=== PATIENT | male | born 1955 | race Caucasian/White ===

== ENCOUNTER 2020-04-06 08:47 | Observation (INO) | payer MEDICARE, OTHER, SELFPAY ==
[2020-04-06] VITALS (32 sets, daily range): BP systolic 95–147; BP diastolic 44–95; PULSE 52–79; RESP 9–22; TEMP 35.6–36.6; O2SAT 96–100; BMI 42.2
--- NOTE | ~2020-04-06 | XR_ITS ---
EXAMINATION: XR chest 1V portable EXAM DATE: 04/06/2020 09:17 INDICATION: Chest pain, spasms to body. TECHNIQUE: Portable AP frontal chest x-ray was obtained. Comparison is made to prior examination from 01/01/2019. FINDINGS: There is a right-sided IJ approach Weaver catheter. Mild cardiomegaly. There is pulmonary vascular congestion. No confluent consolidation, pneumothorax or pleural effusion suspected. Patient has diffuse idiopathic skeletal hyperostosis (DISH). IMPRESSION: Cardiomegaly, pulmonary vascular congestion. Reviewed, dictated and finalized at location A.
--- NOTE | 2020-04-06 08:54 | ECG_ITS ---
Measurements Intervals [place] Rate: 72 P: TX: 0 QRS: -83 QRSD: 118 T: 103 QT: 400 QTc: 438 Interpretive Statements ATRIAL FIBRILLATION LOW QRS VOLTAGE IN PRECORDIAL LEADS INCOMPLETE RIGHT BUNDLE BRANCH BLOCK INFERIOR INFARCT, AGE INDETERMINATE ANTEROSEPTAL INFARCT, AGE INDETERMINATE BASELINE ARTIFACT- II, III ABNORMAL ECG Electronically Signed On 04-06-2020 15:05:08 CDT by Jaiden Munoz D.O.
--- NOTE | 2020-04-06 09:09 | ED.CHESTPAIN ---
HPI - Chest Pain General Chief Complaint: Chest Pain Stated Complaint: cp Time Seen by Provider: 04/06/20 08:54 Source: RN notes reviewed History of Present Illness HPI narrative: Patient presents emergency department from dialysis for chest pain. Patient was approximately 2 hours and was 3 and half hour dialysis when he began to experience pain in his left middle chest going to his left chest and his left arm. Described as a pressure at that time. He also states he began to feel very anxious during that time. Patient was given Benadryl 50 mg by staff there and transported the ED for further evaluation. Patient currently states his chest pain resolved but is still feeling anxious. States he does have a history of anxiety. Notes associated shortness of breath with the symptoms. Denies any fevers or chills abdominal pain nausea vomiting or any other symptoms. Patient states he has a history of a previous IN as well as history of atrial fibrillation he is followed by cardiology in [place] patient states he has a history of 2 previous cardiac stents Related Data Home Medications Medication Instructions Recorded Confirmed allopurinol 100 mg DAILY 04/06/20 04/06/20 apixaban [Eliquis] 5 mg BID 04/06/20 04/06/20 brimonidine 0.2 % OPHTHALMIC (EYE) BID 04/06/20 04/06/20 carvedilol 3.125 mg BID 04/06/20 04/06/20 dorzolamide-timolol 22.3 ml BID 04/06/20 04/06/20 gabapentin 300 mg BID 04/06/20 04/06/20 insulin aspart U-100 [Novolog See Rx Instructions .ROUTE .COMPLEX 04/06/20 04/06/20 Flexpen U-100 Insulin] rosuvastatin 10 mg DAILY 04/06/20 04/06/20 sertraline 100 mg DAILY 04/06/20 04/06/20 trazodone 50 mg PO PRN PRN 04/06/20 04/06/20 Allergies Allergy/AdvReac Type Severity Reaction Status Date / Time shellfish derived Allergy Intermediate Unknown Verified 04/06/20 09:08 heparin Allergy Unknown Unknown Verified 04/06/20 09:08 iohexol Allergy Unknown Unknown Verified 04/06/20 09:09 [From contrast - CT, X-RAY] spironolactone Allergy Unknown Unknown Verified 04/06/20 09:08 [From Aldactone] Yvvferr-Jhm-Gii Reductase Allergy Unknown Unknown Verified 04/06/20 09:08 Inhibitor Review of Systems Review of Systems: Narrative: Gen.: Denies fevers or chills ENT: Denies congestion Respiratory: Reports shortness of breath CV: Reports chest pain GI: Denies abdominal pain nausea, emesis or diarrhea denies burning, urgency, frequency or hematuria Musculoskeletal: Denies back pain or muscle pain Neuro: Denies numbness, tingling, weakness or focal weakness Skin: Denies rash Except as documented, all other systems reviewed and negative [facility] Past Medical History Medical History (Updated 04/06/20 @ 18:55 by Wai Nur DO) Atrial fibrillation Chronic kidney disease with end stage renal failure on dialysis Social History Social History (Updated 04/06/20 @ 09:10 by Wai Nur DO) Smoking status: Never smoker Alcohol intake: never Substance use: never Substance use type: does not use Gender identity (if verbalized by the patient): Male Spiritual care concerns: No Exam Narrative: Exam Narrative: APPEARANCE: Mildly anxious in appearance nontoxic, resting in bed EYES: EOMI HEENT: Normocephalic, atraumatic, OMM RESPIRATORY: No respiratory distress Clear to auscultation bilaterally with no rhonchi wheezing or rales. CARDIOVASCULAR: Regular rate and rhythm without murmurs rubs or gallops. ABDOMINAL: Soft, nontender, nondistended, no rebound or guarding Extremities: Moves all extremities, 3+ edema of the bilateral lower extremities NEURO: Awake and alert. Following commands, speech normal, no focal deficits SKIN:: Warm, dry. No rashes lesions or abrasions PSYCHIATRIC: Normal affect/mood, Course Course Emergency Course: Discussed with Dr. Isaac presentation work-up. Agrees with admission at this time Discussed with Dr. Lock presentation work-up agrees with admission at this time Discuss
[2020-04-06 09:14] LABS: Basophils Percent Auto 0.8 % (0.2-1.2); Eosinophils Absolute Auto 0.2 K/mm3 (0-0.3); Eosinophils Percent Auto 4.2 % (0-4.4); Hematocrit 24.8 % (42.0-52.0); Hemoglobin 7.9 g/dL (14.0-18.0); Immature Granulocyte Absolute 0.02 K/mm3 (0.00-0.031); Immature Granulocyte Percent A 0.4 % (0-0.5); Lymphocytes Absolute Auto 0.97 K/mm3 (0.9-3.2); Lymphocytes Percent Auto 20.4 % (18.3-44.2); Mean Corpuscular HGB Conc 31.9 g/dl (32-36); Mean Corpuscular Hemoglobin 25.5 pg (26-34); Mean Platelet Volume 10.5 fl (7.4-10.4); Monocytes Absolute Auto 0.6 K/mm3 (0.1-0.6); Monocytes Percent Auto 13.3 % (2.6-8.5); Neutrophils Absolute Auto 2.9 K/mm3 (1.3-6.7); Neutrophils Percent Auto 60.9 % (45.5-73.1); Platelet Count Result 168 k/mm3 (150-375); Red Cell Distribution Width 21.5 % (11.5-14.5); White Blood Count 4.8 K/mm3 (4.5-10.0)
[2020-04-06 09:20] LABS: Prothrombin Time 21.9 Seconds (11.1-14.7)
[2020-04-06 09:21] LABS: Partial Thromboplastin Time 38.4 SECONDS (22.3-36.8)
[2020-04-06 09:22] LABS: Anion Gap 13 mmol/L (8-16); Blood Urea Nitrogen 45 mg/dL (9-20); Calcium 8.5 mg/dL (8.4-10.2); Carbon Dioxide 25 mmol/L (22-30); Chloride 97 mmol/L (98-107); Estimated CRCL calculation 44 ml/min; Estimated Glomerular Filt Rate 32; Glucose 110 mg/dL (75-110); Potassium 4.5 mmol/L (3.4-5.0); Sodium 135 mmol/L (137-145)
[2020-04-06 09:34] LABS: Troponin I 0.029 ng/mL (0.000-0.034)
[2020-04-06 09:40] LABS: Platelet Estimate Adequate (Adequate)
[2020-04-06 09:41] LABS: Hypochromasia 2+ (NORMAL); Poikilocytosis 2+ (NORMAL); Target Cells 1+ (NORMAL)
[2020-04-06 09:42] LABS: Ovalocytes 2+ (NORMAL)
[2020-04-06 12:35] LABS: Troponin I 0.024 ng/mL (0.000-0.034)
--- NOTE | 2020-04-06 13:30 | ADMGEN ---
This patient, Rl Gomez, was admitted to IMU Room 213-01. Patient/family oriented to hospital policies and general routines including ID bracelet, bed and alarms, visiting hours, pain management, procedures, bathroom and other care routines, personal items, smoking policy, room service/diet, and visiting hours. Valuables list has been completed. Information on how to activate the Rapid Response Team has been discussed. Patient/Family are encouraged to report perceived risks to care and to ask questions if they do not understand what they are told or what they should do.
--- NOTE | 2020-04-06 13:39 | PM.CNCAR ---
Assessment and Plan Additional Plan this is a 64-year-old man with chronic complicated cardiovascular history also with advanced renal failure on dialysis for several weeks from what he describes. He was admitted to our hospital to rule out an acute coronary syndrome which seems unlikely based on the initial presentation. The electrocardiogram does not appear to be unchanged in comparison to tracings that are described by his established agronomy research manager. His biomarkers at least times the 1st set are negative. Was simply admitted for observation keep him on his standard medical regimen that he has been on if his biomarkers do not rise significantly he can be discharged for follow-up with his establish positions. I would not anticipate conducting an ischemic workup here at [facility] when he has longstanding cardiac care established at [facility] Barrington Lock MD [facility] History of Present Illness History of Present Illness Consult date/time: 04/06/20 13:39 Consult reason: chest pain Reason For Visit: Chest pain. Narrative: this is a 64-year-old man I am seeing at the request of the hospitalist to evaluate because of some chest pain that occurred this morning while he was being dialyzed. The patient has a history of longstanding are renal disease and apparently has recently developed progressive renal disease into this was recently started on hemodialysis. He states he was in the hospital at [facility] for almost the entire month of March was managed by his team of cardiologists, internists and buckle frame shaper. 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 During dialysis this morning apparently he was feeling unwell with a sense of anxiety and some shortness of breath. They summoned an ambulance and sent appeared [facility] for emergency department evaluation after which he was admitted to the hospital. The patient receives none of his medical care here at [place] from what I can tell. He feels fairly well now and does not describe any ongoing chest pain. The patient has a history of coronary artery disease as well as ventricular arrhythmias and ischemic cardiomyopathy. According to the chart that I have reviewed he presented in February of 2006 an acute anterior wall myocardial infarction at which time he underwent emergency PCI of the left anterior descending receiving a Cypher drug-eluting stent with successful revascularization. Since then it looks like his left ventricular ejection fraction according to the records of his agronomy research manager has been running about 35%. He has had some follow-up heart catheterization is the last 1 was done in September of 2010 which did not show any significant flow-limiting lesions. His last ischemia evaluation was in March of 2019 which did not show any significant ischemic burden. He did have a fixed defect compatible with his prior infarction. He also has a history of arrhythmias both second-degree AV block as well as a bifascicular block. He had a pacemaker / defibrillator device placed a long time ago. He states that in 2016 a following an attempt at upgrading the device to a biventricular pacemaker unfortunately the pocket became infected and the entire device and the leads had to be extracted. Since then he has not had a pacemaker or a defibrillator implanted. His electrocardiogram on arrival here shows sinus rhythm with second-degree AV block Mobitz type 1 and right bundle branch block and left anterior superior hemiblock. His troponin levels x1 set are not significantly abnormal. According to the record he also carries the diagnosis of paroxysmal atrial fibrillation. He was previously anticoagulated with apixaban is not currently apparently at the advice of his GI physician because of some esophageal erosions. Review of Systems Constitutional: Constitutional: Reports fatigue and Reports lethargy Eyes: Eye
--- NOTE | 2020-04-06 15:00 | PM.IMHP ---
H&P: HPI History of Present Illness Date/Time: 04/06/20 15:00 <Brenda Ibarra PA-C - Last Filed: 04/06/20 23:25> Chief complaint: Chest pain. <Brenda Ibarra PA-C - Last Filed: 04/06/20 23:25> Narrative: Rl Gomez is a a pleasant 64-year-old male with complicated medical history including coronary artery disease with history of stents, ischemic cardiomyopathy and ventricular arrhythmia with history of ICD insertion and subsequent removal due to pocket infection, paroxysmal atrial fibrillation not currently on anticoagulation end-stage renal disease recently started on hemodialysis, insulin-dependent diabetes, hypertension, anemia, and several other comorbidities who presented to the emergency department earlier today via EMS from dialysis for evaluation of chest pain. It sounds as though he was hospitalized at [facility] for almost the entire month of March 06 after he was initially admitted with a 45 lb weight gain. At that time he was started on dialysis and his volume status did improve, as well as his creatinine levels and there are hopes that he will not have to be on dialysis permanently. Today was his 3rd or 4th treatment since discharge from the hospital, and he has been tolerating them pretty well. Nearly 2 hours into his dialysis this morning he began feeling extremely anxious, restless, and shortness of breath and then developed a squeezing discomfort in his left anterior chest radiating into the left shoulder. He received Benadryl at dialysis and was given 324 mg aspirin and 1 sublingual nitroglycerin EN route to the hospital with improvement in the discomfort, which is not returned. He remains somewhat short of breath, mainly when lying supine. He denies associated chills, sweats, nausea, and vomiting. No pleuritic pain, palpitations, near-syncope, or syncope. <Brenda Ibarra PA-C - Last Filed: 04/06/20 23:25> Review of Systems Review of Systems: Narrative: Twelve systems were reviewed with pertinent positives and negatives as per HPI. No fever, chills, or sweats. He denies recent cold and flu symptoms. He has chronic lower extremity edema and lymphedema with chronic bilateral leg wounds for which he sees a wound care physician in [place]. These are stable and remain unchanged. He believes his diabetes is well controlled with recent hemoglobin A1c of around 6.1. He does have neuropathy in the lower legs. He related to myself and Dr. Lock that he was not taking apixaban at this time due to esophageal erosions, but this needs to be clarified. Except as documented, all other systems were reviewed and are negative. <Brenda Ibarra PA-C - Last Filed: 04/06/20 23:25> [facility] Past Medical History Medical History: Medical History (Updated 04/06/20 @ 21:26 by Brenda Ibarra PA-C) Chronic anemia Coronary artery disease End-stage renal disease on hemodialysis Glaucoma Hyperlipidemia Hypertension Insulin dependent diabetes mellitus Ischemic cardiomyopathy Patient reports recent ejection fraction of about 35%. Osteoarthritis Paroxysmal atrial fibrillation Ventricular tachyarrhythmia <Brenda Ibarra PA-C - Last Filed: 04/06/20 23:25> Surgical History Surgical History: Surgical History (Updated 04/06/20 @ 21:21 by Brenda Ibarra PA-C) History of bilateral knee arthroplasty History of cardiac catheterization (~2005) With history of stent to the LAD. History of implantable cardioverter-defibrillator (ICD) insertion With subsequent removal due to pocket infection. History of orthopedic surgery Right arm ORIF with hardware. History of tonsillectomy History of tracheostomy After lengthy hospitalization in 2018 for sepsis due to cellulitis. Status post debridement Multiple debridements of bilateral lower leg wounds over the years. <Brenda Ibarra PA-C - Last Filed: 04/06/20 23:25> Family History Family History: Family History (Updated 10
[2020-04-06 16:04] LABS: Troponin I 0.024 ng/mL (0.000-0.034)
[2020-04-07] VITALS (9 sets, daily range): BP systolic 116–118; BP diastolic 58–64; PULSE 45–70; RESP 20–22; TEMP 35.9–36.1; O2SAT 100
[2020-04-07] MEDS: GABAPENTIN 300 MG CAPSULE PO ×2 (00:59→08:46)
[2020-04-07] MEDS: traZODone HCL 50 MG TABLET PO (00:59)
[2020-04-07] MEDS: APIXABAN 5 MG TABLET PO ×2 (00:59→08:47)
[2020-04-07] MEDS: DORZOLAMIDE/TIMOLOL OPHTH SOL 10 ML BOTTLE 1 DROP EACH EYE ×2 (01:00→08:47)
[2020-04-07] MEDS: BRIMONIDINE TARTRATE 0.2% OP SOLN 5 ML BTL 1 DROP EACH EYE ×2 (01:00→08:47)
[2020-04-07 05:33] LABS: Basophils Percent Auto 0.9 % (0.2-1.2); Eosinophils Absolute Auto 0.3 K/mm3 (0-0.3); Eosinophils Percent Auto 5.9 % (0-4.4); Hematocrit 23.5 % (42.0-52.0); Hemoglobin 7.6 g/dL (14.0-18.0); Immature Granulocyte Absolute 0.01 K/mm3 (0.00-0.031); Immature Granulocyte Percent A 0.2 % (0-0.5); Lymphocytes Absolute Auto 0.93 K/mm3 (0.9-3.2); Mean Corpuscular HGB Conc 32.3 g/dl (32-36); Mean Corpuscular Hemoglobin 25.8 pg (26-34); Mean Corpuscular Volume 79.7 fl (80-100); Mean Platelet Volume 10.9 fl (7.4-10.4); Monocytes Absolute Auto 0.6 K/mm3 (0.1-0.6); Monocytes Percent Auto 13.7 % (2.6-8.5); Neutrophils Absolute Auto 2.4 K/mm3 (1.3-6.7); Neutrophils Percent Auto 57.3 % (45.5-73.1); Platelet Count Result 193 k/mm3 (150-375); Red Blood Count 2.95 M/mm3 (4.6-6.20); Red Cell Distribution Width 21.3 % (11.5-14.5); White Blood Count 4.2 K/mm3 (4.5-10.0)
[2020-04-07 05:51] LABS: Alanine Aminotransferase 9 U/L (4-50); Albumin Level 3.3 g/dL (3.5-5.1); Alkaline Phosphatase 107 U/L (38-126); Anion Gap 9 mmol/L (8-16); Aspartate Amino Transferase 20 U/L (17-59); Bilirubin,Total 0.7 mg/dL (0.2-1.3); Blood Urea Nitrogen 56 mg/dL (9-20); Calcium 8.5 mg/dL (8.4-10.2); Carbon Dioxide 26 mmol/L (22-30); Chloride 97 mmol/L (98-107); Estimated CRCL calculation 38 ml/min; Estimated Glomerular Filt Rate 27; Glucose 103 mg/dL (75-110); Potassium 4.2 mmol/L (3.4-5.0); Sodium 132 mmol/L (137-145)
[2020-04-07 06:18] LABS: Platelet Estimate Adequate (Adequate)
[2020-04-07 06:19] LABS: Atypical Lymphocytes Present; Ovalocytes 1+ (NORMAL)
[2020-04-07 06:20] LABS: Hypochromasia 1+ (NORMAL); Target Cells 1+ (NORMAL)
[2020-04-07 08:08] LABS: Glucose Point of Care 93 (65-105)
[2020-04-07] MEDS: allopurinoL 100 MG TABLET PO (08:45)
[2020-04-07] MEDS: carvediloL 3.125 MG TABLET PO (08:47)
[2020-04-07] MEDS: BUMETANIDE INJ 1 MG/4 ML VIAL 2 MG IV PUSH (08:50)
--- NOTE | 2020-04-07 09:43 | PM.PNCARD ---
Progress Note: A&P Additional Plan 64-year-old man with complicated cardiac history, previous myocardial infarction as well as ischemic cardiomyopathy. No objective evidence of an acute coronary syndrome. There is no further cardiac reason this gentleman needs to be hospitalized here at [place]. Follow-up will be with his established physicians at [facility] in [facility]. Barrington Lcok MD [facility] Subjective Date/time seen: Date of service: 04/07/20 09:43 Interval history: Follow-up visit in this 64-year-old man admitted with an episode of distress when he was being dialyzed yesterday. Admitted primarily to rule out acute coronary syndrome. Troponin sample are all within normal limits the patient was informed of this. No further chest pain. Patient was sleeping flat in bed when I entered the room to see him Exam Const: General: comfortable and no acute distress Eyes: Sclera: sclerae normal Neck: Neck: supple and no JVD Resp: Effort & Inspection: normal respiratory effort Auscultation: clear to auscultation bilaterally Cardio: Rate: regular rate Rhythm: regular rhythm GI: Auscultation: normal bowel sounds Skin: General skin exam: normal color Neuro: Cognition (Neuro): normal cognition Objective Data Vital Signs Vital Signs: Vital Signs - 24 hr 04/06/20 09:45 04/06/20 09:46 04/06/20 10:00 Temperature Pulse Rate 73 67 74 Respiratory Rate 17 17 16 Blood Pressure 117/73 Pulse Oximetry 100 99 04/06/20 10:01 04/06/20 10:15 04/06/20 10:16 Temperature Pulse Rate 75 73 74 Respiratory Rate 19 14 19 Blood Pressure 108/92 H 133/95 H Pulse Oximetry 96 100 100 04/06/20 10:30 04/06/20 10:31 04/06/20 10:45 Temperature Pulse Rate 73 74 73 Respiratory Rate 11 L 9 L Blood Pressure 122/74 Pulse Oximetry 96 04/06/20 10:46 04/06/20 10:48 04/06/20 11:00 Temperature Pulse Rate 73 73 72 Respiratory Rate 18 Blood Pressure 122/95 H 122/95 H Pulse Oximetry 97 100 100 04/06/20 11:02 04/06/20 11:15 04/06/20 11:17 Temperature Pulse Rate 72 72 Respiratory Rate Blood Pressure 106/50 L 95/44 L Pulse Oximetry 04/06/20 12:53 04/06/20 14:00 04/06/20 16:00 Temperature 35.6 C L Pulse Rate 55 L 55 L 63 Respiratory Rate 18 Blood Pressure 120/76 Pulse Oximetry 100 04/06/20 16:51 04/06/20 18:00 04/06/20 19:27 Temperature 36.0 C L 35.9 C L Pulse Rate 54 L 60 56 L Respiratory Rate 22 H 18 Blood Pressure 130/66 126/73 Pulse Oximetry 100 100 04/06/20 20:00 04/06/20 22:00 04/06/20 23:56 Temperature 36.1 C L Pulse Rate 57 L 58 L 52 L Respiratory Rate 18 Blood Pressure 122/65 Pulse Oximetry 100 100 04/07/20 00:00 04/07/20 01:00 04/07/20 02:00 Temperature Pulse Rate 62 45 L 60 Respiratory Rate Blood Pressure Pulse Oximetry 100 04/07/20 04:00 04/07/20 06:00 04/07/20 08:19 Temperature 36.1 C L 35.9 C L Pulse Rate 67 58 L 63 Respiratory Rate 20 22 H Blood Pressure 118/58 L 116/64 Pulse Oximetry 100 100 04/07/20 08:47 Temperature Pulse Rate 69 Respiratory Rate Blood Pressure Pulse Oximetry Intake/Output Intake/Output: Intake & Output 04/04/20 04/05/20 04/06/20 04/07/20 23:59 23:59 23:59 23:59 Intake Total 830 240 Output Total 100 400 Balance 730 -160 Meds/Results Medications: Active Medications Generic Name Dose Route Start Last Admin Trade Name Yazmin PRN Reason Stop Dose Admin Allopurinol 100 mg 04/07/20 08:00 04/07/20 08:45 Zyloprim PO 100 mg DAILY@0800 CHELSEY Administration Apixaban 5 mg 04/07/20 00:50 04/07/20 08:47 Eliquis PO 5 mg BID CHELSEY Administration Brimonidine Tartrate 1 drop 04/07/20 00:50 04/07/20 08:47 Alphagan 0.2% Op Soln EACH EYE 1 drop Q12HR CHELSEY Administration Carvedilol 3.125 mg 04/07/20 00:50 04/07/20 08:47 Coreg PO 3.125 mg Q12HR CHELSEY Administration Dextrose 12.5 gm 04/06/20 21:29 Dextrose
--- NOTE | 2020-04-07 11:16 | PM.DS ---
DS: Admitting Diagnosis Admitting Diagnosis Admitting Diagnosis: Chest pain. DS: Discharge Diagnosis Discharge Diagnosis (1) Chest pain: Code(s): R07.9 - Chest pain, unspecified Status: Acute (2) Paroxysmal atrial fibrillation: Code(s): I48.0 - Paroxysmal atrial fibrillation Status: Acute (3) End-stage renal disease on hemodialysis: Code(s): N18.6 - End stage renal disease; Z99.2 - Dependence on renal dialysis Status: Acute (4) Coronary artery disease: Code(s): I25.10 - Atherosclerotic heart disease of [place] coronary artery without angina pectoris Status: Acute (5) Ischemic cardiomyopathy: Code(s): I25.5 - Ischemic cardiomyopathy Status: Acute (6) Glaucoma: Code(s): H40.9 - Unspecified glaucoma Status: Acute (7) Insulin dependent diabetes mellitus: Status: Acute (8) Hypertension: Code(s): I10 - Essential (primary) hypertension Status: Acute (9) Hyperlipidemia: Code(s): E78.5 - Hyperlipidemia, unspecified Status: Acute (10) Chronic anemia: Code(s): D64.9 - Anemia, unspecified Status: Acute DS: Summary Hospital Course Reason for hospitalization: Chief complaint: Chest pain. <Brenda Ibarra PA-C - Last Filed: 04/06/20 23:25> Narrative: Rl Gomez is a a pleasant 64-year-old male with complicated medical history including coronary artery disease with history of stents, ischemic cardiomyopathy and ventricular arrhythmia with history of ICD insertion and subsequent removal due to pocket infection, paroxysmal atrial fibrillation not currently on anticoagulation end-stage renal disease recently started on hemodialysis, insulin-dependent diabetes, hypertension, anemia, and several other comorbidities who presented to the emergency department earlier today via EMS from dialysis for evaluation of chest pain. It sounds as though he was hospitalized at [facility] for almost the entire month of March 06 after he was initially admitted with a 45 lb weight gain. At that time he was started on dialysis and his volume status did improve, as well as his creatinine levels and there are hopes that he will not have to be on dialysis permanently. Today was his 3rd or 4th treatment since discharge from the hospital, and he has been tolerating them pretty well. Nearly 2 hours into his dialysis this morning he began feeling extremely anxious, restless, and shortness of breath and then developed a squeezing discomfort in his left anterior chest radiating into the left shoulder. He received Benadryl at dialysis and was given 324 mg aspirin and 1 sublingual nitroglycerin EN route to the hospital with improvement in the discomfort, which is not returned. He remains somewhat short of breath, mainly when lying supine. He denies associated chills, sweats, nausea, and vomiting. No pleuritic pain, palpitations, near-syncope, or syncope. 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 Status at Discharge Functional status at discharge: independent ambulation Overall status at discharge: patient is back to baseline Time Spent with Patient Time attestation: Total time spent providing and/or coordinating discharge services: Patient was seen and examined at the time of the discharge Condition at discharge is stable Code status: Full code. Time spent preparing disc
[2020-04-07 12:48] LABS: Free T4 Free Thyroxine Reflex 1.08 ng/dL (0.78-2.19)
[2020-04-07 13:53] LABS: Total Triiodothyronine (T3) 0.84 NG/ML (0.97-1.69)
== END 2020-04-07 13:37 | disposition home health service (06) ==
LOC: ANHED 09:28 → ANHIMU 11:20
PROVIDERS: Physician Assistant; Admitting Provider Family Medicine; Emergency Provider Emergency Medicine; Visit Provider Family Medicine
DX: R07.9 Chest pain, unspecified (principal); I12.0 Hypertensive chronic kidney disease with stage 5 chronic kidney disease or end stage renal disease; R06.02 Shortness of breath; N18.6 End stage renal disease; Z99.2 Dependence on renal dialysis; I48.0 Paroxysmal atrial fibrillation; R94.31 Abnormal electrocardiogram [ECG] [EKG]; I51.7 Cardiomegaly; R09.89 Other specified symptoms and signs involving the circulatory and respiratory systems; I25.10 Atherosclerotic heart disease of native coronary artery without angina pectoris; I25.2 Old myocardial infarction; E11.9 Type 2 diabetes mellitus without complications; I25.5 Ischemic cardiomyopathy; I44.1 Atrioventricular block, second degree; I45.10 Unspecified right bundle-branch block; D64.9 Anemia, unspecified; E78.5 Hyperlipidemia, unspecified; Z95.1 Presence of aortocoronary bypass graft; Z79.4 Long term (current) use of insulin; Z79.01 Long term (current) use of anticoagulants
CPT/HCPCS: 36415; 71045; 80048; 80076; 83036; 84439; 84443; 84480; 84484; 85025; 85610; 85730; 93005; 96374; 99285; A9270; G0378

== ENCOUNTER 2020-05-23 17:06 | Inpatient (IN) | payer MEDICARE, OTHER, SELFPAY ==
[2020-05-23] VITALS (28 sets, daily range): BP systolic 88–128; BP diastolic 44–78; PULSE 40–63; RESP 14–22; TEMP 36.1–36.3; O2SAT 89–100
--- NOTE | ~2020-05-23 | CT_ITS ---
EXAMINATION: CT cervical spine wo con DATE: 05/23/2020 23:18 INDICATION: Fall with head injury TECHNIQUE: Computed tomography (CT) of the cervical spine was performed without intravenous contrast. Automated exposure control and iterative reconstruction technique were employed. The dose-length pro duct was 500.35 mGy-cm. COMPARISON: None FINDINGS: Mild cervical thoracic levocurvature. Sagittal alignment is normal. Diffuse osteopenia. Vertebral bod y heights are normal. No fracture. Severe disc height loss at C5-C6. Mild disc height loss at C2-C3 t hrough C4-C5 and at C7-T1. Severe osteoarthritis at the atlantoaxial articulation. Cervical soft tiss ues are unremarkable. Mild right apical pleural-parenchymal scarring. The following disc levels are s pecifically discussed: C2-C3: The disc does not extend beyond the endplate margin. There is mild bilateral uncovertebral kenyatta nt osteoarthritis. There is moderate right and severe left facet joint osteoarthritis. There is mild bilateral neural foraminal stenosis. There is no central canal stenosis. C3-C4: Disc is mildly bulging. There is anterior and posterior spinal fusion across the bilateral unc overtebral and facet joints. There is mild right and moderate left neural foraminal stenosis. There i s mild central canal stenosis. C4-C5: Disc is mildly bulging. There is moderate bilateral uncovertebral joint osteoarthritis. There is moderate left and severe right facet joint osteoarthritis. There is mild bilateral neural foramina l stenosis. There is mild central canal stenosis. C5-C6: Posterior disc osteophyte complex is present. There is severe bilateral uncovertebral joint os teoarthritis. There is moderate left and severe right facet joint osteoarthritis. There is moderate r ight and mild to moderate left neural foraminal stenosis. There is mild central canal stenosis. C6-C7: Disc is mildly bulging. There is mild bilateral uncovertebral joint osteoarthritis. There is s evere bilateral facet joint osteoarthritis. There is minimal bilateral neural foraminal stenosis. The re is mild central canal stenosis. C7-T1: The disc does not extend beyond the endplate margin. There is no uncovertebral joint osteoarth ritis. There is severe bilateral facet joint osteoarthritis. There is minimal left neural foraminal s tenosis. There is no central canal stenosis. IMPRESSION: 1. Severe cervical spondylosis. No acute osseous abnormality. Reviewed, dictated and finalized at location H. MAKER
--- NOTE | ~2020-05-23 | XR_ITS ---
EXAMINATION: XR ribs RT 2V DATE: 05/23/2020 21:19 INDICATION: Right rib pain post fall TECHNIQUE: A frontal inspiratory view of the chest and 3 views of the right ribs were obtained. COMPARISON: Chest radiograph dated 05/23/2020 FINDINGS: No rib fractures identified. Again seen are opacities in the left mid to lower lung zone. Right lung is clear. No pneumothorax, pulmonary edema or pleural effusion. Cardiomegaly with pulmonary vascular congestion. Large-bore dual-lumen right internal jugular central venous catheter with distal tip at t he high right atrium. IMPRESSION: 1. No rib fracture. 2. Opacities in the left mid to lower lung zone which could represent atelectasis, pneumonia, small l eft pleural effusion or some combination thereof. Reviewed, dictated and finalized at [facility]. CERY CLERK IMPRESSION: 1. No rib fracture. 2. Opacities in the left mid to lower lung zone which could represent atelectas is, pneumonia, small left pleural effusion or some combination thereof.
--- NOTE | ~2020-05-23 | CT_ITS ---
EXAMINATION: CT brain wo con DATE: 05/23/2020 23:18 INDICATION: Fall with head injury TECHNIQUE: Computed tomography (CT) of the head was performed without intravenous contrast. Sagittal and coronal reconstructions were performed. Automated exposure control and iterative reconstruction t echnique were employed. The dose-length product was 681.00 mGy-cm. COMPARISON: None FINDINGS: No fracture. No acute intracranial hemorrhage, acute infarction or abnormal extra axial fluid collect ion. Ventricles are normal and symmetric. No mass/mass effect. Changes of left intraocular lens repla cement. There is an additional density along the inferomedial aspect of the left globe, possibly a Ba erveldt valve, but would correlate with ophthalmic history. The right orbit, paranasal sinuses and ma stoid air cells are normal. Intracranial calcified cerebral atherosclerosis is noted. IMPRESSION: 1. No fracture or acute intracranial process. Reviewed, dictated and finalized at [facility]. ORK INTELLIGENCE ANALYST
--- NOTE | ~2020-05-23 | CT_ITS ---
EXAMINATION: [facility] EXAM DATE: 05/26/2020 00:29 INDICATION: Fall, head injury. TECHNIQUE: Spiral CT of the head was performed without contrast. Axial, coronal and sagittal images were reviewed. The dose-length product (DLP) for this examination was 1362.00 mGy-cm. The exposure was tailored according to patient size, and iterative reconstruction (ASIR) was used as additional do se reduction technique. Comparison is made to prior examination from 05/23/2020. FINDINGS: There is no acute intraparenchymal hemorrhage. No evidence of intraparenchymal brain mass lesion. No evidence of acute infarction. There is no mass effect or midline shift. The ventricles are normal in size. There are no extra-axial collections. There are no acute calvarial fractures. Esperanza paige has had left-sided ocular lens surgery. Soft tissue is unremarkable. The visualized sinuses and mastoid air cells are well aerated. IMPRESSION: No acute intracranial findings. Reviewed, dictated and finalized at location A. CAL INSTRUMENTS ASSEMBLER
--- NOTE | ~2020-05-23 | XR_ITS ---
EXAMINATION: XR chest 1V DATE: 05/23/2020 19:00 INDICATION: Hypotension, bradycardia and syncope with right rib pain post fall TECHNIQUE: frontal view of the chest was obtained. COMPARISON: Chest radiograph dated 04/06/2020 FINDINGS: Large-bore dual-lumen right internal jugular central venous catheter with distal tip projecting over the region of the superior cavoatrial junction. Patient is rotated slightly towards the left. No sign ificant change accounting for differences in patient positioning and airspace opacities in the left m id and bilateral lower lung zones. Blunting at the left phrenic angle suggesting possible small left pleural effusion. No pneumothorax. Cardiomegaly with pulmonary vascular congestion. IMPRESSION: 1. Opacities in the left mid and bilateral lower lung zones which could represent atelectasis and/or pneumonia. 2. Possible small left pleural effusion. 3. Cardiomegaly. Reviewed, dictated and finalized at [facility]. TIONAL TESTER TYPEWRITERS IMPRESSION: 1. Opacities in the left mid and bilateral lower lung zones which could represe nt atelectasis and/or pneumonia. 2. Possible small left pleural effusion. 3. Cardiomegaly.
--- NOTE | 2020-05-23 17:11 | ECG_ITS ---
Measurements Intervals [place] Rate: 44 P: 128 TX: 62 QRS: -77 QRSD: 112 T: 119 QT: 499 QTc: 429 Interpretive Statements SINUS OR ECTOPIC ATRIAL BRADYCARDIA WITH FIRST DEGREE AV BLOCK RIGHT BUNDLE BRANCH BLOCK BASELINE ARTIFACT- II, III, AVF ABNORMAL ECG Electronically Signed On 05-23-2020 20:18:42 [employer]NAGER [employer]CH[employer] by Jaiden Munoz D.O.
[2020-05-23] MEDS: SODIUM CHLORIDE 0.9% IV 1,000 ML 999 ML IV CONT (17:45)
--- NOTE | 2020-05-23 17:55 | ED.GENADULT ---
HPI - General Adult General Chief complaint: Chest Pain Stated complaint: cp, sob, fall Time Seen by Provider: 05/23/20 17:16 Source: patient and EMS Limitations: no limitations History of Present Illness HPI narrative: 64 years old white male presents with right chest pain after a fall this morning. Patient denies any fever, chills, nausea, vomiting, shortness of breath, exposure to anybody with COVID-19. Patient had recent diagnosis of kidney failure, on hemodialysis 1 month ago, scheduled for dialysis this morning and usually patient takes alprazolam prior to the dialysis day. Got up this morning to go to the bathroom lost his balance and fell, possible head and neck injury, also right chest pain after the fall. Patient is not sure what did he had in the way down to the floor. No loss of consciousness. Patient on Eliquis, history of atrial fibrillation. History of diabetes with diabetic ulcers and wound lower extremities for 2 years, was seen by his wound care doctor yesterday and everything was okay. Related Data Home Medications Medication Instructions Recorded Confirmed Eliquis 5 mg PO BID 04/06/20 04/06/20 allopurinol 100 mg PO DAILY 04/06/20 04/06/20 brimonidine 0.2 % OPHTHALMIC (EYE) BID 04/06/20 04/06/20 carvedilol 3.125 mg PO BID 04/06/20 04/06/20 dorzolamide-timolol 22.3 ml OPHTHALMIC (EYE) BID 04/06/20 04/06/20 gabapentin 300 mg PO BID 04/06/20 04/06/20 insulin aspart U-100 [Novolog See Rx Instructions .ROUTE .COMPLEX 04/06/20 04/06/20 Flexpen U-100 Insulin] rosuvastatin 10 mg PO DAILY 04/06/20 04/06/20 sertraline 100 mg PO DAILY 04/06/20 04/06/20 trazodone 50 mg PO PRN PRN 04/06/20 04/06/20 Allergies Allergy/AdvReac Type Severity Reaction Status Date / Time shellfish derived Allergy Intermediate Unknown Verified 05/23/20 17:40 heparin Allergy Unknown Unknown Verified 05/23/20 17:40 iohexol Allergy Unknown Unknown Verified 05/23/20 17:40 [From contrast - CT, X-RAY] spironolactone Allergy Unknown Unknown Verified 05/23/20 17:40 [From Aldactone] Bnuzgjo-Iek-Vfe Reductase Allergy Unknown Unknown Verified 05/23/20 17:40 Inhibitor Review of Systems Review of Systems: Narrative: CONSTITUTIONAL: Denies fever, chills, or sweats. EYES: Denies visual changes, redness, or discharge. ENT: Denies rhinorrhea, congestion, sore throat, or otalgia. CARDIOVASCULAR: Denies chest pain, palpitations, or edema. RESPIRATORY: Denies cough or dyspnea. GASTROINTESTINAL: Denies abdominal pain, complaining of intermittent nausea GENITOURINARY: Denies dysuria or hematuria. SKIN: Denies rash or itching. Chronic wound of the lower extremities MUSCULOSKELETAL: Chronic back pain and joint pain and myalgia NEUROLOGIC: Denies headache, numbness, or weakness. PSYCHIATRIC: Depression PMFSH Past Medical History Medical History (Updated 05/23/20 @ 21:49 by Lizbet Anderson NP) Amputation toe 2nd toe on the right Charcot's joint of foot Chronic anemia Chronic wound of extremity Coronary artery disease End-stage renal disease on hemodialysis Glaucoma Hyperlipidemia Hypertension Insulin dependent diabetes mellitus Ischemic cardiomyopathy Patient reports recent ejection fraction of about 35%. Osteoarthritis Paroxysmal atrial fibrillation Ventricular tachyarrhythmia Surgical History Surgical History (Updated 05/23/20 @ 21:21 by Lizbet Anderson NP) History of bilateral knee arthroplasty History of cardiac catheterization (~2005) With history of stent to the LAD. History of implantable cardioverter-defibrillator (ICD) insertion With subsequent removal due to pocket infection. History of orthopedic surgery Right arm ORIF with hardware. History of tonsillectomy History of tracheostomy After lengthy hospitalization in 2018 for sepsis due to cellulitis. S/P dialysis catheter insertion Right chest Status post debridement Multiple debridements of bilateral lower leg wounds over the years. Family History Family
[2020-05-23 18:17] LABS: Basophils Percent Auto 0.3 % (0.2-1.2); Eosinophils Absolute Auto 0.1 K/mm3 (0-0.3); Immature Granulocyte Absolute 0.05 K/mm3 (0.00-0.031); Immature Granulocyte Percent A 0.7 % (0-0.5); Lymphocytes Absolute Auto 0.88 K/mm3 (0.9-3.2); Lymphocytes Percent Auto 12.6 % (18.3-44.2); Mean Corpuscular HGB Conc 30.9 g/dl (32-36); Mean Corpuscular Hemoglobin 24.5 pg (26-34); Mean Corpuscular Volume 79.3 fl (80-100); Mean Platelet Volume 11.1 fl (7.4-10.4); Monocytes Absolute Auto 0.5 K/mm3 (0.1-0.6); Monocytes Percent Auto 6.7 % (2.6-8.5); Neutrophils Absolute Auto 5.5 K/mm3 (1.3-6.7); Neutrophils Percent Auto 78.7 % (45.5-73.1); Nucleated Red Blood Cells Perc 0.6 % (0.0-0.2); Platelet Count Result 288 k/mm3 (150-375); Red Blood Count 2.61 M/mm3 (4.6-6.20); Red Cell Distribution Width 19.8 % (11.5-14.5)
[2020-05-23 18:19] LABS: Hemoglobin 6.4 g/dL (14.0-18.0)
[2020-05-23 18:20] LABS: Hematocrit 20.7 % (42.0-52.0)
--- NOTE | 2020-05-23 18:20 | PC.NURSE ---
Pt to CT.
[2020-05-23 18:27] LABS: INR 3.2; Partial Thromboplastin Time 41.7 SECONDS (22.3-36.8); Prothrombin Time 33.3 Seconds (11.1-14.7)
[2020-05-23 18:34] LABS: Potassium 6.2 mmol/L (3.4-5.0)
[2020-05-23 18:35] LABS: Alanine Aminotransferase 18 U/L (4-50); Albumin Level 3.5 g/dL (3.5-5.1); Alkaline Phosphatase 115 U/L (38-126); Anion Gap 13 mmol/L (8-16); Aspartate Amino Transferase 38 U/L (17-59); Bilirubin,Total 0.8 mg/dL (0.2-1.3); Blood Urea Nitrogen 83 mg/dL (9-20); CRP 2.8 mg/dL (<1.0); Calcium 8.6 mg/dL (8.4-10.2); Carbon Dioxide 23 mmol/L (22-30); Chloride 97 mmol/L (98-107); Estimated Glomerular Filt Rate 17; Glucose 193 mg/dL (75-110); Sodium 133 mmol/L (137-145)
--- NOTE | 2020-05-23 18:36 | PC.NURSE ---
Patient in CT; unable to lay flat for head and cervical spine scans due to feeling like he is unable to breathe. certified pharmacy tech states attempt at scan was made twice. Dr. Thakur made aware; states it is very important for pt to receive scan.
[2020-05-23 18:43] LABS: Troponin I < 0.012 ng/mL (0.000-0.034)
[2020-05-23] MEDS: ATROPINE SULFATE 1 MG/ML VIAL 0.4 MG IV PUSH (18:58)
[2020-05-23] MEDS: SODIUM BICARBONATE 8.4% 50 MEQ/50 ML VIAL IV PUSH (19:12)
[2020-05-23] MEDS: CALCIUM GLUCONATE 1,000 MG/10 ML VIAL 1000 MG IV PUSH (19:13)
[2020-05-23] MEDS: INSULIN HUMAN REGULAR (*BKC) 100 UNITS/ML 10 UNITS IV PUSH (19:13)
[2020-05-23] MEDS: DEXTROSE 50% 25 GM/50 ML SYRINGE IV PUSH (19:14)
[2020-05-23 19:31] LABS: Glucose Point of Care 146 (65-105)
[2020-05-23] MEDS: SODIUM CHLORIDE 0.9% IV 50 ML 300 ML (19:45)
[2020-05-23] MEDS: ONDANSETRON INJ 4 MG/2 ML VIAL IV PUSH ×2 (20:03→22:09)
[2020-05-23 20:21] LABS: Hemoglobin 6.2 g/dL (14.0-18.0)
[2020-05-23] MEDS: PANTOPRAZOLE SODIUM IV 40 MG VIAL IV PUSH (20:29)
--- NOTE | 2020-05-23 21:09 | PM.IMHP ---
H&P: HPI History of Present Illness Date/Time: 05/23/20 21:09 Chief complaint: cp, sob, fall Narrative: Rl Gomez is a 64 year old male who has end-stage renal disease. He has dialysis on Wednesday. The patient just recently started taking alprazolam because he has difficulty sitting through dialysis. The majority of his doctors are at [facility]. The patient has a history of atrial fibrillation and has been on Coreg and Eliquis. At 1 point he was taken off of a blood thinner but now is back on. Patient was very weak and dizzy and fell today and was complaining of chest pain. Patient's H&H is noted to be 6.2 and 20.0. The patient was placed on oxygen at 2 L per nasal cannula because he became short of breath. Patient just recently started dialysis about 1 month ago. The patient was here from April 06 to April 07 with complaints of chest pain. His troponins were negative and he was released to home. The patient has a history of coronary artery disease with history of stents, ischemic cardiomyopathy and ventricular arrhythmia. The patient had AICD insertion with subsequent removal due to a pocket infection. His paroxysmal atrial fibrillation but was not on anticoagulations noted on 04/06/2020 but now is on Eliquis. Today the patient fell and is not real clear if the patient had his head. He was complaining of some neck pain as well. The patient was unable to do a CT of the brain due to anxiety. Where not able to give him anything for for anxiety due to his low blood pressure and low heart rate. Patient is dozing off while I am in the room talking to him. ED provider explained that the patient was guaiac positive and I had asked him to consult GI specialist. Also the patient was given atropine for a low heart rate in the 30s and 40s. I had asked the ER physician to consult Cardiology prior to admitting the patient. Patient has no fever chills. Patient has chronic diabetic wounds to his right foot and left lower extremity.. Blood is been ordered for the patient. Patient's potassium 6.2. Nephrology has been consulted. IV fluids in the emergency room, calcium gluconate, D50, sodium bicarb, regular insulin IV for the hyperkalemia. He was given atrophy it looks like 2 to 3 times for his bradycardia. 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 Chest x-ray read as 1. Opacities in the left mid and bilateral lower lung zones which could represent atelectasis and/or pneumonia. 2. Possible small left pleural effusion. 3. Cardiomegaly. The patient was COVID swabbed in the emergency room. The patient was placed in inpatient status for IMU for his symptomatic bradycardia GI bleed anemia hyperkalemia hyponatremia coagulopathy. Date of service is 05/23/2020 Review of Systems Review of Systems: All systems reviewed & are unremarkable except as noted in HPI and below Constitutional: Constitutional: Reports as per HPI and Reports no additional constitutional complaints Eyes: Eyes: Reports as per HPI and Reports no additional eye complaints ENT: Reports system reviewed and no additional complaints, except as documented and Reports Normal hearing present Cardiovascular: Cardiovascular: Reports no additional cardiovascular complaints Respiratory: Respiratory: Reports no additional respiratory complaints and Reports no additional respiratory complaints Gastrointestinal: Gastrointestinal: Reports as per HPI and Reports no additional gastrointestinal complaints Musculoskeletal: Musculoskeletal: Reports no additional musculoskeletal complaints Integumentary/Breasts: Skin/Breast: Reports system reviewed and no additional complaints, except as docu and Reports as per HPI Neurologic: Reports system reviewed and no additional complaints, except as documented, Reports as per HPI and Reports Normal hearing present Psychiatric: Psychiatric: Reports no additional psychiatric complaints and Reports as per HPI Endocrine: Endocrine: Reports no a
[2020-05-23 21:36] LABS: Add Urine Microscopic? YES; Appearance Urine Cloudy (Clear); Bacteria Urine Trace /hpf; Bilirubin Urine Negative (Negative); Color Urine Amber (Yellow); Glucose Urine UA Negative (Negative); Ketones Urine Negative (Negative); Leukocyte Esterase Ur Trace LEU/UL (Negative); Mucus Urine Rare /lpf; Nitrate Urine Negative (Negative); Protein Urine 2+ mg/dL (Negative); Specific Grav Ur 1.017 (1.001-1.035); Squamous Epithelial Cell Urine Occasional /hpf (Few)
[2020-05-23 21:37] LABS: Blood Urine Negative (Negative)
[2020-05-23] MEDS: ATROPINE SULFATE 1 MG/10 ML SYRINGE (21:37)
[2020-05-23] MEDS: SODIUM CHLORIDE 0.9% IV 250 ML 30 ML IV CONT (21:38)
[2020-05-23] MEDS: DOPamine 400 MG/D5W 250 ML 400 MG/250 ML BAG 24.1 MG IV CONT (21:47)
--- NOTE | 2020-05-23 21:50 | PC.NURSE ---
DOPAMINE @ 5 MVG/KG/MIN RATE @ 24.1
[2020-05-23] MEDS: LORazepam INJ (*CRX) 2 MG/ML VIAL 0.5 MG IV PUSH (22:45)
[2020-05-23] MEDS: LORazepam INJ (*CRX) 2 MG/ML VIAL (22:49)
[2020-05-24] VITALS (41 sets, daily range): BP systolic 98–147; BP diastolic 50–95; PULSE 42–90; RESP 16–60; TEMP 35.5–36.8; O2SAT 94–100; BMI 39.6
[2020-05-24] MEDS: SODIUM CHLORIDE 0.9% IV 250 ML 30 ML
[2020-05-24] MEDS: LORazepam INJ (*CRX) 2 MG/ML VIAL IV PUSH (00:40)
[2020-05-24 00:50] LABS: Alveolar/Arterial O2 Gradient 189.7 mmHg; Base Excess ABG -4.9 mEq/l (+/-2.0); Carboxyhemoglobin 0.3 % THb (0-2.0); Fractional Inspired Oxygen 40 %; HCO3 ABG 20.2 mEq/l (22.0-26.0); Methemoglobin ABG 0.4 %THb (0-1.5); Oxyhemoglobin 82.2 % THb (90.0-100.0); PCO2 ABG 37.2 mmHg (35.0-45.0); PO2 ABG 52.7 mmHg (80.0-100.0); PO2 FiO2 Ratio Arterial Blood 1.32 %; Reduced Hemoglobin 17.1 %THb (0-5.0); Total Hemoglobin 8.6 g/dL (12.0-18.0); pH ABG 7.353 (7.350-7.450)
[2020-05-24 00:52] LABS: Device NASAL CANNULA; Site Drawn LEFT BRACHIAL
--- NOTE | 2020-05-24 00:54 | WPDPROCEDUR ---
Procedures Central Line Placement Right Femoral: Central Line Date: 05/24/20 Central Line Time: 00:55 Discussed w/ the patient/family/POA,the placement of a central venous catheter, including its clinical necessity/indication & associated potential risks, benifits and alternatives.: Yes Time Out Performed: Yes Patient Position: supine Patient placed on monitor/pulse ox: Yes Provider Prep: mask, sterile gown, sterile gloves, Max. sterile barrier precautions and hand hygiene with conventional soap/water or alcohol based hand rub Central line prep: 2% Chlorhexidine scrub Local anesthesia used: lidocaine 1% Amount of anesthesia used (ml): 4 Sterile US Technique with sterile gel/sterile probe covers: Yes Central line lumen inserted: triple [place]: 7 Length (cm): 20 Depth of Insertion (cm): 20 Post Procedure: sutured in place, good blood return, all ports aspirated, flushed, capped, transparent dressing, securement product and aseptic technique maintained throughout procedure Patient tolerated procedure: well Complications: none Additional comments: Date of service of procedure was 05/24/2020 at 00:30 hrs.
[2020-05-24 03:39] LABS: Basophils Absolute Auto 0.1 K/mm3 (0.0-0.1); Basophils Percent Auto 0.6 % (0.2-1.2); Eosinophils Absolute Auto 0.1 K/mm3 (0-0.3); Eosinophils Percent Auto 0.9 % (0-4.4); Hemoglobin 8.3 g/dL (14.0-18.0); Immature Granulocyte Absolute 0.07 K/mm3 (0.00-0.031); Immature Granulocyte Percent A 0.7 % (0-0.5); Immature Platelet Fraction Pct 3.4 % (0.9-11.2); Lymphocytes Absolute Auto 0.62 K/mm3 (0.9-3.2); Lymphocytes Percent Auto 6.1 % (18.3-44.2); Mean Corpuscular HGB Conc 31.9 g/dl (32-36); Mean Corpuscular Hemoglobin 25.5 pg (26-34); Mean Platelet Volume 11.2 fl (7.4-10.4); Monocytes Absolute Auto 0.7 K/mm3 (0.1-0.6); Monocytes Percent Auto 6.4 % (2.6-8.5); Neutrophils Absolute Auto 8.7 K/mm3 (1.3-6.7); Neutrophils Percent Auto 85.3 % (45.5-73.1); Nucleated Red Blood Cells Perc 0.2 % (0.0-0.2); Platelet Count Result 343 k/mm3 (150-375); Red Blood Count 3.25 M/mm3 (4.6-6.20); Red Cell Distribution Width 18.9 % (11.5-14.5); White Blood Count 10.2 K/mm3 (4.5-10.0)
[2020-05-24 03:53] LABS: Alanine Aminotransferase 19 U/L (4-50); Albumin Level 3.8 g/dL (3.5-5.1); Alkaline Phosphatase 125 U/L (38-126); Anion Gap 13 mmol/L (8-16); Aspartate Amino Transferase 35 U/L (17-59); Bilirubin,Total 1.6 mg/dL (0.2-1.3); Blood Urea Nitrogen 85 mg/dL (9-20); Calcium 8.8 mg/dL (8.4-10.2); Carbon Dioxide 24 mmol/L (22-30); Chloride 98 mmol/L (98-107); Estimated Glomerular Filt Rate 17; Glucose 128 mg/dL (75-110); Magnesium 2.5 mg/dL (1.6-2.3); Potassium 6.4 mmol/L (3.4-5.0); Sodium 135 mmol/L (137-145)
[2020-05-24] MEDS: SODIUM BICARBONATE 8.4% 50 MEQ/50 ML VIAL IV PUSH ×2 (04:36→09:58)
[2020-05-24] MEDS: CALCIUM GLUC 1,000 MG/NS 50 ML 1,000 MG/50 ML BAG 100 MG IVPB (04:36)
[2020-05-24] MEDS: DEXTROSE 50% 25 GM/50 ML SYRINGE IV PUSH ×2 (04:37→09:57)
[2020-05-24] MEDS: INSULIN HUMAN REGULAR (*BKC) 100 UNITS/ML 10 UNITS IV PUSH ×2 (04:37→09:58)
--- NOTE | 2020-05-24 06:00 | ECG_ITS ---
Measurements Intervals [place] Rate: 53 P: 158 DE: 77 QRS: -79 QRSD: 119 T: 93 QT: 464 QTc: 437 Interpretive Statements ATRIAL FIBRILLATION WITH SLOW VENTRICULAR RESPONSE RIGHT BUNDLE BRANCH BLOCK INFERIOR INFARCT, AGE INDETERMINATE BASELINE ARTIFACT- V2 ABNORMAL ECG Electronically Signed On 05-24-2020 10:49:27 MOTION PICTURE OPERATOR by Jaiden Munoz D.O.
[2020-05-24] MEDS: DOPamine 400 MG/D5W 250 ML 400 MG/250 ML BAG 24.1 MG IV CONT (08:22)
[2020-05-24] MEDS: PANTOPRAZOLE SODIUM IV 40 MG VIAL IV PUSH ×2 (08:37→21:20)
[2020-05-24 09:22] LABS: Hemoglobin 8.1 g/dL (14.0-18.0)
[2020-05-24 09:39] LABS: Anion Gap 14 mmol/L (8-16); Blood Urea Nitrogen 89 mg/dL (9-20); Calcium 8.8 mg/dL (8.4-10.2); Carbon Dioxide 23 mmol/L (22-30); Chloride 98 mmol/L (98-107); Estimated CRCL calculation 23 ml/min; Estimated Glomerular Filt Rate 15; Glucose 76 mg/dL (75-110); Potassium 6.2 mmol/L (3.4-5.0); Sodium 135 mmol/L (137-145)
[2020-05-24] MEDS: ALBUTEROL SULFATE NEB 2.5 MG/0.5 ML INH 15 MG INHALATION (09:54)
--- NOTE | 2020-05-24 12:07 | WPDCNINT ---
Assessment and Plan Assessment and plan (1) Bradycardia: Code(s): R00.1 - Bradycardia, unspecified Status: Acute Assessment and Plan: patient presented bradycardia, related to hyperkalemia, AV node dysfunction since patient has had an AICD and pacemaker in the past - patient to get dialyzed today - currently on dopamine, once dialysis done with correction of potassium, dopamine should come off, if not patient could have AV node dysfunction - appreciate Cardiology evaluation recommendation. Discussed with cardiology , will wait post dialysis and see if the bradycardia improves (2) Acute GI bleeding: Code(s): K92.2 - Gastrointestinal hemorrhage, unspecified Status: Acute Assessment and Plan: patient with severe anemia, stool guaiac positive in the ER - GI has been consulted - patient has been on Eliquis for atrial fibrillation, which is currently on hold - patient Protonix, switched to q.12H (3) Hyperkalemia: Code(s): E87.5 - Hyperkalemia Status: Acute Assessment and Plan: hyperkalemia likely related to end-stage renal disease and missing of dialysis - patient has been treated with insulin/D50, Kayexalate, bicarb, albuterol nebulized - nephrology following the patient, will be dialyzed today (4) Anemia: Qualifiers: Anemia type: unspecified type Qualified Code(s): D64.9 - Anemia, unspecified Code(s): D64.9 - Anemia, unspecified Status: Acute Assessment and Plan: severe anemia with hemoglobin of 6.2 - patient was transfused 2 units of packed RBCs overnight with repeat hemoglobin of 8.3 this morning - INR 3.2, patient is on Eliquis - GI has been consulted (5) Suspected COVID-19 virus infection: Code(s): Z20.828 - Contact with and (suspected) exposure to other viral communicable diseases Status: Acute Assessment and Plan: SARS-CoV-2 PCR has been obtained and pending - continue droplet, airborne, contact isolation /precautions (6) Chronic kidney disease with end stage renal failure on dialysis: Code(s): N18.6 - End stage renal disease; Z99.2 - Dependence on renal dialysis Status: Acute Assessment and Plan: nephrology following the patient, - dialysis per Nephrology (7) Ischemic cardiomyopathy: Code(s): I25.5 - Ischemic cardiomyopathy Status: Acute Assessment and Plan: ischemic cardiomyopathy with EF of 35% from medical records - will obtain echocardiogram (8) Insulin dependent diabetes mellitus: Status: Acute Assessment and Plan: continue sliding scale insulin Accu-Cheks Additional Plan discussed with patient updated with his condition and plan of care code status: Full code critical care time spent: 43 minutes Due to a high probability of clinically significant, life threatening deterioration, the patient required my highest level of preparedness to intervene emergently and I personally spent this critical care time directly and personally managing the patient. This critical care time included obtaining a history; examining the patient; pulse oximetry; ordering and review of studies; arranging urgent treatment with development of a management plan; evaluation of patient's response to treatment; frequent reassessment; and discussions with other providers. It was exclusive of separately billable procedures and treating other patients and teaching time. Please see Assessment and Plan section and the rest of the note for further information on patient assessment and treatment Bagger And Stock Handler Helper Consult Note Consult date: 05/24/20 Time Seen: 07:22 Reason for consult: chest pain, fall, shortness of breath, hyperkalemia, end-stage renal disease on dialysis which she missed on 05/23/2020 , severe anemia HPI: Rl Gomez is a 64 year old male with past medical history of ventricular tachyarrhythmias, paroxysmal atrial fibrillation on Eliquis, Coronary artery disease
[2020-05-24 12:14] LABS: Hepatitis B Surface Antigen Negative (Negative)
[2020-05-24 12:19] LABS: Hepatitis B Core IgM Result Negative (Negative)
[2020-05-24 12:31] LABS: Hepatitis B Surface Anti Res Negative
--- NOTE | 2020-05-24 12:31 | PM.CNCAR ---
Assessment and Plan Additional Plan This is a 64-year-old gentleman with: Ischemic cardiomyopathy, chronic atrial fibrillation and chronic right bundle branch block on his ECG. He presents after falling and being seen in the emergency department. I am seeing him today because of his bradycardia. It is relatively likely that his bradycardia is caused by his hyperkalemia. It should be noted that he does have some baseline AV node dysfunction is he really does not require any significant rate control regimen to maintain heart rate. One would hope and expect that when he was dialyzed and his potassium levels normalize his heart rate will improve. At this point I do not have any other specific cardiac recommendations. Barrington Lock MD [facility] History of Present Illness History of Present Illness Consult date/time: 05/24/20 12:31 Consult reason: atrial fibrillation Reason For Visit: GI bleed/anemia/hyperkalemia/hyponatremia/coagulap Narrative: This is a 64-year-old man who I know from a consultation a month ago who has a complex medical history. I am seeing him at the request of the hospitalist and waste management specialist staff because of bradycardia. The patient is known to have ischemic heart disease and a significant ischemic cardiomyopathy. He is also known to have chronic atrial fibrillation. He receives his medical care out at [facility] I believe in [facility] some of the notes in the chart now say that his physicians are at [facility]. In any event prior to a month ago I had not seen this patient or participated in his care. He has end-stage renal disease and requires hemodialysis. The patient was brought to [facility] room according to the chart because of a fall. The circumstances of the fall are not clear a core upon reviewing the chart the patient's mental status at this point is such that he is not capable of providing much in the way of any history. With some effort he did wake up and respond to questions but is not able to participate or provide much in the way of any meaningful history. It does not appear that he is having any chest pain dyspnea or other obvious cardiac complaints. He does have chronic atrial fibrillation with a right bundle branch block. Upon arrival here at the hospital this time it is noted that he is bradycardic his initial electrocardiogram shows atrial fibrillation with a junctional escape rhythm with a heart rate in the high 40s and low 50s. He is hyperkalemic of note with a potassium of 6.4. In that setting we are seeing him in consultation. The physicians that saw him last evening attempted to give him some atropine because of the some bradycardia which of course did not change the rhythm at all since the underlying rhythm is AFib. The electrocardiogram other than the slower heart rate does not look any different than the tracing from a month ago. According to the previous records his cardiologists in [place] had placed a defibrillator in this man in the past because of his low ejection fraction. Unfortunately the device was infected and had to be removed and obviously has not been replaced with anything else. Review of Systems Review of Systems: ROS unobtainable: Yes unobtainable due to mental status PMFSH Past Medical History Medical History (Updated 05/23/20 @ 21:49 by Lizbet Anderson NP) Amputation toe 2nd toe on the right Charcot's joint of foot Chronic anemia Chronic wound of extremity Coronary artery disease End-stage renal disease on hemodialysis Glaucoma Hyperlipidemia Hypertension Insulin dependent diabetes mellitus Ischemic cardiomyopathy Patient reports recent ejection fraction of about 35%. Osteoarthritis Paroxysmal atrial fibrillation Ventricular tachyarrhythmia Surgical History Surgical History (Updated 05/23/20 @ 21:21 by Lizbet Anderson NP) History of bilateral knee arthroplasty History of cardiac catheterization (~2005) With history of stent to the LA
[2020-05-24 12:52] LABS: Iron 20 ug/dL (49-181)
[2020-05-24 13:01] LABS: Percent Iron Saturation 6 % (20-50)
[2020-05-24] MEDS: EPOETIN ALFA-EPBX 10,000 UNITS/ML VIAL 10000 UNITS IV PUSH (13:13)
--- NOTE | 2020-05-24 14:04 | WPDGICN ---
Assessment and Plan Assessment and plan (1) Anemia: Qualifiers: Anemia type: unspecified type Qualified Code(s): D64.9 - Anemia, unspecified Code(s): D64.9 - Anemia, unspecified Status: Acute Assessment and Plan: Patient has a chronic anemia with a slight decline in hemoglobin from baseline of 8 to approximately 6 and half. He is now status post transfusion. Occult blood in it was identified in the stool. But no obvious signs for active GI blood loss. Patient is anticoagulated currently with Eliquis anticoagulation because of atrial fibrillation. Plan at the present time is to hold Eliquis anticoagulation will consider GI evaluation to search for possible ulcer or other source of blood loss. However this will need to be deferred until is electrolyte and mental status has improved somewhat. Currently on pressor agents because of to support him during dialysis we will reassess his ability for endoscopy hopefully in the next several days. (2) Occult blood in stools: Code(s): R19.5 - Other fecal abnormalities Status: Acute Assessment and Plan: Stool Hemoccult positive in the ER. No visible ox VS active blood loss identified this time. Hemoglobin will continue to be monitored closely. (3) Hyperkalemia: Code(s): E87.5 - Hyperkalemia Status: Acute (4) Bradycardia: Code(s): R00.1 - Bradycardia, unspecified Status: Acute Assessment and Plan: Bradycardia assessed by Cardiology service may be related electrolyte disturbance. Will continue to watch closely. Try to defer invasive testing till this is stabilized. (5) End-stage renal disease on hemodialysis: Code(s): N18.6 - End stage renal disease; Z99.2 - Dependence on renal dialysis Status: Chronic (6) Atrial fibrillation: Code(s): I48.91 - Unspecified atrial fibrillation Status: Acute Assessment and Plan: Patient with a history of atrial fibrillation on Eliquis anticoagulation. Given is anemia in its concern for GI blood loss Eliquis will be held until endoscopy can be of performed likely endoscopy on Wednesday once he is stabilized. (7) Insulin dependent diabetes mellitus: Status: Acute GI Consult Note Consult date/time: 05/24/20 14:04 HPI: Rl Gomez is a 64 year old male I am asked to see because of occult blood in stool and anemia. Patient has a history of atrial fibrillation for which she is on Eliquis anticoagulation. He has end-stage renal disease requiring dialysis an underlying history of insulin-dependent diabetes mellitus. He is chronically anemic. The patient developed a fall with some chest pain shortness of breath and for this reason went to the emergency room. In the emergency room he was found to have a mild decrease in his hemoglobin. Stool was identified as being Hemoccult-positive but with no obvious blood identified. His electrolytes were markedly abnormal with elevated potassium. And he was quite bradycardic. Patient denies any abdominal pain. He has had no visible blood loss. No difficulty with diet or intake. Review of Systems Review of Systems: ROS unobtainable: Yes unobtainable due to mental status PMFSH Past Medical History Medical History (Updated 05/24/20 @ 14:08 by Duane Bryan MD) Amputation toe 2nd toe on the right Charcot's joint of foot Chronic anemia Chronic wound of extremity Coronary artery disease End-stage renal disease on hemodialysis Glaucoma Hyperlipidemia Hypertension Insulin dependent diabetes mellitus Ischemic cardiomyopathy Patient reports recent ejection fraction of about 35%. Osteoarthritis Paroxysmal atrial fibrillation Ventricular tachyarrhythmia Surgical History Surgical History (Updated 05/23/20 @ 21:21 by Lizbet Anderson NP) History of bilateral knee arthroplasty History of cardiac catheterization (~2005) With history of stent to the LAD. History of implantable cardioverter-defibril
[2020-05-24] MEDS: CENTRAL LINE FLUSH 10 ML IV PUSH ×3 (14:13→21:20)
--- NOTE | 2020-05-24 15:31 | PM.CNNEP ---
Assessment and Plan Assessment and plan (1) Acute kidney injury: Code(s): N17.9 - Acute kidney failure, unspecified Status: Acute Assessment and Plan: the patient has chronic kidney disease due to diabetes hypertension vascular disease. It is unclear what his baseline creatinine is. He was followed at [facility]. He has recent onset acute kidney injury related to infections. His foot wound and marroquin wound are both incompletely healed but do not seem to be actively infected. It is not clear if his lack of recovery of renal function is something that is going to take longer or if that he just has end-stage kidney disease. Dr. Morgan is following this closely. (2) Anemia: Qualifiers: Anemia type: unspecified type Qualified Code(s): D64.9 - Anemia, unspecified Code(s): D64.9 - Anemia, unspecified Status: Acute Assessment and Plan: The patient has anemia. This is probably related to chronic kidney disease as well as to inflammation related to his wounds. He also has guaiac-positive stools. This is being investigated.Will go ahead and give him Epogen. Because of the possibility of infection will hold off on any iron evaluation. (3) Hyperkalemia: Code(s): E87.5 - Hyperkalemia Status: Acute Assessment and Plan: Potassium was very high. He is noncompliant with his diet. Also it has been 3 days since he had his treatment. He is being dialyzed on a low-potassium Bath. (4) Hyponatremia: Code(s): E87.1 - Hypo-osmolality and hyponatremia Status: Acute Assessment and Plan: Sodium is low because of fluid intake. (5) Atrial fibrillation: Code(s): I48.91 - Unspecified atrial fibrillation Status: Acute Assessment and Plan: His heart rate is well controlled. He was on Eliquis At home, however he has guaiac-positive stool so this is on hold.. (6) Coronary artery disease: Code(s): I25.10 - Atherosclerotic heart disease of [place] coronary artery without angina pectoris Status: Acute Assessment and Plan: No chest pain. (7) Ischemic cardiomyopathy: Code(s): I25.5 - Ischemic cardiomyopathy Status: Acute Assessment and Plan: He has shortness of breath. This may be more related to fluid overload from salt and water intake rather than primarily due to his cardiomyopathy. We discussed the fact that continued fluid overload is difficult for the heart and potentially could make his cardiomyopathy worse. (8) Insulin dependent diabetes mellitus: Status: Acute Assessment and Plan: He is on Accu-Cheks and sliding-scale insulin (9) Hypertension: Code(s): I10 - Essential (primary) hypertension Status: Acute Assessment and Plan: his blood pressure is pretty well controlled. We will be taking fluid off. History of Present Illness Reason for Consult Consult date: 05/24/20 Chief Complaint Chief complaint: GI bleed/anemia/hyperkalemia/hyponatremia/coagulap History of Present Illness Narrative: Rl is a very pleasant 64-year-old gentleman who has multiple medical problems including acute kidney injury on dialysis, ischemic cardiomyopathy, coronary disease, history of cardiac stents, ventricular arrhythmias, AICD insertion but then removal because of infection, diabetes with consequent nephropathy, neuropathy, andCharcot feet, 2nd toe amputation on the right, chronic anemia, chronic wound on 07/09 foot on the right and the marroquin on the left, glaucoma, hypertension. The patient is been going to dialysis at [facility] under the care of Dr. Morgan. He gains lots of weight between treatments and chronically has too much fluid on board. The patient went to dialysis on Wednesday and he was anxious during the treatment. Nursing called Dr. Morgan and he received some Xanax. The patient did okay for the rest of the treatment. Wednesday he felt
--- NOTE | 2020-05-24 15:44 | PM.EVENT ---
Event Note Event Note Event Note: The patient is on dialysis. Tolerating well. He was seen at 2:45 p.m. removing as much fluid as we can.
--- NOTE | 2020-05-24 16:23 | PM.IMPN ---
Progress Note: A&P Assessment and Plan (1) Acute GI bleeding: Code(s): K92.2 - Gastrointestinal hemorrhage, unspecified Status: Acute Assessment and Plan: . Hold anticoagulation at this time. Patient is on Eliquis for atrial fibrillation. the patient had was positive for occult blood but no active bleeding. He was transfused 2 units of packed cells He has had chronic anemia but this is lower than typical. GI has seen and will probably need evaluation later (2) Hyperkalemia: Code(s): E87.5 - Hyperkalemia Status: Acute Assessment and Plan: Patient was due to have dialysis ., But he did not have dialysis because he felt too weak. Patient recently was started on Xanax which could be causing some dizziness. Was given a concoction in the emergency room with the D50, IV insulin, sodium bicarbonate common calcium gluconate. Potassium lower today at dialysis (3) Chronic kidney disease with end stage renal failure on dialysis: Code(s): N18.6 - End stage renal disease; Z99.2 - Dependence on renal dialysis Status: Acute Assessment and Plan: Dialysis resumed today with 4 L removed (4) Paroxysmal atrial fibrillation: Code(s): I48.0 - Paroxysmal atrial fibrillation Status: Acute Assessment and Plan: Patient had been on Coreg and Eliquis. Those are going to be placed on hold at this time. With relative hypotension and bradycardia (5) End-stage renal disease on hemodialysis: Code(s): N18.6 - End stage renal disease; Z99.2 - Dependence on renal dialysis Status: Chronic Assessment and Plan: As above dialysis (6) Hypertension: Code(s): I10 - Essential (primary) hypertension Status: Acute Assessment and Plan: Patient is hypotensive were going to hold his blood pressure medicine at this time which is only low-dose Coreg (7) Hyperlipidemia: Code(s): E78.5 - Hyperlipidemia, unspecified Status: Acute Assessment and Plan: Hold Crestor at this time. (8) Insulin dependent diabetes mellitus: Status: Acute Assessment and Plan: Accu-Cheks AC and HS. (9) Bradycardia: Code(s): R00.1 - Bradycardia, unspecified Status: Acute Assessment and Plan: Patient's heart rates in the 30s and 40s probably secondary to the hyperkalemia because has resolved post dialysis. 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 Patient had AICD in the past but had a pocket infection and had have a removed. (10) Chronic wound of extremity: Status: Chronic Assessment and Plan: Wounds are clean and has been seen by care and they will continue the Dakin's solution. The stated that she washes dakin solution. The patient stated he recently had the right foot debrided there is some minimal eschar tissue but otherwise it looks like there is granulomas tissue in the center. (11) Chronic anemia: Code(s): D64.9 - Anemia, unspecified Status: Acute Assessment and Plan: Patient will be getting 2 units of packed red blood cells at this time. (12) Suspected COVID-19 virus infection: Code(s): Z20.828 - Contact with and (suspected) exposure to other viral communicable diseases Status: Acute Assessment and Plan: Patient has been swabbed and will be placed in isolation, swab results still pending Subjective Date/time seen: 05/24/20 16:23 Interval history: Date of visit 05/24. 64-year-old diabetic with chronic renal failure on dialysis fell yesterday at home and when brought here was lethargic with hyperkalemia, bradycardia, and anemia. Transfuse 2 units of packed cells and dialyzed today with resolution of bradycardia and increase in mental acuity. States feels pretty good right now just hungry Exam Narrative: Exam Narrative: Blood pressure 120/60 pulse is 80 irregular sat 100% on 3 L nasal cannula afebrile Pupils equal reactive light sclera anicteric Lungs
[2020-05-24 16:41] LABS: Hematocrit 25.5 % (42.0-52.0); Hemoglobin 8.4 g/dL (14.0-18.0)
[2020-05-24 17:19] LABS: Glucose Point of Care 107 (65-105)
[2020-05-24 19:24] LABS: SARS-CoV-2 RNA PCR Negative
[2020-05-24 20:48] LABS: Glucose Point of Care 126 (65-105)
[2020-05-24] MEDS: SOD HYPOCHLORITE 1/4 STRENGTH 473 ML 1 APPLIC TOPICAL (21:26)
--- NOTE | 2020-05-24 21:32 | PC.NURSE ---
[id number]- DIALYSIS TREATMENT IN ROOM
[2020-05-25] VITALS (30 sets, daily range): BP systolic 92–152; BP diastolic 42–89; PULSE 57–80; RESP 16–22; TEMP 36.1–37; O2SAT 93–100
[2020-05-25] MEDS: traMADol HCL (*CRX) 50 MG TABLET PO (03:39)
[2020-05-25 04:18] LABS: Basophils Percent Auto 0.5 % (0.2-1.2); Eosinophils Absolute Auto 0.2 K/mm3 (0-0.3); Eosinophils Percent Auto 2.9 % (0-4.4); Hematocrit 22.5 % (42.0-52.0); Hemoglobin 7.2 g/dL (14.0-18.0); Immature Granulocyte Absolute 0.02 K/mm3 (0.00-0.031); Immature Granulocyte Percent A 0.2 % (0-0.5); Lymphocytes Absolute Auto 0.86 K/mm3 (0.9-3.2); Lymphocytes Percent Auto 10.7 % (18.3-44.2); Mean Corpuscular Hemoglobin 25.4 pg (26-34); Mean Corpuscular Volume 79.2 fl (80-100); Mean Platelet Volume 9.4 fl (7.4-10.4); Monocytes Absolute Auto 0.9 K/mm3 (0.1-0.6); Monocytes Percent Auto 11.3 % (2.6-8.5); Neutrophils Percent Auto 74.4 % (45.5-73.1); Nucleated Red Blood Cells Perc 0.5 % (0.0-0.2); Platelet Count Result 233 k/mm3 (150-375); Red Blood Count 2.84 M/mm3 (4.6-6.20); Red Cell Distribution Width 18.9 % (11.5-14.5)
[2020-05-25 04:28] LABS: Potassium 4.8 mmol/L (3.4-5.0)
[2020-05-25 04:37] LABS: Alanine Aminotransferase 17 U/L (4-50); Albumin Level 3.4 g/dL (3.5-5.1); Alkaline Phosphatase 105 U/L (38-126); Anion Gap 12 mmol/L (8-16); Aspartate Amino Transferase 26 U/L (17-59); Bilirubin,Total 1.5 mg/dL (0.2-1.3); Blood Urea Nitrogen 57 mg/dL (9-20); Calcium 7.6 mg/dL (8.4-10.2); Carbon Dioxide 29 mmol/L (22-30); Chloride 96 mmol/L (98-107); Estimated CRCL calculation 29 ml/min; Estimated Glomerular Filt Rate 20; Glucose 177 mg/dL (75-110); Magnesium 2.2 mg/dL (1.6-2.3); Phosphorus 5.3 mg/dL (2.5-4.5); Sodium 137 mmol/L (137-145)
[2020-05-25] MEDS: CENTRAL LINE FLUSH 10 ML IV PUSH ×2 (06:35→13:26)
--- NOTE | 2020-05-25 07:38 | P.PNINT_ITS ---
Progress Note: A&P Assessment and Plan (1) Hyperkalemia: Code(s): E87.5 - Hyperkalemia Status: Acute Assessment and Plan: * Due to CKD, resolved after dialysis * OK to downgrade from ICU status (2) Bradycardia: Code(s): R00.1 - Bradycardia, unspecified Status: Acute Assessment and Plan: * Likely due to hyperkalemia * Resolved after dialysis * Continue to hold carvedilol (3) Acute kidney injury: Code(s): N17.9 - Acute kidney failure, unspecified Status: Acute Assessment and Plan: * Recent decline in renal function and initiation of dialysis due to infection * Continue dialysis per nephrology recommendations * 05/25 100 ml UO overnight, 4000 ml removed with dialysis (4) Chronic wound of extremity: Status: Chronic Assessment and Plan: * Continue wound care * No evidence for infection (5) Charcot's joint of foot: Qualifiers: Laterality: right Qualified Code(s): M14.671 - Charcot's joint, right ankle and foot Code(s): M14.679 - Charcot's joint, unspecified ankle and foot Status: Chronic Assessment and Plan: * stable (6) Atypical chest pain: Code(s): R07.89 - Other chest pain Status: Acute Assessment and Plan: * Musculoskeletal * PRN acetaminophen (7) Anemia: Qualifiers: Anemia type: unspecified type Qualified Code(s): D64.9 - Anemia, unspecified Code(s): D64.9 - Anemia, unspecified Status: Acute Assessment and Plan: * Received 2 U PRBC on admission for Hgb 6.2. Increased to 8.4 post transfusion * 05/24 Hgb 7.2 * Continue to monitor and transfuse to maintain hgb 7 or above (8) Coagulopathy: Code(s): D68.9 - Coagulation defect, unspecified Status: Acute Assessment and Plan: * Eliquis on hold (9) Hyponatremia: Code(s): E87.1 - Hypo-osmolality and hyponatremia Status: Acute Assessment and Plan: * Resolved (10) Chronic kidney disease with end stage renal failure on dialysis: Code(s): N18.6 - End stage renal disease; Z99.2 - Dependence on renal dialysis Status: Acute (11) Atrial fibrillation: Qualifiers: Atrial fibrillation type: unspecified chronic Qualified Code(s): I48.20 - Chronic atrial fibrillation, unspecified Code(s): I48.91 - Unspecified atrial fibrillation Status: Acute Assessment and Plan: * Rate 60s 05/25 (12) Coronary artery disease: Qualifiers: Associated angina: without angina Coronary Disease-Associated Artery/Lesion type: [place] artery [place] vs. transplanted heart: [place] heart Qualified Code(s): I25.10 - Atherosclerotic heart disease of [place] coronary artery without angina pectoris Code(s): I25.10 - Atherosclerotic heart disease of [place] coronary artery without angina pectoris Status: Acute (13) Ischemic cardiomyopathy: Code(s): I25.5 - Ischemic cardiomyopathy Status: Acute (14) Insulin dependent diabetes mellitus: Status: Acute Assessment and Plan: * FBS 170 05/25 * Control adequate (15) Hypertension: Qualifiers: Hypertension type: unspecified Qualified Code(s): I10 - Essential (primary) hypertension Code(s): I10 - Essential (primary) hypertension Status: Acute Subjective Date/time seen: 05/25/20 07:38 Interval history: Admitted 05/24 with confusion, bradycardia. K was 6.2. Received dopamine 2mcg until dialysis. Now off dopamine. B
--- NOTE | 2020-05-25 07:38 | WPDINTPN ---
Progress Note: A&P Assessment and Plan (1) Hyperkalemia: Code(s): E87.5 - Hyperkalemia Status: Acute Assessment and Plan: Due to CKD, resolved after dialysis OK to downgrade from ICU status (2) Bradycardia: Code(s): R00.1 - Bradycardia, unspecified Status: Acute Assessment and Plan: Likely due to hyperkalemia Resolved after dialysis Continue to hold carvedilol (3) Acute kidney injury: Code(s): N17.9 - Acute kidney failure, unspecified Status: Acute Assessment and Plan: Recent decline in renal function and initiation of dialysis due to infection Continue dialysis per nephrology recommendations 05/25 100 ml UO overnight, 4000 ml removed with dialysis (4) Chronic wound of extremity: Status: Chronic Assessment and Plan: Continue wound care No evidence for infection (5) Charcot's joint of foot: Qualifiers: Laterality: right Qualified Code(s): M14.671 - Charcot's joint, right ankle and foot Code(s): M14.679 - Charcot's joint, unspecified ankle and foot Status: Chronic Assessment and Plan: stable (6) Atypical chest pain: Code(s): R07.89 - Other chest pain Status: Acute Assessment and Plan: Musculoskeletal PRN acetaminophen (7) Anemia: Qualifiers: Anemia type: unspecified type Qualified Code(s): D64.9 - Anemia, unspecified Code(s): D64.9 - Anemia, unspecified Status: Acute Assessment and Plan: Received 2 U PRBC on admission for Hgb 6.2. Increased to 8.4 post transfusion 05/24 Hgb 7.2 Continue to monitor and transfuse to maintain hgb 7 or above (8) Coagulopathy: Code(s): D68.9 - Coagulation defect, unspecified Status: Acute Assessment and Plan: Eliquis on hold (9) Hyponatremia: Code(s): E87.1 - Hypo-osmolality and hyponatremia Status: Acute Assessment and Plan: Resolved (10) Chronic kidney disease with end stage renal failure on dialysis: Code(s): N18.6 - End stage renal disease; Z99.2 - Dependence on renal dialysis Status: Acute (11) Atrial fibrillation: Qualifiers: Atrial fibrillation type: unspecified chronic Qualified Code(s): I48.20 - Chronic atrial fibrillation, unspecified Code(s): I48.91 - Unspecified atrial fibrillation Status: Acute Assessment and Plan: Rate 60s 05/25 (12) Coronary artery disease: Qualifiers: Associated angina: without angina Coronary Disease-Associated Artery/Lesion type: [place] artery [place] vs. transplanted heart: [place] heart Qualified Code(s): I25.10 - Atherosclerotic heart disease of [place] coronary artery without angina pectoris Code(s): I25.10 - Atherosclerotic heart disease of [place] coronary artery without angina pectoris Status: Acute (13) Ischemic cardiomyopathy: Code(s): I25.5 - Ischemic cardiomyopathy Status: Acute (14) Insulin dependent diabetes mellitus: Status: Acute Assessment and Plan: FBS 170 05/25 Control adequate (15) Hypertension: Qualifiers: Hypertension type: unspecified Qualified Code(s): I10 - Essential (primary) hypertension Code(s): I10 - Essential (primary) hypertension Status: Acute Subjective Date/time seen: 05/25/20 07:38 Interval history: Admitted 05/24 with confusion, bradycardia. K was 6.2. Received dopamine 2mcg until dialysis. Now off dopamine. Bilateral rib pain with movement. Fell at home. Sore since fall. Received Tramadol 50mg PO x 1 last night with some relief. FBS at home was running 100-120. Chronic left marroquin and right foot wound related to lymphedema and Charcot foot. Tolerated supper. No BM yet. Review of Systems Review of Systems: All systems reviewed & are unremarkable except as noted in HPI and below Exam Narrative: Exam Narrative: HEENT: PERRL, sclerae nonicteric, pharyngeal mucosa
--- NOTE | 2020-05-25 08:15 | WPDGIPROGNO ---
Progress Note: A&P Assessment and Plan (1) Occult blood in stools: Code(s): R19.5 - Other fecal abnormalities Status: Acute Assessment and Plan: Occult blood in stool identified in the ER. Has not been evident on the floor. No obvious bleeding noted. Patient reports no bowel movement for several days. Plan is to recheck stool Hemoccult. Consider GI evaluation and with endoscopy this can be performed electively as an outpatient. Patient has chronic anemia attributed to his kidney disease. Only slight decline at the time of admission may be related to fluid overload. (2) Chronic anemia: Code(s): D64.9 - Anemia, unspecified Status: Acute Assessment and Plan: Patient has chronic anemia period was slightly depressed at the time of presentation. This was associated with fluid overload and electrolyte imbalance. [place] this has been corrected after transfusion. As stated stool Hemoccult was positive. Consider GI endoscopy this can be performed electively as an outpatient. (3) Insulin dependent diabetes mellitus: Status: Acute (4) End-stage renal disease on hemodialysis: Code(s): N18.6 - End stage renal disease; Z99.2 - Dependence on renal dialysis Status: Chronic (5) Atrial fibrillation: Qualifiers: Atrial fibrillation type: unspecified chronic Qualified Code(s): I48.20 - Chronic atrial fibrillation, unspecified Code(s): I48.91 - Unspecified atrial fibrillation Status: Acute (6) Coagulopathy: Code(s): D68.9 - Coagulation defect, unspecified Status: Acute Subjective Date/time seen: 05/25/20 08:15 Patient much more alert today after dialysis. He is seen no obvious blood in his stools. Reports no bowel movement for several days. Review of Systems Review of Systems: All systems reviewed & are unremarkable except as noted in HPI and below Exam Narrative: Exam Narrative: On physical exam patient is alert comfortable at rest he is oriented x3 this morning. He is anicteric. Lungs are clear. Heart without murmur. Abdomen is obese. Bowel sounds present soft nontender rectal reveals no lesions. No stools obtained. Objective Data Vital Signs Vital Signs: Vital Signs - 24 hr 05/24/20 08:22 05/24/20 08:30 05/24/20 09:00 Temperature Pulse Rate 42 L 42 L 49 L Respiratory Rate 22 H 22 H Blood Pressure 108/68 98/58 L 121/58 L Pulse Oximetry 100 100 05/24/20 09:38 05/24/20 09:57 05/24/20 10:00 Temperature Pulse Rate 50 L 56 L 52 L Respiratory Rate 22 H 20 22 H Blood Pressure 118/55 L 123/53 L Pulse Oximetry 100 100 05/24/20 10:43 05/24/20 11:00 05/24/20 12:00 Temperature 97.2 F L Pulse Rate 67 52 L 50 L Respiratory Rate 22 H 22 H 22 H Blood Pressure 126/77 145/76 H 100/51 L Pulse Oximetry 100 95 100 05/24/20 12:06 05/24/20 12:16 05/24/20 12:30 Temperature 97.6 F Pulse Rate 49 L 42 L 52 L Respiratory Rate 24 H 16 Blood Pressure 105/54 L 100/52 L 110/53 L Pulse Oximetry 100 100 05/24/20 12:45 05/24/20 13:00 05/24/20 13:15 Temperature Pulse Rate 70 71 79 Respiratory Rate Blood Pressure 113/59 L 113/53 L 104/57 L Pulse Oximetry 05/24/20 13:30 05/24/20 13:45 05/24/20 14:00 Temperature Pulse Rate 76 78 79 Respiratory Rate Blood Pressure 113/55 L 116/63 113/59 L Pulse Oximetry 05/24/20 14:15 05/24/20 14:30 05/24/20 14:45 Temperature Pulse Rate 77 82 86 Respiratory Rate Blood Pressure 118/61 113/59 L 112/61 Pulse Oximetry 05/24/20 15:00 05/24/20 15:15 05/24/20 15:30 Temperature Pulse Rate 90 88 83 Respiratory Rate Blood Pressure 108/61 120/61 147/51 H Pulse Oximetry 05/24/20 15:47 05/24/20 15:57 05/24/20 16:00 Temperature 98 F Pulse Rate 90 90 88 Respiratory Rate 20 Blood Pressure 101/58 L 119/62 Pulse Oximetry 100 100 05/24/20 17:00 05/24/20 18:00 05/24/20 20:00 Temperature 97.5 F L Pulse Rate 79 79 80 Respira
[2020-05-25 08:25] LABS: Glucose Point of Care 149 (65-105)
[2020-05-25] MEDS: ALPRAZolam (*CRX) 0.25 MG TABLET PO (09:00)
--- NOTE | 2020-05-25 09:13 | PM.PNCARD ---
Progress Note: A&P Additional Plan 64-year-old gentleman with AFib, slow ventricular response, junctional escape rhythm in the setting of hyperkalemia. This was resolved with dialysis. No further cardiac intervention of this is necessary. As this gentleman receives his cardiology care at [facility] I will not anticipate continued continuing to follow him during this hospital stay. If you need my services any further please let me know Barrington Lock MD [facility] Subjective Date/time seen: Date of service: 05/25/20 09:13 Interval history: Follow-up visit in this 64-year-old man with: History of coronary artery disease history of chronic atrial fibrillation and right bundle branch block. Consulted to see him yesterday because of Jacinto arrhythmias. Patient had a junctional escape rhythm with a heart rate in the 40s because of hyperkalemia. Following dialysis and correction of his potassium that has resolved. Exam Const: General: comfortable and no acute distress Other: Obese chronically ill-appearing patient no distress HENMT: Mouth: Yes moist mucous membranes Eyes: Sclera: sclerae normal Pupils: Equal, round and reactive pupils present Neck: Neck: supple and no JVD Resp: Effort & Inspection: normal respiratory effort Cardio: Rhythm: abnormal rhythm irregularly irregular GI: GI Palp: Yes Soft to palpation Auscultation: normal bowel sounds Extrem: Other: Chronic lower extremity edema Objective Data Vital Signs Vital Signs: Vital Signs - 24 hr 05/24/20 09:38 05/24/20 09:57 05/24/20 10:00 Temperature Pulse Rate 50 L 56 L 52 L Respiratory Rate 22 H 20 22 H Blood Pressure 118/55 L 123/53 L Pulse Oximetry 100 100 05/24/20 10:43 05/24/20 11:00 05/24/20 12:00 Temperature 36.2 C L Pulse Rate 67 52 L 50 L Respiratory Rate 22 H 22 H 22 H Blood Pressure 126/77 145/76 H 100/51 L Pulse Oximetry 100 95 100 05/24/20 12:06 05/24/20 12:16 05/24/20 12:30 Temperature 36.4 C Pulse Rate 49 L 42 L 52 L Respiratory Rate 24 H 16 Blood Pressure 105/54 L 100/52 L 110/53 L Pulse Oximetry 100 100 05/24/20 12:45 05/24/20 13:00 05/24/20 13:15 Temperature Pulse Rate 70 71 79 Respiratory Rate Blood Pressure 113/59 L 113/53 L 104/57 L Pulse Oximetry 05/24/20 13:30 05/24/20 13:45 05/24/20 14:00 Temperature Pulse Rate 76 78 79 Respiratory Rate Blood Pressure 113/55 L 116/63 113/59 L Pulse Oximetry 05/24/20 14:15 05/24/20 14:30 05/24/20 14:45 Temperature Pulse Rate 77 82 86 Respiratory Rate Blood Pressure 118/61 113/59 L 112/61 Pulse Oximetry 05/24/20 15:00 05/24/20 15:15 05/24/20 15:30 Temperature Pulse Rate 90 88 83 Respiratory Rate Blood Pressure 108/61 120/61 147/51 H Pulse Oximetry 05/24/20 15:47 05/24/20 15:57 05/24/20 16:00 Temperature 36.6 C Pulse Rate 90 90 88 Respiratory Rate 20 Blood Pressure 101/58 L 119/62 Pulse Oximetry 100 100 05/24/20 17:00 05/24/20 18:00 05/24/20 20:00 Temperature 36.4 C L Pulse Rate 79 79 80 Respiratory Rate 60 H 20 16 Blood Pressure 118/50 L 115/65 109/58 L Pulse Oximetry 100 100 100 05/24/20 22:00 05/25/20 00:00 05/25/20 02:00 Temperature 36.3 C L Pulse Rate 73 80 73 Respiratory Rate 16 Blood Pressure 107/54 L 92/49 L 111/89 Pulse Oximetry 98 05/25/20 04:00 05/25/20 06:00 05/25/20 08:00 Temperature 36.5 C 36.3 C L Pulse Rate 69 68 61 Respiratory Rate 16 16 18 Blood Pressure 103/52 L 102/58 L 111/69 Pulse Oximetry 98 100 100 Intake/Output Intake/Output: Intake & Output 05/22/20 05/23/20 05/24/20 05/25/20 23:59 23:59 23:59 23:59 Intake Total 1050 1115 Output Total 4000 100 Balance 1050 -2885 -100 Meds/Results Medications: Active Medications Generic Name Dose Route Start Last Admin Trade Name Freq PRN Reason Stop Dose Admin Acetaminophen 1,000 mg 05/25/20 07:54 Acetaminophen 500 Mg Tablet PO Q6H PRN Mild to Moderate
--- NOTE | 2020-05-25 09:27 | PCPTNOTE ---
Unable to provide treatment this morning due to pt in dialysis until this afternoon.
--- NOTE | 2020-05-25 09:29 | PCOTNOTE ---
OT evaluation attempted. Patient in dialysis. Will attempt OT evaluation at later time.
--- NOTE | 2020-05-25 11:17 | PM.PNNEP ---
Progress Note: A&P Assessment and Plan (1) Acute kidney injury: Code(s): N17.9 - Acute kidney failure, unspecified Status: Acute Assessment and Plan: the patient has chronic kidney disease due to diabetes hypertension vascular disease. He had acute on chronic kidney disease at [facility]. He does not seem to be opening up. He probably had significant chronic disease before the and because of his huge weight gains and trouble with fluid overload his chances of recovery are low. (2) Anemia: Qualifiers: Anemia type: unspecified type Qualified Code(s): D64.9 - Anemia, unspecified Code(s): D64.9 - Anemia, unspecified Status: Acute Assessment and Plan: The patient has anemia. This is multifactorial, related to CKD, it and also guaiac-positive stools. Hemoglobin dropped a little bit from 8.4-7.2 today. Will recheck again tomorrow. (3) Hyperkalemia: Code(s): E87.5 - Hyperkalemia Status: Acute Assessment and Plan: Potassium is better (4) Hyponatremia: Code(s): E87.1 - Hypo-osmolality and hyponatremia Status: Acute Assessment and Plan: Resolved (5) Atrial fibrillation: Qualifiers: Atrial fibrillation type: unspecified chronic Qualified Code(s): I48.20 - Chronic atrial fibrillation, unspecified Code(s): I48.91 - Unspecified atrial fibrillation Status: Acute Assessment and Plan: His heart rate is well controlled. He was on Eliquis At home, however he has guaiac-positive stool so this is on hold.. (6) Coronary artery disease: Qualifiers: Coronary Disease-Associated Artery/Lesion type: [place] artery [place] vs. transplanted heart: [place] heart Associated angina: without angina Qualified Code(s): I25.10 - Atherosclerotic heart disease of [place] coronary artery without angina pectoris Code(s): I25.10 - Atherosclerotic heart disease of [place] coronary artery without angina pectoris Status: Acute Assessment and Plan: No chest pain. (7) Ischemic cardiomyopathy: Code(s): I25.5 - Ischemic cardiomyopathy Status: Acute Assessment and Plan: Breathing is better (8) Insulin dependent diabetes mellitus: Status: Acute Assessment and Plan: He is on Accu-Cheks and sliding-scale insulin (9) Hypertension: Qualifiers: Hypertension type: unspecified Qualified Code(s): I10 - Essential (primary) hypertension Code(s): I10 - Essential (primary) hypertension Status: Acute Assessment and Plan: his blood pressure is pretty well controlled. We will be taking fluid off. Subjective Date/time seen: 05/25/20 11:17 Interval history: Rl is on dialysis and tolerating it well. We are removing another 4L of fluid. He looks better overall. Earlier on he had refused his dialysis but then changed his mind after he woke up a little bit. Review of Systems Cardiovascular: Cardiovascular: Reports no additional cardiovascular complaints Respiratory: Respiratory: Reports no additional respiratory complaints Gastrointestinal: Gastrointestinal: Reports no additional gastrointestinal complaints Genitourinary: Genitourinary: Reports no additional male genitourinary complaints Exam Narrative: Exam Narrative: WDWN in NAD skin no rash but he has mae cheeks head ncat lungs clear cor reg no rub abd BS+ nontender and soft ext 2+ edema. Objective Data Vital Signs Vital Signs: Vital Signs - 24 hr 05/24/20 12:00 05/24/20 12:06 05/24/20 12:16 Temperature 36.2 C L 36.4 C Pulse Rate 50 L 49 L 42 L Respiratory Rate 22 H 24 H Blood Pressure 100/51 L 105/54 L 100/52 L Pulse Oximetry 100 100 05/24/20 12:30 05/24/20 12:45 05/24/20 13:00 Temperature Pulse Rate 52 L 70 71 Respiratory Rate 16 Blood Pressure 110/53 L 113/59 L 113/53 L Pulse Oximetry 100 05/24/20 13:15 05/24/20 13:30
[2020-05-25] MEDS: EPOETIN ALFA-EPBX 10,000 UNITS/ML VIAL 10000 UNITS IV PUSH (11:52)
--- NOTE | 2020-05-25 12:54 | PM.IMPN ---
Progress Note: A&P Assessment and Plan (1) Acute GI bleeding: Code(s): K92.2 - Gastrointestinal hemorrhage, unspecified Status: Acute Assessment and Plan: . Hold anticoagulation at this time. Patient is on Eliquis for atrial fibrillation. the patient had was positive for occult blood but no active bleeding. He was transfused 2 units of packed cells He has had chronic anemia but this is lower than typical. GI has seen and will probably need evaluation later hgb 7.2 this am and will follow (2) Hyperkalemia: Code(s): E87.5 - Hyperkalemia Status: Acute Assessment and Plan: Patient was due to have dialysis ., But he did not have dialysis because he felt too weak. Patient recently was started on Xanax which could be causing some dizziness. Potassium lower today 4.8 after yesterday dialysis (3) Chronic kidney disease with end stage renal failure on dialysis: Code(s): N18.6 - End stage renal disease; Z99.2 - Dependence on renal dialysis Status: Acute Assessment and Plan: Dialysis resumed 05/24 with 4 L removed, repeat session today to get back to his e,Thur,Sat schedule (4) Paroxysmal atrial fibrillation: Code(s): I48.0 - Paroxysmal atrial fibrillation Status: Acute Assessment and Plan: Patient had been on Coreg and Eliquis. on hold + stool and initial bradycardia (5) End-stage renal disease on hemodialysis: Code(s): N18.6 - End stage renal disease; Z99.2 - Dependence on renal dialysis Status: Chronic Assessment and Plan: As above dialysis (6) Hypertension: Qualifiers: Hypertension type: unspecified Qualified Code(s): I10 - Essential (primary) hypertension Code(s): I10 - Essential (primary) hypertension Status: Acute Assessment and Plan: Patient is hypotensive were going to hold his blood pressure medicine at this time which is only low-dose Coreg (7) Hyperlipidemia: Code(s): E78.5 - Hyperlipidemia, unspecified Status: Acute Assessment and Plan: restart Crestor at this time. (8) Insulin dependent diabetes mellitus: Status: Acute Assessment and Plan: Accu-Cheks AC and HS. (9) Bradycardia: Code(s): R00.1 - Bradycardia, unspecified Status: Acute Assessment and Plan: Patient's heart rates in the 30s and 40s probably secondary to the hyperkalemia because has resolved post dialysis. 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 Patient had AICD in the past but had a pocket infection and had have a removed. (10) Chronic wound of extremity: Status: Chronic Assessment and Plan: Wounds are clean and has been seen by care and they will continue the Dakin's solution. The stated that she washes dakin solution. The patient stated he recently had the right foot debrided there is some minimal eschar tissue but otherwise it looks like there is granulomas tissue in the center. (11) Chronic anemia: Code(s): D64.9 - Anemia, unspecified Status: Acute Assessment and Plan: Patient received 2 units of packed red blood cells so far and will recheck hgb am. (12) Suspected COVID-19 virus infection: Code(s): Z20.828 - Contact with and (suspected) exposure to other viral communicable diseases Status: Acute Assessment and Plan: Patient has been swabbed and will be placed in isolation, swab results negative Subjective Date/time seen: 05/25/20 12:54 Interval history: Date of visit 05/25. 64-year-old diabetic with chronic renal failure on dialysis fell 05/23 at home and when brought here was lethargic with hyperkalemia, bradycardia, and anemia. Transfuse 2 units of packed cells and dialyzed 05/24 with resolution of bradycardia and increase in mental acuity. States feels pretty good this am Exam Narrative: Exam Narrative: Blood pressure 130/54 pulse is 78 irregular sat 100% on RA afebrile 4000ml off at di
[2020-05-25] MEDS: BRIMONIDINE TARTRATE 0.2% OP SOLN 5 ML BTL 1 DROP EACH EYE (13:24)
[2020-05-25] MEDS: SERTRALINE HCL 50 MG TABLET 100 MG PO (13:25)
[2020-05-25] MEDS: DULoxetine HCL 60 MG CAPSULE.DR PO (13:25)
[2020-05-25] MEDS: allopurinoL 100 MG TABLET PO (13:25)
[2020-05-25] MEDS: ROSUVASTATIN 10 MG TABLET PO (13:25)
[2020-05-25] MEDS: PANTOPRAZOLE SODIUM IV 40 MG VIAL IV PUSH ×2 (13:25→20:48)
[2020-05-25] MEDS: GABAPENTIN 300 MG CAPSULE PO ×2 (13:25→17:29)
[2020-05-25] MEDS: DORZOLAMIDE/TIMOLOL OPHTH SOL 10 ML BOTTLE 1 DROP EACH EYE (13:25)
[2020-05-25] MEDS: polyethylene glycoL 3350 17 GM POWD.PACK 51 GM PO (13:27)
[2020-05-25] MEDS: BISACODYL 5 MG TABLET EC 10 MG PO (13:27)
[2020-05-25 13:31] LABS: Glucose Point of Care 157 (65-105)
[2020-05-25] MEDS: NEOMYCIN/POLYMYXIN/BACITRACIN OINTMENT PACKET 1 PACKET TOPICAL (13:31)
--- NOTE | 2020-05-25 14:44 | PC.NURSE ---
This patient, Rl Gomez, was transferred to [address] [place] [address] on 05/25/20 at 1444. Personal belongings sent with patient. Report given to KYLER Alex. Appropriate documentation sent with patient.
[2020-05-25] MEDS: ONDANSETRON INJ 4 MG/2 ML VIAL IV PUSH ×2 (16:52→22:27)
[2020-05-25 17:12] LABS: Glucose Point of Care 223 (65-105)
[2020-05-25] MEDS: INSULIN ASPART (*BKC) 100 UNITS/ML SUB-Q (17:24)
[2020-05-25] MEDS: SOD HYPOCHLORITE 1/4 STRENGTH 473 ML 1 APPLIC TOPICAL (20:48)
--- NOTE | 2020-05-25 23:40 | ECG_ITS ---
Measurements Intervals [place] Rate: 70 P: 133 AR: 64 QRS: -83 QRSD: 119 T: 110 QT: 421 QTc: 456 Interpretive Statements ECTOPIC ATRIAL RHYTHM RIGHT BUNDLE BRANCH BLOCK LOW QRS VOLTAGE IN PRECORDIAL LEADS BASELINE ARTIFACT- V2 ABNORMAL ECG Electronically Signed On 05-26-2020 8:32:46 SHOCK ABSORPTION FLOOR LAYER by Jaiden Munoz D.O.
--- NOTE | 2020-05-25 23:42 | PM.EVENT ---
Event Note Event Note Event Note: A rapid response was called. The patient was found on the floor unresponsive. The patient had been sitting in the chair but is now found on the floor with his head up against a wall. Patient had dressings all over the floor as well from his wounds on his feet. The patient initially would not wake up to sternal rub. Patient's O2 saturations was noted to be around 77%. Patient appeared to have agonal breathing. Supplemental oxygen was given with Ambu bag. Patient was assisted with the Ambu bag for a few breaths. The patient then started talking talking through the Ambu bag. Patient was then awake and was telling is that his name was Mr. Gomez as I had been calling him Mr. Wiley. He informed me that his name is not Mr. Wiley is Mr. Gomez. Patient does not recall the events that occurred that led the patient to fall and the on the floor. Patient has nodule noted to the occipital area. The patient had been on Eliquis recently and developed a GI bleed. The patient was here due to low heart rate. It was noted that the low heart rate was most likely due to the hyperkalemia. Patient did have dialysis yesterday and his potassium did come back down to normal. Patient is now awake and talking. His heart rate appears to be in the 70s. His oxygen level did come back to 100. The patient is awake and talking now. We are ordering an EKG ABGs CBC CMP troponin. Awaiting results. I will discuss the case with Dr. molina. The patient remains a full code. Patient's blood sugar was noted to be in the 100s. He dove his receive insulin and the patient is not complaining pain at this time.
[2020-05-25 23:43] LABS: Glucose Point of Care 153 (65-105)
[2020-05-25 23:44] LABS: Glucose Point of Care 162 (65-105)
[2020-05-25 23:46] LABS: Base Excess ABG 1.2 mEq/l (+/-2.0); Fractional Inspired Oxygen 38 %; HCO3 ABG 26.5 mEq/l (22.0-26.0); Oxygen Content ABG 12.6 %vol (16.0-22.0); Oxygen Saturation ABG 98.6 % (95.0-100.0); Oxyhemoglobin 97.6 % THb (90.0-100.0); PCO2 ABG 45.5 mmHg (35.0-45.0); PO2 ABG 134.4 mmHg (80.0-100.0); PO2 FiO2 Ratio Arterial Blood 3.54 %; pH ABG 7.383 (7.350-7.450)
[2020-05-25 23:48] LABS: Device NASAL CANNULA; Liters per Minute 4.5 LPM; Modified Allen's Test Pass; Site Drawn RIGHT RADIAL
[2020-05-26] VITALS (9 sets, daily range): BP systolic 110–177; BP diastolic 53–96; PULSE 47–75; RESP 16–24; TEMP 36.1–36.4; O2SAT 99–100
[2020-05-26 00:12] LABS: INR 1.8; Prothrombin Time 21.3 Seconds (11.1-14.7)
[2020-05-26 00:18] LABS: Basophils Percent Auto 0.2 % (0.2-1.2); Eosinophils Absolute Auto 0.1 K/mm3 (0-0.3); Eosinophils Percent Auto 1.2 % (0-4.4); Hematocrit 25.8 % (42.0-52.0); Hemoglobin 7.9 g/dL (14.0-18.0); Immature Granulocyte Absolute 0.07 K/mm3 (0.00-0.031); Immature Granulocyte Percent A 0.9 % (0-0.5); Lymphocytes Absolute Auto 0.63 K/mm3 (0.9-3.2); Lymphocytes Percent Auto 7.7 % (18.3-44.2); Mean Corpuscular HGB Conc 30.6 g/dl (32-36); Mean Corpuscular Hemoglobin 25.3 pg (26-34); Mean Corpuscular Volume 82.7 fl (80-100); Mean Platelet Volume 10.5 fl (7.4-10.4); Monocytes Absolute Auto 0.7 K/mm3 (0.1-0.6); Monocytes Percent Auto 8.9 % (2.6-8.5); Neutrophils Absolute Auto 6.7 K/mm3 (1.3-6.7); Neutrophils Percent Auto 81.1 % (45.5-73.1); Nucleated Red Blood Cells Perc 0.4 % (0.0-0.2); Platelet Count Result 242 k/mm3 (150-375); Red Blood Count 3.12 M/mm3 (4.6-6.20); Red Cell Distribution Width 19.4 % (11.5-14.5); White Blood Count 8.2 K/mm3 (4.5-10.0)
[2020-05-26 00:21] LABS: Alanine Aminotransferase 18 U/L (4-50); Albumin Level 3.9 g/dL (3.5-5.1); Alkaline Phosphatase 118 U/L (38-126); Anion Gap 9 mmol/L (8-16); Aspartate Amino Transferase 27 U/L (17-59); Bilirubin,Total 1.3 mg/dL (0.2-1.3); Blood Urea Nitrogen 39 mg/dL (9-20); Carbon Dioxide 32 mmol/L (22-30); Chloride 95 mmol/L (98-107); Estimated CRCL calculation 36 ml/min; Estimated Glomerular Filt Rate 26; Glucose 171 mg/dL (75-110); Magnesium 2.1 mg/dL (1.6-2.3); Potassium 4.9 mmol/L (3.4-5.0); Sodium 136 mmol/L (137-145)
[2020-05-26 00:25] LABS: Troponin I 0.016 ng/mL (0.000-0.034)
[2020-05-26] MEDS: ALPRAZolam (*CRX) 0.25 MG TABLET PO (01:59)
[2020-05-26 03:15] LABS: Basophils Percent Auto 0.2 % (0.2-1.2); Eosinophils Absolute Auto 0.1 K/mm3 (0-0.3); Eosinophils Percent Auto 0.6 % (0-4.4); Hematocrit 25.1 % (42.0-52.0); Hemoglobin 7.8 g/dL (14.0-18.0); Immature Granulocyte Absolute 0.05 K/mm3 (0.00-0.031); Immature Granulocyte Percent A 0.6 % (0-0.5); Lymphocytes Percent Auto 8.4 % (18.3-44.2); Mean Corpuscular HGB Conc 31.1 g/dl (32-36); Mean Corpuscular Hemoglobin 25.6 pg (26-34); Mean Corpuscular Volume 82.3 fl (80-100); Monocytes Absolute Auto 0.9 K/mm3 (0.1-0.6); Monocytes Percent Auto 10.6 % (2.6-8.5); Neutrophils Absolute Auto 6.6 K/mm3 (1.3-6.7); Neutrophils Percent Auto 79.6 % (45.5-73.1); Nucleated Red Blood Cells Perc 0.2 % (0.0-0.2); Platelet Count Result 232 k/mm3 (150-375); Red Blood Count 3.05 M/mm3 (4.6-6.20); Red Cell Distribution Width 19.4 % (11.5-14.5); White Blood Count 8.3 K/mm3 (4.5-10.0)
[2020-05-26] MEDS: ACETAMINOPHEN 500 MG TABLET 1000 MG PO ×2 (03:24→09:17)
[2020-05-26 03:56] LABS: Anion Gap 10 mmol/L (8-16); Blood Urea Nitrogen 41 mg/dL (9-20); Calcium 8.1 mg/dL (8.4-10.2); Carbon Dioxide 33 mmol/L (22-30); Chloride 94 mmol/L (98-107); Estimated CRCL calculation 33 ml/min; Estimated Glomerular Filt Rate 24; Glucose 145 mg/dL (75-110); Potassium 4.8 mmol/L (3.4-5.0); Sodium 137 mmol/L (137-145)
[2020-05-26 04:07] LABS: Troponin I 0.026 ng/mL (0.000-0.034)
[2020-05-26 06:47] LABS: Troponin I 0.028 ng/mL (0.000-0.034)
[2020-05-26 08:08] LABS: Glucose Point of Care 136 (65-105)
[2020-05-26] MEDS: DULoxetine HCL 60 MG CAPSULE.DR PO (09:18)
[2020-05-26] MEDS: allopurinoL 100 MG TABLET PO (09:18)
[2020-05-26] MEDS: BRIMONIDINE TARTRATE 0.2% OP SOLN 5 ML BTL 1 DROP EACH EYE ×2 (09:18→17:32)
[2020-05-26] MEDS: ROSUVASTATIN 10 MG TABLET PO (09:18)
[2020-05-26] MEDS: GABAPENTIN 300 MG CAPSULE PO ×2 (09:18→17:31)
[2020-05-26] MEDS: DORZOLAMIDE/TIMOLOL OPHTH SOL 10 ML BOTTLE 1 DROP EACH EYE (09:18)
[2020-05-26] MEDS: SERTRALINE HCL 50 MG TABLET 100 MG PO (09:18)
--- NOTE | 2020-05-26 09:31 | WPDGIPROGNO ---
Progress Note: A&P Assessment and Plan (1) Occult blood in stools: Code(s): R19.5 - Other fecal abnormalities Status: Acute Assessment and Plan: Occult blood in stool identified on presentation. He did have a slight decline of hemoglobin from his chronic baseline anemia. No active bleeding has been identified. Plan is for elective evaluation of the GI tract. Although prefer to defer until is general overall condition is more stable. Patient had syncopal episode this morning. Was quite obtunded and encephalopathic on presentation. Some of the symptoms improved after initial dialysis. (2) Atrial fibrillation: Qualifiers: Atrial fibrillation type: unspecified chronic Qualified Code(s): I48.20 - Chronic atrial fibrillation, unspecified Code(s): I48.91 - Unspecified atrial fibrillation Status: Acute Assessment and Plan: Patient was on Eliquis anticoagulation because of atrial fibrillation. This been held because of occult blood in stools. (3) Bradycardia: Code(s): R00.1 - Bradycardia, unspecified Status: Acute (4) Charcot's joint of foot: Qualifiers: Laterality: right Qualified Code(s): M14.671 - Charcot's joint, right ankle and foot Code(s): M14.679 - Charcot's joint, unspecified ankle and foot Status: Chronic (5) Chronic anemia: Code(s): D64.9 - Anemia, unspecified Status: Acute Assessment and Plan: Patient has chronic anemia with baseline approximately 8. Hemoglobin was somewhat lower at presentation and he did receive transfusion. No active bleeding has been identified. Stool Hemoccult was initially positive will be repeated. (6) Chronic kidney disease with end stage renal failure on dialysis: Code(s): N18.6 - End stage renal disease; Z99.2 - Dependence on renal dialysis Status: Acute (7) Obesity (BMI 30.0-34.9): Code(s): E66.9 - Obesity, unspecified Status: Acute Subjective Date/time seen: 05/26/20 09:31 Patient comfortable this morning. Was found unresponsive last evening. Etiology of which is unclear. He has seems to have responded. Noted to have marked electrolyte imbalance at the time of presentation he he seems to have improved initially after dialysis. He has had no obvious blood loss. But stool was noted be Hemoccult-positive on presentation. Hemoglobin stable subsequently. He is chronically anemic. Review of Systems Review of Systems: All systems reviewed & are unremarkable except as noted in HPI and below Exam Narrative: Exam Narrative: At pressure present patient is alert. Vital signs stable. HEENT exam reveals no icterus. Lungs reveal clear to auscultation. Abdomen is obese. Bowel sounds are present soft no localized tenderness. No obvious masses. Objective Data Vital Signs Vital Signs: Vital Signs - 24 hr 05/25/20 09:45 05/25/20 10:00 05/25/20 10:15 Temperature Pulse Rate 63 66 71 Respiratory Rate Blood Pressure 132/56 L 119/50 L 125/58 L Pulse Oximetry 05/25/20 10:30 05/25/20 10:45 05/25/20 11:00 Temperature Pulse Rate 69 73 76 Respiratory Rate Blood Pressure 122/59 L 119/55 L 127/57 L Pulse Oximetry 05/25/20 11:15 05/25/20 11:30 05/25/20 11:45 Temperature Pulse Rate 78 57 L 78 Respiratory Rate Blood Pressure 122/49 L 123/49 L 121/56 L Pulse Oximetry 05/25/20 12:00 05/25/20 12:15 05/25/20 12:30 Temperature 98.0 F Pulse Rate 79 77 78 Respiratory Rate 18 Blood Pressure 105/46 L 112/47 L 130/54 L Pulse Oximetry 93 05/25/20 12:45 05/25/20 12:57 05/25/20 13:05 Temperature 98.4 F Pulse Rate 77 78 80 Respiratory Rate 16 Blood Pressure 114/45 L 129/63 132/58 L Pulse Oximetry 05/25/20 14:50 05/25/20 16:00 05/25/20 20:34 Temperature 97.3 F L 96.9 F L Pulse Rate 74 72 70 Respiratory Rate 16 18 Blood Pressure 108/71 124/77 Pulse Oximetry 97 95 05/25/20 21:00 05/25/20 21:4
[2020-05-26] MEDS: PANTOPRAZOLE SODIUM IV 40 MG VIAL IV PUSH (11:06)
--- NOTE | 2020-05-26 11:47 | PM.PNNEP ---
Progress Note: A&P Assessment and Plan (1) Acute kidney injury: Code(s): N17.9 - Acute kidney failure, unspecified Status: Acute Assessment and Plan: the patient has chronic kidney disease due to diabetes hypertension vascular disease. He had acute on chronic kidney disease at [facility]. not much urine output. (2) Anemia: Qualifiers: Anemia type: unspecified type Qualified Code(s): D64.9 - Anemia, unspecified Code(s): D64.9 - Anemia, unspecified Status: Acute Assessment and Plan: The patient has anemia. This is multifactorial, related to CKD, it and also guaiac-positive stools. Hemoglobin Improved yesterday afternoon and this morning to the high sevens. . (3) Hyperkalemia: Code(s): E87.5 - Hyperkalemia Status: Acute Assessment and Plan: Potassium is Normal today (4) Hyponatremia: Code(s): E87.1 - Hypo-osmolality and hyponatremia Status: Acute Assessment and Plan: Resolved (5) Atrial fibrillation: Qualifiers: Atrial fibrillation type: unspecified chronic Qualified Code(s): I48.20 - Chronic atrial fibrillation, unspecified Code(s): I48.91 - Unspecified atrial fibrillation Status: Acute Assessment and Plan: His heart rate is well controlled. (6) Coronary artery disease: Qualifiers: Associated angina: without angina Coronary Disease-Associated Artery/Lesion type: coquille artery [place] vs. transplanted heart: coquille heart Qualified Code(s): I25.10 - Atherosclerotic heart disease of coquille coronary artery without angina pectoris Code(s): I25.10 - Atherosclerotic heart disease of coquille coronary artery without angina pectoris Status: Acute Assessment and Plan: No chest pain. (7) Ischemic cardiomyopathy: Code(s): I25.5 - Ischemic cardiomyopathy Status: Acute Assessment and Plan: Breathing is better (8) Insulin dependent diabetes mellitus: Status: Acute Assessment and Plan: He is on Accu-Cheks and sliding-scale insulin (9) Hypertension: Qualifiers: Hypertension type: unspecified Qualified Code(s): I10 - Essential (primary) hypertension Code(s): I10 - Essential (primary) hypertension Status: Acute Assessment and Plan: his blood pressure is pretty well controlled. We will be taking fluid off. Subjective Date/time seen: 05/26/20 11:47 Interval history: Rl Did well in dialysis yesterday. He feels better today. Still very swollen Review of Systems Cardiovascular: Cardiovascular: Reports no additional cardiovascular complaints Respiratory: Respiratory: Reports no additional respiratory complaints Gastrointestinal: Gastrointestinal: Reports no additional gastrointestinal complaints Genitourinary: Genitourinary: Reports no additional male genitourinary complaints Exam Narrative: Exam Narrative: WDWN in NAD skin no rash but he has mae cheeks head ncat lungs clear bilaterally cor reg no rub abd BS+ nontender and soft ext 2+ edema. Objective Data Vital Signs Vital Signs: Vital Signs - 24 hr 05/25/20 12:00 05/25/20 12:15 05/25/20 12:30 Temperature 36.7 C Pulse Rate 79 77 78 Respiratory Rate 18 Blood Pressure 105/46 L 112/47 L 130/54 L Pulse Oximetry 93 05/25/20 12:45 05/25/20 12:57 05/25/20 13:05 Temperature 36.9 C Pulse Rate 77 78 80 Respiratory Rate 16 Blood Pressure 114/45 L 129/63 132/58 L Pulse Oximetry 05/25/20 14:50 05/25/20 16:00 05/25/20 20:34 Temperature 36.3 C L 36.1 C L Pulse Rate 74 72 70 Respiratory Rate 16 18 Blood Pressure 108/71 124/77 Pulse Oximetry 97 95 05/25/20 21:00 05/25/20 21:45 05/25/20 23:37 Temperature 36.2 C L Pulse Rate 73 74 80 Respiratory Rate 22 H 18 Blood Pressure 103/86 152/87 H Pulse Oximetry 99 96 05/26/20 00:00 05/26/20 02:18 05/26/20 04:00 Frannie
--- NOTE | 2020-05-26 11:49 | PM.PNCARD ---
Progress Note: A&P Additional Plan 64-year-old man with: Chronic ischemic cardiomyopathy and chronic atrial fibrillation. He is having problematic/symptomatic Jacinto arrhythmias with slow atrial fibrillation as detailed above. This is no longer attributable to his potassium as his potassium today is 4.8. His physicians at [facility] need to be contacted and I believe he should be transferred to the hospitalist service over there so his social services director at that hospital can implant a new device. Again this service is not available here at [facility] Barrington Lock MD [facility] Subjective Date/time seen: Date of service: 05/26/20 11:49 Interval history: Follow-up visit in this 64-year-old man with: History of coronary artery disease history of chronic atrial fibrillation and right bundle branch block. Consulted to see him yesterday because of Jacinto arrhythmias. Patient had a junctional escape rhythm with a heart rate in the 40s because of hyperkalemia. Following dialysis and correction of his potassium that has resolved. This morning there have been additional episodes of more significant bradycardia with heart rate going down into the 30s with what appears to be a slow junctional escape rhythm with his atrial fibrillation. He does become symptomatic when he is this bradycardic it did not last very long heart rate is at the moment back up into the low to mid 50s. Discussed with the patient the need for considering replacing his device again. He had a ICD placed initially in 2005 by his audio video mechanic/EP at [facility]. At the time of a generator change she estimates in 2008 or 2009 the pocket became infected in the entire device and leads of course had to be removed. He has not had a device then for more than 10 years. At this point since he is having problematic bradycardia with his slow atrial fib and is no longer taking any medications that would be implicated in this he should receive a new ICD. This is not a service we provide here at [facility]. Exam Const: General: comfortable and no acute distress Other: Obese chronically ill-appearing patient no distress HENMT: Mouth: Yes moist mucous membranes Eyes: Sclera: sclerae normal Pupils: Equal, round and reactive pupils present Neck: Neck: supple and no JVD Other: Very obese neck inability to discern JVD because of his body habitus Resp: Effort & Inspection: normal respiratory effort Cardio: Rhythm: regular rhythm and abnormal rhythm irregularly irregular Other: Patient in a junctional bradycardia. No discernible murmur PMI is not palpable because of his size GI: Auscultation: normal bowel sounds Skin: General skin exam: normal color Neuro: Cranial nerves: Yes Equal, round and reactive pupils present Other: As stated above patient very lethargic. When he is aroused he does answer questions appropriately Extrem: Other: Chronic lower extremity edema Objective Data Vital Signs Vital Signs: Vital Signs - 24 hr 05/25/20 12:00 05/25/20 12:15 05/25/20 12:30 Temperature 36.7 C Pulse Rate 79 77 78 Respiratory Rate 18 Blood Pressure 105/46 L 112/47 L 130/54 L Pulse Oximetry 93 05/25/20 12:45 05/25/20 12:57 05/25/20 13:05 Temperature 36.9 C Pulse Rate 77 78 80 Respiratory Rate 16 Blood Pressure 114/45 L 129/63 132/58 L Pulse Oximetry 05/25/20 14:50 05/25/20 16:00 05/25/20 20:34 Temperature 36.3 C L 36.1 C L Pulse Rate 74 72 70 Respiratory Rate 16 18 Blood Pressure 108/71 124/77 Pulse Oximetry 97 95 05/25/20 21:00 05/25/20 21:45 05/25/20 23:37 Temperature 36.2 C L Pulse Rate 73 74 80 Respiratory Rate 22 H 18 Blood Pressure 103/86 152/87 H Pulse Oximetry 99 96 05/26/20 00:00 05/26/20 02:18 05/26/20 04:00 Temperature 36.4 C L 36.1 C L Pulse Rate 73 59 L 59 L Respiratory Rate 17 24 H Blood Pressure 132/71 114/78 Pulse Oximetry 100 100 05/26/20 06:00 05/26/20 08:00 Temperat
[2020-05-26 12:05] LABS: Glucose Point of Care 201 (65-105)
[2020-05-26] MEDS: INSULIN ASPART (*BKC) 100 UNITS/ML SUB-Q (12:30)
--- NOTE | 2020-05-26 12:42 | PCPTNOTE ---
PT attempted re-eval per order request, and spoke with nurse prior to attempt. The patient is having cardiac issues with erradic heart rate. RN reports to hold re-eval until tomorrow due to patient status.
[2020-05-26] MEDS: CENTRAL LINE FLUSH 10 ML IV PUSH (13:49)
[2020-05-26 16:44] LABS: Glucose Point of Care 163 (65-105)
--- NOTE | 2020-05-26 18:30 | PM.TDS ---
Transfer Discharge Sum: Prov Provider Date of admission: 05/23/20 19:51 Primary care physician: Landy Villafana Admitting clinician: Mac Dixon MD Consults: 05/23/20 Consult to Physician Routine Comment: PHYSICIAN IS AWARE OF PT. Consulting Provider: Barrington Lock parking enforcer/MD group to consult: Cardiology Reason for consultation: Symptomatic bradycardia Has provider been notified: Yes Consult to Physician Routine Comment: physician aware Consulting Provider: Duane Bryan parking enforcer/MD group to consult: GI Reason for consultation: GI bleed Has provider been notified: Yes Wound/ET Consult Routine Reason for Consult:: Chronic ulceration to right foot and left lower extremity posterior and medial aspects of left lower extremity. Wound/ET Consult Routine Reason for Consult:: chronic charot foot on the right with chronic ulcer on the right and left lower ext ulcer chonic on the left 05/23/20 19:57 Consult to Physician Routine Comment: Consulting Provider: Raquel Morgan Reason for consultation: Hemodialysis Has provider been notified: Yes 05/24/20 01:00 Consult to Physician Routine Comment: PHYSICIAN IS AWARE Consulting Provider: Fernando Zafar parking enforcer/MD group to consult: Dr. Dow Reason for consultation: ICU transfer Has provider been notified: Yes 05/26/20 Consult to Physician Routine Comment: Exchange notified of routine consult Consulting Provider: Barrington Lock parking enforcer/MD group to consult: dr barrera Reason for consultation: bradycardia , syncopal episode Has provider been notified: Yes DS: Admitting Diagnosis Admitting Diagnosis Admitting Diagnosis: GI bleed/anemia/hyperkalemia/hyponatremia/coagulap DS: Discharge Diagnosis Discharge Diagnosis (1) Acute GI bleeding: Code(s): K92.2 - Gastrointestinal hemorrhage, unspecified Status: Acute Assessment and Plan: . Held anticoagulation at this time. Patient is on Eliquis for atrial fibrillation. the patient had stool positive for occult blood but no active bleeding. He was transfused 2 units of packed cells He has had chronic anemia but this is lower than typical. GI has seen and will probably need evaluation later hgb 7.8 at discharge and up from the previous day 7.2 (2) Hyperkalemia: Code(s): E87.5 - Hyperkalemia Status: Acute Assessment and Plan: Patient was due to have dialysis ., But he did not have dialysis because he felt too weak. Patient recently was started on Xanax which could be causing some dizziness. Potassium lower today 4.8 after yesterday dialysis and 4.9 at discharge (3) Chronic kidney disease with end stage renal failure on dialysis: Code(s): N18.6 - End stage renal disease; Z99.2 - Dependence on renal dialysis Status: Acute Assessment and Plan: Dialysis resumed 05/24 with 4 L removed, repeat session 05/25 with 3600 mL removed to get back to his Tue,Thur,Sat schedule (4) Paroxysmal atrial fibrillation: Code(s): I48.0 - Paroxysmal atrial fibrillation Status: Acute Assessment and Plan: Patient had been on Coreg and Eliquis. on hold + stool and initial bradycardia (5) End-stage renal disease on hemodialysis: Code(s): N18.6 - End stage renal disease; Z99.2 - Dependence on renal dialysis Status: Chronic Assessment and Plan: As above dialysis (6) Hypertension: Qualifiers: Hypertension type: unspecified Qualified Code(s): I10 - Essential (primary) hypertension Code(s): I10 - Essential (primary) hypertension Status: Acute Assessment and Plan: Patient is hypotensive and held his blood pressure medicine at this time which is only low-dose Coreg (7) Hyperlipidemia: Code(s): E78.5 - Hyperlipidemia, unspecified Status: Acute Assessment and Plan: restart Crestor at this time. (8)
== END 2020-05-26 18:35 | disposition short-term general hospital (02) | DRG 640 ==
LOC: ANHED 20:18 → ANHIMU 05-24 11:31 → ANH3MED 05-31 11:50 → ANHIMU 05-31 11:50
PROVIDERS: Family Medicine; Internal Medicine; Internal Medicine Gastroenterology; Internal Medicine Nephrology; Nurse Practitioner; Admitting Provider Internal Medicine; Emergency Provider Emergency Medicine; Visit Provider Internal Medicine
DX: E87.5 Hyperkalemia (principal); N18.6 End stage renal disease; I12.0 Hypertensive chronic kidney disease with stage 5 chronic kidney disease or end stage renal disease; D68.9 Coagulation defect, unspecified; L97.229 Non-pressure chronic ulcer of left calf with unspecified severity; E87.1 Hypo-osmolality and hyponatremia; D63.1 Anemia in chronic kidney disease; Z20.828 Contact with and (suspected) exposure to other viral communicable diseases; R19.5 Other fecal abnormalities; E11.22 Type 2 diabetes mellitus with diabetic chronic kidney disease; Z99.2 Dependence on renal dialysis; E11.40 Type 2 diabetes mellitus with diabetic neuropathy, unspecified; E11.610 Type 2 diabetes mellitus with diabetic neuropathic arthropathy; E11.621 Type 2 diabetes mellitus with foot ulcer; L97.519 Non-pressure chronic ulcer of other part of right foot with unspecified severity; I48.0 Paroxysmal atrial fibrillation; R07.89 Other chest pain; E66.9 Obesity, unspecified; Z68.39 Body mass index [BMI] 39.0-39.9, adult; I89.0 Lymphedema, not elsewhere classified; I83.022 Varicose veins of left lower extremity with ulcer of calf; I25.10 Atherosclerotic heart disease of native coronary artery without angina pectoris; I25.5 Ischemic cardiomyopathy; I45.10 Unspecified right bundle-branch block; W19.XXXA Unspecified fall, initial encounter; Z96.653 Presence of artificial knee joint, bilateral; Z79.01 Long term (current) use of anticoagulants; Z79.4 Long term (current) use of insulin; Z89.421 Acquired absence of other right toe(s)
CPT/HCPCS: 36415; 36430; 36600; 70450; 71045; 71100; 72125; 80048; 80053; 81001; 82375; 82728; 82805; 83050; 83540; 83550; 83605; 83735; 84100; 84484; 85014; 85018; 85025; 85055; 85610; 85730; 86140; 86705; 86706; 86850; 86900; 86901; 86920; 87040; 87086; 87340; 87635; 93005; 93306; 94640; 96361; 96374; 96375; 97163; 97166; 99285; A9270; C1751; C9113; C9803; G0257; J0461; J0610; J1265; J1815; J2060; J2405; J7030; J7050; P9016; Q5106; U0003

== ENCOUNTER 2020-06-20 11:19 | Emergency (ER) | payer MEDICARE, OTHER, SELFPAY ==
--- NOTE | ~2020-06-20 | XR_ITS ---
XR hip RT 2V w AP pelvis DATE: 06/20/2020 12:23 INDICATION: Fall 2 days ago. Right hip pain. TECHNIQUE: AP pelvis. AP and lateral views of right hip COMPARISON: None FINDINGS: No pelvic fracture or bone destruction is detected. The pubic symphysis and sacroiliac join ts are intact. Hip joint spaces are symmetric, relatively well preserved. No fracture or dislocation, avascular necrosis or bone destruction of the right hip is evident. Iliac and femoral artery calcifications. IMPRESSION: No pelvic or right hip fracture is detected Reviewed, dictated and finalized at location B. RONMENT COORDINATOR
--- NOTE | ~2020-06-20 | XR_ITS ---
EXAMINATION: XR knee LT min 4V DATE: 06/20/2020 12:23 INDICATION: Left knee pain. TECHNIQUE: 4 views of left knee were obtained. COMPARISON: None. FINDINGS: There is a total left knee arthroplasty in near-anatomic alignment with patellar resurfacin g. No fracture. No periprosthetic lucency to suggest loosening or infection. No knee joint effusion. IMPRESSION: 1. Total left knee arthroplasty in near-anatomic alignment. Reviewed, dictated and finalized at location A. TESTER
--- NOTE | ~2020-06-20 | XR_ITS ---
XR lumbar spine 2-3V DATE: 06/20/2020 12:22 INDICATION: Fall 2 days ago. Low back and right hip pain TECHNIQUE: AP, lateral, coned lateral lumbosacral views COMPARISON: None FINDINGS: There is mild anterior wedge compression fracture deformity of L1, which may be recent. Diffuse osteopenia. There is mild degenerative disease at L1-2 and L2-3, moderate degenerative disease at L3-4. There is moderately severe degenerative disc disease at L4-5 and moderate degenerative disc disease at L5-S1. There is minimal anterolisthesis at L2-3. There is mild dextro scoliosis of the lumbar spine. The lumbar pedicles are intact. The sacroiliac joints appear unremarkable. There is extensive calcification of the abdominal aorta and iliac arteries. IMPRESSION: Mild anterior wedge compression fracture deformity of L1, possibly recent Diffuse osteopenia Mild dextroscoliosis Multilevel degenerative disc disease Reviewed, dictated and finalized at location B. TRY DEBEAKER
--- NOTE | 2020-06-20 11:40 | ED.BACK ---
HPI - Back Pain/Injury General Chief Complaint: Back Pain/Injury Stated Complaint: back/hip pain Source: patient Mode of arrival: wheelchair Limitations: no limitations History of Present Illness HPI Narrative: Patient is a 64-year-old male who presents with . Patient is in a wheelchair upon arrival after fall on Wednesday with complaints of low back pain. Patient is on blood thinners. He denies hitting head, neck pain, or other injuries. Patient has PCP and knife blade polisher, seen by cardiology yesterday. Patient also has home health nurse for wound care. Denies taking otc medications for pain at this time. Patient reports pain 10/10 with movement. Denies numbness, tingling, or loss of bowel or bladder control. MD elicited complaint: back pain, back injury and fall Related Data Home Medications Medication Instructions Recorded Confirmed Eliquis 5 mg PO BID 04/06/20 06/20/20 allopurinol 100 mg PO DAILY 04/06/20 06/20/20 brimonidine 0.2 % OPHTHALMIC (EYE) BID 04/06/20 06/20/20 carvedilol 3.125 mg PO BID 04/06/20 06/20/20 dorzolamide-timolol 22.3 ml OPHTHALMIC (EYE) BID 04/06/20 06/20/20 gabapentin 300 mg PO BID 04/06/20 06/20/20 insulin aspart U-100 [Novolog See Rx Instructions .ROUTE .COMPLEX 04/06/20 05/24/20 Flexpen U-100 Insulin] rosuvastatin 10 mg PO DAILY 04/06/20 06/20/20 sertraline 100 mg PO DAILY 04/06/20 06/20/20 trazodone 50 mg PO PRN PRN 04/06/20 06/20/20 alprazolam 0.25 mg PO BID PRN 05/24/20 06/20/20 duloxetine 60 mg PO DAILY 05/24/20 06/20/20 bumetanide 2 mg BID 06/20/20 06/20/20 sevelamer carbonate 800 mg TID 06/20/20 06/20/20 Allergies Allergy/AdvReac Type Severity Reaction Status Date / Time shellfish derived Allergy Intermediate Unknown Verified 05/23/20 17:40 heparin Allergy Unknown Unknown Verified 05/23/20 17:40 iohexol Allergy Unknown Unknown Verified 05/23/20 17:40 [From contrast - CT, X-RAY] spironolactone Allergy Unknown Unknown Verified 05/23/20 17:40 [From Aldactone] Xtpxmpl-Kda-Jvl Reductase Allergy Unknown Unknown Verified 05/23/20 17:40 Inhibitor Review of Systems Review of Systems: Narrative: CONSTITUTIONAL: Denies fever, chills, or sweats. EYES: Denies visual changes, redness, or discharge. ENT: Denies rhinorrhea, congestion, sore throat, or otalgia. CARDIOVASCULAR: Denies chest pain, palpitations, or edema. RESPIRATORY: Denies cough or dyspnea. GASTROINTESTINAL: Denies abdominal pain, nausea, vomiting, or diarrhea. GENITOURINARY: Denies dysuria or hematuria. SKIN: Denies rash or itching. MUSCULOSKELETAL: Reports lower back pain NEUROLOGIC: Denies headache, numbness, dizziness, or weakness. PSYCHIATRIC: Denies anxiety or depression. [facility] Past Medical History Medical History Acute kidney injury Amputation toe 2nd toe on the right Charcot's joint of foot Chronic anemia Chronic wound of extremity Coronary artery disease End-stage renal disease on hemodialysis Glaucoma Hyperlipidemia Hypertension Insulin dependent diabetes mellitus Ischemic cardiomyopathy Patient reports recent ejection fraction of about 35%. Osteoarthritis Paroxysmal atrial fibrillation Ventricular tachyarrhythmia Surgical History Surgical History History of bilateral knee arthroplasty History of cardiac catheterization (~2005) With history of stent to the LAD. History of implantable cardioverter-defibrillator (ICD) insertion With subsequent removal due to pocket infection. History of orthopedic surgery Right arm ORIF with hardware. History of tonsillectomy History of tracheostomy After lengthy hospitalization in 2018 for sepsis due to cellulitis. S/P dialysis catheter insertion Right chest Status post debridement Multiple debridements of bilateral lower leg wounds over the years. Family History Family History Mother Beti
[2020-06-20 11:42] VITALS: BP 113/59; PULSE 82; RESP 20; TEMP 36.6; O2SAT 99
== END 2020-06-20 13:33 | disposition home or self-care (01) ==
PROVIDERS: Emergency Provider Nurse Practitioner; PCP Internal Medicine
DX: S32.010A Wedge compression fracture of first lumbar vertebra, initial encounter for closed fracture (principal); W19.XXXA Unspecified fall, initial encounter; I13.11 Hypertensive heart and chronic kidney disease without heart failure, with stage 5 chronic kidney disease, or end stage renal disease; E11.22 Type 2 diabetes mellitus with diabetic chronic kidney disease; N18.6 End stage renal disease; Z99.2 Dependence on renal dialysis; Z79.4 Long term (current) use of insulin; I25.10 Atherosclerotic heart disease of native coronary artery without angina pectoris; E78.5 Hyperlipidemia, unspecified; M19.90 Unspecified osteoarthritis, unspecified site; I48.0 Paroxysmal atrial fibrillation
CPT/HCPCS: 72100; 73502; 73564; 99214; G0463

== ENCOUNTER 2021-10-03 12:55 | Inpatient (IN) | payer MEDICARE, OTHER, SELFPAY ==
[2021-10-03] VITALS (10 sets, daily range): BP systolic 88–115; BP diastolic 40–67; PULSE 39–52; RESP 15–22; TEMP 36.3–36.4; O2SAT 92–100; BMI 42.3
--- NOTE | ~2021-10-03 | XR_ITS ---
EXAMINATION: XR chest 1V portable DATE: 10/18/2021 05:48 INDICATION: Respiratory failure. TECHNIQUE: A single frontal view of the chest was obtained. COMPARISON: Chest single view 10/17/2021, chest CT 10/09/2021 FINDINGS: There is a moderate-sized left pleural effusion. There are airspace opacities at left lung base. There are mild airspace opacities in right lower lung zone. No pneumothorax. Cardiomegaly is no gucci. There is a tracheostomy tube in expected position. A right internal jugular central venous amaury ter is seen with tip in the superior vena cava. The nasogastric tube is not well visualized. IMPRESSION: 1. Stable moderate-sized left pleural effusion. 2. Stable airspace opacities in right lower lung zone and at left lung base, consistent with atelecta sis versus pneumonia. 3. Cardiomegaly. Reviewed, dictated and finalized at location A. IMPRESSION: 1. Stable moderate-sized left pleural effusion. 2. Stable airspace opacities in right lower lung zone and at left lung base, co nsistent with atelectasis versus pneumonia. 3. Cardiomegaly.
--- NOTE | ~2021-10-03 | XR_ITS ---
EXAMINATION: XR chest 1V portable DATE: 10/09/2021 05:36 INDICATION: Respiratory failure. TECHNIQUE: A single frontal view of the chest was obtained. COMPARISON: Chest single view 10/08/2021, chest CT 10/05/2021 FINDINGS: There are small right and moderate-sized left pleural effusions. There are airspace opaciti es in the mid and lower lung zones. No pneumothorax. Cardiomegaly is noted. The endotracheal tube tip is 4.7 cm above the sohail. The nasogastric tube tip is in the stomach. A right internal jugular bj tral venous catheter is seen with tip in the superior vena cava. IMPRESSION: 1. Stable small right and moderate-sized left pleural effusions. 2. Stable airspace opacities in the mid and lower lung zones, consistent with atelectasis versus pneu monia. 3. Cardiomegaly. Reviewed, dictated and finalized at location A. IMPRESSION: 1. Stable small right and moderate-sized left pleural effusions. 2. Stable airspace opacities in the mid and lower lung zones, consistent with a telectasis versus pneumonia. 3. Cardiomegaly.
--- NOTE | ~2021-10-03 | XR_ITS ---
EXAMINATION: XR chest 1V portable EXAM DATE: 10/12/2021 07:09 INDICATION: intubated TECHNIQUE: Portable AP frontal chest x-ray was obtained. Comparison is made to prior examination from 10/11/2021. FINDINGS: Endotracheal tube, right-sided IJ line are in position. Feeding tube poorly visualized on this study Again there is cardiomegaly and pulmonary vascular congestion. Patchy bilateral edema or pneumonia. P robable moderate left pleural effusion. There is no pneumothorax suspected. The bones and soft tiss ues are unremarkable. There is no significant interval change compared to prior exam. IMPRESSION: 1. ET, right IJ in position. Feeding tube poorly visualized. 2. Stable airspace disease and other findings as above. Reviewed, dictated and finalized at location A.
--- NOTE | ~2021-10-03 | XR_ITS ---
EXAMINATION: XR abdomen NG/feed tube insert INDICATION: Nasogastric tube insertion TECHNIQUE: Portable AP KUB-NG at 0038 hours COMPARISON: None available FINDINGS: The nasogastric tube is in the stomach. A moderate volume of colonic stool is present. IMPRESSION: 1. Nasogastric tube in the stomach. Reviewed, dictated and finalized at location A.
--- NOTE | ~2021-10-03 | XR_ITS ---
EXAMINATION: XR chest 1V portable DATE: 10/25/2021 05:59 INDICATION: Acute respiratory failure. COPD exacerbation. TECHNIQUE: frontal view of the chest was obtained. COMPARISON: Chest radiograph dated 10/24/21 FINDINGS: Tracheostomy tube at the thoracic inlet. Nasogastric tube extends below the left hemidiaphragm with distal tip collimated off the study. Large-bore dual-lumen likely tunneled right internal jugular bj tral venous catheter with distal tip at the superior cavoatrial junction. At the apex of the loop of the catheter at the neck is a kink. Improved aeration of the left lung. Persistent consolidation in the left mid to lower lung zone. Righ t lung remains clear. No pneumothorax or right pleural effusion. Cardiomegaly. IMPRESSION: 1. Persistent [id number] left pleural effusion and associated basilar atelectasis and/or pneum onia. 2. Cardiomegaly. Reviewed, dictated and finalized at location A. IMPRESSION: 1. Persistent [id number] left pleural effusion and associated basilar at electasis and/or pneumonia. 2. Cardiomegaly.
--- NOTE | ~2021-10-03 | XR_ITS ---
EXAMINATION: XR chest 1V portable DATE: 10/20/2021 17:21 INDICATION: Post unsuccessful port catheter placement TECHNIQUE: frontal view of the chest was obtained. COMPARISON: Chest radiograph dated 10/19/2021 FINDINGS: Tracheostomy tube at the thoracic inlet. Nasogastric tube extends below the left hemidiaphragm with distal tip collimated off the study. Right internal jugular central venous catheter with distal tip a t junction of the right brachiocephalic vein and superior vena cava. Airspace opacities throughout the left lung most prominent in the upper and lower lung zones with mor e groundglass appearance in the mid lung zones. Right lung is clear. No pneumothorax. Cardiomegaly. IMPRESSION: 1. Opacities throughout the left lung consistent with atelectasis, pneumonia, small to moderate left pleural effusion or some combination thereof. 2. Cardiomegaly. Reviewed, dictated and finalized at location A. IMPRESSION: 1. Opacities throughout the left lung consistent with atelectasis, pneumonia, s mall to moderate left pleural effusion or some combination thereof. 2. Cardiomegaly.
--- NOTE | ~2021-10-03 | US_ITS ---
EXAMINATION: US abdomen limited DATE: 10/16/2021 08:26 INDICATION: Abdominal pain. TECHNIQUE: Multiple grayscale and Doppler ultrasound images of the abdomen were obtained. COMPARISON: CT abdomen and pelvis 10/09/2021 FINDINGS: The pancreas is obscured by bowel gas. The liver is normal without focal lesion. The gallbl adder is contracted. No gallstones. The common duct is normal and measures 5 mm. IMPRESSION: 1. No etiology for the patient's symptoms. Reviewed, dictated and finalized at location A.
--- NOTE | ~2021-10-03 | XR_ITS ---
EXAMINATION: XR chest 1V portable INDICATION: Respiratory failure TECHNIQUE: Portable AP chest at 0516 hours COMPARISON: 10/15/2021 FINDINGS: The endotracheal tube ends approximately 4.7 cm above the sohail. The nasogastric tube is f ollowed as far as the stomach. Its tip is beyond the inferior margin of the radiograph. A right inter nal jugular central venous catheter ends with its tip in the proximal superior vena cava. Cardiomegal y is noted. There is a small unchanged left pleural effusion. A mild diffuse interstitial pattern per sists but has improved. Right basilar airspace opacities have improved. There are unchanged left basi lar airspace opacities. IMPRESSION: 1. Cardiomegaly with improving pulmonary edema. 2. Resolved right and stable left basilar airspace opacity, consistent with atelectasis versus pneumo natasha. 3. Small left pleural effusion, stable. Reviewed, dictated and finalized at location A. IMPRESSION: 1. Cardiomegaly with improving pulmonary edema. 2. Resolved right and stable left basilar airspace opacity, consistent with ate lectasis versus pneumonia. 3. Small left pleural effusion, stable.
--- NOTE | ~2021-10-03 | CT_ITS ---
EXAMINATION: CT brain wo con EXAM DATE: 10/09/2021 13:35 INDICATION: Encephalopathy, cardiac arrest on 10/05/21. TECHNIQUE: Spiral CT of the head was performed without contrast. Axial, coronal and sagittal images were reviewed. The dose-length product (DLP) for this examination was 681.00 mGy-cm. The exposure w as tailored according to patient size, and iterative reconstruction (ASIR) was used as additional dos e reduction technique. Comparison is made to prior examination from 10/05/2021. FINDINGS: There is no acute intraparenchymal hemorrhage. No evidence of intraparenchymal brain mass lesion. No evidence of acute infarction. Please note that initial head CT has limited sensitivity f or small or acute infarctions. There is mild periventricular and subcortical hypodensity, nonspecifi c but probably related to small vessel ischemic disease. There is mild prominence of the sulci and ventricles related to cerebral atrophy. There is intracranial carotid arteriosclerosis. There are no extra-axial collections. There is no mass effect or midline shift. Patient has had left-sided oc ular lens surgery. Soft tissue is unremarkable. The visualized sinuses and mastoid air cells are w ell aerated. IMPRESSION: 1. No acute intracranial findings or interval change. 2. Mild atrophy and microangiopathy. Reviewed, dictated and finalized at location A.
--- NOTE | ~2021-10-03 | XR_ITS ---
EXAMINATION: XR chest 1V DATE: 10/03/2021 13:39 INDICATION: Chest pain post fall TECHNIQUE: frontal view of the chest was obtained. COMPARISON: Chest radiograph dated 05/23/2020 FINDINGS: Patient is rotated towards the left. Opacities in the left mid to lower lung zone including a triangu lar opacity extending superomedially from the region of the left costophrenic angle consistent with a likely small to moderate-sized left pleural effusion with some fluid tracking along the major fissur e. There is approximately 4.5 cm masslike opacity projecting over the region of the left hilum. Pulmo nary vascular congestion. No pneumothorax or right-sided pleural effusion. The left side of the cardi ac silhouette is obscured but has been enlarged on prior imaging. IMPRESSION: 1. Opacities in the left mid and lower lung zone consistent with a small to moderate left pleural eff usion and associated atelectasis and/or pneumonia. 2. Partially 4.5 cm masslike opacity projecting over the region of the left hilum which could represe nt a lung mass, left hilar lymphadenopathy or prominent enlarged main pulmonary artery accentuated by some leftward rotation of the patient. Recommend chest CT, preferably with contrast, for further trung luation. Reviewed, dictated and finalized at location A. IMPRESSION: 1. Opacities in the left mid and lower lung zone consistent with a small to mod erate left pleural effusion and associated atelectasis and/or pneumonia. 2. Partially 4.5 cm masslike opacity projecting over the region of the left hil um which could represent a lung mass, left hilar lymphadenopathy or prominent e nlarged main pulmonary artery accentuated by some leftward rotation of the guillermina ent. Recommend chest CT, preferably with contrast, for further evaluation.
--- NOTE | ~2021-10-03 | XR_ITS ---
EXAMINATION: XR fl guide central line place DATE: 10/22/2021 14:32 INDICATION: Insertion of the Duraflow permacath. TECHNIQUE: A single intraoperative fluoroscopic view of the chest was obtained. I was not present. Fl uoroscopy exposure time was 64 seconds. COMPARISON: Chest single view 10/20/2021 FINDINGS: A single image of the right chest demonstrates motion artifact. IMPRESSION: 1. Nondiagnostic image due to motion artifact. Reviewed, dictated and finalized at location B.
--- NOTE | ~2021-10-03 | XR_ITS ---
EXAMINATION: XR chest 1V portable INDICATION: Respiratory failure TECHNIQUE: Portable AP chest at 0531 hours COMPARISON: 10/13/2021 FINDINGS: The endotracheal tube ends approximately 4.2 cm above the sohail. The nasogastric tube is d ifficult to visualize but followed as far as the distal esophagus. A right internal jugular catheter ends with its tip in the proximal superior vena cava. Cardiomegaly is noted. A mild diffuse interstit ial pattern persists without significant change. There is a stable small left pleural effusion. Bibas ilar airspace opacities are unchanged. There is no pneumothorax. IMPRESSION: 1. Cardiomegaly with stable mild pulmonary edema. 2. Small left pleural effusion, stable. 3. Unchanged bibasilar airspace opacities, consistent with atelectasis versus pneumonia. Reviewed, dictated and finalized at location A. IMPRESSION: 1. Cardiomegaly with stable mild pulmonary edema. 2. Small left pleural effusion, stable. 3. Unchanged bibasilar airspace opacities, consistent with atelectasis versus p neumonia.
--- NOTE | ~2021-10-03 | XR_ITS ---
EXAMINATION: XR fl guide central line place EXAM DATE: 10/20/2021 16:57. INDICATION: Tunnel dialysis catheter insertion. TECHNIQUE: Fluoroscopy used during XR fl guide central line place performed by Dr. Nikita Quintana MD. Radiologist was not present for the imaging or procedure. Total fluoroscopic time of 291 seco nds The DAP for this procedure was 2.9 mGym2. A total of 4 images sent to PACS from the exam. Imag es completed/made available on 10/22/2021. FINDINGS: Image demonstrates tubes, left IJ venous line, subsequent wire extending along the right I J course. Correlate with procedure note. IMPRESSION: Fluoroscopy used during XR fl guide central line place. Reviewed, dictated and finalized at location A.
--- NOTE | ~2021-10-03 | US_ITS ---
EXAMINATION: US venous doppler [facility] DATE: 10/05/2021 13:00 INDICATION: Cardiac arrest. TECHNIQUE: Hahn scale images without and with compression and Doppler images of the bilateral lower e xtremity veins were obtained. COMPARISON: 07/21/18. FINDINGS: The right common femoral vein, profunda femoral vein, femoral vein, popliteal vein, peroneal trunk, p osterior tibial veins, and greater saphenous vein are patent. The left common femoral vein, profunda femoral vein, femoral vein, popliteal vein, peroneal trunk, po sterior tibial veins, and greater saphenous vein are patent. IMPRESSION: 1. Patent bilateral lower extremity veins. No evidence of deep venous thrombosis. Reviewed, dictated and finalized at location K. IMPRESSION: 1. Patent bilateral lower extremity veins. No evidence of deep venous thrombosi s.
--- NOTE | ~2021-10-03 | XR_ITS ---
EXAMINATION: XR chest port-a-cath/central INDICATION: Permacath insertion TECHNIQUE: Portable AP chest at 1455 hours COMPARISON: 10/20/2021 FINDINGS: A tracheostomy is in expected position. The nasogastric tube is followed as far as the stom ach. Its tip is beyond the inferior margin of the radiograph. A right internal jugular dialysis amaury ter is been inserted which appears kinked at the skin. Its tip into the proximal right atrium. Cardio megaly is noted. There appears to be a [id number] sized left pleural effusion. Diffuse opaciti es persist throughout the left lung without significant change. There is no pneumothorax. IMPRESSION: 1. Right internal jugular dialysis catheter insertion which is kinked at the skin. 2. Cardiomegaly. 3. Diffuse opacities throughout the left lung, consistent with atelectasis and/or pneumonia and left pleural effusion. Reviewed, dictated and finalized at location F. IMPRESSION: 1. Right internal jugular dialysis catheter insertion which is kinked at the sk in. 2. Cardiomegaly. 3. Diffuse opacities throughout the left lung, consistent with atelectasis and/ or pneumonia and left pleural effusion.
--- NOTE | ~2021-10-03 | XR_ITS ---
EXAMINATION: XR chest ET placement INDICATION: Endotracheal tube insertion TECHNIQUE: Portable AP chest at 2210 hours COMPARISON: 10/03/2021 FINDINGS: The lower half of the thorax is excluded from the examination. The endotracheal tube ends a pproximately 5 cm above the sohail. There is a diffuse interstitial pattern is visualized portions of the lungs. Cardiomegaly is noted. Advanced osteoarthritis is noted in the left shoulder. IMPRESSION: 1. Endotracheal tube approximately 5 cm above the sohail. 2. Likely mild pulmonary edema. Reviewed, dictated and finalized at location A.
--- NOTE | ~2021-10-03 | XR_ITS ---
EXAMINATION: XR fl Dobhoff insert/rad w img DATE: 10/31/2021 10:37 INDICATION: Respiratory failure. TECHNIQUE: I placed a nasoenteric tube under fluoroscopic guidance. Fluoroscopy exposure time was 1.4 minutes. The number of images was 1. COMPARISON: CT abdomen and pelvis 10/29/2021 FINDINGS: The nasoenteric tube tip is in the stomach. IMPRESSION: 1. Fluoroscopy guided nasoenteric tube placement with tip in the stomach. Reviewed, dictated and finalized at location A.
--- NOTE | ~2021-10-03 | XR_ITS ---
EXAMINATION: XR fl Dobhoff insert/rad w img DATE: 10/28/2021 14:26 INDICATION: Acute respiratory failure. TECHNIQUE: I placed a nasoenteric tube under fluoroscopic guidance. Fluoroscopy exposure time was 0.7 minutes. The number of images was 1. COMPARISON: Chest CT 10/09/2021 FINDINGS: The nasoenteric tube tip is in the stomach. The nasogastric tube tip is in the stomach. IMPRESSION: 1. Fluoroscopy guided nasoenteric tube placement with tip in the stomach. Reviewed, dictated and finalized at location A.
--- NOTE | ~2021-10-03 | CT_ITS ---
EXAMINATION: CT chest abdomen pelvis wo con DATE: 10/09/2021 13:35 INDICATION: Pneumonia, pleural effusion and ileus TECHNIQUE: Computed tomography (CT) of the chest, abdomen, and pelvis was performed without intraveno us contrast. Automated exposure control and iterative reconstruction technique were employed. The dos e-length product was 1955.50 mGy-cm. COMPARISON: 10/05/2021 FINDINGS: CHEST CT: Endotracheal tube tip 4.6 cm above the sohail. Nasogastric tube tip in the body of the stomach. Right internal jugular central venous catheter with distal tip in the midsuperior vena cava. Small right a nd moderate left pleural effusions with complete collapse of the bilateral lower lobes and dependent compressive atelectasis in the bilateral upper lobes, right middle lobe and lingula. There are few sc attered calcified pulmonary nodules consistent with old granulomatous disease. No pulmonary edema or pneumonia within the aerated portions of the lungs. Cardiomegaly. Atherosclerotic coronary artery nelson cification. No pericardial effusion. Thoracic aorta is normal in caliber with no dissection. Enlargem ent of the central pulmonary arteries consistent with pulmonary arterial hypertension. 2.2 x 1.4 cm r etrosternal anterior mediastinal mass. No other pathologically enlarged thoracic lymphadenopathy. Aga in seen are relatively recent-appearing left second-sixth rib fractures. Old fractures of the sternum and several right ribs. Additional old healed fracture of the proximal left humerus. Small region of osteonecrosis at the right humeral head. ABDOMEN/PELVIS CT: Liver, gallbladder, spleen, pancreas and bilateral adrenal glands are normal. Mild bilateral renal at rophy with perinephric stranding. Peritoneal dialysis catheter coiled in the pelvis. Bladder is essie l. Bowels are normal with no dilation to suggest ileus or obstruction. Small amount of perihepatic as cites with additional small amount of ascites ascites in the right paracolic gutter. No abscess or fr ee intraperitoneal gas. Unchanged mild bilateral external iliac chain lymphadenopathy which is likely reactive. Severe lumbar spondylosis. Unchanged subacute to chronic L1 compression fracture with 40% anterior vertebral body height loss. IMPRESSION: 1. Small right and moderate left pleural effusions with collapse of the bilateral lower lobes with ad ditional dependent compressive atelectasis. 2. Cardiomegaly. 3. Nonspecific 2.2 x 1.4 cm anterior mediastinal mass with differential including enlarged lymph node or thymoma. 4. Small volume of ascites with peritoneal dialysis catheter. Reviewed, dictated and finalized at location B. IMPRESSION: 1. Small right and moderate left pleural effusions with collapse of the bilater al lower lobes with additional dependent compressive atelectasis. 2. Cardiomegaly. 3. Nonspecific 2.2 x 1.4 cm anterior mediastinal mass with differential includi ng enlarged lymph node or thymoma. 4. Small volume of ascites with peritoneal dialysis catheter.
--- NOTE | ~2021-10-03 | XR_ITS ---
EXAMINATION: XR chest 1V portable DATE: 10/28/2021 06:05 INDICATION: Acute respiratory failure. TECHNIQUE: A single frontal view of the chest was obtained. COMPARISON: Chest single view 10/27/2021, chest CT 10/09/2021 FINDINGS: There is a moderate-sized left pleural effusion. There are airspace opacities at the lung b ases. No pneumothorax. Cardiomegaly is noted. There is a tracheostomy tube in expected position. A ri ght internal jugular central venous catheter is seen with tip at the superior cavoatrial junction. IMPRESSION: 1. Moderate-sized left pleural effusion with mild worsening. 2. Airspace opacities at the lung bases with worsening on the right, consistent with atelectasis vers us pneumonia. 3. Cardiomegaly. Reviewed, dictated and finalized at location A. IMPRESSION: 1. Moderate-sized left pleural effusion with mild worsening. 2. Airspace opacities at the lung bases with worsening on the right, consistent with atelectasis versus pneumonia. 3. Cardiomegaly.
--- NOTE | ~2021-10-03 | XR_ITS ---
EXAMINATION: XR foot LT 2V DATE: 10/07/2021 13:06 INDICATION: Left foot ulcer. TECHNIQUE: 2 views of left foot were obtained. COMPARISON: None. FINDINGS: There is lateral subluxation of third distal phalanx with respect to the middle phalanx. No fracture. There is moderate osteoarthritis of first metatarsophalangeal joint and mild osteoarthriti s of some of the midfoot joints and interphalangeal joints. Osteopenia is noted. No evidence of osteo myelitis. There is soft tissue swelling. IMPRESSION: 1. Polyarticular osteoarthritis. Reviewed, dictated and finalized at location A.
--- NOTE | ~2021-10-03 | XR_ITS ---
EXAMINATION: XR chest port-a-cath/central INDICATION: Central line insertion TECHNIQUE: Portable AP chest at 0036 hours COMPARISON: 10/04/2021 FINDINGS: The endotracheal tube ends approximately 4.1 cm above the sohail. The nasogastric tube is f ollowed as far as the stomach. Its tip is beyond the inferior margin of the radiograph. A right inter nal jugular central venous catheter is been inserted which ends with its tip proximal superior vena c tahmina. Cardiomegaly is noted. There is a mild diffuse interstitial pattern. Left basilar airspace opaci ties persist without significant change. No pneumothorax is identified. There is a small left pleural effusion. IMPRESSION: 1. Right internal jugular central venous catheter insertion without pneumothorax. 2. Cardiomegaly with mild pulmonary edema. 3. Left basilar airspace opacity, consistent with atelectasis versus pneumonia. Reviewed, dictated and finalized at location A. IMPRESSION: 1. Right internal jugular central venous catheter insertion without pneumothora x. 2. Cardiomegaly with mild pulmonary edema. 3. Left basilar airspace opacity, consistent with atelectasis versus pneumonia.
--- NOTE | ~2021-10-03 | XR_ITS ---
EXAMINATION: XR foot RT 2V DATE: 10/07/2021 13:06 INDICATION: Foot ulcer. TECHNIQUE: 2 views of right foot were obtained. COMPARISON: None. FINDINGS: The fourth toe is absent. There is chronic lateral dislocation of the second-fifth metatars als with respect to the tarsals. There is a rocker-bottom foot with deformity of the midfoot bones wi th bone volume loss. There is severe neuropathic osteoarthropathy of the midfoot. There is severe ost eoarthritis of first metatarsophalangeal joint and mild osteoarthritis of some the interphalangeal carlos ints. There are enthesophytes at the posterior and plantar aspects of calcaneal tuberosity. There is an ulcer plantar to the midfoot. IMPRESSION: 1. 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 2. Ulcer plantar to the midfoot. The severe baseline abnormality of the midfoot bones severely decrea ses sensitivity and specificity for osteomyelitis. Reviewed, dictated and finalized at location A. IMPRESSION: 1. Severe neuropathic osteoarthropathy of the midfoot with rocker-bottom deform ity. 2. Ulcer plantar to the midfoot. The severe baseline abnormality of the midfoot bones severely decreases sensitivity and specificity for osteomyelitis.
--- NOTE | ~2021-10-03 | XR_ITS ---
EXAMINATION: XR chest 1V portable EXAM DATE: 10/11/2021 05:24 INDICATION: Acute respiratory failure TECHNIQUE: Portable AP frontal chest x-ray was obtained. Comparison is made to prior examination from 10/10, 10/09, 10/08. FINDINGS: Endotracheal tube tip is 5-6 centimeters above the sohail. There is a right-sided IJ venou s line. There is a nasogastric tube seen with tip collimated off the study, but below the left hemidi aphragm. Cardiac monitoring leads. Moderate amount of bilateral edema or pneumonia. Probable small to moderate left and small right ple ural effusions. There is no pneumothorax suspected. Cardiac silhouette is enlarged but stable in s ize compared to prior exam. There is pulmonary vascular congestion. The bones and soft tissues a re unremarkable. There is no significant interval change compared to prior exam. IMPRESSION: 1. Line and tube(s) in position. 2. Stable airspace disease and other findings as above. Reviewed, dictated and finalized at location A.
--- NOTE | ~2021-10-03 | XR_ITS ---
EXAMINATION: XR chest 1V portable INDICATION: Respiratory failure TECHNIQUE: Portable AP chest at 0512 hours COMPARISON: 10/14/2021 FINDINGS: The endotracheal tube ends approximately 4.5 cm above the sohail. A right internal jugular central venous catheter ends with its tip in the superior vena cava. The nasogastric tube is difficul t to visualize and its followed as far as the gastroesophageal junction. Cardiomegaly is noted. A mil d diffuse interstitial pattern persists with slight improvement. A small stable left pleural effusion is noted. Bibasilar airspace opacities persist without significant change. IMPRESSION: 1. Cardiomegaly with improving pulmonary edema. 2. Stable bibasilar airspace opacities, consistent with atelectasis versus pneumonia. 3. Small left pleural effusion. Reviewed, dictated and finalized at location A. IMPRESSION: 1. Cardiomegaly with improving pulmonary edema. 2. Stable bibasilar airspace opacities, consistent with atelectasis versus pneu monia. 3. Small left pleural effusion.
--- NOTE | ~2021-10-03 | XR_ITS ---
EXAMINATION: XR chest 1V portable DATE: 10/27/2021 05:25 INDICATION: Acute respiratory failure. TECHNIQUE: A single frontal view of the chest was obtained. COMPARISON: Chest single view 10/26/2021, chest CT 10/09/2021 FINDINGS: The patient is rotated to his left. There is a moderate-sized left pleural effusion. There are airspace opacities in the mid and lower lung zones, left worse than right. No pneumothorax. Cardi omegaly is noted. There is a tracheostomy tube in expected position. The nasogastric tube tip is beyo nd the inferior margin of the radiograph, but at least to the stomach. A right internal jugular centr al venous catheter is seen with tip at the superior cavoatrial junction. IMPRESSION: 1. Stable moderate-sized left pleural effusion. 2. Stable airspace opacities in the mid and lower lung zones, consistent with atelectasis versus pneu monia. 3. Cardiomegaly. Reviewed, dictated and finalized at location A. IMPRESSION: 1. Stable moderate-sized left pleural effusion. 2. Stable airspace opacities in the mid and lower lung zones, consistent with a telectasis versus pneumonia. 3. Cardiomegaly.
--- NOTE | ~2021-10-03 | CT_ITS ---
EXAMINATION: CT brain wo con DATE: 10/05/2021 10:50 INDICATION: Cardiac arrest. TECHNIQUE: Computed tomography (CT) of the head was performed without intravenous contrast. The mA wa s adjusted according to patient size. Iterative reconstruction technique was employed. The dose-lengt h product was 681.00 mGy-cm. COMPARISON: Head CT 10/03/2021 FINDINGS: There are scattered areas of low attenuation in the cerebral white matter, which is within normal limits for the patient's age. There is no intracranial hemorrhage, acute infarction, or abnorm al intracranial mass lesion. The ventricles are normal in size. There is mild mucosal thickening in t he paranasal sinuses. There is dependent fluid in the sphenoid sinuses. The mastoid air cells are nor mal. There are likely changes of left ocular lens replacement surgery. There is an implant inferior m edial to the left ocular globe. IMPRESSION: 1. Normal aging brain. Reviewed, dictated and finalized at location E. IMPRESSION: 1. Normal aging brain.
--- NOTE | ~2021-10-03 | XR_ITS ---
EXAMINATION: XR chest 1V portable DATE: 10/27/2021 07:52 INDICATION: Dialysis catheter adjustment. TECHNIQUE: A single frontal view of the chest was obtained. COMPARISON: Chest single view 10/27/2021 at 5:13 AM FINDINGS: The patient is rotated to his left. There is a moderate-sized left pleural effusion. There are airspace opacities at left lung base. No pneumothorax. Cardiomegaly is noted. There is a tracheos mae tube in expected position. The nasogastric tube tip is beyond the inferior margin of the radiogr aph, but at least to the stomach. A right internal jugular central venous catheter is seen with tip a t the superior cavoatrial junction. IMPRESSION: 1. Central line tip at superior cavoatrial junction. 2. Stable moderate-sized left pleural effusion. 3. Airspace opacities at left lung base, consistent with atelectasis versus pneumonia. 4. Cardiomegaly. Reviewed, dictated and finalized at location A. IMPRESSION: 1. Central line tip at superior cavoatrial junction. 2. Stable moderate-sized left pleural effusion. 3. Airspace opacities at left lung base, consistent with atelectasis versus pne umonia. 4. Cardiomegaly.
--- NOTE | ~2021-10-03 | XR_ITS ---
EXAMINATION: XR pelvis 1-2V EXAM DATE: 10/03/2021 13:38 INDICATION: Fall, low back and right hip pain. TECHNIQUE: Pelvis frontal projection(s) obtained and reviewed. Comparison is made to prior examinatio n from 06/20/2020. FINDINGS: There is a peritoneal dialysis catheter. There is moderate symmetric bilateral hip primary osteoarthritis. Pelvic ring appears intact, no evidence of fracture. IMPRESSION: 1. Intact pelvic ring. 2. Moderate hip arthritis. Reviewed, dictated and finalized at location B.
--- NOTE | ~2021-10-03 | XR_ITS ---
EXAMINATION: XR chest 1V portable EXAM DATE: 10/24/2021 05:56 INDICATION: Acute respiratory failure, COPD exacerbation. TECHNIQUE: Portable AP frontal chest x-ray was obtained. Comparison is made to prior examination from 10/23/2021. FINDINGS: Tracheostomy tube. Feeding tube poorly visualized on this study. There is a right-sided IJ double-lumen dialysis catheter. No pneumothorax. Moderate left pleural effusion with adjacent multis egmental atelectasis. Cardiomegaly and pulmonary vascular congestion. Left-sided predominant edema or pneumonia. There are bony degenerative changes. Accounting for differences in technique, there is no significant interval change. IMPRESSION: 1. Cardiomegaly, congestion. 2. Moderate left pleural effusion, adjacent atelectasis. 3. Superimposed edema or pneumonia possible. Reviewed, dictated and finalized at location A.
--- NOTE | ~2021-10-03 | CT_ITS ---
EXAMINATION: CT diagnostic chest wo con DATE: 10/03/2021 14:36 INDICATION: Abnormal chest radiograph suggesting possible left hilar mass or adenopathy TECHNIQUE: Computed tomography (CT) of the chest was performed without intravenous contrast. Automate d exposure control and iterative reconstruction technique were employed. Exam dose: 923.28 mGy-cm to santiago exam DLP. COMPARISON: portable AP chest FINDINGS: There is cardiomegaly. Aortic and mitral valve calcification and/or replacement. Recommend clinical correlation. No pericardial effusion. Normal size and homogeneous density of the thyroid gland. No thoracic aortic aneurysm. 1.5 x 1.7 cm nodular anterior mediastinal soft tissue density. Differential diagnosis includes lympho ma, thymoma, teratoma, thyroid mass. No hilar or mediastinal mass lesion or lymphadenopathy is noted otherwise. There is mild left pleural effusion with left lower lung infiltrate/atelectasis. No obstructing endob ronchial lesion is evident. Diffuse idiopathic skeletal hyperostosis of the thoracic spine. There is depression of the anterior cortex of the upper body of the sternum and increased density of the subjacent medullary space of the sternum. This might be due to fracture. Metastatic bone lesion i s not excluded. Osteolytic change at the glenohumeral joints with probable Hill-Sachs deformities versus less likely osteonecrosis of both humeral heads. IMPRESSION: Mild left pleural effusion Left lower lobe infiltrate/atelectasis Cardiomegaly. Prominent coronary artery calcification Aortic and mitral valve calcifications or replacements Fracture versus osteosclerotic lesion at the upper body of the sternum; clinical correlation is advis ed. Radiographic been scan may be of benefit if clinically appropriate Reviewed, dictated and finalized at Location A. Reviewed, dictated and finalized at location A. IMPRESSION: Mild left pleural effusion Left lower lobe infiltrate/atelectasis Cardiomegaly. Prominent coronary artery calcification Aortic and mitral valve calcifications or replacements Fracture versus osteosclerotic lesion at the upper body of the sternum; clinica l correlation is advised. Radiographic been scan may be of benefit if clinicall y appropriate
--- NOTE | ~2021-10-03 | XR_ITS ---
EXAMINATION: XR knee LT min 4V EXAM DATE: 10/03/2021 13:39 INDICATION: Fall, left knee pain. TECHNIQUE: Left knee lateral, frontal AP, frontal PA tunnel, sunrise projections. Comparison is made to prior examination from 06/20/2020. FINDINGS: There is intact left knee arthroplasty hardware. Only small amount of joint fluid. There a re no acute fractures identified. Moderate scattered arteriosclerotic disease. Generalized soft tissu e swelling. IMPRESSION: Intact left knee arthroplasty. Reviewed, dictated and finalized at location B.
--- NOTE | ~2021-10-03 | XR_ITS ---
EXAMINATION: XR chest 1V portable EXAM DATE: 10/23/2021 05:38 INDICATION: Respiratory failure. TECHNIQUE: Portable AP frontal chest x-ray was obtained. Comparison is made to prior examination from 10/22/2021. FINDINGS: Tracheostomy tube. Feeding tube poorly visualized on this study. There is a right-sided IJ double-lumen dialysis catheter, with rather abrupt angulation at the skin but previously seen viv k inking no longer present. No pneumothorax. Probable moderate left pleural effusion. Cardiomegaly and pulmonary vascular congestion. Left-sided predominant edema or pneumonia. There are bony degenerative changes. IMPRESSION: 1. Cardiomegaly, congestion. 2. Moderate left pleural effusion. 3. Left greater than right edema or pneumonia. Reviewed, dictated and finalized at location A.
--- NOTE | ~2021-10-03 | CT_ITS ---
EXAMINATION: CT abdomen pelvis wo con DATE: 10/29/2021 10:37 INDICATION: Abdominal pain. TECHNIQUE: Computed tomography (CT) of the abdomen and pelvis was performed without intravenous contr ast. Automated exposure control and iterative reconstruction technique were employed. The dose-length product was 1705.68 mGy-cm. COMPARISON: CT abdomen and pelvis 10/09/2021 FINDINGS: The visualized portions of the lung bases demonstrate small right and moderate-sized left p leural effusions with dependent atelectasis. Cardiomegaly is noted. There are coronary artery calcifi cations. There are calcifications of aortic valve. There is a small pericardial effusion. There is a 2.3 x 1.3 cm mass in the anterior mediastinum. The liver, gallbladder, spleen, pancreas, and adrenal glands are normal. There is cortical thinning of the kidneys. There is diverticulosis of the colon w ithout evidence of diverticulitis. The appendix is normal. There is a moderate volume of ascites. A p eritoneal dialysis catheter is noted. There are healing bilateral anterior rib fractures. There is se goyo lumbar spondylosis. There is a chronic compression fracture of L1. There are bridging endplate o steophytes at multiple levels in the thoracic spine, consistent with diffuse idiopathic skeletal hype rostosis (DISH). IMPRESSION: 1. Small right and moderate-sized left pleural effusions. 2. Small pericardial effusion, worsened from 10/09/21. 3. 2.3 cm anterior mediastinal mass. The differential diagnosis includes thymoma and lymphoma. 4. Moderate volume of ascites with peritoneal dialysis catheter in expected position. Reviewed, dictated and finalized at location A. IMPRESSION: 1. Small right and moderate-sized left pleural effusions. 2. Small pericardial effusion, worsened from 10/09/21. 3. 2.3 cm anterior mediastinal mass. The differential diagnosis includes thymom a and lymphoma. 4. Moderate volume of ascites with peritoneal dialysis catheter in expected pos ition.
--- NOTE | ~2021-10-03 | XR_ITS ---
EXAMINATION: XR chest 1V portable DATE: 10/10/2021 05:21 INDICATION: Acute respiratory failure. TECHNIQUE: A single frontal view of the chest was obtained. COMPARISON: Chest single view 10/09/2021, chest CT 10/09/2021 FINDINGS: There are moderate-sized pleural effusions. There are airspace opacities in the mid and low er lung zones with a dependent predominance. No pneumothorax. Cardiomegaly is noted. The endotracheal tube tip is 4.8 cm above the sohail. A right internal jugular central venous catheter is seen with t ip in the superior vena cava. The nasogastric tube tip is beyond the inferior margin of the radiograp h, but at least to the stomach. IMPRESSION: 1. Stable moderate-sized pleural effusions. 2. Stable airspace opacities in the mid and lower lung zones with a dependent predominance, likely at electasis. 3. Cardiomegaly. Reviewed, dictated and finalized at location A. IMPRESSION: 1. Stable moderate-sized pleural effusions. 2. Stable airspace opacities in the mid and lower lung zones with a dependent p redominance, likely atelectasis. 3. Cardiomegaly.
--- NOTE | ~2021-10-03 | XR_ITS ---
EXAMINATION: XR chest 1V portable DATE: 10/31/2021 06:59 INDICATION: Tracheostomy repositioning. TECHNIQUE: A single frontal view of the chest was obtained. COMPARISON: Chest single view 10/29/2021 FINDINGS: The patient is rotated to his left. There is a moderate-sized left pleural effusion. There are airspace opacities in right lower lung zone and left mid and lower lung zones. No pneumothorax. C ardiomegaly is noted. There is a tracheostomy tube in expected position. A right internal jugular bj tral venous catheter is seen with tip at the superior cavoatrial junction. The nasoenteric tube tip i s beyond the inferior margin of the radiograph, but at least to the stomach. IMPRESSION: 1. Stable moderate-sized left pleural effusion. 2. Stable airspace opacities in right lower lung zone and left mid and lower lung zones, consistent w ith atelectasis versus pneumonia. 3. Cardiomegaly. Reviewed, dictated and finalized at location A. IMPRESSION: 1. Stable moderate-sized left pleural effusion. 2. Stable airspace opacities in right lower lung zone and left mid and lower beatriz ng zones, consistent with atelectasis versus pneumonia. 3. Cardiomegaly.
--- NOTE | ~2021-10-03 | XR_ITS ---
EXAMINATION: XR chest 1V portable DATE: 10/19/2021 05:24 INDICATION: Respiratory failure. TECHNIQUE: A single frontal view of the chest was obtained. COMPARISON: Chest single view 10/18/2021 FINDINGS: The patient is rotated to his left. There is a moderate sized left pleural effusion. There are mild airspace opacities in right lower lung zone. There are airspace opacities in all left lung z ones with a basilar predominance. No pneumothorax. Cardiomegaly is noted. There is a tracheostomy tub e in expected position. A right internal jugular central venous catheter is seen with tip in the supe rior vena cava. The nasogastric tube is not well visualized. IMPRESSION: 1. Airspace opacities in left lung and right lower lung zone with mild worsening on the left, consist ent with atelectasis versus pneumonia. 2. Stable moderate-sized left pleural effusion. 3. Cardiomegaly. Reviewed, dictated and finalized at location A. IMPRESSION: 1. Airspace opacities in left lung and right lower lung zone with mild worsenin g on the left, consistent with atelectasis versus pneumonia. 2. Stable moderate-sized left pleural effusion. 3. Cardiomegaly.
--- NOTE | ~2021-10-03 | XR_ITS ---
EXAMINATION: XR chest 1V portable DATE: 10/08/2021 05:35 INDICATION: Respiratory failure. TECHNIQUE: A single frontal view of the chest was obtained. COMPARISON: Chest single view 10/07/2021 FINDINGS: The lung volumes are small. There are airspace opacities in all lung zones bilaterally with a lower lung predominance. There are small right and moderate-sized left pleural effusions. No pneum othorax. Cardiomegaly is noted. The endotracheal tube tip is 3.7 cm above the sohail. The nasogastric tube tip is beyond the inferior margin of the radiograph, but at least to the stomach. A right inter nal jugular central venous catheter is seen with tip in the superior vena cava. IMPRESSION: 1. Small lung volumes and diffuse lung disease with worsening on the right, consistent with atelectas is versus pulmonary edema versus pneumonia. 2. Stable small right and moderate-sized left pleural effusions. 3. Cardiomegaly. Reviewed, dictated and finalized at location A. IMPRESSION: 1. Small lung volumes and diffuse lung disease with worsening on the right, con sistent with atelectasis versus pulmonary edema versus pneumonia. 2. Stable small right and moderate-sized left pleural effusions. 3. Cardiomegaly.
--- NOTE | ~2021-10-03 | CT_ITS ---
EXAMINATION: CT brain wo con, CT cervical spine wo con EXAM DATE: 10/03/2021 13:23 INDICATION: Fall, head injury. TECHNIQUE: Spiral CT of the head was performed without contrast. Axial, coronal and sagittal images were reviewed. Spiral CT of the cervical spine was performed without contrast. Axial images were rev iewed. Coronal and sagittal reformatted images were also reviewed. The dose-length product (DLP) fo r this examination was 605.33 (accession [id number]), 598.96 (accession [id number]) mGy-cm. The exposure was tailored according to patient size, and iterative reconstruction (ASIR) was used as additional dose reduction technique. Comparison is made to prior examination from 05/26/2020. FINDINGS: HEAD CT: There is no acute intraparenchymal hemorrhage. No evidence of intraparenchymal brain mass lesion. No evidence of acute infarction. There is mild cerebral atrophy and mild microangiopathy. There is no mass effect or midline shift. There is no obstructive hydrocephalus suspected. There are no extra-axial collections. There are no acute calvarial fractures. Patient has had left-sided ocu lar lens surgery. Small amount of left frontal scalp swelling. The visualized sinuses and mastoid a ir cells are well aerated. CERVICAL CT: There is no evidence of acute cervical fracture. The odontoid process is intact. Pre- dens space is normal. Prevertebral soft tissue is normal. There are no soft tissue abnormalities id entified. There is no disc space widening or traumatic vertebral body subluxation suspected. Advanc ed cervical spondylosis. A detailed level by level evaluation of spondylosis can be added as addendu m if requested. IMPRESSION: 1. No acute intracranial findings or cervical fracture. 2. Small left frontal scalp swelling. 3. Advanced cervical spondylosis. 4. Mild atrophy and microangiopathy. Reviewed, dictated and finalized at location B. IMPRESSION: 1. No acute intracranial findings or cervical fracture. 2. Small left frontal scalp swelling. 3. Advanced cervical spondylosis. 4. Mild atrophy and microangiopathy.
--- NOTE | ~2021-10-03 | XR_ITS ---
EXAMINATION: XR chest 1V portable DATE: 10/07/2021 05:37 INDICATION: Respiratory failure. TECHNIQUE: A single frontal view of the chest was obtained. COMPARISON: Chest single view 10/06/2021, chest CT 10/05/2021 FINDINGS: There is a moderate-sized left pleural effusion. There are airspace opacities in right lowe r lung zone and left mid and lower lung zones. No pneumothorax. Cardiomegaly is noted. The endotrache al tube tip is 3.8 cm above the sohail. The nasogastric tube is not well visualized. A right internal jugular central venous catheter is seen with tip in the superior vena cava. IMPRESSION: 1. Stable airspace opacities in right lower lung zone and left mid and lower lung zones, consistent w ith atelectasis versus pneumonia. 2. Stable moderate-sized left pleural effusion. 3. Cardiomegaly. Reviewed, dictated and finalized at location A. IMPRESSION: 1. Stable airspace opacities in right lower lung zone and left mid and lower beatriz ng zones, consistent with atelectasis versus pneumonia. 2. Stable moderate-sized left pleural effusion. 3. Cardiomegaly.
--- NOTE | ~2021-10-03 | US_ITS ---
EXAMINATION: US art doppler w press UE BI EXAM DATE: 10/17/2021 12:18 INDICATION: Mottled extremity. TECHNIQUE: Segmental pressures and plethysmographic and Doppler waveforms of the upper extremity litzy xander were obtained. There is no prior study for comparison. FINDINGS: Right and left brachial artery pressures of 89 mm Hg and 84 mm Hg, respectively, are concordant (norm al difference <= 30 mmHg). RIGHT: Right ulnar/brachial arterial Doppler ratio 0.76 (68 mmHg). Right radial/brachial arterial Doppler ratio 1.31 (117 mmHg). Right index finger 58 mmHg. The waveforms are biphasic. LEFT: Left ulnar/brachial arterial Doppler ratio 1.15 (97 mmHg). Left radial/brachial arterial ratio 2.06 (173 mmHg). Left index finger 68 mmHg. The waveforms are biphasic except for ulnar which is monophasic. IMPRESSION: Normal forearm brachial indices as above. Reviewed, dictated and finalized at location B.
--- NOTE | ~2021-10-03 | XR_ITS ---
EXAMINATION: XR chest 1V portable DATE: 10/06/2021 05:31 INDICATION: Respiratory failure. TECHNIQUE: A single frontal view of the chest was obtained. COMPARISON: Chest single view 10/05/2021, chest CT 10/05/2021 FINDINGS: The lung volumes are small. There is a moderate-sized left pleural effusion. There are airs pace opacities in the mid and lower lung zones, worst at left lung base. No pneumothorax. Cardiomegal y is noted. The endotracheal tube tip is 3.7 cm above the sohail. The nasogastric tube tip is beyond the inferior margin of the radiograph, but at least to the stomach. A right internal jugular central venous catheter is seen with tip in the superior vena cava. IMPRESSION: 1. Stable moderate-sized left pleural effusion. 2. Stable airspace opacities in the mid and lower lung zones, worst at left lung base, consistent wit h atelectasis versus pneumonia. 3. Cardiomegaly. Reviewed, dictated and finalized at location A. IMPRESSION: 1. Stable moderate-sized left pleural effusion. 2. Stable airspace opacities in the mid and lower lung zones, worst at left norma g base, consistent with atelectasis versus pneumonia. 3. Cardiomegaly.
--- NOTE | ~2021-10-03 | XR_ITS ---
EXAMINATION: XR chest 1V portable INDICATION: Respiratory failure TECHNIQUE: Portable AP chest at 0536 hours COMPARISON: 10/16/2021 FINDINGS: The endotracheal tube ends approximately 5.2 cm above the sohail. The nasogastric tube is f ollowed as far as the gastroesophageal junction. Its tip is beyond the inferior margin of the radiogr aph. A right internal jugular catheter ends with its tip in the proximal superior vena cava. Cardiome antionette is noted. A mild diffuse interstitial pattern is present which is worse since the comparison exa mination. There is small, stable left pleural effusion. No pneumothorax is identified. Left basilar a irspace opacities are stable. IMPRESSION: 1. Cardiomegaly with worsening pulmonary edema. 2. Small left pleural effusion with atelectasis versus pneumonia of the left lung base. Reviewed, dictated and finalized at location A. IMPRESSION: 1. Cardiomegaly with worsening pulmonary edema. 2. Small left pleural effusion with atelectasis versus pneumonia of the left beatriz ng base.
--- NOTE | ~2021-10-03 | XR_ITS ---
EXAMINATION: XR chest 1V portable INDICATION: Respiratory failure TECHNIQUE: Portable AP chest at 0454 hours COMPARISON: 10/12/2021 FINDINGS: The endotracheal tube ends approximately 4.0 cm above the sohail. The nasogastric tube is f ollowed as far as the stomach. Its tip is beyond the inferior margin of the radiograph. A right inter nal jugular catheter ends with its tip in the superior vena cava. There are are airspace opacities of the lung bases, left greater than right. Cardiomegaly is noted. No pneumothorax is identified. There is a stable left pleural effusion. There is mild diffuse interstitial pattern. IMPRESSION: 1. Cardiomegaly with mild pulmonary edema. 2. Stable bibasilar airspace opacities, consistent with atelectasis versus pneumonia. 3. Stable left pleural effusion. Reviewed, dictated and finalized at location A. IMPRESSION: 1. Cardiomegaly with mild pulmonary edema. 2. Stable bibasilar airspace opacities, consistent with atelectasis versus pneu monia. 3. Stable left pleural effusion.
--- NOTE | ~2021-10-03 | CT_ITS ---
EXAMINATION: CT chest abdomen pelvis wo con DATE: 10/05/2021 10:50 INDICATION: Cardiac arrest. TECHNIQUE: Computed tomography (CT) of the chest, abdomen, and pelvis was performed without intraveno us contrast. Automated exposure control and iterative reconstruction technique were employed. The dos e-length product was 1969.66 mGy-cm. COMPARISON: Chest CT 10/03/2021 FINDINGS: CHEST CT: There are small right and large left pleural effusions. There is dependent atelectasis bilaterally. C ardiomegaly is noted. There are coronary artery calcifications. There are calcifications of aortic va lve. No pericardial effusion. The endotracheal tube tip is above the sohail. A right internal jugular central venous catheter is seen with tip in the superior vena cava. The nasogastric tube tip is in t he stomach. There is a mass in the anterior mediastinum measuring 3.8 x 1.7 cm that measured 1.9 x 1. 6 cm on 10/03/21. There are old fracture deformities of the sternum and multiple ribs. There are acute fractures of left 2nd-6th ribs. There are bridging endplate osteophytes at multiple levels in the spi ne, consistent with diffuse idiopathic skeletal hyperostosis (DISH). ABDOMEN/PELVIS CT: The liver, gallbladder, spleen, pancreas, and adrenal glands are normal. There is mild atrophy of rig ht kidney. Left kidney is normal. A peritoneal dialysis catheter is noted. There is a small volume of ascites. There are no dilated loops of bowel. The appendix is not well visualized. There is calcifie d atherosclerosis of the aorta and many of the other arteries. There is fat stranding in the body wal l, likely edema. There is mild bilateral external iliac lymphadenopathy. Again seen is a compression fracture of L1 with 2/5 loss of height, likely subacute or chronic. There is severe lumbar spondylosi s. IMPRESSION: 1. Small right and large left pleural effusions. 2. Acute fractures of left second-sixth ribs. 3. 3.8 x 1.7 cm anterior mediastinal mass, increased from 1.9 x 1.6 cm on 10/03/21. This finding may be a combination of hematoma and a pre-existing mass such as thymoma or lymphoma. 5. Small volume of ascites with peritoneal dialysis catheter. 6. Mild bilateral external iliac lymphadenopathy, likely reactive. Reviewed, dictated and finalized at location E. IMPRESSION: 1. Small right and large left pleural effusions. 2. Acute fractures of left second-sixth ribs. 3. 3.8 x 1.7 cm anterior mediastinal mass, increased from 1.9 x 1.6 cm on 2. This finding may be a combination of hematoma and a pre-existing mass such a s thymoma or lymphoma. 5. Small volume of ascites with peritoneal dialysis catheter. 6. Mild bilateral external iliac lymphadenopathy, likely reactive.
--- NOTE | ~2021-10-03 | XR_ITS ---
EXAMINATION: XR chest 1V portable DATE: 10/26/2021 05:34 INDICATION: Acute respiratory failure. COPD exacerbation. TECHNIQUE: frontal view of the chest was obtained. COMPARISON: Chest radiograph dated 10/25/2021 FINDINGS: Tracheostomy tube in expected position at the thoracic inlet. Nasogastric tube extends below the lef t hemidiaphragm with distal tip collimated off the study. Large-bore dual-lumen tunneled right machine learning intern al jugular central venous catheter with distal tip near the superior cavoatrial junction. Persistent retrocardiac consolidation in the left lower lung zone consistent with small to moderate l eft pleural effusion and associated basilar atelectasis and/or pneumonia. Additional mild opacities i n the right infrahilar region. No pneumothorax or right-sided pleural effusion. Cardiomegaly. IMPRESSION: 1. Persistent [id number] left pleural effusion and associated atelectasis and/or pneumonia in the lower lung zone. 2. Mild right infrahilar opacities which could represent additional atelectasis or pneumonia. 3. Cardiomegaly. Reviewed, dictated and finalized at location A. IMPRESSION: 1. Persistent vlvyo-kx-[id number] left pleural effusion and associated atelectasi s and/or pneumonia in the lower lung zone. 2. Mild right infrahilar opacities which could represent additional atelectasis or pneumonia. 3. Cardiomegaly.
--- NOTE | ~2021-10-03 | XR_ITS ---
EXAMINATION: XR abdomen obstructive series DATE: 10/08/2021 08:28 INDICATION: Ileus versus small bowel obstruction TECHNIQUE: Frontal supine and upright views of the abdomen were obtained. COMPARISON: CT dated 10/05/2021 FINDINGS: Nasogastric tube with distal tip in the body the stomach. Distal tip of a central venous catheter is seen at the cephalad superior vena cava. There is additional moderate amount of gas and stool scatter ed throughout the colon. No dilated gas-filled loops of small bowel to suggest obstruction. No free i ntraperitoneal gas. Likely dialysis catheter coiled in the pelvis. Retrocardiac consolidation the lef t lower lung zone consistent with small bilateral pleural effusion and left lower lobar atelectasis a nd/or pneumonia. Additional small right pleural effusion with hazy opacity right costophrenic angle. Cardiomegaly. IMPRESSION: 1. No free intraperitoneal gas or dilated gas-filled loops of bowel to suggest obstruction. 2. Consolidation in the left lower lobe which could represent atelectasis and/or pneumonia. 3. Small bilateral pleural effusions. 4. Cardiomegaly. Reviewed, dictated and finalized at location B. IMPRESSION: 1. No free intraperitoneal gas or dilated gas-filled loops of bowel to suggest obstruction. 2. Consolidation in the left lower lobe which could represent atelectasis and/o r pneumonia. 3. Small bilateral pleural effusions. 4. Cardiomegaly.
--- NOTE | ~2021-10-03 | XR_ITS ---
EXAMINATION: XR chest 1V portable DATE: 10/29/2021 05:57 INDICATION: Respiratory failure. TECHNIQUE: A single frontal view of the chest was obtained. COMPARISON: Chest single view 10/28/2021 FINDINGS: The patient is rotated to his left. There is a moderate-sized left pleural effusion. There are airspace opacities in right lower lung zone and left mid and lower lung zones with a basilar pred ominance. No pneumothorax. Cardiomegaly is noted. There is a tracheostomy tube in expected position. A right internal jugular central venous catheter is seen with tip in the superior vena cava. The naso enteric tube tip is beyond the inferior margin of the radiograph, but at least to the stomach. IMPRESSION: 1. Stable moderate-sized left pleural effusion. 2. Stable airspace opacities in right lower lung zone and the left mid and lower lung zones, consiste nt with atelectasis versus pneumonia. 3. Cardiomegaly. Reviewed, dictated and finalized at location A. IMPRESSION: 1. Stable moderate-sized left pleural effusion. 2. Stable airspace opacities in right lower lung zone and the left mid and lowe r lung zones, consistent with atelectasis versus pneumonia. 3. Cardiomegaly.
--- NOTE | 2021-10-03 13:10 | ED.FALL ---
HPI - Fall General Chief Complaint: Fall Stated Complaint: Fall Time Seen by Provider: 10/03/21 12:57 Source: RN notes reviewed History of Present Illness HPI Narrative: Patient presents emergency department from home via EMS for fall. Patient states he is on on the stairs and tripped over the last year falling he states he struck his left knee and then his head at that time he notes a abrasion to his left forehead as well as pain in his head and neck he states he is on Eliquis states he was not able to get up on his own and he was had to come help get him up he denies any loss of consciousness he denies any chest pain shortness of breath abdominal pain nausea vomiting or any other symptoms Related Data Home Medications Medication Instructions Recorded Confirmed Eliquis 5 mg PO BID 04/06/20 10/03/21 allopurinol 100 mg PO DAILY 04/06/20 10/03/21 brimonidine 0.2 % OPHTHALMIC (EYE) BID 04/06/20 10/03/21 dorzolamide-timolol 22.3 ml OPHTHALMIC (EYE) BID 04/06/20 10/03/21 gabapentin 300 mg PO BID 04/06/20 10/03/21 insulin aspart U-100 [Novolog See Rx Instructions .ROUTE .COMPLEX 04/06/20 10/03/21 Flexpen U-100 Insulin] rosuvastatin 10 mg PO DAILY 04/06/20 10/03/21 alprazolam 0.25 mg PO BID PRN 05/24/20 10/03/21 duloxetine 60 mg PO DAILY 05/24/20 10/03/21 bumetanide 2 mg BID 06/20/20 10/03/21 sevelamer carbonate 800 mg TID 06/20/20 10/03/21 ergocalciferol (vitamin D2) 1,250 mcg PO WEEKLY 10/03/21 10/03/21 [Vitamin D2] fluconazole 100 mg PO DAILY 10/03/21 10/03/21 lisinopril 2.5 mg PO HS 10/03/21 10/03/21 Allergies Allergy/AdvReac Type Severity Reaction Status Date / Time shellfish derived Allergy Intermediate Unknown Verified 10/03/21 13:03 heparin Allergy Unknown Unknown Verified 10/03/21 13:03 iohexol Allergy Unknown Unknown Verified 10/03/21 13:03 [From contrast - CT, X-RAY] spironolactone Allergy Unknown Unknown Verified 10/03/21 13:03 [From Aldactone] Ejgnlqy-WFE-SwI Reductase Allergy Unknown Unknown Verified 10/03/21 13:03 Inhibitor [Mhlqhih-Nnr-Koq Reductase Inhibitor] Review of Systems Review of Systems: Gen.: Denies fevers or chills Eyes: Denies eye pain or visual change ENT: Denies congestion Respiratory: Denies shortness of breath or cough CV: Denies chest pain or palpitations GI: Denies abdominal pain nausea, emesis or diarrhea Musculoskeletal: See HPI Neuro: Denies numbness, tingling, weakness or focal weakness Skin: Reports abrasion Except as documented, all other systems reviewed and negative [facility] Past Medical History Medical History Acute kidney injury Amputation toe 2nd toe on the right Charcot's joint of foot Chronic anemia Chronic wound of extremity Coronary artery disease End-stage renal disease on hemodialysis Glaucoma Hyperlipidemia Hypertension Insulin dependent diabetes mellitus Ischemic cardiomyopathy Patient reports recent ejection fraction of about 35%. Osteoarthritis Paroxysmal atrial fibrillation Ventricular tachyarrhythmia Surgical History Surgical History History of bilateral knee arthroplasty History of cardiac catheterization (~2005) With history of stent to the LAD. History of implantable cardioverter-defibrillator (ICD) insertion With subsequent removal due to pocket infection. History of orthopedic surgery Right arm ORIF with hardware. History of tonsillectomy History of tracheostomy After lengthy hospitalization in 2018 for sepsis due to cellulitis. S/P dialysis catheter insertion Right chest Status post debridement Multiple debridements of bilateral lower leg wounds over the years. Family History Family History Mother Diabetes mellitus Acute myocardial infarction Hypertension Congestive heart failure Father Lung cancer Social History Social History (Reviewe
[2021-10-03 14:02] LABS: Glucose Point of Care 115 mg/dl (65-105)
--- NOTE | 2021-10-03 14:07 | PC.NURSE ---
Tech notifies RN that pt feeling slightly lightheaded. Tech takes pt blood sugar. 115
[2021-10-03] MEDS: TETANUS,DIPHTHERIA,AC PERTUSSIS ADULT (0.5 ML) BOOSTRIX IM (14:08)
--- NOTE | 2021-10-03 14:12 | ECG_ITS ---
Measurements Intervals [place] Rate: 40 P: ID: 0 QRS: -75 QRSD: 117 T: 127 QT: 521 QTc: 429 Interpretive Statements ATRIAL FIBRILLATION WITH SLOW VENTRICULAR RESPONSE POSSIBLE RIGHT VENTRICULAR CONDUCTION DELAY [RSR (QR) IN V1/V2] INFERIOR MYOCARDIAL INFARCTION , PROBABLY OLD [40+ ms Q WAVE AND/OR ST/T ABNORMALITY IN II/aVF] CANNOT RULE OUT ANTERIOR MYOCARDIAL INFARCTION , OF INDETERMINATE AGE [40+ ms Q WAVE IN I/aVL/V3-V6] NONSPECIFIC IVCD ABNORMAL ECG COMPARED TO ECG 05/25/2020 23:43:31 ATRIAL FIBRILLATION NOW PRESENT MYOCARDIAL INFARCT FINDING NOW PRESENT Electronically Signed On 10-03-2021 17:29:59 CDT by Claudio Jaimes M.D.
[2021-10-03 14:35] LABS: Basophils Absolute Auto 0.1 K/mm3 (0.0-0.1); Basophils Percent Auto 0.7 % (0.2-1.2); Eosinophils Absolute Auto 0.4 K/mm3 (0-0.3); Eosinophils Percent Auto 4.6 % (0-4.4); Hematocrit 28.5 % (42.0-52.0); Hemoglobin 9.7 g/dL (14.0-18.0); Immature Granulocyte Absolute 0.16 K/mm3 (0.00-0.031); Immature Granulocyte Percent A 1.8 % (0-0.5); Lymphocytes Absolute Auto 0.75 K/mm3 (0.9-3.2); Lymphocytes Percent Auto 8.6 % (18.3-44.2); Mean Corpuscular Hemoglobin 31.8 pg (26-34); Mean Corpuscular Volume 93.4 fl (80-100); Mean Platelet Volume 10.7 fl (7.4-10.4); Monocytes Absolute Auto 0.7 K/mm3 (0.1-0.6); Monocytes Percent Auto 7.9 % (2.6-8.5); Neutrophils Absolute Auto 6.7 K/mm3 (1.3-6.7); Neutrophils Percent Auto 76.4 % (45.5-73.1); Platelet Count Result 302 k/mm3 (150-375); Red Blood Count 3.05 M/mm3 (4.6-6.20); Red Cell Distribution Width 15.9 % (11.5-14.5); White Blood Count 8.7 K/mm3 (4.5-10.0)
[2021-10-03 14:46] LABS: Alanine Aminotransferase 14 U/L (4-50); Albumin Level 3.7 g/dL (3.5-5.1); Alkaline Phosphatase 96 U/L (38-126); Anion Gap 13 mmol/L (8-16); Aspartate Amino Transferase 20 U/L (17-59); Bilirubin,Total 0.6 mg/dL (0.2-1.3); Blood Urea Nitrogen 76 mg/dL (9-20); Calcium 7.6 mg/dL (8.4-10.2); Carbon Dioxide 25 mmol/L (22-30); Chloride 89 mmol/L (98-107); Estimated CRCL calculation 11 ml/min; Estimated Glomerular Filt Rate 7; Glucose 114 mg/dL (65-110); Potassium 5.8 mmol/L (3.4-5.0); Sodium 127 mmol/L (137-145)
[2021-10-03 14:51] LABS: INR 1.4; Prothrombin Time 16.8 Seconds (11.1-14.7)
[2021-10-03 14:52] LABS: Partial Thromboplastin Time 36.2 SECONDS (22.3-36.8)
[2021-10-03] MEDS: SODIUM CHLORIDE 0.9% IV 500 ML 999 ML IV CONT ×2 (14:53→16:27)
[2021-10-03 15:13] LABS: Troponin I 0.052 ng/mL (0.000-0.034)
[2021-10-03] MEDS: SODIUM ZIRCONIUM CYCLOSILICATE 10 GM POWD.PACK PO (16:27)
[2021-10-03 20:18] LABS: Anion Gap 12 mmol/L (8-16); Blood Urea Nitrogen 77 mg/dL (9-20); Carbon Dioxide 25 mmol/L (22-30); Chloride 89 mmol/L (98-107); Estimated CRCL calculation 12 ml/min; Estimated Glomerular Filt Rate 7; Glucose 157 mg/dL (65-110); Potassium 5.1 mmol/L (3.4-5.0); Sodium 126 mmol/L (137-145)
[2021-10-03 20:26] LABS: Glucose Point of Care 170 mg/dl (65-105)
--- NOTE | 2021-10-03 20:29 | ADMGEN ---
This patient, Rl Gomez Neto, was admitted to IMU Room 201-01. Patient/family oriented to hospital policies and general routines including ID bracelet, bed and alarms, visiting hours, pain management, procedures, bathroom and other care routines, personal items, smoking policy, room service/diet, and visiting hours. Information on how to activate the Rapid Response Team has been discussed. Patient/Family are encouraged to report perceived risks to care and to ask questions if they do not understand what they are told or what they should do.
[2021-10-03 20:38] LABS: Troponin I 0.046 ng/mL (0.000-0.034)
--- NOTE | 2021-10-03 20:38 | PM.IMHP ---
H&P: HPI History of Present Illness Date/Time: Patient was placed observation status for expected length of stay less than 23 hours for management, will plan to re-evaluate tomorrow for improvement. 10/03/21 20:38 Chief Complaint: Fall Narrative: Mr. Gomez is a 65-year-old gentleman who presented to emergency room after tripping over the last step of his stairs and fell and struck his knees and his head. Patient states he only reason he came to the emergency room was secondary to the fact that he is on Eliquis and he was worried that he may have bleeding in his brain. Patient denies any loss of conscious, lightheadedness, dizziness, syncopal, or near syncopal episodes. Patient denies any chest discomfort, shortness breath, or palpitations prior to this episode. Patient denies any abdominal pain, nausea, vomiting, constipation, or diarrhea. Patient states he is a peritoneal dialysis patient and recently they have been trying to remove excess fluid from him and they have been using a new dialysis state. Upon evaluation in emergency room patient was noted to be bradycardic and have an elevated potassium. After discussion with patient's clinical psychologist licensed was decided patient should be kept in the hospital overnight monitor. Per previous records patient does have a known history of coronary disease status post stent placement with ischemic cardiomyopathy. Patient states he did have an ICD/pacemaker previously but this had to be removed secondary to infection. Patient has a well-known history of chronic atrial fibrillation with slow ventricular rate and it has been discussed to possibly have another ICD/pacemaker placed, but this has not been done. Patient's spouse states that he recently was diagnosed with peritonitis and finished a long course of antibiotics and has recovered from that nicely. Patient does have wounds to bilateral lower extremities that are chronic and he [facility] regular basis for this. Review of Systems Review of Systems: A 12 point review of systems was completed patient all pertinent positive and negative per HPI the remainder are unremarkable. 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 Osteoarthritis Paroxysmal atrial fibrillation Ventricular tachyarrhythmia Surgical History Surgical History History of bilateral knee arthroplasty History of cardiac catheterization (~2005) With history of stent to the LAD. History of implantable cardioverter-defibrillator (ICD) insertion With subsequent removal due to pocket infection. History of orthopedic surgery Right arm ORIF with hardware. History of tonsillectomy History of tracheostomy After lengthy hospitalization in 2018 for sepsis due to cellulitis. S/P dialysis catheter insertion Right chest Status post debridement Multiple debridements of bilateral lower leg wounds over the years. Family History Family History Mother Diabetes mellitus Acute myocardial infarction Hypertension Congestive heart failure Father Lung cancer Social History Social History Social History: Surrogate decision maker: Jenna Gomez, spouse. Code status: Full code. Smoking status: Never smoker Second hand tobacco smoke exposure: No Alcohol intake: never Substance use: never Substance use type: does not use Additional living arrangements comments: Resides with his spouse in [place]. They black
[2021-10-03 21:54] LABS: Free T4 Free Thyroxine 0.91 ng/mL (0.78-2.19)
[2021-10-03 22:27] LABS: Appearance Peritoneal Fluid Clear (Clear); Color Peritoneal Fluid Colorless (Colorless); Source Peritoneal Fluid Peritoneal Fluid
[2021-10-03 22:28] LABS: Eosinophils Peritoneal Fluid 1 %; Lymphocytes Peritoneal Fluid 4 %; Neutrophils Peritoneal Fluid 1 % (0-25); Nucleated Cells Peritoneal Flu 109 /uL (0-500); RBC Peritoneal Fluid 82 /uL (0-100000)
[2021-10-03 22:29] LABS: Macrophages Peritoneal Fluid 2 %
[2021-10-03 22:30] LABS: Hepatitis B Surface Anti Res Negative
[2021-10-03 22:30] LABS: Mesothelial Cells Peritoneal Fluid 1 %
[2021-10-03 22:31] LABS: Monocytes Peritoneal Fluid 91 %
[2021-10-03] MEDS: APIXABAN 5 MG TABLET PO (23:43)
[2021-10-03] MEDS: ALPRAZolam (*CRX) 0.25 MG TABLET PO (23:43)
[2021-10-04] VITALS (16 sets, daily range): BP systolic 73–112; BP diastolic 42–60; PULSE 43–95; RESP 18–24; TEMP 36.3–36.6; O2SAT 93–100
[2021-10-04 01:14] LABS: Troponin I 0.039 ng/mL (0.000-0.034)
[2021-10-04 05:28] LABS: Basophils Absolute Auto 0.1 K/mm3 (0.0-0.1); Basophils Percent Auto 0.9 % (0.2-1.2); Eosinophils Absolute Auto 0.3 K/mm3 (0-0.3); Eosinophils Percent Auto 4.5 % (0-4.4); Hematocrit 27.3 % (42.0-52.0); Hemoglobin 8.9 g/dL (14.0-18.0); Immature Granulocyte Absolute 0.09 K/mm3 (0.00-0.031); Immature Granulocyte Percent A 1.3 % (0-0.5); Lymphocytes Absolute Auto 0.81 K/mm3 (0.9-3.2); Lymphocytes Percent Auto 11.7 % (18.3-44.2); Mean Corpuscular HGB Conc 32.6 g/dl (32-36); Mean Corpuscular Hemoglobin 31.4 pg (26-34); Mean Corpuscular Volume 96.5 fl (80-100); Mean Platelet Volume 11.2 fl (7.4-10.4); Monocytes Absolute Auto 0.6 K/mm3 (0.1-0.6); Monocytes Percent Auto 8.4 % (2.6-8.5); Neutrophils Absolute Auto 5.1 K/mm3 (1.3-6.7); Neutrophils Percent Auto 73.2 % (45.5-73.1); Platelet Count Result 272 k/mm3 (150-375); Red Blood Count 2.83 M/mm3 (4.6-6.20); Red Cell Distribution Width 16.1 % (11.5-14.5); White Blood Count 6.9 K/mm3 (4.5-10.0)
[2021-10-04 05:32] LABS: Alanine Aminotransferase 14 U/L (4-50); Albumin Level 3.4 g/dL (3.5-5.1); Alkaline Phosphatase 81 U/L (38-126); Anion Gap 11 mmol/L (8-16); Aspartate Amino Transferase 17 U/L (17-59); Bilirubin,Total 0.4 mg/dL (0.2-1.3); Blood Urea Nitrogen 74 mg/dL (9-20); Calcium 7.2 mg/dL (8.4-10.2); Carbon Dioxide 24 mmol/L (22-30); Chloride 91 mmol/L (98-107); Estimated CRCL calculation 12 ml/min; Estimated Glomerular Filt Rate 7; Glucose 157 mg/dL (65-110); Potassium 4.8 mmol/L (3.4-5.0); Sodium 126 mmol/L (137-145)
[2021-10-04] MEDS: SEVELAMER CARBONATE 800 MG TABLET BY MOUTH (08:41)
[2021-10-04] MEDS: allopurinoL 100 MG TABLET PO (08:41)
[2021-10-04] MEDS: GABAPENTIN 300 MG CAPSULE PO ×2 (09:27→20:44)
[2021-10-04] MEDS: DULoxetine HCL 60 MG CAPSULE.DR PO (09:27)
[2021-10-04] MEDS: BUMETANIDE 1 MG TABLET 2 MG BY MOUTH ×2 (09:27→12:38)
[2021-10-04] MEDS: ERGOCALCIFEROL 50,000 UNIT CAPSULE 50000 UNITS PO (09:27)
[2021-10-04] MEDS: APIXABAN 5 MG TABLET PO ×2 (09:28→20:44)
[2021-10-04] MEDS: DORZOLAMIDE/TIMOLOL OPHTH SOL 10 ML BOTTLE 22.3 DROP EACH EYE (09:28)
[2021-10-04] MEDS: BRIMONIDINE TARTRATE 0.2% OP SOLN 5 ML BTL 1 DROP EACH EYE ×2 (09:28→20:44)
--- NOTE | 2021-10-04 09:58 | PM.IMPN ---
Progress Note: A&P Assessment and Plan (1) Acute hyperkalemia: Code(s): E87.5 - Hyperkalemia Status: Acute Assessment and Plan: Nephrology recommended patient receive Lokelma 10 g x1. Patient did receive medication will monitor potassium level closely. Continue peritoneal dialysis pending nephrology evaluation (2) Chronic kidney failure: Code(s): N18.9 - Chronic kidney disease, unspecified Status: Acute Assessment and Plan: Nephrology has been consult and do appreciate further recommendations. Will defer all recommendations for dialysis orders to Nephrology. (3) Bradycardia: Code(s): R00.1 - Bradycardia, unspecified Status: Acute Assessment and Plan: Patient has chronic atrial fibrillation with a slow ventricular rate and is asymptomatic. It has been discussed that patient may need a pacemaker/ICD placed but at this time patient's clinical support tech at [facility] is not decided to place another device. Patient to follow-up with his clinical support tech as an outpatient. Probable discharge on event monitor (4) Community acquired pneumonia: Code(s): J18.9 - Pneumonia, unspecified organism Status: Acute Assessment and Plan: Patient's CT scan shows a left pleural effusion with left infiltrates. Patient has been placed on azithromycin and Rocephin will continue with these antibiotics. Follow blood culture and re-evaluate in a.m.. Subjective Date/time seen: 10/04/21 09:58 Interval history: Narrative: Mr. Gomez is a 65-year-old gentleman who presented to emergency room after tripping over the last step of his stairs and fell and struck his knees and his head. Patient states he only reason he came to the emergency room was secondary to the fact that he is on Eliquis and he was worried that he may have bleeding in his brain. Patient denies any loss of conscious, lightheadedness, dizziness, syncopal, or near syncopal episodes. Patient denies any chest discomfort, shortness breath, or palpitations prior to this episode. Patient denies any abdominal pain, nausea, vomiting, constipation, or diarrhea. Patient states he is a peritoneal dialysis patient and recently they have been trying to remove excess fluid from him and they have been using a new dialysis state. Upon evaluation in emergency room patient was noted to be bradycardic and have an elevated potassium. Of patient has episodes of bradycardia patient also has recent history of peritonitis completed course of antibiotics and still has lower extremity ulcer Patient has history of AICD which was removed due to infection, per patient there was plan to for possible inserting another AICD in the future. Patient feels better today Patient denies fever headache chest pain I am seeing the patient for pneumonia Exam Narrative: Alert Chest decreased air entry bilateral Abdomen nontender nondistended CVS S1 + S2 Lower positive lower extremity ulcer Objective Data Vital Signs Vital Signs: Vital Signs - 24 hr 10/03/21 12:59 10/03/21 14:13 10/03/21 16:31 Temperature Pulse Rate 50 L 39 L 51 L Respiratory Rate 18 15 16 Blood Pressure 93/40 L 88/46 L 96/55 L Blood Pressure [Right Arm] Pulse Oximetry 100 100 97 10/03/21 18:42 10/03/21 19:50 10/03/21 20:00 Temperature 97.3 F L Pulse Rate 47 L 48 L 47 L Respiratory Rate 18 20 Blood Pressure 104/43 L 102/52 L Blood Pressure [Right Arm] Pulse Oximetry 92 100 10/03/21 21:15 10/03/21 21:18 10/03/21 22:00 Temperature 97.6 F 97.6 F Pulse Rate 49 L 49 L Respiratory Rate 16 16 Blood Pressure 103/54 L Blood Pressure [Right Arm] 103/54 L Pulse Oximetry 99 10/03/21 23:12 10/04/21 00:00 10/04/21 02:00 Temperature 97.6 F Pulse Rate 52 L 44 L 43 L Respiratory Rate 22 H Blood Pressure 115/67 Blood Pressure [Right Arm] Pulse Oximetry 100 10/04/21 04:00 10/04/21 06:00 10/04/21 08:00 Temperature 97.4 F L 97.4 F L Pulse Rate 48
[2021-10-04 12:35] LABS: Glucose Point of Care 178 mg/dl (65-105)
--- NOTE | 2021-10-04 12:47 | P.CONNP_ITS ---
Assessment and Plan Assessment and plan (1) End-stage renal disease (ESRD): Code(s): N18.6 - End stage renal disease Status: Acute Assessment and Plan: * continue CCPD treatment while hospitalized * follow electrolytes, volume status, and clearance (2) Status post fall: Code(s): Z91.81 - History of falling Status: Acute Assessment and Plan: * appears more mechanical * ambulation as tolerated * PT/OT as needed (3) Hyperkalemia: Code(s): E87.5 - Hyperkalemia Status: Acute Assessment and Plan: * normally, by outpatient labs, his potassium is normal range * he does mention increased banana intake due to LE cramps/ charley horses * corrected with medical management and dialysis * follow trend (4) Hyponatremia: Code(s): E87.1 - Hypo-osmolality and hyponatremia Status: Acute Assessment and Plan: * a bit lower than what he normally runs (135 - 136) * possibly exacerbated pneumonia(?) * follow trend for now (5) Hypotension: Code(s): I95.9 - Hypotension, unspecified Status: Acute Assessment and Plan: * possibly due to more aggressive ultrafiltration recently(?) * follow trend of hemodynamics (6) Bradycardia: Code(s): R00.1 - Bradycardia, unspecified Status: Chronic Assessment and Plan: * apparently a chronic issue at baseline * Cardiology consultation (7) Community acquired pneumonia: Code(s): J18.9 - Pneumonia, unspecified organism Status: Acute Assessment and Plan: * as noted by admission imaging * no other signs/symptoms noted * follow culture data * on antibiotics (8) Anemia: Code(s): D64.9 - Anemia, unspecified Status: Chronic Assessment and Plan: * due to ESRD and possibly acute illness * Epogen 3x/week while hospitalized * follow trend of H/H Would not be opposed to discharge from renal perspective if otherwise medically stable Will continue to follow. History of Present Illness Reason for Consult Consult date: 10/04/21 Reason for consult: end stage renal disease (on peritoneal dialysis) Chief Complaint Chief complaint: Hyperkalemia/chronic renal failure/community acqui History of Present Illness Narrative: The patient is a 65-year-old male with an extensive past medical history as outlined below who presented to [facility] Emergency room via EMS following a fall yesterday. The patient stated that he tripped over the last step of his staircase and fell to his knees and apparently struck his head. He otherwise felt okay following the fall and did not have any other neurological sequelae. However as his had difficulty getting him up, she called EMS for assistance. As he is known to be on Eliquis there was some concern that other issues/problems with bleeding could be present that may not be noted on external physical exam so he was recommended to go to the emergency room for further imaging and evaluation and so he did. He otherwise denies any other symptoms with regard to loss of co nsciousness, lightheadedness, dizziness, syncope, or vertigo. Workup and evaluation emergency room demonstrated the patient be relatively hypotensive in association with bradycardia. Routine blood test demonstrated labs consistent with his known history of end-stage renal disease although his potassium was somewhat higher than normal in association with mild hyponatremia. He did read receive a fluid bolus in the emergency room which improved as of
--- NOTE | 2021-10-04 12:47 | PM.CNNEP ---
Assessment and Plan Assessment and plan (1) End-stage renal disease (ESRD): Code(s): N18.6 - End stage renal disease Status: Acute Assessment and Plan: continue CCPD treatment while hospitalized follow electrolytes, volume status, and clearance (2) Status post fall: Code(s): Z91.81 - History of falling Status: Acute Assessment and Plan: appears more mechanical ambulation as tolerated PT/OT as needed (3) Hyperkalemia: Code(s): E87.5 - Hyperkalemia Status: Acute Assessment and Plan: normally, by outpatient labs, his potassium is normal range he does mention increased banana intake due to LE cramps/ charley horses corrected with medical management and dialysis follow trend (4) Hyponatremia: Code(s): E87.1 - Hypo-osmolality and hyponatremia Status: Acute Assessment and Plan: a bit lower than what he normally runs (135 - 136) possibly exacerbated pneumonia(?) follow trend for now (5) Hypotension: Code(s): I95.9 - Hypotension, unspecified Status: Acute Assessment and Plan: possibly due to more aggressive ultrafiltration recently(?) follow trend of hemodynamics (6) Bradycardia: Code(s): R00.1 - Bradycardia, unspecified Status: Chronic Assessment and Plan: apparently a chronic issue at baseline Cardiology consultation (7) Community acquired pneumonia: Code(s): J18.9 - Pneumonia, unspecified organism Status: Acute Assessment and Plan: as noted by admission imaging no other signs/symptoms noted follow culture data on antibiotics (8) Anemia: Code(s): D64.9 - Anemia, unspecified Status: Chronic Assessment and Plan: due to ESRD and possibly acute illness Epogen 3x/week while hospitalized follow trend of H/H Would not be opposed to discharge from renal perspective if otherwise medically stable Will continue to follow. History of Present Illness Reason for Consult Consult date: 10/04/21 Reason for consult: end stage renal disease (on peritoneal dialysis) Chief Complaint Chief complaint: Hyperkalemia/chronic renal failure/community acqui History of Present Illness Narrative: The patient is a 65-year-old male with an extensive past medical history as outlined below who presented to [facility] Emergency room via EMS following a fall yesterday. The patient stated that he tripped over the last step of his staircase and fell to his knees and apparently struck his head. He otherwise felt okay following the fall and did not have any other neurological sequelae. However as his had difficulty getting him up, she called EMS for assistance. As he is known to be on Eliquis there was some concern that other issues/problems with bleeding could be present that may not be noted on external physical exam so he was recommended to go to the emergency room for further imaging and evaluation and so he did. He otherwise denies any other symptoms with regard to loss of consciousness, lightheadedness, dizziness, syncope, or vertigo. Workup and evaluation emergency room demonstrated the patient be relatively hypotensive in association with bradycardia. Routine blood test demonstrated labs consistent with his known history of end-stage renal disease although his potassium was somewhat higher than normal in association with mild hyponatremia. He did read receive a fluid bolus in the emergency room which improved as of blood pressure but his bradycardia persisted. He received medical management for his hyperkalemia in the form of locale in a which improved his potassium level as noted by his a.m. labs today. Given the fact that he was on Eliquis, numerous imaging studies were done to rule out any other issue or problem following the fall which was essentially negative aside from the fact that the CT scan of his chest showed a questionable infi
[2021-10-04] MEDS: SEVELAMER CARBONATE 800 MG TABLET 1600 MG BY MOUTH ×2 (13:27→17:41)
--- NOTE | 2021-10-04 13:43 | PM.CNCAR ---
Assessment and Plan Assessment and plan (1) Persistent atrial fibrillation: Code(s): I48.19 - Other persistent atrial fibrillation Status: Acute Assessment and Plan: Atrial fibrillation is not new, chronic as well as his bradycardia. This has been well documented and addressed at prior hospitalizations. He has close follow-up with his steam trap man at [facility]. Discussions and potential plans for pacemaker implantation likely leaflets have already taken place. Lead this pacemaker implantation is not performed at this institution. No further workup indicated at this time. Patient is hemodynamically stable, asymptomatic with regards to his bradycardia. Avoid AV miles blocking agents. Continue anticoagulation to reduce embolic stroke risk. From a cardiac perspective patient may be discharged home to follow up with his steam trap man. Disposition per primary service. (2) Bradycardia: Code(s): R00.1 - Bradycardia, unspecified Status: Acute Assessment and Plan: As above. Asymptomatic, chronic. This is indicative of underlying significant conduction system disease but no acute intervention warranted or recommended this hospitalization. (3) Ischemic cardiomyopathy: Code(s): I25.5 - Ischemic cardiomyopathy Status: Acute Assessment and Plan: Stable, chronic heart failure with reduced ejection fraction reasonably compensated. Volume management with Nephrology and peritoneal dialysis. Continue oral diuretics. Follow up with his steam trap man as scheduled as an outpatient. (4) End-stage renal disease (ESRD): Code(s): N18.6 - End stage renal disease Status: Acute Assessment and Plan: Peritoneal dialysis per Nephrology. (5) Community acquired pneumonia: Code(s): J18.9 - Pneumonia, unspecified organism Status: Acute Assessment and Plan: Management per primary service with antibiotics as appropriate. (6) Acute hyperkalemia: Code(s): E87.5 - Hyperkalemia Status: Acute Assessment and Plan: Per Nephrology, resolved. (7) Chronic anticoagulation: Code(s): Z79.01 - MCFP (current) use of anticoagulants Status: Acute Assessment and Plan: Continue Eliquis. Monitor for bleeding. Ambulate with caution. (8) Status post fall: Code(s): Z91.81 - History of falling Status: Acute Assessment and Plan: PT OT eval. Management per primary service. History of Present Illness History of Present Illness Consult date/time: Date of service: 10/04/21 13:43 Cardiology consultation at the request of Lucero Lang of the [facility] service for opinion regarding atrial fibrillation with slow ventricular response Requesting physician: Lucero Lang, [employer] Consult reason: atrial fibrillation Reason For Visit: Hyperkalemia/chronic renal failure/community acqui Narrative: Patient is a very pleasant yet complicated 65-year-old gentleman a past medical history significant for end-stage renal disease on peritoneal dialysis, history of persistent atrial fibrillation with slow ventricular response and sick sinus syndrome, history of CAD with prior myocardial infarction, ischemic cardiomyopathy with prior ICD explanted secondary to infection 2015, chronic heart failure with reduced ejection fraction, type 2 diabetes mellitus, hypertension, hyperlipidemia who presents to the emergency department after getting his foot caught in the carpet on the steps in his garage having tripped falling forward hitting his knee on the ground and his head on a turkey fryer. No associated loss of consciousness. He denies lightheadedness or dizziness contribute to this fall. He is adamant this was a careless mechanical fall but he presented to the ER at the request of EMS as he is on systemic anticoagulation to exclude head bleed. CT head without acute intracranial hemorrhage. Patient has chronic shortness of breath given
[2021-10-04] MEDS: SOD HYPOCHLORITE 1/4 STRENGTH 473 ML 1 APPLIC TOPICAL (15:29)
[2021-10-04] MEDS: SILVER SULFADIAZINE 1% CR 50 GM JAR (*BKC) 1 APPLIC TOPICAL (16:02)
[2021-10-04] MEDS: MUPIROCIN 2% OINT 22 GM TUBE 1 APPLIC TOPICAL (16:02)
[2021-10-04] MEDS: ALPRAZolam (*CRX) 0.25 MG TABLET PO (16:04)
[2021-10-04 16:13] LABS: Glucose Point of Care 136 mg/dl (65-105)
[2021-10-04] MEDS: DORZOLAMIDE/TIMOLOL OPHTH SOL 10 ML BOTTLE 1 DROP EACH EYE (20:43)
[2021-10-04] MEDS: lisinopriL 2.5 MG TABLET PO (20:44)
[2021-10-04] MEDS: diphenhydrAMINE HCl CAP 25 MG CAPSULE 50 MG PO (20:44)
[2021-10-04] MEDS: ROSUVASTATIN 10 MG TABLET PO (20:44)
[2021-10-04 20:50] LABS: Glucose Point of Care 146 mg/dl (65-105)
--- NOTE | 2021-10-04 23:08 | PM.IMPN ---
Progress Note: A&P Assessment and Plan (1) Cardiac arrest: Code(s): I46.9 - Cardiac arrest, cause unspecified Status: Acute Assessment and Plan: PEA arrest Currently on ventilator support Continuous telemetry Trending troponins Cardiology consult (2) End-stage renal disease on peritoneal dialysis: Code(s): N18.6 - End stage renal disease; Z99.2 - Dependence on renal dialysis Status: Acute Assessment and Plan: Nephrology consulted Patient has been doing his peritoneal dialysis (3) Acute respiratory failure with hypoxia: Code(s): J96.01 - Acute respiratory failure with hypoxia Status: Acute Assessment and Plan: Secondary to cardiac arrest On ventilator support (4) Lung infiltrate: Code(s): R91.8 - Other nonspecific abnormal finding of lung field Status: Acute Assessment and Plan: Patient started on vancomycin and Zosyn Cultures in progress Subjective Date/time seen: 10/04/21 23:08 Unresponsiveness Review of Systems Review of Systems: Unable to obtain ROS unobtainable: Yes unobtainable due to medical condition (Cardiac arrest) Exam Narrative: Unresponsive. Undergoing chest compressions. Const: General: other (Unresponsive CPR in progress) Nutritional Appearance: obese morbidly obese Orientation/consciousness: Other orientation findings (Unresponsive) HENMT: Head: normal to inspection, normocephalic and atraumatic Mouth: Yes dry mucous membranes Eyes: General: appearance normal, both eyes and all related structures Sclera: sclerae normal Pupils: Equal, round and reactive pupils present, Pupils not reactive bilaterally and Pupil size comments (8 mm) Neck: Neck: full ROM, no lymphadenopathy and no JVD Thyroid: thyroid normal Lymphatic: no lymphadenopathy noted Resp: Effort & Inspection: other (Agonal breathing) Cardio: Jugular venous distension: no JVD Other: Pulseless electrical activity GI: Inspection: distended and obesity GI Palp: Yes Soft to palpation and Yes No hepatosplenomegaly present : General: Yes deferred Skin: Rashes: no rashes Wounds: no wounds Neuro: General: other (Unresponsive) Extrem: General: edema bilateral Objective Data Vital Signs Vital Signs: Vital Signs - 24 hr 10/03/21 23:12 10/04/21 00:00 10/04/21 02:00 Temperature 97.6 F Pulse Rate 52 L 44 L 43 L Respiratory Rate 22 H Blood Pressure 115/67 Pulse Oximetry 100 10/04/21 04:00 10/04/21 06:00 10/04/21 08:00 Temperature 97.4 F L 97.4 F L Pulse Rate 48 L 49 L 45 L Respiratory Rate 22 H 18 Blood Pressure 95/47 L 101/43 L Pulse Oximetry 100 93 10/04/21 09:00 10/04/21 10:00 10/04/21 12:00 Temperature 97.5 F L 97.9 F Pulse Rate 55 L 52 L 46 L Respiratory Rate 20 18 Blood Pressure 100/42 L 111/53 L Pulse Oximetry 93 10/04/21 14:00 10/04/21 16:00 10/04/21 20:00 Temperature 97.4 F L 97.6 F Pulse Rate 53 L 59 L 51 L Respiratory Rate 20 20 Blood Pressure 102/59 L 112/56 L Pulse Oximetry 98 93 10/04/21 22:51 Temperature 97.6 F Pulse Rate 63 Respiratory Rate 24 H Blood Pressure 73/60 L Pulse Oximetry 100 Intake/Output Intake/Output: Intake & Output 10/01/21 10/02/21 10/03/21 10/04/21 23:59 23:59 23:59 23:59 Intake Total 550 2040 Output Total 2209 Balance 550 -169 Meds/Results Medications: Active Medications Generic Name Dose Route Start Last Admin Trade Name Yazmin PRN Reason Stop Dose Admin Allopurinol 100 mg 10/04/21 08:00 10/04/21 08:41 Allopurinol 100 Mg Tablet PO 100 mg DAILY@0800 CHELSEY Administration Alprazolam 0.25 mg 10/03/21 23:21 10/04/21 16:04 Alprazolam (*Crx) 0.25 Mg Tablet PO 0.25 mg BID PRN Administration Anxiety Apixaban 5 mg 10/04/21 21:00 10/04/21 20:44 Apixaban 5 Mg Tablet PO 5 mg Q12H CHELSEY Administration Brimonidine Tartrate 1 drop 10/04/21 21:00 10/04/21 20:44 Brimonidine Tartrate 0.2% Op Soln 5 Ml Btl EAC
--- NOTE | 2021-10-04 23:08 | PDCODEBLUE ---
Code Blue Note Code Blue Note Time Arrived at Code Blue: 2145 Initial Rhythm on Arrival: PEA Airway Management: Pt being bagged on arrival Chest Compressions: In process on arrival to bedside Result of Code Blue: Pt transferred to ICU Cardiac Rhythm Post Code: JUNCTIONAL Code Blue Summary: INITIAL RHYTHM WAS PULSELESS ELECTRICAL ACTIVITY. PATIENT RECEIVED A TOTAL OF 9 MG OF EPINEPHRINE PATIENT RECEIVED SEVERAL AMPS OF BICARB AND CALCIUM CHLORIDE ROSC WAS ACHIEVED THEN PATIENT TRANSFERRED TO THE INTENSIVE CARE UNIT CO DURATION WAS ROUGHLY 50 MINUTES
--- NOTE | 2021-10-04 23:19 | PC.NURSE ---
RN approaching pt's room around 2145 to give pt maalox for c/o nause and abd cramping when pt called out for help. RN entered room to find pt diagonal in bed trying to get up and grunting. Called rapid response then pt became unresponsive and ramón colón was called.
[2021-10-04] MEDS: NOREPINEPHRINE 8 MG/D5W 250 ML 8 MG/250 ML BAG 9.38 MG IV CONT (23:41)
[2021-10-04] MEDS: MIDAZOLAM 100MG/NS 100ML(*CRX) 100 MG/100 ML BAG IV CONT (23:43)
[2021-10-04] MEDS: FENTANYL 2,500MCG/NS250ML(*CRX 2,500 MCG/250 ML BAG IV CONT (23:47)
[2021-10-04 23:48] LABS: Hemoglobin 10.2 g/dL (14.0-18.0); Mean Corpuscular HGB Conc 31.9 g/dl (32-36); Mean Corpuscular Hemoglobin 31.6 pg (26-34); Mean Corpuscular Volume 99.1 fl (80-100); Mean Platelet Volume 12.4 fl (7.4-10.4); Platelet Count Result 307 k/mm3 (150-375); Red Blood Count 3.23 M/mm3 (4.6-6.20); Red Cell Distribution Width 16.9 % (11.5-14.5); White Blood Count 20.9 K/mm3 (4.5-10.0)
[2021-10-04 23:52] LABS: Alveolar/Arterial O2 Gradient 235.7 mmHg; Base Excess ABG -6.4 mEq/l (+/-2.0); Carboxyhemoglobin 0.3 % THb (0-2.0); Fractional Inspired Oxygen 100 %; HCO3 ABG 19.3 mEq/l (22.0-26.0); Methemoglobin ABG 0.3 %THb (0-1.5); Oxygen Content ABG 17.3 %vol (16.0-22.0); Oxygen Saturation ABG 99.8 % (95.0-100.0); Oxyhemoglobin 98.6 % THb (90.0-100.0); PCO2 ABG 38.7 mmHg (35.0-45.0); PO2 ABG 438.6 mmHg (80.0-100.0); PO2 FiO2 Ratio Arterial Blood 4.39 %; Reduced Hemoglobin 0.8 %THb (0-5.0); Total Hemoglobin 11.6 g/dL (12.0-18.0); pH ABG 7.315 (7.350-7.450)
[2021-10-04 23:53] LABS: Arterial Blood Gas PEEP 5 cmH2O; Arterial Blood Gas Tidal Volume 500 ml; Arterial Blood Gas Vent Mode CMV; Arterial Blood Gas Ventilator rate 18 /MIN; Device VENTILATOR; Modified Allen's Test Pass; Site Drawn LEFT RADIAL
[2021-10-05] VITALS (43 sets, daily range): BP systolic 99–113; BP diastolic 56–72; PULSE 43–73; RESP 16–22; TEMP 36.4–37.3; O2SAT 91–100
[2021-10-05 00:01] LABS: Alanine Aminotransferase 16 U/L (4-50); Albumin Level 3.5 g/dL (3.5-5.1); Alkaline Phosphatase 113 U/L (38-126); Anion Gap 18 mmol/L (8-16); Aspartate Amino Transferase 26 U/L (17-59); Bilirubin,Total 0.5 mg/dL (0.2-1.3); Blood Urea Nitrogen 80 mg/dL (9-20); Calcium 9.4 mg/dL (8.4-10.2); Carbon Dioxide 21 mmol/L (22-30); Chloride 87 mmol/L (98-107); Estimated CRCL calculation 12 ml/min; Estimated Glomerular Filt Rate 7; Glucose 296 mg/dL (65-110); Magnesium 2.6 mg/dL (1.6-2.3); Phosphorus 11.1 mg/dL (2.5-4.5); Potassium 4.6 mmol/L (3.4-5.0); Sodium 126 mmol/L (137-145)
[2021-10-05 00:07] LABS: Glucose Point of Care 159 mg/dl (65-105)
[2021-10-05 00:07] LABS: Lactic Acid Reflex 6.6 mmol/L (0.7-2.1)
[2021-10-05 00:15] LABS: Troponin I 0.093 ng/mL (0.000-0.034)
[2021-10-05 00:17] LABS: Band Neutrophils Percent 8 % (0-6); Lymphocytes Absolute Manual 2.09 K/mm3 (1.1-4.5); Lymphocytes Percent Manual 10 % (18-44); Neutrophils Absolute Manual 16.09 K/mm3 (1.3-6.7); Neutrophils Percent Manual 69 % (46-73); Total Cells Counted 100
[2021-10-05 00:18] LABS: Anisocytosis 1+ (NORMAL); Eosinophils Absolute Manual 0.83 K/mm3 (0.02-0.5); Eosinophils Percent Manual 4 % (0-4); Monocytes Absolute Manual 1.88 K/mm3 (0.1-0.90); Monocytes Percent Manual 9 % (3-9)
[2021-10-05 00:19] LABS: Platelet Estimate Adequate (Adequate)
[2021-10-05] MEDS: ROCURONIUM BROMIDE 50 MG/5 ML VIAL 80 MG IV PUSH (00:42)
[2021-10-05 02:46] LABS: Reflex Lactic Acid Yes or No Add Lactic
[2021-10-05 04:17] LABS: Lactic Acid 1.9 mmol/L (0.7-2.1)
--- NOTE | 2021-10-05 05:13 | P.PCNBED_ITS ---
Procedures Central Line Placement Right IJ: Central Line Date: 10/05/21 Central Line Time: 01:30 Discussed w/ the patient/family/POA,the placement of a central venous catheter, including its clinical necessity/indication & associated potential risks, benifits and alternatives.: Yes The patient/family/POA understand(s) and acknowledge(s) the need to proceed with central venous catheter insertion as an important element of the patient's clinical management.: Yes Performed Emergently - Given emergent patient condition, temporal constraints may have precluded informed consent.: Yes Time Out Performed: Yes Patient Position: trendelenburg Provider Prep: mask, sterile gown, sterile gloves, Max. sterile barrier precautions, cap and hand hygiene with conventional soap/water or alcohol based hand rub Central line prep: 2% Chlorhexidine scrub Sterile US Technique with sterile gel/sterile probe covers: Yes Central line lumen inserted: triple [place]er: 15 Length (cm): 15 Post Procedure: sutured in place Post procedure x-ray: tip of catheter in good position and no pneumothorax seen Patient tolerated procedure: well Complications: none
[2021-10-05 05:17] LABS: Alveolar/Arterial O2 Gradient 302.5 mmHg; Base Excess ABG -2.3 mEq/l (+/-2.0); Carboxyhemoglobin 0.3 % THb (0-2.0); Fractional Inspired Oxygen 70 %; HCO3 ABG 21.3 mEq/l (22.0-26.0); Methemoglobin ABG 0.2 %THb (0-1.5); Oxygen Content ABG 16.2 %vol (16.0-22.0); Oxygen Saturation ABG 99.1 % (95.0-100.0); PCO2 ABG 32.8 mmHg (35.0-45.0); PO2 ABG 161.3 mmHg (80.0-100.0); Reduced Hemoglobin 1.5 %THb (0-5.0); Total Hemoglobin 11.5 g/dL (12.0-18.0)
[2021-10-05 05:18] LABS: Arterial Blood Gas PEEP 5 cmH2O; Arterial Blood Gas Tidal Volume 500 ml; Arterial Blood Gas Vent Mode CMV; Arterial Blood Gas Ventilator rate 18 /MIN; Device VENTILATOR; Modified Allen's Test Pass; Site Drawn LEFT RADIAL
--- NOTE | 2021-10-05 06:40 | ED.PROCEDURE ---
Procedures Intubation Intubation Date: 10/04/21 Intubation Time: 23:08 Consent: Emergent intubation during CODE BLUE. A pre-procedural Time-Out was completed immediately before starting the procedure and confirmed: Patient Identification, Site, Procedure, Patient Position and the Availability of Requisite Equipment: No Sedative: none Laryngoscope: Darin (3) ET tube size: 8 Tube secured depth (cm): 24 Tube secured location: teeth Tube placement confirmation: visualized tube passing through cords, no breath sounds over epigastrium and confirmation by capnometry Patient tolerated procedure: well Additional comments: Decreased breath sounds on the right. XR with appropriate tube position.
[2021-10-05] MEDS: CENTRAL LINE FLUSH 10 ML IV PUSH ×3 (06:56→20:17)
[2021-10-05] MEDS: INSULIN ASPART (*BKC) 100 UNITS/ML SUB-Q ×3 (06:58→15:49)
[2021-10-05 07:00] LABS: Glucose Point of Care 229 mg/dl (65-105)
--- NOTE | 2021-10-05 08:13 | ECG_ITS ---
Measurements Intervals Moon Rate: 47 P: MI: 0 QRS: -66 QRSD: 130 T: 118 QT: 521 QTc: 464 Interpretive Statements ATRIAL FIBRILLATION WITH SLOW VENTRICULAR RESPONSE RIGHT BUNDLE BRANCH BLOCK [120+ ms QRS DURATION, UPRIGHT V1, 40+ ms S IN I/aVL/V4/V5/V6] POSSIBLE ANTERIOR MYOCARDIAL INFARCTION , OF INDETERMINATE AGE [30 ms Q WAVE IN V3/V4, OR R < 0.2 mV IN V4] INFERIOR MYOCARDIAL INFARCTION , PROBABLY OLD [40+ ms Q WAVE AND/OR ST/T ABNORMALITY IN II/aVF] MODERATE T-WAVE ABNORMALITY, CONSIDER LATERAL ISCHEMIA [-0.1+ mV T WAVE IN I/aVL/V5/V6] ABNORMAL ECG COMPARED TO ECG 10/03/2021 14:18:33 RIGHT BUNDLE-BRANCH BLOCK APPRECIATED Electronically Signed On 10-05-2021 16:20:56 CDT by Claudio Jaimes M.D.
--- NOTE | 2021-10-05 08:18 | WPDCNINT ---
Assessment and Plan Assessment and plan (1) Acute respiratory failure with hypoxia: Code(s): J96.01 - Acute respiratory failure with hypoxia Status: Acute Assessment and Plan: Acute Respiratory failure secondary to cardiac arrest, pneumonia and pulmonary edema Continue full mechanical ventilation support to prevent hypoxemia/hypercarbia and end organ damage. ABG and PCXR reviewed and will repeat in am. Currently on 60% FiO2 Low tidal volume ventilation strategy to prevent volutrauma check CT chest (2) End-stage renal disease on peritoneal dialysis: Code(s): N18.6 - End stage renal disease; Z99.2 - Dependence on renal dialysis Status: Acute Assessment and Plan: patient is being followed by Nephrology and will continue peritoneal dialysis. His potassium and acid-base status is acceptable at this time (3) Cardiac arrest: Code(s): I46.9 - Cardiac arrest, cause unspecified Status: Acute Assessment and Plan: I suspect patient's cardiac arrest secondary to junctional bradycardia or slow AFib I will check a echocardiogram I reviewed EKG which shows AFib/ junctional bradycardia with heart rate in 40s I will start patient on low-dose dopamine since patient is also hypotensive get his heart rate close to 60 he may need transvenous pacemaker and I will discuss with Cardiology I will switch his Eliquis to heparin infusion for now check head CT (4) Persistent atrial fibrillation: Code(s): I48.19 - Other persistent atrial fibrillation Status: Acute Assessment and Plan: currently in junctional bradycardia - see above (5) Bradycardia: Code(s): R00.1 - Bradycardia, unspecified Status: Chronic Assessment and Plan: see above (6) Pneumonia: Code(s): J18.9 - Pneumonia, unspecified organism Status: Acute Assessment and Plan: patient on the floor was being treated for community-acquired pneumonia antibiotics were broadened yesterday after intubation as possible patient may have aspirated continue vancomycin and Zosyn blood cultures have been sent and are pending I will check sputum culture also check procalcitonin level Additional Plan DVT prophylaxis - he is on anticoagulation Stress ulcer prophylaxis - add PPI Nutrition - start Tube Feeds Code Status - Full Code Total Critical Care Time - 60 minutes Due to a high probability of clinically significant, life threatening deterioration, the patient required my highest level of preparedness to intervene emergently and I personally spent this critical care time directly and personally managing the patient. This critical care time included obtaining a history; examining the patient; pulse oximetry; ordering and review of studies; arranging urgent treatment with development of a management plan; evaluation of patient's response to treatment; frequent reassessment; and discussions with other providers. It was exclusive of separately billable procedures and treating other patients and teaching time. Please see Assessment and Plan section and the rest of the note for further information on patient assessment and treatment [facility] Consult Note Consult date: 10/05/21 HPI: Rl Gomez Sr. is a 65 year old male was admitted on 10/03 from emergency room after tripping over the last step of his stairs and fell and struck his knees and his head. Patient states he only reason he came to the emergency room was secondary to the fact that he is on Eliquis and he was worried that he may have bleeding in his brain. In emergency room patient was noted to be bradycardic and have an elevated potassium. patient has a complicated past medical history with history of coronary disease status post stent placement with ischemic cardiomyopathy, end-stage renal dialysis on PD, he had an ICD/pacemaker which was removed secondary to infection. He has chronic wounds in both legs
[2021-10-05] MEDS: DOPamine 400 MG/D5W 250 ML 400 MG/250 ML BAG 25.73 MG IV CONT ×2 (08:55→18:33)
[2021-10-05] MEDS: BUMETANIDE 1 MG TABLET 2 MG BY MOUTH ×2 (09:06→14:27)
[2021-10-05] MEDS: DORZOLAMIDE/TIMOLOL OPHTH SOL 10 ML BOTTLE 1 DROP EACH EYE ×2 (09:07→20:10)
[2021-10-05] MEDS: allopurinoL 100 MG TABLET PO (09:07)
[2021-10-05] MEDS: DULoxetine HCL 60 MG CAPSULE.DR PO (09:07)
[2021-10-05] MEDS: BRIMONIDINE TARTRATE 0.2% OP SOLN 5 ML BTL 1 DROP EACH EYE ×2 (09:07→20:10)
[2021-10-05] MEDS: PANTOPRAZOLE SODIUM IV 40 MG VIAL IV PUSH (09:12)
[2021-10-05 10:09] LABS: Procalcitonin 6.4 ng/mL
--- NOTE | 2021-10-05 10:10 | PM.IMPN ---
Progress Note: A&P Assessment and Plan (1) Acute hyperkalemia: Code(s): E87.5 - Hyperkalemia Status: Acute Assessment and Plan: Nephrology recommended patient receive Lokelma 10 g x1. Patient did receive medication will monitor potassium level closely. Continue peritoneal dialysis nephrology consulted (2) Chronic kidney failure: Code(s): N18.9 - Chronic kidney disease, unspecified Status: Acute Assessment and Plan: Nephrology has been consult and do appreciate further recommendations. Will defer all recommendations for dialysis orders to Nephrology. (3) Bradycardia: Code(s): R00.1 - Bradycardia, unspecified Status: Chronic Assessment and Plan: Patient has chronic atrial fibrillation with a slow ventricular rate and is asymptomatic. It has been discussed that patient may need a pacemaker/ICD placed but at this time patient's greens picker at [facility] is not decided to place another device. Patient to patient had cardiac arrest cardiology following currently in ICU (4) Community acquired pneumonia: Code(s): J18.9 - Pneumonia, unspecified organism Status: Acute Assessment and Plan: Patient's CT scan shows a left pleural effusion with left infiltrates. Continue IV antibiotic. (5) Status post fall: Code(s): Z91.81 - History of falling Status: Acute Assessment and Plan: PT OT evaluation (6) Acute respiratory failure with hypoxia: Code(s): J96.01 - Acute respiratory failure with hypoxia Status: Acute Assessment and Plan: Secondary to cardiac arrest on 10/04/2021 Status post CPR intubation admission to the ICU Subjective Date/time seen: 10/05/21 10:10 Interval history: Narrative: Mr. Gomez is a 65-year-old gentleman who presented to emergency room after tripping over the last step of his stairs and fell and struck his knees and his head. Patient states he only reason he came to the emergency room was secondary to the fact that he is on Eliquis and he was worried that he may have bleeding in his brain. Patient denies any loss of conscious, lightheadedness, dizziness, syncopal, or near syncopal episodes. Patient denies any chest discomfort, shortness breath, or palpitations prior to this episode. Patient denies any abdominal pain, nausea, vomiting, constipation, or diarrhea. Patient states he is a peritoneal dialysis patient and recently they have been trying to remove excess fluid from him and they have been using a new dialysis state. Upon evaluation in emergency room patient was noted to be bradycardic and have an elevated potassium. Of patient has episodes of bradycardia patient also has recent history of peritonitis completed course of antibiotics and still has lower extremity ulcer Patient has history of AICD which was removed due to infection, per patient there was plan to for possible inserting another AICD in the future. On 10/04/2021 patient had episode of cardiac arrest/PE a was found to have junctional bradycardia patient required CPR intubation and admission to the ICU Sedated intubated unable to provide history I am seeing the patient for pneumonia Exam Narrative: Sedated intubated Chest decreased air entry bilateral Abdomen nontender nondistended CVS S1 + S2 Lower positive lower extremity ulcer Objective Data Vital Signs Vital Signs: Vital Signs - 24 hr 10/04/21 12:00 10/04/21 14:00 10/04/21 16:00 Temperature 97.9 F 97.4 F L Pulse Rate 46 L 53 L 59 L Respiratory Rate 18 20 Blood Pressure 111/53 L 102/59 L Pulse Oximetry 93 98 10/04/21 20:00 10/04/21 22:45 10/04/21 22:51 Temperature 97.6 F 97.6 F Pulse Rate 61 63 63 Respiratory Rate 20 24 H Blood Pressure 112/56 L 73/60 L Pulse Oximetry 93 100 100 10/04/21 23:41 10/04/21 23:43 10/04/21 23:47 Temperature Pulse Rate 62 59 L 61 Respiratory Rate 22 H Blood Pressure Pulse Oximetry 10/05/21 00:00 10/05/21
--- NOTE | 2021-10-05 10:42 | PM.PNCARD ---
Progress Note: A&P Assessment and Plan (1) Cardiac arrest: Code(s): I46.9 - Cardiac arrest, cause unspecified Status: Acute Assessment and Plan: Extensive review of telemetry prior to during and subsequent to his noted cardiac arrest reveals no significant change in rhythm and or heart rate S contribution to his cardiac arrest secondary to PEA. There is no clear evidence for association with his bradycardia as a cause or contributor. Most likely secondary to hypoxia and or sepsis/septic shock with hypotension. The significance of the fact that he was on PD at the time also must be considered. Troponin minimally elevated excluding acute myocardial infarction is primary explanation which would be a very likely cause for PEA arrest in general. He has been anticoagulated on Eliquis making pulmonary embolism less likely although not impossible. There is no clear indication for transvenous pacemaker and/or permanent pacemaker and this time a as with available evidence and review telemetry it does not appear that this would have or will change his management at this time. Nonetheless, I agree with dopamine given his previous documentation of hypotension and relative bradycardia. Monitor electrolytes very closely. Repeat CT imaging of chest per Critical Care. At this time, most likely explanation respiratory decompensation, worsening pneumonia sepsis/septic shock. Patient is critically ill, prognosis guarded. At this time, there does not appear to be indication for temporary transvenous pacemaker and/or pacemaker implantation. (2) Acute respiratory failure with hypoxia: Code(s): J96.01 - Acute respiratory failure with hypoxia Status: Acute Assessment and Plan: Remains intubated on mechanical ventilatory support requiring significant FiO2. Per Critical Care. 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 Defer to primary service and critical care in this regard. (3) Septic shock: Code(s): A41.9 - Sepsis, unspecified organism; R65.21 - Severe sepsis with septic shock Status: Acute Assessment and Plan: On pressors, dopamine. Broad-spectrum antibiotics, panculture. It should be noted that the patient reported he had fairly recently completed course of antibiotics for peritonitis. (4) Bradycardia: Code(s): R00.1 - Bradycardia, unspecified Status: Acute Assessment and Plan: As above. Asymptomatic, chronic. This is indicative of underlying significant conduction system disease. (5) Persistent atrial fibrillation: Code(s): I48.19 - Other persistent atrial fibrillation Status: Acute Assessment and Plan: Atrial fibrillation is not new, chronic as well as his bradycardia. He has close follow-up with his sales development director at [facility] with discussion regarding lead loose pacemaker implantation in the future. -Continue to avoid AV miles blocking agents. -Remains on systemic anticoagulation with Eliquis. (6) Elevated troponin: Code(s): R77.8 - Other specified abnormalities of plasma proteins Status: Acute Assessment and Plan: Type 2 infarction minimal elevation given renal failure, history of CAD, hypertension, hypoxia not secondary to acute coronary syndrome and/or plaque rupture. (7) End-stage renal disease (ESRD): Code(s): N18.6 - End stage renal disease Status: Acute Assessment and Plan: Peritoneal dialysis per Nephrology. (8) Ischemic cardiomyopathy: Code(s): I25.5 - Ischemic cardiomyopathy Status: Acute Assessment and Plan: Stable, chronic heart failure with reduced ejection fraction reasonably compensated. Volume management with Nephrology and peritoneal dialysis. (9) Community acquired pneumonia: Code(s): J18.9 - Pneumonia, unspecified organism Status: Acute Assessment and Plan: Management per primary service with antibiotics as macho
[2021-10-05] MEDS: MIDAZOLAM HCL (*CRX) 2 MG/2 ML VIAL 4 MG IV PUSH (11:03)
[2021-10-05] MEDS: MINERAL OIL/WHITE PETROLATUM OINTMENT 1 APPLIC EACH EYE ×2 (11:33→20:11)
[2021-10-05 12:20] LABS: Glucose Point of Care 216 mg/dl (65-105)
--- NOTE | 2021-10-05 12:45 | P.PNNP_ITS ---
Progress Note: A&P Assessment and Plan (1) End-stage renal disease (ESRD): Code(s): N18.6 - End stage renal disease Status: Acute Assessment and Plan: * continue CCPD treatment while hospitalized * follow electrolytes, volume status, and clearance * possible contamination with ending PD treatment during cardiac arrest last night-- however, on antibiotics already * BUN a bit higher -- will try to be more aggressive with regard to clearance with PD (2) Cardiac arrest: Code(s): I46.9 - Cardiac arrest, cause unspecified Status: Acute Assessment and Plan: * etiology not clear * Cardiology following with recommendations noted * continue supportive care (3) Acute respiratory failure with hypoxia: Code(s): J96.01 - Acute respiratory failure with hypoxia Status: Acute Assessment and Plan: * secondary to cardiac arrest and pneumonia * continue ventilator support * follow culture data * antibiotics adjusted (4) Hyponatremia: Code(s): E87.1 - Hypo-osmolality and hyponatremia Status: Acute Assessment and Plan: * a bit lower than what he normally runs (135 - 136) * no worse but not better either (although did not get his full PD treatment last night) * possibly exacerbated pneumonia(?) * perhaps a degree of volume overload as well * follow trend for now (5) Hypotension: Code(s): I95.9 - Hypotension, unspecified Status: Acute Assessment and Plan: * possibly due to more aggressive ultrafiltration recently(?) * follow trend of hemodynamics * on dopamine at this time (6) Bradycardia: Code(s): R00.1 - Bradycardia, unspecified Status: Chronic Assessment and Plan: * apparently a chronic issue at baseline * Cardiology following * on dopamine to help (7) Community acquired pneumonia: Code(s): J18.9 - Pneumonia, unspecified organism Status: Acute Assessment and Plan: * as noted by admission and repeat imaging to date * follow culture data * on antibiotics (8) Anemia: Code(s): D64.9 - Anemia, unspecified Status: Chronic Assessment and Plan: * due to ESRD and possibly acute illness * start Epogen 3x/week but H/H at goal * follow trend of H/H Will continue to follow. Subjective Date/time seen: 10/05/21 12:45 Events noted overnight -- code blue/rapid response last night as patient found unresponsive with reported systolic BP in the 70s with relative bradycardia (high 40s/low 50s) and in atrial fibrillation; PEA noted and ACLS protocol initiated with subsequent intubation and transfer to ICU for mechanical ventilation; central line placed and currently on low dose dopamine to help with BP and heart rate; cardiac arrest occurred when he was on peritoneal dialysis and his treatment was aborted when he was transferred to the ICU. Exam Narrative: General: WD/WN male intubated/sedated and on mechanical ventilation Heart: normal S1 and S2; no rub Lungs: coarse breath sounds Abdomen: obese but soft, nontender, nondistended, positive bowel sounds; PD catheter in place Extremities: chronic bilateral edema with bilateral dressings noted Skin: chronic venous stasis changes present Objective Data Vital Signs Vital Signs: Vital Signs Temp Pulse Resp BP Pulse Ox 10/05/21 12:41 59 L 22 H 10/05/21 12:40 55 L 22
--- NOTE | 2021-10-05 12:45 | PM.PNNEP ---
Progress Note: A&P Assessment and Plan (1) End-stage renal disease (ESRD): Code(s): N18.6 - End stage renal disease Status: Acute Assessment and Plan: continue CCPD treatment while hospitalized follow electrolytes, volume status, and clearance possible contamination with ending PD treatment during cardiac arrest last night-- however, on antibiotics already BUN a bit higher -- will try to be more aggressive with regard to clearance with PD (2) Cardiac arrest: Code(s): I46.9 - Cardiac arrest, cause unspecified Status: Acute Assessment and Plan: etiology not clear Cardiology following with recommendations noted continue supportive care (3) Acute respiratory failure with hypoxia: Code(s): J96.01 - Acute respiratory failure with hypoxia Status: Acute Assessment and Plan: secondary to cardiac arrest and pneumonia continue ventilator support follow culture data antibiotics adjusted (4) Hyponatremia: Code(s): E87.1 - Hypo-osmolality and hyponatremia Status: Acute Assessment and Plan: a bit lower than what he normally runs (135 - 136) no worse but not better either (although did not get his full PD treatment last night) possibly exacerbated pneumonia(?) perhaps a degree of volume overload as well follow trend for now (5) Hypotension: Code(s): I95.9 - Hypotension, unspecified Status: Acute Assessment and Plan: possibly due to more aggressive ultrafiltration recently(?) follow trend of hemodynamics on dopamine at this time (6) Bradycardia: Code(s): R00.1 - Bradycardia, unspecified Status: Chronic Assessment and Plan: apparently a chronic issue at baseline Cardiology following on dopamine to help (7) Community acquired pneumonia: Code(s): J18.9 - Pneumonia, unspecified organism Status: Acute Assessment and Plan: as noted by admission and repeat imaging to date follow culture data on antibiotics (8) Anemia: Code(s): D64.9 - Anemia, unspecified Status: Chronic Assessment and Plan: due to ESRD and possibly acute illness start Epogen 3x/week but H/H at goal follow trend of H/H Will continue to follow. Subjective Date/time seen: 10/05/21 12:45 Events noted overnight -- code blue/rapid response last night as patient found unresponsive with reported systolic BP in the 70s with relative bradycardia (high 40s/low 50s) and in atrial fibrillation; PEA noted and ACLS protocol initiated with subsequent intubation and transfer to ICU for mechanical ventilation; central line placed and currently on low dose dopamine to help with BP and heart rate; cardiac arrest occurred when he was on peritoneal dialysis and his treatment was aborted when he was transferred to the ICU. Exam Narrative: General: WD/WN male intubated/sedated and on mechanical ventilation Heart: normal S1 and S2; no rub Lungs: coarse breath sounds Abdomen: obese but soft, nontender, nondistended, positive bowel sounds; PD catheter in place Extremities: chronic bilateral edema with bilateral dressings noted Skin: chronic venous stasis changes present Objective Data Vital Signs Vital Signs: Vital Signs Temp Pulse Resp BP Pulse Ox 10/05/21 12:41 59 L 22 H 10/05/21 12:40 55 L 22 H 10/05/21 12:15 60 109/59 L 10/05/21 12:00 37.2 C 63 22 H 109/59 L 98 10/05/21 11:11 63 95 10/05/21 11:05 65 18 10/05/21 11:03 18 10/05/21 10:08 68 91 10/05/21 10:00 67 18 106/59 L 93 10/05/21 09:43 73 104/60 10/05/21 08:55 43 L 108/59 L 10/05/21 08:27 44 L 99 10/05/21 08:00 37.2 C 45 L 18 103/56 L 100 10/05/21 06:00 37.0 C 49 L 18 100/60 94 10/05/21 05:04 49 L 100 10/05/21 04:15 54 L 18 10/05/21 04:13 55 L 16 10/05/21 04:00 49 L 18 102/58 L 100 10/05/21 02:00 36.4 C
[2021-10-05] MEDS: SOD HYPOCHLORITE 1/4 STRENGTH 473 ML 1 APPLIC TOPICAL (12:59)
[2021-10-05] MEDS: SILVER SULFADIAZINE 1% CR 50 GM JAR (*BKC) 1 APPLIC TOPICAL (13:00)
[2021-10-05] MEDS: MUPIROCIN 2% OINT 22 GM TUBE 1 APPLIC TOPICAL (13:00)
[2021-10-05] MEDS: APIXABAN 5 MG TABLET PO (15:45)
[2021-10-05 15:59] LABS: Glucose Point of Care 233 mg/dl (65-105)
[2021-10-05] MEDS: SEVELAMER CARBONATE 800 MG TABLET 1600 MG BY MOUTH (16:54)
[2021-10-05] MEDS: MIDAZOLAM 100MG/NS 100ML(*CRX) 100 MG/100 ML BAG IV CONT (19:14)
[2021-10-05] MEDS: ROSUVASTATIN 10 MG TABLET PO (20:11)
[2021-10-06] VITALS (36 sets, daily range): BP systolic 60–143; BP diastolic 40–81; PULSE 52–68; RESP 18–22; TEMP 36.3–37.3; O2SAT 93–100; BMI 38.7
--- NOTE | 2021-10-06 | ECHO_ITS ---
Patient Info Name: Rl Gomez Age: 65 years : 1955 Gender: Male Ht: 70 in Wt: 302 lbs BSA: 2.67 m2 HR: 54 bpm BP: 104 / 62 mmHg Heart Rhythm: Sinus Rhythm Technical Quality: Fair Exam Date: 10/06/2021 8:04 AM Exam Location: [facility] Card Pulmonary Patient Status: Inpatient Admit Date: 10/05/2021 Staff Ordering Physician: Luis Albetro Dow MD Radio Script Writer: Domitila Chandler RDCS Attending Provider: Mor Isaac MD Exam Type: CA echo dop color flow w con Study Info Indications - cardiac arrest Complete two-dimensional, color flow and Doppler transthoracic echocardiogram is performed with contrast to opacify the left ventricle and to improve the deliniation of the left ventricle endocardial borders. Contrast/Agitated Saline Contrast/Ag. Saline: Definity Amount: 2.00 ml Administered By: Domitila Chandler RDCS Existing IV Access: Yes IV Access Condition: patent with no signs of infiltration Summary 1. Technically difficult study, poor image quality despite using echo contrast. Borderline LV enlargement, mild LVH; moderate-severe LV systolic dysfunction, ejection fraction about 30-35% on visual estimation; indeterminate diastolic function. Mitral annular calcification, trivial MR. Aortic valve is calcified and restricted, not well visualized, cannot rule out bicuspid aortic valve. Moderate-severe aortic stenosis by valve area criteria-ANGIE 1-1.1 cm2; with relatively low mean gradient of 7 mmHg, vmax 1.8 m/sec. Moderate pulmonary hypertension, RVSP 54 mmHg. Mild TR. Recommend RODRIGO if clinically appropriate to further evaluate aortic valve anatomy. Left Ventricle Left ventricular chamber dimension is mildly enlarged. Left ventricular systolic function is moderately reduced, estimated at 30-35%. There is mildly increased left ventricular wall thickness. Right Ventricle Right ventricular chamber dimension is normal. Right ventricular systolic function is reduced. Left Atria Left atrial chamber dimension is not well visualized. Right Atria Right atrial chamber dimension is not well visualized. Aortic Valve There is moderate aortic valve calcification. Pulmonic Valve The pulmonic valve is not well visualized. Mitral Valve There is trace mitral valve regurgitation. There is moderate mitral valve calcification. Tricuspid Valve The tricuspid valve leaflets are normal. There is mild tricuspid valve regurgitation. Moderate pulmonary hypertension, estimated pulmonary arterial systolic pressure is 54 mmHg. Aorta The aortic root size at the sinus of Valsalva is not well visualized. Left Ventricular Outflow Tract Name Value Normal LVOT 2D LVOT Diameter 2.05 cm LVOT Doppler LVOT Peak Gradient 1 mmHg LVOT Mean Gradient 1 mmHg LVOT VTI 10.16 cm LVOT VTI/AV VTI Ratio 0.32 LVOT Stroke Volume 33.59 ml LVOT CO 1.71 l/min LVOT CI 0.64 L/min/m2 Pulmonic Valv
[2021-10-06] MEDS: DOPamine 400 MG/D5W 250 ML 400 MG/250 ML BAG 25.73 MG IV CONT (04:23)
[2021-10-06] MEDS: CENTRAL LINE FLUSH 10 ML IV PUSH ×3 (04:26→20:16)
[2021-10-06 04:37] LABS: Hematocrit 30.3 % (42.0-52.0); Hemoglobin 10.8 g/dL (14.0-18.0); Mean Corpuscular HGB Conc 35.6 g/dl (32-36); Mean Corpuscular Hemoglobin 31.8 pg (26-34); Mean Corpuscular Volume 89.1 fl (80-100); Mean Platelet Volume 10.3 fl (7.4-10.4); Platelet Count Result 322 k/mm3 (150-375); Red Cell Distribution Width 15.6 % (11.5-14.5)
[2021-10-06] MEDS: INSULIN ASPART (*BKC) 100 UNITS/ML SUB-Q ×5 (04:38→20:13)
[2021-10-06 04:48] LABS: Alanine Aminotransferase 18 U/L (4-50); Albumin Level 3.2 g/dL (3.5-5.1); Alkaline Phosphatase 94 U/L (38-126); Anion Gap 13 mmol/L (8-16); Aspartate Amino Transferase 26 U/L (17-59); Bilirubin,Total 0.7 mg/dL (0.2-1.3); Blood Urea Nitrogen 87 mg/dL (9-20); Calcium 7.9 mg/dL (8.4-10.2); Carbon Dioxide 25 mmol/L (22-30); Chloride 87 mmol/L (98-107); Estimated CRCL calculation 11 ml/min; Estimated Glomerular Filt Rate 6; Glucose 261 mg/dL (65-110); Magnesium 2.3 mg/dL (1.6-2.3); Sodium 125 mmol/L (137-145)
[2021-10-06 05:05] LABS: Vancomycin Random 16.2 ug/mL (10-20)
[2021-10-06 05:15] LABS: Alveolar/Arterial O2 Gradient 217.6 mmHg; Base Excess ABG -0.2 mEq/l (+/-2.0); Carboxyhemoglobin 0.3 % THb (0-2.0); Fractional Inspired Oxygen 50 %; HCO3 ABG 22.3 mEq/l (22.0-26.0); Methemoglobin ABG 0.3 %THb (0-1.5); Oxygen Content ABG 15.7 %vol (16.0-22.0); Oxygen Saturation ABG 98.3 % (95.0-100.0); Oxyhemoglobin 96.7 % THb (90.0-100.0); PCO2 ABG 29.5 mmHg (35.0-45.0); PO2 ABG 105.7 mmHg (80.0-100.0); PO2 FiO2 Ratio Arterial Blood 2.11 %; Reduced Hemoglobin 2.7 %THb (0-5.0); Total Hemoglobin 11.4 g/dL (12.0-18.0); pH ABG 7.496 (7.350-7.450)
[2021-10-06 05:20] LABS: Arterial Blood Gas PEEP 12 cmH2O; Arterial Blood Gas Tidal Volume 450 ml; Arterial Blood Gas Vent Mode CMV; Arterial Blood Gas Ventilator rate 22 /MIN; Device VENTILATOR; Modified Allen's Test Pass; Site Drawn LEFT RADIAL
[2021-10-06 05:56] LABS: Glucose Point of Care 168 mg/dl (65-105)
[2021-10-06 05:56] LABS: Glucose Point of Care 230 mg/dl (65-105)
[2021-10-06 05:56] LABS: Glucose Point of Care 180 mg/dl (65-105)
--- NOTE | 2021-10-06 07:55 | PC.NURSE ---
Lower Versed gtt from 5 to 3 ml/hr per Dr. Dow
--- NOTE | 2021-10-06 08:55 | IVDEFINITY ---
Prior to administration of IV Definity the patient was educated on the risks and benefits of the imaging enhancing agent including potential adverse side effects. The patient verbalized understanding. Allergies were verified. No exclusion criteria were identified and at least one of the following inclusion criteria were met: 1) physician request, 2) patient technically difficult to image (per the [place] [employer] of Echocardiography guidelines of two or more segments not discernable within the apical view), or 3) questionable left ventricular function. ?
--- NOTE | 2021-10-06 08:59 | WPDINTPN ---
Progress Note: A&P Assessment and Plan (1) Acute respiratory failure with hypoxia: Code(s): J96.01 - Acute respiratory failure with hypoxia Status: Acute Assessment and Plan: Acute Respiratory failure secondary to cardiac arrest, pneumonia and pulmonary edema Continue full mechanical ventilation support to prevent hypoxemia/hypercarbia and end organ damage. ABG and PCXR reviewed and will repeat in am. Currently on 50% FiO2 I have decrease PEEP to 10 Low tidal volume ventilation strategy to prevent volutrauma Chest CT reviewed Patient is already on anticoagulation but PE is another unlikely possibility. Unfortunately he is allergic to iodine contrast and heparin. He has end-stage renal disease and on PD. Lower extremity Dopplers were negative for DVT. Unable to do CTA due to allergy to contrast. Regarding anticoagulation heparin infusion and Lovenox are not an option. His claims that patient is allergic to heparin and I suspect patient may have a history of HIT although I do not see any documentation. For now, I will continue Eliquis but in case we need to switch who IV, I will switch him to argatroban. Chest CT IMPRESSION: 1. Small right and large left pleural effusions. 2. Acute fractures of left second-sixth ribs. 3. 3.8 x 1.7 cm anterior mediastinal mass, increased from 1.9 x 1.6 cm on 10/03/21. This finding may be a combination of hematoma and a pre-existing mass such as thymoma or lymphoma. 5. Small volume of ascites with peritoneal dialysis catheter. 6. Mild bilateral external iliac lymphadenopathy, likely reactive. (2) End-stage renal disease on peritoneal dialysis: Code(s): N18.6 - End stage renal disease; Z99.2 - Dependence on renal dialysis Status: Acute Assessment and Plan: patient is being followed by Nephrology and is currently peritoneal dialysis. case discussed with Dr. Combs and he will adjust dialysis to try to remove additional fluid (3) Cardiac arrest: Code(s): I46.9 - Cardiac arrest, cause unspecified Status: Acute Assessment and Plan: Its possible patient's cardiac arrest secondary to junctional bradycardia or slow AFib Echocardiogram is pending Troponins, although mildly elevated in presence of end-stage renal disease, remained flat EKG showed AFib/ junctional bradycardia with heart rate in 40s continue low-dose dopamine since patient is also hypotensive get his heart rate close to 60 he may need transvenous pacemaker and I have discussed with Cardiology cardiology is following continue Eliquis head CT was negative for any hemorrhage lead (4) Persistent atrial fibrillation: Code(s): I48.19 - Other persistent atrial fibrillation Status: Acute Assessment and Plan: currently in junctional bradycardia - see above (5) Bradycardia: Code(s): R00.1 - Bradycardia, unspecified Status: Chronic Assessment and Plan: see above (6) Pneumonia: Code(s): J18.9 - Pneumonia, unspecified organism Status: Acute Assessment and Plan: patient on the floor was being treated for community-acquired pneumonia antibiotics were broadened yesterday after intubation as possible patient may have aspirated continue vancomycin and Zosyn Cultures have been sent and are pending I will check sputum culture also Procalcitonin level 6.4 (7) Insulin dependent diabetes mellitus: Status: Acute Assessment and Plan: continue sliding scale insulin add Lantus (8) Mediastinal mass: Code(s): J98.59 - Other diseases of mediastinum, not elsewhere classified Status: Acute Assessment and Plan: CT chest showed 3.8 x 1.7 cm anterior mediastinal mass, increased from 1.9 x 1.6 cm on 10/03/21. This finding may be a combination of hematoma and a pre-existing mass such as thymoma or lymphoma. He did get CPR with rib fractures which may lead to small hematoma. He has a stable
[2021-10-06] MEDS: PERFLUTREN LIPID MICROSPHERES 1.5 ML VIAL DILUTED TO 10 ML TOTAL VOLUME IV PUSH (09:00)
[2021-10-06] MEDS: DORZOLAMIDE/TIMOLOL OPHTH SOL 10 ML BOTTLE 1 DROP EACH EYE ×2 (09:12→20:14)
[2021-10-06] MEDS: BRIMONIDINE TARTRATE 0.2% OP SOLN 5 ML BTL 1 DROP EACH EYE ×2 (09:12→20:14)
[2021-10-06] MEDS: BUMETANIDE 1 MG TABLET 2 MG BY MOUTH ×2 (09:13→13:08)
[2021-10-06] MEDS: SEVELAMER CARBONATE 800 MG TABLET 1600 MG BY MOUTH ×3 (09:13→16:45)
[2021-10-06] MEDS: allopurinoL 100 MG TABLET PO (09:13)
[2021-10-06] MEDS: APIXABAN 5 MG TABLET PO ×2 (09:13→20:15)
[2021-10-06] MEDS: DULoxetine HCL 60 MG CAPSULE.DR PO (09:13)
[2021-10-06] MEDS: MINERAL OIL/WHITE PETROLATUM OINTMENT 1 APPLIC EACH EYE ×2 (09:14→20:15)
[2021-10-06] MEDS: SILVER SULFADIAZINE 1% CR 50 GM JAR (*BKC) 1 APPLIC TOPICAL (09:14)
[2021-10-06] MEDS: MUPIROCIN 2% OINT 22 GM TUBE 1 APPLIC TOPICAL (09:14)
[2021-10-06 09:17] LABS: Glucose Point of Care 294 mg/dl (65-105)
[2021-10-06] MEDS: SOD HYPOCHLORITE 1/4 STRENGTH 473 ML 1 APPLIC TOPICAL (09:19)
[2021-10-06] MEDS: INSULIN GLARGINE (*BKC) 100 UNITS/ML 15 UNITS SUB-Q (09:19)
--- NOTE | 2021-10-06 10:16 | PM.IMPN ---
Progress Note: A&P Assessment and Plan (1) Acute hyperkalemia: Code(s): E87.5 - Hyperkalemia Status: Acute Assessment and Plan: Nephrology recommended patient receive Lokelma 10 g x1. Patient did receive medication will monitor potassium level closely. Continue peritoneal dialysis nephrology consulted (2) Chronic kidney failure: Code(s): N18.9 - Chronic kidney disease, unspecified Status: Acute Assessment and Plan: Nephrology has been consult and do appreciate further recommendations. Will defer all recommendations for dialysis orders to Nephrology. (3) Bradycardia: Code(s): R00.1 - Bradycardia, unspecified Status: Chronic Assessment and Plan: Patient has chronic atrial fibrillation with a slow ventricular rate and is asymptomatic. It has been discussed that patient may need a pacemaker/ICD placed but at this time patient's pediatrics hospitalist at [facility] is not decided to place another device. Patient to patient had cardiac arrest cardiology following currently in ICU Dopamine drip (4) Community acquired pneumonia: Code(s): J18.9 - Pneumonia, unspecified organism Status: Acute Assessment and Plan: Patient's CT scan shows a left pleural effusion with left infiltrates. Continue IV antibiotic. CT scan as below 1. Small right and large left pleural effusions. 2. Acute fractures of left second-sixth ribs. 3. 3.8 x 1.7 cm anterior mediastinal mass, increased from 1.9 x 1.6 cm on 10/03/21. This finding may be a combination of hematoma and a pre-existing mass such as thymoma or lymphoma. 5. Small volume of ascites with peritoneal dialysis catheter (5) Status post fall: Code(s): Z91.81 - History of falling Status: Acute Assessment and Plan: PT OT evaluation (6) Acute respiratory failure with hypoxia: Code(s): J96.01 - Acute respiratory failure with hypoxia Status: Acute Assessment and Plan: Secondary to cardiac arrest on 10/04/2021 Status post CPR intubation admission to the ICU Probably multifactorial secondary to bone pneumonia pulmonary edema and pleural effusion May need aspiration of left pleural effusion (7) Abnormal CT scan, chest: Code(s): R93.89 - Abnormal findings on diagnostic imaging of other specified body structures Status: Acute Assessment and Plan: 1. Small right and large left pleural effusions. Monitor 2. Acute fractures of left second-sixth ribs. Pain control 3. 3.8 x 1.7 cm anterior mediastinal mass, increased from 1.9 x 1.6 cm on 10/03/21. This finding may be a combination of hematoma and a pre-existing mass such as thymoma or lymphoma. Follow-up with PCP as outpatient Subjective Date/time seen: 10/06/21 10:16 Interval history: Narrative: Mr. Gomez is a 65-year-old gentleman who presented to emergency room after tripping over the last step of his stairs and fell and struck his knees and his head. Patient states he only reason he came to the emergency room was secondary to the fact that he is on Eliquis and he was worried that he may have bleeding in his brain. Patient denies any loss of conscious, lightheadedness, dizziness, syncopal, or near syncopal episodes. Patient denies any chest discomfort, shortness breath, or palpitations prior to this episode. Patient denies any abdominal pain, nausea, vomiting, constipation, or diarrhea. Patient states he is a peritoneal dialysis patient and recently they have been trying to remove excess fluid from him and they have been using a new dialysis state. Upon evaluation in emergency room patient was noted to be bradycardic and have an elevated potassium. Of patient has episodes of bradycardia patient also has recent history of peritonitis completed course of antibiotics and still has lower extremity ulcer Patient has history of AICD which was removed due to infection, per patient there was plan to for possible inserting another AICD in
[2021-10-06] MEDS: METOCLOPRAMIDE HCL 10 MG/10 ML SOLN UDC PO ×3 (11:22→22:02)
[2021-10-06] MEDS: ALBUMIN HUMAN 25% 12.5 GM/50ML 50 ML IVPB ×2 (11:22→17:49)
[2021-10-06] MEDS: DOPamine 400 MG/D5W 250 ML 400 MG/250 ML BAG 38.59 MG IV CONT ×2 (13:03→20:07)
[2021-10-06 13:17] LABS: Glucose Point of Care 271 mg/dl (65-105)
--- NOTE | 2021-10-06 16:09 | P.PNNP_ITS ---
Progress Note: A&P Assessment and Plan (1) End-stage renal disease (ESRD): Code(s): N18.6 - End stage renal disease Status: Acute Assessment and Plan: * continue CCPD treatment while hospitalized * follow electrolytes, volume status, and clearance * he has volume overload. His ultrafiltration is pretty good currently on all 2.5% Dianeal. He is also getting an extra exchange which should help the ultrafiltration. He has some swelling now so I will add a 4.25% bag tonight which should take more fluid off. * BUN Is still high. He is getting more intense peritoneal dialysis now. (2) Cardiac arrest: Code(s): I46.9 - Cardiac arrest, cause unspecified Status: Acute Assessment and Plan: * etiology not clear * Cardiology following with recommendations noted * continue supportive care (3) Acute respiratory failure with hypoxia: Code(s): J96.01 - Acute respiratory failure with hypoxia Status: Acute Assessment and Plan: * secondary to cardiac arrest and pneumonia * continue ventilator support * follow culture data * antibiotics on board (4) Hyponatremia: Code(s): E87.1 - Hypo-osmolality and hyponatremia Status: Acute Assessment and Plan: * a bit lower than what he normally runs (135 - 136) * no worse but not better either (although did not get his full PD treatment last night) * Due to water drinking before his arrest. (5) Hypotension: Code(s): I95.9 - Hypotension, unspecified Status: Acute Assessment and Plan: * possibly due to more aggressive ultrafiltration recently(?) * follow trend of hemodynamics * on dopamine at this time. His pulse is in the 50s and 60s. (6) Bradycardia: Code(s): R00.1 - Bradycardia, unspecified Status: Chronic Assessment and Plan: * apparently a chronic issue at baseline * Cardiology following * on dopamine to help (7) Community acquired pneumonia: Code(s): J18.9 - Pneumonia, unspecified organism Status: Acute Assessment and Plan: * as noted by admission and repeat imaging to date * follow culture data * on Zosyn (8) Anemia: Code(s): D64.9 - Anemia, unspecified Status: Chronic Assessment and Plan: * due to ESRD and possibly acute illness * start Epogen 3x/week but H/H at goal * follow trend of H/H Will continue to follow. Subjective Date/time seen: 10/06/21 16:09 Interval history: The patient is on the ventilator. He is sedated. He looks comfortable. He is on peritoneal dialysis and tolerating it well. fluid is clear and flows are good. He is on exchange 6. He was seen at 8:15 a.m. Exam Narrative: WDWN Gentleman on the ventilator in the ICU sedated in NAD skin no rash head ncat lungs Coarse bilaterally. cor reg no rub abd BS+ nontender and soft ext 2+ edema. Objective Data Vital Signs Vital Signs: Vital Signs - 24 hr 10/05/21 16:38 10/05/21 17:12 10/05/21 17:13 Temperature Pulse Rate 60 57 L 60 Respiratory Rate 22 H Blood Pressure 112/72 Pulse Oximetry 98 10/05/21 17:47 10/05/21 17:48 10/05/21 18:00 Temperature Pulse Rate 57 L 59 L 57 L Respiratory Rate 22 H 22 H Blood Pressure 113/67 99/63 L Pulse Oximetry 97
--- NOTE | 2021-10-06 16:09 | PM.PNNEP ---
Progress Note: A&P Assessment and Plan (1) End-stage renal disease (ESRD): Code(s): N18.6 - End stage renal disease Status: Acute Assessment and Plan: continue CCPD treatment while hospitalized follow electrolytes, volume status, and clearance he has volume overload. His ultrafiltration is pretty good currently on all 2.5% Dianeal. He is also getting an extra exchange which should help the ultrafiltration. He has some swelling now so I will add a 4.25% bag tonight which should take more fluid off. BUN Is still high. He is getting more intense peritoneal dialysis now. (2) Cardiac arrest: Code(s): I46.9 - Cardiac arrest, cause unspecified Status: Acute Assessment and Plan: etiology not clear Cardiology following with recommendations noted continue supportive care (3) Acute respiratory failure with hypoxia: Code(s): J96.01 - Acute respiratory failure with hypoxia Status: Acute Assessment and Plan: secondary to cardiac arrest and pneumonia continue ventilator support follow culture data antibiotics on board (4) Hyponatremia: Code(s): E87.1 - Hypo-osmolality and hyponatremia Status: Acute Assessment and Plan: a bit lower than what he normally runs (135 - 136) no worse but not better either (although did not get his full PD treatment last night) Due to water drinking before his arrest. (5) Hypotension: Code(s): I95.9 - Hypotension, unspecified Status: Acute Assessment and Plan: possibly due to more aggressive ultrafiltration recently(?) follow trend of hemodynamics on dopamine at this time. His pulse is in the 50s and 60s. (6) Bradycardia: Code(s): R00.1 - Bradycardia, unspecified Status: Chronic Assessment and Plan: apparently a chronic issue at baseline Cardiology following on dopamine to help (7) Community acquired pneumonia: Code(s): J18.9 - Pneumonia, unspecified organism Status: Acute Assessment and Plan: as noted by admission and repeat imaging to date follow culture data on Zosyn (8) Anemia: Code(s): D64.9 - Anemia, unspecified Status: Chronic Assessment and Plan: due to ESRD and possibly acute illness start Epogen 3x/week but H/H at goal follow trend of H/H Will continue to follow. Subjective Date/time seen: 10/06/21 16:09 Interval history: The patient is on the ventilator. He is sedated. He looks comfortable. He is on peritoneal dialysis and tolerating it well. fluid is clear and flows are good. He is on exchange 6. He was seen at 8:15 a.m. Exam Narrative: WDWN Gentleman on the ventilator in the ICU sedated in NAD skin no rash head ncat lungs Coarse bilaterally. cor reg no rub abd BS+ nontender and soft ext 2+ edema. Objective Data Vital Signs Vital Signs: Vital Signs - 24 hr 10/05/21 16:38 10/05/21 17:12 10/05/21 17:13 Temperature Pulse Rate 60 57 L 60 Respiratory Rate 22 H Blood Pressure 112/72 Pulse Oximetry 98 10/05/21 17:47 10/05/21 17:48 10/05/21 18:00 Temperature Pulse Rate 57 L 59 L 57 L Respiratory Rate 22 H 22 H Blood Pressure 113/67 99/63 L Pulse Oximetry 97 10/05/21 18:33 10/05/21 18:38 10/05/21 19:14 Temperature Pulse Rate 58 L 56 L 56 L Respiratory Rate 22 H 22 H Blood Pressure Pulse Oximetry 10/05/21 19:44 10/05/21 19:56 10/05/21 20:00 Temperature 36.9 C Pulse Rate 55 L 56 L Respiratory Rate 22 H Blood Pressure 107/66 Pulse Oximetry 100 100 10/05/21 21:51 10/05/21 22:00 10/05/21 23:15 Temperature Pulse Rate 55 L 56 L 52 L Respiratory Rate 22 H Blood Pressure 110/62 Pulse Oximetry 100 98 10/05/21 23:58 10/05/21 23:59 10/06/21 00:00 Temperature 37.0 C Pulse Rate 56 L 56 L Respiratory Rate 22 H Blood Pressure 104/61 Pulse Oximetry 98 100 10/06/21 02:00 0
[2021-10-06 16:48] LABS: Glucose Point of Care 233 mg/dl (65-105)
[2021-10-06] MEDS: MIDAZOLAM 100MG/NS 100ML(*CRX) 100 MG/100 ML BAG IV CONT (18:00)
[2021-10-06 20:14] LABS: Glucose Point of Care 217 mg/dl (65-105)
[2021-10-06] MEDS: ROSUVASTATIN 10 MG TABLET PO (20:15)
[2021-10-07] VITALS (29 sets, daily range): BP systolic 96–128; BP diastolic 64–76; PULSE 48–64; RESP 18–20; TEMP 36.1–37.2; O2SAT 91–98
[2021-10-07 00:35] LABS: Glucose Point of Care 300 mg/dl (65-105)
[2021-10-07] MEDS: INSULIN ASPART (*BKC) 100 UNITS/ML SUB-Q ×2 (00:39→04:53)
[2021-10-07] MEDS: FENTANYL 2,500MCG/NS250ML(*CRX 2,500 MCG/250 ML BAG IV CONT (00:40)
[2021-10-07] MEDS: ALBUMIN HUMAN 25% 12.5 GM/50ML 50 ML IVPB ×5 (00:41→23:48)
[2021-10-07] MEDS: DOPamine 400 MG/D5W 250 ML 400 MG/250 ML BAG 38.59 MG IV CONT ×4 (02:54→22:26)
[2021-10-07] MEDS: METOCLOPRAMIDE HCL 10 MG/10 ML SOLN UDC PO ×4 (04:16→22:26)
[2021-10-07 04:41] LABS: Glucose Point of Care 288 mg/dl (65-105)
[2021-10-07 04:49] LABS: Hematocrit 32.5 % (42.0-52.0); Mean Corpuscular HGB Conc 33.8 g/dl (32-36); Mean Corpuscular Hemoglobin 31.3 pg (26-34); Mean Corpuscular Volume 92.6 fl (80-100); Mean Platelet Volume 10.7 fl (7.4-10.4); Platelet Count Result 319 k/mm3 (150-375); Red Blood Count 3.51 M/mm3 (4.6-6.20); Red Cell Distribution Width 15.7 % (11.5-14.5); White Blood Count 11.5 K/mm3 (4.5-10.0)
[2021-10-07] MEDS: CENTRAL LINE FLUSH 10 ML IV PUSH ×2 (04:53→20:22)
[2021-10-07 05:37] LABS: Alveolar/Arterial O2 Gradient 120.1 mmHg; Carboxyhemoglobin 0.3 % THb (0-2.0); Fractional Inspired Oxygen 40 %; HCO3 ABG 23.7 mEq/l (22.0-26.0); Methemoglobin ABG 0.3 %THb (0-1.5); Oxygen Content ABG 15.5 %vol (16.0-22.0); Oxygen Saturation ABG 98.6 % (95.0-100.0); Oxyhemoglobin 97.2 % THb (90.0-100.0); PCO2 ABG 35.2 mmHg (35.0-45.0); PO2 ABG 124.6 mmHg (80.0-100.0); PO2 FiO2 Ratio Arterial Blood 3.12 %; Reduced Hemoglobin 2.2 %THb (0-5.0); Total Hemoglobin 11.2 g/dL (12.0-18.0); pH ABG 7.446 (7.350-7.450)
[2021-10-07 05:38] LABS: Alanine Aminotransferase 13 U/L (4-50); Albumin Level 3.6 g/dL (3.5-5.1); Alkaline Phosphatase 83 U/L (38-126); Anion Gap 14 mmol/L (8-16); Aspartate Amino Transferase 18 U/L (17-59); Bilirubin,Total 0.8 mg/dL (0.2-1.3); Blood Urea Nitrogen 76 mg/dL (9-20); Calcium 8.3 mg/dL (8.4-10.2); Carbon Dioxide 25 mmol/L (22-30); Chloride 87 mmol/L (98-107); Estimated CRCL calculation 11 ml/min; Estimated Glomerular Filt Rate 7; Glucose 237 mg/dL (65-110); Magnesium 2.3 mg/dL (1.6-2.3); Phosphorus 7.5 mg/dL (2.5-4.5); Potassium 4.6 mmol/L (3.4-5.0); Sodium 126 mmol/L (137-145)
[2021-10-07 05:38] LABS: Arterial Blood Gas Ventilator rate 18 /MIN; Device VENTILATOR; Modified Allen's Test Pass; Site Drawn RIGHT RADIAL
[2021-10-07 05:39] LABS: Arterial Blood Gas PEEP 10 cmH2O; Arterial Blood Gas Vent Mode CMV
[2021-10-07 05:40] LABS: Arterial Blood Gas Tidal Volume 450 ml
[2021-10-07] MEDS: allopurinoL 100 MG TABLET PO (08:39)
[2021-10-07] MEDS: BUMETANIDE 1 MG TABLET 2 MG BY MOUTH ×2 (08:40→13:25)
[2021-10-07] MEDS: DULoxetine HCL 60 MG CAPSULE.DR PO (08:40)
[2021-10-07] MEDS: DORZOLAMIDE/TIMOLOL OPHTH SOL 10 ML BOTTLE 1 DROP EACH EYE ×2 (08:40→20:22)
[2021-10-07] MEDS: SEVELAMER CARBONATE 800 MG TABLET 1600 MG BY MOUTH ×3 (08:40→16:47)
[2021-10-07] MEDS: APIXABAN 5 MG TABLET PO ×2 (08:40→20:22)
[2021-10-07] MEDS: SILVER SULFADIAZINE 1% CR 50 GM JAR (*BKC) 1 APPLIC TOPICAL (08:41)
[2021-10-07] MEDS: BRIMONIDINE TARTRATE 0.2% OP SOLN 5 ML BTL 1 DROP EACH EYE ×2 (08:41→20:22)
[2021-10-07] MEDS: MUPIROCIN 2% OINT 22 GM TUBE 1 APPLIC TOPICAL (08:41)
[2021-10-07] MEDS: SOD HYPOCHLORITE 1/4 STRENGTH 473 ML 1 APPLIC TOPICAL (08:42)
[2021-10-07] MEDS: INSULIN GLARGINE (*BKC) 100 UNITS/ML 30 UNITS SUB-Q (08:42)
--- NOTE | 2021-10-07 08:44 | PM.PNCARD ---
Progress Note: A&P Assessment and Plan (1) Cardiac arrest: Code(s): I46.9 - Cardiac arrest, cause unspecified Status: Acute Assessment and Plan: There is no clear evidence for association with his bradycardia as a cause or contributor. Most likely secondary to hypoxia and or sepsis/septic shock with hypotension. The significance of the fact that he was on PD at the time also must be considered. At this time, most likely explanation respiratory decompensation, worsening pneumonia sepsis/septic shock. Patient is critically ill, prognosis guarded. At this time, there does not appear to be indication for temporary transvenous pacemaker and/or pacemaker implantation. (2) Acute respiratory failure with hypoxia: Code(s): J96.01 - Acute respiratory failure with hypoxia Status: Acute Assessment and Plan: Remains intubated on mechanical ventilatory support, FiO2 requirements are decreasing. Per Critical Care. 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 Defer to primary service and critical care in this regard. (3) Septic shock: Code(s): A41.9 - Sepsis, unspecified organism; R65.21 - Severe sepsis with septic shock Status: Acute Assessment and Plan: Pressors have been weaned. Remains on dopamine. Broad-spectrum antibiotics, panculture. It should be noted that the patient reported he had fairly recently completed course of antibiotics for peritonitis. (4) Bradycardia: Code(s): R00.1 - Bradycardia, unspecified Status: Acute Assessment and Plan: Asymptomatic, chronic. This is indicative of underlying significant conduction system disease. (5) Persistent atrial fibrillation: Code(s): I48.19 - Other persistent atrial fibrillation Status: Acute Assessment and Plan: Atrial fibrillation is not new, chronic as well as his bradycardia. He has close follow-up with his tree chipper at [facility] with discussion regarding lead loose pacemaker implantation in the future. -Continue to avoid AV miles blocking agents. -Remains on systemic anticoagulation with Eliquis. (6) Elevated troponin: Code(s): R77.8 - Other specified abnormalities of plasma proteins Status: Acute Assessment and Plan: Type 2 infarction minimal elevation given renal failure, history of CAD, hypertension, hypoxia not secondary to acute coronary syndrome and/or plaque rupture. (7) End-stage renal disease (ESRD): Code(s): N18.6 - End stage renal disease Status: Acute Assessment and Plan: Peritoneal dialysis per Nephrology. (8) Ischemic cardiomyopathy: Code(s): I25.5 - Ischemic cardiomyopathy Status: Acute Assessment and Plan: Stable, chronic heart failure with reduced ejection fraction reasonably compensated. Volume management with Nephrology and peritoneal dialysis. (9) Community acquired pneumonia: Code(s): J18.9 - Pneumonia, unspecified organism Status: Acute Assessment and Plan: Management per primary service with antibiotics as appropriate. Chest x-ray with worsening left-sided infiltrate. CT chest pending. 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 Monitor for bleeding. (11) Status post fall: Code(s): Z91.81 - History of falling Status: Acute Assessment and Plan: PT OT eval. Management per primary service. Subjective Date/time seen: 10/07/21 08:44 Cardiology follow up for Afib, cardiomyopathy Patient remains ventilated in the ICU. No acute events overnight. On PD when I am seeing him. Remains in critical condition but stable. Review of Systems Review of Systems: All systems reviewed & are unremarkable except as noted in HPI and below ROS unobtainable: Yes unobtainable due to endotracheal tube and unobta
[2021-10-07 08:45] LABS: Glucose Point of Care 195 mg/dl (65-105)
--- NOTE | 2021-10-07 08:48 | WPDINTPN ---
Progress Note: A&P Assessment and Plan (1) Acute respiratory failure with hypoxia: Code(s): J96.01 - Acute respiratory failure with hypoxia Status: Acute Assessment and Plan: Acute Respiratory failure secondary to cardiac arrest, pneumonia and pulmonary edema Continue full mechanical ventilation support to prevent hypoxemia/hypercarbia and end organ damage. ABG and PCXR reviewed and will repeat in am. Currently on 40% FiO2 I have decrease PEEP to 8 Low tidal volume ventilation strategy to prevent volutrauma Chest CT reviewed Patient is already on anticoagulation but PE is another unlikely possibility. Unfortunately he is allergic to iodine contrast and heparin. He has end-stage renal disease and on PD. Lower extremity Dopplers were negative for DVT. Unable to do CTA due to allergy to contrast. Regarding anticoagulation heparin infusion and Lovenox are not an option. His claims that patient is allergic to heparin and I suspect patient may have a history of HIT although I do not see any documentation. For now, I will continue Eliquis but in case we need to switch who IV, I will switch him to argatroban. Daily sedation holiday Chest CT IMPRESSION: 1. Small right and large left pleural effusions. 2. Acute fractures of left second-sixth ribs. 3. 3.8 x 1.7 cm anterior mediastinal mass, increased from 1.9 x 1.6 cm on 10/03/21. This finding may be a combination of hematoma and a pre-existing mass such as thymoma or lymphoma. 5. Small volume of ascites with peritoneal dialysis catheter. 6. Mild bilateral external iliac lymphadenopathy, likely reactive. (2) End-stage renal disease on peritoneal dialysis: Code(s): N18.6 - End stage renal disease; Z99.2 - Dependence on renal dialysis Status: Acute Assessment and Plan: patient is being followed by Nephrology and is currently peritoneal dialysis. 10/[address] Combs and he will adjust dialysis to try to remove additional fluid (3) Cardiac arrest: Code(s): I46.9 - Cardiac arrest, cause unspecified Status: Acute Assessment and Plan: Its possible patient's cardiac arrest secondary to junctional bradycardia or slow AFib Echocardiogram is pending Troponins, although mildly elevated in presence of end-stage renal disease, remained flat EKG showed AFib/ junctional bradycardia with heart rate in 40s continue low-dose dopamine since patient is also hypotensive get his heart rate close to 60 he may need transvenous pacemaker and I have discussed with Cardiology cardiology is following continue Eliquis head CT was negative for any hemorrhage lead (4) Persistent atrial fibrillation: Code(s): I48.19 - Other persistent atrial fibrillation Status: Acute Assessment and Plan: currently in junctional bradycardia - see above (5) Bradycardia: Code(s): R00.1 - Bradycardia, unspecified Status: Chronic Assessment and Plan: see above (6) Pneumonia: Code(s): J18.9 - Pneumonia, unspecified organism Status: Acute Assessment and Plan: patient on the floor was being treated for community-acquired pneumonia antibiotics were broadened yesterday after intubation as possible patient may have aspirated continue vancomycin and Zosyn Cultures have been sent and are negative till now Procalcitonin level 6.4 (7) Insulin dependent diabetes mellitus: Status: Acute Assessment and Plan: Continue sliding scale insulin Increase dose of Lantus (8) Mediastinal mass: Code(s): J98.59 - Other diseases of mediastinum, not elsewhere classified Status: Acute Assessment and Plan: CT chest showed 3.8 x 1.7 cm anterior mediastinal mass, increased from 1.9 x 1.6 cm on 10/03/21. This finding may be a combination of hematoma and a pre-existing mass such as thymoma or lymphoma. He did get CPR with rib fractures which may lead to small hematoma. He has
--- NOTE | 2021-10-07 09:49 | PM.IMPN ---
Progress Note: A&P Assessment and Plan (1) Acute hyperkalemia: Code(s): E87.5 - Hyperkalemia Status: Acute Assessment and Plan: Nephrology recommended patient receive Lokelma 10 g x1. Patient did receive medication will monitor potassium level closely. Continue peritoneal dialysis nephrology consulted (2) Chronic kidney failure: Code(s): N18.9 - Chronic kidney disease, unspecified Status: Acute Assessment and Plan: Nephrology has been consult and do appreciate further recommendations. Will defer all recommendations for dialysis orders to Nephrology. (3) Bradycardia: Code(s): R00.1 - Bradycardia, unspecified Status: Chronic Assessment and Plan: Patient has chronic atrial fibrillation with a slow ventricular rate and is asymptomatic. 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 Patient to patient had cardiac arrest cardiology following currently in ICU Dopamine drip (4) Community acquired pneumonia: Code(s): J18.9 - Pneumonia, unspecified organism Status: Acute Assessment and Plan: Patient's CT scan shows a left pleural effusion with left infiltrates. Continue IV antibiotic. CT scan as below 1. Small right and large left pleural effusions. 2. Acute fractures of left second-sixth ribs. 3. 3.8 x 1.7 cm anterior mediastinal mass, increased from 1.9 x 1.6 cm on 10/03/21. This finding may be a combination of hematoma and a pre-existing mass such as thymoma or lymphoma. Repeat CT scan of the chest 10/07/2021 5. Small volume of ascites with peritoneal dialysis catheter (5) Status post fall: Code(s): Z91.81 - History of falling Status: Acute Assessment and Plan: PT OT evaluation (6) Acute respiratory failure with hypoxia: Code(s): J96.01 - Acute respiratory failure with hypoxia Status: Acute Assessment and Plan: Secondary to cardiac arrest on 10/04/2021 Status post CPR intubation admission to the ICU Probably multifactorial secondary to bone pneumonia pulmonary edema and pleural effusion May need aspiration of left pleural effusion (7) Abnormal CT scan, chest: Code(s): R93.89 - Abnormal findings on diagnostic imaging of other specified body structures Status: Acute Assessment and Plan: 1. Small right and large left pleural effusions. Monitor 2. Acute fractures of left second-sixth ribs. Pain control 3. 3.8 x 1.7 cm anterior mediastinal mass, increased from 1.9 x 1.6 cm on 10/03/21. This finding may be a combination of hematoma and a pre-existing mass such as thymoma or lymphoma. Follow-up with PCP as outpatient Subjective Date/time seen: 10/07/21 09:49 Interval history: Narrative: Mr. Gomez is a 65-year-old gentleman who presented to emergency room after tripping over the last step of his stairs and fell and struck his knees and his head. Patient states he only reason he came to the emergency room was secondary to the fact that he is on Eliquis and he was worried that he may have bleeding in his brain. Patient denies any loss of conscious, lightheadedness, dizziness, syncopal, or near syncopal episodes. Patient denies any chest discomfort, shortness breath, or palpitations prior to this episode. Patient denies any abdominal pain, nausea, vomiting, constipation, or diarrhea. Patient states he is a peritoneal dialysis patient and recently they have been trying to remove excess fluid from him and they have been using a new dialysis state. Upon evaluation in emergency room patient was noted to be bradycardic and have an elevated potassium. Of patient has episodes of bradycardia patient also has recent history of peritonitis completed course of antibiotics and still has lower extremity ulcer Patient has history of AICD which was removed due to infection, per patient there was plan to f
--- NOTE | 2021-10-07 10:44 | P.PNNP_ITS ---
Progress Note: A&P Assessment and Plan (1) End-stage renal disease (ESRD): Code(s): N18.6 - End stage renal disease Status: Acute Assessment and Plan: * continue CCPD treatment while hospitalized * He is still volume overloaded. Will add another 4.25% Dianeal tonight. * His potassium is okay. His BUN has come down some. (2) Cardiac arrest: Code(s): I46.9 - Cardiac arrest, cause unspecified Status: Acute Assessment and Plan: * etiology not clear * Cardiology following with recommendations noted * continue supportive care (3) Acute respiratory failure with hypoxia: Code(s): J96.01 - Acute respiratory failure with hypoxia Status: Acute Assessment and Plan: * secondary to cardiac arrest and pneumonia * continue ventilator support * follow culture data * He is on Zosyn and vancomycin. (4) Hyponatremia: Code(s): E87.1 - Hypo-osmolality and hyponatremia Status: Acute Assessment and Plan: * a bit lower than what he normally runs (135 - 136) * Level is relatively stable. * He is on Nepro which is hypertonic for tube feedings. (5) Hypotension: Code(s): I95.9 - Hypotension, unspecified Status: Acute Assessment and Plan: * Blood pressure fairly stable (6) Bradycardia: Code(s): R00.1 - Bradycardia, unspecified Status: Chronic Assessment and Plan: * apparently a chronic issue at baseline * Cardiology following * on dopamine to help (7) Community acquired pneumonia: Code(s): J18.9 - Pneumonia, unspecified organism Status: Acute Assessment and Plan: * as noted by admission and repeat imaging to date * follow culture data * on Zosyn and vancomycin (8) Anemia: Code(s): D64.9 - Anemia, unspecified Status: Chronic Assessment and Plan: * due to ESRD and possibly acute illness * Hold off on the Epogen because his hemoglobin is 11 Subjective Date/time seen: 10/07/21 10:44 Interval history: The patient is on the ventilator. He is sedated. He is on peritoneal dialysis. His fluid is clear. His treatment is finished. He had 1700cc off. Exam Narrative: WDWN Gentleman on the ventilator in the ICU sedated in NAD skin no rash head ncat lungs Coarse bilaterally. cor reg no rub abd BS+ nontender and soft ext 2+ edema and no cyanosis. Objective Data Vital Signs Vital Signs: Vital Signs - 24 hr 10/06/21 11:15 10/06/21 12:00 10/06/21 12:58 Temperature 36.4 C L Pulse Rate 56 L 58 L 57 L Respiratory Rate 19 Blood Pressure 104/61 Pulse Oximetry 99 97 10/06/21 13:03 10/06/21 13:21 10/06/21 14:00 Temperature 36.7 C Pulse Rate 57 L 57 L 57 L Respiratory Rate 18 Blood Pressure 60/40 L 103/60 Pulse Oximetry 97 95 10/06/21 14:36 10/06/21 14:43 10/06/21 15:35 Temperature Pulse Rate 58 L 62 68 Respiratory Rate 19 Blood Pressure 67/48 L 143/79 H Pulse Oximetry 10/06/21 16:00 10/06/21 16:38 10/06/21 16:58 Temperature Pulse Rate 65 65 65 Respiratory Rate 18 Blood Pressure 135/73 134/81 137/73 Pulse Oximetry 94 10/06/21 17:1
--- NOTE | 2021-10-07 10:44 | PM.PNNEP ---
Progress Note: A&P Assessment and Plan (1) End-stage renal disease (ESRD): Code(s): N18.6 - End stage renal disease Status: Acute Assessment and Plan: continue CCPD treatment while hospitalized He is still volume overloaded. Will add another 4.25% Dianeal tonight. His potassium is okay. His BUN has come down some. (2) Cardiac arrest: Code(s): I46.9 - Cardiac arrest, cause unspecified Status: Acute Assessment and Plan: etiology not clear Cardiology following with recommendations noted continue supportive care (3) Acute respiratory failure with hypoxia: Code(s): J96.01 - Acute respiratory failure with hypoxia Status: Acute Assessment and Plan: secondary to cardiac arrest and pneumonia continue ventilator support follow culture data He is on Zosyn and vancomycin. (4) Hyponatremia: Code(s): E87.1 - Hypo-osmolality and hyponatremia Status: Acute Assessment and Plan: a bit lower than what he normally runs (135 - 136) Level is relatively stable. He is on Nepro which is hypertonic for tube feedings. (5) Hypotension: Code(s): I95.9 - Hypotension, unspecified Status: Acute Assessment and Plan: Blood pressure fairly stable (6) Bradycardia: Code(s): R00.1 - Bradycardia, unspecified Status: Chronic Assessment and Plan: apparently a chronic issue at baseline Cardiology following on dopamine to help (7) Community acquired pneumonia: Code(s): J18.9 - Pneumonia, unspecified organism Status: Acute Assessment and Plan: as noted by admission and repeat imaging to date follow culture data on Zosyn and vancomycin (8) Anemia: Code(s): D64.9 - Anemia, unspecified Status: Chronic Assessment and Plan: due to ESRD and possibly acute illness Hold off on the Epogen because his hemoglobin is 11 Subjective Date/time seen: 10/07/21 10:44 Interval history: The patient is on the ventilator. He is sedated. He is on peritoneal dialysis. His fluid is clear. His treatment is finished. He had 1700cc off. Exam Narrative: WDWN Gentleman on the ventilator in the ICU sedated in NAD skin no rash head ncat lungs Coarse bilaterally. cor reg no rub abd BS+ nontender and soft ext 2+ edema and no cyanosis. Objective Data Vital Signs Vital Signs: Vital Signs - 24 hr 10/06/21 11:15 10/06/21 12:00 10/06/21 12:58 Temperature 36.4 C L Pulse Rate 56 L 58 L 57 L Respiratory Rate 19 Blood Pressure 104/61 Pulse Oximetry 99 97 10/06/21 13:03 10/06/21 13:21 10/06/21 14:00 Temperature 36.7 C Pulse Rate 57 L 57 L 57 L Respiratory Rate 18 Blood Pressure 60/40 L 103/60 Pulse Oximetry 97 95 10/06/21 14:36 10/06/21 14:43 10/06/21 15:35 Temperature Pulse Rate 58 L 62 68 Respiratory Rate 19 Blood Pressure 67/48 L 143/79 H Pulse Oximetry 10/06/21 16:00 10/06/21 16:38 10/06/21 16:58 Temperature Pulse Rate 65 65 65 Respiratory Rate 18 Blood Pressure 135/73 134/81 137/73 Pulse Oximetry 94 10/06/21 17:18 10/06/21 17:49 10/06/21 18:00 Temperature 36.3 C L Pulse Rate 66 63 62 Respiratory Rate 18 Blood Pressure 134/70 122/64 Pulse Oximetry 93 97 10/06/21 20:00 10/06/21 20:07 10/06/21 20:24 Temperature 36.7 C Pulse Rate 60 60 67 Respiratory Rate 18 Blood Pressure 122/67 117/67 Pulse Oximetry 97 98 10/06/21 21:57 10/06/21 22:00 10/06/21 23:20 Temperature Pulse Rate 59 L 59 L 57 L Respiratory Rate 18 Blood Pressure 113/65 Pulse Oximetry 97 98 10/06/21 23:55 10/06/21 23:59 10/07/21 00:00 Temperature 36.6 C Pulse Rate 58 L 57 L Respiratory Rate 18 Blood Pressure 121/70 Pulse Oximetry 96 98 10/07/21 00:40 10/07/21 02:00 10/07/21 02:29 Temperature Pulse Rate 57 L 58 L 58 L Respiratory Rate 18 18 Blood Pressure 120/71 Pulse Oximetry 97 97
--- NOTE | 2021-10-07 11:52 | PCNFU ---
Nutrition Follow-Up Complete: Inadequate Oral Intake as related to mechanical ventilation as evidenced by NPO. Goal: Meet estimated nutritional needs Patient is progressing towards goal. We will continue current goal. Pt current nutrition is Nepro at 30 ml/hr over 22 hours. Last recorded weight is 131.8 kg, up from 122.5 kg on admit. Bowel Motility:No BM reported. Labs Reviewed:Glu 237, PO4 7.5,Na 126, BUN 76,Hct 32.5,Hgb 11.0 Meds Noted:Reglan,Versed, Fentanyl, Eliquis, Cymbalta, Renvela, Lantus Skin: Venous status-Left lower leg/right foot. Additional Notes: Patient remains on mechanical vent currently on CMV mode. Tube feedings are of Nepro at 30 ml/hr over 22 hours. Residuals today-high 200s. Patient tube feeding goal rate is at 45 ml/hr, which will provide 1782 kcals/80 gms protein/720 ml water. Free water flush 30 ml q 4 hours. Agree with diet orders. Monitoring: Will be following in ICU rounds and reassessing every Wednesday and Wednesday.
[2021-10-07 13:43] LABS: Glucose Point of Care 122 mg/dl (65-105)
[2021-10-07 16:58] LABS: Glucose Point of Care 153 mg/dl (65-105)
[2021-10-07 20:13] LABS: Glucose Point of Care 160 mg/dl (65-105)
[2021-10-07] MEDS: MINERAL OIL/WHITE PETROLATUM OINTMENT 1 APPLIC EACH EYE (20:22)
[2021-10-07] MEDS: ROSUVASTATIN 10 MG TABLET PO (20:22)
[2021-10-07 23:57] LABS: Glucose Point of Care 189 mg/dl (65-105)
[2021-10-08] VITALS (27 sets, daily range): BP systolic 69–130; BP diastolic 48–78; PULSE 60–74; RESP 18; TEMP 36.1–36.6; O2SAT 88–97
[2021-10-08] MEDS: METOCLOPRAMIDE HCL 10 MG/10 ML SOLN UDC PO (04:39)
[2021-10-08] MEDS: INSULIN ASPART (*BKC) 100 UNITS/ML SUB-Q ×6 (04:39→23:50)
[2021-10-08 05:38] LABS: Alveolar/Arterial O2 Gradient 169.2 mmHg; Carboxyhemoglobin 0.5 % THb (0-2.0); Fractional Inspired Oxygen 40 %; HCO3 ABG 24.3 mEq/l (22.0-26.0); Methemoglobin ABG 0.4 %THb (0-1.5); Oxygen Content ABG 18.1 %vol (16.0-22.0); Oxygen Saturation ABG 94.8 % (95.0-100.0); Oxyhemoglobin 93.3 % THb (90.0-100.0); PCO2 ABG 38.3 mmHg (35.0-45.0); Reduced Hemoglobin 5.8 %THb (0-5.0); Total Hemoglobin 13.8 g/dL (12.0-18.0)
[2021-10-08 05:39] LABS: Arterial Blood Gas PEEP 8 cmH2O; Arterial Blood Gas Vent Mode CMV; Arterial Blood Gas Ventilator rate 18 /MIN; Device VENTILATOR; Modified Allen's Test Pass; Site Drawn LEFT RADIAL
[2021-10-08 05:40] LABS: Arterial Blood Gas Tidal Volume 450 ml
[2021-10-08] MEDS: CENTRAL LINE FLUSH 10 ML IV PUSH ×3 (06:02→20:28)
[2021-10-08] MEDS: DOPamine 400 MG/D5W 250 ML 400 MG/250 ML BAG 38.59 MG IV CONT (06:02)
[2021-10-08] MEDS: ALBUMIN HUMAN 25% 12.5 GM/50ML 50 ML IVPB (06:25)
[2021-10-08] MEDS: MIDAZOLAM 100MG/NS 100ML(*CRX) 100 MG/100 ML BAG IV CONT (07:47)
--- NOTE | 2021-10-08 07:55 | WPDINTPN ---
Progress Note: A&P Assessment and Plan (1) Acute respiratory failure with hypoxia: Code(s): J96.01 - Acute respiratory failure with hypoxia Status: Acute Assessment and Plan: Acute Respiratory failure secondary to cardiac arrest, pneumonia and pulmonary edema. Intubated on 10/04/2021 during code blue Continue full mechanical ventilation support to prevent hypoxemia/hypercarbia and end organ damage. ABG and PCXR reviewed and will repeat in am. Currently on 40% FiO2 and peep of 8 Low tidal volume ventilation strategy to prevent volutrauma Chest CT reviewed Patient is already on anticoagulation but PE is another unlikely possibility. Unfortunately he is allergic to iodine contrast and heparin. He has end-stage renal disease and on PD. Lower extremity Dopplers were negative for DVT. Unable to do CTA due to allergy to contrast. Regarding anticoagulation heparin infusion and Lovenox are not an option. His claims that patient is allergic to heparin and I suspect patient may have a history of HIT although I do not see any documentation. For now, I will continue Eliquis but in case we need to switch who IV, I will switch him to argatroban. - on Fentanyl and versed for sedation, will continue daily sedation holiday 10/07/2021: Chest CT IMPRESSION: 1. Small right and large left pleural effusions. 2. Acute fractures of left second-sixth ribs. 3. 3.8 x 1.7 cm anterior mediastinal mass, increased from 1.9 x 1.6 cm on 10/03/21. This finding may be a combination of hematoma and a pre-existing mass such as thymoma or lymphoma. 5. Small volume of ascites with peritoneal dialysis catheter. 6. Mild bilateral external iliac lymphadenopathy, likely reactive. (2) End-stage renal disease on peritoneal dialysis: Code(s): N18.6 - End stage renal disease; Z99.2 - Dependence on renal dialysis Status: Acute Assessment and Plan: patient is being followed by Nephrology and is currently peritoneal dialysis. -will d/w Dr. Combs and he will adjust dialysis to try to remove additional fluid (3) Cardiac arrest: Code(s): I46.9 - Cardiac arrest, cause unspecified Status: Acute Assessment and Plan: Its possible patient's cardiac arrest secondary to junctional bradycardia or slow AFib Troponins, although mildly elevated in presence of end-stage renal disease, remained flat EKG showed AFib/ junctional bradycardia with heart rate in 40s - wean Dopamine to maintain HR 50-60s - he may need transvenous pacemaker and I have discussed with Cardiology - cardiology is following - continue Eliquis head CT was negative for any hemorrhage 10/06/2021 Echo: - mild LVH; moderate-severe LV systolic dysfunction, ejection fraction about 30-35% - Moderate-severe aortic stenosis - Moderate pulmonary hypertension, RVSP 54 mmHg (4) Persistent atrial fibrillation: Code(s): I48.19 - Other persistent atrial fibrillation Status: Acute Assessment and Plan: currently in junctional bradycardia - see above (5) Bradycardia: Code(s): R00.1 - Bradycardia, unspecified Status: Chronic Assessment and Plan: see above (6) Pneumonia: Code(s): J18.9 - Pneumonia, unspecified organism Status: Acute Assessment and Plan: patient on the floor was being treated for community-acquired pneumonia antibiotics were broadened yesterday after intubation as possible patient may have aspirated continue vancomycin and Zosyn Cultures have been sent and are negative till now Procalcitonin level 6.4 10/08: leukocystosis persists (7) Insulin dependent diabetes mellitus: Status: Acute Assessment and Plan: Continue sliding scale insulin -Increase dose of Lantus (8) Mediastinal mass: Code(s): J98.59 - Other diseases of mediastinum, not elsewhere classified Status: Acute Assessment and Plan: CT chest showed 3.8 x 1.7 cm anterior mediastinal mass, in
[2021-10-08] MEDS: BRIMONIDINE TARTRATE 0.2% OP SOLN 5 ML BTL 1 DROP EACH EYE ×2 (07:59→20:25)
[2021-10-08] MEDS: DORZOLAMIDE/TIMOLOL OPHTH SOL 10 ML BOTTLE 1 DROP EACH EYE ×2 (07:59→20:27)
[2021-10-08 08:00] LABS: Glucose Point of Care 328 mg/dl (65-105)
[2021-10-08 08:00] LABS: Glucose Point of Care 253 mg/dl (65-105)
[2021-10-08] MEDS: BUMETANIDE 1 MG TABLET 2 MG BY MOUTH (08:00)
[2021-10-08] MEDS: DULoxetine HCL 60 MG CAPSULE.DR PO (08:00)
[2021-10-08] MEDS: MUPIROCIN 2% OINT 22 GM TUBE 1 APPLIC TOPICAL (08:00)
[2021-10-08] MEDS: allopurinoL 100 MG TABLET PO (08:00)
[2021-10-08] MEDS: MINERAL OIL/WHITE PETROLATUM OINTMENT 1 APPLIC EACH EYE ×2 (08:00→20:27)
[2021-10-08] MEDS: APIXABAN 5 MG TABLET PO ×2 (08:00→20:26)
[2021-10-08] MEDS: SEVELAMER CARBONATE 800 MG TABLET 1600 MG BY MOUTH ×2 (08:00→16:53)
--- NOTE | 2021-10-08 08:00 | P.PNNP_ITS ---
Progress Note: A&P Assessment and Plan (1) End-stage renal disease (ESRD): Code(s): N18.6 - End stage renal disease Status: Acute Assessment and Plan: * continue CCPD treatment while hospitalized * He is still volume overloaded. he had 2 greens and 1 red last night. Will change this to 1 green and 2 reds for tonight. * His potassium is okay. His BUN has come down some. * He needs more fluid off. However his low blood pressure is per venting us from doing that. Perhaps with Levophed he will get more fluid off with the PD. We may need to switch to hemodialysis at some point. His BUN, however, is improving with the higher dose PD. * Overall condition is fairly poor. Prognosis is not good. * Discussed with Dr. Zafar (2) Cardiac arrest: Code(s): I46.9 - Cardiac arrest, cause unspecified Status: Acute Assessment and Plan: * etiology not clear * Cardiology following with recommendations noted * continue supportive care (3) Acute respiratory failure with hypoxia: Code(s): J96.01 - Acute respiratory failure with hypoxia Status: Acute Assessment and Plan: * secondary to cardiac arrest and pneumonia * continue ventilator support * follow culture data * He is on Zosyn and vancomycin. (4) Hyponatremia: Code(s): E87.1 - Hypo-osmolality and hyponatremia Status: Acute Assessment and Plan: * Still low but stable. (5) Hypotension: Code(s): I95.9 - Hypotension, unspecified Status: Acute Assessment and Plan: * Blood pressure Is low. He is on Levophed now. (6) Bradycardia: Code(s): R00.1 - Bradycardia, unspecified Status: Chronic Assessment and Plan: * apparently a chronic issue at baseline * Cardiology following * Heart rate is improved. (7) Community acquired pneumonia: Code(s): J18.9 - Pneumonia, unspecified organism Status: Acute Assessment and Plan: * as noted by admission and repeat imaging to date * follow culture data * on Zosyn and vancomycin (8) Anemia: Code(s): D64.9 - Anemia, unspecified Status: Chronic Assessment and Plan: * due to ESRD and possibly acute illness * Hold off on the Epogen because his hemoglobin is 11 Subjective Date/time seen: 10/08/21 08:00 Interval history: The patient is on the ventilator. He is sedated. He is on peritoneal dialysis. His fluid is clear. His treatment is Still not finished. Only 300 cc or so removed so far. Blood pressure was low overnight. He is now on a Levophed drip. His dopamine is being weaned. His residuals are high and he is not had a bowel movement. Exam Narrative: WDWN Gentleman on the ventilator in the ICU sedated in NAD skin no rash head ncat lungs Coarse bilaterally. cor reg no rub abd BS+ nontender and soft ext 2+ edema and no cyanosis. Objective Data Vital Signs Vital Signs: Vital Signs - 24 hr 10/07/21 17:13 10/07/21 17:14 10/07/21 17:56 Temperature Pulse Rate 59 L 60 60 Respiratory Rate Blood Pressure 118/73 118/73 Pulse Oximetry 95 10/07/21 18:00 10/07/21 19:46 10/07/21 20:00 Temperature 36.2 C L Pulse Rate 59 L 60 59 L Respiratory Rate 18 18 Blood Pressure 113/70 109/69 Pulse Oximetry 94 94
--- NOTE | 2021-10-08 08:00 | PM.PNNEP ---
Progress Note: A&P Assessment and Plan (1) End-stage renal disease (ESRD): Code(s): N18.6 - End stage renal disease Status: Acute Assessment and Plan: continue CCPD treatment while hospitalized He is still volume overloaded. he had 2 greens and 1 red last night. Will change this to 1 green and 2 reds for tonight. His potassium is okay. His BUN has come down some. He needs more fluid off. However his low blood pressure is per venting us from doing that. Perhaps with Levophed he will get more fluid off with the PD. We may need to switch to hemodialysis at some point. His BUN, however, is improving with the higher dose PD. Overall condition is fairly poor. Prognosis is not good. Discussed with Dr. Zafar (2) Cardiac arrest: Code(s): I46.9 - Cardiac arrest, cause unspecified Status: Acute Assessment and Plan: etiology not clear Cardiology following with recommendations noted continue supportive care (3) Acute respiratory failure with hypoxia: Code(s): J96.01 - Acute respiratory failure with hypoxia Status: Acute Assessment and Plan: secondary to cardiac arrest and pneumonia continue ventilator support follow culture data He is on Zosyn and vancomycin. (4) Hyponatremia: Code(s): E87.1 - Hypo-osmolality and hyponatremia Status: Acute Assessment and Plan: Still low but stable. (5) Hypotension: Code(s): I95.9 - Hypotension, unspecified Status: Acute Assessment and Plan: Blood pressure Is low. He is on Levophed now. (6) Bradycardia: Code(s): R00.1 - Bradycardia, unspecified Status: Chronic Assessment and Plan: apparently a chronic issue at baseline Cardiology following Heart rate is improved. (7) Community acquired pneumonia: Code(s): J18.9 - Pneumonia, unspecified organism Status: Acute Assessment and Plan: as noted by admission and repeat imaging to date follow culture data on Zosyn and vancomycin (8) Anemia: Code(s): D64.9 - Anemia, unspecified Status: Chronic Assessment and Plan: due to ESRD and possibly acute illness Hold off on the Epogen because his hemoglobin is 11 Subjective Date/time seen: 10/08/21 08:00 Interval history: The patient is on the ventilator. He is sedated. He is on peritoneal dialysis. His fluid is clear. His treatment is Still not finished. Only 300 cc or so removed so far. Blood pressure was low overnight. He is now on a Levophed drip. His dopamine is being weaned. His residuals are high and he is not had a bowel movement. Exam Narrative: WDWN Gentleman on the ventilator in the ICU sedated in NAD skin no rash head ncat lungs Coarse bilaterally. cor reg no rub abd BS+ nontender and soft ext 2+ edema and no cyanosis. Objective Data Vital Signs Vital Signs: Vital Signs - 24 hr 10/07/21 17:13 10/07/21 17:14 10/07/21 17:56 Temperature Pulse Rate 59 L 60 60 Respiratory Rate Blood Pressure 118/73 118/73 Pulse Oximetry 95 10/07/21 18:00 10/07/21 19:46 10/07/21 20:00 Temperature 36.2 C L Pulse Rate 59 L 60 59 L Respiratory Rate 18 18 Blood Pressure 113/70 109/69 Pulse Oximetry 94 94 10/07/21 21:15 10/07/21 22:00 10/07/21 22:26 Temperature Pulse Rate 60 60 59 L Respiratory Rate 18 Blood Pressure 96/67 L 96/67 L Pulse Oximetry 94 93 10/07/21 23:20 10/08/21 00:00 10/08/21 02:00 Temperature 36.3 C L Pulse Rate 64 60 60 Respiratory Rate 18 18 Blood Pressure 89/64 L 86/60 L Pulse Oximetry 91 92 93 10/08/21 02:13 10/08/21 02:40 10/08/21 04:00 Temperature 36.2 C L Pulse Rate 62 66 68 Respiratory Rate 18 Blood Pressure 86/60 L 107/69 Pulse Oximetry 94 92 10/08/21 04:55 10/08/21 05:25 10/08/21 06:00 Temperature Pulse Rate 74 71 74 Respiratory Rate 18 Blood Pressure 125/78 125/
[2021-10-08 08:01] LABS: Glucose Point of Care 277 mg/dl (65-105)
[2021-10-08] MEDS: SILVER SULFADIAZINE 1% CR 50 GM JAR (*BKC) 1 APPLIC TOPICAL (08:01)
[2021-10-08] MEDS: SOD HYPOCHLORITE 1/4 STRENGTH 473 ML 1 APPLIC TOPICAL (08:01)
[2021-10-08] MEDS: INSULIN GLARGINE (*BKC) 100 UNITS/ML 30 UNITS SUB-Q (08:29)
[2021-10-08 09:08] LABS: Hematocrit 33.9 % (42.0-52.0); Hemoglobin 11.4 g/dL (14.0-18.0); Mean Corpuscular HGB Conc 33.6 g/dl (32-36); Mean Corpuscular Hemoglobin 31.3 pg (26-34); Mean Corpuscular Volume 93.1 fl (80-100); Mean Platelet Volume 10.7 fl (7.4-10.4); Platelet Count Result 341 k/mm3 (150-375); Red Blood Count 3.64 M/mm3 (4.6-6.20); Red Cell Distribution Width 15.9 % (11.5-14.5); White Blood Count 16.3 K/mm3 (4.5-10.0)
[2021-10-08 09:13] LABS: Alanine Aminotransferase 10 U/L (4-50); Albumin Level 3.8 g/dL (3.5-5.1); Alkaline Phosphatase 81 U/L (38-126); Anion Gap 16 mmol/L (8-16); Aspartate Amino Transferase 18 U/L (17-59); Bilirubin,Total 1.4 mg/dL (0.2-1.3); Blood Urea Nitrogen 74 mg/dL (9-20); Calcium 8.2 mg/dL (8.4-10.2); Carbon Dioxide 24 mmol/L (22-30); Chloride 86 mmol/L (98-107); Estimated CRCL calculation 12 ml/min; Estimated Glomerular Filt Rate 7; Glucose 339 mg/dL (65-110); Magnesium 2.2 mg/dL (1.6-2.3); Phosphorus 7.8 mg/dL (2.5-4.5); Potassium 4.3 mmol/L (3.4-5.0); Sodium 126 mmol/L (137-145)
[2021-10-08 09:44] LABS: Vancomycin Random 19.2 ug/mL (10-20)
--- NOTE | 2021-10-08 10:45 | PM.IMPN ---
Progress Note: A&P Assessment and Plan (1) Acute hyperkalemia: Code(s): E87.5 - Hyperkalemia Status: Acute Assessment and Plan: Nephrology consult patient receive Lokelma 10 g x1. resolved . Continue peritoneal dialysis nephrology consulted (2) Chronic kidney failure: Code(s): N18.9 - Chronic kidney disease, unspecified Status: Acute Assessment and Plan: Nephrology has been consult and do appreciate further recommendations. defer all recommendations for dialysis orders to Nephrology. (3) Bradycardia: Code(s): R00.1 - Bradycardia, unspecified Status: Chronic Assessment and Plan: Patient has chronic atrial fibrillation with a slow ventricular rate and is asymptomatic. It has been discussed that patient may need a pacemaker/ICD placed but at this time patient's [facility] is not decided to place another device. Patient to patient had cardiac arrest cardiology following currently in ICU Dopamine drip 10/06/21 (4) Community acquired pneumonia: Code(s): J18.9 - Pneumonia, unspecified organism Status: Acute Assessment and Plan: Patient's CT scan shows a left pleural effusion with left infiltrates. Continue IV antibiotic. CT scan as below 1. Small right and large left pleural effusions. 2. Acute fractures of left second-sixth ribs. 3. 3.8 x 1.7 cm anterior mediastinal mass, increased from 1.9 x 1.6 cm on 10/03/21. This finding may be a combination of hematoma and a pre-existing mass such as thymoma or lymphoma. Repeat CT scan of the chest 10/07/2021 5. Small volume of ascites with peritoneal dialysis catheter (5) Status post fall: Code(s): Z91.81 - History of falling Status: Acute Assessment and Plan: PT OT evaluation (6) Acute respiratory failure with hypoxia: Code(s): J96.01 - Acute respiratory failure with hypoxia Status: Acute Assessment and Plan: Secondary to cardiac arrest on 10/04/2021 Status post CPR intubation admission to the ICU Probably multifactorial secondary to bone pneumonia pulmonary edema and pleural effusion May need aspiration of left pleural effusion (7) Abnormal CT scan, chest: Code(s): R93.89 - Abnormal findings on diagnostic imaging of other specified body structures Status: Acute Assessment and Plan: 1. Small right and large left pleural effusions. Monitor 2. Acute fractures of left second-sixth ribs. Pain control 3. 3.8 x 1.7 cm anterior mediastinal mass, increased from 1.9 x 1.6 cm on 10/03/21. This finding may be a combination of hematoma and a pre-existing mass such as thymoma or lymphoma. Follow-up with PCP as outpatient Subjective Date/time seen: 10/08/21 10:45 Interval history: Narrative: Mr. Gomez is a 65-year-old gentleman who presented to emergency room after tripping over the last step of his stairs and fell and struck his knees and his head. Patient states he only reason he came to the emergency room was secondary to the fact that he is on Eliquis and he was worried that he may have bleeding in his brain. Patient denies any loss of conscious, lightheadedness, dizziness, syncopal, or near syncopal episodes. Patient denies any chest discomfort, shortness breath, or palpitations prior to this episode. Patient denies any abdominal pain, nausea, vomiting, constipation, or diarrhea. Patient states he is a peritoneal dialysis patient and recently they have been trying to remove excess fluid from him and they have been using a new dialysis state. Upon evaluation in emergency room patient was noted to be bradycardic and have an elevated potassium. Of patient has episodes of bradycardia patient also has recent history of peritonitis completed course of antibiotics and still has lower extremity ulcer Patient has history of AICD which was removed due to infection, per patient there was plan to for possible inserting another AICD in the future. On 10/04/2021 guillermina
--- NOTE | 2021-10-08 11:42 | PCFNICU ---
ICU Rounding Note: Pt current nutrition is Nepro at 30 ml/hr. Last recorded weight is 134.1 kg, up from 122.5 kg on admit. Bowel Motility: No BM reported. Labs Reviewed: Glu 339, BUN 74, GFR 7, Cr 7.7,Hct 33.9,Hgb 11.4,Na 126 Meds Noted:Reglan, Miralax, Protonix, Versed, Fentanyl, Bumex, Dopamine, Crestor, Zosyn, Cymbalta, Renvela. Skin: Right foot-diabetic foot ulcer, Left lower leg-venous status ulcer. Additional Notes: Patient remains on mechanical vent, CMV mode. Tube feedings currently on hold due to elevated residuals of 500 this morning. Obstructive series had been ordered. KUB showing no obstruction. Plans for tube feedings to restart. Recommend goal rate of tube feeding of Nepro at 45 ml/hr over 22 hours providing 1782 kcals/80 gms protein/720 ml water. Free water flush 30 ml q 4 hours. Monitoring: Following daily in ICU rounds. Will be reassessing every Wednesday and Wednesday.
[2021-10-08 13:02] LABS: Glucose Point of Care 263 mg/dl (65-105)
[2021-10-08] MEDS: polyethylene glycoL 3350 17 GM POWD.PACK PO (13:18)
[2021-10-08] MEDS: METOCLOPRAMIDE HCL INJ 10 MG/2 ML VIAL IV PUSH ×3 (13:18→23:51)
[2021-10-08] MEDS: PANTOPRAZOLE SODIUM IV 40 MG VIAL IV PUSH (13:18)
[2021-10-08 14:19] LABS: Hepatitis B Core Ab Total Nonreactive (Nonreactive)
[2021-10-08] MEDS: DOPamine 400 MG/D5W 250 ML 400 MG/250 ML BAG 25.73 MG IV CONT (15:12)
[2021-10-08 16:57] LABS: Glucose Point of Care 224 mg/dl (65-105)
[2021-10-08] MEDS: ROSUVASTATIN 10 MG TABLET PO (20:27)
[2021-10-08 20:49] LABS: Glucose Point of Care 209 mg/dl (65-105)
[2021-10-08] MEDS: FENTANYL 2,500MCG/NS250ML(*CRX 2,500 MCG/250 ML BAG IV CONT (22:00)
[2021-10-08 23:48] LABS: Glucose Point of Care 202 mg/dl (65-105)
[2021-10-09] VITALS (43 sets, daily range): BP systolic 51–155; BP diastolic 33–77; PULSE 60–75; RESP 18–20; TEMP 36–36.7; O2SAT 93–98
[2021-10-09] MEDS: DOPamine 400 MG/D5W 250 ML 400 MG/250 ML BAG 25.73 MG IV CONT ×3 (02:19→22:48)
[2021-10-09] MEDS: INSULIN ASPART (*BKC) 100 UNITS/ML SUB-Q ×6 (03:22→23:54)
[2021-10-09 03:38] LABS: Glucose Point of Care 295 mg/dl (65-105)
[2021-10-09] MEDS: METOCLOPRAMIDE HCL INJ 10 MG/2 ML VIAL IV PUSH ×4 (04:02→23:54)
[2021-10-09] MEDS: CENTRAL LINE FLUSH 10 ML IV PUSH ×3 (05:11→22:48)
[2021-10-09 05:12] LABS: Alveolar/Arterial O2 Gradient 167.9 mmHg; Base Excess ABG -0.8 mEq/l (+/-2.0); Carboxyhemoglobin 0.1 % THb (0-2.0); Fractional Inspired Oxygen 40 %; HCO3 ABG 22.4 mEq/l (22.0-26.0); Methemoglobin ABG 0.3 %THb (0-1.5); Oxygen Content ABG 17.1 %vol (16.0-22.0); Oxygen Saturation ABG 96.4 % (95.0-100.0); Oxyhemoglobin 94.9 % THb (90.0-100.0); PCO2 ABG 32.6 mmHg (35.0-45.0); PO2 ABG 79.8 mmHg (80.0-100.0); Reduced Hemoglobin 4.7 %THb (0-5.0); Total Hemoglobin 12.8 g/dL (12.0-18.0); pH ABG 7.455 (7.350-7.450)
[2021-10-09 05:17] LABS: Device VENTILATOR; Modified Allen's Test Pass; Site Drawn LEFT RADIAL
[2021-10-09 05:18] LABS: Arterial Blood Gas PEEP 8 cmH2O; Arterial Blood Gas Tidal Volume 450 ml; Arterial Blood Gas Vent Mode CMV; Arterial Blood Gas Ventilator rate 18 /MIN
--- NOTE | 2021-10-09 07:45 | WPDINTPN ---
Progress Note: A&P Assessment and Plan (1) Acute respiratory failure with hypoxia: Code(s): J96.01 - Acute respiratory failure with hypoxia Status: Acute Assessment and Plan: Acute Respiratory failure secondary to cardiac arrest, pneumonia, pulmonary edema, left pleural effusion. Intubated on 10/04/2021 during code blue - Continue full mechanical ventilation support to prevent hypoxemia/hypercarbia and end organ damage. - ABG and PCXR reviewed, Currently on 40% FiO2 and peep of 8 - Low tidal volume ventilation strategy to prevent volutrauma - Patient is already on anticoagulation but PE is another unlikely possibility. Unfortunately he is allergic to iodine contrast and heparin. He has end-stage renal disease and on PD. - Lower extremity Dopplers were negative for DVT. Unable to do CTA due to allergy to contrast. - Regarding anticoagulation heparin infusion and Lovenox are not an option. His claims that patient is allergic to heparin and I suspect patient may have a history of HIT although I do not see any documentation. For now, I will continue Eliquis but in case we need to switch who IV, I will switch him to argatroban. - on Fentanyl and versed for sedation, will continue daily sedation holiday 10/07/2021: Chest CT IMPRESSION: 1. Small right and large left pleural effusions. 2. Acute fractures of left second-sixth ribs. 3. 3.8 x 1.7 cm anterior mediastinal mass, increased from 1.9 x 1.6 cm on 10/03/21. This finding may be a combination of hematoma and a pre-existing mass such as thymoma or lymphoma. 5. Small volume of ascites with peritoneal dialysis catheter. 6. Mild bilateral external iliac lymphadenopathy, likely reactive. (2) End-stage renal disease on peritoneal dialysis: Code(s): N18.6 - End stage renal disease; Z99.2 - Dependence on renal dialysis Status: Acute Assessment and Plan: patient is being followed by Nephrology and is currently peritoneal dialysis. -will d/w Dr. Combs and he will adjust dialysis to try to remove additional fluid (3) Cardiac arrest: Code(s): I46.9 - Cardiac arrest, cause unspecified Status: Acute Assessment and Plan: Its possible patient's cardiac arrest secondary to junctional bradycardia or slow AFib Troponins, although mildly elevated in presence of end-stage renal disease, remained flat EKG showed AFib/ junctional bradycardia with heart rate in 40s - wean Dopamine to maintain HR 50-60s - he may need transvenous pacemaker and I have discussed with Cardiology - cardiology is following - continue Eliquis - head CT was negative for any hemorrhage 10/06/2021 Echo: - mild LVH; moderate-severe LV systolic dysfunction, ejection fraction about 30-35% - Moderate-severe aortic stenosis - Moderate pulmonary hypertension, RVSP 54 mmHg (4) Persistent atrial fibrillation: Code(s): I48.19 - Other persistent atrial fibrillation Status: Acute Assessment and Plan: currently in junctional bradycardia - see above - continue Eliquis (5) Bradycardia: Code(s): R00.1 - Bradycardia, unspecified Status: Chronic Assessment and Plan: see above (6) Pneumonia: Code(s): J18.9 - Pneumonia, unspecified organism Status: Acute Assessment and Plan: patient on the floor was being treated for community-acquired pneumonia antibiotics were broadened yesterday after intubation as possible patient may have aspirated continue vancomycin and Zosyn Cultures have been sent and are negative till now Procalcitonin level 6.4 10/08: leukocystosis persists (7) Insulin dependent diabetes mellitus: Status: Acute Assessment and Plan: Continue sliding scale insulin -Increase dose of Lantus (8) Mediastinal mass: Code(s): J98.59 - Other diseases of mediastinum, not elsewhere classified Status: Acute Assessment and Plan: CT chest showed 3.8 x 1.7 cm anterior mediastina
[2021-10-09] MEDS: allopurinoL 100 MG TABLET PO (08:40)
[2021-10-09] MEDS: SEVELAMER CARBONATE 800 MG TABLET 1600 MG BY MOUTH ×3 (08:40→16:20)
[2021-10-09] MEDS: PANTOPRAZOLE SODIUM IV 40 MG VIAL IV PUSH (08:41)
[2021-10-09] MEDS: BRIMONIDINE TARTRATE 0.2% OP SOLN 5 ML BTL 1 DROP EACH EYE ×2 (08:41→20:42)
[2021-10-09] MEDS: DULoxetine HCL 60 MG CAPSULE.DR PO (08:41)
[2021-10-09] MEDS: MUPIROCIN 2% OINT 22 GM TUBE 1 APPLIC TOPICAL (08:41)
[2021-10-09] MEDS: APIXABAN 5 MG TABLET PO ×2 (08:41→20:42)
[2021-10-09] MEDS: DORZOLAMIDE/TIMOLOL OPHTH SOL 10 ML BOTTLE 1 DROP EACH EYE ×2 (08:41→20:42)
[2021-10-09] MEDS: polyethylene glycoL 3350 17 GM POWD.PACK PO (08:42)
[2021-10-09] MEDS: SILVER SULFADIAZINE 1% CR 50 GM JAR (*BKC) 1 APPLIC TOPICAL (08:42)
[2021-10-09] MEDS: MINERAL OIL/WHITE PETROLATUM OINTMENT 1 APPLIC EACH EYE ×2 (08:43→20:42)
[2021-10-09] MEDS: SOD HYPOCHLORITE 1/4 STRENGTH 473 ML 1 APPLIC TOPICAL (08:43)
[2021-10-09] MEDS: INSULIN GLARGINE (*BKC) 100 UNITS/ML 36 UNITS SUB-Q (08:44)
[2021-10-09 08:59] LABS: Glucose Point of Care 306 mg/dl (65-105)
--- NOTE | 2021-10-09 10:39 | PCFNICU ---
ICU Rounding Note: Pt current nutrition is Vital AF 1.2 at 10 ml/hr. Last recorded weight is 138.6 kg, up from 122.5 kg on admit. Bowel Motility:No BM reported. Labs Reviewed: No labs to report. Meds Noted:Miralax, Protonix, Versed, Fentanyl, Bumex, Dopamine, Crestor, Zosyn, Cymbalta, Renvela. Skin: left lower leg-venous status, Right foot-venous status. Additional Notes: Patient remains on mechanical vent, CMV mode. Tube feeding remain on hold due to elevated residuals. Spoke with MD today regarding tube feeding change. Orders for peptide-based formula of Vital AF 1.2 at 10 ml/hr over 22 hours. Free water flush 30 ml q 4 hours. Agree with diet orders. Following daily in ICU rounds. Will be reassessing every Wednesday and Wednesday.
[2021-10-09 11:54] LABS: Glucose Point of Care 315 mg/dl (65-105)
[2021-10-09 12:09] LABS: Basophils Absolute Auto 0.1 K/mm3 (0.0-0.1); Basophils Percent Auto 0.6 % (0.2-1.2); Eosinophils Absolute Auto 0.7 K/mm3 (0-0.3); Eosinophils Percent Auto 4.1 % (0-4.4); Hemoglobin 12.2 g/dL (14.0-18.0); Immature Granulocyte Absolute 0.21 K/mm3 (0.00-0.031); Immature Granulocyte Percent A 1.2 % (0-0.5); Lymphocytes Absolute Auto 0.66 K/mm3 (0.9-3.2); Lymphocytes Percent Auto 3.9 % (18.3-44.2); Mean Corpuscular HGB Conc 33.9 g/dl (32-36); Mean Corpuscular Hemoglobin 31.2 pg (26-34); Mean Corpuscular Volume 92.1 fl (80-100); Mean Platelet Volume 11.2 fl (7.4-10.4); Monocytes Absolute Auto 1.3 K/mm3 (0.1-0.6); Monocytes Percent Auto 7.4 % (2.6-8.5); Neutrophils Absolute Auto 13.9 K/mm3 (1.3-6.7); Neutrophils Percent Auto 82.8 % (45.5-73.1); Platelet Count Result 351 k/mm3 (150-375); Red Blood Count 3.91 M/mm3 (4.6-6.20); Red Cell Distribution Width 15.9 % (11.5-14.5); White Blood Count 16.8 K/mm3 (4.5-10.0)
[2021-10-09 12:18] LABS: Ammonia < 9 umol/L (9-30)
[2021-10-09 12:21] LABS: Lactic Acid Reflex 1.3 mmol/L (0.7-2.1)
[2021-10-09 12:26] LABS: Alanine Aminotransferase 10 U/L (4-50); Albumin Level 3.6 g/dL (3.5-5.1); Alkaline Phosphatase 113 U/L (38-126); Anion Gap 13 mmol/L (8-16); Aspartate Amino Transferase 19 U/L (17-59); Blood Urea Nitrogen 72 mg/dL (9-20); Calcium 8.1 mg/dL (8.4-10.2); Carbon Dioxide 25 mmol/L (22-30); Chloride 86 mmol/L (98-107); Estimated CRCL calculation 12 ml/min; Estimated Glomerular Filt Rate 7; Glucose 318 mg/dL (65-110); Magnesium 2.2 mg/dL (1.6-2.3); Phosphorus 8.1 mg/dL (2.5-4.5); Potassium 4.1 mmol/L (3.4-5.0); Sodium 124 mmol/L (137-145)
[2021-10-09 12:45] LABS: CRP 19.2 mg/dL (<1.0)
--- NOTE | 2021-10-09 14:10 | P.PNNP_ITS ---
Progress Note: A&P Assessment and Plan (1) End-stage renal disease (ESRD): Code(s): N18.6 - End stage renal disease Status: Acute Assessment and Plan: * continue CCPD treatment while hospitalized * He is still volume overloaded. he had 2 reds and 1 green last night. He made 2500cc of ultrafiltration. This is pretty good since this can happen every day. His blood pressure is still too low to switch to hemo. * His potassium is okay. His BUN has come down some. * He needs more fluid off. Continue the 2 reds +1 green regimen. * Overall condition is fairly poor. Prognosis is not good. Family conference occurred this morning and family wants to continue all measures. (2) Cardiac arrest: Code(s): I46.9 - Cardiac arrest, cause unspecified Status: Acute Assessment and Plan: * etiology not clear * Cardiology following with recommendations noted * continue supportive care (3) Acute respiratory failure with hypoxia: Code(s): J96.01 - Acute respiratory failure with hypoxia Status: Acute Assessment and Plan: * secondary to cardiac arrest and pneumonia * continue ventilator support * follow culture data * He is on Zosyn and vancomycin. (4) Hyponatremia: Code(s): E87.1 - Hypo-osmolality and hyponatremia Status: Acute Assessment and Plan: * Still low but stable. (5) Hypotension: Code(s): I95.9 - Hypotension, unspecified Status: Acute Assessment and Plan: * Blood pressure is low. He is on Levophed and Dopamine now. (6) Bradycardia: Code(s): R00.1 - Bradycardia, unspecified Status: Chronic Assessment and Plan: * apparently a chronic issue at baseline * Cardiology following * Heart rate is improved. (7) Community acquired pneumonia: Code(s): J18.9 - Pneumonia, unspecified organism Status: Acute Assessment and Plan: * as noted by admission and repeat imaging to date * follow culture data * on Zosyn and vancomycin (8) Anemia: Code(s): D64.9 - Anemia, unspecified Status: Chronic Assessment and Plan: * due to ESRD and possibly acute illness * Hold off on the Epogen because his hemoglobin is 11 Subjective Date/time seen: 10/09/21 14:10 Interval history: The patient is on the ventilator. He is sedated. He is on peritoneal dialysis. His fluid is clear. His treatment finished. He had 2500cc of net ultrafiltration. Blood pressure was Okay overnight. Dopamine weaning was attempted but his blood pressure dropped so now he is back on the Dopamine. His residuals are high Still. He is on enterotonic tube feeding rate now. Exam Narrative: WDWN Gentleman on the ventilator in the ICU sedated in NAD skin no rash or subcu nodules head ncat lungs Coarse bilaterally. cor reg no rub or gallop abd BS+ nontender and soft ext 2+ edema and no cyanosis. Objective Data Vital Signs Vital Signs: Vital Signs - 24 hr 10/08/21 14:20 10/08/21 15:12 10/08/21 16:00 Temperature 36.6 C Pulse Rate 64 67 64 Respiratory Rate 18 Blood Pressure 96/73 L 95/56 L Pulse Oximetry 95 95 10/08/21 17:26 10/08/21 18:00 10/08/21 20:00 Temperature 36.1 C L Pulse Rate 67 65 65 Respiratory Rate 18 18 Blood Pressure 96/58 L 88/53 L Pulse
--- NOTE | 2021-10-09 14:10 | PM.PNNEP ---
Progress Note: A&P Assessment and Plan (1) End-stage renal disease (ESRD): Code(s): N18.6 - End stage renal disease Status: Acute Assessment and Plan: continue CCPD treatment while hospitalized He is still volume overloaded. he had 2 reds and 1 green last night. He made 2500cc of ultrafiltration. This is pretty good since this can happen every day. His blood pressure is still too low to switch to hemo. His potassium is okay. His BUN has come down some. He needs more fluid off. Continue the 2 reds +1 green regimen. Overall condition is fairly poor. Prognosis is not good. Family conference occurred this morning and family wants to continue all measures. (2) Cardiac arrest: Code(s): I46.9 - Cardiac arrest, cause unspecified Status: Acute Assessment and Plan: etiology not clear Cardiology following with recommendations noted continue supportive care (3) Acute respiratory failure with hypoxia: Code(s): J96.01 - Acute respiratory failure with hypoxia Status: Acute Assessment and Plan: secondary to cardiac arrest and pneumonia continue ventilator support follow culture data He is on Zosyn and vancomycin. (4) Hyponatremia: Code(s): E87.1 - Hypo-osmolality and hyponatremia Status: Acute Assessment and Plan: Still low but stable. (5) Hypotension: Code(s): I95.9 - Hypotension, unspecified Status: Acute Assessment and Plan: Blood pressure is low. He is on Levophed and Dopamine now. (6) Bradycardia: Code(s): R00.1 - Bradycardia, unspecified Status: Chronic Assessment and Plan: apparently a chronic issue at baseline Cardiology following Heart rate is improved. (7) Community acquired pneumonia: Code(s): J18.9 - Pneumonia, unspecified organism Status: Acute Assessment and Plan: as noted by admission and repeat imaging to date follow culture data on Zosyn and vancomycin (8) Anemia: Code(s): D64.9 - Anemia, unspecified Status: Chronic Assessment and Plan: due to ESRD and possibly acute illness Hold off on the Epogen because his hemoglobin is 11 Subjective Date/time seen: 10/09/21 14:10 Interval history: The patient is on the ventilator. He is sedated. He is on peritoneal dialysis. His fluid is clear. His treatment finished. He had 2500cc of net ultrafiltration. Blood pressure was Okay overnight. Dopamine weaning was attempted but his blood pressure dropped so now he is back on the Dopamine. His residuals are high Still. He is on enterotonic tube feeding rate now. Exam Narrative: WDWN Gentleman on the ventilator in the ICU sedated in NAD skin no rash or subcu nodules head ncat lungs Coarse bilaterally. cor reg no rub or gallop abd BS+ nontender and soft ext 2+ edema and no cyanosis. Objective Data Vital Signs Vital Signs: Vital Signs - 24 hr 10/08/21 14:20 10/08/21 15:12 10/08/21 16:00 Temperature 36.6 C Pulse Rate 64 67 64 Respiratory Rate 18 Blood Pressure 96/73 L 95/56 L Pulse Oximetry 95 95 10/08/21 17:26 10/08/21 18:00 10/08/21 20:00 Temperature 36.1 C L Pulse Rate 67 65 65 Respiratory Rate 18 18 Blood Pressure 96/58 L 88/53 L Pulse Oximetry 96 91 94 10/08/21 20:03 10/08/21 22:00 10/08/21 23:21 Temperature Pulse Rate 64 64 62 Respiratory Rate 18 Blood Pressure 100/57 L Pulse Oximetry 94 96 97 10/08/21 23:50 10/09/21 00:00 10/09/21 00:55 Temperature 36.1 C L Pulse Rate 61 62 63 Respiratory Rate 18 Blood Pressure 95/57 L 122/65 Pulse Oximetry 96 97 10/09/21 01:46 10/09/21 02:00 10/09/21 02:19 Temperature Pulse Rate 60 61 63 Respiratory Rate 18 Blood Pressure 122/65 122/65 Pulse Oximetry 95 95 10/09/21 04:00 10/09/21 04:47 10/09/21 06:00 Temperature 36.0 C L Pulse Rate 63 62 63 Respiratory Rate 18 18 Bl
--- NOTE | 2021-10-09 14:49 | PM.PNCARD ---
Progress Note: A&P Assessment and Plan (1) Cardiac arrest: Code(s): I46.9 - Cardiac arrest, cause unspecified Status: Acute Assessment and Plan: There is no clear evidence for association with his bradycardia as a cause or contributor. Most likely secondary to hypoxia and or sepsis/septic shock with hypotension. The significance of the fact that he was on PD at the time also must be considered. At this time, most likely explanation respiratory decompensation, worsening pneumonia sepsis/septic shock. Unsuccessful attempt to wean dopamine. Apparently SBP dropped in the 70's, SpO2 decreased, but HR remained stable per RN. Back on 5mcg/min dopamine for now. Since he remains intubated and HR, BP stable on 5mch/min of dopamine now I would recommend keeping him on this dose with plan to wean dopamine as patient improves and becomes more stable. No plan or indication for transvenous or permanent pacer at this time. Patient is critically ill, prognosis guarded. (2) Acute respiratory failure with hypoxia: Code(s): J96.01 - Acute respiratory failure with hypoxia Status: Acute Assessment and Plan: Remains intubated on mechanical ventilatory support. Now with E.Coli in lungs. Per Critical Care. (3) Septic shock: Code(s): A41.9 - Sepsis, unspecified organism; R65.21 - Severe sepsis with septic shock Status: Acute Assessment and Plan: Remains on dopamine and norepinephrine. On broad-spectrum antibiotics. Recent sputum culture shows E. Coli in the lungs (4) Bradycardia: Code(s): R00.1 - Bradycardia, unspecified Status: Acute Assessment and Plan: Asymptomatic, chronic. This is indicative of underlying significant conduction system disease. (5) Persistent atrial fibrillation: Code(s): I48.19 - Other persistent atrial fibrillation Status: Acute Assessment and Plan: Atrial fibrillation is not new, chronic as well as his bradycardia. 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 -Continue to avoid AV miles blocking agents. -Remains on systemic anticoagulation with Eliquis. (6) Elevated troponin: Code(s): R77.8 - Other specified abnormalities of plasma proteins Status: Acute Assessment and Plan: Type 2 infarction minimal elevation given renal failure, history of CAD, hypertension, hypoxia not secondary to acute coronary syndrome and/or plaque rupture. (7) End-stage renal disease (ESRD): Code(s): N18.6 - End stage renal disease Status: Acute Assessment and Plan: Peritoneal dialysis per Nephrology. (8) Ischemic cardiomyopathy: Code(s): I25.5 - Ischemic cardiomyopathy Status: Acute Assessment and Plan: Stable, chronic heart failure with reduced ejection fraction reasonably compensated. Volume management with Nephrology and peritoneal dialysis. (9) Community acquired pneumonia: Code(s): J18.9 - Pneumonia, unspecified organism Status: Acute Assessment and Plan: Management per primary service with antibiotics as appropriate. Chest x-ray with worsening left-sided infiltrate. CT chest pending. 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 Monitor for bleeding. (11) Status post fall: Code(s): Z91.81 - History of falling Status: Acute Assessment and Plan: PT OT eval. Management per primary service. Subjective Date/time seen: 10/09/21 14:49 Cardiology follow up No acute events overnight. He remains intubated and unfortunately has stopped following commands despite sedation being lifted for 2 days now. This is a change from the last time I saw him. Family meeting earlier today with plans to continue current care. EEG to be performed.
[2021-10-09 16:19] LABS: Glucose Point of Care 258 mg/dl (65-105)
--- NOTE | 2021-10-09 16:54 | PM.IMPN ---
Progress Note: A&P Assessment and Plan (1) Acute respiratory failure with hypoxia: Code(s): J96.01 - Acute respiratory failure with hypoxia Status: Acute Assessment and Plan: Acute Respiratory failure secondary to cardiac arrest, pneumonia, pulmonary edema, left pleural effusion. Intubated on 10/04/2021 during code blue - Continue full mechanical ventilation support to prevent hypoxemia/hypercarbia and end organ damage. - ABG and PCXR reviewed, Currently on 40% FiO2 and peep of 8 - Low tidal volume ventilation strategy to prevent volutrauma - Patient is already on anticoagulation but PE is another unlikely possibility. Unfortunately he is allergic to iodine contrast and heparin. He has end-stage renal disease and on PD. - Lower extremity Dopplers were negative for DVT. Unable to do CTA due to allergy to contrast. - Regarding anticoagulation heparin infusion and Lovenox are not an option. His claims that patient is allergic to heparin and I suspect patient may have a history of HIT although I do not see any documentation. For now, I will continue Eliquis but in case we need to switch to IV, I will switch him to argatroban. - on Fentanyl and versed for sedation, will continue daily sedation holiday 10/07/2021: Chest CT IMPRESSION: 1. Small right and large left pleural effusions. 2. Acute fractures of left second-sixth ribs. 3. 3.8 x 1.7 cm anterior mediastinal mass, increased from 1.9 x 1.6 cm on 10/03/21. This finding may be a combination of hematoma and a pre-existing mass such as thymoma or lymphoma. 5. Small volume of ascites with peritoneal dialysis catheter. 6. Mild bilateral external iliac lymphadenopathy, likely reactive. (2) End-stage renal disease on peritoneal dialysis: Code(s): N18.6 - End stage renal disease; Z99.2 - Dependence on renal dialysis Status: Acute Assessment and Plan: patient is being followed by Nephrology and is currently peritoneal dialysis. (3) Cardiac arrest: Code(s): I46.9 - Cardiac arrest, cause unspecified Status: Acute Assessment and Plan: Its possible patient's cardiac arrest secondary to junctional bradycardia or slow AFib Troponins, although mildly elevated in presence of end-stage renal disease, remained flat EKG showed AFib/ junctional bradycardia with heart rate in 40s - wean Dopamine to maintain HR 50-60s - he may need transvenous pacemaker - cardiology is following - continue Eliquis - head CT was negative for any hemorrhage 10/06/2021 Echo: - mild LVH; moderate-severe LV systolic dysfunction, ejection fraction about 30-35% - Moderate-severe aortic stenosis - Moderate pulmonary hypertension, RVSP 54 mmHg (4) Persistent atrial fibrillation: Code(s): I48.19 - Other persistent atrial fibrillation Status: Acute Assessment and Plan: currently in junctional bradycardia - see above - continue Eliquis (5) Bradycardia: Code(s): R00.1 - Bradycardia, unspecified Status: Chronic Assessment and Plan: see above (6) Pneumonia: Code(s): J18.9 - Pneumonia, unspecified organism Status: Acute Assessment and Plan: patient on the floor was being treated for community-acquired pneumonia antibiotics were broadenedafter intubation as possible patient may have aspirated continue vancomycin and Zosyn Cultures have been sent and are negative till now Procalcitonin level 6.4 10/08: leukocystosis persists (7) Insulin dependent diabetes mellitus: Status: Acute Assessment and Plan: Continue sliding scale insulin -Increase dose of Lantus (8) Mediastinal mass: Code(s): J98.59 - Other diseases of mediastinum, not elsewhere classified Status: Acute Assessment and Plan: CT chest showed 3.8 x 1.7 cm anterior mediastinal mass, increased from 1.9 x 1.6 cm on 10/03/21. This finding may be a combination of hematoma and a pre-existing mass such as thymo
[2021-10-09] MEDS: ROSUVASTATIN 10 MG TABLET PO (20:42)
[2021-10-09] MEDS: INSULIN GLARGINE (*BKC) 100 UNITS/ML 20 UNITS SUB-Q (20:43)
[2021-10-09 20:50] LABS: Glucose Point of Care 310 mg/dl (65-105)
[2021-10-09 23:53] LABS: Glucose Point of Care 366 mg/dl (65-105)
[2021-10-10] VITALS (31 sets, daily range): BP systolic 68–127; BP diastolic 49–72; PULSE 62–93; RESP 16–21; TEMP 36–36.7; O2SAT 93–99
[2021-10-10] MEDS: NOREPINEPHRINE 8 MG/D5W 250 ML 8 MG/250 ML BAG 7.5 MG IV CONT (02:49)
[2021-10-10] MEDS: INSULIN ASPART (*BKC) 100 UNITS/ML SUB-Q ×3 (04:00→12:40)
[2021-10-10 04:10] LABS: Glucose Point of Care 359 mg/dl (65-105)
[2021-10-10] MEDS: CENTRAL LINE FLUSH 10 ML IV PUSH ×3 (05:10→20:21)
[2021-10-10] MEDS: METOCLOPRAMIDE HCL INJ 10 MG/2 ML VIAL IV PUSH ×3 (05:10→17:07)
[2021-10-10 05:33] LABS: Alveolar/Arterial O2 Gradient 158.3 mmHg; Base Excess ABG 0.6 mEq/l (+/-2.0); Carboxyhemoglobin 0.7 % THb (0-2.0); Fractional Inspired Oxygen 40 %; HCO3 ABG 25.1 mEq/l (22.0-26.0); Methemoglobin ABG 0.4 %THb (0-1.5); Oxygen Content ABG 22.2 %vol (16.0-22.0); Oxygen Saturation ABG 96.2 % (95.0-100.0); Oxyhemoglobin 94.5 % THb (90.0-100.0); PCO2 ABG 39.7 mmHg (35.0-45.0); PO2 ABG 81.2 mmHg (80.0-100.0); PO2 FiO2 Ratio Arterial Blood 2.03 %; Reduced Hemoglobin 4.4 %THb (0-5.0); Total Hemoglobin 16.7 g/dL (12.0-18.0); pH ABG 7.418 (7.350-7.450)
[2021-10-10 05:34] LABS: Device VENTILATOR; Modified Allen's Test Pass; Site Drawn LEFT RADIAL
[2021-10-10 05:35] LABS: Arterial Blood Gas PEEP 8 cmH2O; Arterial Blood Gas Tidal Volume 450 ml; Arterial Blood Gas Vent Mode CMV; Arterial Blood Gas Ventilator rate 18 /MIN
--- NOTE | 2021-10-10 07:43 | WPDINTPN ---
Progress Note: A&P Assessment and Plan (1) Acute respiratory failure with hypoxia: Code(s): J96.01 - Acute respiratory failure with hypoxia Status: Acute Assessment and Plan: Acute Respiratory failure secondary to cardiac arrest, pneumonia, pulmonary edema, left pleural effusion. Intubated on 10/04/2021 during code blue - Continue full mechanical ventilation support to prevent hypoxemia/hypercarbia and end organ damage. - ABG and PCXR reviewed, Currently on 40% FiO2 and peep of 8 - Low tidal volume ventilation strategy to prevent volutrauma - Patient is already on anticoagulation but PE is another unlikely possibility. Unfortunately he is allergic to iodine contrast and heparin. He has end-stage renal disease and on PD. - Lower extremity Dopplers were negative for DVT. Unable to do CTA due to allergy to contrast. - Regarding anticoagulation heparin infusion and Lovenox are not an option. His claims that patient is allergic to heparin and I suspect patient may have a history of HIT although I do not see any documentation. For now, I will continue Eliquis but in case we need to switch who IV, I will switch him to argatroban. - on Fentanyl and versed for sedation, following commands in all extremities 10/09/2021: CT chest, abdomen, pelvis without contrast 1. Small right and moderate left pleural effusions with collapse of the bilateral lower lobes with additional dependent compressive atelectasis. 2. Cardiomegaly. 3. Nonspecific 2.2 x 1.4 cm anterior mediastinal mass with differential including enlarged lymph node or thymoma. 4. Small volume of ascites with peritoneal dialysis catheter. (2) End-stage renal disease on peritoneal dialysis: Code(s): N18.6 - End stage renal disease; Z99.2 - Dependence on renal dialysis Status: Acute Assessment and Plan: patient is being followed by Nephrology and is currently peritoneal dialysis. -will d/w Dr. Combs and he will adjust dialysis to try to remove additional fluid -negative fluid balance in the last 24 hours (3) Cardiac arrest: Code(s): I46.9 - Cardiac arrest, cause unspecified Status: Acute Assessment and Plan: Its possible patient's cardiac arrest secondary to junctional bradycardia or slow AFib Troponins, although mildly elevated in presence of end-stage renal disease, remained flat EKG showed AFib/ junctional bradycardia with heart rate in 40s - wean Dopamine to maintain HR 50-60s - he may need transvenous pacemaker and I have discussed with Cardiology - cardiology is following - continue Eliquis - 10/09: Discussed with Cardiology, maintain dopamine, once he is more stable will wean dopamine and evaluate -repeat head CT on 10/09: No acute intracranial findings or interval change, mild atrophy and microangiopathy. 10/06/2021 Echo: - mild LVH; moderate-severe LV systolic dysfunction, ejection fraction about 30-35% - Moderate-severe aortic stenosis - Moderate pulmonary hypertension, RVSP 54 mmHg (4) Persistent atrial fibrillation: Code(s): I48.19 - Other persistent atrial fibrillation Status: Acute Assessment and Plan: currently in junctional bradycardia - see above - continue Eliquis (5) Bradycardia: Code(s): R00.1 - Bradycardia, unspecified Status: Chronic Assessment and Plan: see above (6) Pneumonia: Code(s): J18.9 - Pneumonia, unspecified organism Status: Acute Assessment and Plan: patient on the floor was being treated for community-acquired pneumonia antibiotics were broadened yesterday after intubation as possible patient may have aspirated continue vancomycin and Zosyn (started on 10/05/2021) 10/03/2021 Blood cultures: Negative Procalcitonin level 6.4 10/08: leukocystosis persists -10/07/2021: Sputum culture -growing E coli, sensitive to cefepime, Zosyn, imipenem and gentamicin (7) Insulin dependent diabetes mellitus: Status: Acut
[2021-10-10] MEDS: PANTOPRAZOLE SODIUM IV 40 MG VIAL IV PUSH (08:09)
[2021-10-10] MEDS: APIXABAN 5 MG TABLET PO ×2 (08:09→20:22)
[2021-10-10] MEDS: BRIMONIDINE TARTRATE 0.2% OP SOLN 5 ML BTL 1 DROP EACH EYE ×2 (08:09→20:22)
[2021-10-10] MEDS: MINERAL OIL/WHITE PETROLATUM OINTMENT 1 APPLIC EACH EYE ×2 (08:09→20:22)
[2021-10-10] MEDS: allopurinoL 100 MG TABLET PO (08:10)
[2021-10-10] MEDS: DORZOLAMIDE/TIMOLOL OPHTH SOL 10 ML BOTTLE 1 DROP EACH EYE ×2 (08:11→20:22)
[2021-10-10] MEDS: polyethylene glycoL 3350 17 GM POWD.PACK PO (08:12)
[2021-10-10 08:14] LABS: Glucose Point of Care 315 mg/dl (65-105)
[2021-10-10] MEDS: INSULIN GLARGINE (*BKC) 100 UNITS/ML 50 UNITS SUB-Q ×2 (08:14→20:46)
[2021-10-10] MEDS: MUPIROCIN 2% OINT 22 GM TUBE 1 APPLIC TOPICAL (08:26)
[2021-10-10] MEDS: SOD HYPOCHLORITE 1/4 STRENGTH 473 ML 1 APPLIC TOPICAL (08:26)
[2021-10-10] MEDS: SILVER SULFADIAZINE 1% CR 50 GM JAR (*BKC) 1 APPLIC TOPICAL (08:26)
[2021-10-10 08:56] LABS: Basophils Absolute Auto 0.1 K/mm3 (0.0-0.1); Basophils Percent Auto 0.5 % (0.2-1.2); Eosinophils Absolute Auto 0.9 K/mm3 (0-0.3); Eosinophils Percent Auto 5.3 % (0-4.4); Hematocrit 33.8 % (42.0-52.0); Hemoglobin 11.5 g/dL (14.0-18.0); Immature Granulocyte Absolute 0.15 K/mm3 (0.00-0.031); Immature Granulocyte Percent A 0.9 % (0-0.5); Lymphocytes Absolute Auto 0.65 K/mm3 (0.9-3.2); Mean Corpuscular Hemoglobin 31.4 pg (26-34); Mean Corpuscular Volume 92.3 fl (80-100); Mean Platelet Volume 10.8 fl (7.4-10.4); Monocytes Absolute Auto 1.3 K/mm3 (0.1-0.6); Monocytes Percent Auto 8.3 % (2.6-8.5); Platelet Count Result 347 k/mm3 (150-375); Red Blood Count 3.66 M/mm3 (4.6-6.20); Red Cell Distribution Width 15.6 % (11.5-14.5); White Blood Count 16.1 K/mm3 (4.5-10.0)
--- NOTE | 2021-10-10 09:01 | PM.PNCARD ---
Progress Note: A&P Additional Plan Continue aggressive supportive care. Records indicate patient previously had a ICD which was removed because of infection. Rhythm is acceptable>> do not plan to implant a pacemaker device here Neurological outcome still to be determined Barrington Lock MD [facility] Subjective Date/time seen: Date of service: 10/10/21 09:01 Interval history: 65-year-old man with: History of ischemic cardiomyopathy, chronic atrial fibrillation LV systolic dysfunction and [id number] aortic valve stenosis. Patient admitted here with sepsis had a PEA arrest after which she has been placed in the ICU. Patient is still on ventilator support. No longer sedated. Exam Narrative: Intubated, Const: General: comfortable and no acute distress Nutritional Appearance: obese Orientation/consciousness: No patient oriented x3 HENMT: Head: normal to inspection Eyes: General: appearance normal, both eyes and all related structures Pupils: Equal, round and reactive pupils present Neck: Neck: normal visual inspection Resp: Effort & Inspection: other (mehanically ventilated ) Auscultation: not clear to auscultation bilaterally and rhonchi Cardio: Rate: regular rate Rhythm: abnormal rhythm Heart sounds: S1 normal heart sound present, S2 normal heart sound present and Murmur heart sound present systolic GI: Auscultation: normal bowel sounds Skin: General skin exam: normal color and rashes and/or lesions noted Wounds: wounds noted (bilateral feet ) Neuro: General: No patient oriented x3 Cranial nerves: Yes Equal, round and reactive pupils present Psych: Appearance: grossly abnormal Objective Data Vital Signs Vital Signs: Vital Signs - 24 hr 10/09/21 10:00 10/09/21 10:25 10/09/21 10:43 Temperature Pulse Rate 60 66 64 Respiratory Rate 18 18 Blood Pressure 106/63 98/56 L Pulse Oximetry 96 98 10/09/21 10:44 10/09/21 11:04 10/09/21 11:11 Temperature Pulse Rate 64 60 60 Respiratory Rate 18 Blood Pressure 51/33 L 63/50 L Pulse Oximetry 10/09/21 11:12 10/09/21 11:46 10/09/21 12:00 Temperature 36.6 C Pulse Rate 60 66 65 Respiratory Rate 18 Blood Pressure 63/50 L 155/77 H 149/71 H Pulse Oximetry 94 10/09/21 12:16 10/09/21 12:42 10/09/21 12:43 Temperature Pulse Rate 67 69 67 Respiratory Rate 18 18 Blood Pressure 124/56 L 149/71 H Pulse Oximetry 10/09/21 13:00 10/09/21 13:01 10/09/21 14:00 Temperature Pulse Rate 67 67 66 Respiratory Rate 18 Blood Pressure 124/56 L 124/56 L 124/66 Pulse Oximetry 96 10/09/21 14:29 10/09/21 15:12 10/09/21 16:00 Temperature 36.6 C Pulse Rate 66 69 67 Respiratory Rate 18 Blood Pressure 128/71 113/63 Pulse Oximetry 98 96 10/09/21 16:37 10/09/21 17:05 10/09/21 17:15 Temperature Pulse Rate 65 67 66 Respiratory Rate 18 Blood Pressure 85/50 L 77/44 L Pulse Oximetry 98 10/09/21 17:26 10/09/21 18:00 10/09/21 18:02 Temperature Pulse Rate 66 74 74 Respiratory Rate 18 18 Blood Pressure 139/75 139/75 Pulse Oximetry 97 10/09/21 18:33 10/09/21 20:00 10/09/21 20:45 Temperature 36.6 C Pulse Rate 74 72 72 Respiratory Rate 20 Blood Pressure 142/73 H 119/72 Pulse Oximetry 93 93 10/09/21 22:00 10/09/21 22:48 10/09/21 23:40 Temperature Pulse Rate 75 65 66 Respiratory Rate 18 Blood Pressure 119/70 110/64 Pulse Oximetry 95 96 10/10/21 00:00 10/10/21 01:57 10/10/21 02:00 Temperature 36.1 C L Pulse Rate 73 71 70 Respiratory Rate 18 18 Blood Pressure 127/72 123/67 114/62 Pulse Oximetry 95 95 10/10/21 02:48 10/10/21 02:49 10/10/21 04:00 Temperature 36.0 C L Pulse Rate 62 71 75 Respiratory Rate 19 Blood Pressure 123/67 123/68 Pulse Oximetry 96 95 10/10/21 05:20 10/10/21 06:00 10/10/21 07:41 Temperature Pulse Rate 73 66 81 Respiratory Rate 18 Blood Pressure 118/64 126/66 Pulse Oximetry 94 95 10/10/21 07:42 10/10/21 08:
[2021-10-10 09:09] LABS: Alanine Aminotransferase 14 U/L (4-50); Albumin Level 3.2 g/dL (3.5-5.1); Alkaline Phosphatase 141 U/L (38-126); Anion Gap 12 mmol/L (8-16); Aspartate Amino Transferase 22 U/L (17-59); Bilirubin,Total 1.1 mg/dL (0.2-1.3); Blood Urea Nitrogen 71 mg/dL (9-20); Calcium 7.9 mg/dL (8.4-10.2); Carbon Dioxide 28 mmol/L (22-30); Chloride 88 mmol/L (98-107); Estimated CRCL calculation 12 ml/min; Estimated Glomerular Filt Rate 7; Glucose 282 mg/dL (65-110); Magnesium 2.1 mg/dL (1.6-2.3); Phosphorus 7.8 mg/dL (2.5-4.5); Potassium 3.8 mmol/L (3.4-5.0); Sodium 128 mmol/L (137-145)
[2021-10-10 09:42] LABS: Vancomycin Random 23.6 ug/mL (10-20)
[2021-10-10] MEDS: DOPamine 400 MG/D5W 250 ML 400 MG/250 ML BAG 20.58 MG IV CONT (09:53)
--- NOTE | 2021-10-10 10:36 | PCNFU ---
Addendum entered by Dionne Zeng RD, LDN 10/10/21 10:48: skin: venous status ulcer: Left lower left and right foot Original Note: Nutrition Follow-Up Complete: Inadequate Oral Intake as related to mechanical ventilation as evidenced by NPO. goal: Meet estimated nutritional needs Patient is progressing towards goal. We will continue current goal. Pt current nutrition is Vital AF 1.2 at 10 ml/hr over 22 hours. Last recorded weight is 136.6 kg, up from 122.5 kg on admit. Bowel Motility:No BM reported. Labs Reviewed: Glu 282,BUN 71, GFR 7, Cr 7.9,Na 128, Hct 33.8, Hgb 11.5 Meds Noted:Miralax, Protonix, Bumex, Dopamine, Crestor, Zosyn, Cymbalta, Renvela, Dulcolax Suppository. Skin: WNL Additional Notes: Patient remains on mechanical vent, CMV mode. Patient current with tube feedings of Vital AF 1.2 at 10 ml/hr. Residual of 200 ml. Orders to increase tube feeding rate to 20 ml/hr over 22 hours. Goal rate of tube feeding recommend at 70 ml/hr over 22 hours which will provide 1848 kcals/116 gms protein/1249 ml water. Free water flush 30 ml q 4 hours. Patient receiving Peritoneal dialysis. Agree with current diet orders. Will monitor in ICU rounds and reassessing every Wednesday and Wednesday.
--- NOTE | 2021-10-10 10:36 | P.PNNP_ITS ---
Progress Note: A&P Assessment and Plan (1) End-stage renal disease (ESRD): Code(s): N18.6 - End stage renal disease Status: Acute Assessment and Plan: * continue CCPD treatment while hospitalized * He is still volume overloaded. he had 2 reds and 1 green last night. He made 2100cc of ultrafiltration. * This is still more than he would get off with hemodialysis. Will continue this. * His potassium is okay. His BUN has come down some. * He needs more fluid off. Continue the 2 reds +1 green regimen. * Overall condition is fairly poor. Prognosis is not good. Family conference occurred this morning and family wants to continue all measures. (2) Cardiac arrest: Code(s): I46.9 - Cardiac arrest, cause unspecified Status: Acute Assessment and Plan: * etiology not clear * Cardiology following with recommendations noted * * continue supportive care (3) Acute respiratory failure with hypoxia: Code(s): J96.01 - Acute respiratory failure with hypoxia Status: Acute Assessment and Plan: * secondary to cardiac arrest and pneumonia * continue ventilator support * follow culture data * He is on Zosyn and vancomycin. (4) Hyponatremia: Code(s): E87.1 - Hypo-osmolality and hyponatremia Status: Acute Assessment and Plan: * Still low but stable. (5) Hypotension: Code(s): I95.9 - Hypotension, unspecified Status: Acute Assessment and Plan: * Blood pressure is low. He is on Levophed 4 and Dopamine 4 now. (6) Bradycardia: Code(s): R00.1 - Bradycardia, unspecified Status: Chronic Assessment and Plan: * apparently a chronic issue at baseline * Cardiology following * Heart rate is in the 60s (7) Community acquired pneumonia: Code(s): J18.9 - Pneumonia, unspecified organism Status: Acute Assessment and Plan: * as noted by admission and repeat imaging to date * follow culture data * on Zosyn and vancomycin (8) Anemia: Code(s): D64.9 - Anemia, unspecified Status: Chronic Assessment and Plan: * due to ESRD and possibly acute illness * Hold off on the Epogen because his hemoglobin is 11 Subjective Date/time seen: 10/10/21 10:36 Interval history: The patient is on the ventilator. He is sedated. He is on peritoneal dialysis. His fluid is clear. His treatment finished. He had 2100cc off. He was seen at 930 a.m. Blood pressure was a bit low overnight. he is on dopamine for and norepinephrine for and currently his blood pressure is 117. Getting slow tube feedings with Vital. Exam Narrative: WDWN Gentleman on the ventilator in the ICU sedated in NAD skin no rash or subcu nodules head ncat lungs Coarse bilaterally. cor reg no rub or gallop abd BS+ nontender and soft ext 2+ edema and no cyanosis. Objective Data Vital Signs Vital Signs: Vital Signs - 24 hr 10/09/21 10:43 10/09/21 10:44 10/09/21 11:04 Temperature Pulse Rate 64 64 60 Respiratory Rate 18 18 Blood Pressure 98/56 L 51/33 L Pulse Oximetry 10/09/21 11:11 10/09/21 11:12 10/09/21 11:46 Temperature Pulse Rate 60 60 66 Respiratory Rate Blood Pressure 63/50 L 63/50 L 155/77 H Pulse Oximetry 10/09/21
--- NOTE | 2021-10-10 10:36 | PM.PNNEP ---
Progress Note: A&P Assessment and Plan (1) End-stage renal disease (ESRD): Code(s): N18.6 - End stage renal disease Status: Acute Assessment and Plan: continue CCPD treatment while hospitalized He is still volume overloaded. he had 2 reds and 1 green last night. He made 2100cc of ultrafiltration. This is still more than he would get off with hemodialysis. Will continue this. His potassium is okay. His BUN has come down some. He needs more fluid off. Continue the 2 reds +1 green regimen. Overall condition is fairly poor. Prognosis is not good. Family conference occurred this morning and family wants to continue all measures. (2) Cardiac arrest: Code(s): I46.9 - Cardiac arrest, cause unspecified Status: Acute Assessment and Plan: etiology not clear Cardiology following with recommendations noted continue supportive care (3) Acute respiratory failure with hypoxia: Code(s): J96.01 - Acute respiratory failure with hypoxia Status: Acute Assessment and Plan: secondary to cardiac arrest and pneumonia continue ventilator support follow culture data He is on Zosyn and vancomycin. (4) Hyponatremia: Code(s): E87.1 - Hypo-osmolality and hyponatremia Status: Acute Assessment and Plan: Still low but stable. (5) Hypotension: Code(s): I95.9 - Hypotension, unspecified Status: Acute Assessment and Plan: Blood pressure is low. He is on Levophed 4 and Dopamine 4 now. (6) Bradycardia: Code(s): R00.1 - Bradycardia, unspecified Status: Chronic Assessment and Plan: apparently a chronic issue at baseline Cardiology following Heart rate is in the 60s (7) Community acquired pneumonia: Code(s): J18.9 - Pneumonia, unspecified organism Status: Acute Assessment and Plan: as noted by admission and repeat imaging to date follow culture data on Zosyn and vancomycin (8) Anemia: Code(s): D64.9 - Anemia, unspecified Status: Chronic Assessment and Plan: due to ESRD and possibly acute illness Hold off on the Epogen because his hemoglobin is 11 Subjective Date/time seen: 10/10/21 10:36 Interval history: The patient is on the ventilator. He is sedated. He is on peritoneal dialysis. His fluid is clear. His treatment finished. He had 2100cc off. He was seen at 930 a.m. Blood pressure was a bit low overnight. he is on dopamine for and norepinephrine for and currently his blood pressure is 117. Getting slow tube feedings with Vital. Exam Narrative: WDWN Gentleman on the ventilator in the ICU sedated in NAD skin no rash or subcu nodules head ncat lungs Coarse bilaterally. cor reg no rub or gallop abd BS+ nontender and soft ext 2+ edema and no cyanosis. Objective Data Vital Signs Vital Signs: Vital Signs - 24 hr 10/09/21 10:43 10/09/21 10:44 10/09/21 11:04 Temperature Pulse Rate 64 64 60 Respiratory Rate 18 18 Blood Pressure 98/56 L 51/33 L Pulse Oximetry 10/09/21 11:11 10/09/21 11:12 10/09/21 11:46 Temperature Pulse Rate 60 60 66 Respiratory Rate Blood Pressure 63/50 L 63/50 L 155/77 H Pulse Oximetry 10/09/21 12:00 10/09/21 12:16 10/09/21 12:42 Temperature 36.6 C Pulse Rate 65 67 69 Respiratory Rate 18 18 Blood Pressure 149/71 H 124/56 L Pulse Oximetry 94 10/09/21 12:43 10/09/21 13:00 10/09/21 13:01 Temperature Pulse Rate 67 67 67 Respiratory Rate 18 Blood Pressure 149/71 H 124/56 L 124/56 L Pulse Oximetry 10/09/21 14:00 10/09/21 14:29 10/09/21 15:12 Temperature Pulse Rate 66 66 69 Respiratory Rate 18 Blood Pressure 124/66 128/71 Pulse Oximetry 96 98 10/09/21 16:00 10/09/21 16:37 10/09/21 17:05 Temperature 36.6 C Pulse Rate 67 65 67 Respiratory Rate 18 Blood Pressure 113/63 85/50 L Pulse Oximetry 96 98 10/09/21
[2021-10-10] MEDS: CALCIUM ACETATE 667 MG TABLET 1334 MG FEED TUBE ×2 (12:40→16:55)
[2021-10-10] MEDS: BISACODYL 10 MG SUPPOSITORY RECTAL (12:42)
[2021-10-10 12:48] LABS: Glucose Point of Care 203 mg/dl (65-105)
--- NOTE | 2021-10-10 16:48 | P.PNIM_ITS ---
Progress Note: A&P Assessment and Plan (1) Acute respiratory failure with hypoxia: Code(s): J96.01 - Acute respiratory failure with hypoxia Status: Acute Assessment and Plan: Acute Respiratory failure secondary to cardiac arrest, pneumonia, pulmonary edema, left pleural effusion. Intubated on 10/04/2021 during code blue - Continue full mechanical ventilation support to prevent hypoxemia/hypercarbia and end organ damage. - ABG and PCXR reviewed, Currently on 40% FiO2 and peep of 8 - Low tidal volume ventilation strategy to prevent volutrauma - Patient is already on anticoagulation but PE is another unlikely possibility. Unfortunately he is allergic to iodine contrast and heparin. He has end-stage renal disease and on PD. - Lower extremity Dopplers were negative for DVT. Unable to do CTA due to allergy to contrast. - Regarding anticoagulation heparin infusion and Lovenox are not an option. His claims that patient is allergic to heparin and I suspect patient may have a history of HIT although I do not see any documentation. For now, I will continue Eliquis but in case we need to switch to IV, I will switch him to argatroban. - on Fentanyl and versed for sedation, which has been turned off today 10/07/2021: Chest CT IMPRESSION: 1. Small right and large left pleural effusions. 2. Acute fractures of left second-sixth ribs. 3. 3.8 x 1.7 cm anterior mediastinal mass, increased from 1.9 x 1.6 cm on 10/03/21. This finding may be a combination of hematoma and a pre-existing mass such as thymoma or lymphoma. 5. Small volume of ascites with peritoneal dialysis catheter. 6. Mild bilateral external iliac lymphadenopathy, likely reactive. (2) End-stage renal disease on peritoneal dialysis: Code(s): N18.6 - End stage renal disease; Z99.2 - Dependence on renal dialysis Status: Acute Assessment and Plan: patient is being followed by Nephrology and is currently peritoneal dialysis. (3) Cardiac arrest: Code(s): I46.9 - Cardiac arrest, cause unspecified Status: Acute Assessment and Plan: Its possible patient's cardiac arrest secondary to junctional bradycardia or slow AFib Troponins, although mildly elevated in presence of end-stage renal disease, remained flat EKG showed AFib/ junctional bradycardia with heart rate in 40s - wean Dopamine to maintain HR 50-60s - he may need transvenous pacemaker - cardiology is following - continue Eliquis - head CT was negative for any hemorrhage 10/06/2021 Echo: - mild LVH; moderate-severe LV systolic dysfunction, ejection fraction about 30- 35% - Moderate-severe aortic stenosis - Moderate pulmonary hypertension, RVSP 54 mmHg (4) Persistent atrial fibrillation: Code(s): I48.19 - Other persistent atrial fibrillation Status: Acute Assessment and Plan: currently in junctional bradycardia - see above - continue Eliquis (5) Bradycardia: Code(s): R00.1 - Bradycardia, unspecified Status: Chronic Assessment and Plan: see above (6) Pneumonia: Code(s): J18.9 - Pneumonia, unspecified organism Status: Acute Assessment and Plan: patient on the floor was being treated for community-acquired pneumonia antibiotics were broadenedafter intubation as possible patient may have aspirated continue vancomycin and Zosyn Cultures have been sent and are negative till now Procalcitonin level 6.4 10/08: leukocystosis persists (7) Insulin dependent diabetes mellitus: Status: Acute Assessment and Plan: Continue sliding scale insulin con
[2021-10-10 17:03] LABS: Glucose Point of Care 128 mg/dl (65-105)
[2021-10-10] MEDS: ROSUVASTATIN 10 MG TABLET PO (20:22)
[2021-10-10 21:02] LABS: Glucose Point of Care 169 mg/dl (65-105)
[2021-10-10] MEDS: DOPamine 400 MG/D5W 250 ML 400 MG/250 ML BAG 20.79 MG IV CONT (21:53)
[2021-10-11] VITALS (32 sets, daily range): BP systolic 79–114; BP diastolic 45–71; PULSE 65–94; RESP 11–20; TEMP 36–36.9; O2SAT 94–98
[2021-10-11] MEDS: METOCLOPRAMIDE HCL INJ 10 MG/2 ML VIAL IV PUSH ×5 (00:09→23:50)
[2021-10-11 00:39] LABS: Glucose Point of Care 192 mg/dl (65-105)
[2021-10-11] MEDS: INSULIN ASPART (*BKC) 100 UNITS/ML SUB-Q ×4 (04:18→23:47)
[2021-10-11 05:10] LABS: Alveolar/Arterial O2 Gradient 117.8 mmHg; Base Excess ABG 1.4 mEq/l (+/-2.0); Carboxyhemoglobin 0.2 % THb (0-2.0); Fractional Inspired Oxygen 35 %; HCO3 ABG 26.2 mEq/l (22.0-26.0); Methemoglobin ABG 0.3 %THb (0-1.5); Oxygen Content ABG 18.3 %vol (16.0-22.0); Oxygen Saturation ABG 96.3 % (95.0-100.0); Oxyhemoglobin 95.3 % THb (90.0-100.0); PO2 ABG 82.9 mmHg (80.0-100.0); PO2 FiO2 Ratio Arterial Blood 2.37 %; Reduced Hemoglobin 4.2 %THb (0-5.0); Total Hemoglobin 13.6 g/dL (12.0-18.0); pH ABG 7.413 (7.350-7.450)
[2021-10-11 05:14] LABS: Modified Allen's Test Unable to perform; Site Drawn LEFT RADIAL
[2021-10-11 05:15] LABS: Arterial Blood Gas PEEP 8 cmH2O; Arterial Blood Gas Tidal Volume 450 ml; Arterial Blood Gas Vent Mode CMV; Arterial Blood Gas Ventilator rate 18 /MIN; Device VENTILATOR
[2021-10-11] MEDS: CENTRAL LINE FLUSH 10 ML IV PUSH ×3 (05:46→20:26)
[2021-10-11 05:56] LABS: Glucose Point of Care 314 mg/dl (65-105)
--- NOTE | 2021-10-11 07:49 | WPDINTPN ---
Progress Note: A&P Assessment and Plan (1) Acute respiratory failure with hypoxia: Code(s): J96.01 - Acute respiratory failure with hypoxia Status: Acute Assessment and Plan: Acute Respiratory failure secondary to cardiac arrest, pneumonia, pulmonary edema, left pleural effusion. Intubated on 10/04/2021 during code blue - Continue full mechanical ventilation support to prevent hypoxemia/hypercarbia and end organ damage. - ABG and PCXR reviewed, Currently on 35% FiO2 and peep of 8, will switch to ASV mode -off all sedation since 10/09 -10/07/2021: Sputum culture growing E coli, sensitive to cefepime, Zosyn, imipenem and gentamicin. Will repeat sputum cultures -continue Zosyn -patient also has been in negative fluid balance in the last 24 hours 10/09/2021: CT chest, abdomen, pelvis without contrast 1. Small right and moderate left pleural effusions with collapse of the bilateral lower lobes with additional dependent compressive atelectasis. 2. Cardiomegaly. 3. Nonspecific 2.2 x 1.4 cm anterior mediastinal mass with differential including enlarged lymph node or thymoma. 4. Small volume of ascites with peritoneal dialysis catheter. (2) End-stage renal disease on peritoneal dialysis: Code(s): N18.6 - End stage renal disease; Z99.2 - Dependence on renal dialysis Status: Acute Assessment and Plan: patient is being followed by Nephrology and is currently peritoneal dialysis. -will d/w Dr. Combs and he will adjust dialysis to try to remove additional fluid -negative fluid balance in the last 24 hours (3) Cardiac arrest: Code(s): I46.9 - Cardiac arrest, cause unspecified Status: Acute Assessment and Plan: Its possible patient's cardiac arrest secondary to junctional bradycardia or slow AFib Troponins, although mildly elevated in presence of end-stage renal disease, remained flat EKG showed AFib/ junctional bradycardia with heart rate in 40s - wean Dopamine to maintain HR 50-60s - he may need transvenous pacemaker and I have discussed with Cardiology - cardiology is following - continue Eliquis - 10/09: Discussed with Cardiology, maintain dopamine, once he is more stable will wean dopamine and evaluate -repeat head CT on 10/09: No acute intracranial findings or interval change, mild atrophy and microangiopathy. -patient opens his eyes to name and follows simple commands in all extremities 10/06/2021 Echo: - mild LVH; moderate-severe LV systolic dysfunction, ejection fraction about 30-35% - Moderate-severe aortic stenosis - Moderate pulmonary hypertension, RVSP 54 mmHg (4) Persistent atrial fibrillation: Code(s): I48.19 - Other persistent atrial fibrillation Status: Acute Assessment and Plan: currently in junctional bradycardia - see above - continue Eliquis (5) Bradycardia: Code(s): R00.1 - Bradycardia, unspecified Status: Chronic Assessment and Plan: see above (6) Pneumonia: Code(s): J18.9 - Pneumonia, unspecified organism Status: Acute Assessment and Plan: patient on the floor was being treated for community-acquired pneumonia antibiotics were broadened yesterday after intubation as possible patient may have aspirated 10/03/2021 Blood cultures: Negative Procalcitonin level 6.4 10/08: leukocystosis persists -10/07/2021: Sputum culture -growing E coli, sensitive to cefepime, Zosyn, imipenem and gentamicin continue vancomycin and Zosyn (started on 10/05/2021) (7) Insulin dependent diabetes mellitus: Status: Acute Assessment and Plan: Continue sliding scale insulin -Increase dose of Lantus (8) Mediastinal mass: Code(s): J98.59 - Other diseases of mediastinum, not elsewhere classified Status: Acute Assessment and Plan: CT chest showed 3.8 x 1.7 cm anterior mediastinal mass, increased from 1.9 x 1.6 cm on 10/03/21. This finding may be a combination of hematoma and a pre-exist
[2021-10-11] MEDS: INSULIN GLARGINE (*BKC) 100 UNITS/ML 55 UNITS SUB-Q ×2 (08:07→20:21)
[2021-10-11] MEDS: PANTOPRAZOLE SODIUM IV 40 MG VIAL IV PUSH (08:08)
[2021-10-11] MEDS: APIXABAN 5 MG TABLET PO ×2 (08:08→20:24)
[2021-10-11] MEDS: MINERAL OIL/WHITE PETROLATUM OINTMENT 1 APPLIC EACH EYE ×2 (08:08→20:30)
[2021-10-11] MEDS: polyethylene glycoL 3350 17 GM POWD.PACK PO (08:08)
[2021-10-11] MEDS: DORZOLAMIDE/TIMOLOL OPHTH SOL 10 ML BOTTLE 1 DROP EACH EYE ×2 (08:08→20:24)
[2021-10-11] MEDS: MUPIROCIN 2% OINT 22 GM TUBE 1 APPLIC TOPICAL (08:08)
[2021-10-11] MEDS: CALCIUM ACETATE 667 MG TABLET 1334 MG FEED TUBE ×3 (08:08→17:18)
[2021-10-11] MEDS: BRIMONIDINE TARTRATE 0.2% OP SOLN 5 ML BTL 1 DROP EACH EYE ×2 (08:08→20:24)
[2021-10-11] MEDS: allopurinoL 100 MG TABLET PO (08:09)
[2021-10-11] MEDS: ERGOCALCIFEROL 50,000 UNIT CAPSULE 50000 UNITS PO (08:09)
[2021-10-11] MEDS: SOD HYPOCHLORITE 1/4 STRENGTH 473 ML 1 APPLIC TOPICAL (08:10)
[2021-10-11] MEDS: SILVER SULFADIAZINE 1% CR 50 GM JAR (*BKC) 1 APPLIC TOPICAL (08:10)
--- NOTE | 2021-10-11 09:52 | P.PNNP_ITS ---
Progress Note: A&P Assessment and Plan (1) End-stage renal disease (ESRD): Code(s): N18.6 - End stage renal disease Status: Acute Assessment and Plan: * continue CCPD treatment while hospitalized * He is still volume overloaded. he had 2 reds and 1 green last night. He made 1600cc of ultrafiltration. * This is still more than he would get off with hemodialysis. Will continue this. * His potassium is okay. His BUN has come down some. * He needs more fluid off. Continue the 2 reds +1 green regimen. * Overall condition is fairly poor. Prognosis is not good. Family conference occurred this morning and family wants to continue all measures. (2) Cardiac arrest: Code(s): I46.9 - Cardiac arrest, cause unspecified Status: Acute Assessment and Plan: * etiology not clear * Cardiology following with recommendations noted * he follows some commands per nursing * continue supportive care (3) Acute respiratory failure with hypoxia: Code(s): J96.01 - Acute respiratory failure with hypoxia Status: Acute Assessment and Plan: * secondary to cardiac arrest and pneumonia * continue ventilator support * follow culture data * He is on Zosyn and vancomycin. (4) Hyponatremia: Code(s): E87.1 - Hypo-osmolality and hyponatremia Status: Acute Assessment and Plan: * Still low but stable. (5) Hypotension: Code(s): I95.9 - Hypotension, unspecified Status: Acute Assessment and Plan: * Blood pressure is low. He is on low-dose Levophed and dopamine. (6) Bradycardia: Code(s): R00.1 - Bradycardia, unspecified Status: Chronic Assessment and Plan: * apparently a chronic issue at baseline * Cardiology following * Heart rate is in the 60s (7) Community acquired pneumonia: Code(s): J18.9 - Pneumonia, unspecified organism Status: Acute Assessment and Plan: * as noted by admission and repeat imaging to date * follow culture data * on Zosyn and vancomycin (8) Anemia: Code(s): D64.9 - Anemia, unspecified Status: Chronic Assessment and Plan: * due to ESRD and possibly acute illness * Hold off on the Epogen because his hemoglobin is 11 Subjective Date/time seen: 10/11/21 09:52 Interval history: The patient is on the ventilator. He is sedated. He is on peritoneal dialysis. His fluid is clear. His treatment finished. He had 1600cc off. the green bag was on the heater. Will change it so that the red bag is on the heater. His blood pressure was also little bit soft overnight which can decrease the ultrafiltration rate. He was seen at 9:15 a.m. Getting slow tube feedings with Vital. Exam Narrative: WDWN Gentleman on the ventilator in the ICU sedated in NAD skin no rash or subcu nodules head ncat lungs Coarse to auscultation cor reg no rub or gallop abd BS+ nontender and soft ext 2+ edema Objective Data Vital Signs Vital Signs: Vital Signs - 24 hr 10/10/21 09:53 10/10/21 10:00 10/10/21 11:21 Temperature Pulse Rate 67 68 70 Respiratory Rate 18 Blood Pressure 118/67 117/68 Blood Pressure [Right Arm] Pulse Oximetry 94 99 10/10/21 12:00 10/10/21 14:00 10/10/21 14:20 Temperature Pulse Rate 65 73 76 Respiratory Rate
--- NOTE | 2021-10-11 09:52 | PM.PNNEP ---
Progress Note: A&P Assessment and Plan (1) End-stage renal disease (ESRD): Code(s): N18.6 - End stage renal disease Status: Acute Assessment and Plan: continue CCPD treatment while hospitalized He is still volume overloaded. he had 2 reds and 1 green last night. He made 1600cc of ultrafiltration. This is still more than he would get off with hemodialysis. Will continue this. His potassium is okay. His BUN has come down some. He needs more fluid off. Continue the 2 reds +1 green regimen. Overall condition is fairly poor. Prognosis is not good. Family conference occurred this morning and family wants to continue all measures. (2) Cardiac arrest: Code(s): I46.9 - Cardiac arrest, cause unspecified Status: Acute Assessment and Plan: etiology not clear Cardiology following with recommendations noted he follows some commands per nursing continue supportive care (3) Acute respiratory failure with hypoxia: Code(s): J96.01 - Acute respiratory failure with hypoxia Status: Acute Assessment and Plan: secondary to cardiac arrest and pneumonia continue ventilator support follow culture data He is on Zosyn and vancomycin. (4) Hyponatremia: Code(s): E87.1 - Hypo-osmolality and hyponatremia Status: Acute Assessment and Plan: Still low but stable. (5) Hypotension: Code(s): I95.9 - Hypotension, unspecified Status: Acute Assessment and Plan: Blood pressure is low. He is on low-dose Levophed and dopamine. (6) Bradycardia: Code(s): R00.1 - Bradycardia, unspecified Status: Chronic Assessment and Plan: apparently a chronic issue at baseline Cardiology following Heart rate is in the 60s (7) Community acquired pneumonia: Code(s): J18.9 - Pneumonia, unspecified organism Status: Acute Assessment and Plan: as noted by admission and repeat imaging to date follow culture data on Zosyn and vancomycin (8) Anemia: Code(s): D64.9 - Anemia, unspecified Status: Chronic Assessment and Plan: due to ESRD and possibly acute illness Hold off on the Epogen because his hemoglobin is 11 Subjective Date/time seen: 10/11/21 09:52 Interval history: The patient is on the ventilator. He is sedated. He is on peritoneal dialysis. His fluid is clear. His treatment finished. He had 1600cc off. the green bag was on the heater. Will change it so that the red bag is on the heater. His blood pressure was also little bit soft overnight which can decrease the ultrafiltration rate. He was seen at 9:15 a.m. Getting slow tube feedings with Vital. Exam Narrative: WDWN Gentleman on the ventilator in the ICU sedated in NAD skin no rash or subcu nodules head ncat lungs Coarse to auscultation cor reg no rub or gallop abd BS+ nontender and soft ext 2+ edema Objective Data Vital Signs Vital Signs: Vital Signs - 24 hr 10/10/21 09:53 10/10/21 10:00 10/10/21 11:21 Temperature Pulse Rate 67 68 70 Respiratory Rate 18 Blood Pressure 118/67 117/68 Blood Pressure [Right Arm] Pulse Oximetry 94 99 10/10/21 12:00 10/10/21 14:00 10/10/21 14:20 Temperature Pulse Rate 65 73 76 Respiratory Rate 18 19 Blood Pressure 117/68 103/55 L Blood Pressure [Right Arm] Pulse Oximetry 94 95 94 10/10/21 16:00 10/10/21 17:16 10/10/21 17:27 Temperature 36.7 C 36.7 C Pulse Rate 72 70 Respiratory Rate 21 H 21 H Blood Pressure 92/56 L Blood Pressure [Right Arm] 92/56 L Pulse Oximetry 94 94 10/10/21 18:00 10/10/21 19:59 10/10/21 20:00 Temperature 36.1 C L Pulse Rate 71 74 68 Respiratory Rate 18 19 Blood Pressure 95/58 L 124/69 112/69 Blood Pressure [Right Arm] Pulse Oximetry 95 93 10/10/21 21:53 10/10/21 22:00 10/10/21 22:20 Temperature 36.0 C L Pulse Rate 74 70 72 Respiratory Rate 18
[2021-10-11 10:23] LABS: Basophils Absolute Auto 0.1 K/mm3 (0.0-0.1); Basophils Percent Auto 0.6 % (0.2-1.2); Eosinophils Absolute Auto 0.8 K/mm3 (0-0.3); Eosinophils Percent Auto 5.6 % (0-4.4); Hematocrit 29.6 % (42.0-52.0); Immature Granulocyte Absolute 0.18 K/mm3 (0.00-0.031); Immature Granulocyte Percent A 1.3 % (0-0.5); Lymphocytes Absolute Auto 0.68 K/mm3 (0.9-3.2); Lymphocytes Percent Auto 4.7 % (18.3-44.2); Mean Corpuscular HGB Conc 33.8 g/dl (32-36); Mean Corpuscular Hemoglobin 31.3 pg (26-34); Mean Corpuscular Volume 92.8 fl (80-100); Mean Platelet Volume 10.8 fl (7.4-10.4); Monocytes Absolute Auto 1.4 K/mm3 (0.1-0.6); Monocytes Percent Auto 9.7 % (2.6-8.5); Neutrophils Absolute Auto 11.3 K/mm3 (1.3-6.7); Neutrophils Percent Auto 78.1 % (45.5-73.1); Platelet Count Result 320 k/mm3 (150-375); Red Blood Count 3.19 M/mm3 (4.6-6.20); Red Cell Distribution Width 15.4 % (11.5-14.5); White Blood Count 14.4 K/mm3 (4.5-10.0)
[2021-10-11 10:37] LABS: Alanine Aminotransferase 13 U/L (4-50); Albumin Level 2.9 g/dL (3.5-5.1); Alkaline Phosphatase 141 U/L (38-126); Anion Gap 11 mmol/L (8-16); Aspartate Amino Transferase 34 U/L (17-59); Bilirubin,Total 0.9 mg/dL (0.2-1.3); Blood Urea Nitrogen 77 mg/dL (9-20); Calcium 7.9 mg/dL (8.4-10.2); Carbon Dioxide 27 mmol/L (22-30); Chloride 90 mmol/L (98-107); Estimated CRCL calculation 12 ml/min; Estimated Glomerular Filt Rate 7; Glucose 191 mg/dL (65-110); Magnesium 2.2 mg/dL (1.6-2.3); Phosphorus 7.1 mg/dL (2.5-4.5); Potassium 3.7 mmol/L (3.4-5.0); Sodium 128 mmol/L (137-145)
[2021-10-11 10:56] LABS: Vancomycin Random 22.1 ug/mL (10-20)
[2021-10-11 11:18] LABS: Glucose Point of Care 248 mg/dl (65-105)
[2021-10-11] MEDS: DOPamine 400 MG/D5W 250 ML 400 MG/250 ML BAG 10.4 MG IV CONT (11:21)
[2021-10-11 11:28] LABS: Glucose Point of Care 164 mg/dl (65-105)
[2021-10-11 15:44] LABS: Glucose Point of Care 131 mg/dl (65-105)
[2021-10-11] MEDS: NOREPINEPHRINE 8 MG/D5W 250 ML 8 MG/250 ML BAG 9.38 MG IV CONT (17:17)
[2021-10-11 20:20] LABS: Glucose Point of Care 281 mg/dl (65-105)
[2021-10-11] MEDS: ROSUVASTATIN 10 MG TABLET PO (20:26)
[2021-10-11 23:34] LABS: Glucose Point of Care 300 mg/dl (65-105)
[2021-10-12] VITALS (27 sets, daily range): BP systolic 79–115; BP diastolic 47–66; PULSE 62–78; RESP 13–25; TEMP 37.1–37.4; O2SAT 93–98
[2021-10-12 04:52] LABS: Alveolar/Arterial O2 Gradient 117.6 mmHg; Base Excess ABG 1.8 mEq/l (+/-2.0); Carboxyhemoglobin 0.3 % THb (0-2.0); Fractional Inspired Oxygen 35 %; HCO3 ABG 26.2 mEq/l (22.0-26.0); Methemoglobin ABG 0.3 %THb (0-1.5); Oxygen Content ABG 15.1 %vol (16.0-22.0); Oxygen Saturation ABG 96.7 % (95.0-100.0); Oxyhemoglobin 95.4 % THb (90.0-100.0); PCO2 ABG 40.1 mmHg (35.0-45.0); PO2 ABG 85.3 mmHg (80.0-100.0); PO2 FiO2 Ratio Arterial Blood 2.44 %; Total Hemoglobin 11.2 g/dL (12.0-18.0); pH ABG 7.433 (7.350-7.450)
[2021-10-12 04:53] LABS: Device VENTILATOR; Modified Allen's Test Pass; Site Drawn LEFT RADIAL
[2021-10-12 04:54] LABS: Arterial Blood Gas PEEP 8 cmH2O; Arterial Blood Gas Tidal Volume 450 ml; Arterial Blood Gas Vent Mode CMV; Arterial Blood Gas Ventilator rate 18 /MIN
[2021-10-12 05:05] LABS: Glucose Point of Care 268 mg/dl (65-105)
[2021-10-12] MEDS: INSULIN ASPART (*BKC) 100 UNITS/ML SUB-Q ×2 (05:05→09:14)
[2021-10-12] MEDS: CENTRAL LINE FLUSH 10 ML IV PUSH ×3 (05:06→20:34)
[2021-10-12] MEDS: METOCLOPRAMIDE HCL INJ 10 MG/2 ML VIAL IV PUSH ×3 (05:06→17:04)
--- NOTE | 2021-10-12 08:15 | WPDINTPN ---
Progress Note: A&P Assessment and Plan (1) Acute respiratory failure with hypoxia: Code(s): J96.01 - Acute respiratory failure with hypoxia Status: Acute Assessment and Plan: Acute Respiratory failure secondary to cardiac arrest, pneumonia, pulmonary edema, left pleural effusion. Intubated on 10/04/2021 during code blue - Continue full mechanical ventilation support to prevent hypoxemia/hypercarbia and end organ damage. - ABG and PCXR reviewed, Currently on 35% FiO2 and peep of 8, will switch to ASV mode -off all sedation since 10/09 -10/07/2021: Sputum culture growing E coli, sensitive to cefepime, Zosyn, imipenem and gentamicin. Will repeat sputum cultures -continue Zosyn -patient also has been in negative fluid balance in the last 24 hours 10/09/2021: CT chest, abdomen, pelvis without contrast 1. Small right and moderate left pleural effusions with collapse of the bilateral lower lobes with additional dependent compressive atelectasis. 2. Cardiomegaly. 3. Nonspecific 2.2 x 1.4 cm anterior mediastinal mass with differential including enlarged lymph node or thymoma. 4. Small volume of ascites with peritoneal dialysis catheter. (2) End-stage renal disease on peritoneal dialysis: Code(s): N18.6 - End stage renal disease; Z99.2 - Dependence on renal dialysis Status: Acute Assessment and Plan: patient is being followed by Nephrology and is currently peritoneal dialysis. -additional fluid being removed per Nephrology -negative fluid balance in the last 24 hours (3) Cardiac arrest: Code(s): I46.9 - Cardiac arrest, cause unspecified Status: Acute Assessment and Plan: Its possible patient's cardiac arrest secondary to junctional bradycardia or slow AFib Troponins, although mildly elevated in presence of end-stage renal disease, remained flat EKG showed AFib/ junctional bradycardia with heart rate in 40s - wean Dopamine to maintain HR 50-60s -continue Levophed to maintain mean arterial pressures > 65 mmHg - he may need transvenous pacemaker and I have discussed with Cardiology - cardiology is following - continue Eliquis - 10/09: Discussed with Cardiology, maintain dopamine, once he is more stable will wean dopamine and evaluate -repeat head CT on 10/09: No acute intracranial findings or interval change, mild atrophy and microangiopathy. -patient opens his eyes to name and follows simple commands in all extremities 10/06/2021 Echo: - mild LVH; moderate-severe LV systolic dysfunction, ejection fraction about 30-35% - Moderate-severe aortic stenosis - Moderate pulmonary hypertension, RVSP 54 mmHg (4) Persistent atrial fibrillation: Code(s): I48.19 - Other persistent atrial fibrillation Status: Acute Assessment and Plan: currently in junctional bradycardia - see above - continue Eliquis (5) Bradycardia: Code(s): R00.1 - Bradycardia, unspecified Status: Chronic Assessment and Plan: see above (6) Pneumonia: Code(s): J18.9 - Pneumonia, unspecified organism Status: Acute Assessment and Plan: patient on the floor was being treated for community-acquired pneumonia antibiotics were broadened yesterday after intubation as possible patient may have aspirated 10/03/2021 Blood cultures: Negative Procalcitonin level 6.4 10/08: leukocystosis persists -10/07/2021: Sputum culture -growing E coli, sensitive to cefepime, Zosyn, imipenem and gentamicin continue vancomycin and Zosyn (started on 10/05/2021) (7) Insulin dependent diabetes mellitus: Status: Acute Assessment and Plan: Continue sliding scale insulin -Increase dose of Lantus (8) Mediastinal mass: Code(s): J98.59 - Other diseases of mediastinum, not elsewhere classified Status: Acute Assessment and Plan: CT chest showed 3.8 x 1.7 cm anterior mediastinal mass, increased from 1.9 x 1.6 cm on 10/03/21. This finding may be a combination
[2021-10-12] MEDS: polyethylene glycoL 3350 17 GM POWD.PACK PO (09:11)
[2021-10-12] MEDS: PANTOPRAZOLE SODIUM IV 40 MG VIAL IV PUSH (09:11)
[2021-10-12] MEDS: DORZOLAMIDE/TIMOLOL OPHTH SOL 10 ML BOTTLE 1 DROP EACH EYE ×2 (09:11→20:31)
[2021-10-12] MEDS: BRIMONIDINE TARTRATE 0.2% OP SOLN 5 ML BTL 1 DROP EACH EYE ×2 (09:11→20:31)
[2021-10-12] MEDS: CALCIUM ACETATE 667 MG TABLET 1334 MG FEED TUBE ×3 (09:11→16:40)
[2021-10-12] MEDS: allopurinoL 100 MG TABLET PO (09:12)
[2021-10-12] MEDS: MUPIROCIN 2% OINT 22 GM TUBE 1 APPLIC TOPICAL (09:12)
[2021-10-12] MEDS: SOD HYPOCHLORITE 1/4 STRENGTH 473 ML 1 APPLIC TOPICAL (09:12)
[2021-10-12] MEDS: APIXABAN 5 MG TABLET PO ×2 (09:12→20:32)
[2021-10-12] MEDS: MINERAL OIL/WHITE PETROLATUM OINTMENT 1 APPLIC EACH EYE ×2 (09:12→20:32)
[2021-10-12 09:13] LABS: Basophils Absolute Auto 0.1 K/mm3 (0.0-0.1); Basophils Percent Auto 0.5 % (0.2-1.2); Eosinophils Absolute Auto 0.8 K/mm3 (0-0.3); Eosinophils Percent Auto 5.2 % (0-4.4); Hematocrit 29.9 % (42.0-52.0); Hemoglobin 9.9 g/dL (14.0-18.0); Immature Granulocyte Absolute 0.22 K/mm3 (0.00-0.031); Immature Granulocyte Percent A 1.5 % (0-0.5); Lymphocytes Absolute Auto 0.63 K/mm3 (0.9-3.2); Lymphocytes Percent Auto 4.2 % (18.3-44.2); Mean Corpuscular HGB Conc 33.1 g/dl (32-36); Mean Corpuscular Hemoglobin 30.9 pg (26-34); Mean Corpuscular Volume 93.4 fl (80-100); Mean Platelet Volume 10.5 fl (7.4-10.4); Monocytes Absolute Auto 1.7 K/mm3 (0.1-0.6); Monocytes Percent Auto 11.3 % (2.6-8.5); Neutrophils Absolute Auto 11.7 K/mm3 (1.3-6.7); Neutrophils Percent Auto 77.3 % (45.5-73.1); Platelet Count Result 334 k/mm3 (150-375); Red Cell Distribution Width 15.2 % (11.5-14.5); White Blood Count 15.1 K/mm3 (4.5-10.0)
[2021-10-12] MEDS: INSULIN GLARGINE (*BKC) 100 UNITS/ML 60 UNITS SUB-Q ×2 (09:13→20:35)
[2021-10-12] MEDS: SILVER SULFADIAZINE 1% CR 50 GM JAR (*BKC) 1 APPLIC TOPICAL (09:15)
[2021-10-12 09:26] LABS: Alanine Aminotransferase 18 U/L (4-50); Alkaline Phosphatase 175 U/L (38-126); Anion Gap 11 mmol/L (8-16); Aspartate Amino Transferase 34 U/L (17-59); Blood Urea Nitrogen 75 mg/dL (9-20); Calcium 7.9 mg/dL (8.4-10.2); Carbon Dioxide 28 mmol/L (22-30); Chloride 90 mmol/L (98-107); Estimated CRCL calculation 8 ml/min; Estimated Glomerular Filt Rate 8; Glucose 144 mg/dL (65-110); Magnesium 2.2 mg/dL (1.6-2.3); Phosphorus 5.5 mg/dL (2.5-4.5); Potassium 3.6 mmol/L (3.4-5.0); Sodium 129 mmol/L (137-145)
[2021-10-12 09:33] LABS: Glucose Point of Care 259 mg/dl (65-105)
[2021-10-12 09:37] LABS: Platelet Estimate Adequate (Adequate); Poikilocytosis 1+ (NORMAL)
--- NOTE | 2021-10-12 09:39 | P.PNNP_ITS ---
Progress Note: A&P Assessment and Plan (1) End-stage renal disease (ESRD): Code(s): N18.6 - End stage renal disease Status: Acute Assessment and Plan: * continue CCPD treatment while hospitalized * He is still volume overloaded. he had 2 reds and 1 green last night. red on the heater bag. Volume off was up to 2400 * His potassium is okay. His BUN has come down some. * He needs more fluid off. Continue the 2 reds +1 green regimen. * Overall condition is fairly poor. Prognosis is not good. Family conference occurred this morning and family wants to continue all measures. (2) Cardiac arrest: Code(s): I46.9 - Cardiac arrest, cause unspecified Status: Acute Assessment and Plan: * etiology not clear * Cardiology following with recommendations noted * he follows some commands. He is off sedation. * continue supportive care (3) Acute respiratory failure with hypoxia: Code(s): J96.01 - Acute respiratory failure with hypoxia Status: Acute Assessment and Plan: * secondary to cardiac arrest and pneumonia * continue ventilator support * follow culture data * He is on Zosyn and vancomycin. (4) Hyponatremia: Code(s): E87.1 - Hypo-osmolality and hyponatremia Status: Acute Assessment and Plan: * Still low but stable. (5) Hypotension: Code(s): I95.9 - Hypotension, unspecified Status: Acute Assessment and Plan: * Blood pressure is low. He is on low-dose Levophed , and he is almost off the dopamine. (6) Bradycardia: Code(s): R00.1 - Bradycardia, unspecified Status: Chronic Assessment and Plan: * apparently a chronic issue at baseline * Cardiology following * Heart rate is in the 60s, even with the lower dose of dopamine. (7) Community acquired pneumonia: Code(s): J18.9 - Pneumonia, unspecified organism Status: Acute Assessment and Plan: * as noted by admission and repeat imaging to date * follow culture data * on Zosyn and vancomycin (8) Anemia: Code(s): D64.9 - Anemia, unspecified Status: Chronic Assessment and Plan: * due to ESRD and possibly acute illness * Hemoglobin down to 9.9. Will start Epogen. Subjective Date/time seen: 10/12/21 09:39 Interval history: The patient is on the ventilator. He is sedated. Patient had 2400cc of fluid removed overnight. The higher amount of fluid off is due to putting the 4.25% Dianeal on the heater and also because I increased the volumes. Exam Narrative: WDWN Gentleman on the ventilator in the ICU sedated in NAD skin no rash or subcu nodules head ncat lungs Coarse to auscultation cor reg no rub or gallop abd BS+ nontender and soft ext 2+ edema and no cyanosis Objective Data Vital Signs Vital Signs: Vital Signs - 24 hr 10/11/21 10:00 10/11/21 10:06 10/11/21 11:09 Temperature 36.1 C L Pulse Rate 68 68 70 Respiratory Rate 96 H 11 L Blood Pressure 85/50 L 85/50 L Blood Pressure [Right Arm] Pulse Oximetry 11 L 96 10/11/21 11:21 10/11/21 12:00 10/11/21 12:27 Temperature 36.8 C Pulse Rate 65 65 69 Respiratory Rate 13 Blood Pressure 111/58 L Blood Pressure [Right Arm] Pulse Oximetry 96 10/11/21 14:00
--- NOTE | 2021-10-12 09:39 | PM.PNNEP ---
Progress Note: A&P Assessment and Plan (1) End-stage renal disease (ESRD): Code(s): N18.6 - End stage renal disease Status: Acute Assessment and Plan: continue CCPD treatment while hospitalized He is still volume overloaded. he had 2 reds and 1 green last night. red on the heater bag. Volume off was up to 2400 His potassium is okay. His BUN has come down some. He needs more fluid off. Continue the 2 reds +1 green regimen. Overall condition is fairly poor. Prognosis is not good. Family conference occurred this morning and family wants to continue all measures. (2) Cardiac arrest: Code(s): I46.9 - Cardiac arrest, cause unspecified Status: Acute Assessment and Plan: etiology not clear Cardiology following with recommendations noted he follows some commands. He is off sedation. continue supportive care (3) Acute respiratory failure with hypoxia: Code(s): J96.01 - Acute respiratory failure with hypoxia Status: Acute Assessment and Plan: secondary to cardiac arrest and pneumonia continue ventilator support follow culture data He is on Zosyn and vancomycin. (4) Hyponatremia: Code(s): E87.1 - Hypo-osmolality and hyponatremia Status: Acute Assessment and Plan: Still low but stable. (5) Hypotension: Code(s): I95.9 - Hypotension, unspecified Status: Acute Assessment and Plan: Blood pressure is low. He is on low-dose Levophed , and he is almost off the dopamine. (6) Bradycardia: Code(s): R00.1 - Bradycardia, unspecified Status: Chronic Assessment and Plan: apparently a chronic issue at baseline Cardiology following Heart rate is in the 60s, even with the lower dose of dopamine. (7) Community acquired pneumonia: Code(s): J18.9 - Pneumonia, unspecified organism Status: Acute Assessment and Plan: as noted by admission and repeat imaging to date follow culture data on Zosyn and vancomycin (8) Anemia: Code(s): D64.9 - Anemia, unspecified Status: Chronic Assessment and Plan: due to ESRD and possibly acute illness Hemoglobin down to 9.9. Will start Epogen. Subjective Date/time seen: 10/12/21 09:39 Interval history: The patient is on the ventilator. He is sedated. Patient had 2400cc of fluid removed overnight. The higher amount of fluid off is due to putting the 4.25% Dianeal on the heater and also because I increased the volumes. Exam Narrative: WDWN Gentleman on the ventilator in the ICU sedated in NAD skin no rash or subcu nodules head ncat lungs Coarse to auscultation cor reg no rub or gallop abd BS+ nontender and soft ext 2+ edema and no cyanosis Objective Data Vital Signs Vital Signs: Vital Signs - 24 hr 10/11/21 10:00 10/11/21 10:06 10/11/21 11:09 Temperature 36.1 C L Pulse Rate 68 68 70 Respiratory Rate 96 H 11 L Blood Pressure 85/50 L 85/50 L Blood Pressure [Right Arm] Pulse Oximetry 11 L 96 10/11/21 11:21 10/11/21 12:00 10/11/21 12:27 Temperature 36.8 C Pulse Rate 65 65 69 Respiratory Rate 13 Blood Pressure 111/58 L Blood Pressure [Right Arm] Pulse Oximetry 96 10/11/21 14:00 10/11/21 14:12 10/11/21 15:45 Temperature Pulse Rate 67 73 94 Respiratory Rate 17 15 Blood Pressure 89/71 L Blood Pressure [Right Arm] Pulse Oximetry 96 96 94 10/11/21 15:46 10/11/21 16:00 10/11/21 17:17 Temperature 36.8 C Pulse Rate 69 68 Respiratory Rate 17 16 Blood Pressure 97/49 L 79/45 L Blood Pressure [Right Arm] 84/71 L Pulse Oximetry 95 10/11/21 17:34 10/11/21 18:00 10/11/21 18:19 Temperature Pulse Rate 74 72 69 Respiratory Rate 19 Blood Pressure 89/49 L 80/46 L Blood Pressure [Right Arm] Pulse Oximetry 96 95 10/11/21 19:55 10/11/21 20:00 10/11/21 20:08 Temperature 36.9 C Pulse Rate 71 67 71 Respiratory R
[2021-10-12] MEDS: EPOETIN ALFA-EPBX 10,000 UNITS/ML VIAL 10000 UNITS SUB-Q (11:45)
[2021-10-12 11:56] LABS: Glucose Point of Care 109 mg/dl (65-105)
[2021-10-12] MEDS: NOREPINEPHRINE 8 MG/D5W 250 ML 8 MG/250 ML BAG 15 MG IV CONT (12:19)
[2021-10-12] MEDS: DORNASE ALFA INH SOLN 1 MG/ML 2.5 ML AMP 2.5 MG INHALATION (13:46)
[2021-10-12 16:47] LABS: Glucose Point of Care 72 mg/dl (65-105)
[2021-10-12 16:47] LABS: Glucose Point of Care 66 mg/dl (65-105)
[2021-10-12] MEDS: DEXTROSE 50% 25 GM/50 ML SYRINGE IV PUSH (16:51)
[2021-10-12 17:54] LABS: Glucose Point of Care 169 mg/dl (65-105)
[2021-10-12 17:54] LABS: Glucose Point of Care 119 mg/dl (65-105)
[2021-10-12 18:33] LABS: Glucose Point of Care 171 mg/dl (65-105)
[2021-10-12 19:47] LABS: Glucose Point of Care 178 mg/dl (65-105)
[2021-10-12] MEDS: ROSUVASTATIN 10 MG TABLET PO (20:35)
[2021-10-13] VITALS (38 sets, daily range): BP systolic 79–170; BP diastolic 43–85; PULSE 57–92; RESP 12–27; TEMP 36.6–37.4; O2SAT 96–100
[2021-10-13 00:11] LABS: Glucose Point of Care 240 mg/dl (65-105)
[2021-10-13] MEDS: METOCLOPRAMIDE HCL INJ 10 MG/2 ML VIAL IV PUSH ×4 (00:31→17:56)
[2021-10-13] MEDS: INSULIN ASPART (*BKC) 100 UNITS/ML SUB-Q ×2 (00:31→05:36)
[2021-10-13] MEDS: NOREPINEPHRINE 8 MG/D5W 250 ML 8 MG/250 ML BAG 15 MG IV CONT ×2 (03:20→18:42)
[2021-10-13 05:04] LABS: Alveolar/Arterial O2 Gradient 118.9 mmHg; Base Excess ABG 0.1 mEq/l (+/-2.0); Carboxyhemoglobin 0.3 % THb (0-2.0); Fractional Inspired Oxygen 35 %; HCO3 ABG 24.3 mEq/l (22.0-26.0); Methemoglobin ABG 0.2 %THb (0-1.5); Oxygen Content ABG 14.4 %vol (16.0-22.0); Oxygen Saturation ABG 96.9 % (95.0-100.0); Oxyhemoglobin 95.8 % THb (90.0-100.0); PCO2 ABG 37.3 mmHg (35.0-45.0); PO2 ABG 87.3 mmHg (80.0-100.0); PO2 FiO2 Ratio Arterial Blood 2.49 %; Reduced Hemoglobin 3.7 %THb (0-5.0); Total Hemoglobin 10.6 g/dL (12.0-18.0); pH ABG 7.431 (7.350-7.450)
[2021-10-13 05:05] LABS: Device VENTILATOR; Modified Allen's Test Pass; Site Drawn RIGHT RADIAL
[2021-10-13 05:06] LABS: Arterial Blood Gas PEEP 8 cmH2O; Arterial Blood Gas Vent Mode ASV
[2021-10-13 05:32] LABS: Glucose Point of Care 278 mg/dl (65-105)
[2021-10-13] MEDS: CENTRAL LINE FLUSH 10 ML IV PUSH ×3 (05:36→22:02)
[2021-10-13] MEDS: DORNASE ALFA INH SOLN 1 MG/ML 2.5 ML AMP 2.5 MG INHALATION ×2 (08:48→20:22)
[2021-10-13] MEDS: CALCIUM ACETATE 667 MG TABLET 1334 MG FEED TUBE ×3 (08:59→17:56)
[2021-10-13] MEDS: APIXABAN 5 MG TABLET PO ×2 (09:00→20:17)
[2021-10-13] MEDS: allopurinoL 100 MG TABLET PO (09:00)
[2021-10-13] MEDS: PANTOPRAZOLE SODIUM IV 40 MG VIAL IV PUSH (09:00)
[2021-10-13] MEDS: MINERAL OIL/WHITE PETROLATUM OINTMENT 1 APPLIC EACH EYE ×2 (09:00→20:16)
[2021-10-13] MEDS: SOD HYPOCHLORITE 1/4 STRENGTH 473 ML 1 APPLIC TOPICAL (09:01)
[2021-10-13] MEDS: SILVER SULFADIAZINE 1% CR 50 GM JAR (*BKC) 1 APPLIC TOPICAL (09:02)
[2021-10-13] MEDS: BRIMONIDINE TARTRATE 0.2% OP SOLN 5 ML BTL 1 DROP EACH EYE ×2 (09:03→20:17)
[2021-10-13] MEDS: MUPIROCIN 2% OINT 22 GM TUBE 1 APPLIC TOPICAL (09:03)
[2021-10-13] MEDS: DORZOLAMIDE/TIMOLOL OPHTH SOL 10 ML BOTTLE 1 DROP EACH EYE ×2 (09:03→20:17)
[2021-10-13] MEDS: polyethylene glycoL 3350 17 GM POWD.PACK PO (09:07)
[2021-10-13] MEDS: INSULIN GLARGINE (*BKC) 100 UNITS/ML 60 UNITS SUB-Q ×2 (09:08→20:18)
--- NOTE | 2021-10-13 09:49 | WPDINTPN ---
Progress Note: A&P Assessment and Plan (1) Acute respiratory failure with hypoxia: Code(s): J96.01 - Acute respiratory failure with hypoxia Status: Acute Assessment and Plan: Acute Respiratory failure secondary to cardiac arrest, pneumonia, pulmonary edema, left pleural effusion. Intubated on 10/04/2021 during code blue - Continue full mechanical ventilation support to prevent hypoxemia/hypercarbia and end organ damage. - ABG and PCXR reviewed, -patient has been on ASV mode with 35% FiO2 and 8 of PEEP. -off all sedation since 10/09 -10/07/2021: Sputum culture growing E coli, sensitive to cefepime, Zosyn, imipenem and gentamicin. Will repeat sputum cultures -continue Zosyn -patient also has been in negative fluid balance in the last 24 hours -continues to have thick secretions from ET tube, on Pulmozyme and bronchodilators 10/09/2021: CT chest, abdomen, pelvis without contrast 1. Small right and moderate left pleural effusions with collapse of the bilateral lower lobes with additional dependent compressive atelectasis. 2. Cardiomegaly. 3. Nonspecific 2.2 x 1.4 cm anterior mediastinal mass with differential including enlarged lymph node or thymoma. 4. Small volume of ascites with peritoneal dialysis catheter. (2) End-stage renal disease on peritoneal dialysis: Code(s): N18.6 - End stage renal disease; Z99.2 - Dependence on renal dialysis Status: Acute Assessment and Plan: patient is being followed by Nephrology and is currently peritoneal dialysis. -additional fluid being removed per Nephrology -negative fluid balance in the last 24 hours (3) Cardiac arrest: Code(s): I46.9 - Cardiac arrest, cause unspecified Status: Acute Assessment and Plan: Its possible patient's cardiac arrest secondary to junctional bradycardia or slow AFib Troponins, although mildly elevated in presence of end-stage renal disease, remained flat EKG showed AFib/ junctional bradycardia with heart rate in 40s -off dopamine 10/12 -continue Levophed to maintain mean arterial pressures > 65 mmHg - he may need transvenous pacemaker and I have discussed with Cardiology - cardiology is following - continue Eliquis - 10/09: Discussed with Cardiology, maintain dopamine, once he is more stable will wean dopamine and evaluate -repeat head CT on 10/09: No acute intracranial findings or interval change, mild atrophy and microangiopathy. -patient opens his eyes to name and follows simple commands in all extremities 10/06/2021 Echo: - mild LVH; moderate-severe LV systolic dysfunction, ejection fraction about 30-35% - Moderate-severe aortic stenosis - Moderate pulmonary hypertension, RVSP 54 mmHg (4) Persistent atrial fibrillation: Code(s): I48.19 - Other persistent atrial fibrillation Status: Acute Assessment and Plan: currently in junctional bradycardia - see above - continue Eliquis (5) Bradycardia: Code(s): R00.1 - Bradycardia, unspecified Status: Chronic Assessment and Plan: see above (6) Pneumonia: Code(s): J18.9 - Pneumonia, unspecified organism Status: Acute Assessment and Plan: patient on the floor was being treated for community-acquired pneumonia antibiotics were broadened yesterday after intubation as possible patient may have aspirated 10/03/2021 Blood cultures: Negative Procalcitonin level 6.4 10/08: leukocystosis persists -10/07/2021: Sputum culture -growing E coli, sensitive to cefepime, Zosyn, imipenem and gentamicin continue vancomycin and Zosyn (started on 10/05/2021) (7) Insulin dependent diabetes mellitus: Status: Acute Assessment and Plan: Continue sliding scale insulin -Increase dose of Lantus (8) Mediastinal mass: Code(s): J98.59 - Other diseases of mediastinum, not elsewhere classified Status: Acute Assessment and Plan: CT chest showed 3.8 x 1.7 cm anterior mediastinal mass, increas
[2021-10-13 11:15] LABS: Ammonia < 9 umol/L (9-30)
--- NOTE | 2021-10-13 11:15 | PCFNICU ---
ICU Rounding Note: Pt current nutrition is Vital AR 1.2 at 70 ml/hr over 22 hours. Last recorded weight is 131 kg, up from 122.5 kg on admit. Bowel Motility:+BM reported 10/12 Labs Reviewed:no new labs to report. Meds Noted:Levophed, Miralax, Protonix, PhosLo, Crestor, Zosyn, Cymbalta, Renvela, Dulcolax Suppository. Skin: right foot, left lower leg-venous status ulcers. Additional Notes: Patient remains on mechanical vent and tube feedings of Vital AF 1.2 at 70 ml/hr over 22hours. Tolerating tube feeding per nursing. Free water flush 30 ml q 4 hours. Peritoneal Dialysis continues. Agree with diet orders. Following daily in ICU rounds. Will be reassessing every Wednesday and Wednesday.
[2021-10-13 11:56] LABS: Glucose Point of Care 165 mg/dl (65-105)
[2021-10-13 11:56] LABS: Glucose Point of Care 186 mg/dl (65-105)
[2021-10-13 12:17] LABS: Vancomycin Random 19.5 ug/mL (10-20)
[2021-10-13 12:27] LABS: Hematocrit 29.4 % (42.0-52.0); Hemoglobin 9.9 g/dL (14.0-18.0); Mean Corpuscular HGB Conc 33.7 g/dl (32-36); Mean Corpuscular Hemoglobin 31.4 pg (26-34); Mean Corpuscular Volume 93.3 fl (80-100); Mean Platelet Volume 10.7 fl (7.4-10.4); Platelet Count Result 341 k/mm3 (150-375); Red Blood Count 3.15 M/mm3 (4.6-6.20); Red Cell Distribution Width 15.2 % (11.5-14.5); White Blood Count 16.5 K/mm3 (4.5-10.0)
--- NOTE | 2021-10-13 12:38 | P.PNNP_ITS ---
Progress Note: A&P Assessment and Plan (1) End-stage renal disease (ESRD): Code(s): N18.6 - End stage renal disease Status: Acute Assessment and Plan: * continue CCPD treatment while hospitalized * goos ultrafiltration with current PD prescription (two 4.25% and one 2.5% diaenal overnight) * follow trend of electrolytes, voume status, and clearance (2) Cardiac arrest: Code(s): I46.9 - Cardiac arrest, cause unspecified Status: Acute Assessment and Plan: * etiology not clear * Cardiology following with recommendations noted * he follows some commands. He is off sedation. * continue supportive care (3) Acute respiratory failure with hypoxia: Code(s): J96.01 - Acute respiratory failure with hypoxia Status: Acute Assessment and Plan: * secondary to cardiac arrest and pneumonia * continue ventilator support * follow culture data * He is on Zosyn and vancomycin (4) Hyponatremia: Code(s): E87.1 - Hypo-osmolality and hyponatremia Status: Acute Assessment and Plan: * still low but stable * follow trend (5) Hypotension: Code(s): I95.9 - Hypotension, unspecified Status: Acute Assessment and Plan: * blood pressure is low * remains on levophed - wean as tolerated (6) Bradycardia: Code(s): R00.1 - Bradycardia, unspecified Status: Chronic Assessment and Plan: * apparently a chronic issue at baseline * Cardiology following (7) Community acquired pneumonia: Code(s): J18.9 - Pneumonia, unspecified organism Status: Acute Assessment and Plan: * as noted by admission and repeat imaging to date * follow culture data * on Zosyn and vancomycin (8) Anemia: Code(s): D64.9 - Anemia, unspecified Status: Chronic Assessment and Plan: * due to ESRD and possibly acute illness * on Epogen * follow H/H Subjective Date/time seen: 10/13/21 12:38 Chart reviewed from when last seen - assuming care from Dr. Combs; tolerating CCPD treatments overnight without any issues or problems; mentation seems better (following simple commands) while off sedation; remains on pressor therapy (levophed) at this time; tolerating tube feeding. Exam Narrative: General: WD/WN male intubatedand on mechanical ventilation Heart: normal S1 and S2; no rub Lungs: coarse breath sounds Abdomen: obese but soft, nontender, nondistended, positive bowel sounds; PD catheter in place Extremities: 2+ chronic bilateral edema Skin: chronic venous stasis changes present Objective Data Vital Signs Vital Signs: Vital Signs Temp Pulse Resp BP Pulse Ox 10/13/21 12:05 65 112/57 L 10/13/21 12:00 37.3 C 64 17 112/57 L 100 10/13/21 11:50 61 117/63 10/13/21 11:01 70 119/61 10/13/21 10:55 67 124/64 10/13/21 10:46 71 100 10/13/21 10:00 72 16 129/61 100 10/13/21 09:30 71 88/49 L 10/13/21 09:15 71 79/45 L 10/13/21 08:51 70 98 10/13/21 08:49 75 27 H 10/13/21 08:00 37.4 C 65 13 79/43 L 100 10/13/21 05:58 73 17 92/71 L 100 10/13/21 05:30 108/57 L 10/13/21 05:07 71 98 10/13/21 04:00 36.9 C 67 16 170/85 H 97 10/13/21 03:53 99 10/13/21
--- NOTE | 2021-10-13 12:38 | PM.PNNEP ---
Progress Note: A&P Assessment and Plan (1) End-stage renal disease (ESRD): Code(s): N18.6 - End stage renal disease Status: Acute Assessment and Plan: continue CCPD treatment while hospitalized goos ultrafiltration with current PD prescription (two 4.25% and one 2.5% diaenal overnight) follow trend of electrolytes, voume status, and clearance (2) Cardiac arrest: Code(s): I46.9 - Cardiac arrest, cause unspecified Status: Acute Assessment and Plan: etiology not clear Cardiology following with recommendations noted he follows some commands. He is off sedation. continue supportive care (3) Acute respiratory failure with hypoxia: Code(s): J96.01 - Acute respiratory failure with hypoxia Status: Acute Assessment and Plan: secondary to cardiac arrest and pneumonia continue ventilator support follow culture data He is on Zosyn and vancomycin (4) Hyponatremia: Code(s): E87.1 - Hypo-osmolality and hyponatremia Status: Acute Assessment and Plan: still low but stable follow trend (5) Hypotension: Code(s): I95.9 - Hypotension, unspecified Status: Acute Assessment and Plan: blood pressure is low remains on levophed - wean as tolerated (6) Bradycardia: Code(s): R00.1 - Bradycardia, unspecified Status: Chronic Assessment and Plan: apparently a chronic issue at baseline Cardiology following (7) Community acquired pneumonia: Code(s): J18.9 - Pneumonia, unspecified organism Status: Acute Assessment and Plan: as noted by admission and repeat imaging to date follow culture data on Zosyn and vancomycin (8) Anemia: Code(s): D64.9 - Anemia, unspecified Status: Chronic Assessment and Plan: due to ESRD and possibly acute illness on Epogen follow H/H Subjective Date/time seen: 10/13/21 12:38 Chart reviewed from when last seen - assuming care from Dr. Combs; tolerating CCPD treatments overnight without any issues or problems; mentation seems better (following simple commands) while off sedation; remains on pressor therapy (levophed) at this time; tolerating tube feeding. Exam Narrative: General: WD/WN male intubatedand on mechanical ventilation Heart: normal S1 and S2; no rub Lungs: coarse breath sounds Abdomen: obese but soft, nontender, nondistended, positive bowel sounds; PD catheter in place Extremities: 2+ chronic bilateral edema Skin: chronic venous stasis changes present Objective Data Vital Signs Vital Signs: Vital Signs Temp Pulse Resp BP Pulse Ox 10/13/21 12:05 65 112/57 L 10/13/21 12:00 37.3 C 64 17 112/57 L 100 10/13/21 11:50 61 117/63 10/13/21 11:01 70 119/61 10/13/21 10:55 67 124/64 10/13/21 10:46 71 100 10/13/21 10:00 72 16 129/61 100 10/13/21 09:30 71 88/49 L 10/13/21 09:15 71 79/45 L 10/13/21 08:51 70 98 10/13/21 08:49 75 27 H 10/13/21 08:00 37.4 C 65 13 79/43 L 100 10/13/21 05:58 73 17 92/71 L 100 10/13/21 05:30 108/57 L 10/13/21 05:07 71 98 10/13/21 04:00 36.9 C 67 16 170/85 H 97 10/13/21 03:53 99 10/13/21 03:20 72 105/59 L 10/13/21 02:15 70 98 10/13/21 02:00 70 21 H 111/67 99 10/13/21 00:16 70 102/56 L 10/13/21 00:00 37.1 C 70 24 H 108/51 L 99 10/12/21 23:20 71 98 10/12/21 22:00 71 13 87/47 L 97 10/12/21 20:30 71 97/57 L 10/12/21 20:00 37.1 C 69 13 115/66 98 10/12/21 18:00 68 13 93/52 L 98 Intake/Output Intake/Output: Intake & Output 10/10/21 10/11/21 10/12/21 10/13/21 23:59 23:59 23:59 23:59 Intake Total 988.1 2180 1914 1426 Output Total 2965 9180 6092 1656 [facility] -1976.9 [phone] Meds/Results Medications: Active Medications Generic Name Dose Route Start Last Admin Trade Name Freq PRN Reason Stop Dos
[2021-10-13 12:43] LABS: Anion Gap 12 mmol/L (8-16); Blood Urea Nitrogen 81 mg/dL (9-20); Carbon Dioxide 27 mmol/L (22-30); Chloride 89 mmol/L (98-107); Estimated CRCL calculation 12 ml/min; Estimated Glomerular Filt Rate 7; Glucose 165 mg/dL (65-110); Potassium 3.7 mmol/L (3.4-5.0); Sodium 128 mmol/L (137-145)
[2021-10-13 14:02] LABS: Magnesium 2.3 mg/dL (1.6-2.3); Phosphorus 5.2 mg/dL (2.5-4.5)
[2021-10-13] MEDS: IPRATROPIUM BR 0.02% INH SOLN 0.5 MG/2.5 ML VIAL INHALATION ×2 (15:00→20:22)
[2021-10-13] MEDS: ALBUTEROL SULFATE NEB 2.5 MG/0.5 ML INH INHALATION ×2 (15:00→20:22)
--- NOTE | 2021-10-13 15:20 | PM.PNCARD ---
Progress Note: A&P Assessment and Plan (1) Cardiac arrest: Code(s): I46.9 - Cardiac arrest, cause unspecified Status: Acute Assessment and Plan: There is no clear evidence for association with his bradycardia as a cause or contributor. Most likely secondary to hypoxia and or sepsis/septic shock with hypotension. The significance of the fact that he was on PD at the time also must be considered. At this time, most likely explanation respiratory decompensation, worsening pneumonia sepsis/septic shock. Unsuccessful attempt to wean dopamine. Apparently SBP dropped in the 70's, SpO2 decreased, but HR remained stable per RN. He has been weaned off of dopamine at this point. His blood pressure remains stable, he is still on Levophed that is being titrated. Heart rate is stable in the 60s, does drop into the mid to high 50s at times. If he becomes significantly bradycardic with hemodynamic instability would recommend restarting the dopamine drip. No plan or indication for transvenous or permanent pacer at this time. Patient is critically ill, prognosis guarded. (2) Acute respiratory failure with hypoxia: Code(s): J96.01 - Acute respiratory failure with hypoxia Status: Acute Assessment and Plan: Remains intubated on mechanical ventilatory support. Now with E.Coli in lungs. On IV antibiotics. Per Critical Care. (3) Septic shock: Code(s): A41.9 - Sepsis, unspecified organism; R65.21 - Severe sepsis with septic shock Status: Acute Assessment and Plan: Remains on norepinephrine. On broad-spectrum antibiotics. Management per critical care (4) Bradycardia: Code(s): R00.1 - Bradycardia, unspecified Status: Acute Assessment and Plan: Asymptomatic, chronic. This is indicative of underlying significant conduction system disease. (5) Persistent atrial fibrillation: Code(s): I48.19 - Other persistent atrial fibrillation Status: Acute Assessment and Plan: Atrial fibrillation is not new, chronic as well as his bradycardia. He has close follow-up with his biology tutor at [facility] with discussion regarding lead loose pacemaker implantation in the future. -Continue to avoid AV miles blocking agents. -Remains on systemic anticoagulation with Eliquis. (6) Elevated troponin: Code(s): R77.8 - Other specified abnormalities of plasma proteins Status: Acute Assessment and Plan: Type 2 infarction minimal elevation given renal failure, history of CAD, hypertension, hypoxia not secondary to acute coronary syndrome and/or plaque rupture. (7) End-stage renal disease (ESRD): Code(s): N18.6 - End stage renal disease Status: Acute Assessment and Plan: Peritoneal dialysis per Nephrology. (8) Ischemic cardiomyopathy: Code(s): I25.5 - Ischemic cardiomyopathy Status: Acute Assessment and Plan: Stable, chronic heart failure with reduced ejection fraction reasonably compensated. Volume management with Nephrology and peritoneal dialysis. (9) Community acquired pneumonia: Code(s): J18.9 - Pneumonia, unspecified organism Status: Acute Assessment and Plan: Management per primary service with antibiotics as appropriate. Chest x-ray with worsening left-sided infiltrate. CT chest pending. 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 Monitor for bleeding. (11) Status post fall: Code(s): Z91.81 - History of falling Status: Acute Assessment and Plan: PT OT eval. Management per primary service. Subjective Date/time seen: 10/13/21 15:20 Interval history: 65-year-old man with: History of ischemic cardiomyopathy, chronic atrial fibrillation LV systolic dysfunction and [id number] aortic valve stenosis. Patient admitted here with sepsis black
--- NOTE | 2021-10-13 15:39 | PM.IMPN ---
Progress Note: A&P Assessment and Plan (1) Acute respiratory failure with hypoxia: Code(s): J96.01 - Acute respiratory failure with hypoxia Status: Acute Assessment and Plan: Acute Respiratory failure secondary to cardiac arrest, pneumonia, pulmonary edema, left pleural effusion. Intubated on 10/04/2021 during code blue - Continue full mechanical ventilation support to prevent hypoxemia/hypercarbia and end organ damage. - ABG and PCXR reviewed, Currently on 40% FiO2 and peep of 8 - Low tidal volume ventilation strategy to prevent volutrauma - Patient is already on anticoagulation but PE is another unlikely possibility. Unfortunately he is allergic to iodine contrast and heparin. He has end-stage renal disease and on PD. - Lower extremity Dopplers were negative for DVT. Unable to do CTA due to allergy to contrast. - Regarding anticoagulation heparin infusion and Lovenox are not an option. His claims that patient is allergic to heparin and I suspect patient may have a history of HIT although I do not see any documentation. For now, I will continue Eliquis but in case we need to switch to IV, I will switch him to argatroban. - on Fentanyl and versed for sedation, which has been turned off 10/07/2021: Chest CT IMPRESSION: 1. Small right and large left pleural effusions. 2. Acute fractures of left second-sixth ribs. 3. 3.8 x 1.7 cm anterior mediastinal mass, increased from 1.9 x 1.6 cm on 10/03/21. This finding may be a combination of hematoma and a pre-existing mass such as thymoma or lymphoma. 5. Small volume of ascites with peritoneal dialysis catheter. 6. Mild bilateral external iliac lymphadenopathy, likely reactive. Remains on ASV mode further management per vaccine customer representative (2) End-stage renal disease on peritoneal dialysis: Code(s): N18.6 - End stage renal disease; Z99.2 - Dependence on renal dialysis Status: Acute Assessment and Plan: patient is being followed by Nephrology and is currently peritoneal dialysis. (3) Cardiac arrest: Code(s): I46.9 - Cardiac arrest, cause unspecified Status: Acute Assessment and Plan: Its possible patient's cardiac arrest secondary to junctional bradycardia or slow AFib Troponins, although mildly elevated in presence of end-stage renal disease, remained flat EKG showed AFib/ junctional bradycardia with heart rate in 40s - wean Dopamine to maintain HR 50-60s - he may need transvenous pacemaker - cardiology is following - continue Eliquis - head CT was negative for any hemorrhage 10/06/2021 Echo: - mild LVH; moderate-severe LV systolic dysfunction, ejection fraction about 30-35% - Moderate-severe aortic stenosis - Moderate pulmonary hypertension, RVSP 54 mmHg (4) Persistent atrial fibrillation: Code(s): I48.19 - Other persistent atrial fibrillation Status: Acute Assessment and Plan: currently in junctional bradycardia - see above - continue Eliquis (5) Bradycardia: Code(s): R00.1 - Bradycardia, unspecified Status: Chronic Assessment and Plan: see above (6) Pneumonia: Code(s): J18.9 - Pneumonia, unspecified organism Status: Acute Assessment and Plan: patient on the floor was being treated for community-acquired pneumonia antibiotics were broadenedafter intubation as possible patient may have aspirated continue vancomycin and Zosyn Cultures have been sent and are negative till now Procalcitonin level 6.4 10/08: leukocystosis persists (7) Insulin dependent diabetes mellitus: Status: Acute Assessment and Plan: Continue sliding scale insulin continue Lantus for ICU protocol (8) Mediastinal mass: Code(s): J98.59 - Other diseases of mediastinum, not elsewhere classified Status: Acute Assessment and Plan: CT chest showed 3.8 x 1.7 cm anterior mediastinal mass, increased from 1.9 x 1.6 cm on 10/03/21. This finding may be a combina
[2021-10-13] MEDS: EPOETIN ALFA-EPBX 10,000 UNITS/ML VIAL 10000 UNITS SUB-Q (18:05)
[2021-10-13 18:08] LABS: Glucose Point of Care 159 mg/dl (65-105)
[2021-10-13] MEDS: ROSUVASTATIN 10 MG TABLET PO (20:19)
[2021-10-13 21:53] LABS: Glucose Point of Care 118 mg/dl (65-105)
[2021-10-14] VITALS (34 sets, daily range): BP systolic 84–117; BP diastolic 46–64; PULSE 66–76; RESP 11–35; TEMP 35.7–37.6; O2SAT 93–100
[2021-10-14 00:07] LABS: Glucose Point of Care 271 mg/dl (65-105)
[2021-10-14] MEDS: METOCLOPRAMIDE HCL INJ 10 MG/2 ML VIAL IV PUSH ×5 (00:09→23:48)
[2021-10-14] MEDS: INSULIN ASPART (*BKC) 100 UNITS/ML SUB-Q ×6 (00:12→23:45)
[2021-10-14] MEDS: IPRATROPIUM BR 0.02% INH SOLN 0.5 MG/2.5 ML VIAL INHALATION ×4 (01:33→19:18)
[2021-10-14] MEDS: ALBUTEROL SULFATE NEB 2.5 MG/0.5 ML INH INHALATION ×4 (01:33→19:18)
[2021-10-14 04:42] LABS: Basophils Absolute Auto 0.1 K/mm3 (0.0-0.1); Basophils Percent Auto 0.7 % (0.2-1.2); Eosinophils Absolute Auto 0.7 K/mm3 (0-0.3); Eosinophils Percent Auto 5.1 % (0-4.4); Hematocrit 26.3 % (42.0-52.0); Immature Granulocyte Percent A 2.8 % (0-0.5); Lymphocytes Absolute Auto 0.81 K/mm3 (0.9-3.2); Lymphocytes Percent Auto 5.7 % (18.3-44.2); Mean Corpuscular HGB Conc 34.2 g/dl (32-36); Mean Corpuscular Volume 90.7 fl (80-100); Mean Platelet Volume 11.2 fl (7.4-10.4); Monocytes Absolute Auto 1.4 K/mm3 (0.1-0.6); Monocytes Percent Auto 10.1 % (2.6-8.5); Neutrophils Absolute Auto 10.7 K/mm3 (1.3-6.7); Neutrophils Percent Auto 75.6 % (45.5-73.1); Platelet Count Result 377 k/mm3 (150-375); Red Cell Distribution Width 14.9 % (11.5-14.5); White Blood Count 14.2 K/mm3 (4.5-10.0)
[2021-10-14 04:55] LABS: Alanine Aminotransferase 50 U/L (4-50); Albumin Level 3.1 g/dL (3.5-5.1); Alkaline Phosphatase 254 U/L (38-126); Anion Gap 15 mmol/L (8-16); Aspartate Amino Transferase 58 U/L (17-59); Bilirubin,Total 0.8 mg/dL (0.2-1.3); Blood Urea Nitrogen 85 mg/dL (9-20); Calcium 8.2 mg/dL (8.4-10.2); Carbon Dioxide 25 mmol/L (22-30); Chloride 89 mmol/L (98-107); Estimated CRCL calculation 12 ml/min; Estimated Glomerular Filt Rate 7; Glucose 306 mg/dL (65-110); Magnesium 2.3 mg/dL (1.6-2.3); Phosphorus 4.4 mg/dL (2.5-4.5); Potassium 3.4 mmol/L (3.4-5.0); Sodium 129 mmol/L (137-145)
[2021-10-14] MEDS: CENTRAL LINE FLUSH 10 ML IV PUSH ×3 (05:13→22:14)
[2021-10-14 05:20] LABS: Alveolar/Arterial O2 Gradient 102.1 mmHg; Base Excess ABG 1.2 mEq/l (+/-2.0); Carboxyhemoglobin 0.3 % THb (0-2.0); Fractional Inspired Oxygen 30 %; HCO3 ABG 25.3 mEq/l (22.0-26.0); Methemoglobin ABG 0.2 %THb (0-1.5); Oxygen Content ABG 14.4 %vol (16.0-22.0); Oxygen Saturation ABG 94.1 % (95.0-100.0); Oxyhemoglobin 92.9 % THb (90.0-100.0); PCO2 ABG 37.9 mmHg (35.0-45.0); PO2 ABG 67.3 mmHg (80.0-100.0); PO2 FiO2 Ratio Arterial Blood 2.24 %; Reduced Hemoglobin 6.6 %THb (0-5.0); pH ABG 7.442 (7.350-7.450)
[2021-10-14 05:23] LABS: Device VENTILATOR; Modified Allen's Test Unable to perform; Site Drawn RIGHT RADIAL
[2021-10-14 05:24] LABS: Arterial Blood Gas PEEP 8 cmH2O; Arterial Blood Gas Vent Mode ASV
[2021-10-14] MEDS: MIDODRINE HCL 10 MG TABLET FEED TUBE ×3 (08:12→22:14)
[2021-10-14] MEDS: PANTOPRAZOLE SODIUM IV 40 MG VIAL IV PUSH (08:12)
[2021-10-14] MEDS: allopurinoL 100 MG TABLET PO (08:13)
[2021-10-14] MEDS: CALCIUM ACETATE 667 MG TABLET 1334 MG FEED TUBE ×3 (08:13→18:10)
[2021-10-14] MEDS: DORZOLAMIDE/TIMOLOL OPHTH SOL 10 ML BOTTLE 1 DROP EACH EYE ×2 (08:13→20:26)
[2021-10-14] MEDS: polyethylene glycoL 3350 17 GM POWD.PACK PO (08:13)
[2021-10-14] MEDS: APIXABAN 5 MG TABLET PO ×2 (08:13→20:29)
[2021-10-14] MEDS: MINERAL OIL/WHITE PETROLATUM OINTMENT 1 APPLIC EACH EYE (08:14)
[2021-10-14] MEDS: BRIMONIDINE TARTRATE 0.2% OP SOLN 5 ML BTL 1 DROP EACH EYE ×2 (08:14→20:26)
--- NOTE | 2021-10-14 08:24 | WPDINTPN ---
Progress Note: A&P Assessment and Plan (1) Acute respiratory failure with hypoxia: Code(s): J96.01 - Acute respiratory failure with hypoxia Status: Acute Assessment and Plan: Acute Respiratory failure secondary to cardiac arrest, pneumonia, pulmonary edema, left pleural effusion. Intubated on 10/04/2021 during code blue - Continue full mechanical ventilation support to prevent hypoxemia/hypercarbia and end organ damage. - ABG and PCXR reviewed, -patient has been on ASV mode with 35% FiO2 and 8 of PEEP. -off all sedation since 10/09 -10/07/2021: Sputum culture growing E coli, sensitive to cefepime, Zosyn, imipenem and gentamicin. - 10/11 -repeat culture still growing E coli --10/14 DC Vanc, change Zosyn to imipenem -continue to try to remove as much fluid possible but PD -continues to have thick secretions from ET tube, on Pulmozyme and bronchodilators -I placed patient on PSV this morning and he had low tidal volumes and high respiratory rate on 11/09. PSV changed to 02/09. Continue as tolerated and wean if possible -it is very likely patient may need tracheostomy due to his mental status and respiratory failure. Patient was intubated on 10/04 and today is day 11 on the ventilator. Patient's family is agreeable to tracheostomy if needed as he has had that in the past. 10/09/2021: CT chest, abdomen, pelvis without contrast 1. Small right and moderate left pleural effusions with collapse of the bilateral lower lobes with additional dependent compressive atelectasis. 2. Cardiomegaly. 3. Nonspecific 2.2 x 1.4 cm anterior mediastinal mass with differential including enlarged lymph node or thymoma. 4. Small volume of ascites with peritoneal dialysis catheter. (2) End-stage renal disease on peritoneal dialysis: Code(s): N18.6 - End stage renal disease; Z99.2 - Dependence on renal dialysis Status: Acute Assessment and Plan: patient is being followed by Nephrology and is currently peritoneal dialysis. -additional fluid being removed per Nephrology (3) Cardiac arrest: Code(s): I46.9 - Cardiac arrest, cause unspecified Status: Acute Assessment and Plan: Its possible patient's cardiac arrest secondary to junctional bradycardia or slow AFib Troponins, although mildly elevated in presence of end-stage renal disease, remained flat EKG showed AFib/ junctional bradycardia with heart rate in 40s -off dopamine 10/12 -continue Levophed to maintain mean arterial pressures > 65 mmHg - he may need transvenous pacemaker and I have discussed with Cardiology - cardiology is following - continue Eliquis - 10/09: Discussed with Cardiology, maintain dopamine, once he is more stable will wean dopamine and evaluate -repeat head CT on 10/09: No acute intracranial findings or interval change, mild atrophy and microangiopathy. -patient opens his eyes to name and follows simple commands in all extremities 10/06/2021 Echo: - mild LVH; moderate-severe LV systolic dysfunction, ejection fraction about 30-35% - Moderate-severe aortic stenosis - Moderate pulmonary hypertension, RVSP 54 mmHg (4) Persistent atrial fibrillation: Code(s): I48.19 - Other persistent atrial fibrillation Status: Acute Assessment and Plan: currently in junctional bradycardia - see above - continue Eliquis (5) Bradycardia: Code(s): R00.1 - Bradycardia, unspecified Status: Chronic Assessment and Plan: see above (6) Pneumonia: Code(s): J18.9 - Pneumonia, unspecified organism Status: Acute Assessment and Plan: patient on the floor was being treated for community-acquired pneumonia antibiotics were broadened yesterday after intubation as possible patient may have aspirated 10/03/2021 Blood cultures: Negative Procalcitonin level 6.4 10/08: leukocystosis persists -10/07/2021: Sputum culture -growing E coli, sensitive to cefepime, Zosyn, imipenem and gentamicin - 10/11 -repeat cul
[2021-10-14 08:29] LABS: Glucose Point of Care 320 mg/dl (65-105)
[2021-10-14] MEDS: SOD HYPOCHLORITE 1/4 STRENGTH 473 ML 1 APPLIC TOPICAL (08:29)
[2021-10-14] MEDS: SILVER SULFADIAZINE 1% CR 50 GM JAR (*BKC) 1 APPLIC TOPICAL (08:29)
[2021-10-14] MEDS: MUPIROCIN 2% OINT 22 GM TUBE 1 APPLIC TOPICAL (08:30)
[2021-10-14] MEDS: INSULIN GLARGINE (*BKC) 100 UNITS/ML 60 UNITS SUB-Q ×2 (08:30→20:31)
[2021-10-14] MEDS: DORNASE ALFA INH SOLN 1 MG/ML 2.5 ML AMP 2.5 MG INHALATION ×2 (08:49→19:18)
--- NOTE | 2021-10-14 11:35 | PCNFU ---
Nutrition Follow-Up Complete: Inadequate Oral Intake as related to mechanical ventilation as evidenced by NPO. Goal: Meet estimated nutritional needs Patient is progressing towards goal. We will continue current goal. Pt current nutrition is Vital AF 1.2 at 70 ml/hr over 22 hours. Last recorded weight is 127.4 kg, up from 122.5 kg on admit. Bowel Motility:+BM reported 10/12 Labs Reviewed:Glu 306,Cr 7.5, BUN 85, GFR 7,Na 129, Hct 26.3,Hgb 9.0 Meds Noted:Levophed, Miralax, Protonix, PhosLo, Crestor, Zosyn, Cymbalta, Renvela, Dulcolax Suppository, Eliquis, Lantus, Novolog. Skin: right foot, left lower leg-venous status ulcer. Additional Notes: Patient remains on mechanical vent, Cpap trial today. Tube feedings of Vital AF 1.2 at 70 ml/hr over 22 hours providing 1848 kcals/116 gms protein/1249 ml water. Current tube feeding is meeting 100% of caloric/protein needs. Free water flush 30 ml q 4 hours. Agree with diet orders. Will be monitoring in ICU rounds and reassessing every Wednesday and Wednesday.
[2021-10-14] MEDS: NOREPINEPHRINE 8 MG/D5W 250 ML 8 MG/250 ML BAG 18.75 MG IV CONT (11:36)
[2021-10-14 12:00] LABS: Glucose Point of Care 219 mg/dl (65-105)
--- NOTE | 2021-10-14 12:06 | P.PNNP_ITS ---
Progress Note: A&P Assessment and Plan (1) End-stage renal disease (ESRD): Code(s): N18.6 - End stage renal disease Status: Acute Assessment and Plan: * continue CCPD treatment while hospitalized * goos ultrafiltration with current PD prescription (two 4.25% and one 2.5% diaenal overnight) * follow trend of electrolytes, voume status, and clearance (2) Cardiac arrest: Code(s): I46.9 - Cardiac arrest, cause unspecified Status: Acute Assessment and Plan: * etiology not clear * Cardiology following with recommendations noted * he follows some commands. He is off sedation. * continue supportive care (3) Acute respiratory failure with hypoxia: Code(s): J96.01 - Acute respiratory failure with hypoxia Status: Acute Assessment and Plan: * secondary to cardiac arrest and pneumonia * continue ventilator support * completed antibiotic therapy (4) Hyponatremia: Code(s): E87.1 - Hypo-osmolality and hyponatremia Status: Acute Assessment and Plan: * still low but stable * follow trend (5) Hypotension: Code(s): I95.9 - Hypotension, unspecified Status: Acute Assessment and Plan: * blood pressure is low * remains on levophed - wean as tolerated (6) Bradycardia: Code(s): R00.1 - Bradycardia, unspecified Status: Chronic Assessment and Plan: * apparently a chronic issue at baseline * Cardiology following (7) Anemia: Code(s): D64.9 - Anemia, unspecified Status: Chronic Assessment and Plan: * due to ESRD and possibly acute illness * on Epogen * follow H/H Will continue to follow. Subjective Date/time seen: 10/14/21 12:06 Cotninues to tolerate aggressive ultrafiltration with CCPD but remains on venilator support with the need for vasopressor therapy to maintain his MAP; otherwise, no other significant changes noted. Exam Narrative: General: WD/WN male intubatedand on mechanical ventilation Heart: normal S1 and S2; no rub Lungs: coarse breath sounds Abdomen: obese but soft, nontender, nondistended, positive bowel sounds; PD catheter in place Extremities: 2+ chronic bilateral edema Skin: chronic venous stasis changes noted Objective Data Vital Signs Vital Signs: Vital Signs Temp Pulse Resp BP Pulse Ox 10/14/21 11:36 71 101/58 L 10/14/21 10:04 73 117/59 L 10/14/21 10:00 74 27 H 117/59 L 97 10/14/21 09:20 37.6 C H 72 35 H 84/46 L 10/14/21 08:21 72 84/46 L 10/14/21 08:00 37.6 C 74 27 H 95/52 L 97 10/14/21 07:52 75 35 H 10/14/21 07:45 74 28 H 96 10/14/21 06:00 76 15 94/55 L 98 10/14/21 05:05 76 97 10/14/21 04:00 37.6 C H 71 15 99/57 L 100 10/14/21 02:00 68 13 92/55 L 100 10/14/21 01:42 68 12 10/14/21 01:40 68 100 10/14/21 01:34 67 11 L 10/14/21 00:21 68 109/61 10/14/21 00:00 36.8 C 67 21 H 109/61 100 10/13/21 23:10 68 100 10/13/21 22:00 69 15 120/62 100 10/13/21 21:48 68 86/50 L 10/13/21 20:36 68 27 H 10/13/21 20:22 69 17 100 10/13/21 20:00 36.9 C 67 16 100/54 L 100 10/13/21 18:42 63 96/58 L 10/13/21 18:35 65
--- NOTE | 2021-10-14 12:06 | PM.PNNEP ---
Progress Note: A&P Assessment and Plan (1) End-stage renal disease (ESRD): Code(s): N18.6 - End stage renal disease Status: Acute Assessment and Plan: continue CCPD treatment while hospitalized goos ultrafiltration with current PD prescription (two 4.25% and one 2.5% diaenal overnight) follow trend of electrolytes, voume status, and clearance (2) Cardiac arrest: Code(s): I46.9 - Cardiac arrest, cause unspecified Status: Acute Assessment and Plan: etiology not clear Cardiology following with recommendations noted he follows some commands. He is off sedation. continue supportive care (3) Acute respiratory failure with hypoxia: Code(s): J96.01 - Acute respiratory failure with hypoxia Status: Acute Assessment and Plan: secondary to cardiac arrest and pneumonia continue ventilator support completed antibiotic therapy (4) Hyponatremia: Code(s): E87.1 - Hypo-osmolality and hyponatremia Status: Acute Assessment and Plan: still low but stable follow trend (5) Hypotension: Code(s): I95.9 - Hypotension, unspecified Status: Acute Assessment and Plan: blood pressure is low remains on levophed - wean as tolerated (6) Bradycardia: Code(s): R00.1 - Bradycardia, unspecified Status: Chronic Assessment and Plan: apparently a chronic issue at baseline Cardiology following (7) Anemia: Code(s): D64.9 - Anemia, unspecified Status: Chronic Assessment and Plan: due to ESRD and possibly acute illness on Epogen follow H/H Will continue to follow. Subjective Date/time seen: 10/14/21 12:06 Cotninues to tolerate aggressive ultrafiltration with CCPD but remains on venilator support with the need for vasopressor therapy to maintain his MAP; otherwise, no other significant changes noted. Exam Narrative: General: WD/WN male intubatedand on mechanical ventilation Heart: normal S1 and S2; no rub Lungs: coarse breath sounds Abdomen: obese but soft, nontender, nondistended, positive bowel sounds; PD catheter in place Extremities: 2+ chronic bilateral edema Skin: chronic venous stasis changes noted Objective Data Vital Signs Vital Signs: Vital Signs Temp Pulse Resp BP Pulse Ox 10/14/21 11:36 71 101/58 L 10/14/21 10:04 73 117/59 L 10/14/21 10:00 74 27 H 117/59 L 97 10/14/21 09:20 37.6 C H 72 35 H 84/46 L 10/14/21 08:21 72 84/46 L 10/14/21 08:00 37.6 C 74 27 H 95/52 L 97 10/14/21 07:52 75 35 H 10/14/21 07:45 74 28 H 96 10/14/21 06:00 76 15 94/55 L 98 10/14/21 05:05 76 97 10/14/21 04:00 37.6 C H 71 15 99/57 L 100 10/14/21 02:00 68 13 92/55 L 100 10/14/21 01:42 68 12 10/14/21 01:40 68 100 10/14/21 01:34 67 11 L 10/14/21 00:21 68 109/61 10/14/21 00:00 36.8 C 67 21 H 109/61 100 10/13/21 23:10 68 100 10/13/21 22:00 69 15 120/62 100 10/13/21 21:48 68 86/50 L 10/13/21 20:36 68 27 H 10/13/21 20:22 69 17 100 10/13/21 20:00 36.9 C 67 16 100/54 L 100 10/13/21 18:42 63 96/58 L 10/13/21 18:35 65 10/13/21 18:00 64 22 H 111/55 L 100 10/13/21 17:40 65 100 10/13/21 16:00 36.6 C 57 L 19 107/58 L 100 10/13/21 15:13 57 L 13 10/13/21 15:05 62 100 10/13/21 15:02 57 L 13 10/13/21 14:04 60 119/64 10/13/21 14:00 62 12 119/64 100 Intake/Output Intake/Output: Intake & Output 10/11/21 10/12/21 10/13/21 10/14/21 23:59 23:59 23:59 23:59 Intake Total 2180 1914 2873 1238.3 Output Total 1850 2489 1653 3048 Balance 330 -445 1220 -1809.7 Meds/Results Medications: Active Medications Generic Name Dose Route Start Last Admin Trade Name Freq PRN Reason Stop Dose Admin Albuterol 2.5 mg 10/13/21 14:00 10/14/21 07:45 Albuterol Sulfate Neb 2.5 Mg/0.5 Ml Inh INHALATION
--- NOTE | 2021-10-14 12:42 | IVDEFINITY ---
Addendum entered by Rekha Hanna, GISELE 10/14/21 12:43: Medication incident report involving electronic musical instrument repairer Domitila Chandler has been entered on this patient who was on a ventilator at time of his study. Definity was administered which was beneficial to patient although patient had a allergy to Definity which is backpain. Allergy was not on patient order and was not document in emr until around 10 am. test done at 850 Original Note: Prior to administration of IV Definity the patient was educated on the risks and benefits of the imaging enhancing agent including potential adverse side effects. The patient verbalized understanding. Allergies were verified. No exclusion criteria were identified and at least one of the following inclusion criteria were met: 1) physician request, 2) patient technically difficult to image (per the [place] [employer] guidelines of two or more segments not discernable within the apical view), or 3) questionable left ventricular function. ?
--- NOTE | 2021-10-14 13:34 | PM.PNCARD ---
Progress Note: A&P Assessment and Plan (1) Cardiac arrest: Code(s): I46.9 - Cardiac arrest, cause unspecified Status: Acute Assessment and Plan: There is no clear evidence for association with his bradycardia as a cause or contributor. Most likely secondary to hypoxia and or sepsis/septic shock with hypotension. The significance of the fact that he was on PD at the time also must be considered. At this time, most likely explanation respiratory decompensation, worsening pneumonia sepsis/septic shock. He has been weaned off of dopamine at this point. His blood pressure remains stable, he is still on Levophed that is being titrated. Heart rate is stable in the 60s. If he becomes significantly bradycardic with hemodynamic instability would recommend restarting the dopamine drip. No plan or indication for transvenous or permanent pacer at this time. Patient is critically ill, prognosis guarded. (2) Acute respiratory failure with hypoxia: Code(s): J96.01 - Acute respiratory failure with hypoxia Status: Acute Assessment and Plan: Remains intubated on mechanical ventilatory support. On IV antibiotics. Per Critical Care. (3) Septic shock: Code(s): A41.9 - Sepsis, unspecified organism; R65.21 - Severe sepsis with septic shock Status: Acute Assessment and Plan: Remains on norepinephrine. On broad-spectrum antibiotics. Management per critical care (4) Bradycardia: Code(s): R00.1 - Bradycardia, unspecified Status: Acute Assessment and Plan: Asymptomatic, chronic. This is indicative of underlying significant conduction system disease. (5) Persistent atrial fibrillation: Code(s): I48.19 - Other persistent atrial fibrillation Status: Acute Assessment and Plan: Atrial fibrillation is not new, chronic as well as his bradycardia. He has close follow-up with his support group manager at [facility] with discussion regarding lead loose pacemaker implantation in the future. -Continue to avoid AV miles blocking agents. -Remains on systemic anticoagulation with Eliquis. (6) Elevated troponin: Code(s): R77.8 - Other specified abnormalities of plasma proteins Status: Acute Assessment and Plan: Type 2 infarction minimal elevation given renal failure, history of CAD, hypertension, hypoxia not secondary to acute coronary syndrome and/or plaque rupture. (7) End-stage renal disease (ESRD): Code(s): N18.6 - End stage renal disease Status: Acute Assessment and Plan: Peritoneal dialysis per Nephrology. (8) Ischemic cardiomyopathy: Code(s): I25.5 - Ischemic cardiomyopathy Status: Acute Assessment and Plan: Stable, chronic heart failure with reduced ejection fraction reasonably compensated. Volume management with Nephrology and peritoneal dialysis. (9) Community acquired pneumonia: Code(s): J18.9 - Pneumonia, unspecified organism Status: Acute Assessment and Plan: Management per primary service with antibiotics as appropriate. Chest x-ray with worsening left-sided infiltrate. CT chest pending. (10) Chronic anticoagulation: Code(s): Z79.01 - FDC (current) use of anticoagulants Status: Acute Assessment and Plan: Continue Eliquis. Monitor for bleeding. (11) Status post fall: Code(s): Z91.81 - History of falling Status: Acute Assessment and Plan: PT OT eval. Management per primary service. Subjective Date/time seen: 10/14/21 13:34 Interval history: 65-year-old man with: History of ischemic cardiomyopathy, chronic atrial fibrillation LV systolic dysfunction and [id number] aortic valve stenosis. Patient admitted here with sepsis had a PEA arrest after which she has been placed in the ICU. Patient is still on ventilator support. No longer sedated. Date of service 10/13/21: No acute events overnight. He remains on vasop
--- NOTE | 2021-10-14 14:57 | PM.IMPN ---
Progress Note: A&P Assessment and Plan (1) Acute respiratory failure with hypoxia: Code(s): J96.01 - Acute respiratory failure with hypoxia Status: Acute Assessment and Plan: Acute Respiratory failure secondary to cardiac arrest, pneumonia, pulmonary edema, left pleural effusion. Intubated on 10/04/2021 during code blue - Continue full mechanical ventilation support to prevent hypoxemia/hypercarbia and end organ damage. - ABG and PCXR reviewed, Currently on 40% FiO2 and peep of 8 - Low tidal volume ventilation strategy to prevent volutrauma - Patient is already on anticoagulation but PE is another unlikely possibility. Unfortunately he is allergic to iodine contrast and heparin. He has end-stage renal disease and on PD. - Lower extremity Dopplers were negative for DVT. Unable to do CTA due to allergy to contrast. - Regarding anticoagulation heparin infusion and Lovenox are not an option. His claims that patient is allergic to heparin and I suspect patient may have a history of HIT although I do not see any documentation. For now, I will continue Eliquis but in case we need to switch to IV, I will switch him to argatroban. - on Fentanyl and versed for sedation, which has been turned off 10/07/2021: Chest CT IMPRESSION: 1. Small right and large left pleural effusions. 2. Acute fractures of left second-sixth ribs. 3. 3.8 x 1.7 cm anterior mediastinal mass, increased from 1.9 x 1.6 cm on 10/03/21. This finding may be a combination of hematoma and a pre-existing mass such as thymoma or lymphoma. 5. Small volume of ascites with peritoneal dialysis catheter. 6. Mild bilateral external iliac lymphadenopathy, likely reactive. Remains on ASV mode further management per credit and loan collections supervisor Vent management per credit and loan collections supervisor (2) End-stage renal disease on peritoneal dialysis: Code(s): N18.6 - End stage renal disease; Z99.2 - Dependence on renal dialysis Status: Acute Assessment and Plan: patient is being followed by Nephrology and is currently peritoneal dialysis. (3) Cardiac arrest: Code(s): I46.9 - Cardiac arrest, cause unspecified Status: Acute Assessment and Plan: Its possible patient's cardiac arrest secondary to junctional bradycardia or slow AFib Troponins, although mildly elevated in presence of end-stage renal disease, remained flat EKG showed AFib/ junctional bradycardia with heart rate in 40s - wean Dopamine to maintain HR 50-60s - he may need transvenous pacemaker - cardiology is following - continue Eliquis - head CT was negative for any hemorrhage 10/06/2021 Echo: - mild LVH; moderate-severe LV systolic dysfunction, ejection fraction about 30-35% - Moderate-severe aortic stenosis - Moderate pulmonary hypertension, RVSP 54 mmHg (4) Persistent atrial fibrillation: Code(s): I48.19 - Other persistent atrial fibrillation Status: Acute Assessment and Plan: currently in junctional bradycardia - see above - continue Eliquis (5) Bradycardia: Code(s): R00.1 - Bradycardia, unspecified Status: Chronic Assessment and Plan: see above (6) Pneumonia: Code(s): J18.9 - Pneumonia, unspecified organism Status: Acute Assessment and Plan: patient on the floor was being treated for community-acquired pneumonia antibiotics were broadenedafter intubation as possible patient may have aspirated continue vancomycin and Zosyn Cultures have been sent and are negative till now Procalcitonin level 6.4 10/08: leukocystosis persists Antibiotic reached per ICU (7) Insulin dependent diabetes mellitus: Status: Acute Assessment and Plan: Continue sliding scale insulin continue Lantus for ICU protocol (8) Mediastinal mass: Code(s): J98.59 - Other diseases of mediastinum, not elsewhere classified Status: Acute Assessment and Plan: CT chest showed 3.8 x 1.7 cm anterior mediastinal mass, increas
[2021-10-14 16:45] LABS: Glucose Point of Care 138 mg/dl (65-105)
[2021-10-14] MEDS: ROSUVASTATIN 10 MG TABLET PO (20:36)
[2021-10-14 20:38] LABS: Glucose Point of Care 246 mg/dl (65-105)
[2021-10-14 23:53] LABS: Glucose Point of Care 329 mg/dl (65-105)
[2021-10-15] VITALS (36 sets, daily range): BP systolic 87–115; BP diastolic 51–71; PULSE 65–77; RESP 12–26; TEMP 35.8–37.3; O2SAT 99–100
[2021-10-15] MEDS: NOREPINEPHRINE 8 MG/D5W 250 ML 8 MG/250 ML BAG 16.88 MG IV CONT ×2 (00:57→17:00)
[2021-10-15] MEDS: ALBUTEROL SULFATE NEB 2.5 MG/0.5 ML INH INHALATION ×3 (01:25→20:06)
[2021-10-15] MEDS: IPRATROPIUM BR 0.02% INH SOLN 0.5 MG/2.5 ML VIAL INHALATION ×3 (01:25→20:06)
[2021-10-15] MEDS: INSULIN ASPART (*BKC) 100 UNITS/ML SUB-Q ×2 (04:21→08:34)
[2021-10-15 04:22] LABS: Glucose Point of Care 308 mg/dl (65-105)
[2021-10-15 04:26] LABS: Hematocrit 27.7 % (42.0-52.0); Hemoglobin 9.3 g/dL (14.0-18.0); Mean Corpuscular HGB Conc 33.6 g/dl (32-36); Mean Corpuscular Hemoglobin 31.2 pg (26-34); Mean Platelet Volume 10.4 fl (7.4-10.4); Platelet Count Result 393 k/mm3 (150-375); Red Blood Count 2.98 M/mm3 (4.6-6.20); Red Cell Distribution Width 15.1 % (11.5-14.5); White Blood Count 15.8 K/mm3 (4.5-10.0)
[2021-10-15 04:38] LABS: Alanine Aminotransferase 80 U/L (4-50); Albumin Level 3.2 g/dL (3.5-5.1); Alkaline Phosphatase 330 U/L (38-126); Anion Gap 14 mmol/L (8-16); Aspartate Amino Transferase 83 U/L (17-59); Bilirubin,Total 0.8 mg/dL (0.2-1.3); Blood Urea Nitrogen 89 mg/dL (9-20); Calcium 8.6 mg/dL (8.4-10.2); Carbon Dioxide 27 mmol/L (22-30); Chloride 89 mmol/L (98-107); Estimated CRCL calculation 12 ml/min; Estimated Glomerular Filt Rate 8; Glucose 307 mg/dL (65-110); Magnesium 2.3 mg/dL (1.6-2.3); Phosphorus 4.3 mg/dL (2.5-4.5); Potassium 3.5 mmol/L (3.4-5.0); Sodium 130 mmol/L (137-145)
[2021-10-15 05:04] LABS: Alveolar/Arterial O2 Gradient 86.5 mmHg; Base Excess ABG -0.9 mEq/l (+/-2.0); Carboxyhemoglobin 0.3 % THb (0-2.0); Fractional Inspired Oxygen 30 %; HCO3 ABG 22.7 mEq/l (22.0-26.0); Methemoglobin ABG 0.1 %THb (0-1.5); Oxygen Content ABG 13.7 %vol (16.0-22.0); Oxygen Saturation ABG 97.2 % (95.0-100.0); Oxyhemoglobin 95.8 % THb (90.0-100.0); PCO2 ABG 33.4 mmHg (35.0-45.0); PO2 ABG 88.2 mmHg (80.0-100.0); PO2 FiO2 Ratio Arterial Blood 2.94 %; Reduced Hemoglobin 3.8 %THb (0-5.0); Total Hemoglobin 10.1 g/dL (12.0-18.0)
[2021-10-15 05:05] LABS: Device VENTILATOR; Modified Allen's Test Pass; Site Drawn LEFT RADIAL
[2021-10-15 05:06] LABS: Arterial Blood Gas PEEP 8 cmH2O; Arterial Blood Gas Vent Mode ASV
[2021-10-15] MEDS: METOCLOPRAMIDE HCL INJ 10 MG/2 ML VIAL IV PUSH (05:48)
[2021-10-15] MEDS: MIDODRINE HCL 10 MG TABLET FEED TUBE ×3 (05:48→21:07)
[2021-10-15] MEDS: CENTRAL LINE FLUSH 10 ML IV PUSH ×3 (05:52→21:08)
[2021-10-15] MEDS: DORNASE ALFA INH SOLN 1 MG/ML 2.5 ML AMP 2.5 MG INHALATION ×2 (07:54→20:06)
--- NOTE | 2021-10-15 08:10 | WPDINTPN ---
Progress Note: A&P Assessment and Plan (1) Acute respiratory failure with hypoxia: Code(s): J96.01 - Acute respiratory failure with hypoxia Status: Acute Assessment and Plan: Acute Respiratory failure secondary to cardiac arrest, pneumonia, pulmonary edema, left pleural effusion. Intubated on 10/04/2021 during code blue - Continue full mechanical ventilation support to prevent hypoxemia/hypercarbia and end organ damage. - ABG and PCXR reviewed, -patient has been on ASV mode with 35% FiO2 and 8 of PEEP. -off all sedation since 10/09 -10/07/2021: Sputum culture growing E coli, sensitive to cefepime, Zosyn, imipenem and gentamicin. - 10/11 -repeat culture still growing E coli ESBL which is sensitive to imipenem --10/14 DC Vanc, change Zosyn to imipenem -continue to try to remove as much fluid possible but PD -continues to have thick secretions from ET tube, on Pulmozyme and bronchodilators -I placed patient on PSV again this morning and he had low tidal volumes and high respiratory rate on 11/09. PSV changed to 8/8 -> 10/8 -> 15/8 for adequate RSBI. Continue as tolerated and wean if possible - Patient was intubated on 10/04 and today is day 12 on the ventilator. He has no where close to extubation and will likely need tracheostomy. Patient's family is agreeable to tracheostomy if needed as he has had that in the past. Will consult ENT 10/09/2021: CT chest, abdomen, pelvis without contrast 1. Small right and moderate left pleural effusions with collapse of the bilateral lower lobes with additional dependent compressive atelectasis. 2. Cardiomegaly. 3. Nonspecific 2.2 x 1.4 cm anterior mediastinal mass with differential including enlarged lymph node or thymoma. 4. Small volume of ascites with peritoneal dialysis catheter. (2) End-stage renal disease on peritoneal dialysis: Code(s): N18.6 - End stage renal disease; Z99.2 - Dependence on renal dialysis Status: Acute Assessment and Plan: patient is being followed by Nephrology and is currently peritoneal dialysis. -additional fluid being removed per Nephrology (3) Cardiac arrest: Code(s): I46.9 - Cardiac arrest, cause unspecified Status: Acute Assessment and Plan: Its possible patient's cardiac arrest secondary to junctional bradycardia or slow AFib Troponins, although mildly elevated in presence of end-stage renal disease, remained flat EKG showed AFib/ junctional bradycardia with heart rate in 40s -off dopamine 10/12 -continue Levophed to maintain mean arterial pressures > 65 mmHg - he may need transvenous pacemaker and I have discussed with Cardiology - cardiology is following - continue Eliquis - 10/09: Discussed with Cardiology, maintain dopamine, once he is more stable will wean dopamine and evaluate -repeat head CT on 10/09: No acute intracranial findings or interval change, mild atrophy and microangiopathy. -patient opens his eyes to name and follows simple commands in all extremities 10/06/2021 Echo: - mild LVH; moderate-severe LV systolic dysfunction, ejection fraction about 30-35% - Moderate-severe aortic stenosis - Moderate pulmonary hypertension, RVSP 54 mmHg (4) Persistent atrial fibrillation: Code(s): I48.19 - Other persistent atrial fibrillation Status: Acute Assessment and Plan: currently in junctional bradycardia - see above - continue Eliquis (5) Bradycardia: Code(s): R00.1 - Bradycardia, unspecified Status: Chronic Assessment and Plan: see above (6) Pneumonia: Code(s): J18.9 - Pneumonia, unspecified organism Status: Acute Assessment and Plan: patient on the floor was being treated for community-acquired pneumonia antibiotics were broadened yesterday after intubation as possible patient may have aspirated 10/03/2021 Blood cultures: Negative Procalcitonin level 6.4 10/08: leukocystosis persists -10/07/2021: Sputum culture -growing E coli, sensit
[2021-10-15 08:11] LABS: Glucose Point of Care 239 mg/dl (65-105)
[2021-10-15] MEDS: CALCIUM ACETATE 667 MG TABLET 1334 MG FEED TUBE ×3 (08:14→16:45)
[2021-10-15] MEDS: MINERAL OIL/WHITE PETROLATUM OINTMENT 1 APPLIC EACH EYE (08:14)
[2021-10-15] MEDS: DORZOLAMIDE/TIMOLOL OPHTH SOL 10 ML BOTTLE 1 DROP EACH EYE ×2 (08:14→20:18)
[2021-10-15] MEDS: BRIMONIDINE TARTRATE 0.2% OP SOLN 5 ML BTL 1 DROP EACH EYE ×2 (08:14→20:18)
[2021-10-15] MEDS: PANTOPRAZOLE SODIUM IV 40 MG VIAL IV PUSH (08:15)
[2021-10-15] MEDS: allopurinoL 100 MG TABLET PO (08:15)
[2021-10-15] MEDS: SOD HYPOCHLORITE 1/4 STRENGTH 473 ML 1 APPLIC TOPICAL (08:15)
[2021-10-15] MEDS: APIXABAN 5 MG TABLET PO (08:15)
[2021-10-15] MEDS: SILVER SULFADIAZINE 1% CR 50 GM JAR (*BKC) 1 APPLIC TOPICAL (08:16)
[2021-10-15] MEDS: MUPIROCIN 2% OINT 22 GM TUBE 1 APPLIC TOPICAL (08:16)
[2021-10-15] MEDS: polyethylene glycoL 3350 17 GM POWD.PACK PO (08:21)
[2021-10-15] MEDS: INSULIN GLARGINE (*BKC) 100 UNITS/ML 60 UNITS SUB-Q ×2 (08:33→20:30)
--- NOTE | 2021-10-15 08:38 | PM.PNNEP ---
Progress Note: A&P Assessment and Plan (1) End-stage renal disease (ESRD): Code(s): N18.6 - End stage renal disease Status: Acute Assessment and Plan: continue CCPD treatment while hospitalized goos ultrafiltration with current PD prescription (two 4.25% and one 2.5% diaenal overnight) follow trend of electrolytes, voume status, and clearance (2) Cardiac arrest: Code(s): I46.9 - Cardiac arrest, cause unspecified Status: Acute Assessment and Plan: etiology not clear Cardiology following with recommendations noted he follows some commands continue supportive care (3) Acute respiratory failure with hypoxia: Code(s): J96.01 - Acute respiratory failure with hypoxia Status: Acute Assessment and Plan: secondary to cardiac arrest and pneumonia continue ventilator support completed antibiotic therapy (4) Hyponatremia: Code(s): E87.1 - Hypo-osmolality and hyponatremia Status: Acute Assessment and Plan: still low but stable follow trend (5) Hypotension: Code(s): I95.9 - Hypotension, unspecified Status: Acute Assessment and Plan: blood pressure is low remains on levophed - wean as tolerated (6) Bradycardia: Code(s): R00.1 - Bradycardia, unspecified Status: Chronic Assessment and Plan: apparently a chronic issue at baseline Cardiology following (7) Anemia: Code(s): D64.9 - Anemia, unspecified Status: Chronic Assessment and Plan: due to ESRD and possibly acute illness on Epogen follow H/H Will continue to follow. Subjective Date/time seen: 10/15/21 08:38 Tolerated CCPD treatment overnight without any issues or problems (seen on PD around 8:00AM); continuing to push ultrafiltration as tolerated with peritoneal dialysis (total UF last night was 2451cc); remains on mechanical ventilator support as well as as pressor therapy (levophed); no real significant change at this time. Exam Narrative: General: WD/WN male intubatedand on mechanical ventilation Heart: normal S1 and S2; no rub Lungs: coarse breath sounds Abdomen: obese but soft, nontender, nondistended, positive bowel sounds; PD catheter in place Extremities: 2+ chronic bilateral edema Skin: chronic venous stasis changes unchanged Objective Data Vital Signs Vital Signs: Vital Signs Temp Pulse Resp BP Pulse Ox 10/15/21 08:30 74 10/15/21 08:05 37.3 C 10/15/21 08:00 73 14 107/61 100 10/15/21 07:59 72 18 10/15/21 07:54 75 100 10/15/21 07:50 74 18 10/15/21 06:00 74 26 H 115/65 100 10/15/21 04:35 68 100 10/15/21 04:00 36.0 C L 73 20 111/70 100 10/15/21 02:00 67 14 107/62 100 10/15/21 01:31 69 20 10/15/21 01:29 72 100 10/15/21 01:26 73 18 10/15/21 00:57 69 100/62 10/15/21 00:00 35.8 C L 70 17 101/64 100 10/14/21 22:20 68 100 10/14/21 22:00 69 23 H 109/64 100 10/14/21 20:00 35.7 C L 66 17 94/54 L 100 10/14/21 19:28 70 24 H 10/14/21 19:25 70 93 10/14/21 19:19 72 26 H 10/14/21 18:36 70 106/58 L 10/14/21 18:01 74 23 H 93/53 L 100 10/14/21 18:00 72 93/53 L Intake/Output Intake/Output: Intake & Output 10/12/21 10/13/21 10/14/21 10/15/21 23:59 23:59 23:59 23:59 Intake Total 1914 2873 2646.0 2662.3 Output Total 2489 1653 3048 1 Balance -575 1220 -402.0 2661.3 Meds/Results Medications: Active Medications Generic Name Dose Route Start Last Admin Trade Name Andreiq PRN Reason Stop Dose Admin Albuterol 2.5 mg 10/13/21 14:00 10/15/21 07:54 Albuterol Sulfate Neb 2.5 Mg/0.5 Ml Inh INHALATION 2.5 mg Q6HRT [facility] Administration Allopurinol 100 mg 10/04/21 08:00 10/15/21 08:15 Allopurinol 100 Mg Tablet PO 100 mg DAILY@0800 [facility] Administration Apixaban 5 mg 10/05/21 12:00 10/15/21 08:15 Apixaban 5 Mg Tablet PO
--- NOTE | 2021-10-15 08:38 | P.PNNP_ITS ---
Progress Note: A&P Assessment and Plan (1) End-stage renal disease (ESRD): Code(s): N18.6 - End stage renal disease Status: Acute Assessment and Plan: * continue CCPD treatment while hospitalized * goos ultrafiltration with current PD prescription (two 4.25% and one 2.5% diaenal overnight) * follow trend of electrolytes, voume status, and clearance (2) Cardiac arrest: Code(s): I46.9 - Cardiac arrest, cause unspecified Status: Acute Assessment and Plan: * etiology not clear * Cardiology following with recommendations noted * he follows some commands * continue supportive care (3) Acute respiratory failure with hypoxia: Code(s): J96.01 - Acute respiratory failure with hypoxia Status: Acute Assessment and Plan: * secondary to cardiac arrest and pneumonia * continue ventilator support * completed antibiotic therapy (4) Hyponatremia: Code(s): E87.1 - Hypo-osmolality and hyponatremia Status: Acute Assessment and Plan: * still low but stable * follow trend (5) Hypotension: Code(s): I95.9 - Hypotension, unspecified Status: Acute Assessment and Plan: * blood pressure is low * remains on levophed - wean as tolerated (6) Bradycardia: Code(s): R00.1 - Bradycardia, unspecified Status: Chronic Assessment and Plan: * apparently a chronic issue at baseline * Cardiology following (7) Anemia: Code(s): D64.9 - Anemia, unspecified Status: Chronic Assessment and Plan: * due to ESRD and possibly acute illness * on Epogen * follow H/H Will continue to follow. Subjective Date/time seen: 10/15/21 08:38 Tolerated CCPD treatment overnight without any issues or problems (seen on PD around 8:00AM); continuing to push ultrafiltration as tolerated with peritoneal dialysis (total UF last night was 2451cc); remains on mechanical ventilator support as well as as pressor therapy (levophed); no real significant change at this time. Exam Narrative: General: WD/WN male intubatedand on mechanical ventilation Heart: normal S1 and S2; no rub Lungs: coarse breath sounds Abdomen: obese but soft, nontender, nondistended, positive bowel sounds; PD catheter in place Extremities: 2+ chronic bilateral edema Skin: chronic venous stasis changes unchanged Objective Data Vital Signs Vital Signs: Vital Signs Temp Pulse Resp BP Pulse Ox 10/15/21 08:30 74 10/15/21 08:05 37.3 C 10/15/21 08:00 73 14 107/61 100 10/15/21 07:59 72 18 10/15/21 07:54 75 100 10/15/21 07:50 74 18 10/15/21 06:00 74 26 H 115/65 100 10/15/21 04:35 68 100 10/15/21 04:00 36.0 C L 73 20 111/70 100 10/15/21 02:00 67 14 107/62 100 10/15/21 01:31 69 20 10/15/21 01:29 72 100 10/15/21 01:26 73 18 10/15/21 00:57 69 100/62 10/15/21 00:00 35.8 C L 70 17 101/64 100 10/14/21 22:20 68 100 10/14/21 22:00 69 23 H 109/64 100 10/14/21 20:00 35.7 C L 66 17 94/54 L 100 10/14/21 19:28 70 24 H 10/14/21 19:25 70 93 10/14/21 19:19 72 26 H 10/14/21 18:36 70 106/58 L 10/14/21 18:01 74 23 H 93/53 L 100
--- NOTE | 2021-10-15 10:01 | PM.IMPN ---
Progress Note: A&P Additional Plan 65-year-old gentleman who presented to emergency room after tripping over the last step of his stairs and fell and struck his knees and his head. Upon evaluation in emergency room patient was noted to be bradycardic and hyperkalemia Patient had episodes of bradycardia patient also has recent history of peritonitis completed course of antibiotics and still has lower extremity ulcer.Patient has history of AICD which was removed due to infection, per patient there was plan to for possible inserting another AICD in the future.On 10/04/2021 patient had episode of cardiac arrest/PE a was found to have junctional bradycardia patient required CPR intubation and admission to the ICU. (1) Acute respiratory failure with hypoxia: Acute Respiratory failure secondary to cardiac arrest, pneumonia, pulmonary edema, left pleural effusion. Intubated on 10/04/2021 during code blue - Continue full mechanical ventilation support to prevent hypoxemia/hypercarbia and end organ damage. Vent management as per flux plant operator - Patient is already on anticoagulation but PE is another unlikely possibility. Unfortunately he is allergic to iodine contrast and heparin. He has end-stage renal disease and on PD. - Lower extremity Dopplers were negative for DVT. Unable to do CTA due to allergy to contrast. - Regarding anticoagulation heparin infusion and Lovenox are not an option. His claims that patient is allergic to heparin and I suspect patient may have a history of HIT although I do not see any documentation. For now, I will continue Eliquis Likely plan for ENT/GI consult for trach/PEG due to prolonged dependency on vent, defer to flux plant operator for final decision (2) End-stage renal disease on peritoneal dialysis: patient is being followed by Nephrology and is currently peritoneal dialysis. (3) Cardiac arrest: Its possible patient's cardiac arrest secondary to junctional bradycardia or slow AFib Troponins, although mildly elevated in presence of end-stage renal disease, remained flat EKG showed AFib/ junctional bradycardia with heart rate in 40s - off dopamine, c/w norepinephrine - he may need transvenous pacemaker - cardiology is following - continue Eliquis - head CT was negative for any hemorrhage (4) Persistent atrial fibrillation: currently in junctional bradycardia - see above - continue Eliquis (6) Pneumonia: patient on the floor was being treated for community-acquired pneumonia antibiotics were broadened after intubation as possible patient may have aspirated continue with imipenam Sputum culture shows E.coli Persistent leucocytosis Antibiotic reached per ICU (7) Insulin dependent diabetes mellitus: Continue sliding scale insulin continue Lantus for ICU protocol (8) Mediastinal mass: CT chest showed 3.8 x 1.7 cm anterior mediastinal mass, increased from 1.9 x 1.6 cm on 10/03/21. This finding may be a combination of hematoma and a pre-existing mass such as thymoma or lymphoma. He did get CPR with rib fractures which may lead to small hematoma. He has a stable hemoglobin. 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
--- NOTE | 2021-10-15 11:45 | PCFNICU ---
ICU Rounding Note: Pt current nutrition is Vital AF 1.2 at 70 ml/hr over 22 hours. Last recorded weight is 129.9 kg, up from 122.5 kg on admit. Bowel Motility:+Bm reported 10/15 Labs Reviewed:Glu 307, GFR 8, Na 130, Alb 3.2,Hgb 9.3,Hct 27.7 Meds Noted:Levophed, Miralax, Protonix, PhosLo, Crestor, Zosyn, Cymbalta, Renvela, Dulcolax Suppository, Eliquis, Lantus, Novolog Skin:right foot/left lower leg-venous status Additional Notes: Patient remains on mechanical vent and tube feedings of Vital AF 1.2 at 70 ml/hr over 22 hours. Tolerating per nursing. 30 ml free water flush q 4 hours. ENT consult/GI consult for Trach/PEG. Agree with diet orders at this time. Following daily in ICU rounds. Will be reassessing every Wednesday and Wednesday.
--- NOTE | 2021-10-15 11:54 | PM.PNCARD ---
Progress Note: A&P Assessment and Plan (1) Cardiac arrest: Code(s): I46.9 - Cardiac arrest, cause unspecified Status: Acute Assessment and Plan: There is no clear evidence for association with his bradycardia as a cause or contributor. Most likely secondary to hypoxia and or sepsis/septic shock with hypotension. The significance of the fact that he was on PD at the time also must be considered. At this time, most likely explanation respiratory decompensation, worsening pneumonia sepsis/septic shock. He has been weaned off of dopamine at this point. His blood pressure remains stable, he is still on Levophed that is being titrated. Heart rate is stable in the 60s. If he becomes significantly bradycardic with hemodynamic instability would recommend restarting the dopamine drip. No plan or indication for transvenous or permanent pacer at this time. Patient is critically ill, prognosis guarded. (2) Acute respiratory failure with hypoxia: Code(s): J96.01 - Acute respiratory failure with hypoxia Status: Acute Assessment and Plan: Remains intubated on mechanical ventilatory support. On IV antibiotics. Per Critical Care. (3) Septic shock: Code(s): A41.9 - Sepsis, unspecified organism; R65.21 - Severe sepsis with septic shock Status: Acute Assessment and Plan: Remains on norepinephrine. On broad-spectrum antibiotics. Management per critical care (4) Bradycardia: Code(s): R00.1 - Bradycardia, unspecified Status: Acute Assessment and Plan: Asymptomatic, chronic. This is indicative of underlying significant conduction system disease. (5) Persistent atrial fibrillation: Code(s): I48.19 - Other persistent atrial fibrillation Status: Acute Assessment and Plan: Atrial fibrillation is not new, chronic as well as his bradycardia. He has close follow-up with his section beamer at [facility] with discussion regarding lead loose pacemaker implantation in the future. -Continue to avoid AV miles blocking agents. -Remains on systemic anticoagulation with Eliquis. (6) Elevated troponin: Code(s): R77.8 - Other specified abnormalities of plasma proteins Status: Acute Assessment and Plan: Type 2 infarction minimal elevation given renal failure, history of CAD, hypertension, hypoxia not secondary to acute coronary syndrome and/or plaque rupture. (7) End-stage renal disease (ESRD): Code(s): N18.6 - End stage renal disease Status: Acute Assessment and Plan: Peritoneal dialysis per Nephrology. (8) Ischemic cardiomyopathy: Code(s): I25.5 - Ischemic cardiomyopathy Status: Acute Assessment and Plan: Stable, chronic heart failure with reduced ejection fraction reasonably compensated. Volume management with Nephrology and peritoneal dialysis. (9) Community acquired pneumonia: Code(s): J18.9 - Pneumonia, unspecified organism Status: Acute Assessment and Plan: Management per primary service with antibiotics as appropriate. Chest x-ray with worsening left-sided infiltrate. CT chest pending. (10) Chronic anticoagulation: Code(s): Z79.01 - care home (current) use of anticoagulants Status: Acute Assessment and Plan: Continue Eliquis. Monitor for bleeding. (11) Status post fall: Code(s): Z91.81 - History of falling Status: Acute Assessment and Plan: PT OT eval. Management per primary service. Subjective Date/time seen: 10/15/21 11:54 Interval history: 65-year-old man with: History of ischemic cardiomyopathy, chronic atrial fibrillation LV systolic dysfunction and [id number] aortic valve stenosis. Patient admitted here with sepsis had a PEA arrest after which she has been placed in the ICU. Patient is still on ventilator support. No longer sedated. Date of service 10/13/21: No acute events overnight. He remains on vasop
[2021-10-15 12:40] LABS: Glucose Point of Care 142 mg/dl (65-105)
--- NOTE | 2021-10-15 15:13 | WPDGICN ---
Assessment and Plan Assessment and plan (1) Ventilator dependence: Code(s): Z99.11 - Dependence on respirator [ventilator] status Status: Acute Assessment and Plan: Patient is ventilator dependent after cardiopulmonary arrest. He will require PEG tube for nutritional support. Plan is to anticipate this in 2 days. He will need to hold the Eliquis for 2 days prior to PEG tube will anticipate PEG tube placement on Wednesday and hold Eliquis for now until that time. (2) Mediastinal mass: Code(s): J98.59 - Other diseases of mediastinum, not elsewhere classified Status: Acute (3) End-stage renal disease on peritoneal dialysis: Code(s): N18.6 - End stage renal disease; Z99.2 - Dependence on renal dialysis Status: Acute (4) Cardiac arrest: Code(s): I46.9 - Cardiac arrest, cause unspecified Status: Acute (5) Persistent atrial fibrillation: Code(s): I48.19 - Other persistent atrial fibrillation Status: Acute (6) Community acquired pneumonia: Code(s): J18.9 - Pneumonia, unspecified organism Status: Acute (7) Obesity (BMI 30.0-34.9): Code(s): E66.9 - Obesity, unspecified Status: Acute (8) Atrial fibrillation: Qualifiers: Atrial fibrillation type: unspecified chronic Qualified Code(s): I48.20 - Chronic atrial fibrillation, unspecified Code(s): I48.91 - Unspecified atrial fibrillation Status: Acute GI Consult Note Consult date/time: 10/15/21 15:13 HPI: Rl Ayala Patricia Saez. is a 65 year old male I am asked to see at the request of the print binding and finishing worker for PEG tube placement. Patient admitted the hospital after cardiopulmonary arrest on 10/04/2021. He remains intubated since that time. A PEG tube is requested as the appears to be ventilator dependent. Patient apparently fell at home prior to this episode. He has been maintained on Eliquis for some time apparently because of atrial fibrillation. He has an underlying history of insulin-dependent diabetes mellitus and during hospital stay is been identified as having pneumonia. He has end-stage renal disease for which she is on peritoneal dialysis. He has coronary artery disease with a history of stent placement. Occur currently is on the ventilator and is unresponsive unable to add any useful history. Currently maintained on Eliquis anticoagulation. During hospital stay a mediastinal mass is been identified and is uncertain whether this represents a hematoma or something more ominous. Review of Systems Review of Systems: ROS unobtainable: Yes unobtainable due to endotracheal tube and unobtainable due to medical condition PMFSH Past Medical History Medical History Acute kidney injury Amputation toe 2nd toe on the right Charcot's joint of foot Chronic anemia Chronic wound of extremity Coronary artery disease End-stage renal disease on hemodialysis Glaucoma Hyperlipidemia Hypertension Insulin dependent diabetes mellitus Ischemic cardiomyopathy Patient reports recent ejection fraction of about 35%. Osteoarthritis Paroxysmal atrial fibrillation Ventricular tachyarrhythmia Surgical History Surgical History History of bilateral knee arthroplasty History of cardiac catheterization (~2005) With history of stent to the LAD. History of implantable cardioverter-defibrillator (ICD) insertion With subsequent removal due to pocket infection. History of orthopedic surgery Right arm ORIF with hardware. History of tonsillectomy History of tracheostomy After lengthy hospitalization in 2018 for sepsis due to cellulitis. S/P dialysis catheter insertion Right chest Status post debridement Multiple debridements of bilateral lower leg wounds over the years. Family History Family History Mother Diabetes mellitus Acute m
[2021-10-15 16:57] LABS: Glucose Point of Care 104 mg/dl (65-105)
[2021-10-15] MEDS: EPOETIN ALFA-EPBX 10,000 UNITS/ML VIAL 10000 UNITS SUB-Q (17:02)
[2021-10-15] MEDS: ROSUVASTATIN 10 MG TABLET PO (20:18)
[2021-10-15 20:34] LABS: Glucose Point of Care 111 mg/dl (65-105)
[2021-10-16] VITALS (45 sets, daily range): BP systolic 78–113; BP diastolic 54–71; PULSE 66–81; RESP 13–29; TEMP 35.7–37.3; O2SAT 90–100
[2021-10-16] MEDS: INSULIN ASPART (*BKC) 100 UNITS/ML SUB-Q ×4 (00:23→23:43)
[2021-10-16 00:41] LABS: Glucose Point of Care 204 mg/dl (65-105)
[2021-10-16] MEDS: ALBUTEROL SULFATE NEB 2.5 MG/0.5 ML INH INHALATION ×4 (02:41→20:14)
[2021-10-16] MEDS: IPRATROPIUM BR 0.02% INH SOLN 0.5 MG/2.5 ML VIAL INHALATION ×4 (02:41→20:14)
[2021-10-16 04:29] LABS: Glucose Point of Care 227 mg/dl (65-105)
[2021-10-16 04:30] LABS: Hematocrit 27.9 % (42.0-52.0); Hemoglobin 9.3 g/dL (14.0-18.0); Mean Corpuscular HGB Conc 33.3 g/dl (32-36); Mean Corpuscular Hemoglobin 31.3 pg (26-34); Mean Corpuscular Volume 93.9 fl (80-100); Platelet Count Result 463 k/mm3 (150-375); Red Blood Count 2.97 M/mm3 (4.6-6.20); Red Cell Distribution Width 15.2 % (11.5-14.5); White Blood Count 17.9 K/mm3 (4.5-10.0)
[2021-10-16 04:53] LABS: Alanine Aminotransferase 91 U/L (4-50); Albumin Level 3.5 g/dL (3.5-5.1); Alkaline Phosphatase 354 U/L (38-126); Anion Gap 17 mmol/L (8-16); Aspartate Amino Transferase 88 U/L (17-59); Bilirubin,Total 0.7 mg/dL (0.2-1.3); Blood Urea Nitrogen 98 mg/dL (9-20); Calcium 8.9 mg/dL (8.4-10.2); Carbon Dioxide 25 mmol/L (22-30); Chloride 89 mmol/L (98-107); Estimated CRCL calculation 12 ml/min; Estimated Glomerular Filt Rate 8; Glucose 222 mg/dL (65-110); Magnesium 2.5 mg/dL (1.6-2.3); Sodium 131 mmol/L (137-145)
[2021-10-16] MEDS: MIDODRINE HCL 10 MG TABLET FEED TUBE ×3 (05:10→21:20)
[2021-10-16 05:11] LABS: Alveolar/Arterial O2 Gradient 74.9 mmHg; Base Excess ABG -0.7 mEq/l (+/-2.0); Carboxyhemoglobin 0.3 % THb (0-2.0); Fractional Inspired Oxygen 30 %; HCO3 ABG 23.2 mEq/l (22.0-26.0); Methemoglobin ABG 0.3 %THb (0-1.5); Oxygen Content ABG 13.7 %vol (16.0-22.0); Oxygen Saturation ABG 97.6 % (95.0-100.0); Oxyhemoglobin 96.4 % THb (90.0-100.0); PCO2 ABG 35.3 mmHg (35.0-45.0); PO2 ABG 97.5 mmHg (80.0-100.0); PO2 FiO2 Ratio Arterial Blood 3.25 %; pH ABG 7.435 (7.350-7.450)
[2021-10-16 05:12] LABS: Arterial Blood Gas PEEP 8 cmH2O; Arterial Blood Gas Vent Mode ASV; Device VENTILATOR; Modified Allen's Test Pass; Site Drawn RIGHT RADIAL
[2021-10-16] MEDS: CENTRAL LINE FLUSH 10 ML IV PUSH ×3 (05:19→21:22)
--- NOTE | 2021-10-16 05:51 | PC.NURSE ---
Labs were drawn while patient was getting PD. I called the lab and informed them and will redraw them post treatment. Setup Operator is aware.
[2021-10-16] MEDS: NOREPINEPHRINE 8 MG/D5W 250 ML 8 MG/250 ML BAG 13.13 MG IV CONT (07:55)
[2021-10-16 08:20] LABS: Alanine Aminotransferase 86 U/L (4-50); Albumin Level 3.4 g/dL (3.5-5.1); Alkaline Phosphatase 346 U/L (38-126); Anion Gap 17 mmol/L (8-16); Aspartate Amino Transferase 74 U/L (17-59); Bilirubin,Total 0.7 mg/dL (0.2-1.3); Blood Urea Nitrogen 92 mg/dL (9-20); Calcium 8.8 mg/dL (8.4-10.2); Carbon Dioxide 25 mmol/L (22-30); Chloride 89 mmol/L (98-107); Estimated CRCL calculation 12 ml/min; Estimated Glomerular Filt Rate 8; Glucose 221 mg/dL (65-110); Potassium 3.7 mmol/L (3.4-5.0); Sodium 131 mmol/L (137-145)
[2021-10-16] MEDS: BRIMONIDINE TARTRATE 0.2% OP SOLN 5 ML BTL 1 DROP EACH EYE ×2 (08:22→20:33)
[2021-10-16] MEDS: DORZOLAMIDE/TIMOLOL OPHTH SOL 10 ML BOTTLE 1 DROP EACH EYE ×2 (08:22→20:33)
[2021-10-16] MEDS: PANTOPRAZOLE SODIUM IV 40 MG VIAL IV PUSH (08:22)
[2021-10-16] MEDS: CALCIUM ACETATE 667 MG TABLET 1334 MG FEED TUBE ×3 (08:23→16:00)
[2021-10-16] MEDS: allopurinoL 100 MG TABLET PO (08:23)
[2021-10-16] MEDS: MINERAL OIL/WHITE PETROLATUM OINTMENT 1 APPLIC EACH EYE (08:23)
[2021-10-16] MEDS: MUPIROCIN 2% OINT 22 GM TUBE 1 APPLIC TOPICAL (08:29)
[2021-10-16] MEDS: SOD HYPOCHLORITE 1/4 STRENGTH 473 ML 1 APPLIC TOPICAL (08:29)
[2021-10-16] MEDS: SILVER SULFADIAZINE 1% CR 50 GM JAR (*BKC) 1 APPLIC TOPICAL (08:30)
[2021-10-16] MEDS: DORNASE ALFA INH SOLN 1 MG/ML 2.5 ML AMP 2.5 MG INHALATION ×2 (08:37→20:14)
[2021-10-16] MEDS: INSULIN GLARGINE (*BKC) 100 UNITS/ML 60 UNITS SUB-Q ×2 (08:49→20:34)
[2021-10-16 08:56] LABS: Vancomycin Random 23.8 ug/mL (10-20)
--- NOTE | 2021-10-16 09:01 | PM.PNCARD ---
Progress Note: A&P Assessment and Plan (1) Cardiac arrest: Code(s): I46.9 - Cardiac arrest, cause unspecified Status: Acute Assessment and Plan: There is no clear evidence for association with his bradycardia as a cause or contributor. Most likely secondary to hypoxia and or sepsis/septic shock with hypotension. The significance of the fact that he was on PD at the time also must be considered. At this time, most likely explanation respiratory decompensation, worsening pneumonia sepsis/septic shock. He has been weaned off of dopamine at this point. His blood pressure remains stable, he is still on Levophed that is being titrated. Heart rate is stable in the 60s. If he becomes significantly bradycardic with hemodynamic instability would recommend restarting the dopamine drip. No plan or indication for transvenous or permanent pacer at this time. Patient is critically ill, prognosis guarded. (2) Acute respiratory failure with hypoxia: Code(s): J96.01 - Acute respiratory failure with hypoxia Status: Acute Assessment and Plan: Remains intubated on mechanical ventilatory support. On IV antibiotics. Per Critical Care. (3) Septic shock: Code(s): A41.9 - Sepsis, unspecified organism; R65.21 - Severe sepsis with septic shock Status: Acute Assessment and Plan: Remains on norepinephrine. On broad-spectrum antibiotics. Management per critical care (4) Bradycardia: Code(s): R00.1 - Bradycardia, unspecified Status: Acute Assessment and Plan: Asymptomatic, chronic. This is indicative of underlying significant conduction system disease. (5) Persistent atrial fibrillation: Code(s): I48.19 - Other persistent atrial fibrillation Status: Acute Assessment and Plan: Atrial fibrillation is not new, chronic as well as his bradycardia. 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 -Continue to avoid AV miles blocking agents. -Remains on systemic anticoagulation with Eliquis albeit on hold for trach and PEG tomorrow (6) Elevated troponin: Code(s): R77.8 - Other specified abnormalities of plasma proteins Status: Acute Assessment and Plan: Type 2 infarction minimal elevation given renal failure, history of CAD, hypertension, hypoxia not secondary to acute coronary syndrome and/or plaque rupture. (7) End-stage renal disease (ESRD): Code(s): N18.6 - End stage renal disease Status: Acute Assessment and Plan: Peritoneal dialysis per Nephrology. (8) Ischemic cardiomyopathy: Code(s): I25.5 - Ischemic cardiomyopathy Status: Acute Assessment and Plan: Stable, chronic heart failure with reduced ejection fraction reasonably compensated. Volume management with Nephrology and peritoneal dialysis. (9) Community acquired pneumonia: Code(s): J18.9 - Pneumonia, unspecified organism Status: Acute Assessment and Plan: Management per primary service with antibiotics as appropriate. Chest x-ray with worsening left-sided infiltrate. CT chest pending. (10) Chronic anticoagulation: Code(s): Z79.01 - skilled nursing (current) use of anticoagulants Status: Acute Assessment and Plan: Continue Eliquis. Monitor for bleeding. (11) Status post fall: Code(s): Z91.81 - History of falling Status: Acute Assessment and Plan: PT OT eval. Management per primary service. Subjective Date/time seen: 10/16/21 09:01 Interval history: 65-year-old man with: History of ischemic cardiomyopathy, chronic atrial fibrillation LV systolic dysfunction and [id number] aortic valve stenosis. Patient admitted here with sepsis had a PEA arrest after which she has been placed in the ICU. Patient is still on ventilator support. No longer sedated. Date of service 10/13/21: No acu
[2021-10-16 09:04] LABS: Glucose Point of Care 244 mg/dl (65-105)
--- NOTE | 2021-10-16 09:21 | WPDINTPN ---
Progress Note: A&P Assessment and Plan (1) Acute respiratory failure with hypoxia: Code(s): J96.01 - Acute respiratory failure with hypoxia Status: Acute Assessment and Plan: Acute Respiratory failure secondary to cardiac arrest, pneumonia, pulmonary edema, left pleural effusion. Intubated on 10/04/2021 during code blue - Continue full mechanical ventilation support to prevent hypoxemia/hypercarbia and end organ damage. - ABG and PCXR reviewed, -patient has been on ASV mode with 35% FiO2 and 8 of PEEP. -off all sedation since 10/09 -10/07/2021: Sputum culture growing E coli, sensitive to cefepime, Zosyn, imipenem and gentamicin. - 10/11 -repeat culture still growing E coli ESBL which is sensitive to imipenem --10/14 DC Vanc, changed Zosyn to imipenem -continue to try to remove as much fluid possible but PD -continues to have thick secretions from ET tube, on Pulmozyme and bronchodilators -patient tolerated only few hours of PSV 15/8 yesterday. Will try again today - Patient was intubated on 10/04 and today is day 13 on the ventilator. ENT has been consulted and patient is scheduled for tracheostomy tomorrow 10/09/2021: CT chest, abdomen, pelvis without contrast 1. Small right and moderate left pleural effusions with collapse of the bilateral lower lobes with additional dependent compressive atelectasis. 2. Cardiomegaly. 3. Nonspecific 2.2 x 1.4 cm anterior mediastinal mass with differential including enlarged lymph node or thymoma. 4. Small volume of ascites with peritoneal dialysis catheter. (2) End-stage renal disease on peritoneal dialysis: Code(s): N18.6 - End stage renal disease; Z99.2 - Dependence on renal dialysis Status: Acute Assessment and Plan: patient is being followed by Nephrology and is currently peritoneal dialysis. -additional fluid being removed per Nephrology (3) Cardiac arrest: Code(s): I46.9 - Cardiac arrest, cause unspecified Status: Acute Assessment and Plan: Its possible patient's cardiac arrest secondary to junctional bradycardia or slow AFib Troponins, although mildly elevated in presence of end-stage renal disease, remained flat EKG showed AFib/ junctional bradycardia with heart rate in 40s -off dopamine 10/12 -continue Levophed to maintain mean arterial pressures > 65 mmHg - he may need transvenous pacemaker and I have discussed with Cardiology - cardiology is following - continue Eliquis - 10/09: Discussed with Cardiology, maintain dopamine, once he is more stable will wean dopamine and evaluate -repeat head CT on 10/09: No acute intracranial findings or interval change, mild atrophy and microangiopathy. -patient opens his eyes to name and follows simple commands in all extremities 10/06/2021 Echo: - mild LVH; moderate-severe LV systolic dysfunction, ejection fraction about 30-35% - Moderate-severe aortic stenosis - Moderate pulmonary hypertension, RVSP 54 mmHg (4) Persistent atrial fibrillation: Code(s): I48.19 - Other persistent atrial fibrillation Status: Acute Assessment and Plan: currently in junctional bradycardia - see above Eliquis is on hold for trach and PEG tomorrow (5) Bradycardia: Code(s): R00.1 - Bradycardia, unspecified Status: Chronic Assessment and Plan: see above (6) Pneumonia: Code(s): J18.9 - Pneumonia, unspecified organism Status: Acute Assessment and Plan: patient on the floor was being treated for community-acquired pneumonia antibiotics were broadened yesterday after intubation as possible patient may have aspirated 10/03/2021 Blood cultures: Negative Procalcitonin level 6.4 10/08: leukocystosis persists -10/07/2021: Sputum culture -growing E coli, sensitive to cefepime, Zosyn, imipenem and gentamicin - 10/11 -repeat culture still growing E coli ESBL sensitive to imipenem -10/14 DC vanc, changed Zosyn to imipenem (7) Insulin dependent diabetes mellitus
--- NOTE | 2021-10-16 10:04 | P.PNNP_ITS ---
Progress Note: A&P Assessment and Plan (1) End-stage renal disease (ESRD): Code(s): N18.6 - End stage renal disease Status: Acute Assessment and Plan: * continue CCPD treatment while hospitalized * good ultrafiltration with current PD prescription (two 4.25% and one 2.5% diaenal overnight) * Volume status improving. * Electrolytes doing okay. (2) Cardiac arrest: Code(s): I46.9 - Cardiac arrest, cause unspecified Status: Acute Assessment and Plan: * etiology not clear * Cardiology following with recommendations noted * he follows some commands * continue supportive care (3) Acute respiratory failure with hypoxia: Code(s): J96.01 - Acute respiratory failure with hypoxia Status: Acute Assessment and Plan: * secondary to cardiac arrest and pneumonia * Minute volume is just above 10. FiO2 40%. * continue ventilator support * completed antibiotic therapy (4) Hyponatremia: Code(s): E87.1 - Hypo-osmolality and hyponatremia Status: Acute Assessment and Plan: * still low but stable, varying around 130. (5) Hypotension: Code(s): I95.9 - Hypotension, unspecified Status: Acute Assessment and Plan: * blood pressure is low * remains on levophed. Current dose is 7 (6) Bradycardia: Code(s): R00.1 - Bradycardia, unspecified Status: Chronic Assessment and Plan: * apparently a chronic issue at baseline * Heart rate okay off dopamine (7) Anemia: Code(s): D64.9 - Anemia, unspecified Status: Chronic Assessment and Plan: * due to ESRD and possibly acute illness * on Epogen * follow H/H Will continue to follow. Subjective Date/time seen: 10/16/21 10:04 Interval history: The patient is being seen for end-stage renal disease. The patient is on the ventilator. He is sedated. Patient had 2606cc of fluid removed overnight. Exam Narrative: General: WD/WN male intubatedand on mechanical ventilation Heart: normal S1 and S2; no rub or gallop Lungs: coarse breath sounds Abdomen: obese but soft, nontender, nondistended, positive bowel sounds; PD catheter in place Extremities: 1+ chronic bilateral edema Skin: chronic venous stasis changes unchanged Objective Data Vital Signs Vital Signs: Vital Signs - 24 hr 10/15/21 10:54 10/15/21 12:00 10/15/21 14:00 Temperature 37.2 C Pulse Rate 74 71 70 Respiratory Rate 26 H 12 Blood Pressure 99/62 L 98/60 L Pulse Oximetry 100 100 100 10/15/21 15:10 10/15/21 15:24 10/15/21 15:25 Temperature Pulse Rate 77 76 77 Respiratory Rate 18 18 Blood Pressure Pulse Oximetry 100 10/15/21 16:00 10/15/21 17:00 10/15/21 17:35 Temperature 37.3 C Pulse Rate 72 72 76 Respiratory Rate 22 H Blood Pressure 92/56 L 92/56 L Pulse Oximetry 100 100 10/15/21 17:59 10/15/21 18:00 10/15/21 20:00 Temperature 35.9 C L Pulse Rate 74 73 75 Respiratory Rate 19 20 Blood Pressure 94/61 L 99/59 L Pulse Oximetry 100 100 10/15/21 20:07 10/15/21 20:08 10/15/21 20:25 Temperature Pulse Rate 76 74 75
--- NOTE | 2021-10-16 10:04 | PM.PNNEP ---
Progress Note: A&P Assessment and Plan (1) End-stage renal disease (ESRD): Code(s): N18.6 - End stage renal disease Status: Acute Assessment and Plan: continue CCPD treatment while hospitalized good ultrafiltration with current PD prescription (two 4.25% and one 2.5% diaenal overnight) Volume status improving. Electrolytes doing okay. (2) Cardiac arrest: Code(s): I46.9 - Cardiac arrest, cause unspecified Status: Acute Assessment and Plan: etiology not clear Cardiology following with recommendations noted he follows some commands continue supportive care (3) Acute respiratory failure with hypoxia: Code(s): J96.01 - Acute respiratory failure with hypoxia Status: Acute Assessment and Plan: secondary to cardiac arrest and pneumonia Minute volume is just above 10. FiO2 40%. continue ventilator support completed antibiotic therapy (4) Hyponatremia: Code(s): E87.1 - Hypo-osmolality and hyponatremia Status: Acute Assessment and Plan: still low but stable, varying around 130. (5) Hypotension: Code(s): I95.9 - Hypotension, unspecified Status: Acute Assessment and Plan: blood pressure is low remains on levophed. Current dose is 7 (6) Bradycardia: Code(s): R00.1 - Bradycardia, unspecified Status: Chronic Assessment and Plan: apparently a chronic issue at baseline Heart rate okay off dopamine (7) Anemia: Code(s): D64.9 - Anemia, unspecified Status: Chronic Assessment and Plan: due to ESRD and possibly acute illness on Epogen follow H/H Will continue to follow. Subjective Date/time seen: 10/16/21 10:04 Interval history: The patient is being seen for end-stage renal disease. The patient is on the ventilator. He is sedated. Patient had 2606cc of fluid removed overnight. Exam Narrative: General: WD/WN male intubatedand on mechanical ventilation Heart: normal S1 and S2; no rub or gallop Lungs: coarse breath sounds Abdomen: obese but soft, nontender, nondistended, positive bowel sounds; PD catheter in place Extremities: 1+ chronic bilateral edema Skin: chronic venous stasis changes unchanged Objective Data Vital Signs Vital Signs: Vital Signs - 24 hr 10/15/21 10:54 10/15/21 12:00 10/15/21 14:00 Temperature 37.2 C Pulse Rate 74 71 70 Respiratory Rate 26 H 12 Blood Pressure 99/62 L 98/60 L Pulse Oximetry 100 100 100 10/15/21 15:10 10/15/21 15:24 10/15/21 15:25 Temperature Pulse Rate 77 76 77 Respiratory Rate 18 18 Blood Pressure Pulse Oximetry 100 10/15/21 16:00 10/15/21 17:00 10/15/21 17:35 Temperature 37.3 C Pulse Rate 72 72 76 Respiratory Rate 22 H Blood Pressure 92/56 L 92/56 L Pulse Oximetry 100 100 10/15/21 17:59 10/15/21 18:00 10/15/21 20:00 Temperature 35.9 C L Pulse Rate 74 73 75 Respiratory Rate 19 20 Blood Pressure 94/61 L 99/59 L Pulse Oximetry 100 100 10/15/21 20:07 10/15/21 20:08 10/15/21 20:25 Temperature Pulse Rate 76 74 75 Respiratory Rate 23 H 20 Blood Pressure Pulse Oximetry 100 10/15/21 22:00 10/15/21 23:30 10/16/21 00:00 Temperature 35.8 C L Pulse Rate 75 69 69 Respiratory Rate 23 H 16 Blood Pressure 106/71 93/59 L Pulse Oximetry 100 100 100 10/16/21 02:00 10/16/21 02:43 10/16/21 02:44 Temperature Pulse Rate 74 74 74 Respiratory Rate 24 H 29 H Blood Pressure 107/70 Pulse Oximetry 100 100 10/16/21 02:53 10/16/21 04:00 10/16/21 04:50 Temperature 35.7 C L Pulse Rate 72 74 81 Respiratory Rate 29 H 22 H Blood Pressure 93/59 L Pulse Oximetry 99 100 10/16/21 06:00 10/16/21 07:30 10/16/21 07:45 Temperature Pulse Rate 75 Respiratory Rate 25 H Blood Pressure 113/70 110/71 92/60 L Pulse Oximetry 100 10/16/21 07:48 10/16/21 07:55 10/16/21 08:38 Temperature 37.3 C Pulse Rate
[2021-10-16] MEDS: HYDROcodone/acetaminophen (*CRX) 10-325 MG TABLET 1 TAB PO (10:20)
--- NOTE | 2021-10-16 10:30 | PCFNICU ---
ICU Rounding Note: Pt current nutrition is Vital AF 1.2 at 70 ml/hr over 22 hours. Last recorded weight is 127.5 kg-stable Bowel Motility:+Bm reported 10/16 Labs Reviewed:Glu 221, Cr 7.3,GFR 8, Na 131, Hct 227.9,Hgb 9.3 Meds Noted:Levophed, Miralax, Protonix, PhosLo, Crestor, Zosyn, Cymbalta, Renvela, [place], Eliquis, Lantus, Novolog Skin: right foot/left lower leg-venous status ulcers. Additional Notes: Patient remains on mechanical vent and tube feedings of Vital AF 1.2 at 70 ml/hr over 22 hours. Failed breathing trail yesterday. Plans for Trach/PEG-10/17. Per nursing patient is tolerating tube feedings. Agree with diet orders. Following daily in ICU rounds. Will be reassessing every Wednesday and Wednesday.
[2021-10-16 12:19] LABS: Glucose Point of Care 115 mg/dl (65-105)
--- NOTE | 2021-10-16 12:54 | WPDCN ---
Assessment and Plan Assessment and plan (1) Respiratory failure: Code(s): J96.90 - Respiratory failure, unspecified, unspecified whether with hypoxia or hypercapnia Status: Acute Assessment and Plan: Plan is for the operating room for tracheostomy. Risks discussed with family personally. Risks include bleeding infection especially since anticoagulated. Failure to decannulate. Trauma to any structure above the clavicles. Change in voice. Family voiced understanding and agreed. Please make NPO at midnight. Please hold anticoagulation at midnight. Please verify consent for tracheostomy. HPI Data of Consult Date/Time: 10/16/21 12:54 Requesting Physician: Mian Mesa MD Primary Care Provider: PHYSICIAN NOT ON STAFF Consult Narrative Narrative: Rl Gomez . is a 65 year old male with respiratory insufficiency/failure. ENT consulted for tracheostomy placement. Review of Systems Review of Systems: ROS unobtainable: Yes unobtainable due to endotracheal tube PMFSH Past Medical History Medical History Acute kidney injury Amputation toe 2nd toe on the right Charcot's joint of foot Chronic anemia Chronic wound of extremity Coronary artery disease End-stage renal disease on hemodialysis Glaucoma Hyperlipidemia Hypertension Insulin dependent diabetes mellitus Ischemic cardiomyopathy Patient reports recent ejection fraction of about 35%. Osteoarthritis Paroxysmal atrial fibrillation Ventricular tachyarrhythmia Surgical History Surgical History History of bilateral knee arthroplasty History of cardiac catheterization (~2005) With history of stent to the LAD. History of implantable cardioverter-defibrillator (ICD) insertion With subsequent removal due to pocket infection. History of orthopedic surgery Right arm ORIF with hardware. History of tonsillectomy History of tracheostomy After lengthy hospitalization in 2018 for sepsis due to cellulitis. S/P dialysis catheter insertion Right chest Status post debridement Multiple debridements of bilateral lower leg wounds over the years. Family History Family History Mother Diabetes mellitus Acute myocardial infarction Hypertension Congestive heart failure Father Lung cancer Social History Social History Social History: Surrogate decision maker: Jenna Patricia, spouse. Code status: Full code. Smoking status: Never smoker Second hand tobacco smoke exposure: No Alcohol intake: never Substance use: never Substance use type: does not use Additional living arrangements comments: Resides with his spouse in [place]. They have 3 grown children. 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 Gender identity (if verbalized by the patient): Male Spiritual care concerns: No Meds Home Medications and Allergies Home Medications Medication Instructions Recorded Confirmed Type Eliquis 5 mg PO Q12H 04/06/20 10/04/21 History allopurinol 100 mg PO DAILY 04/06/20 10/03/21 History brimonidine 0.2 % OPHTHALMIC (EYE) Q12H 04/06/20 10/04/21 History dorzolamide-timolol 1 drp OPHTHALMIC (EYE) Q12H 04/06/20 10/04/21 History gabapentin 300 mg PO Q12H 04/06/20 10/04/21 History insulin aspart U-100 [Novolog See Rx Instructions .ROUTE .COMPLEX 04/06/20 10/03/21 History Flexpen U-100 Insulin] rosuvastatin 10 mg PO HS 04/06/20 10/04/21 History alprazolam 0.25 mg PO BID PRN 05/24/20 10/03/21 History duloxetine 60 mg PO DAILY 05/24/20 10/03/21 History bumetanide 2 mg PO ,06/20/20 10/04/21 History sevelamer carbonate 1,600 mg PO TIDWM 06/20/20 10/04/21 History diphenhydramine HCl [Benadryl] 50 mg PO HS 10/03/21 10/03/21 History ergocalciferol (vitamin D2) 1,250 mcg PO WEEKLY 10/03/21 10/03/21
--- NOTE | 2021-10-16 14:20 | WPDGIPROGNO ---
Progress Note: A&P Assessment and Plan (1) Respiratory failure: Code(s): J96.90 - Respiratory failure, unspecified, unspecified whether with hypoxia or hypercapnia Status: Acute Assessment and Plan: Patient with respiratory failure and ventilator dependence. Nutrition requires tube feedings. Plan to attempt PEG tube placement tomorrow. Anticoagulation to be held an additional day. Trach is also to be planned tomorrow morning we will plan PEG tube in the afternoon. (2) Ventilator dependence: Code(s): Z99.11 - Dependence on respirator [ventilator] status Status: Acute (3) Mediastinal mass: Code(s): J98.59 - Other diseases of mediastinum, not elsewhere classified Status: Acute (4) Ribs, multiple fractures: Code(s): S22.49XA - Multiple fractures of ribs, unspecified side, initial encounter for closed fracture Status: Acute (5) Pneumonia: Code(s): J18.9 - Pneumonia, unspecified organism Status: Acute (6) End-stage renal disease on peritoneal dialysis: Code(s): N18.6 - End stage renal disease; Z99.2 - Dependence on renal dialysis Status: Acute Subjective Date/time seen: 10/16/21 14:20 Patient remains intubated on the ventilator after cardiopulmonary arrest. Currently requiring tube feedings for nutritional status. Peg tube is been requested. Review of Systems Review of Systems: ROS unobtainable: Yes unobtainable due to endotracheal tube Exam Narrative: Physical exam patient is on the vent and not responsive. Lungs reveal bilateral rhonchi. Heart without murmur. Abdomen is obese. Bowel sounds are present soft nontender. No organomegaly evident. Objective Data Vital Signs Vital Signs: Vital Signs - 24 hr 10/15/21 15:10 10/15/21 15:24 10/15/21 15:25 Temperature Pulse Rate 77 76 77 Respiratory Rate 18 18 Blood Pressure Pulse Oximetry 100 10/15/21 16:00 10/15/21 17:00 10/15/21 17:35 Temperature 99.1 F Pulse Rate 72 72 76 Respiratory Rate 22 H Blood Pressure 92/56 L 92/56 L Pulse Oximetry 100 100 10/15/21 17:59 10/15/21 18:00 10/15/21 20:00 Temperature 96.7 F L Pulse Rate 74 73 75 Respiratory Rate 19 20 Blood Pressure 94/61 L 99/59 L Pulse Oximetry 100 100 10/15/21 20:07 10/15/21 20:08 10/15/21 20:25 Temperature Pulse Rate 76 74 75 Respiratory Rate 23 H 20 Blood Pressure Pulse Oximetry 100 10/15/21 22:00 10/15/21 23:30 10/16/21 00:00 Temperature 96.4 F L Pulse Rate 75 69 69 Respiratory Rate 23 H 16 Blood Pressure 106/71 93/59 L Pulse Oximetry 100 100 100 10/16/21 02:00 10/16/21 02:43 10/16/21 02:44 Temperature Pulse Rate 74 74 74 Respiratory Rate 24 H 29 H Blood Pressure 107/70 Pulse Oximetry 100 100 10/16/21 02:53 10/16/21 04:00 10/16/21 04:50 Temperature 96.3 F L Pulse Rate 72 74 81 Respiratory Rate 29 H 22 H Blood Pressure 93/59 L Pulse Oximetry 99 100 10/16/21 06:00 10/16/21 07:30 10/16/21 07:45 Temperature Pulse Rate 75 Respiratory Rate 25 H Blood Pressure 113/70 110/71 92/60 L Pulse Oximetry 100 10/16/21 07:48 10/16/21 07:55 10/16/21 08:00 Temperature 99.1 F Pulse Rate 74 Respiratory Rate 26 H Blood Pressure 92/60 L 96/63 L Pulse Oximetry 95 10/16/21 08:38 10/16/21 08:46 10/16/21 08:47 Temperature Pulse Rate 72 71 72 Respiratory Rate 14 16 Blood Pressure Pulse Oximetry 92 10/16/21 08:51 10/16/21 09:24 10/16/21 10:00 Temperature 98.9 F Pulse Rate 72 71 71 Respiratory Rate 20 15 Blood Pressure 84/54 L 87/56 L Pulse Oximetry 90 91 10/16/21 10:15 10/16/21 10:32 10/16/21 11:04 Temperature Pulse Rate 69 Respiratory Rate Blood Pressure 87/56 L 81/55 L Pulse Oximetry 95 10/16/21 11:27 10/16/21 11:46 10/16/21 11:59 Temperature 98.7 F Pulse Rate 68 Respiratory Rate Blood Pressure 78/57 L Pulse Oximetry 99 10/16/21 12:00 10/16/21 12
[2021-10-16 15:56] LABS: Glucose Point of Care 112 mg/dl (65-105)
[2021-10-16] MEDS: MORPHINE SULFATE (*CRX) 2 MG/ML INJ IV PUSH (15:56)
--- NOTE | 2021-10-16 15:57 | PM.IMHP ---
H&P: HPI History of Present Illness Date/Time: 10/16/21 15:57 Chief Complaint: respiratory failure respiratory insufficiency Narrative: plan tracheostomy [facility] Past Medical History Medical History Acute kidney injury Amputation toe 2nd toe on the right Charcot's joint of foot Chronic anemia Chronic wound of extremity Coronary artery disease End-stage renal disease on hemodialysis Glaucoma Hyperlipidemia Hypertension Insulin dependent diabetes mellitus Ischemic cardiomyopathy Patient reports recent ejection fraction of about 35%. Osteoarthritis Paroxysmal atrial fibrillation Ventricular tachyarrhythmia Surgical History Surgical History History of bilateral knee arthroplasty History of cardiac catheterization (~2005) With history of stent to the LAD. History of implantable cardioverter-defibrillator (ICD) insertion With subsequent removal due to pocket infection. History of orthopedic surgery Right arm ORIF with hardware. History of tonsillectomy History of tracheostomy After lengthy hospitalization in 2018 for sepsis due to cellulitis. S/P dialysis catheter insertion Right chest Status post debridement Multiple debridements of bilateral lower leg wounds over the years. Family History Family History Mother Diabetes mellitus Acute myocardial infarction Hypertension Congestive heart failure Father Lung cancer Social History Social History Social History: Surrogate decision maker: Jenna Gomez, spouse. Code status: Full code. Smoking status: Never smoker Second hand tobacco smoke exposure: No Alcohol intake: never Substance use: never Substance use type: does not use Additional living arrangements comments: Resides with his spouse in [place]. They have 3 grown children. 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 Gender identity (if verbalized by the patient): Male Spiritual care concerns: No Meds Home Medications and Allergies Home Medications Medication Instructions Recorded Confirmed Type Eliquis 5 mg PO Q12H 04/06/20 10/04/21 History allopurinol 100 mg PO DAILY 04/06/20 10/03/21 History brimonidine 0.2 % OPHTHALMIC (EYE) Q12H 04/06/20 10/04/21 History dorzolamide-timolol 1 drp OPHTHALMIC (EYE) Q12H 04/06/20 10/04/21 History gabapentin 300 mg PO Q12H 04/06/20 10/04/21 History insulin aspart U-100 [Novolog See Rx Instructions .ROUTE .COMPLEX 04/06/20 10/03/21 History Flexpen U-100 Insulin] rosuvastatin 10 mg PO HS 04/06/20 10/04/21 History alprazolam 0.25 mg PO BID PRN 05/24/20 10/03/21 History duloxetine 60 mg PO DAILY 05/24/20 10/03/21 History bumetanide 2 mg PO ,12 06/20/20 10/04/21 History sevelamer carbonate 1,600 mg PO TIDWM 06/20/20 10/04/21 History diphenhydramine HCl [Benadryl] 50 mg PO HS 10/03/21 10/03/21 History ergocalciferol (vitamin D2) 1,250 mcg PO WEEKLY 10/03/21 10/03/21 History [Vitamin D2] lisinopril 2.5 mg PO HS 10/03/21 10/03/21 History mupirocin 1 applic TOPICAL DAILY 10/03/21 10/03/21 History silver sulfadiazine 1 applic TOPICAL DAILY 10/03/21 10/03/21 History sodium chlor-hypochlorous acid 1 ea IRRIGATION DAILY 10/03/21 10/03/21 History [Vashe Wound Therapy] Allergies Allergy/AdvReac Type Severity Reaction Status Date / Time heparin Allergy Severe Unknown Verified 10/05/21 10:06 perflutren [From Definity] Allergy Severe Back Pain Verified 10/05/21 10:07 shellfish derived Allergy Intermediate Unknown Verified 10/03/21 13:03 iohexol Allergy Unknown Unknown Verified 10/03/21 13:03 [From contrast - CT, X-RAY] spironolactone Allergy Unknown Unknown Verified 10/03/21 13:03 [From Aldactone] Oaqgjkr-KSJ-GjS Reductase Allergy Unknown Unknown Verified 10/03/21 13:03 Inhibitor [Wqozgqs-Kov-Gsh Red
[2021-10-16] MEDS: ROSUVASTATIN 10 MG TABLET PO (20:33)
[2021-10-16 20:49] LABS: Glucose Point of Care 117 mg/dl (65-105)
[2021-10-16 23:48] LABS: Glucose Point of Care 223 mg/dl (65-105)
[2021-10-17] VITALS (27 sets, daily range): BP systolic 94–149; BP diastolic 55–87; PULSE 67–78; RESP 14–25; TEMP 35.9–36.7; O2SAT 95–100; BMI 40.3
[2021-10-17] MEDS: NOREPINEPHRINE 8 MG/D5W 250 ML 8 MG/250 ML BAG 13.13 MG IV CONT (02:11)
[2021-10-17] MEDS: ALBUTEROL SULFATE NEB 2.5 MG/0.5 ML INH INHALATION ×4 (02:30→19:34)
[2021-10-17] MEDS: IPRATROPIUM BR 0.02% INH SOLN 0.5 MG/2.5 ML VIAL INHALATION ×4 (02:30→19:34)
[2021-10-17 04:20] LABS: Glucose Point of Care 197 mg/dl (65-105)
[2021-10-17] MEDS: CENTRAL LINE FLUSH 10 ML IV PUSH ×3 (05:23→21:52)
[2021-10-17 05:29] LABS: Alveolar/Arterial O2 Gradient 105.5 mmHg; Carboxyhemoglobin 0.3 % THb (0-2.0); Fractional Inspired Oxygen 35 %; Methemoglobin ABG 0.3 %THb (0-1.5); Oxygen Content ABG 14.2 %vol (16.0-22.0); Oxygen Saturation ABG 97.9 % (95.0-100.0); Oxyhemoglobin 96.6 % THb (90.0-100.0); PO2 ABG 103.4 mmHg (80.0-100.0); PO2 FiO2 Ratio Arterial Blood 2.95 %; Reduced Hemoglobin 2.8 %THb (0-5.0); Total Hemoglobin 10.3 g/dL (12.0-18.0); pH ABG 7.417 (7.350-7.450)
[2021-10-17 05:32] LABS: Device VENTILATOR; Modified Allen's Test Pass; Site Drawn LEFT RADIAL
[2021-10-17 05:33] LABS: Arterial Blood Gas PEEP 8 cmH2O; Arterial Blood Gas Vent Mode ASV
--- NOTE | 2021-10-17 07:11 | WPDHPUPDATE1 ---
History and Physical Update Update Date/Time: 10/17/21 07:11 History and Physical has been reviewed, including an updated exam of the patient. There are NO changes in the patient's condition. Risks, benefits, and alternatives have been discussed and questions answered. Patient agrees to proceed with procedure.
[2021-10-17] MEDS: DORNASE ALFA INH SOLN 1 MG/ML 2.5 ML AMP 2.5 MG INHALATION ×2 (08:00→19:34)
[2021-10-17 08:39] LABS: Basophils Absolute Auto 0.2 K/mm3 (0.0-0.1); Basophils Percent Auto 0.8 % (0.2-1.2); Eosinophils Absolute Auto 0.5 K/mm3 (0-0.3); Eosinophils Percent Auto 2.1 % (0-4.4); Hemoglobin 9.4 g/dL (14.0-18.0); Immature Granulocyte Absolute 0.88 K/mm3 (0.00-0.031); Lymphocytes Absolute Auto 1.61 K/mm3 (0.9-3.2); Lymphocytes Percent Auto 7.4 % (18.3-44.2); Mean Corpuscular HGB Conc 33.6 g/dl (32-36); Mean Corpuscular Hemoglobin 31.3 pg (26-34); Mean Corpuscular Volume 93.3 fl (80-100); Mean Platelet Volume 10.6 fl (7.4-10.4); Monocytes Absolute Auto 1.8 K/mm3 (0.1-0.6); Monocytes Percent Auto 8.4 % (2.6-8.5); Neutrophils Absolute Auto 16.8 K/mm3 (1.3-6.7); Neutrophils Percent Auto 77.3 % (45.5-73.1); Nucleated Red Blood Cells Absolute Auto 0.1 K/mm3 (0.0-0.012); Nucleated Red Blood Cells Perc 0.4 % (0.0-0.2); Platelet Count Result 489 k/mm3 (150-375); Red Cell Distribution Width 15.2 % (11.5-14.5); White Blood Count 21.7 K/mm3 (4.5-10.0)
[2021-10-17] MEDS: DORZOLAMIDE/TIMOLOL OPHTH SOL 10 ML BOTTLE 1 DROP EACH EYE ×2 (08:40→20:16)
[2021-10-17] MEDS: PANTOPRAZOLE SODIUM IV 40 MG VIAL IV PUSH (08:40)
[2021-10-17] MEDS: BRIMONIDINE TARTRATE 0.2% OP SOLN 5 ML BTL 1 DROP EACH EYE ×2 (08:40→20:16)
[2021-10-17] MEDS: CALCIUM ACETATE 667 MG TABLET 1334 MG FEED TUBE ×3 (08:41→17:51)
[2021-10-17] MEDS: allopurinoL 100 MG TABLET PO (08:41)
[2021-10-17] MEDS: MINERAL OIL/WHITE PETROLATUM OINTMENT 1 APPLIC EACH EYE ×2 (08:42→20:16)
--- NOTE | 2021-10-17 08:42 | PM.PNCARD ---
Progress Note: A&P Assessment and Plan (1) Cardiac arrest: Code(s): I46.9 - Cardiac arrest, cause unspecified Status: Acute Assessment and Plan: There is no clear evidence for association with his bradycardia as a cause or contributor. Most likely secondary to hypoxia and or sepsis/septic shock with hypotension. The significance of the fact that he was on PD at the time also must be considered. At this time, most likely explanation respiratory decompensation, worsening pneumonia sepsis/septic shock. He has been weaned off of dopamine at this point. His blood pressure remains stable, he is still on Levophed that is being titrated. Heart rate is stable in the 60s. If he becomes significantly bradycardic with hemodynamic instability would recommend restarting the dopamine drip. No plan or indication for transvenous or permanent pacer at this time. Patient is critically ill, prognosis guarded. (2) Acute respiratory failure with hypoxia: Code(s): J96.01 - Acute respiratory failure with hypoxia Status: Acute Assessment and Plan: Remains intubated on mechanical ventilatory support. On IV antibiotics. Per Critical Care. (3) Septic shock: Code(s): A41.9 - Sepsis, unspecified organism; R65.21 - Severe sepsis with septic shock Status: Acute Assessment and Plan: Remains on norepinephrine. On broad-spectrum antibiotics. Management per critical care (4) Bradycardia: Code(s): R00.1 - Bradycardia, unspecified Status: Acute Assessment and Plan: Asymptomatic, chronic. This is indicative of underlying significant conduction system disease. (5) Persistent atrial fibrillation: Code(s): I48.19 - Other persistent atrial fibrillation Status: Acute Assessment and Plan: Atrial fibrillation is not new, chronic as well as his bradycardia. He has close follow-up with his senior asic engineer at [facility] with discussion regarding lead loose pacemaker implantation in the future. -Continue to avoid AV miles blocking agents. -Remains on systemic anticoagulation with Eliquis albeit on hold for trach and PEG tomorrow (6) Elevated troponin: Code(s): R77.8 - Other specified abnormalities of plasma proteins Status: Acute Assessment and Plan: Type 2 infarction minimal elevation given renal failure, history of CAD, hypertension, hypoxia not secondary to acute coronary syndrome and/or plaque rupture. (7) End-stage renal disease (ESRD): Code(s): N18.6 - End stage renal disease Status: Acute Assessment and Plan: Peritoneal dialysis per Nephrology. (8) Ischemic cardiomyopathy: Code(s): I25.5 - Ischemic cardiomyopathy Status: Acute Assessment and Plan: Stable, chronic heart failure with reduced ejection fraction reasonably compensated. Volume management with Nephrology and peritoneal dialysis. (9) Community acquired pneumonia: Code(s): J18.9 - Pneumonia, unspecified organism Status: Acute Assessment and Plan: Management per primary service with antibiotics as appropriate. Chest x-ray with worsening left-sided infiltrate. CT chest pending. (10) Chronic anticoagulation: Code(s): Z79.01 - retirement (current) use of anticoagulants Status: Acute Assessment and Plan: Continue Eliquis but it has been on hold for upcoming PEG and trach Monitor for bleeding. (11) Status post fall: Code(s): Z91.81 - History of falling Status: Acute Assessment and Plan: PT OT eval. Management per primary service. (12) Diminished pulse in upper extremity: Code(s): R09.89 - Other specified symptoms and signs involving the circulatory and respiratory systems Status: Acute Assessment and Plan: Will order a stat left upper extremity arterial Doppler because of his diminished pulse and cool hand Subjective Date/time seen: 10/17/21 08:42 Interval hist
--- NOTE | 2021-10-17 08:45 | WPDINTPN ---
Progress Note: A&P Assessment and Plan (1) Acute respiratory failure with hypoxia: Code(s): J96.01 - Acute respiratory failure with hypoxia Status: Acute Assessment and Plan: Acute Respiratory failure secondary to cardiac arrest, pneumonia, pulmonary edema, left pleural effusion. Intubated on 10/04/2021 during code blue - Continue full mechanical ventilation support to prevent hypoxemia/hypercarbia and end organ damage. -PCXR reviewed -advance ET tube by 2 cm -patient has been on ASV mode with 35% FiO2 and 8 of PEEP. -off all sedation since 10/09 -10/07/2021: Sputum culture growing E coli, sensitive to cefepime, Zosyn, imipenem and gentamicin. - 10/11 -repeat culture still growing E coli ESBL which is sensitive to imipenem --10/14 DC Vanc, changed Zosyn to imipenem -continue to try to remove as much fluid possible but PD -continues to have thick secretions from ET tube, on Pulmozyme and bronchodilators -patient tolerated only few hours of PSV 15/8 yesterday. Will try again today - Patient was intubated on 10/04 and today is day 14 on the ventilator. ENT has been consulted and patient is scheduled for tracheostomy today 10/09/2021: CT chest, abdomen, pelvis without contrast 1. Small right and moderate left pleural effusions with collapse of the bilateral lower lobes with additional dependent compressive atelectasis. 2. Cardiomegaly. 3. Nonspecific 2.2 x 1.4 cm anterior mediastinal mass with differential including enlarged lymph node or thymoma. 4. Small volume of ascites with peritoneal dialysis catheter. (2) End-stage renal disease on peritoneal dialysis: Code(s): N18.6 - End stage renal disease; Z99.2 - Dependence on renal dialysis Status: Acute Assessment and Plan: patient is being followed by Nephrology and is currently peritoneal dialysis. -discussed with nephrology. Patient will need a PEG tube, Dr. Combs plans to transition him to hemodialysis. He will discuss with patient's nurse family and also consult surgery for a tunneled dialysis catheter placement (3) Cardiac arrest: Code(s): I46.9 - Cardiac arrest, cause unspecified Status: Acute Assessment and Plan: Its possible patient's cardiac arrest secondary to junctional bradycardia or slow AFib Troponins, although mildly elevated in presence of end-stage renal disease, remained flat EKG showed AFib/ junctional bradycardia with heart rate in 40s -off dopamine 10/12 -continue Levophed to maintain mean arterial pressures > 65 mmHg - he may need transvenous pacemaker and I have discussed with Cardiology - cardiology is following - continue Eliquis - 10/09: Discussed with Cardiology, maintain dopamine, once he is more stable will wean dopamine and evaluate -repeat head CT on 10/09: No acute intracranial findings or interval change, mild atrophy and microangiopathy. -patient opens his eyes to name and follows simple commands in all extremities 10/06/2021 Echo: - mild LVH; moderate-severe LV systolic dysfunction, ejection fraction about 30-35% - Moderate-severe aortic stenosis - Moderate pulmonary hypertension, RVSP 54 mmHg (4) Persistent atrial fibrillation: Code(s): I48.19 - Other persistent atrial fibrillation Status: Acute Assessment and Plan: currently in junctional bradycardia - see above Eliquis is on hold for trach and PEG (5) Bradycardia: Code(s): R00.1 - Bradycardia, unspecified Status: Chronic Assessment and Plan: see above (6) Pneumonia: Code(s): J18.9 - Pneumonia, unspecified organism Status: Acute Assessment and Plan: patient on the floor was being treated for community-acquired pneumonia antibiotics were broadened yesterday after intubation as possible patient may have aspirated 10/03/2021 Blood cultures: Negative Procalcitonin level 6.4 10/08: leukocystosis persists -10/07/2021: Sputum culture -growing E coli, sensitive to cefepime, Zosy
[2021-10-17 08:50] LABS: Alanine Aminotransferase 68 U/L (4-50); Albumin Level 3.5 g/dL (3.5-5.1); Alkaline Phosphatase 318 U/L (38-126); Anion Gap 18 mmol/L (8-16); Aspartate Amino Transferase 47 U/L (17-59); Bilirubin,Total 0.6 mg/dL (0.2-1.3); Blood Urea Nitrogen 98 mg/dL (9-20); Carbon Dioxide 25 mmol/L (22-30); Chloride 89 mmol/L (98-107); Estimated CRCL calculation 12 ml/min; Estimated Glomerular Filt Rate 7; Glucose 145 mg/dL (65-110); Magnesium 2.6 mg/dL (1.6-2.3); Phosphorus 6.1 mg/dL (2.5-4.5); Potassium 4.1 mmol/L (3.4-5.0); Sodium 132 mmol/L (137-145)
[2021-10-17] MEDS: ceFAZolin SODIUM 1 GM VIAL 2 GM IV PUSH (09:32)
[2021-10-17] MEDS: LIDO 1%/EPINEPHRINE/PF 1:200,000 30 ML VIAL 10 ML XX (09:44)
--- NOTE | 2021-10-17 10:17 | WPDGIPROGNO ---
Progress Note: A&P Assessment and Plan (1) Respiratory failure: Code(s): J96.90 - Respiratory failure, unspecified, unspecified whether with hypoxia or hypercapnia Status: Acute Assessment and Plan: Patient with respiratory failure and ventilator dependency. Peg tube anticipated for nutritional support. However we will defer this because of peritoneal dialysis. Reconsider PEG tube placement next week. (2) Chronic anticoagulation: Code(s): Z79.01 - custodial (current) use of anticoagulants Status: Acute Assessment and Plan: Patient on anticoagulation with atrial fibrillation. This will be need to be held during the interval of PEG tube placement. May restart under the direction of ENT service after tracheostomy today. (3) End-stage renal disease on peritoneal dialysis: Code(s): N18.6 - End stage renal disease; Z99.2 - Dependence on renal dialysis Status: Acute Subjective Date/time seen: 10/17/21 10:17 Patient remains on the ventilator in the ICU. Poorly responsive. Review of Systems Review of Systems: ROS unobtainable: Yes unobtainable due to endotracheal tube Exam Narrative: On physical exam patient remains on the ventilator. Lungs reveal a few rhonchi. Abdomen is obese. Bowel sounds are present soft peritoneal dialysis and CAD place. Objective Data Vital Signs Vital Signs: Vital Signs - 24 hr 10/16/21 10:32 10/16/21 11:04 10/16/21 11:27 Temperature Pulse Rate 69 68 Respiratory Rate Blood Pressure 81/55 L Pulse Oximetry 95 99 10/16/21 11:46 10/16/21 11:59 10/16/21 12:00 Temperature 98.7 F Pulse Rate 66 Respiratory Rate 13 Blood Pressure 78/57 L 95/62 L Pulse Oximetry 99 10/16/21 12:12 10/16/21 12:44 10/16/21 14:00 Temperature Pulse Rate 73 Respiratory Rate 24 H Blood Pressure 95/62 L 98/66 L 95/65 L Pulse Oximetry 99 10/16/21 14:34 10/16/21 14:37 10/16/21 15:15 Temperature Pulse Rate 72 72 Respiratory Rate 27 H Blood Pressure 98/66 L Pulse Oximetry 98 10/16/21 15:53 10/16/21 16:00 10/16/21 16:15 Temperature 98.2 F Pulse Rate 71 Respiratory Rate 19 Blood Pressure 91/59 L 91/59 L Pulse Oximetry 98 10/16/21 17:15 10/16/21 17:29 10/16/21 17:49 Temperature Pulse Rate 67 Respiratory Rate Blood Pressure 93/59 L 84/63 L Pulse Oximetry 98 10/16/21 18:00 10/16/21 20:00 10/16/21 20:15 Temperature 97.9 F Pulse Rate 68 68 69 Respiratory Rate 19 24 H 16 Blood Pressure 98/62 L 97/66 L Pulse Oximetry 97 99 10/16/21 20:16 10/16/21 20:32 10/16/21 22:00 Temperature Pulse Rate 68 68 69 Respiratory Rate 16 23 H Blood Pressure 107/66 Pulse Oximetry 99 97 10/16/21 23:17 10/17/21 00:00 10/17/21 02:00 Temperature 96.6 F L Pulse Rate 66 68 72 Respiratory Rate 20 22 H Blood Pressure 96/57 L 106/68 Pulse Oximetry 98 97 97 10/17/21 02:11 10/17/21 02:30 10/17/21 02:40 Temperature Pulse Rate 73 68 68 Respiratory Rate 16 16 Blood Pressure 98/61 L Pulse Oximetry 98 10/17/21 04:00 10/17/21 06:00 10/17/21 07:06 Temperature 98 F 98 F Pulse Rate 72 77 75 Respiratory Rate 19 17 22 H Blood Pressure 99/66 L 94/55 L 101/58 L Pulse Oximetry 96 96 95 10/17/21 08:00 10/17/21 08:14 Temperature Pulse Rate 75 76 Respiratory Rate 22 H 25 H Blood Pressure Pulse Oximetry 95 Intake/Output Intake/Output: Intake & Output 10/14/21 10/15/21 10/16/21 10/17/21 23:59 23:59 23:59 23:59 Intake Total 2646.0 2862.3 2682 600 Output Total 3048 2346 2630 2 Balance -402.0 516.3 52 598 Meds/Results Medications: Active Medications Generic Name Dose Route Start Last Admin Trade Name Freq PRN Reason Stop Dose Admin Hydrocodone Bitart/Acetaminophen 1 tab 10/16/21 07:42 10/16/21 10:20 Hydrocodone/Acetaminophen (*Crx) 10-325 Mg Tablet PO 1 tab Q4H PRN Administration Pain Rated 4-6 Albuterol 2.5 mg 04/11/22 14:0
--- NOTE | 2021-10-17 10:38 | P.PNNP_ITS ---
Progress Note: A&P Assessment and Plan (1) End-stage renal disease (ESRD): Code(s): N18.6 - End stage renal disease Status: Acute Assessment and Plan: * continue CCPD treatment while hospitalized * good ultrafiltration with current PD prescription * his blood pressure is still soft. He is on is 7 mics of norepinephrine still. * His swelling is much better. * Will reduce how much fluid I take off. * He is on Vital tube feedings right now. Will switch to Nepro when he gets back from his procedure. * Considering his going to go to an LTAC and will need a PEG tube will switch to hemodialysis next week. So will consult surgery to place a PermCath on Wednesday or Wednesday and then the PEG can be placed after that when he is off PD. Will leave the PD catheter in place for now in case he has recovery enough to go home. * Electrolytes doing okay. (2) Cardiac arrest: Code(s): I46.9 - Cardiac arrest, cause unspecified Status: Acute Assessment and Plan: * etiology not clear * Cardiology following with recommendations noted * he follows some commands * continue supportive care (3) Acute respiratory failure with hypoxia: Code(s): J96.01 - Acute respiratory failure with hypoxia Status: Acute Assessment and Plan: * secondary to cardiac arrest and pneumonia * Minute volume is just above 10. FiO2 40%. * continue ventilator support * completed antibiotic therapy * Getting a trach today. (4) Hyponatremia: Code(s): E87.1 - Hypo-osmolality and hyponatremia Status: Acute Assessment and Plan: * still low but stable, varying around 130. (5) Hypotension: Code(s): I95.9 - Hypotension, unspecified Status: Acute Assessment and Plan: * blood pressure is low * remains on levophed. Current dose is 7 (6) Bradycardia: Code(s): R00.1 - Bradycardia, unspecified Status: Chronic Assessment and Plan: * apparently a chronic issue at baseline * Heart rate okay off dopamine (7) Anemia: Code(s): D64.9 - Anemia, unspecified Status: Chronic Assessment and Plan: * due to ESRD and possibly acute illness * on Epogen * follow H/H Will continue to follow. Subjective Date/time seen: 10/17/21 10:38 Interval history: The patient is being seen for end-stage renal disease. The patient is on the ventilator. He is sedated. Patient had 1800cc of fluid removed overnight. Exam Narrative: General: WD/WN male intubatedand on mechanical ventilation Heart: normal S1 and S2; no rub Lungs: coarse breath sounds Abdomen: obese but soft, nontender, nondistended, positive bowel sounds; PD catheter in place Extremities: Trace to 1+ chronic bilateral edema Skin: chronic venous stasis changes unchanged Objective Data Vital Signs Vital Signs: Vital Signs - 24 hr 10/16/21 11:04 10/16/21 11:27 10/16/21 11:46 Temperature Pulse Rate 68 Respiratory Rate Blood Pressure 81/55 L 78/57 L Pulse Oximetry 99 10/16/21 11:59 10/16/21 12:00 10/16/21 12:12 Temperature 37.1 C Pulse Rate 66 Respiratory Rate 13 Blood Pressure 95/62 L 95/62 L Pulse Oximetry 99 10/16/21 12:44 10/16/21 14:00 10/16/21 14:34 Temper
--- NOTE | 2021-10-17 10:38 | PM.PNNEP ---
Progress Note: A&P Assessment and Plan (1) End-stage renal disease (ESRD): Code(s): N18.6 - End stage renal disease Status: Acute Assessment and Plan: continue CCPD treatment while hospitalized good ultrafiltration with current PD prescription his blood pressure is still soft. He is on is 7 mics of norepinephrine still. His swelling is much better. Will reduce how much fluid I take off. He is on Vital tube feedings right now. Will switch to Nepro when he gets back from his procedure. Considering his going to go to an LTAC and will need a PEG tube will switch to hemodialysis next week. So will consult surgery to place a PermCath on Wednesday or Wednesday and then the PEG can be placed after that when he is off PD. Will leave the PD catheter in place for now in case he has recovery enough to go home. Electrolytes doing okay. (2) Cardiac arrest: Code(s): I46.9 - Cardiac arrest, cause unspecified Status: Acute Assessment and Plan: etiology not clear Cardiology following with recommendations noted he follows some commands continue supportive care (3) Acute respiratory failure with hypoxia: Code(s): J96.01 - Acute respiratory failure with hypoxia Status: Acute Assessment and Plan: secondary to cardiac arrest and pneumonia Minute volume is just above 10. FiO2 40%. continue ventilator support completed antibiotic therapy Getting a trach today. (4) Hyponatremia: Code(s): E87.1 - Hypo-osmolality and hyponatremia Status: Acute Assessment and Plan: still low but stable, varying around 130. (5) Hypotension: Code(s): I95.9 - Hypotension, unspecified Status: Acute Assessment and Plan: blood pressure is low remains on levophed. Current dose is 7 (6) Bradycardia: Code(s): R00.1 - Bradycardia, unspecified Status: Chronic Assessment and Plan: apparently a chronic issue at baseline Heart rate okay off dopamine (7) Anemia: Code(s): D64.9 - Anemia, unspecified Status: Chronic Assessment and Plan: due to ESRD and possibly acute illness on Epogen follow H/H Will continue to follow. Subjective Date/time seen: 10/17/21 10:38 Interval history: The patient is being seen for end-stage renal disease. The patient is on the ventilator. He is sedated. Patient had 1800cc of fluid removed overnight. Exam Narrative: General: WD/WN male intubatedand on mechanical ventilation Heart: normal S1 and S2; no rub Lungs: coarse breath sounds Abdomen: obese but soft, nontender, nondistended, positive bowel sounds; PD catheter in place Extremities: Trace to 1+ chronic bilateral edema Skin: chronic venous stasis changes unchanged Objective Data Vital Signs Vital Signs: Vital Signs - 24 hr 10/16/21 11:04 10/16/21 11:27 10/16/21 11:46 Temperature Pulse Rate 68 Respiratory Rate Blood Pressure 81/55 L 78/57 L Pulse Oximetry 99 10/16/21 11:59 10/16/21 12:00 10/16/21 12:12 Temperature 37.1 C Pulse Rate 66 Respiratory Rate 13 Blood Pressure 95/62 L 95/62 L Pulse Oximetry 99 10/16/21 12:44 10/16/21 14:00 10/16/21 14:34 Temperature Pulse Rate 73 72 Respiratory Rate 24 H 27 H Blood Pressure 98/66 L 95/65 L Pulse Oximetry 99 10/16/21 14:37 10/16/21 15:15 10/16/21 15:53 Temperature 36.8 C Pulse Rate 72 Respiratory Rate Blood Pressure 98/66 L Pulse Oximetry 98 10/16/21 16:00 10/16/21 16:15 10/16/21 17:15 Temperature Pulse Rate 71 Respiratory Rate 19 Blood Pressure 91/59 L 91/59 L 93/59 L Pulse Oximetry 98 10/16/21 17:29 10/16/21 17:49 10/16/21 18:00 Temperature Pulse Rate 67 68 Respiratory Rate 19 Blood Pressure 84/63 L 98/62 L Pulse Oximetry 98 97 10/16/21 20:00 10/16/21 20:15 10/16/21 20:16 Temperature 36.6 C Pulse Rate 68 69 68 Resp
--- NOTE | 2021-10-17 10:38 | PCNFU ---
Nutrition Follow-Up Complete: Inadequate Oral Intake as related to mechanical ventilation as evidenced by NPO. goal: Meet estimated nutritional needs Patient is progressing towards goal. We will continue current goal. Pt current nutrition is NPO. Nutrition recommendation: Nepro at 60 ml/hr over 22 hours. Last recorded weight is 127.5 kg, up from 122.5 gm on admit. Bowel Motility:+BM reported 10/17 Labs Reviewed:BUN 92, Cr 7.3,Na 131, Hct 27.9,Hgb 9.3,Glu 221 Meds Noted:Lantus, Levophed, Protonix, PhosLo, Atrovent Skin: right foot/left lower leg-venous status ulcer. Additional Notes: Patient currently NPO for Trach today. PD dialysis continues. Plans for PEG next week. Spoke with Manager Membership today tube feeding formula change from Vital AF 1.2 at Nepro. Recommend goal rate at 60 ml/hr over 22 hours providing 2178 kcals/87 gm protein/960 ml water. Free water flush 30 ml q 4 hours. Agree with diet orders. Will be monitoring in ICU rounds and reassessing every Wednesday and Wednesday.
--- NOTE | 2021-10-17 10:39 | W.PM.PROC2 ---
Procedure Note - Detailed Date of Procedure 10/17/21 Pre-op Diagnosis Respiratory failure, respiratory insufficiency Post-op Diagnosis Same Procedure Performed Tracheostomy Surgeon Tres Li MD Anesthesia General Indications See above Findings Scar tissue over the edge trachea difficult visualization 8 proximal XLT trach placed between tracheal rings 2 and 3 fracture of ring 3 during placement Description of Procedure Patient identified consent verified ICU. Patient brought to OR. Time-out performed. Anesthesia deep in. Patient prepped and draped for for mentioned procedure. Second time-out performed. 2 cc of 1% lidocaine 1 100,000 parts epinephrine injected deep to pre drawn surgical incision over the previous tracheostomy scar just below the cricoid. Bovie electrocautery at a setting of 10 on cut utilized to cut the skin Bovie electrocautery at a setting of 10-15 on coag along with [employer] utilized to dissect deep to the tracheal and laryngeal framework. Cricoid hook placed to suspend superior anteriorly. The tracheal framework exposed. Tracheal rings identified. Anesthesia informed and deepened anesthesia as well as lowered there endotracheal tube about 1 cm. Bleeding was non-existent in hemostasis excellent at this point given that the patient was anticoagulated great care was made to ensure that he did not bleed. Fifteen blade utilized to make tracheotomy between rings 2 and 3. Trach dimethylaniline sulfator operator placed. Tracheal ring 3 cracked anteriorly. Eight proximal XLT cuffed [place] placed. [place] is removed. Anesthesia connected to circuit and confirmed adequate placement. We waited about 2 minutes to ensure that the cuffed maintained pressure. Cricoid removed. Four corner trach sutures placed. They were 0 silk. The [place] trach ties applied. This drain sponge applied as well. I performed all dictated portions of the procedure. No complications. Blood loss about 5 cc. Care the patient was given again Anesthesiology. Implants Eight proximal XLT Shiley Estimated Blood Loss 5 Urine Output 0 Drains No Packing No Pathology None sent Complications No immediate complications Condition Stable Disposition ICU
[2021-10-17 12:27] LABS: Glucose Point of Care 150 mg/dl (65-105)
[2021-10-17 12:29] LABS: Glucose Point of Care 63 mg/dl (65-105); Glucose Point of Care 66 mg/dl (65-105)
[2021-10-17] MEDS: DEXTROSE 50% 25 GM/50 ML SYRINGE IV PUSH (12:36)
[2021-10-17 13:22] LABS: Glucose Point of Care 98 mg/dl (65-105)
[2021-10-17] MEDS: HYDROCORTISONE SODIUM SUCCINATE 100 MG/2 ML VIAL IV PUSH ×2 (14:28→17:53)
[2021-10-17] MEDS: MIDODRINE HCL 10 MG TABLET FEED TUBE ×2 (14:29→21:52)
[2021-10-17] MEDS: SOD HYPOCHLORITE 1/4 STRENGTH 473 ML 1 APPLIC TOPICAL (17:52)
[2021-10-17] MEDS: MUPIROCIN 2% OINT 22 GM TUBE 1 APPLIC TOPICAL (17:52)
[2021-10-17] MEDS: SILVER SULFADIAZINE 1% CR 50 GM JAR (*BKC) 1 APPLIC TOPICAL (17:53)
[2021-10-17 18:07] LABS: Glucose Point of Care 111 mg/dl (65-105)
[2021-10-17] MEDS: EPOETIN ALFA-EPBX 10,000 UNITS/ML VIAL 10000 UNITS SUB-Q (18:36)
[2021-10-17 20:16] LABS: Glucose Point of Care 191 mg/dl (65-105)
[2021-10-17] MEDS: ROSUVASTATIN 10 MG TABLET PO (20:17)
[2021-10-17] MEDS: NOREPINEPHRINE 8 MG/D5W 250 ML 8 MG/250 ML BAG 11.25 MG IV CONT (20:19)
[2021-10-17] MEDS: APIXABAN 5 MG TABLET PO (21:52)
[2021-10-18] VITALS (34 sets, daily range): BP systolic 85–140; BP diastolic 43–73; PULSE 50–70; RESP 13–29; TEMP 36.1–37.1; O2SAT 90–100
[2021-10-18] MEDS: INSULIN ASPART (*BKC) 100 UNITS/ML SUB-Q ×3 (01:01→08:31)
[2021-10-18] MEDS: HYDROCORTISONE SODIUM SUCCINATE 100 MG/2 ML VIAL IV PUSH ×3 (01:02→18:27)
[2021-10-18 01:25] LABS: Glucose Point of Care 332 mg/dl (65-105)
[2021-10-18] MEDS: ALBUTEROL SULFATE NEB 2.5 MG/0.5 ML INH INHALATION ×4 (01:46→20:10)
[2021-10-18] MEDS: IPRATROPIUM BR 0.02% INH SOLN 0.5 MG/2.5 ML VIAL INHALATION ×4 (01:46→20:10)
[2021-10-18 04:38] LABS: Alveolar/Arterial O2 Gradient 118.3 mmHg; Base Excess ABG -1.6 mEq/l (+/-2.0); Carboxyhemoglobin 0.2 % THb (0-2.0); Fractional Inspired Oxygen 35 %; Methemoglobin ABG 0.2 %THb (0-1.5); Oxygen Content ABG 16.1 %vol (16.0-22.0); Oxygen Saturation ABG 97.4 % (95.0-100.0); Oxyhemoglobin 96.4 % THb (90.0-100.0); PCO2 ABG 33.5 mmHg (35.0-45.0); PO2 ABG 92.3 mmHg (80.0-100.0); PO2 FiO2 Ratio Arterial Blood 2.64 %; Reduced Hemoglobin 3.2 %THb (0-5.0); Total Hemoglobin 11.8 g/dL (12.0-18.0); pH ABG 7.435 (7.350-7.450)
[2021-10-18 04:48] LABS: Device VENTILATOR; Modified Allen's Test Unable to perform; Site Drawn RIGHT RADIAL
[2021-10-18 04:49] LABS: Arterial Blood Gas PEEP 8 cmH2O; Arterial Blood Gas Vent Mode ASV
[2021-10-18] MEDS: MIDODRINE HCL 10 MG TABLET FEED TUBE ×3 (05:09→22:05)
[2021-10-18] MEDS: CENTRAL LINE FLUSH 10 ML IV PUSH ×3 (05:09→22:04)
[2021-10-18 05:15] LABS: Glucose Point of Care 318 mg/dl (65-105)
--- NOTE | 2021-10-18 07:41 | WPDANESPN ---
Anes - Prog Note Post-Op Date/Time: 10/18/21 07:41 Cardiovascular status: normal Respiratory status: normal Airway patency: baseline Mental status: baseline Post-Op hydration status: normal Vital Signs: Last Vital Signs Temp 36.9 C 10/18/21 03:52 Pulse 68 10/18/21 06:00 Resp 18 10/18/21 06:00 BP 93/64 L 10/18/21 06:55 Pulse Ox 98 10/18/21 06:00 Pain Score (VAS): 2 I/O: Intake & Output 10/17/21 10/17/21 10/18/21 15:59 23:59 07:59 Intake Total 100 1166 655 Output Total 1903 0 Balance -1803 1166 655 Laboratory Tests 10/17/21 08:23 10/17/21 08:23 10/17/21 10/17/21 10/17/21 08:23 08:23 08:23 WBC 21.7 H RBC 3.00 L Hgb 9.4 L Hct 28.0 L MCV 93.3 MCH 31.3 MCHC 33.6 RDW 15.2 H Plt Count 489 H MPV 10.6 H Immature Gran % (Auto) 4.0 H Neut % (Auto) 77.3 H Lymph % (Auto) 7.4 L [place] % (Auto) 8.4 Eos % (Auto) 2.1 Baso % (Auto) 0.8 Lymph # (Auto) 1.61 [place] # (Auto) 1.8 H Eos # (Auto) 0.5 H Baso # (Auto) 0.2 H Abs Immat Gran (auto) 0.88 H Absolute Neuts (auto) 16.8 H Absolute Nucleated RBC 0.1 H Nucleated RBC % 0.4 H Puncture Site ABG pH ABG pCO2 ABG pO2 ABG PO2/FiO2 Ratio ABG HCO3 ABG O2 Saturation ABG O2 Content ABG Base Excess A-a Gradient Oxyhemoglobin Carboxyhemoglobin Methemoglobin Reduced Hemoglobin Total Hemoglobin O2 Delivery Device O2 Liters/Min Minute Volume Vent Rate Vent Mode FiO2 Tidal Volume PEEP Peak Inspir Pressure Pressure Support Sodium 132 L Potassium 4.1 Chloride 89 L Carbon Dioxide 25 Anion Gap 18 H BUN 98 H Creatinine 7.40 H Estim Creat Clear Calc 12 Estimated GFR 7 L Glucose 145 H POC Capillary Glucose 150 H Calcium 9.0 Phosphorus 6.1 H Magnesium 2.6 H Total Bilirubin 0.6 AST 47 ALT 68 H Alkaline Phosphatase 318 H Total Protein 7.0 Albumin 3.5 10/17/21 10/17/21 10/17/21 12:27 12:27 13:19 WBC RBC Hgb Hct MCV MCH MCHC RDW Plt Count MPV Immature Gran % (Auto) Neut % (Auto) Lymph % (Auto) [place] % (Auto) Eos % (Auto) Baso % (Auto) Lymph # (Auto) [place] # (Auto) Eos # (Auto) Baso # (Auto) Abs Immat Gran (auto) Absolute Neuts (auto) Absolute Nucleated RBC Nucleated RBC % Puncture Site ABG pH ABG pCO2 ABG pO2 ABG PO2/FiO2 Ratio ABG HCO3 ABG O2 Saturation ABG O2 Content ABG Base Excess A-a Gradient Oxyhemoglobin Carboxyhemoglobin Methemoglobin Reduced Hemoglobin Total Hemoglobin O2 Delivery Device O2 Liters/Min Minute Volume Vent Rate Vent Mode FiO2 Tidal Volume PEEP Peak Inspir Pressure Pressure Support Sodium Potassium Chloride Carbon Dioxide Anion Gap BUN Creatinine Estim Creat Clear Calc Estimated GFR Glucose POC Capillary Glucose 66 63 L 98 Calcium Phosphorus Magnesium Total Bilirubin AST ALT Alkaline Phosphatase Total Protein Albumin 10/17/21 10/17/21 10/18/21 18:03 20:14 01:00 WBC RBC Hgb Hct MCV MCH MCHC RDW Plt Count MPV Immature Gran % (Auto) Neut % (Auto) Lymph % (Auto) [place] % (Auto) Eos % (Auto) Baso % (Auto) Lymph # (Auto) [place] # (Auto) Eos # (Auto) Baso # (Auto) Abs Immat Gran (auto) Absolute Neuts (auto) Absolute Nucleated RBC Nucleated RBC % Puncture Site ABG pH ABG pCO2 ABG pO2 ABG PO2/FiO2 Ratio ABG HCO3 ABG O2 Saturation ABG O2 Content ABG Base Excess A-a Gradient Oxyhemoglobin Carboxyhemoglobin Methemoglobin Reduced Hemoglobin Total Hemoglobin O2 Delivery Device O2 Liters/Min Minute Volume Vent Rate Vent Mode
[2021-10-18 08:02] LABS: Glucose Point of Care 241 mg/dl (65-105)
[2021-10-18] MEDS: PANTOPRAZOLE SODIUM IV 40 MG VIAL IV PUSH (08:05)
[2021-10-18] MEDS: CALCIUM ACETATE 667 MG TABLET 1334 MG FEED TUBE ×3 (08:05→18:26)
[2021-10-18] MEDS: BRIMONIDINE TARTRATE 0.2% OP SOLN 5 ML BTL 1 DROP EACH EYE ×2 (08:05→20:04)
[2021-10-18] MEDS: allopurinoL 100 MG TABLET PO (08:05)
[2021-10-18] MEDS: DORZOLAMIDE/TIMOLOL OPHTH SOL 10 ML BOTTLE 1 DROP EACH EYE ×2 (08:05→20:04)
[2021-10-18] MEDS: MINERAL OIL/WHITE PETROLATUM OINTMENT 1 APPLIC EACH EYE ×2 (08:06→20:05)
[2021-10-18] MEDS: ERGOCALCIFEROL 50,000 UNIT CAPSULE 50000 UNITS PO (08:06)
[2021-10-18] MEDS: INSULIN GLARGINE (*BKC) 100 UNITS/ML 45 UNITS SUB-Q ×2 (08:31→20:12)
[2021-10-18] MEDS: SILVER SULFADIAZINE 1% CR 50 GM JAR (*BKC) 1 APPLIC TOPICAL (08:33)
[2021-10-18] MEDS: SOD HYPOCHLORITE 1/4 STRENGTH 473 ML 1 APPLIC TOPICAL (08:33)
[2021-10-18] MEDS: MUPIROCIN 2% OINT 22 GM TUBE 1 APPLIC TOPICAL (08:33)
--- NOTE | 2021-10-18 08:36 | PM.PNCARD ---
Progress Note: A&P Assessment and Plan (1) Cardiac arrest: Code(s): I46.9 - Cardiac arrest, cause unspecified Status: Acute Assessment and Plan: There is no clear evidence for association with his bradycardia as a cause or contributor. Most likely secondary to hypoxia and or sepsis/septic shock with hypotension. The significance of the fact that he was on PD at the time also must be considered. At this time, most likely explanation respiratory decompensation, worsening pneumonia sepsis/septic shock. He has been weaned off of dopamine at this point. He is off Levophed as of this morning. Will continue to monitor BP. If he becomes significantly bradycardic with hemodynamic instability would recommend restarting the dopamine drip. No plan or indication for transvenous or permanent pacer at this time. Patient is critically ill, prognosis guarded. (2) Acute respiratory failure with hypoxia: Code(s): J96.01 - Acute respiratory failure with hypoxia Status: Acute Assessment and Plan: Remains intubated on mechanical ventilatory support. On IV antibiotics. Per Critical Care. (3) Septic shock: Code(s): A41.9 - Sepsis, unspecified organism; R65.21 - Severe sepsis with septic shock Status: Acute Assessment and Plan: Remains on norepinephrine. On broad-spectrum antibiotics. Management per critical care (4) Bradycardia: Code(s): R00.1 - Bradycardia, unspecified Status: Acute Assessment and Plan: Asymptomatic, chronic. This is indicative of underlying significant conduction system disease. (5) Persistent atrial fibrillation: Code(s): I48.19 - Other persistent atrial fibrillation Status: Acute Assessment and Plan: Atrial fibrillation is not new, chronic as well as his bradycardia. He has close follow-up with his histopathologist at [facility] with discussion regarding lead loose pacemaker implantation in the future. -Continue to avoid AV miles blocking agents. -Remains on systemic anticoagulation (6) Elevated troponin: Code(s): R77.8 - Other specified abnormalities of plasma proteins Status: Acute Assessment and Plan: Type 2 infarction minimal elevation given renal failure, history of CAD, hypertension, hypoxia not secondary to acute coronary syndrome and/or plaque rupture. (7) End-stage renal disease (ESRD): Code(s): N18.6 - End stage renal disease Status: Acute Assessment and Plan: Peritoneal dialysis per Nephrology. (8) Ischemic cardiomyopathy: Code(s): I25.5 - Ischemic cardiomyopathy Status: Acute Assessment and Plan: Stable, chronic heart failure with reduced ejection fraction reasonably compensated. Volume management with Nephrology and peritoneal dialysis. (9) Community acquired pneumonia: Code(s): J18.9 - Pneumonia, unspecified organism Status: Acute Assessment and Plan: Management per primary service with antibiotics as appropriate. Chest x-ray with worsening left-sided infiltrate. CT chest pending. (10) Chronic anticoagulation: Code(s): Z79.01 - intermediate manager (current) use of anticoagulants Status: Acute Assessment and Plan: Continue Eliquis (11) Status post fall: Code(s): Z91.81 - History of falling Status: Acute Assessment and Plan: PT OT eval. Management per primary service. (12) Diminished pulse in upper extremity: Code(s): R09.89 - Other specified symptoms and signs involving the circulatory and respiratory systems Status: Acute Assessment and Plan: Arterial Doppler is unremarkable yesterday Subjective Date/time seen: 10/18/21 08:36 Interval history: 65-year-old man with: History of ischemic cardiomyopathy, chronic atrial fibrillation LV systolic dysfunction and [id number] aortic valve stenosis. Patient admitted here with sepsis had a PEA arrest after which she has be
[2021-10-18] MEDS: DORNASE ALFA INH SOLN 1 MG/ML 2.5 ML AMP 2.5 MG INHALATION ×2 (08:37→20:10)
--- NOTE | 2021-10-18 08:38 | WPDINTPN ---
Progress Note: A&P Assessment and Plan (1) Acute respiratory failure with hypoxia: Code(s): J96.01 - Acute respiratory failure with hypoxia Status: Acute Assessment and Plan: Acute Respiratory failure secondary to cardiac arrest, pneumonia, pulmonary edema, left pleural effusion. Intubated on 10/04/2021 during code blue - Continue full mechanical ventilation support to prevent hypoxemia/hypercarbia and end organ damage. -PCXR reviewed -advance ET tube by 2 cm -patient has been on ASV mode with 35% FiO2 and 8 of PEEP. -off all sedation since 10/09 -10/07/2021: Sputum culture growing E coli, sensitive to cefepime, Zosyn, imipenem and gentamicin. - 10/11 -repeat culture still growing E coli ESBL which is sensitive to imipenem --10/14 DC Vanc, changed Zosyn to imipenem -continue to try to remove fluid possible by PD -continues to have thick secretions from ET tube, on Pulmozyme and bronchodilators -patient tolerated only few hours of PSV 15/8 yesterday. Will try again today - Patient was intubated on 10/04 and today is day 14 on the ventilator. ENT has been consulted and patient is scheduled for tracheostomy today 10/09/2021: CT chest, abdomen, pelvis without contrast 1. Small right and moderate left pleural effusions with collapse of the bilateral lower lobes with additional dependent compressive atelectasis. 2. Cardiomegaly. 3. Nonspecific 2.2 x 1.4 cm anterior mediastinal mass with differential including enlarged lymph node or thymoma. 4. Small volume of ascites with peritoneal dialysis catheter. (2) End-stage renal disease on peritoneal dialysis: Code(s): N18.6 - End stage renal disease; Z99.2 - Dependence on renal dialysis Status: Acute Assessment and Plan: patient is being followed by Nephrology and is currently peritoneal dialysis. -discussed with nephrology. Patient will need a PEG tube, Dr. Combs plans to transition him to hemodialysis. He will discuss with patient's family and also consult surgery for a tunneled dialysis catheter placement (3) Cardiac arrest: Code(s): I46.9 - Cardiac arrest, cause unspecified Status: Acute Assessment and Plan: Its possible patient's cardiac arrest secondary to junctional bradycardia or slow AFib Troponins, although mildly elevated in presence of end-stage renal disease, remained flat EKG showed AFib/ junctional bradycardia with heart rate in 40s -off dopamine 10/12 -continue Levophed to maintain mean arterial pressures > 65 mmHg. Currently at 2 mcg - he may need transvenous pacemaker and I have discussed with Cardiology - cardiology is following - continue Eliquis - 10/09: Discussed with Cardiology, maintain dopamine, once he is more stable will wean dopamine and evaluate -repeat head CT on 10/09: No acute intracranial findings or interval change, mild atrophy and microangiopathy. -patient opens his eyes to name and follows simple commands in all extremities 10/06/2021 Echo: - mild LVH; moderate-severe LV systolic dysfunction, ejection fraction about 30-35% - Moderate-severe aortic stenosis - Moderate pulmonary hypertension, RVSP 54 mmHg (4) Persistent atrial fibrillation: Code(s): I48.19 - Other persistent atrial fibrillation Status: Acute Assessment and Plan: currently in junctional bradycardia - see above Eliquis resumed after tracheostomy (5) Bradycardia: Code(s): R00.1 - Bradycardia, unspecified Status: Chronic Assessment and Plan: see above (6) Pneumonia: Code(s): J18.9 - Pneumonia, unspecified organism Status: Acute Assessment and Plan: patient on the floor was being treated for community-acquired pneumonia antibiotics were broadened after intubation as possible patient may have aspirated 10/03/2021 Blood cultures: Negative Procalcitonin level 6.4 10/08: leukocystosis persists -10/07/2021: Sputum culture -growing E coli, sensitive to cefepime, Zosyn, imip
[2021-10-18 10:55] LABS: Hemoglobin 8.5 g/dL (14.0-18.0); Mean Corpuscular Hemoglobin 31.3 pg (26-34); Mean Corpuscular Volume 91.9 fl (80-100); Mean Platelet Volume 10.4 fl (7.4-10.4); Platelet Count Result 429 k/mm3 (150-375); Red Blood Count 2.72 M/mm3 (4.6-6.20); Red Cell Distribution Width 15.4 % (11.5-14.5)
[2021-10-18 11:09] LABS: Alanine Aminotransferase 32 U/L (4-50); Albumin Level 3.2 g/dL (3.5-5.1); Alkaline Phosphatase 262 U/L (38-126); Anion Gap 15 mmol/L (8-16); Aspartate Amino Transferase 29 U/L (17-59); Bilirubin,Total 0.5 mg/dL (0.2-1.3); Blood Urea Nitrogen 109 mg/dL (9-20); Calcium 8.9 mg/dL (8.4-10.2); Carbon Dioxide 25 mmol/L (22-30); Chloride 89 mmol/L (98-107); Estimated CRCL calculation 12 ml/min; Estimated Glomerular Filt Rate 7; Glucose 155 mg/dL (65-110); Magnesium 2.6 mg/dL (1.6-2.3); Potassium 4.1 mmol/L (3.4-5.0); Sodium 129 mmol/L (137-145)
--- NOTE | 2021-10-18 11:12 | P.PNNP_ITS ---
Progress Note: A&P Assessment and Plan (1) End-stage renal disease (ESRD): Code(s): N18.6 - End stage renal disease Status: Acute Assessment and Plan: * continue CCPD treatment while hospitalized * good ultrafiltration with red and two greens. His blood pressure is still still low. Will change to yellow and two greens. * his blood pressure is still soft. He is on is 7 mics of norepinephrine still. * His swelling is much better. * He is on Nepro tube feeding 60 per hour. * He is getting a tunneled dialysis catheter early next week. (2) Cardiac arrest: Code(s): I46.9 - Cardiac arrest, cause unspecified Status: Acute Assessment and Plan: * etiology not clear * Cardiology following with recommendations noted * he follows some commands * continue supportive care (3) Acute respiratory failure with hypoxia: Code(s): J96.01 - Acute respiratory failure with hypoxia Status: Acute Assessment and Plan: * secondary to cardiac arrest and pneumonia * Minute volume is just above 10. FiO2 40%. * continue ventilator support * completed antibiotic therapy * Has a trach. (4) Hyponatremia: Code(s): E87.1 - Hypo-osmolality and hyponatremia Status: Acute Assessment and Plan: * still low but stable, varying around 130. (5) Hypotension: Code(s): I95.9 - Hypotension, unspecified Status: Acute Assessment and Plan: * blood pressure is low * remains on levophed. Current dose is 7 (6) Bradycardia: Code(s): R00.1 - Bradycardia, unspecified Status: Chronic Assessment and Plan: * apparently a chronic issue at baseline * Heart rate okay off dopamine (7) Anemia: Code(s): D64.9 - Anemia, unspecified Status: Chronic Assessment and Plan: * due to ESRD and possibly acute illness * on Epogen Ten thousand 3 times a week * Hemoglobin is 8.5. Will continue to follow. Subjective Date/time seen: 10/18/21 11:12 Interval history: The patient is being seen for end-stage renal disease. The patient is on the ventilator. He is sedated. On dialysis and tolerating it well. He was seen at 10:00 a.m. Exam Narrative: General: WD/WN male intubatedand on mechanical ventilation Heart: normal S1 and S2; no rub or gallop Lungs: coarse breath sounds Abdomen: obese but soft, nontender, nondistended, positive bowel sounds; PD catheter in place Extremities: Trace to 1+ chronic bilateral edema Skin: chronic venous stasis changes unchanged Objective Data Vital Signs Vital Signs: Vital Signs - 24 hr 10/17/21 12:00 10/17/21 13:40 10/17/21 13:50 Temperature Pulse Rate 71 69 70 Respiratory Rate 17 19 20 Blood Pressure Pulse Oximetry 100 10/17/21 13:52 10/17/21 14:00 10/17/21 16:00 Temperature Pulse Rate 78 70 71 Respiratory Rate Blood Pressure Pulse Oximetry 98 10/17/21 17:23 10/17/21 18:00 10/17/21 19:35 Temperature Pulse Rate 67 71 70 Respiratory Rate 24 H Blood Pressure Pulse Oximetry 98 96 10/17/21 19:55 10/17/21 20:00 10/17/21 20:19 Temperature 36.7 C Pulse Rate 70 70 70 Re
--- NOTE | 2021-10-18 11:12 | PM.PNNEP ---
Progress Note: A&P Assessment and Plan (1) End-stage renal disease (ESRD): Code(s): N18.6 - End stage renal disease Status: Acute Assessment and Plan: continue CCPD treatment while hospitalized good ultrafiltration with red and two greens. His blood pressure is still still low. Will change to yellow and two greens. his blood pressure is still soft. He is on is 7 mics of norepinephrine still. His swelling is much better. He is on Nepro tube feeding 60 per hour. He is getting a tunneled dialysis catheter early next week. (2) Cardiac arrest: Code(s): I46.9 - Cardiac arrest, cause unspecified Status: Acute Assessment and Plan: etiology not clear Cardiology following with recommendations noted he follows some commands continue supportive care (3) Acute respiratory failure with hypoxia: Code(s): J96.01 - Acute respiratory failure with hypoxia Status: Acute Assessment and Plan: secondary to cardiac arrest and pneumonia Minute volume is just above 10. FiO2 40%. continue ventilator support completed antibiotic therapy Has a trach. (4) Hyponatremia: Code(s): E87.1 - Hypo-osmolality and hyponatremia Status: Acute Assessment and Plan: still low but stable, varying around 130. (5) Hypotension: Code(s): I95.9 - Hypotension, unspecified Status: Acute Assessment and Plan: blood pressure is low remains on levophed. Current dose is 7 (6) Bradycardia: Code(s): R00.1 - Bradycardia, unspecified Status: Chronic Assessment and Plan: apparently a chronic issue at baseline Heart rate okay off dopamine (7) Anemia: Code(s): D64.9 - Anemia, unspecified Status: Chronic Assessment and Plan: due to ESRD and possibly acute illness on Epogen Ten thousand 3 times a week Hemoglobin is 8.5. Will continue to follow. Subjective Date/time seen: 10/18/21 11:12 Interval history: The patient is being seen for end-stage renal disease. The patient is on the ventilator. He is sedated. On dialysis and tolerating it well. He was seen at 10:00 a.m. Exam Narrative: General: WD/WN male intubatedand on mechanical ventilation Heart: normal S1 and S2; no rub or gallop Lungs: coarse breath sounds Abdomen: obese but soft, nontender, nondistended, positive bowel sounds; PD catheter in place Extremities: Trace to 1+ chronic bilateral edema Skin: chronic venous stasis changes unchanged Objective Data Vital Signs Vital Signs: Vital Signs - 24 hr 10/17/21 12:00 10/17/21 13:40 10/17/21 13:50 Temperature Pulse Rate 71 69 70 Respiratory Rate 17 19 20 Blood Pressure Pulse Oximetry 100 10/17/21 13:52 10/17/21 14:00 10/17/21 16:00 Temperature Pulse Rate 78 70 71 Respiratory Rate Blood Pressure Pulse Oximetry 98 10/17/21 17:23 10/17/21 18:00 10/17/21 19:35 Temperature Pulse Rate 67 71 70 Respiratory Rate 24 H Blood Pressure Pulse Oximetry 98 96 10/17/21 19:55 10/17/21 20:00 10/17/21 20:19 Temperature 36.7 C Pulse Rate 70 70 70 Respiratory Rate 24 H 18 Blood Pressure 141/87 H 137/66 Pulse Oximetry 96 10/17/21 22:00 10/17/21 23:00 10/18/21 00:00 Temperature 36.8 C Pulse Rate 68 68 70 Respiratory Rate 14 19 Blood Pressure 149/78 H 140/43 L Pulse Oximetry 97 97 98 10/18/21 01:02 10/18/21 01:46 10/18/21 01:56 Temperature Pulse Rate 69 69 Respiratory Rate 24 H 24 H Blood Pressure 140/43 L Pulse Oximetry 97 10/18/21 02:00 10/18/21 03:52 10/18/21 03:59 Temperature 36.9 C Pulse Rate 69 66 Respiratory Rate 20 Blood Pressure 113/62 Pulse Oximetry 100 98 10/18/21 04:00 10/18/21 04:41 10/18/21 05:29 Temperature Pulse Rate 68 68 Respiratory Rate Blood Pressure 117/70 Pulse Oximetry 97 10/18/21 06:00 10/18/21 06:07 10/18/21 06:
[2021-10-18 11:23] LABS: Glucose Point of Care 149 mg/dl (65-105)
[2021-10-18] MEDS: diphenhydrAMINE HCL ELIXIR 12.5 MG/5 ML UDC 50 MG PO (14:07)
[2021-10-18] MEDS: APIXABAN 5 MG TABLET PO ×2 (14:07→20:04)
[2021-10-18 16:33] LABS: Glucose Point of Care 156 mg/dl (65-105)
[2021-10-18] MEDS: ROSUVASTATIN 10 MG TABLET PO (20:05)
[2021-10-18 20:16] LABS: Glucose Point of Care 160 mg/dl (65-105)
[2021-10-19] VITALS (30 sets, daily range): BP systolic 93–142; BP diastolic 49–78; PULSE 51–67; RESP 13–33; TEMP 35.9–37.1; O2SAT 92–98
[2021-10-19] MEDS: HYDROCORTISONE SODIUM SUCCINATE 100 MG/2 ML VIAL IV PUSH ×3 (00:12→16:52)
[2021-10-19 00:22] LABS: Glucose Point of Care 198 mg/dl (65-105)
[2021-10-19] MEDS: IPRATROPIUM BR 0.02% INH SOLN 0.5 MG/2.5 ML VIAL INHALATION ×4 (02:15→19:00)
[2021-10-19] MEDS: ALBUTEROL SULFATE NEB 2.5 MG/0.5 ML INH INHALATION ×4 (02:15→19:00)
[2021-10-19 04:43] LABS: Alveolar/Arterial O2 Gradient 91.2 mmHg; Base Excess ABG -2.1 mEq/l (+/-2.0); Carboxyhemoglobin 0.2 % THb (0-2.0); Fractional Inspired Oxygen 30 %; HCO3 ABG 21.7 mEq/l (22.0-26.0); Methemoglobin ABG 0.1 %THb (0-1.5); Oxygen Content ABG 13.5 %vol (16.0-22.0); Oxygen Saturation ABG 96.6 % (95.0-100.0); PCO2 ABG 33.5 mmHg (35.0-45.0); PO2 ABG 83.3 mmHg (80.0-100.0); PO2 FiO2 Ratio Arterial Blood 2.78 %; Reduced Hemoglobin 4.7 %THb (0-5.0)
[2021-10-19 04:45] LABS: Device VENTILATOR; Site Drawn RIGHT RADIAL
[2021-10-19 04:46] LABS: Arterial Blood Gas PEEP 8 cmH2O; Arterial Blood Gas Vent Mode ASV
[2021-10-19 05:25] LABS: Glucose Point of Care 270 mg/dl (65-105)
[2021-10-19] MEDS: INSULIN ASPART (*BKC) 100 UNITS/ML SUB-Q ×2 (05:33→08:22)
[2021-10-19] MEDS: MIDODRINE HCL 10 MG TABLET FEED TUBE ×3 (05:33→21:18)
[2021-10-19] MEDS: CENTRAL LINE FLUSH 10 ML IV PUSH ×3 (05:34→20:17)
[2021-10-19] MEDS: CALCIUM ACETATE 667 MG TABLET 1334 MG FEED TUBE ×3 (08:03→16:51)
[2021-10-19] MEDS: PANTOPRAZOLE SODIUM IV 40 MG VIAL IV PUSH (08:03)
[2021-10-19] MEDS: allopurinoL 100 MG TABLET PO (08:03)
[2021-10-19] MEDS: diphenhydrAMINE HCL ELIXIR 12.5 MG/5 ML UDC 50 MG PO ×2 (08:03→16:52)
[2021-10-19] MEDS: BRIMONIDINE TARTRATE 0.2% OP SOLN 5 ML BTL 1 DROP EACH EYE ×2 (08:04→20:15)
[2021-10-19] MEDS: DORZOLAMIDE/TIMOLOL OPHTH SOL 10 ML BOTTLE 1 DROP EACH EYE ×2 (08:04→20:16)
[2021-10-19] MEDS: MINERAL OIL/WHITE PETROLATUM OINTMENT 1 APPLIC EACH EYE ×2 (08:04→20:16)
[2021-10-19] MEDS: SOD HYPOCHLORITE 1/4 STRENGTH 473 ML 1 APPLIC TOPICAL (08:05)
[2021-10-19] MEDS: INSULIN GLARGINE (*BKC) 100 UNITS/ML 45 UNITS SUB-Q (08:05)
[2021-10-19] MEDS: MUPIROCIN 2% OINT 22 GM TUBE 1 APPLIC TOPICAL (08:06)
[2021-10-19] MEDS: SILVER SULFADIAZINE 1% CR 50 GM JAR (*BKC) 1 APPLIC TOPICAL (08:06)
--- NOTE | 2021-10-19 08:07 | WPDINTPN ---
Progress Note: A&P Assessment and Plan (1) Acute respiratory failure with hypoxia: Code(s): J96.01 - Acute respiratory failure with hypoxia Status: Acute Assessment and Plan: Acute Respiratory failure secondary to cardiac arrest, pneumonia, pulmonary edema, left pleural effusion. Intubated on 10/04/2021 during code blue - Continue full mechanical ventilation support to prevent hypoxemia/hypercarbia and end organ damage. -PCXR reviewed -patient has been on ASV mode with 35% FiO2 and 8 of PEEP. -off all sedation since 10/09 -10/07/2021: Sputum culture growing E coli, sensitive to cefepime, Zosyn, imipenem and gentamicin. - 10/11 -repeat culture still growing E coli ESBL which is sensitive to imipenem --10/14 DC Vanc, changed Zosyn to imipenem -continue to try to remove fluid possible by PD -patient tolerated only few hours of PSV 16/02 yesterday. Will try again today - Patient was intubated on 10/04 and trached on 10/17 by ENT 10/09/2021: CT chest, abdomen, pelvis without contrast 1. Small right and moderate left pleural effusions with collapse of the bilateral lower lobes with additional dependent compressive atelectasis. 2. Cardiomegaly. 3. Nonspecific 2.2 x 1.4 cm anterior mediastinal mass with differential including enlarged lymph node or thymoma. 4. Small volume of ascites with peritoneal dialysis catheter. (2) End-stage renal disease on peritoneal dialysis: Code(s): N18.6 - End stage renal disease; Z99.2 - Dependence on renal dialysis Status: Acute Assessment and Plan: patient is being followed by Nephrology and is currently peritoneal dialysis. -discussed with nephrology. Patient will need a PEG tube, Dr. Combs plans to transition him to hemodialysis. - surgery has been consulted for tunneled dialysis catheter placement which is scheduled for 10/20 (3) Cardiac arrest: Code(s): I46.9 - Cardiac arrest, cause unspecified Status: Acute Assessment and Plan: Its possible patient's cardiac arrest secondary to junctional bradycardia or slow AFib Troponins, although mildly elevated in presence of end-stage renal disease, remained flat EKG showed AFib/ junctional bradycardia with heart rate in 40s -off dopamine 10/12 - off Levophed now - he may need transvenous pacemaker and I have discussed with Cardiology - cardiology is following - continue Eliquis - 10/09: Discussed with Cardiology, maintain dopamine, once he is more stable will wean dopamine and evaluate -repeat head CT on 10/09: No acute intracranial findings or interval change, mild atrophy and microangiopathy. -patient opens his eyes to name and follows simple commands in all extremities 10/06/2021 Echo: - mild LVH; moderate-severe LV systolic dysfunction, ejection fraction about 30-35% - Moderate-severe aortic stenosis - Moderate pulmonary hypertension, RVSP 54 mmHg (4) Persistent atrial fibrillation: Code(s): I48.19 - Other persistent atrial fibrillation Status: Acute Assessment and Plan: currently in junctional bradycardia - see above Eliquis was resumed after tracheostomy but now on hold for tunnel dialysis catheter placement (5) Bradycardia: Code(s): R00.1 - Bradycardia, unspecified Status: Chronic Assessment and Plan: see above (6) Pneumonia: Code(s): J18.9 - Pneumonia, unspecified organism Status: Acute Assessment and Plan: patient on the floor was being treated for community-acquired pneumonia antibiotics were broadened after intubation as possible patient may have aspirated 10/03/2021 Blood cultures: Negative Procalcitonin level 6.4 10/08: leukocystosis persists -10/07/2021: Sputum culture -growing E coli, sensitive to cefepime, Zosyn, imipenem and gentamicin - 10/11 -repeat culture still growing E coli ESBL sensitive to imipenem -10/14 DC vanc, changed Zosyn to imipenem - increase in WBC likely secondary to steroids as patient continues t
[2021-10-19 08:16] LABS: Hematocrit 26.6 % (42.0-52.0); Hemoglobin 8.6 g/dL (14.0-18.0); Mean Corpuscular HGB Conc 32.3 g/dl (32-36); Mean Corpuscular Hemoglobin 30.9 pg (26-34); Mean Corpuscular Volume 95.7 fl (80-100); Mean Platelet Volume 11.5 fl (7.4-10.4); Platelet Count Result 473 k/mm3 (150-375); Red Blood Count 2.78 M/mm3 (4.6-6.20); Red Cell Distribution Width 15.7 % (11.5-14.5); White Blood Count 26.6 K/mm3 (4.5-10.0)
[2021-10-19 08:22] LABS: Glucose Point of Care 267 mg/dl (65-105)
[2021-10-19] MEDS: DORNASE ALFA INH SOLN 1 MG/ML 2.5 ML AMP 2.5 MG INHALATION ×2 (08:25→19:00)
[2021-10-19 08:29] LABS: Alanine Aminotransferase 21 U/L (4-50); Albumin Level 3.6 g/dL (3.5-5.1); Alkaline Phosphatase 269 U/L (38-126); Anion Gap 18 mmol/L (8-16); Aspartate Amino Transferase 28 U/L (17-59); Bilirubin,Total 0.6 mg/dL (0.2-1.3); Blood Urea Nitrogen 116 mg/dL (9-20); Calcium 9.1 mg/dL (8.4-10.2); Carbon Dioxide 23 mmol/L (22-30); Chloride 89 mmol/L (98-107); Estimated CRCL calculation 12 ml/min; Estimated Glomerular Filt Rate 7; Glucose 245 mg/dL (65-110); Magnesium 2.7 mg/dL (1.6-2.3); Phosphorus 7.2 mg/dL (2.5-4.5); Potassium 4.1 mmol/L (3.4-5.0); Sodium 130 mmol/L (137-145)
--- NOTE | 2021-10-19 09:21 | P.PNNP_ITS ---
Progress Note: A&P Assessment and Plan (1) End-stage renal disease (ESRD): Code(s): N18.6 - End stage renal disease Status: Acute Assessment and Plan: * continue CCPD treatment while hospitalized * Will change to all greens today. * his blood pressure is improved. Currently 128 on no pressors. * His swelling is much better. * He is on Nepro tube feeding 60 per hour. * He is getting a tunneled dialysis catheter early this week. Then will switch him over to hemodialysis. * His BUN is on the rise. Possibly higher catabolic state? (2) Cardiac arrest: Code(s): I46.9 - Cardiac arrest, cause unspecified Status: Acute Assessment and Plan: * etiology not clear * Cardiology following with recommendations noted * he follows some commands off sedatives. * continue supportive care (3) Acute respiratory failure with hypoxia: Code(s): J96.01 - Acute respiratory failure with hypoxia Status: Acute Assessment and Plan: * secondary to cardiac arrest and pneumonia * FiO2 only 30% with a PEEP of 8 * Has a trach. (4) Hyponatremia: Code(s): E87.1 - Hypo-osmolality and hyponatremia Status: Acute Assessment and Plan: * still low but stable, varying around 130. (5) Hypotension: Code(s): I95.9 - Hypotension, unspecified Status: Acute Assessment and Plan: * blood pressure is low * remains on levophed. Current dose is 7 (6) Bradycardia: Code(s): R00.1 - Bradycardia, unspecified Status: Chronic Assessment and Plan: * apparently a chronic issue at baseline * Heart rate okay off dopamine (7) Anemia: Code(s): D64.9 - Anemia, unspecified Status: Chronic Assessment and Plan: * due to ESRD and possibly acute illness * on Epogen Ten thousand 3 times a week * Hemoglobin is 8.5. Will continue to follow. Subjective Date/time seen: 10/19/21 09:21 Interval history: The patient is being seen for end-stage renal disease. The patient is on the ventilator He is on no more pressors. He looks comfortable Exam Narrative: General: WD/WN male intubatedand on mechanical ventilation Heart: normal S1 and S2; no rub Lungs: coarse breath sounds bilaterally Abdomen: obese but soft, nontender, nondistended, positive bowel sounds; PD catheter in place Extremities: Trace to 1+ chronic bilateral edema Skin: No acute rash Objective Data Vital Signs Vital Signs: Vital Signs - 24 hr 10/18/21 10:00 10/18/21 11:27 10/18/21 12:00 Temperature 36.8 C Pulse Rate 62 61 61 Respiratory Rate 22 H 23 H Blood Pressure 85/55 L 92/68 L Pulse Oximetry 93 98 96 10/18/21 13:48 10/18/21 14:00 10/18/21 14:05 Temperature Pulse Rate 61 64 68 Respiratory Rate 23 H 24 H 22 H Blood Pressure 102/73 Pulse Oximetry 90 10/18/21 14:28 10/18/21 16:00 10/18/21 16:59 Temperature 36.6 C Pulse Rate 64 67 65 Respiratory Rate 16 Blood Pressure 104/67 Pulse Oximetry 96 95 97 10/18/21 18:00 10/18/21 20:00 10/18/21 20:12 Temperature 37.1 C Pulse Rate 69 70 65 Respiratory Rate 23 H 19 Blood Pressure 95/50 L 97/47 L
--- NOTE | 2021-10-19 09:21 | PM.PNNEP ---
Progress Note: A&P Assessment and Plan (1) End-stage renal disease (ESRD): Code(s): N18.6 - End stage renal disease Status: Acute Assessment and Plan: continue CCPD treatment while hospitalized Will change to all greens today. his blood pressure is improved. Currently 128 on no pressors. His swelling is much better. He is on Nepro tube feeding 60 per hour. He is getting a tunneled dialysis catheter early this week. Then will switch him over to hemodialysis. His BUN is on the rise. Possibly higher catabolic state? (2) Cardiac arrest: Code(s): I46.9 - Cardiac arrest, cause unspecified Status: Acute Assessment and Plan: etiology not clear Cardiology following with recommendations noted he follows some commands off sedatives. continue supportive care (3) Acute respiratory failure with hypoxia: Code(s): J96.01 - Acute respiratory failure with hypoxia Status: Acute Assessment and Plan: secondary to cardiac arrest and pneumonia FiO2 only 30% with a PEEP of 8 Has a trach. (4) Hyponatremia: Code(s): E87.1 - Hypo-osmolality and hyponatremia Status: Acute Assessment and Plan: still low but stable, varying around 130. (5) Hypotension: Code(s): I95.9 - Hypotension, unspecified Status: Acute Assessment and Plan: blood pressure is low remains on levophed. Current dose is 7 (6) Bradycardia: Code(s): R00.1 - Bradycardia, unspecified Status: Chronic Assessment and Plan: apparently a chronic issue at baseline Heart rate okay off dopamine (7) Anemia: Code(s): D64.9 - Anemia, unspecified Status: Chronic Assessment and Plan: due to ESRD and possibly acute illness on Epogen Ten thousand 3 times a week Hemoglobin is 8.5. Will continue to follow. Subjective Date/time seen: 10/19/21 09:21 Interval history: The patient is being seen for end-stage renal disease. The patient is on the ventilator He is on no more pressors. He looks comfortable Exam Narrative: General: WD/WN male intubatedand on mechanical ventilation Heart: normal S1 and S2; no rub Lungs: coarse breath sounds bilaterally Abdomen: obese but soft, nontender, nondistended, positive bowel sounds; PD catheter in place Extremities: Trace to 1+ chronic bilateral edema Skin: No acute rash Objective Data Vital Signs Vital Signs: Vital Signs - 24 hr 10/18/21 10:00 10/18/21 11:27 10/18/21 12:00 Temperature 36.8 C Pulse Rate 62 61 61 Respiratory Rate 22 H 23 H Blood Pressure 85/55 L 92/68 L Pulse Oximetry 93 98 96 10/18/21 13:48 10/18/21 14:00 10/18/21 14:05 Temperature Pulse Rate 61 64 68 Respiratory Rate 23 H 24 H 22 H Blood Pressure 102/73 Pulse Oximetry 90 10/18/21 14:28 10/18/21 16:00 10/18/21 16:59 Temperature 36.6 C Pulse Rate 64 67 65 Respiratory Rate 16 Blood Pressure 104/67 Pulse Oximetry 96 95 97 10/18/21 18:00 10/18/21 20:00 10/18/21 20:12 Temperature 37.1 C Pulse Rate 69 70 65 Respiratory Rate 23 H 19 Blood Pressure 95/50 L 97/47 L Pulse Oximetry 96 98 97 10/18/21 20:15 10/18/21 20:30 10/18/21 22:00 Temperature Pulse Rate 68 65 66 Respiratory Rate 26 H 29 H 23 H Blood Pressure 86/63 L Pulse Oximetry 95 10/18/21 23:00 10/19/21 00:00 10/19/21 02:00 Temperature 37.1 C Pulse Rate 64 67 65 Respiratory Rate 26 H 14 Blood Pressure 106/49 L 113/59 L Pulse Oximetry 97 97 95 10/19/21 02:10 10/19/21 02:15 10/19/21 02:30 Temperature Pulse Rate 64 63 65 Respiratory Rate 33 H 26 H Blood Pressure Pulse Oximetry 97 10/19/21 03:44 10/19/21 03:46 10/19/21 04:00 Temperature 37.1 C Pulse Rate 66 64 Respiratory Rate 23 H Blood Pressure 121/76 Pulse Oximetry 96 94 10/19/21 05:12 10/19/21 06:00 10/19/21 08:26 Temperature Pulse Rate 65 61 63 Respira
--- NOTE | 2021-10-19 09:55 | PM.IMPN ---
Progress Note: A&P Assessment and Plan (1) Acute hyperkalemia: Code(s): E87.5 - Hyperkalemia Status: Acute Assessment and Plan: Nephrology consult patient receive Lokelma 10 g x1. resolved . Continue peritoneal dialysis nephrology consulted (2) Chronic kidney failure: Code(s): N18.9 - Chronic kidney disease, unspecified Status: Acute Assessment and Plan: Nephrology has been consult and do appreciate further recommendations. defer all recommendations for dialysis orders to Nephrology. (3) Bradycardia: Code(s): R00.1 - Bradycardia, unspecified Status: Chronic Assessment and Plan: Patient has chronic atrial fibrillation with a slow ventricular rate and is asymptomatic. It has been discussed that patient may need a pacemaker/ICD placed but at this time patient's requirements analyst at [facility] is not decided to place another device. Patient to patient had cardiac arrest cardiology following currently in ICU Status post Dopamine drip 10/06/21 Cardiology following (4) Community acquired pneumonia: Code(s): J18.9 - Pneumonia, unspecified organism Status: Acute Assessment and Plan: Patient's CT scan shows a left pleural effusion with left infiltrates. Continue IV antibiotic. CT scan as below 1. Small right and large left pleural effusions. 2. Acute fractures of left second-sixth ribs. 3. 3.8 x 1.7 cm anterior mediastinal mass, increased from 1.9 x 1.6 cm on 10/03/21. This finding may be a combination of hematoma and a pre-existing mass such as thymoma or lymphoma. Repeat CT scan of the chest 10/07/2021 5. Small volume of ascites with peritoneal dialysis catheter (5) Status post fall: Code(s): Z91.81 - History of falling Status: Acute Assessment and Plan: PT OT evaluation (6) Acute respiratory failure with hypoxia: Code(s): J96.01 - Acute respiratory failure with hypoxia Status: Acute Assessment and Plan: Secondary to cardiac arrest on 10/04/2021 Status post CPR intubation admission to the ICU Probably multifactorial secondary to pneumonia pulmonary edema and pleural effusion May need aspiration of left pleural effusion Sputum culture grows E coli (7) Abnormal CT scan, chest: Code(s): R93.89 - Abnormal findings on diagnostic imaging of other specified body structures Status: Acute Assessment and Plan: 1. Small right and large left pleural effusions. Monitor 2. Acute fractures of left second-sixth ribs. Pain control 3. 3.8 x 1.7 cm anterior mediastinal mass, increased from 1.9 x 1.6 cm on 10/03/21. This finding may be a combination of hematoma and a pre-existing mass such as thymoma or lymphoma. Follow-up with PCP as outpatient Subjective Date/time seen: 10/19/21 09:55 Interval history: Narrative: Mr. Gomez is a 65-year-old gentleman who presented to emergency room after tripping over the last step of his stairs and fell and struck his knees and his head. Patient states he only reason he came to the emergency room was secondary to the fact that he is on Eliquis and he was worried that he may have bleeding in his brain. Patient denies any loss of conscious, lightheadedness, dizziness, syncopal, or near syncopal episodes. Patient denies any chest discomfort, shortness breath, or palpitations prior to this episode. Patient denies any abdominal pain, nausea, vomiting, constipation, or diarrhea. Patient states he is a peritoneal dialysis patient and recently they have been trying to remove excess fluid from him and they have been using a new dialysis state. Upon evaluation in emergency room patient was noted to be bradycardic and have an elevated potassium. Of patient has episodes of bradycardia patient also has recent history of peritonitis completed course of antibiotics and still has lower extremity ulcer Patient has history of AICD which was removed due to infection, per patient there was plan to for possibl
--- NOTE | 2021-10-19 09:59 | PM.PNCARD ---
Progress Note: A&P Assessment and Plan (1) Cardiac arrest: Code(s): I46.9 - Cardiac arrest, cause unspecified Status: Acute Assessment and Plan: There is no clear evidence for association with his bradycardia as a cause or contributor. Most likely secondary to hypoxia and or sepsis/septic shock with hypotension. The significance of the fact that he was on PD at the time also must be considered. At this time, most likely explanation respiratory decompensation, worsening pneumonia sepsis/septic shock. He has been weaned off of dopamine at this point. Remains off Levophed. Will continue to monitor BP. If he becomes significantly bradycardic with hemodynamic instability would recommend restarting the dopamine drip. No plan or indication for transvenous or permanent pacer at this time. Patient is critically ill, prognosis guarded. (2) Acute respiratory failure with hypoxia: Code(s): J96.01 - Acute respiratory failure with hypoxia Status: Acute Assessment and Plan: Remains intubated on mechanical ventilatory support. On IV antibiotics. Per Critical Care. (3) Septic shock: Code(s): A41.9 - Sepsis, unspecified organism; R65.21 - Severe sepsis with septic shock Status: Acute Assessment and Plan: Remains on norepinephrine. On broad-spectrum antibiotics. Management per critical care (4) Bradycardia: Code(s): R00.1 - Bradycardia, unspecified Status: Acute Assessment and Plan: Asymptomatic, chronic. This is indicative of underlying significant conduction system disease. (5) Persistent atrial fibrillation: Code(s): I48.19 - Other persistent atrial fibrillation Status: Acute Assessment and Plan: Atrial fibrillation is not new, chronic as well as his bradycardia. He has close follow-up with his dishwashing machine operator at [facility] with discussion regarding lead loose pacemaker implantation in the future. -Continue to avoid AV miles blocking agents. -Remains on systemic anticoagulation (6) Elevated troponin: Code(s): R77.8 - Other specified abnormalities of plasma proteins Status: Acute Assessment and Plan: Type 2 infarction minimal elevation given renal failure, history of CAD, hypertension, hypoxia not secondary to acute coronary syndrome and/or plaque rupture. (7) End-stage renal disease (ESRD): Code(s): N18.6 - End stage renal disease Status: Acute Assessment and Plan: Peritoneal dialysis per Nephrology. (8) Ischemic cardiomyopathy: Code(s): I25.5 - Ischemic cardiomyopathy Status: Acute Assessment and Plan: Stable, chronic heart failure with reduced ejection fraction reasonably compensated. Volume management with Nephrology and peritoneal dialysis. (9) Community acquired pneumonia: Code(s): J18.9 - Pneumonia, unspecified organism Status: Acute Assessment and Plan: Management per primary service with antibiotics as appropriate. Chest x-ray with worsening left-sided infiltrate. CT chest pending. (10) Chronic anticoagulation: Code(s): Z79.01 - adjunct faculty for medical terminology (current) use of anticoagulants Status: Acute Assessment and Plan: Continue Eliquis (11) Status post fall: Code(s): Z91.81 - History of falling Status: Acute Assessment and Plan: PT OT eval. Management per primary service. (12) Diminished pulse in upper extremity: Code(s): R09.89 - Other specified symptoms and signs involving the circulatory and respiratory systems Status: Acute Assessment and Plan: Arterial Doppler is unremarkable Subjective Date/time seen: 10/19/21 09:59 Interval history: 65-year-old man with: History of ischemic cardiomyopathy, chronic atrial fibrillation LV systolic dysfunction and [id number] aortic valve stenosis. Patient admitted here with sepsis had a PEA arrest after which she has been placed in the ICU. Elisabeth
[2021-10-19 12:03] LABS: Glucose Point of Care 139 mg/dl (65-105)
[2021-10-19 18:50] LABS: Glucose Point of Care 106 mg/dl (65-105)
[2021-10-19] MEDS: ROSUVASTATIN 10 MG TABLET PO (20:16)
[2021-10-19 22:13] LABS: Glucose Point of Care 168 mg/dl (65-105)
[2021-10-19 23:32] LABS: Glucose Point of Care 240 mg/dl (65-105)
[2021-10-20] VITALS (30 sets, daily range): BP systolic 93–127; BP diastolic 57–77; PULSE 55–64; RESP 18–27; TEMP 36.7–37.3; O2SAT 91–99
[2021-10-20] MEDS: INSULIN ASPART (*BKC) 100 UNITS/ML SUB-Q (00:07)
[2021-10-20] MEDS: HYDROCORTISONE SODIUM SUCCINATE 100 MG/2 ML VIAL IV PUSH ×3 (00:08→18:44)
[2021-10-20] MEDS: ALBUTEROL SULFATE NEB 2.5 MG/0.5 ML INH INHALATION ×4 (02:10→20:00)
[2021-10-20] MEDS: IPRATROPIUM BR 0.02% INH SOLN 0.5 MG/2.5 ML VIAL INHALATION ×4 (02:10→20:00)
[2021-10-20 04:44] LABS: Alveolar/Arterial O2 Gradient 128.3 mmHg; Carboxyhemoglobin 0.3 % THb (0-2.0); Fractional Inspired Oxygen 35 %; HCO3 ABG 23.1 mEq/l (22.0-26.0); Methemoglobin ABG 0.1 %THb (0-1.5); Oxygen Content ABG 15.6 %vol (16.0-22.0); Oxygen Saturation ABG 96.9 % (95.0-100.0); Oxyhemoglobin 95.7 % THb (90.0-100.0); PCO2 ABG 32.6 mmHg (35.0-45.0); PO2 ABG 83.4 mmHg (80.0-100.0); PO2 FiO2 Ratio Arterial Blood 2.38 %; Reduced Hemoglobin 3.9 %THb (0-5.0); Total Hemoglobin 11.5 g/dL (12.0-18.0); pH ABG 7.469 (7.350-7.450)
[2021-10-20 05:05] LABS: Device VENTILATOR; Modified Allen's Test Pass; Site Drawn RIGHT RADIAL
[2021-10-20 05:06] LABS: Arterial Blood Gas PEEP 8 cmH2O; Arterial Blood Gas Vent Mode ASV
[2021-10-20] MEDS: MIDODRINE HCL 10 MG TABLET FEED TUBE ×3 (06:07→21:17)
[2021-10-20] MEDS: CENTRAL LINE FLUSH 10 ML IV PUSH ×3 (06:08→21:17)
[2021-10-20 06:12] LABS: Glucose Point of Care 185 mg/dl (65-105)
[2021-10-20] MEDS: DORNASE ALFA INH SOLN 1 MG/ML 2.5 ML AMP 2.5 MG INHALATION ×2 (08:20→20:00)
[2021-10-20] MEDS: DORZOLAMIDE/TIMOLOL OPHTH SOL 10 ML BOTTLE 1 DROP EACH EYE ×2 (09:07→20:11)
[2021-10-20] MEDS: CALCIUM ACETATE 667 MG TABLET 1334 MG FEED TUBE ×3 (09:07→18:44)
[2021-10-20] MEDS: BRIMONIDINE TARTRATE 0.2% OP SOLN 5 ML BTL 1 DROP EACH EYE ×2 (09:07→20:11)
[2021-10-20] MEDS: allopurinoL 100 MG TABLET PO (09:07)
[2021-10-20] MEDS: PANTOPRAZOLE SODIUM IV 40 MG VIAL IV PUSH (09:10)
[2021-10-20] MEDS: MINERAL OIL/WHITE PETROLATUM OINTMENT 1 APPLIC EACH EYE ×2 (09:10→20:12)
[2021-10-20] MEDS: SOD HYPOCHLORITE 1/4 STRENGTH 473 ML 1 APPLIC TOPICAL (09:11)
[2021-10-20] MEDS: SILVER SULFADIAZINE 1% CR 50 GM JAR (*BKC) 1 APPLIC TOPICAL (09:11)
[2021-10-20] MEDS: MUPIROCIN 2% OINT 22 GM TUBE 1 APPLIC TOPICAL (09:12)
--- NOTE | 2021-10-20 09:21 | PM.PNCARD ---
Progress Note: A&P Assessment and Plan (1) Cardiac arrest: Code(s): I46.9 - Cardiac arrest, cause unspecified Status: Acute Assessment and Plan: There is no clear evidence for association with his bradycardia as a cause or contributor. Appears secondary to hypoxia and or sepsis/septic shock with hypotension. The significance of the fact that he was on PD at the time also must be considered. At this time, most probable explanation respiratory decompensation, worsening pneumonia, and sepsis/septic shock. Remains off Dopamine and Levophed, but on Midodrine. If he becomes hemodynamically unstable and/or significantly bradycardic may restart dopamine. -No plan or indication for transvenous or permanent pacer at this time. -Avoid AV miles blocking agents. Patient is critically ill, prognosis guarded. (2) Acute respiratory failure with hypoxia: Code(s): J96.01 - Acute respiratory failure with hypoxia Status: Acute Assessment and Plan: Remains on mechanical ventilatory support via Trach. Remains on IV antibiotics. Management per Primary Service and Critical Care. (3) Septic shock: Code(s): A41.9 - Sepsis, unspecified organism; R65.21 - Severe sepsis with septic shock Status: Acute Assessment and Plan: Essentially resolved, off pressors. Remains on Midodrine 10mg q8hr per tube. On broad-spectrum antibiotics. Management per critical care. BP stable. (4) Bradycardia: Code(s): R00.1 - Bradycardia, unspecified Status: Acute Assessment and Plan: Asymptomatic, chronic, and indicative of underlying significant conduction system disease. (5) Persistent atrial fibrillation: Code(s): I48.19 - Other persistent atrial fibrillation Status: Acute Assessment and Plan: Atrial fibrillation and with intermittent slow ventricular response is chronic. He has close follow-up with his Auditor Appraiser at [facility] with discussions regarding leadless pacemaker implantation in the future. -Continue to avoid AV miles blocking agents. -Remains on systemic anticoagulation with Eliquis 5mg BID, on hold currently for tunneled HD catheter placement today. Resume post procedure for CVA risk reduction. (6) Elevated troponin: Code(s): R77.8 - Other specified abnormalities of plasma proteins Status: Acute Assessment and Plan: Type 2 infarction minimal elevation given renal failure, history of CAD, hypertension, hypoxia not secondary to acute coronary syndrome and/or plaque rupture. (7) End-stage renal disease (ESRD): Code(s): N18.6 - End stage renal disease Status: Acute Assessment and Plan: Peritoneal dialysis per Nephrology although transition to hemodialysis once tunneled catheter placement performed. (8) Ischemic cardiomyopathy: Code(s): I25.5 - Ischemic cardiomyopathy Status: Acute Assessment and Plan: Stable, chronic heart failure with reduced ejection fraction reasonably compensated EF 30%. Volume management with Nephrology and dialysis. (9) Community acquired pneumonia: Code(s): J18.9 - Pneumonia, unspecified organism Status: Acute Assessment and Plan: Management per primary service with antibiotics as appropriate. Left-sided infiltrate. Sputum cultures + E. Coli from 10/11/21. Chest x-ray slight worsening left-sided airspace opacities. (10) Chronic anticoagulation: Code(s): Z79.01 - exterminator (current) use of anticoagulants Status: Acute Assessment and Plan: Continue Eliquis Subjective Date/time seen: Date of service: 10/20/21 09:21 Interval history: 65-year-old man seen in follow-up h/o ischemic cardiomyopathy, chronic atrial fibrillation LV systolic dysfunction and [id number] aortic valve stenosis. Patient admitted here with sepsis had a PEA arrest after which she has been placed in the ICU. Patient is still on ventilator support via Trach. No
--- NOTE | 2021-10-20 09:23 | ECG_ITS ---
Measurements Intervals [place] Rate: 57 P: 208 NV: 101 QRS: -79 QRSD: 129 T: 120 QT: 453 QTc: 443 Interpretive Statements ATRIAL FIBRILLATION WITH SLOW VENTRICULAR RESPONSE RIGHT BUNDLE BRANCH BLOCK ANTERIOR MYOCARDIAL INFARCTION , OF INDETERMINATE AGE ABNORMAL ECG COMPARED TO ECG 10/05/2021 08:23:18 NO SIGNIFICANT CHANGE Electronically Signed On 10-20-2021 11:39:56 CDT by Claudio Jaimes M.D.
[2021-10-20 09:59] LABS: Glucose Point of Care 98 mg/dl (65-105)
[2021-10-20 09:59] LABS: Glucose Point of Care 76 mg/dl (65-105)
--- NOTE | 2021-10-20 10:35 | WPDINTPN ---
Progress Note: A&P Assessment and Plan (1) Acute respiratory failure with hypoxia: Code(s): J96.01 - Acute respiratory failure with hypoxia Status: Acute Assessment and Plan: Acute Respiratory failure secondary to cardiac arrest, pneumonia, pulmonary edema, left pleural effusion. Intubated on 10/04/2021 during code blue - Continue full mechanical ventilation support to prevent hypoxemia/hypercarbia and end organ damage. -most recent PCXR reviewed -patient has been on ASV mode with 35% FiO2 and 8 of PEEP. -off all sedation since 10/09 -10/07/2021: Sputum culture growing E coli, sensitive to cefepime, Zosyn, imipenem and gentamicin. - 10/11 -repeat culture still growing E coli ESBL which is sensitive to imipenem --10/14 DC Vanc, changed Zosyn to imipenem -patient tolerated only few hours of PSV 16/02 yesterday. Will try again later today - Patient was intubated on 10/04 and trached on 10/17 by ENT 10/09/2021: CT chest, abdomen, pelvis without contrast 1. Small right and moderate left pleural effusions with collapse of the bilateral lower lobes with additional dependent compressive atelectasis. 2. Cardiomegaly. 3. Nonspecific 2.2 x 1.4 cm anterior mediastinal mass with differential including enlarged lymph node or thymoma. 4. Small volume of ascites with peritoneal dialysis catheter. (2) End-stage renal disease on peritoneal dialysis: Code(s): N18.6 - End stage renal disease; Z99.2 - Dependence on renal dialysis Status: Acute Assessment and Plan: patient is being followed by Nephrology and is currently peritoneal dialysis. -discussed with nephrology. Patient will need a PEG tube, Dr. Combs plans to transition him to hemodialysis. - surgery has been consulted for tunneled dialysis catheter placement which is scheduled for later today (3) Cardiac arrest: Code(s): I46.9 - Cardiac arrest, cause unspecified Status: Acute Assessment and Plan: Its possible patient's cardiac arrest secondary to junctional bradycardia or slow AFib Troponins, although mildly elevated in presence of end-stage renal disease, remained flat EKG showed AFib/ junctional bradycardia with heart rate in 40s -off dopamine 10/12 - off Levophed 10/18 - he may need transvenous pacemaker and I have discussed with Cardiology - cardiology is following - continue Eliquis - 10/09: Discussed with Cardiology, maintain dopamine, once he is more stable will wean dopamine and evaluate -repeat head CT on 10/09: No acute intracranial findings or interval change, mild atrophy and microangiopathy. -patient opens his eyes to name and follows simple commands in all extremities 10/06/2021 Echo: - mild LVH; moderate-severe LV systolic dysfunction, ejection fraction about 30-35% - Moderate-severe aortic stenosis - Moderate pulmonary hypertension, RVSP 54 mmHg (4) Persistent atrial fibrillation: Code(s): I48.19 - Other persistent atrial fibrillation Status: Acute Assessment and Plan: currently in junctional bradycardia - see above Eliquis was resumed after tracheostomy but now on hold for tunnel dialysis catheter placement (5) Bradycardia: Code(s): R00.1 - Bradycardia, unspecified Status: Chronic Assessment and Plan: see above (6) Pneumonia: Code(s): J18.9 - Pneumonia, unspecified organism Status: Acute Assessment and Plan: patient on the floor was being treated for community-acquired pneumonia antibiotics were broadened after intubation as possible patient may have aspirated 10/03/2021 Blood cultures: Negative Procalcitonin level 6.4 10/08: leukocystosis persists -10/07/2021: Sputum culture -growing E coli, sensitive to cefepime, Zosyn, imipenem and gentamicin - 10/11 -repeat culture still growing E coli ESBL sensitive to imipenem -10/14 DC vanc, changed Zosyn to imipenem - increase in WBC likely secondary to steroids as patient continues to be afebrile and hemod
--- NOTE | 2021-10-20 11:00 | PM.PNNEP ---
Progress Note: A&P Assessment and Plan (1) End-stage renal disease (ESRD): Code(s): N18.6 - End stage renal disease Status: Acute Assessment and Plan: continue CCPD treatment tonight. all greens tonight Tunneled dialysis catheter to go in this afternoon. Will start hemodialysis tomorrow or Wednesday depending on his PEG tube. (2) Cardiac arrest: Code(s): I46.9 - Cardiac arrest, cause unspecified Status: Acute Assessment and Plan: Cardiology on the case (3) Acute respiratory failure with hypoxia: Code(s): J96.01 - Acute respiratory failure with hypoxia Status: Acute Assessment and Plan: He is on the ventilato He has a trach (4) Hyponatremia: Code(s): E87.1 - Hypo-osmolality and hyponatremia Status: Acute Assessment and Plan: still low but stable, varying around 130. (5) Hypotension: Code(s): I95.9 - Hypotension, unspecified Status: Acute Assessment and Plan: Blood pressure doing better off pressors. (6) Bradycardia: Code(s): R00.1 - Bradycardia, unspecified Status: Chronic Assessment and Plan: Doing well (7) Anemia: Code(s): D64.9 - Anemia, unspecified Status: Chronic Assessment and Plan: due to ESRD and possibly acute illness on Epogen Ten thousand 3 times a week Check hemoglobin tomorrow Subjective Date/time seen: 10/20/21 11:00 Interval history: The patient is being seen for end-stage renal disease. The patient is on the ventilator He wakens when I call his name and nods his head yes and no to questions. He denies shortness of breath or chest pain. Exam Narrative: General: WD/WN male intubatedand on mechanical ventilation Heart: normal S1 and S2; no rub or gallop Lungs: coarse breath sounds bilaterally Abdomen: obese but soft, nontender, nondistended, positive bowel sounds; PD catheter in place Extremities: Trace to 1+ chronic bilateral edema Skin: No acute rash or subQ nodules Objective Data Vital Signs Vital Signs: Vital Signs - 24 hr 10/19/21 12:00 10/19/21 13:25 10/19/21 13:27 Temperature 36.6 C Pulse Rate 59 L 58 L 61 Respiratory Rate 16 18 Blood Pressure 93/52 L Pulse Oximetry 95 94 10/19/21 14:00 10/19/21 16:00 10/19/21 18:00 Temperature 36.8 C Pulse Rate 56 L 54 L 60 Respiratory Rate 13 18 20 Blood Pressure 96/62 L 104/61 118/71 Pulse Oximetry 94 93 95 10/19/21 18:07 10/19/21 19:00 10/19/21 19:20 Temperature Pulse Rate 61 54 L 61 Respiratory Rate 16 19 Blood Pressure Pulse Oximetry 95 92 10/19/21 19:43 10/19/21 20:00 10/19/21 22:00 Temperature 36.7 C Pulse Rate 62 60 57 L Respiratory Rate 20 20 Blood Pressure 142/75 H 110/78 Pulse Oximetry 95 95 10/19/21 22:50 10/20/21 00:00 10/20/21 02:00 Temperature 37.0 C Pulse Rate 51 L 61 62 Respiratory Rate 18 20 Blood Pressure 109/71 97/59 L Pulse Oximetry 95 95 95 10/20/21 02:10 10/20/21 02:26 10/20/21 03:54 Temperature Pulse Rate 60 58 L 62 Respiratory Rate 21 H 20 18 Blood Pressure Pulse Oximetry 97 95 10/20/21 04:00 10/20/21 04:33 10/20/21 06:00 Temperature 37.0 C Pulse Rate 61 56 L 62 Respiratory Rate 18 20 Blood Pressure 106/72 96/59 L Pulse Oximetry 95 97 95 10/20/21 08:00 10/20/21 08:03 10/20/21 08:15 Temperature 36.9 C 37.0 C Pulse Rate 60 62 62 Respiratory Rate 20 20 19 Blood Pressure 101/57 L 96/59 L Pulse Oximetry 97 10/20/21 08:21 10/20/21 08:22 Temperature Pulse Rate 61 64 Respiratory Rate 20 Blood Pressure Pulse Oximetry 97 Intake/Output Intake/Output: Intake & Output 10/17/21 10/18/21 10/19/21 10/20/21 23:59 23:59 23:59 23:59 Intake Total 1866 1432 1571 400 Output Total 19043 417 1220 Balance -39 -591 2754 -580 Meds/Results Medications: Active Medications Generic Name Dose Route Start Last Admin Trade Name Andrei
--- NOTE | 2021-10-20 11:05 | PCFNICU ---
ICU Rounding Note: Pt current nutrition is NPO. Last recorded weight is 120.9 kg-stable Bowel Motility:+BM reported 10/20 Labs Reviewed:No new labs to report Meds Noted:Phoslo, Atrovent, Midodrine,Protonix Skin: Right foot/left lower leg-venous status ulcers. Additional Notes: Patient currently NPO for tunneled catheter placement today. Plans for restart tube feedings after procedure of Nepro at 60 ml/hr. Free water flush 30 ml q 4 hours. Agree with diet orders. Following daily in ICU rounds. Will be reassessing every Wednesday and Wednesday.
[2021-10-20] MEDS: DEXTROSE 10% 1,000 ML 25 ML IV CONT (11:47)
--- NOTE | 2021-10-20 12:19 | WPDGIPROGNO ---
Progress Note: A&P Assessment and Plan (1) Ventilator dependence: Code(s): Z99.11 - Dependence on respirator [ventilator] status Status: Acute Assessment and Plan: Patient ventilator dependent. Now with tracheostomy. Peg tube is been requested but will need to be deferred until he no longer receives peritoneal dialysis. I understand hemodialysis to start after vascular access obtained today. Will plan PEG tube later this week after peritoneal fluid has lessened to allow healing of had to adequately. Perhaps PEG tube on Wednesday or . (2) Mediastinal mass: Code(s): J98.59 - Other diseases of mediastinum, not elsewhere classified Status: Acute (3) End-stage renal disease on peritoneal dialysis: Code(s): N18.6 - End stage renal disease; Z99.2 - Dependence on renal dialysis Status: Acute (4) Chronic anticoagulation: Code(s): Z79.01 - group home (current) use of anticoagulants Status: Acute Assessment and Plan: Anticoagulation will need to be held in anticipation of PEG tube placement. . Subjective Date/time seen: 10/20/21 12:19 patient more alert. Remains on NG tube feedings. Had tracheostomy Wednesday. Peg tube delayed because of peritoneal dialysis. Most recent peritoneal dialysis last night. Review of Systems Review of Systems: ROS unobtainable: Yes unobtainable due to endotracheal tube Exam Narrative: Physical exam reveals patient remains on tracheostomy on ventilator. Lungs reveal bilateral rhonchi. Heart without murmur. Abdomen with peritoneal dialysis catheter in place. Somewhat obese. Bowel sounds are present soft nontender with no organomegaly. Objective Data Vital Signs Vital Signs: Vital Signs - 24 hr 10/19/21 13:25 10/19/21 13:27 10/19/21 14:00 Temperature Pulse Rate 58 L 61 56 L Respiratory Rate 18 13 Blood Pressure 96/62 L Pulse Oximetry 94 94 10/19/21 16:00 10/19/21 18:00 10/19/21 18:07 Temperature 98.2 F Pulse Rate 54 L 60 61 Respiratory Rate 18 20 Blood Pressure 104/61 118/71 Pulse Oximetry 93 95 95 10/19/21 19:00 10/19/21 19:20 10/19/21 19:43 Temperature Pulse Rate 54 L 61 62 Respiratory Rate 16 19 Blood Pressure Pulse Oximetry 92 10/19/21 20:00 10/19/21 22:00 10/19/21 22:50 Temperature 98.1 F Pulse Rate 60 57 L 51 L Respiratory Rate 20 20 Blood Pressure 142/75 H 110/78 Pulse Oximetry 95 95 95 10/20/21 00:00 10/20/21 02:00 10/20/21 02:10 Temperature 98.6 F Pulse Rate 61 62 60 Respiratory Rate 18 20 21 H Blood Pressure 109/71 97/59 L Pulse Oximetry 95 95 97 10/20/21 02:26 10/20/21 03:54 10/20/21 04:00 Temperature 98.6 F Pulse Rate 58 L 62 61 Respiratory Rate 20 18 18 Blood Pressure 106/72 Pulse Oximetry 95 95 10/20/21 04:33 10/20/21 06:00 10/20/21 08:00 Temperature 98.5 F Pulse Rate 56 L 62 60 Respiratory Rate 20 20 Blood Pressure 96/59 L 101/57 L Pulse Oximetry 97 95 97 10/20/21 08:03 10/20/21 08:15 10/20/21 08:21 Temperature 98.6 F Pulse Rate 62 62 61 Respiratory Rate 20 19 Blood Pressure 96/59 L Pulse Oximetry 97 10/20/21 08:22 10/20/21 10:00 10/20/21 11:40 Temperature Pulse Rate 64 58 L 56 L Respiratory Rate 20 20 Blood Pressure 93/65 L Pulse Oximetry 99 97 10/20/21 12:00 Temperature 99.1 F Pulse Rate 57 L Respiratory Rate 27 H Blood Pressure 99/68 L Pulse Oximetry 96 Intake/Output Intake/Output: Intake & Output 10/17/21 10/18/21 10/19/21 10/20/21 23:59 23:59 23:59 23:59 Intake Total 1866 1432 1571 400 Output Total 1905 2023 417 1220 Balance -39 -591 8923 -820 Meds/Results Medications: Active Medications Generic Name Dose Route Start Last Admin Trade Name Freq PRN Reason Stop Dose Admin Hydrocodone Bitart/Acetaminophen 1 tab 10/16/21 07:42 10/16/21 10:20 Hydrocodone/Acetaminophen (*Crx) 10-325 Mg Tablet PO 1 tab Q4H PRN Administration Pain Rated 4-6 Albuter
[2021-10-20 12:52] LABS: Glucose Point of Care 89 mg/dl (65-105)
--- NOTE | 2021-10-20 14:43 | WPDHPUPDATE1 ---
History and Physical Update Update Date/Time: 10/20/21 14:43 History and Physical has been reviewed, including an updated exam of the patient. There are changes in the patient's condition. Patient's sepsis seems to have resolved. However, he required a tracheostomy because of respiratory failure. His peritoneal dialysis is working but not ideally. Because he is scheduled to go to an LTAC he needs to have a gastrostomy tube in this cannot be done while he is also receiving peritoneal dialysis. Therefore, I have been asked to place a tunneled dialysis catheter so that he can start hemodialysis and then subsequently a PEG tube can be inserted for tube feedings. At the moment he is been receiving tube feedings through an NG tube. His pneumonia and now seems to have stabilized. He was on continuous antibiotics for his recent sepsis. Recent blood cultures have been negative. Risks, benefits, and alternatives of placement of a tunneled dialysis catheter have been discussed and questions answered. Patient's POA agrees to proceed with procedure.
--- NOTE | 2021-10-20 15:09 | WPDANESEPPF ---
Anes - Initial Pre Proc Eval Procedure: Operation Date: 10/20/21 14:30 Proposed Procedures p Insertion Duraflow Permacath Dialysis Tunneled Dialysis Catheter - Nikita Quintana MD Date/Time: 10/20/21 15:09 Surgeon: Mian Mesa MD Pre Op Diagnosis: Hyperkalemia/chronic renal failure/community acqui Patient Data Age: 65 Gender: M Height: 1.78 m Weight: 120.9 kg Last Vital Signs Temp 37.3 C 10/20/21 12:00 Pulse 59 L 10/20/21 14:33 Resp 20 10/20/21 14:33 BP 99/68 L 10/20/21 12:00 Pulse Ox 97 10/20/21 14:32 Allergies Allergy/AdvReac Type Severity Reaction Status Date / Time heparin Allergy Severe Unknown Verified 10/05/21 10:06 perflutren [From Definity] Allergy Severe Back Pain Verified 10/05/21 10:07 shellfish derived Allergy Intermediate Unknown Verified 10/03/21 13:03 iohexol Allergy Unknown Unknown Verified 10/03/21 13:03 [From contrast - CT, X-RAY] spironolactone Allergy Unknown Unknown Verified 10/03/21 13:03 [From Aldactone] Tethvam-XFZ-RwV Reductase Allergy Unknown Unknown Verified 10/03/21 13:03 Inhibitor [Okwcnkv-Xtg-Cth Reductase Inhibitor] Home Medications Medication Instructions Recorded Confirmed Type Eliquis 5 mg PO Q12H 04/06/20 10/04/21 History allopurinol 100 mg PO DAILY 04/06/20 10/03/21 History brimonidine 0.2 % OPHTHALMIC (EYE) Q12H 04/06/20 10/04/21 History dorzolamide-timolol 1 drp OPHTHALMIC (EYE) Q12H 04/06/20 10/04/21 History gabapentin 300 mg PO Q12H 04/06/20 10/04/21 History insulin aspart U-100 [Novolog See Rx Instructions .ROUTE .COMPLEX 04/06/20 10/03/21 History Flexpen U-100 Insulin] rosuvastatin 10 mg PO HS 04/06/20 10/04/21 History alprazolam 0.25 mg PO BID PRN 05/24/20 10/03/21 History duloxetine 60 mg PO DAILY 05/24/20 10/03/21 History bumetanide 2 mg PO 09,12 06/20/20 10/04/21 History sevelamer carbonate 1,600 mg PO TIDWM 06/20/20 10/04/21 History diphenhydramine HCl [Benadryl] 50 mg PO HS 10/03/21 10/03/21 History ergocalciferol (vitamin D2) 1,250 mcg PO WEEKLY 10/03/21 10/03/21 History [Vitamin D2] lisinopril 2.5 mg PO HS 10/03/21 10/03/21 History mupirocin 1 applic TOPICAL DAILY 10/03/21 10/03/21 History silver sulfadiazine 1 applic TOPICAL DAILY 10/03/21 10/03/21 History sodium chlor-hypochlorous acid 1 ea IRRIGATION DAILY 10/03/21 10/03/21 History [Vashe Wound Therapy] Laboratory Tests 10/19/21 10/19/21 10/19/21 16:49 20:10 23:27 Puncture Site ABG pH ABG pCO2 ABG pO2 ABG PO2/FiO2 Ratio ABG HCO3 ABG O2 Saturation ABG O2 Content ABG Base Excess A-a Gradient Oxyhemoglobin Carboxyhemoglobin Methemoglobin Reduced Hemoglobin Total Hemoglobin O2 Delivery Device O2 Liters/Min Minute Volume Vent Rate Vent Mode FiO2 Tidal Volume PEEP Peak Inspir Pressure Pressure Support POC Capillary Glucose 106 mg/dl H mg/dl 168 mg/dl H mg/dl 240 mg/dl H mg/dl (65-105) (65-105) (65-105) 10/20/21 10/20/21 10/20/21 04:33 06:04 09:52 Puncture Site Right radial ABG pH 7.469 H (7.350-7.450) ABG pCO2 32.6 mmHg L mmHg (35.0-45.0) ABG pO2 83.4 mmHg mmHg (80.0-100.0) ABG PO2/FiO2 Ratio 2.38 % % ABG HCO3 23.1 mEq/l mEq/l (22.0-26.0) ABG O2 Saturation 96.9 % % (95.0-100.0) ABG O2 Content 15.6 %vol L %vol (16.0-22.0) ABG Base Excess 0.0 mEq/l mEq/l (+/-2.0) A-a Gradient 128.3 mmHg mmHg Oxyhemoglobin 95.7 % THb % THb (90.0-100.0) Carboxyhemoglobin 0.3 % THb % THb (0-2.0) Methemoglobin 0.1 %THb %THb (0-1.5) Reduced Hemoglobin 3.9 %THb %THb (0-5.0) Tot
[2021-10-20] MEDS: HEPARIN SODIUM 1,000 UNITS/ML VIAL 1000 UNITS IV PUSH (15:36)
[2021-10-20] MEDS: HEPARIN SODIUM, PORCINE 10,000 UNITS/10 ML VIAL 5 UNITS IV PUSH (15:47)
--- NOTE | 2021-10-20 16:37 | PM.IMPN ---
Progress Note: A&P Assessment and Plan (1) Ventilator dependence: Code(s): Z99.11 - Dependence on respirator [ventilator] status Status: Acute (2) Abnormal CT scan, chest: Code(s): R93.89 - Abnormal findings on diagnostic imaging of other specified body structures Status: Acute (3) Ribs, multiple fractures: Code(s): S22.49XA - Multiple fractures of ribs, unspecified side, initial encounter for closed fracture Status: Acute (4) Mediastinal mass: Code(s): J98.59 - Other diseases of mediastinum, not elsewhere classified Status: Acute (5) Pneumonia: Code(s): J18.9 - Pneumonia, unspecified organism Status: Acute (6) End-stage renal disease (ESRD): Code(s): N18.6 - End stage renal disease Status: Acute (7) Chronic wound of extremity: Status: Chronic (8) Ischemic cardiomyopathy: Code(s): I25.5 - Ischemic cardiomyopathy Status: Acute Additional Plan 65-year-old gentleman who presented to emergency room after tripping over the last step of his stairs and fell and struck his knees and his head. Upon evaluation in emergency room patient was noted to be bradycardic and hyperkalemia Patient had episodes of bradycardia patient also has recent history of peritonitis completed course of antibiotics and still has lower extremity ulcer.Patient has history of AICD which was removed due to infection, per patient there was plan to for possible inserting another AICD in the future.On 10/04/2021 patient had episode of cardiac arrest/PE a was found to have junctional bradycardia patient required CPR intubation and admission to the ICU. (1) Acute respiratory failure with hypoxia: Acute Respiratory failure secondary to cardiac arrest, pneumonia, pulmonary edema, left pleural effusion. Intubated on 10/04/2021 during code blue - Continue full mechanical ventilation support to prevent hypoxemia/hypercarbia and end organ damage. Underwent tracheostomy PEG tube to be placed later,once gets HD catheter and PD catheter will likely be removed (2) End-stage renal disease on peritoneal dialysis: patient is being followed by Nephrology and is currently peritoneal dialysis. Plan to get HD catheter today and to be switched to HD from tomorrow (3) Cardiac arrest: Its possible patient's cardiac arrest secondary to junctional bradycardia or slow AFib Troponins, although mildly elevated in presence of end-stage renal disease, remained flat EKG showed AFib/ junctional bradycardia with heart rate in 40s - cardiology is following - continue Eliquis (4) Pneumonia: patient on the floor was being treated for community-acquired pneumonia antibiotics were broadened after intubation as possible patient may have aspirated Sputum culture shows E.coli Antibiotic reached per ICU (5) Insulin dependent diabetes mellitus: Continue sliding scale insulin continue Lantus for ICU protocol (6) Mediastinal mass: CT chest showed 3.8 x 1.7 cm anterior mediastinal mass, increased from 1.9 x 1.6 cm on 10/03/21. This finding may be a combination of hematoma and a pre-existing mass such as thymoma or lymphoma. He did get CPR with rib fractures which may lead to small hematoma. He has a stable hemoglobin. He is on anticoagulation for multiple indications continue to monitor this time (7) Ribs, multiple fractures: Acute fractures of left second-sixth ribs continue pain control (8) Code:Full (9)DVT ppx: on Eliquis as mentioned above (10) Dispo: pending improvement, poor [facility] prognosis overall Time Spent With Patient Time with patient: 15 - 25 minutes Subjective Date/time seen: 10/20/21 16:37 no major change clinically Review of Systems Review of Systems: ROS unobtainable: Yes unobtainable due to medical condition and unobtainable due to mental status Exam Narrative: Not following commands Chest bilateral crackles Abdomen nontender nondistended CVS S1 + S2 Minima
--- NOTE | 2021-10-20 17:29 | PC.NURSE ---
Patient back to floor from OR at 1700. Report at bedside by OR team.
--- NOTE | 2021-10-20 17:35 | W.PM.PROC2 ---
Procedure Note - Detailed Date of Procedure 10/20/21 Pre-op Diagnosis Hyperkalemia/chronic renal failure Post-op Diagnosis Same Procedure Performed Attempted tunneled dialysis catheter placement Surgeon Nikita Quintana MD Nurse Midwife KYLER Tovar, OR 1st assist Anesthesia General Indications Patient currently on peritoneal dialysis. Needs to have PEG tube placement for long-term care facility and will no longer be able to have peritoneal dialysis if that is done. Therefore, it has been plan to switch to hemodialysis. In order to do this at a long-term care hospital he will need to have a tunneled dialysis catheter to be able to have the hemodialysis. Patient currently needed to have a right jugular catheter that is been in since he was admitted for medications and pressors. He just got off pressors today. Therefore, our plan was to place either a left internal jugular or a left subclavian temporary dialysis catheter. Findings Very deep vascular anatomy in the left neck with a small vein poorly defined by ultrasound. I was able to obtain a blood return from a subcuticular stick from a subclavian approach, but was unable to advance a guidewire without resistance into central venous system. Description of Procedure Initially the patient was placed supine with his arms down to his sides and secured to the table his head was turned slightly to the right but this was difficult because he is stiff. We carefully prepped all around his tracheostomy site and on did the trach tie on the left to expose the left neck. We carefully secured is ventilator connection to tracheostomy and then prepped his neck and entire left chest and placed a Steri-Drape between the tracheostomy site and the area of planned surgery. Time-out was performed confirming patient site and the fact that he was on continuing antibiotics (imipenem). Following this I used ultrasound to evaluate the vascular anatomy of his left neck. The anatomy seemed to be deep and I never really could nicely see the jugular vein and carotid artery although we did take a picture and transport this into the medical record. There was a short neck and several times using the ultrasound I was able to get the 18 gauge needle into the internal jugular vein with good blood return. However, I was never able to successfully pass a guidewire even with use of fluoroscopy into the central venous system it always seemed to curl immediately upon coming out of the end of the needle within the vein. Therefore, I then also tried a left subclavian approach without using ultrasound. Using standard landmarks I carefully did 2 passes underneath the left clavicle with the 2nd a mean little bit more cephalad I entered a vein with good dark blood return and turned the bowel down. I then tried passing a guidewire but it did not go easily. Therefore using fluoroscopy I again several times tried to pass a guidewire and even obtain another guidewire that did have some bending it from previous use and a could not get it to forward on into the left subclavian vein or into the brachiocephalic. Therefore I gave up on trying to place the central line in this left subclavicular region and applied pressure for 3 minutes to the area where we had obtained the venous access. (It should be noted that he does have a scar in subclavicular area which I was then informed later was a site for a previous defibrillator that became infected and was taken out more than 4 or 5 years ago. 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 I then requested IV contrast dye while we had venous access on the left to see if I could inject this and see why the guidewire was not passing. However the team reminded me that he has an allergy to Iohexol venous contrast as documented in the chart. There
[2021-10-20 17:48] LABS: Glucose Point of Care 116 mg/dl (65-105)
[2021-10-20] MEDS: EPOETIN ALFA-EPBX 10,000 UNITS/ML VIAL 10000 UNITS SUB-Q (18:43)
[2021-10-20] MEDS: ROSUVASTATIN 10 MG TABLET PO (20:11)
[2021-10-20 20:21] LABS: Glucose Point of Care 106 mg/dl (65-105)
[2021-10-20 23:20] LABS: Glucose Point of Care 140 mg/dl (65-105)
[2021-10-21] VITALS (26 sets, daily range): BP systolic 104–125; BP diastolic 7–76; PULSE 55–66; RESP 12–30; TEMP 36.8–37.2; O2SAT 92–97
[2021-10-21] MEDS: HYDROCORTISONE SODIUM SUCCINATE 100 MG/2 ML VIAL IV PUSH ×2 (00:35→08:08)
[2021-10-21] MEDS: ALBUTEROL SULFATE NEB 2.5 MG/0.5 ML INH INHALATION ×4 (02:02→20:16)
[2021-10-21] MEDS: IPRATROPIUM BR 0.02% INH SOLN 0.5 MG/2.5 ML VIAL INHALATION ×4 (02:02→20:16)
[2021-10-21 04:57] LABS: Alveolar/Arterial O2 Gradient 301.9 mmHg; Base Excess ABG -2.6 mEq/l (+/-2.0); Carboxyhemoglobin 0.2 % THb (0-2.0); Fractional Inspired Oxygen 65 %; HCO3 ABG 20.3 mEq/l (22.0-26.0); Methemoglobin ABG 0.3 %THb (0-1.5); Oxygen Content ABG 14.1 %vol (16.0-22.0); Oxygen Saturation ABG 98.8 % (95.0-100.0); Oxyhemoglobin 97.4 % THb (90.0-100.0); PCO2 ABG 28.8 mmHg (35.0-45.0); PO2 ABG 130.2 mmHg (80.0-100.0); Reduced Hemoglobin 2.1 %THb (0-5.0); Total Hemoglobin 10.1 g/dL (12.0-18.0); pH ABG 7.466 (7.350-7.450)
[2021-10-21 04:59] LABS: Arterial Blood Gas PEEP 8 cmH2O; Arterial Blood Gas Vent Mode ASV; Device VENTILATOR; Modified Allen's Test Unable to perform; Site Drawn RIGHT RADIAL
[2021-10-21 05:01] LABS: Hematocrit 28.6 % (42.0-52.0); Hemoglobin 9.5 g/dL (14.0-18.0); Mean Corpuscular HGB Conc 33.2 g/dl (32-36); Mean Corpuscular Hemoglobin 31.6 pg (26-34); Mean Platelet Volume 11.4 fl (7.4-10.4); Platelet Count Result 450 k/mm3 (150-375); Red Blood Count 3.01 M/mm3 (4.6-6.20); Red Cell Distribution Width 17.4 % (11.5-14.5); White Blood Count 24.8 K/mm3 (4.5-10.0)
[2021-10-21 05:26] LABS: Alanine Aminotransferase 14 U/L (4-50); Albumin Level 3.5 g/dL (3.5-5.1); Alkaline Phosphatase 239 U/L (38-126); Anion Gap 17 mmol/L (8-16); Aspartate Amino Transferase 31 U/L (17-59); Bilirubin,Total 0.8 mg/dL (0.2-1.3); Calcium 8.8 mg/dL (8.4-10.2); Carbon Dioxide 24 mmol/L (22-30); Chloride 88 mmol/L (98-107); Estimated CRCL calculation 10 ml/min; Estimated Glomerular Filt Rate 6; Glucose 151 mg/dL (65-110); Magnesium 2.8 mg/dL (1.6-2.3); Phosphorus 8.6 mg/dL (2.5-4.5); Potassium 4.7 mmol/L (3.4-5.0); Sodium 129 mmol/L (137-145)
[2021-10-21 05:30] LABS: Blood Urea Nitrogen 132 mg/dL (9-20)
[2021-10-21] MEDS: CENTRAL LINE FLUSH 10 ML IV PUSH ×3 (08:06→21:01)
[2021-10-21] MEDS: allopurinoL 100 MG TABLET PO (08:07)
[2021-10-21] MEDS: MIDODRINE HCL 10 MG TABLET FEED TUBE ×3 (08:07→21:00)
[2021-10-21] MEDS: DORZOLAMIDE/TIMOLOL OPHTH SOL 10 ML BOTTLE 1 DROP EACH EYE ×2 (08:08→20:53)
[2021-10-21] MEDS: PANTOPRAZOLE SODIUM IV 40 MG VIAL IV PUSH (08:09)
[2021-10-21] MEDS: BRIMONIDINE TARTRATE 0.2% OP SOLN 5 ML BTL 1 DROP EACH EYE ×2 (08:11→20:53)
[2021-10-21] MEDS: CALCIUM ACETATE 667 MG TABLET 1334 MG FEED TUBE ×3 (08:11→16:05)
[2021-10-21] MEDS: DORNASE ALFA INH SOLN 1 MG/ML 2.5 ML AMP 2.5 MG INHALATION ×2 (08:15→20:16)
[2021-10-21] MEDS: SOD HYPOCHLORITE 1/4 STRENGTH 473 ML 1 APPLIC TOPICAL (08:19)
[2021-10-21] MEDS: MUPIROCIN 2% OINT 22 GM TUBE 1 APPLIC TOPICAL (08:20)
[2021-10-21] MEDS: SILVER SULFADIAZINE 1% CR 50 GM JAR (*BKC) 1 APPLIC TOPICAL (08:20)
--- NOTE | 2021-10-21 08:30 | PM.PNNEP ---
Progress Note: A&P Assessment and Plan (1) End-stage renal disease (ESRD): Code(s): N18.6 - End stage renal disease Status: Acute Assessment and Plan: continue CCPD treatment tonight. Two greens and a red tonight. Tunneled dialysis catheter to go in this afternoon At some point. Will change from PD to hemodialysis When catheter in. (2) Cardiac arrest: Code(s): I46.9 - Cardiac arrest, cause unspecified Status: Acute Assessment and Plan: Cardiology on the case (3) Acute respiratory failure with hypoxia: Code(s): J96.01 - Acute respiratory failure with hypoxia Status: Acute Assessment and Plan: He is on the ventilato He has a trach FiO2 up. Will try to remove more fluid. (4) Hyponatremia: Code(s): E87.1 - Hypo-osmolality and hyponatremia Status: Acute Assessment and Plan: still low but stable, varying around 130. (5) Hypotension: Code(s): I95.9 - Hypotension, unspecified Status: Acute Assessment and Plan: Blood pressure doing better off pressors. (6) Bradycardia: Code(s): R00.1 - Bradycardia, unspecified Status: Chronic Assessment and Plan: Doing well . Heart rate in the 60s. (7) Anemia: Code(s): D64.9 - Anemia, unspecified Status: Chronic Assessment and Plan: due to ESRD and possibly acute illness on Epogen Ten thousand 3 times a week Hemoglobin 9.5 today Subjective Date/time seen: 10/21/21 08:30 Interval history: The patient is being seen for end-stage renal disease. The patient is on the ventilator. FiO2 up to 55%. He wakens when I call his name and nods his head yes and no to questions. Tunneled catheter was unable to be placed yesterday. They are going to try again today. Exam Narrative: General: WD/WN male intubatedand on mechanical ventilation Heart: normal S1 and S2; no rub or gallop Lungs: coarse breath sounds bilaterally Abdomen: obese but soft, nontender, nondistended, positive bowel sounds; PD catheter in place Extremities: Trace to 1+ chronic bilateral edema Skin: No acute rash Objective Data Vital Signs Vital Signs: Vital Signs - 24 hr 10/20/21 10:00 10/20/21 11:40 10/20/21 12:00 Temperature 37.3 C Pulse Rate 57 L 56 L 58 L Respiratory Rate 20 27 H Blood Pressure 93/65 L 99/68 L Pulse Oximetry 99 97 96 10/20/21 14:00 10/20/21 14:25 10/20/21 14:32 Temperature Pulse Rate 55 L 57 L 56 L Respiratory Rate 24 H 22 H Blood Pressure 106/60 Pulse Oximetry 95 97 10/20/21 14:33 10/20/21 17:00 10/20/21 17:07 Temperature 36.7 C Pulse Rate 59 L 59 L 58 L Respiratory Rate 20 24 H Blood Pressure 124/77 Pulse Oximetry 97 97 10/20/21 18:00 10/20/21 19:53 10/20/21 20:00 Temperature 36.9 C Pulse Rate 57 L 58 L 58 L Respiratory Rate 22 H 26 H Blood Pressure 108/72 127/74 Pulse Oximetry 97 94 10/20/21 20:02 10/20/21 20:15 10/20/21 20:22 Temperature Pulse Rate 58 L 57 L 55 L Respiratory Rate 25 H 25 H Blood Pressure Pulse Oximetry 96 10/20/21 22:00 10/20/21 23:23 10/21/21 00:00 Temperature 36.9 C Pulse Rate 63 60 57 L Respiratory Rate 24 H 24 H Blood Pressure 118/62 119/70 Pulse Oximetry 97 95 94 10/21/21 02:00 10/21/21 02:02 10/21/21 02:15 Temperature Pulse Rate 62 62 59 L Respiratory Rate 24 H 30 H 27 H Blood Pressure 117/63 Pulse Oximetry 95 10/21/21 04:00 10/21/21 04:46 10/21/21 06:00 Temperature 36.8 C Pulse Rate 64 57 L 62 Respiratory Rate 24 H 22 H Blood Pressure 118/7 L 104/67 Pulse Oximetry 96 94 95 10/21/21 07:58 10/21/21 08:05 10/21/21 08:06 Temperature Pulse Rate 63 60 64 Respiratory Rate 26 H 21 H Blood Pressure Pulse Oximetry 93 Intake/Output Intake/Output: Intake & Output 10/18/21 10/19/21 10/20/21 10/21/21 23:59 23:59 23:59 23:59 Intake Total 1432 1571 560 720 Ou
[2021-10-21 08:32] LABS: Glucose Point of Care 176 mg/dl (65-105)
--- NOTE | 2021-10-21 09:16 | WPDINTPN ---
Progress Note: A&P Assessment and Plan (1) Acute respiratory failure with hypoxia: Code(s): J96.01 - Acute respiratory failure with hypoxia Status: Acute Assessment and Plan: Acute Respiratory failure secondary to cardiac arrest, pneumonia, pulmonary edema, left pleural effusion. Intubated on 10/04/2021 during code blue - Continue full mechanical ventilation support to prevent hypoxemia/hypercarbia and end organ damage. -most recent PCXR reviewed -patient has been on ASV mode with 35% FiO2 and 8 of PEEP. -off all sedation since 10/09 -10/07/2021: Sputum culture growing E coli, sensitive to cefepime, Zosyn, imipenem and gentamicin. - 10/11 -repeat Sputum culture still growing E coli ESBL which is sensitive to imipenem --10/14 DC Vanc, changed Zosyn to imipenem -patient tolerated only few hours of PSV 16/02 yesterday. Will try again today -tracheostomy done on 10/17/2021 10/09/2021: CT chest, abdomen, pelvis without contrast 1. Small right and moderate left pleural effusions with collapse of the bilateral lower lobes with additional dependent compressive atelectasis. 2. Cardiomegaly. 3. Nonspecific 2.2 x 1.4 cm anterior mediastinal mass with differential including enlarged lymph node or thymoma. 4. Small volume of ascites with peritoneal dialysis catheter. (2) End-stage renal disease on peritoneal dialysis: Code(s): N18.6 - End stage renal disease; Z99.2 - Dependence on renal dialysis Status: Acute Assessment and Plan: patient is being followed by Nephrology and is currently peritoneal dialysis. -discussed with nephrology. Patient will need a PEG tube, Dr. Combs plans to transition him to hemodialysis. - surgery has been consulted for tunneled dialysis catheter placement, unable to access left subclavian on 10/20. -will discuss with surgery after obtaining peripheral IV access, so that they can try the right IJ tunnel dialysis catheter as per the schedule permits (3) Cardiac arrest: Code(s): I46.9 - Cardiac arrest, cause unspecified Status: Acute Assessment and Plan: Its possible patient's cardiac arrest secondary to junctional bradycardia or slow AFib Troponins, although mildly elevated in presence of end-stage renal disease, remained flat EKG showed AFib/ junctional bradycardia with heart rate in 40s -off dopamine 4/10 - off Levophed 4/16 - he may need transvenous pacemaker and I have discussed with Cardiology - cardiology is following - continue Eliquis -repeat head CT on 10/09: No acute intracranial findings or interval change, mild atrophy and microangiopathy. -patient opens his eyes to name and follows simple commands in all extremities 10/06/2021 Echo: - mild LVH; moderate-severe LV systolic dysfunction, ejection fraction about 30-35% - Moderate-severe aortic stenosis - Moderate pulmonary hypertension, RVSP 54 mmHg (4) Persistent atrial fibrillation: Code(s): I48.19 - Other persistent atrial fibrillation Status: Acute Assessment and Plan: currently in junctional bradycardia/sinus Jacinto- see above Eliquis was resumed after tracheostomy but now on hold for tunnel dialysis catheter placement (5) Bradycardia: Code(s): R00.1 - Bradycardia, unspecified Status: Chronic Assessment and Plan: see above (6) Pneumonia: Code(s): J18.9 - Pneumonia, unspecified organism Status: Acute Assessment and Plan: patient on the floor was being treated for community-acquired pneumonia antibiotics were broadened after intubation as possible patient may have aspirated 10/03/2021 Blood cultures: Negative Procalcitonin level 6.4 10/08: leukocystosis persists -10/07/2021: Sputum culture -growing E coli, sensitive to cefepime, Zosyn, imipenem and gentamicin - 10/11 -repeat culture still growing E coli ESBL sensitive to imipenem -10/14 DC vanc, changed Zosyn to imipenem - increase in WBC likely secondary to steroids as patient
--- NOTE | 2021-10-21 10:51 | WPDGIPROGNO ---
Progress Note: A&P Assessment and Plan (1) Ventilator dependence: Code(s): Z99.11 - Dependence on respirator [ventilator] status Status: Acute (2) Ribs, multiple fractures: Code(s): S22.49XA - Multiple fractures of ribs, unspecified side, initial encounter for closed fracture Status: Acute (3) Pneumonia: Code(s): J18.9 - Pneumonia, unspecified organism Status: Acute (4) End-stage renal disease on peritoneal dialysis: Code(s): N18.6 - End stage renal disease; Z99.2 - Dependence on renal dialysis Status: Acute (5) Acute respiratory failure with hypoxia: Code(s): J96.01 - Acute respiratory failure with hypoxia Status: Acute Additional Plan I discussed case with Nephrology service today. Patient currently remains on peritoneal dialysis. Vascular access for hemodialysis is pending unlikely to be placed today. Will defer PEG tube until several days after peritoneal dialysis stops to allow resolution of peritoneal fluid so that a PEG tube can be placed safely. Anticipate this placement later this week. Assuming hemodialysis is implemented. Subjective Date/time seen: 10/21/21 10:51 Patient remains more alert than he has been. Remains on ventilator via tracheostomy. Tube feedings via a NG tube at present. Hemodialysis shunt was not placed yesterday but likely to be placed today. Exam Narrative: Patient alert but on ventilator. Lungs reveal a few rhonchi. Heart without murmur. Abdomen is obese bowel sounds are present dialysis catheter for peritoneal dialysis remains in place. Objective Data Vital Signs Vital Signs: Vital Signs - 24 hr 10/20/21 11:40 10/20/21 12:00 10/20/21 14:00 Temperature 99.1 F Pulse Rate 56 L 58 L 55 L Respiratory Rate 27 H 24 H Blood Pressure 99/68 L 106/60 Pulse Oximetry 97 96 95 10/20/21 14:25 10/20/21 14:32 10/20/21 14:33 Temperature Pulse Rate 57 L 56 L 59 L Respiratory Rate 22 H 20 Blood Pressure Pulse Oximetry 97 10/20/21 17:00 10/20/21 17:07 10/20/21 18:00 Temperature 98.1 F Pulse Rate 59 L 58 L 57 L Respiratory Rate 24 H 22 H Blood Pressure 124/77 108/72 Pulse Oximetry 97 97 97 10/20/21 19:53 10/20/21 20:00 10/20/21 20:02 Temperature 98.4 F Pulse Rate 58 L 58 L 58 L Respiratory Rate 26 H 25 H Blood Pressure 127/74 Pulse Oximetry 94 10/20/21 20:15 10/20/21 20:22 10/20/21 22:00 Temperature Pulse Rate 57 L 55 L 63 Respiratory Rate 25 H 24 H Blood Pressure 118/62 Pulse Oximetry 96 97 10/20/21 23:23 10/21/21 00:00 10/21/21 02:00 Temperature 98.4 F Pulse Rate 60 57 L 62 Respiratory Rate 24 H 24 H Blood Pressure 119/70 117/63 Pulse Oximetry 95 94 95 10/21/21 02:02 10/21/21 02:15 10/21/21 04:00 Temperature 98.2 F Pulse Rate 62 59 L 64 Respiratory Rate 30 H 27 H 24 H Blood Pressure 118/7 L Pulse Oximetry 96 10/21/21 04:46 10/21/21 06:00 10/21/21 07:58 Temperature Pulse Rate 57 L 62 63 Respiratory Rate 22 H 26 H Blood Pressure 104/67 Pulse Oximetry 94 95 10/21/21 08:00 10/21/21 08:05 10/21/21 08:06 Temperature 98.4 F Pulse Rate 60 60 64 Respiratory Rate 21 H 21 H Blood Pressure 109/63 Pulse Oximetry 93 93 10/21/21 10:00 Temperature Pulse Rate 60 Respiratory Rate 22 H Blood Pressure 110/66 Pulse Oximetry 92 Intake/Output Intake/Output: Intake & Output 10/18/21 10/19/21 10/20/21 10/21/21 23:59 23:59 23:59 23:59 Intake Total 1432 1571 660 820 Output Total 2023 417 1220 Balance -591 1154 -560 820 Meds/Results Medications: Active Medications Generic Name Dose Route Start Last Admin Trade Name Freq PRN Reason Stop Dose Admin Hydrocodone Bitart/Acetaminophen 1 tab 10/16/21 07:42 10/16/21 10:20 Hydrocodone/Acetaminophen (*Crx) 10-325 Mg Tablet PO 1 tab Q4H PRN Administration Pain Rated 4-6 Albuterol 2.5 mg 10/13/21 14:00 10/21/21 02:02 Albuterol Sulfate Neb 2.5 Mg/0.5 Ml
--- NOTE | 2021-10-21 11:18 | PCNFU ---
Nutrition Follow-Up Complete: Inadequate Oral Intake as related to mechanical ventilation as evidenced by NPO. Goal: Meet estimated nutritional needs Patient is progressing towards goal. We will continue current goal. Pt current nutrition is Nepro at 60 ml/hr over 22 hours. Last recorded weight is 121.6 kg, stable Bowel Motility:+BM reported 10/21 Labs Reviewed:Glu 151, BUN 132, GFR 6, Cr 8.6,Na 129, Hct 28.6,Hgb 9.5 Meds Noted: Phoslo, Atrovent, Midodrine,Protonix, Crestor, Retacrit, Zyloprim Skin: left lower leg-venous status, right foot-DM ulcer Additional Notes: Patient current with Trach. Unsuccessful placement of tunneled catheter yesterday. Plans to try procedure again today. tube feedings are on hold at this time. Nutrition Recommendation would be to continue with Nepro at 60 ml/hr over 22 hours. Tube feeding providing 2376 kcals/107 gms protein/960 ml water. Free water flush 30 ml q 4 hours. Agree with diet orders. Will be monitoring in ICU rounds and reassessing every Wednesday and Wednesday.
--- NOTE | 2021-10-21 11:48 | PM.PNCARD ---
Progress Note: A&P Assessment and Plan (1) Cardiac arrest: Code(s): I46.9 - Cardiac arrest, cause unspecified Status: Acute Assessment and Plan: There is no clear evidence for association with his bradycardia as a cause or contributor. Appears secondary to hypoxia and or sepsis/septic shock with hypotension. The significance of the fact that he was on PD at the time also must be considered. At this time, most probable explanation respiratory decompensation, worsening pneumonia, and sepsis/septic shock. Remains off Dopamine and Levophed, but on Midodrine. If he becomes hemodynamically unstable and/or significantly bradycardic may restart dopamine. -No plan or indication for transvenous or permanent pacer at this time. -Avoid AV miles blocking agents. Patient is critically ill, prognosis guarded. (2) Bradycardia: Code(s): R00.1 - Bradycardia, unspecified Status: Acute Assessment and Plan: Asymptomatic, chronic, and indicative of underlying significant conduction system disease. No acute indication for pacing at this time. (3) Persistent atrial fibrillation: Code(s): I48.19 - Other persistent atrial fibrillation Status: Acute Assessment and Plan: Atrial fibrillation and with intermittent slow ventricular response is chronic. 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 -Continue to avoid AV miles blocking agents. -Remains on systemic anticoagulation with Eliquis 5mg BID, on hold currently for tunneled HD catheter placement. Resume post procedure for CVA risk reduction. (4) Ischemic cardiomyopathy: Code(s): I25.5 - Ischemic cardiomyopathy Status: Acute Assessment and Plan: Stable, chronic heart failure with reduced ejection fraction reasonably compensated EF 30%. Volume management with Nephrology and dialysis. (5) Acute respiratory failure with hypoxia: Code(s): J96.01 - Acute respiratory failure with hypoxia Status: Acute Assessment and Plan: Mechanical ventilatory support via Trach. IV antibiotics. Management per Primary Service and Critical Care. PSV trials. (6) Community acquired pneumonia: Code(s): J18.9 - Pneumonia, unspecified organism Status: Acute Assessment and Plan: Management per primary service with antibiotics as appropriate. Left-sided infiltrate. Sputum cultures + E. Coli from 10/11/21. Chest x-ray slight worsening left-sided airspace opacities. (7) Septic shock: Code(s): A41.9 - Sepsis, unspecified organism; R65.21 - Severe sepsis with septic shock Status: Acute Assessment and Plan: Essentially resolved, off pressors. Continue Midodrine 10mg q8hr per tube. On broad-spectrum antibiotics, E. Coli in sputum. Management per critical care. BP stable. (8) Elevated troponin: Code(s): R77.8 - Other specified abnormalities of plasma proteins Status: Acute Assessment and Plan: Type 2 infarction minimal elevation given renal failure, history of CAD, hypertension, hypoxia not secondary to acute coronary syndrome and/or plaque rupture. (9) Chronic anticoagulation: Code(s): Z79.01 - branch service leader (current) use of anticoagulants Status: Acute Assessment and Plan: Continue Eliquis (10) End-stage renal disease (ESRD): Code(s): N18.6 - End stage renal disease Status: Acute Assessment and Plan: Peritoneal dialysis per Nephrology although transition to hemodialysis once tunneled catheter placement performed. Subjective Date/time seen: Date of service: 10/21/21 11:48 Interval history: 65-year-old man seen in follow-up h/o ischemic cardiomyopathy, chronic atrial fibrillation LV systolic dysfunction and [id number] aortic valve stenosis. Patient admitted here with sepsis had a PEA arrest after which she has been placed in the ICU. Yesenia
[2021-10-21] MEDS: INSULIN ASPART (*BKC) 100 UNITS/ML SUB-Q ×3 (12:39→20:53)
[2021-10-21 12:43] LABS: Glucose Point of Care 228 mg/dl (65-105)
--- NOTE | 2021-10-21 13:35 | P.PNIM_ITS ---
Progress Note: A&P Assessment and Plan (1) Acute respiratory failure with hypoxia: Code(s): J96.01 - Acute respiratory failure with hypoxia Status: Acute Assessment and Plan: Acute Respiratory failure secondary to cardiac arrest, pneumonia, pulmonary edema, left pleural effusion. Intubated on 10/04/2021 during code blue - Continue full mechanical ventilation support to prevent hypoxemia/hypercarbia and end organ damage. -most recent PCXR reviewed -patient has been on ASV mode with 35% FiO2 and 8 of PEEP. -off all sedation since 10/09 -10/07/2021: Sputum culture growing E coli, sensitive to cefepime, Zosyn, imipenem and gentamicin. - 10/11 -repeat Sputum culture still growing E coli ESBL which is sensitive to imipenem --10/14 DC Vanc, changed Zosyn to imipenem -patient tolerated only few hours of PSV 16/02 yesterday. Will try again today -tracheostomy done on 10/17/2021 10/09/2021: CT chest, abdomen, pelvis without contrast 1. Small right and moderate left pleural effusions with collapse of the bilateral lower lobes with additional dependent compressive atelectasis. 2. Cardiomegaly. 3. Nonspecific 2.2 x 1.4 cm anterior mediastinal mass with differential including enlarged lymph node or thymoma. 4. Small volume of ascites with peritoneal dialysis catheter. (2) End-stage renal disease on peritoneal dialysis: Code(s): N18.6 - End stage renal disease; Z99.2 - Dependence on renal dialysis Status: Acute Assessment and Plan: patient is being followed by Nephrology and is currently peritoneal dialysis. -discussed with nephrology. Patient will need a PEG tube, Dr. Combs plans to transition him to hemodialysis. - surgery has been consulted for tunneled dialysis catheter placement, unable to access left subclavian on 10/20. -will discuss with surgery after obtaining peripheral IV access, so that they can try the right IJ tunnel dialysis catheter as per the schedule permits (3) Cardiac arrest: Code(s): I46.9 - Cardiac arrest, cause unspecified Status: Acute Assessment and Plan: Its possible patient's cardiac arrest secondary to junctional bradycardia or slow AFib Troponins, although mildly elevated in presence of end-stage renal disease, remained flat EKG showed AFib/ junctional bradycardia with heart rate in 40s -off dopamine 4/10 - off Levophed 4/16 - he may need transvenous pacemaker and I have discussed with Cardiology - cardiology is following - continue Eliquis -repeat head CT on 10/09: No acute intracranial findings or interval change, mild atrophy and microangiopathy. -patient opens his eyes to name and follows simple commands in all extremities 10/06/2021 Echo: - mild LVH; moderate-severe LV systolic dysfunction, ejection fraction about 30- 35% - Moderate-severe aortic stenosis - Moderate pulmonary hypertension, RVSP 54 mmHg (4) Persistent atrial fibrillation: Code(s): I48.19 - Other persistent atrial fibrillation Status: Acute Assessment and Plan: currently in junctional bradycardia/sinus Jacinto- see above Eliquis was resumed after tracheostomy but now on hold for tunnel dialysis catheter placement (5) Bradycardia: Code(s): R00.1 - Bradycardia, unspecified Status: Chronic Assessment and Plan: see above (6) Pneumonia: Code(s): J18.9 - Pneumonia, unspecified organism Status: Acute Assessment and Plan: patient on the floor was being treated for community-acquired pneumonia antibiotics were broadened after intubation as possible patient may have aspirated 10/03
--- NOTE | 2021-10-21 13:56 | WPDANESPN ---
Anes - Prog Note Post-Op Date/Time: 10/21/21 13:56 Cardiovascular status: normal Respiratory status: normal Airway patency: baseline (remains on vent via trach) Mental status: baseline Post-Op hydration status: normal Vital Signs: Last Vital Signs Temp 98.8 F 10/21/21 12:00 Pulse 58 L 10/21/21 13:51 Resp 26 H 10/21/21 13:48 BP 104/69 10/21/21 12:00 Pulse Ox 96 10/21/21 13:51 Pain Score (VAS): 0 I/O: Intake & Output 10/20/21 10/21/21 10/21/21 23:59 07:59 15:59 Intake Total 160 720 100 Output Total 0 Balance 160 720 100 Laboratory Tests 10/21/21 04:33 10/21/21 04:33 10/20/21 10/20/21 10/20/21 17:43 20:19 23:17 WBC RBC Hgb Hct MCV MCH MCHC RDW Plt Count MPV Puncture Site ABG pH ABG pCO2 ABG pO2 ABG PO2/FiO2 Ratio ABG HCO3 ABG O2 Saturation ABG O2 Content ABG Base Excess A-a Gradient Oxyhemoglobin Carboxyhemoglobin Methemoglobin Reduced Hemoglobin Total Hemoglobin O2 Delivery Device O2 Liters/Min Minute Volume Vent Rate Vent Mode FiO2 Tidal Volume PEEP Peak Inspir Pressure Pressure Support Sodium Potassium Chloride Carbon Dioxide Anion Gap BUN Creatinine Estim Creat Clear Calc Estimated GFR Glucose POC Capillary Glucose 116 H 106 H 140 H Calcium Phosphorus Magnesium Total Bilirubin AST ALT Alkaline Phosphatase Total Protein Albumin 10/21/21 10/21/21 10/21/21 04:32 04:33 04:33 WBC 24.8 H RBC 3.01 L Hgb 9.5 L Hct 28.6 L MCV 95.0 MCH 31.6 MCHC 33.2 RDW 17.4 H Plt Count 450 H MPV 11.4 H Puncture Site Right radial ABG pH 7.466 H ABG pCO2 28.8 L ABG pO2 130.2 H ABG PO2/FiO2 Ratio 2.00 ABG HCO3 20.3 L ABG O2 Saturation 98.8 ABG O2 Content 14.1 L ABG Base Excess -2.6 A-a Gradient 301.9 Oxyhemoglobin 97.4 Carboxyhemoglobin 0.2 Methemoglobin 0.3 Reduced Hemoglobin 2.1 Total Hemoglobin 10.1 L O2 Delivery Device Ventilator O2 Liters/Min Not Reportable Minute Volume Not Reportable Vent Rate Not Reportable Vent Mode Asv FiO2 65 Tidal Volume Not Reportable PEEP 8 Peak Inspir Pressure Not Reportable Pressure Support Not Reportable Sodium 129 L Potassium 4.7 Chloride 88 L Carbon Dioxide 24 Anion Gap 17 H BUN 132 H D Creatinine 8.60 H Estim Creat Clear Calc 10 Estimated GFR 6 L Glucose 151 H POC Capillary Glucose Calcium 8.8 Phosphorus 8.6 H Magnesium 2.8 H Total Bilirubin 0.8 AST 31 ALT 14 Alkaline Phosphatase 239 H Total Protein 7.0 Albumin 3.5 10/21/21 10/21/21 08:05 12:37 WBC RBC Hgb Hct MCV MCH MCHC RDW Plt Count MPV Puncture Site ABG pH ABG pCO2 ABG pO2 ABG PO2/FiO2 Ratio ABG HCO3 ABG O2 Saturation ABG O2 Content ABG Base Excess A-a Gradient Oxyhemoglobin Carboxyhemoglobin Methemoglobin Reduced Hemoglobin Total Hemoglobin O2 Delivery Device O2 Liters/Min Minute Volume Vent Rate Vent Mode FiO2 Tidal Volume PEEP Peak Inspir Pressure Pressure Support Sodium Potassium Chloride Carbon Dioxide Anion Gap BUN Creatinine Estim Creat Clear Calc Estimated GFR Glucose POC Capillary Glucose 176 H 228 H Calcium Phosphorus Magnesium Total Bilirubin AST ALT Alkaline Phosphatase Total Protein Albumin Post-procedural complaints: none Patient Feedback: Patient satisfied with anesthetic care.
[2021-10-21] MEDS: diphenhydrAMINE HCL ELIXIR 12.5 MG/5 ML UDC 50 MG PO (14:10)
[2021-10-21] MEDS: HYDROCORTISONE SODIUM SUCCINATE 100 MG/2 ML VIAL 50 MG IV PUSH ×2 (14:10→21:00)
[2021-10-21 16:23] LABS: Glucose Point of Care 273 mg/dl (65-105)
[2021-10-21] MEDS: MINERAL OIL/WHITE PETROLATUM OINTMENT 1 APPLIC EACH EYE (20:54)
[2021-10-21] MEDS: ROSUVASTATIN 10 MG TABLET PO (20:54)
[2021-10-21 21:05] LABS: Glucose Point of Care 308 mg/dl (65-105)
[2021-10-22] VITALS (26 sets, daily range): BP systolic 90–128; BP diastolic 45–71; PULSE 53–95; RESP 13–27; TEMP 36.9–37.2; O2SAT 62–100
[2021-10-22 00:02] LABS: Glucose Point of Care 332 mg/dl (65-105)
[2021-10-22] MEDS: INSULIN ASPART (*BKC) 100 UNITS/ML SUB-Q (00:34)
[2021-10-22] MEDS: IPRATROPIUM BR 0.02% INH SOLN 0.5 MG/2.5 ML VIAL INHALATION ×3 (02:17→20:17)
[2021-10-22] MEDS: ALBUTEROL SULFATE NEB 2.5 MG/0.5 ML INH INHALATION ×3 (02:17→20:17)
[2021-10-22 04:10] LABS: Hematocrit 29.9 % (42.0-52.0); Hemoglobin 9.8 g/dL (14.0-18.0); Mean Corpuscular HGB Conc 32.8 g/dl (32-36); Mean Corpuscular Hemoglobin 31.5 pg (26-34); Mean Corpuscular Volume 96.1 fl (80-100); Mean Platelet Volume 11.8 fl (7.4-10.4); Platelet Count Result 452 k/mm3 (150-375); Red Blood Count 3.11 M/mm3 (4.6-6.20); White Blood Count 24.6 K/mm3 (4.5-10.0)
[2021-10-22 04:36] LABS: Alanine Aminotransferase 12 U/L (4-50); Albumin Level 3.7 g/dL (3.5-5.1); Alkaline Phosphatase 228 U/L (38-126); Anion Gap 20 mmol/L (8-16); Aspartate Amino Transferase 30 U/L (17-59); Bilirubin,Total 0.9 mg/dL (0.2-1.3); Blood Urea Nitrogen 121 mg/dL (9-20); Calcium 9.2 mg/dL (8.4-10.2); Carbon Dioxide 22 mmol/L (22-30); Chloride 92 mmol/L (98-107); Estimated CRCL calculation 11 ml/min; Estimated Glomerular Filt Rate 7; Glucose 134 mg/dL (65-110); Magnesium 2.7 mg/dL (1.6-2.3); Phosphorus 6.9 mg/dL (2.5-4.5); Potassium 3.7 mmol/L (3.4-5.0); Sodium 134 mmol/L (137-145)
[2021-10-22 05:48] LABS: Alveolar/Arterial O2 Gradient 245.3 mmHg; Base Excess ABG -0.3 mEq/l (+/-2.0); Carboxyhemoglobin 0.2 % THb (0-2.0); Fractional Inspired Oxygen 55 %; HCO3 ABG 23.5 mEq/l (22.0-26.0); Methemoglobin ABG 0.1 %THb (0-1.5); Oxygen Content ABG 20.1 %vol (16.0-22.0); Oxygen Saturation ABG 98.1 % (95.0-100.0); Oxyhemoglobin 97.2 % THb (90.0-100.0); PCO2 ABG 35.9 mmHg (35.0-45.0); PO2 ABG 106.9 mmHg (80.0-100.0); PO2 FiO2 Ratio Arterial Blood 1.94 %; Reduced Hemoglobin 2.5 %THb (0-5.0); Total Hemoglobin 14.6 g/dL (12.0-18.0); pH ABG 7.434 (7.350-7.450)
[2021-10-22 05:49] LABS: Arterial Blood Gas PEEP 8 cmH2O; Arterial Blood Gas Vent Mode ASV; Device VENTILATOR; Site Drawn LEFT BRACHIAL
[2021-10-22] MEDS: HYDROCORTISONE SODIUM SUCCINATE 100 MG/2 ML VIAL 50 MG IV PUSH ×2 (06:10→20:40)
[2021-10-22] MEDS: MIDODRINE HCL 10 MG TABLET FEED TUBE ×2 (06:11→21:10)
[2021-10-22] MEDS: CENTRAL LINE FLUSH 10 ML IV PUSH (06:11)
--- NOTE | 2021-10-22 08:19 | WPDGIPROGNO ---
Progress Note: A&P Assessment and Plan (1) Respiratory failure: Code(s): J96.90 - Respiratory failure, unspecified, unspecified whether with hypoxia or hypercapnia Status: Acute (2) Ventilator dependence: Code(s): Z99.11 - Dependence on respirator [ventilator] status Status: Acute (3) Mediastinal mass: Code(s): J98.59 - Other diseases of mediastinum, not elsewhere classified Status: Acute (4) End-stage renal disease on peritoneal dialysis: Code(s): N18.6 - End stage renal disease; Z99.2 - Dependence on renal dialysis Status: Acute Assessment and Plan: Plan to defer PEG tube until peritoneal dialysis can be discontinued. I understand hemodialysis is to be started when access can be obtained. (5) Chronic anticoagulation: Code(s): Z79.01 - technician terminal and repeater (current) use of anticoagulants Status: Acute Assessment and Plan: Anticoagulation will need to be on hold when PEG tube placed. Additional Plan Plan for PEG tube. best to wait until no longer utilizing peritoneal dialysis. Peritoneal fluid will hinder healing of PEG tube. Perhaps surgical G-tube could be a option. Subjective Date/time seen: 10/22/21 08:19 Patient remains on ventilator. Now with tracheostomy. Nutrition via a NG tube. Currently remains on peritoneal dialysis. Review of Systems Review of Systems: ROS unobtainable: Yes unobtainable due to endotracheal tube Exam Narrative: On physical exam patient is alert but in on vent. HEENT exam reveals no icterus. Tolerating NG tube. Lungs reveal a few rhonchi. Heart without murmur. Abdomen is obese. Bowel sounds are present peritoneal dialysis catheter in place. Objective Data Vital Signs Vital Signs: Vital Signs - 24 hr 10/21/21 10:00 10/21/21 11:10 10/21/21 12:00 Temperature 98.8 F Pulse Rate 60 66 59 L Respiratory Rate 22 H 22 H Blood Pressure 110/66 104/69 Pulse Oximetry 92 93 95 10/21/21 13:48 10/21/21 13:51 10/21/21 13:57 Temperature Pulse Rate 58 L 58 L 59 L Respiratory Rate 26 H 24 H Blood Pressure Pulse Oximetry 96 10/21/21 14:00 10/21/21 16:00 10/21/21 17:06 Temperature 99 F Pulse Rate 59 L 57 L 57 L Respiratory Rate 16 20 Blood Pressure 122/76 117/65 Pulse Oximetry 92 93 95 10/21/21 18:00 10/21/21 20:00 10/21/21 20:18 Temperature 98.7 F Pulse Rate 60 57 L 56 L Respiratory Rate 22 H 22 H 12 Blood Pressure 125/72 122/64 Pulse Oximetry 94 95 96 10/21/21 20:36 10/21/21 22:00 10/21/21 23:20 Temperature Pulse Rate 58 L 58 L 63 Respiratory Rate 12 22 H Blood Pressure 123/68 Pulse Oximetry 94 92 10/22/21 00:00 10/22/21 02:00 10/22/21 02:20 Temperature 98.4 F Pulse Rate 58 L 61 58 L Respiratory Rate 22 H 22 H 24 H Blood Pressure 122/71 117/68 Pulse Oximetry 94 95 97 10/22/21 02:32 10/22/21 04:00 10/22/21 05:16 Temperature 98.7 F Pulse Rate 59 L 58 L 95 Respiratory Rate 24 H 24 H Blood Pressure 110/58 L Pulse Oximetry 94 62 L 10/22/21 06:00 Temperature Pulse Rate 64 Respiratory Rate 24 H Blood Pressure 128/45 L Pulse Oximetry 95 Intake/Output Intake/Output: Intake & Output 10/19/21 10/20/21 10/21/21 10/22/21 23:59 23:59 23:59 23:59 Intake Total 1191 375 8226 515 Output Total 417 1220 -1884 Balance 1154 -560 3304 515 Meds/Results Medications: Active Medications Generic Name Dose Route Start Last Admin Trade Name Freq PRN Reason Stop Dose Admin Hydrocodone Bitart/Acetaminophen 1 tab 10/16/21 07:42 10/16/21 10:20 Hydrocodone/Acetaminophen (*Crx) 10-325 Mg Tablet PO 1 tab Q4H PRN Administration Pain Rated 4-6 Albuterol 2.5 mg 10/13/21 14:00 10/22/21 02:17 Albuterol Sulfate Neb 2.5 Mg/0.5 Ml Inh INHALATION 2.5 mg Q6HRT CHELSEY Administration Allopurinol 100 mg 10/04/21 08:00 10/21/21 08:07 Allopurinol 100 Mg Tablet PO 100 mg DAILY@0800 [facility] Administration Apixaban 5 mg
[2021-10-22] MEDS: DORNASE ALFA INH SOLN 1 MG/ML 2.5 ML AMP 2.5 MG INHALATION ×2 (08:30→20:18)
[2021-10-22] MEDS: DORZOLAMIDE/TIMOLOL OPHTH SOL 10 ML BOTTLE 1 DROP EACH EYE ×2 (08:46→20:40)
[2021-10-22] MEDS: BRIMONIDINE TARTRATE 0.2% OP SOLN 5 ML BTL 1 DROP EACH EYE ×2 (08:46→20:40)
[2021-10-22] MEDS: PANTOPRAZOLE SODIUM IV 40 MG VIAL IV PUSH (08:47)
[2021-10-22] MEDS: MINERAL OIL/WHITE PETROLATUM OINTMENT 1 APPLIC EACH EYE ×2 (08:47→20:40)
[2021-10-22] MEDS: SILVER SULFADIAZINE 1% CR 50 GM JAR (*BKC) 1 APPLIC TOPICAL (08:48)
[2021-10-22] MEDS: SOD HYPOCHLORITE 1/4 STRENGTH 473 ML 1 APPLIC TOPICAL (08:48)
[2021-10-22] MEDS: MUPIROCIN 2% OINT 22 GM TUBE 1 APPLIC TOPICAL (08:49)
[2021-10-22 09:16] LABS: Glucose Point of Care 101 mg/dl (65-105)
--- NOTE | 2021-10-22 09:37 | PM.PNNEP ---
Progress Note: A&P Assessment and Plan (1) End-stage renal disease (ESRD): Code(s): N18.6 - End stage renal disease Status: Acute Assessment and Plan: continue CCPD treatment tonight. Two greens and a red Tunneled dialysis catheter to go in this afternoon. Will change from PD to hemodialysis when catheter in. (2) Cardiac arrest: Code(s): I46.9 - Cardiac arrest, cause unspecified Status: Acute Assessment and Plan: Cardiology on the case (3) Acute respiratory failure with hypoxia: Code(s): J96.01 - Acute respiratory failure with hypoxia Status: Acute Assessment and Plan: He is on the ventilator He has a trach FiO2 up. Will try to remove more fluid with either HD or PD. (4) Hyponatremia: Code(s): E87.1 - Hypo-osmolality and hyponatremia Status: Acute Assessment and Plan: still low but stable, varying around 130. (5) Hypotension: Code(s): I95.9 - Hypotension, unspecified Status: Acute Assessment and Plan: Blood pressure Running in the 100-130 range. Off pressors. (6) Bradycardia: Code(s): R00.1 - Bradycardia, unspecified Status: Chronic Assessment and Plan: Doing well . Heart rate in the 60s. (7) Anemia: Code(s): D64.9 - Anemia, unspecified Status: Chronic Assessment and Plan: due to ESRD and possibly acute illness on Epogen Ten thousand 3 times a week Hemoglobin 9.8 Subjective Date/time seen: 10/22/21 09:37 Interval history: The patient is being seen for end-stage renal disease. The patient is on the ventilator.Still having some oxygenation problems. He wakens when I call his name and nods his head yes and no to questions. On PD and tolerating it well. He had 2400cc off last night. Will continue same prescription. He was seen at 8:00 a.m. Tunneled catheter to be placed today. I talked with Dr. Quintana. Going to try the right IJ. He should not have a subclavian catheter because of future fistula possibilities. Consider groin tunneled catheter? No need for a temporary catheter as the PD is working fine. Exam Narrative: General: WD/WN male intubatedand on mechanical ventilation Heart: normal S1 and S2; no rub Lungs: coarse breath sounds bilaterally Abdomen: obese but soft, nontender, nondistended, positive bowel sounds; PD catheter in place Extremities: Trace to 1+ chronic bilateral edema Skin: No acute rash or subcu nodules Objective Data Vital Signs Vital Signs: Vital Signs - 24 hr 10/21/21 10:00 10/21/21 11:10 10/21/21 12:00 Temperature 37.1 C Pulse Rate 60 66 59 L Respiratory Rate 22 H 22 H Blood Pressure 110/66 104/69 Pulse Oximetry 92 93 95 10/21/21 13:48 10/21/21 13:51 10/21/21 13:57 Temperature Pulse Rate 58 L 58 L 59 L Respiratory Rate 26 H 24 H Blood Pressure Pulse Oximetry 96 10/21/21 14:00 10/21/21 16:00 10/21/21 17:06 Temperature 37.2 C Pulse Rate 59 L 57 L 57 L Respiratory Rate 16 20 Blood Pressure 122/76 117/65 Pulse Oximetry 92 93 95 10/21/21 18:00 10/21/21 20:00 10/21/21 20:18 Temperature 37.1 C Pulse Rate 60 57 L 56 L Respiratory Rate 22 H 22 H 12 Blood Pressure 125/72 122/64 Pulse Oximetry 94 95 96 10/21/21 20:36 10/21/21 22:00 10/21/21 23:20 Temperature Pulse Rate 58 L 58 L 63 Respiratory Rate 12 22 H Blood Pressure 123/68 Pulse Oximetry 94 92 10/22/21 00:00 10/22/21 02:00 10/22/21 02:20 Temperature 36.9 C Pulse Rate 58 L 61 58 L Respiratory Rate 22 H 22 H 24 H Blood Pressure 122/71 117/68 Pulse Oximetry 94 95 97 10/22/21 02:32 10/22/21 04:00 10/22/21 05:16 Temperature 37.1 C Pulse Rate 59 L 58 L 95 Respiratory Rate 24 H 24 H Blood Pressure 110/58 L Pulse Oximetry 94 62 L 10/22/21 06:00 10/22/21 08:00 10/22/21 08:30 Temperature 37.2 C Pulse Rate 64 59 L 61 Respiratory Rate 24 H 26
--- NOTE | 2021-10-22 10:55 | PM.IMPN ---
Progress Note: A&P Assessment and Plan (1) Acute hyperkalemia: Code(s): E87.5 - Hyperkalemia Status: Acute Assessment and Plan: Nephrology consult patient receive Lokelma 10 g x1. resolved . Continue peritoneal dialysis nephrology consulted (2) Chronic kidney failure: Code(s): N18.9 - Chronic kidney disease, unspecified Status: Acute Assessment and Plan: Nephrology has been consult and do appreciate further recommendations. defer all recommendations for dialysis orders to Nephrology. Plan for hemodialysis and DC peritoneal dialysis Tunneled catheter was placed by and intervention Radiology on 10/22/2021 after failed attempt on 10/21/2021 due to abnormal anatomy (3) Bradycardia: Code(s): R00.1 - Bradycardia, unspecified Status: Chronic Assessment and Plan: Patient has chronic atrial fibrillation with a slow ventricular rate and is asymptomatic. It has been discussed that patient may need a pacemaker/ICD placed but at this time patient's management consulting at [facility] is not decided to place another device. Patient to patient had cardiac arrest cardiology following currently in ICU Status post Dopamine drip 10/06/21 Cardiology following (4) Community acquired pneumonia: Code(s): J18.9 - Pneumonia, unspecified organism Status: Acute Assessment and Plan: Patient's CT scan shows a left pleural effusion with left infiltrates. Continue IV antibiotic. Sputum culture was positive for E coli antibiotic was adjusted by coil repair technician CT scan as below 1. Small right and large left pleural effusions. 2. Acute fractures of left second-sixth ribs. 3. 3.8 x 1.7 cm anterior mediastinal mass, increased from 1.9 x 1.6 cm on 10/03/21. This finding may be a combination of hematoma and a pre-existing mass such as thymoma or lymphoma. Repeat CT scan of the chest 10/07/2021 5. Small volume of ascites with peritoneal dialysis catheter (5) Status post fall: Code(s): Z91.81 - History of falling Status: Acute Assessment and Plan: PT OT evaluation (6) Acute respiratory failure with hypoxia: Code(s): J96.01 - Acute respiratory failure with hypoxia Status: Acute Assessment and Plan: Secondary to cardiac arrest on 10/04/2021 Status post CPR intubation admission to the ICU Probably multifactorial secondary to pneumonia pulmonary edema and pleural effusion May need aspiration of left pleural effusion Sputum culture grows E coli (7) Abnormal CT scan, chest: Code(s): R93.89 - Abnormal findings on diagnostic imaging of other specified body structures Status: Acute Assessment and Plan: 1. Small right and large left pleural effusions. Monitor 2. Acute fractures of left second-sixth ribs. Pain control 3. 3.8 x 1.7 cm anterior mediastinal mass, increased from 1.9 x 1.6 cm on 10/03/21. This finding may be a combination of hematoma and a pre-existing mass such as thymoma or lymphoma. Follow-up with PCP as outpatient (8) Ischemia of left upper extremity: Code(s): I99.8 - Other disorder of circulatory system Status: Acute Assessment and Plan: Evaluated by coil repair technician on 10/17/2021 top blood negative for ischemia continue Eliquis Subjective Date/time seen: 10/22/21 10:55 Interval history: Narrative: Mr. Gomez is a 65-year-old gentleman who presented to emergency room after tripping over the last step of his stairs and fell and struck his knees and his head. Patient states he only reason he came to the emergency room was secondary to the fact that he is on Eliquis and he was worried that he may have bleeding in his brain. Patient denies any loss of conscious, lightheadedness, dizziness, syncopal, or near syncopal episodes. Patient denies any chest discomfort, shortness breath, or palpitations prior to this episode. Patient denies any abdominal pain, nausea, vomiting, constipation, or diarrhea. Patient states he is a perit
--- NOTE | 2021-10-22 11:27 | WPDINTPN ---
Progress Note: A&P Assessment and Plan (1) Acute respiratory failure with hypoxia: Code(s): J96.01 - Acute respiratory failure with hypoxia Status: Acute Assessment and Plan: Acute Respiratory failure secondary to cardiac arrest, pneumonia, pulmonary edema, left pleural effusion. Intubated on 10/04/2021 during code blue - Continue full mechanical ventilation support to prevent hypoxemia/hypercarbia and end organ damage. -most recent PCXR reviewed -patient has been on ASV mode with 35% FiO2 and 8 of PEEP. -off all sedation since 10/09 -10/07/2021: Sputum culture growing E coli, sensitive to cefepime, Zosyn, imipenem and gentamicin. - 10/11 -repeat Sputum culture still growing E coli ESBL which is sensitive to imipenem --10/14 DC Vanc, changed Zosyn to imipenem -patient tolerated only few hours of PSV 16/02 yesterday. Will try again today -tracheostomy done on 10/17/2021 10/09/2021: CT chest, abdomen, pelvis without contrast 1. Small right and moderate left pleural effusions with collapse of the bilateral lower lobes with additional dependent compressive atelectasis. 2. Cardiomegaly. 3. Nonspecific 2.2 x 1.4 cm anterior mediastinal mass with differential including enlarged lymph node or thymoma. 4. Small volume of ascites with peritoneal dialysis catheter. (2) End-stage renal disease on peritoneal dialysis: Code(s): N18.6 - End stage renal disease; Z99.2 - Dependence on renal dialysis Status: Acute Assessment and Plan: patient is being followed by Nephrology and is currently peritoneal dialysis. -discussed with nephrology. Patient will need a PEG tube, Dr. Combs plans to transition him to hemodialysis. - surgery has been consulted for tunneled dialysis catheter placement, unable to access left subclavian on 10/20. -discussed with surgery patient to go and get a right-sided tunneled IJ dialysis catheter placed today - 10/22/21 (3) Cardiac arrest: Code(s): I46.9 - Cardiac arrest, cause unspecified Status: Acute Assessment and Plan: Its possible patient's cardiac arrest secondary to junctional bradycardia or slow AFib Troponins, although mildly elevated in presence of end-stage renal disease, remained flat EKG showed AFib/ junctional bradycardia with heart rate in 40s -off dopamine 4/10 - off Levophed 10/18 - he may need transvenous pacemaker and I have discussed with Cardiology - cardiology is following - continue Eliquis -repeat head CT on 10/09: No acute intracranial findings or interval change, mild atrophy and microangiopathy. -patient opens his eyes to name and follows simple commands in all extremities 10/06/2021 Echo: - mild LVH; moderate-severe LV systolic dysfunction, ejection fraction about 30-35% - Moderate-severe aortic stenosis - Moderate pulmonary hypertension, RVSP 54 mmHg (4) Persistent atrial fibrillation: Code(s): I48.19 - Other persistent atrial fibrillation Status: Acute Assessment and Plan: currently in junctional bradycardia/sinus Jacinto- see above Eliquis was resumed after tracheostomy but now on hold for tunnel dialysis catheter placement (5) Bradycardia: Code(s): R00.1 - Bradycardia, unspecified Status: Chronic Assessment and Plan: see above (6) Pneumonia: Code(s): J18.9 - Pneumonia, unspecified organism Status: Acute Assessment and Plan: patient on the floor was being treated for community-acquired pneumonia antibiotics were broadened after intubation as possible patient may have aspirated 10/03/2021 Blood cultures: Negative Procalcitonin level 6.4 10/08: leukocystosis persists -10/07/2021: Sputum culture -growing E coli, sensitive to cefepime, Zosyn, imipenem and gentamicin - 10/11 -repeat culture still growing E coli ESBL sensitive to imipenem -10/14 DC vanc, changed Zosyn to imipenem - increase in WBC likely secondary to steroids as patient continues to be afebrile and hemodyna
--- NOTE | 2021-10-22 11:28 | PCFNICU ---
ICU Rounding Note: Pt current nutrition is Nepro at 60 ml/hr over 22 hours. Last recorded weight is 120.3 kg-stable Bowel Motility:+BM reported 10/22 Labs Reviewed:Glu 134,Cr 7.6,GFR 7 Meds Noted:Phoslo, Atrovent, Midodrine,Protonix, Crestor, Retacrit, Zyloprim Skin: left lower leg-venous status, right foot-DM ulcer Additional Notes: Patient current with Trach ASV mode. Tube feedings are currently on hold for tunneled cath today. Nutrition Recommendations to continue with Nepro at 60 ml/hr over 22 hours, providing 2376 kcals/107 gms protein/960 ml water. Free water flush 30 ml q 4 hours. Agree with diet orders. Following daily in ICU rounds. Will be reassessing every Wednesday and Wednesday.
--- NOTE | 2021-10-22 11:49 | WPDHPUPDATE1 ---
History and Physical Update Update Date/Time: 10/22/21 11:49 History and Physical has been reviewed, including an updated exam of the patient. There are changes in the patient's condition. Patient now has had the percutaneous right IJ central line used while he was septic removed and has been out for approximately 24 hours. He now has a peripheral IV through which he is receiving IV fluids and antibiotics. He is also off pressors at this time. I had a thorough discussion with Dr. Chaparro Hammonds and Dr. Combs regarding the plan for this surgical intervention. They would like me to try to get a tunneled dialysis catheter in place to start hemodialysis. We have agreed that if I am unsuccessful in placing the catheters via the right internal jugular vein we will stop and not proceed to other attempted IV access sites. 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 Also patient may be in need of an arteriovenous fistula for hemodialysis in his right arm and placing a right subclavian vein temporary dialysis catheter may alter that venous system and make that subsequent arteriovenous fistula untenable.. The patient is currently on antibiotics so no preop antibiotic will be needed. Risks, benefits, and alternatives have been discussed with his /POA and questions answered. They agrees to proceed with procedure.
[2021-10-22 12:53] LABS: Glucose Point of Care 112 mg/dl (65-105)
[2021-10-22] MEDS: HEPARIN SODIUM 1,000 UNITS/ML VIAL 1000 UNITS IV PUSH (14:01)
[2021-10-22] MEDS: HEPARIN SODIUM, PORCINE 10,000 UNITS/10 ML VIAL 4000 UNITS IV PUSH (14:22)
--- NOTE | 2021-10-22 14:28 | WPDANESEPPF ---
Anes - Initial Pre Proc Eval Procedure: Operation Date: 10/22/21 13:30 Proposed Procedures p Insertion Tunneled Dialysis Catheter - Nikita Quintana MD Date/Time: 10/22/21 14:28 Surgeon: Mian Mesa MD Pre Op Diagnosis: Hyperkalemia/chronic renal failure/community acqui Patient Data Age: 65 Gender: M Height: 1.78 m Weight: 120.3 kg Last Vital Signs Temp 37.2 C 10/22/21 09:16 Pulse 61 10/22/21 12:00 Resp 27 H 10/22/21 12:00 BP 120/50 L 10/22/21 12:00 Pulse Ox 98 10/22/21 12:00 Allergies Allergy/AdvReac Type Severity Reaction Status Date / Time heparin Allergy Severe Unknown Verified 10/05/21 10:06 perflutren [From Definity] Allergy Severe Back Pain Verified 10/05/21 10:07 shellfish derived Allergy Intermediate Unknown Verified 10/03/21 13:03 iohexol Allergy Unknown Unknown Verified 10/03/21 13:03 [From contrast - CT, X-RAY] spironolactone Allergy Unknown Unknown Verified 10/03/21 13:03 [From Aldactone] Vfeppeh-FYS-GmH Reductase Allergy Unknown Unknown Verified 10/03/21 13:03 Inhibitor [Ndbyuws-Gbx-Eti Reductase Inhibitor] Home Medications Medication Instructions Recorded Confirmed Type Eliquis 5 mg PO Q12H 04/06/20 10/04/21 History allopurinol 100 mg PO DAILY 04/06/20 10/03/21 History brimonidine 0.2 % OPHTHALMIC (EYE) Q12H 04/06/20 10/04/21 History dorzolamide-timolol 1 drp OPHTHALMIC (EYE) Q12H 04/06/20 10/04/21 History gabapentin 300 mg PO Q12H 04/06/20 10/04/21 History insulin aspart U-100 [Novolog See Rx Instructions .ROUTE .COMPLEX 04/06/20 10/03/21 History Flexpen U-100 Insulin] rosuvastatin 10 mg PO HS 04/06/20 10/04/21 History alprazolam 0.25 mg PO BID PRN 05/24/20 10/03/21 History duloxetine 60 mg PO DAILY 05/24/20 10/03/21 History bumetanide 2 mg PO ,06/20/20 10/04/21 History sevelamer carbonate 1,600 mg PO TIDWM 06/20/20 10/04/21 History diphenhydramine HCl [Benadryl] 50 mg PO HS 10/03/21 10/03/21 History ergocalciferol (vitamin D2) 1,250 mcg PO WEEKLY 10/03/21 10/03/21 History [Vitamin D2] lisinopril 2.5 mg PO HS 10/03/21 10/03/21 History mupirocin 1 applic TOPICAL DAILY 10/03/21 10/03/21 History silver sulfadiazine 1 applic TOPICAL DAILY 10/03/21 10/03/21 History sodium chlor-hypochlorous acid 1 ea IRRIGATION DAILY 10/03/21 10/03/21 History [Vashe Wound Therapy] Laboratory Tests 10/21/21 10/21/21 10/22/21 16:03 20:50 00:00 WBC RBC Hgb Hct MCV MCH MCHC RDW Plt Count MPV Puncture Site ABG pH ABG pCO2 ABG pO2 ABG PO2/FiO2 Ratio ABG HCO3 ABG O2 Saturation ABG O2 Content ABG Base Excess A-a Gradient Oxyhemoglobin Carboxyhemoglobin Methemoglobin Reduced Hemoglobin Total Hemoglobin O2 Delivery Device O2 Liters/Min Minute Volume Vent Rate Vent Mode FiO2 Tidal Volume PEEP Peak Inspir Pressure Pressure Support Sodium Potassium Chloride Carbon Dioxide Anion Gap BUN Creatinine Estim Creat Clear Calc Estimated GFR Glucose POC Capillary Glucose 273 mg/dl H mg/dl 308 mg/dl H mg/dl 332 mg/dl H mg/dl (65-105) (65-105) (65-105) Calcium Phosphorus Magnesium Total Bilirubin AST ALT Alkaline Phosphatase Total Protein Albumin 10/22/21 10/22/21 10/22/21 03:37 03:37 05:18 WBC 24.6 K/mm3 H K/mm3 (4.5-10.0) RBC 3.11 M/mm3 L M/mm3 (4.6-6.20) Hg
--- NOTE | 2021-10-22 14:50 | W.PM.PROC2 ---
Procedure Note - Detailed Date of Procedure 10/22/21 Pre-op Diagnosis Hyperkalemia/chronic renal failure. Post-op Diagnosis Same Procedure Performed Ultrasound-guided placement of tunneled dialysis catheter. Surgeon Nikita Quintana MD Boom Boss Sweta CHÁVEZ.OR clerical administrative assistant Anesthesia General and Other (GIVS) Indications The patient has end-stage renal disease with need for access for hemodialysis Findings Normal Vascular anatomy in the Rt. neck. As best I could tell the carotid artery was directly behind the fairly large right jugular vein. Description of Procedure The patient was placed in the supine position on the operating table and after induction of adequate mask general anesthesia by the nurse ceo [place], we carefully rotated the patient's head and tilted slightly to the left then prepping both sides of the neck and chest with chlorhexidine. After waiting 3 minutes I carefully draped the patient, and we performed a time-out confirming the patient's site of surgery. Because of the patients size, a 32 cm DuraFlow catheter was selected. Using the ultrasound probe we carefully examined the anatomy in the right neck and saved a image of this in the chart. I used ultrasound to identify the right jugular vein in the mid neck and this was cannulated under direct vision with an 18-gauge Arrow needle on a syringe. Good dark blood was aspirated, the J-guidewire was advanced through the needle and into the central venous system using the usual Seldinger technique. C-arm fluoroscopy was used to confirm that the wire was then through the central venous system and then we removed the needle and blue guide off the wire. Following this, we measured the DuraFlow catheter such that the tip would be just into the right atrium or in the distal superior vena cava. A hemostat was placed on the drapes over the chest to guide where we would place this. Then the catheter was measured back to the entry site of the J- wire in a curvilinear fashion and down to the patient's chest overlying the right clavicle. Local anesthetic was placed into 3 joel, the exit site and then 2 more on the patient's lateral neck such that a curvilinear path could be dissected through the subcutaneous tissues up to the insertion site on he patients right neck. Local anesthetic was infiltrated along the tract prior to tunneling. Incisions were made with a 15 blade knife at the exit site and the 2 counter incisions and then an 11 blade at the wire. The tunneling device was connected to the catheter and this was pulled through these incisions to make the subcutaneous tunnel a curvilinear course through the subcutaneous tissues to the insertion site. Then the wire was serially dilated with a 12, 14, and then a 16-Moldovan dilator over the pull away sheath. We watched the 16-Moldovan dilator and sheath go down into the central venous system with C-arm fluoroscopy and then removed the dilator wire after carefully covering the end of the catheter. I lost some blood, as we then inserted the catheter down into the central venous system. The catheter was held in place with a DeBakey forceps and then we carefully tore away the sheath leaving the catheter within the subcutaneous tissues and down into the jugular vein. Following this, C-arm fluoroscopy was used to examine the full course of the catheter. The tip was just into the right atrium and there was a good curvilinear course of the catheter in the neck down to the exit site over the right clavicle. Minimal bleeding was continuing, so we then went ahead and closed these incisions with some buried subcutaneous sutures of 4-0 Monocryl directly over the catheter at the insertion site and then buried subcutaneous sutures at each of the incisions except the exit site. Because the patient's tissues were pretty thick a subcutaneous suture was placed 1st at each side and then a more superficial subcuticular suture was placed. 3-0 nylon was used to sutu
--- NOTE | 2021-10-22 16:16 | PC.NURSE ---
Four trach sutures left intact, per Dr. Quintana directions. Trach ties changed without complication, patient tolerated well. Will continue to monitor closely.
[2021-10-22 17:15] LABS: Glucose Point of Care 122 mg/dl (65-105)
[2021-10-22] MEDS: CALCIUM ACETATE 667 MG TABLET 1334 MG FEED TUBE (17:22)
[2021-10-22] MEDS: EPOETIN ALFA-EPBX 10,000 UNITS/ML VIAL 10000 UNITS SUB-Q (17:26)
[2021-10-22] MEDS: ROSUVASTATIN 10 MG TABLET PO (21:10)
[2021-10-22 21:16] LABS: Glucose Point of Care 109 mg/dl (65-105)
[2021-10-22 21:16] LABS: Glucose Point of Care 109 mg/dl (65-105)
[2021-10-23] VITALS (34 sets, daily range): BP systolic 92–131; BP diastolic 56–77; PULSE 48–63; RESP 12–25; TEMP 36.3–37.2; O2SAT 95–99
[2021-10-23 00:16] LABS: Glucose Point of Care 138 mg/dl (65-105)
[2021-10-23] MEDS: IPRATROPIUM BR 0.02% INH SOLN 0.5 MG/2.5 ML VIAL INHALATION ×4 (01:26→20:35)
[2021-10-23] MEDS: ALBUTEROL SULFATE NEB 2.5 MG/0.5 ML INH INHALATION ×4 (01:26→20:35)
[2021-10-23 04:47] LABS: Alveolar/Arterial O2 Gradient 126.3 mmHg; Base Excess ABG -1.8 mEq/l (+/-2.0); Carboxyhemoglobin 0.3 % THb (0-2.0); Fractional Inspired Oxygen 35 %; HCO3 ABG 21.4 mEq/l (22.0-26.0); Methemoglobin ABG 0.2 %THb (0-1.5); Oxygen Content ABG 16.7 %vol (16.0-22.0); Oxyhemoglobin 95.6 % THb (90.0-100.0); PO2 ABG 86.1 mmHg (80.0-100.0); PO2 FiO2 Ratio Arterial Blood 2.46 %; Reduced Hemoglobin 3.9 %THb (0-5.0); Total Hemoglobin 12.4 g/dL (12.0-18.0); pH ABG 7.444 (7.350-7.450)
[2021-10-23 04:48] LABS: Arterial Blood Gas PEEP 8 cmH2O; Arterial Blood Gas Vent Mode ASV; Device VENTILATOR; Modified Allen's Test Pass; Site Drawn LEFT RADIAL
[2021-10-23 04:49] LABS: Basophils Absolute Auto 0.1 K/mm3 (0.0-0.1); Basophils Percent Auto 0.3 % (0.2-1.2); Eosinophils Absolute Auto 0.1 K/mm3 (0-0.3); Eosinophils Percent Auto 0.3 % (0-4.4); Hematocrit 31.2 % (42.0-52.0); Hemoglobin 10.5 g/dL (14.0-18.0); Immature Granulocyte Absolute 0.52 K/mm3 (0.00-0.031); Immature Granulocyte Percent A 2.5 % (0-0.5); Lymphocytes Absolute Auto 1.12 K/mm3 (0.9-3.2); Lymphocytes Percent Auto 5.5 % (18.3-44.2); Mean Corpuscular HGB Conc 33.7 g/dl (32-36); Mean Corpuscular Hemoglobin 31.3 pg (26-34); Mean Corpuscular Volume 93.1 fl (80-100); Monocytes Absolute Auto 1.2 K/mm3 (0.1-0.6); Neutrophils Absolute Auto 17.5 K/mm3 (1.3-6.7); Neutrophils Percent Auto 85.4 % (45.5-73.1); Nucleated Red Blood Cells Absolute Auto 0.2 K/mm3 (0.0-0.012); Nucleated Red Blood Cells Perc 0.8 % (0.0-0.2); Platelet Count Result 419 k/mm3 (150-375); Red Blood Count 3.35 M/mm3 (4.6-6.20); Red Cell Distribution Width 18.3 % (11.5-14.5); White Blood Count 20.5 K/mm3 (4.5-10.0)
[2021-10-23 05:14] LABS: Alanine Aminotransferase 11 U/L (4-50); Albumin Level 3.4 g/dL (3.5-5.1); Alkaline Phosphatase 209 U/L (38-126); Anion Gap 19 mmol/L (8-16); Aspartate Amino Transferase 35 U/L (17-59); Calcium 8.7 mg/dL (8.4-10.2); Carbon Dioxide 21 mmol/L (22-30); Chloride 91 mmol/L (98-107); Estimated CRCL calculation 10 ml/min; Estimated Glomerular Filt Rate 6; Glucose 158 mg/dL (65-110); Magnesium 2.8 mg/dL (1.6-2.3); Phosphorus 8.8 mg/dL (2.5-4.5); Potassium 4.7 mmol/L (3.4-5.0); Sodium 131 mmol/L (137-145)
[2021-10-23 05:37] LABS: Blood Urea Nitrogen 136 mg/dL (9-20)
[2021-10-23] MEDS: MIDODRINE HCL 10 MG TABLET FEED TUBE ×3 (06:10→22:16)
[2021-10-23] MEDS: HYDROCORTISONE SODIUM SUCCINATE 100 MG/2 ML VIAL 50 MG IV PUSH ×3 (06:11→22:15)
[2021-10-23 08:08] LABS: Glucose Point of Care 219 mg/dl (65-105)
[2021-10-23] MEDS: DORNASE ALFA INH SOLN 1 MG/ML 2.5 ML AMP 2.5 MG INHALATION ×2 (08:35→20:35)
[2021-10-23] MEDS: MINERAL OIL/WHITE PETROLATUM OINTMENT 1 APPLIC EACH EYE (08:46)
[2021-10-23] MEDS: BRIMONIDINE TARTRATE 0.2% OP SOLN 5 ML BTL 1 DROP EACH EYE ×2 (08:46→20:14)
[2021-10-23] MEDS: PANTOPRAZOLE SODIUM IV 40 MG VIAL IV PUSH (08:46)
[2021-10-23] MEDS: DORZOLAMIDE/TIMOLOL OPHTH SOL 10 ML BOTTLE 1 DROP EACH EYE ×2 (08:46→20:14)
[2021-10-23] MEDS: allopurinoL 100 MG TABLET PO (08:47)
[2021-10-23] MEDS: CALCIUM ACETATE 667 MG TABLET 1334 MG FEED TUBE ×3 (08:47→18:05)
[2021-10-23] MEDS: SILVER SULFADIAZINE 1% CR 50 GM JAR (*BKC) 1 APPLIC TOPICAL (08:48)
[2021-10-23] MEDS: MUPIROCIN 2% OINT 22 GM TUBE 1 APPLIC TOPICAL (08:48)
[2021-10-23] MEDS: SOD HYPOCHLORITE 1/4 STRENGTH 473 ML 1 APPLIC TOPICAL (08:48)
[2021-10-23] MEDS: INSULIN ASPART (*BKC) 100 UNITS/ML SUB-Q ×3 (08:59→20:14)
[2021-10-23] MEDS: INSULIN GLARGINE (*BKC) 100 UNITS/ML 45 UNITS SUB-Q ×2 (09:00→20:15)
--- NOTE | 2021-10-23 09:59 | PM.PNNEP ---
Progress Note: A&P Assessment and Plan (1) End-stage renal disease (ESRD): Code(s): N18.6 - End stage renal disease Status: Acute Assessment and Plan: continue CCPD treatment tonight. all greens tonight Tunneled dialysis catheter in place. Will start hemodialysis Today (2) Cardiac arrest: Code(s): I46.9 - Cardiac arrest, cause unspecified Status: Acute Assessment and Plan: Cardiology on the case (3) Acute respiratory failure with hypoxia: Code(s): J96.01 - Acute respiratory failure with hypoxia Status: Acute Assessment and Plan: He is on the ventilator He has a trach (4) Hyponatremia: Code(s): E87.1 - Hypo-osmolality and hyponatremia Status: Acute Assessment and Plan: still low but stable, varying around 130. (5) Hypotension: Code(s): I95.9 - Hypotension, unspecified Status: Acute Assessment and Plan: Blood pressure doing better off pressors. (6) Bradycardia: Code(s): R00.1 - Bradycardia, unspecified Status: Chronic Assessment and Plan: Doing well (7) Anemia: Code(s): D64.9 - Anemia, unspecified Status: Chronic Assessment and Plan: due to ESRD and possibly acute illness on Epogen Ten thousand 3 times a week hemoglobin up to 10.5 Subjective Date/time seen: 10/23/21 09:59 Interval history: The patient is being seen for end-stage renal disease. The patient is on the ventilator. Oxygenation improved. FiO2 is down to 35%. He wakens when I call his name and nods his head yes and no to questions. Tunneled catheter was placed yesterday successfully. Peritoneal dialysis held last night in anticipation of PEG tube at some point. I talked with Dr. Bryan in let him know. Will do hemodialysis today. Exam Narrative: General: WD/WN male intubatedand on mechanical ventilation Heart: normal S1 and S2; no rub or gallop Lungs: coarse breath sounds bilaterally Abdomen: obese but soft, nontender, nondistended, positive bowel sounds; PD catheter in place Extremities: Trace to 1+ chronic bilateral edema Skin: No acute rash or subcu nodules hemodialysis catheter in place Objective Data Vital Signs Vital Signs: Vital Signs - 24 hr 10/22/21 10:00 10/22/21 10:36 10/22/21 12:00 Temperature Pulse Rate 62 80 61 Respiratory Rate 21 H 27 H Blood Pressure 120/54 L 120/50 L Pulse Oximetry 100 100 98 10/22/21 15:22 10/22/21 16:00 10/22/21 16:49 Temperature 37.1 C Pulse Rate 65 59 L 80 Respiratory Rate 20 17 Blood Pressure 115/70 105/56 L Pulse Oximetry 98 97 98 10/22/21 18:00 10/22/21 20:00 10/22/21 20:18 Temperature 36.9 C Pulse Rate 62 60 58 L Respiratory Rate 27 H 18 13 Blood Pressure 110/69 96/56 L Pulse Oximetry 64 L 99 10/22/21 20:22 10/22/21 20:32 10/22/21 22:00 Temperature Pulse Rate 60 55 L 61 Respiratory Rate 21 H 17 Blood Pressure 90/68 L Pulse Oximetry 100 98 10/22/21 23:00 10/22/21 23:25 10/23/21 00:00 Temperature 36.8 C Pulse Rate 54 L 57 L Respiratory Rate 21 H Blood Pressure 101/62 95/64 L Pulse Oximetry 99 98 10/23/21 01:26 10/23/21 01:28 10/23/21 01:34 Temperature Pulse Rate 60 57 L 60 Respiratory Rate 25 H 17 Blood Pressure Pulse Oximetry 97 10/23/21 02:00 10/23/21 04:00 10/23/21 04:10 Temperature 37.2 C Pulse Rate 60 58 L 60 Respiratory Rate 12 16 Blood Pressure 98/57 L 92/66 L Pulse Oximetry 97 96 96 10/23/21 06:00 10/23/21 08:36 10/23/21 08:40 Temperature Pulse Rate 63 58 L 62 Respiratory Rate 24 H 16 Blood Pressure 108/61 Pulse Oximetry 99 96 10/23/21 08:45 Temperature Pulse Rate 60 Respiratory Rate 16 Blood Pressure Pulse Oximetry Intake/Output Intake/Output: Intake & Output 10/20/21 10/21/21 10/22/21 10/23/21 23:59 23:59 23:59 23:59 Intake Total 660 1520 755 692 Output Total 12
--- NOTE | 2021-10-23 10:27 | PM.IMPN ---
Progress Note: A&P Assessment and Plan (1) Acute hyperkalemia: Code(s): E87.5 - Hyperkalemia Status: Acute Assessment and Plan: Nephrology consult patient receive Lokelma 10 g x1. resolved . Continue peritoneal dialysis nephrology consulted (2) Chronic kidney failure: Code(s): N18.9 - Chronic kidney disease, unspecified Status: Acute Assessment and Plan: Nephrology has been consult and do appreciate further recommendations. defer all recommendations for dialysis orders to Nephrology. Plan for hemodialysis and DC peritoneal dialysis Tunneled catheter was placed by and intervention Radiology on 10/22/2021 after failed attempt on 10/21/2021 due to abnormal anatomy (3) Bradycardia: Code(s): R00.1 - Bradycardia, unspecified Status: Chronic Assessment and Plan: Patient has chronic atrial fibrillation with a slow ventricular rate and is asymptomatic. It has been discussed that patient may need a pacemaker/ICD placed but at this time patient's engine repairer at [facility] is not decided to place another device. Patient to patient had cardiac arrest cardiology following currently in ICU Status post Dopamine drip 10/06/21 Cardiology following (4) Community acquired pneumonia: Code(s): J18.9 - Pneumonia, unspecified organism Status: Acute Assessment and Plan: Patient's CT scan shows a left pleural effusion with left infiltrates. Continue IV antibiotic. Sputum culture was positive for E coli antibiotic was adjusted by lace weaver CT scan as below 1. Small right and large left pleural effusions. 2. Acute fractures of left second-sixth ribs. 3. 3.8 x 1.7 cm anterior mediastinal mass, increased from 1.9 x 1.6 cm on 10/03/21. This finding may be a combination of hematoma and a pre-existing mass such as thymoma or lymphoma. Repeat CT scan of the chest 10/07/2021 5. Small volume of ascites with peritoneal dialysis catheter (5) Status post fall: Code(s): Z91.81 - History of falling Status: Acute Assessment and Plan: PT OT evaluation (6) Acute respiratory failure with hypoxia: Code(s): J96.01 - Acute respiratory failure with hypoxia Status: Acute Assessment and Plan: Secondary to cardiac arrest on 10/04/2021 Status post CPR intubation admission to the ICU Probably multifactorial secondary to pneumonia pulmonary edema and pleural effusion May need aspiration of left pleural effusion Sputum culture grows E coli (7) Abnormal CT scan, chest: Code(s): R93.89 - Abnormal findings on diagnostic imaging of other specified body structures Status: Acute Assessment and Plan: 1. Small right and large left pleural effusions. Monitor 2. Acute fractures of left second-sixth ribs. Pain control 3. 3.8 x 1.7 cm anterior mediastinal mass, increased from 1.9 x 1.6 cm on 10/03/21. This finding may be a combination of hematoma and a pre-existing mass such as thymoma or lymphoma. Follow-up with PCP as outpatient (8) Ischemia of left upper extremity: Code(s): I99.8 - Other disorder of circulatory system Status: Acute Assessment and Plan: Evaluated by lace weaver on 10/17/2021 top blood negative for ischemia Eliquis is on hold (9) Persistent atrial fibrillation: Code(s): I48.19 - Other persistent atrial fibrillation Status: Acute Assessment and Plan: Cardiology recommendation appreciated Complicated with bradycardia Eliquis on hold for tunneled catheter which was placed yesterday also plan for PEG tube continue to hold Eliquis management of Eliquis by lace weaver Subjective Date/time seen: 10/23/21 10:27 Interval history: Narrative: Mr. Gomez is a 65-year-old gentleman who presented to emergency room after tripping over the last step of his stairs and fell and struck his knees and his head. Patient states he only reason he came to the emergency room was secondary to the fact that he is on Eliqu
--- NOTE | 2021-10-23 10:53 | WPDANESPN ---
Anes - Prog Note Post-Op Date/Time: 10/23/21 10:53 Cardiovascular status: normal Respiratory status: other (trach and ventilated) Airway patency: baseline (remains on vent via trach) and other Mental status: baseline Post-Op hydration status: normal Vital Signs: Last Vital Signs Temp 36.9 C 10/23/21 08:00 Pulse 58 L 10/23/21 10:00 Resp 21 H 10/23/21 10:00 BP 105/63 10/23/21 10:00 Pulse Ox 97 10/23/21 10:00 Pain Score (VAS): 0/10 I/O: Intake & Output 10/22/21 10/23/21 10/23/21 23:59 07:59 15:59 Intake Total 140 592 100 Output Total 0 Balance 140 592 100 Laboratory Tests 10/23/21 03:43 10/23/21 03:43 10/22/21 10/22/21 10/22/21 12:50 17:11 20:33 WBC RBC Hgb Hct MCV MCH MCHC RDW Plt Count MPV Immature Gran % (Auto) Neut % (Auto) Lymph % (Auto) Craven % (Auto) Eos % (Auto) Baso % (Auto) Lymph # (Auto) Craven # (Auto) Eos # (Auto) Baso # (Auto) Abs Immat Gran (auto) Absolute Neuts (auto) Absolute Nucleated RBC Nucleated RBC % Puncture Site ABG pH ABG pCO2 ABG pO2 ABG PO2/FiO2 Ratio ABG HCO3 ABG O2 Saturation ABG O2 Content ABG Base Excess A-a Gradient Oxyhemoglobin Carboxyhemoglobin Methemoglobin Reduced Hemoglobin Total Hemoglobin O2 Delivery Device O2 Liters/Min Minute Volume Vent Rate Vent Mode FiO2 Tidal Volume PEEP Peak Inspir Pressure Pressure Support Sodium Potassium Chloride Carbon Dioxide Anion Gap BUN Creatinine Estim Creat Clear Calc Estimated GFR Glucose POC Capillary Glucose 112 H 122 H 109 H Calcium Phosphorus Magnesium Total Bilirubin AST ALT Alkaline Phosphatase Total Protein Albumin 10/22/21 10/22/21 10/23/21 20:36 23:27 03:43 WBC RBC Hgb Hct MCV MCH MCHC RDW Plt Count MPV Immature Gran % (Auto) Neut % (Auto) Lymph % (Auto) Craven % (Auto) Eos % (Auto) Baso % (Auto) Lymph # (Auto) Craven # (Auto) Eos # (Auto) Baso # (Auto) Abs Immat Gran (auto) Absolute Neuts (auto) Absolute Nucleated RBC Nucleated RBC % Puncture Site ABG pH ABG pCO2 ABG pO2 ABG PO2/FiO2 Ratio ABG HCO3 ABG O2 Saturation ABG O2 Content ABG Base Excess A-a Gradient Oxyhemoglobin Carboxyhemoglobin Methemoglobin Reduced Hemoglobin Total Hemoglobin O2 Delivery Device O2 Liters/Min Minute Volume Vent Rate Vent Mode FiO2 Tidal Volume PEEP Peak Inspir Pressure Pressure Support Sodium 131 L Potassium 4.7 Chloride 91 L Carbon Dioxide 21 L Anion Gap 19 H BUN 136 H D Creatinine 8.70 H Estim Creat Clear Calc 10 Estimated GFR 6 L Glucose 158 H POC Capillary Glucose 109 H 138 H Calcium 8.7 Phosphorus 8.8 H Magnesium 2.8 H Total Bilirubin 1.0 AST 35 ALT 11 Alkaline Phosphatase 209 H Total Protein 6.0 L Albumin 3.4 L 10/23/21 10/23/21 10/23/21 03:43 04:33 08:04 WBC 20.5 H RBC 3.35 L Hgb 10.5 L Hct 31.2 L MCV 93.1 MCH 31.3 MCHC 33.7 RDW 18.3 H Plt Count 419 H MPV 12.0 H Immature Gran % (Auto) 2.5 H Neut % (Auto) 85.4 H Lymph % (Auto) 5.5 L Craven % (Auto) 6.0 Eos % (Auto) 0.3 Baso % (Auto) 0.3 Lymph # (Auto) 1.12 Craven # (Auto) 1.2 H Eos # (Auto) 0.1 Baso # (Auto) 0.1 Abs Immat Gran (auto) 0.52 H Absolute Neuts (auto) 17.5 H Absolute Nucleated RBC 0.2 H Nucleated RBC % 0.8 H Puncture Site Left radial ABG pH 7.444 ABG pCO2 32.0 L ABG pO2 86.1 ABG PO2/FiO2 Ratio 2.46 ABG HCO3 21.4 L ABG O2 Saturation 97.0 ABG O2 Content 16.7 ABG Base Excess -1.8 A-a Gradient 126.3 Oxyhemoglobin 95.6 Carboxyhemoglobin 0.3 Me
--- NOTE | 2021-10-23 11:22 | WPDGIPROGNO ---
Progress Note: A&P Assessment and Plan (1) Respiratory failure: Code(s): J96.90 - Respiratory failure, unspecified, unspecified whether with hypoxia or hypercapnia Status: Acute Assessment and Plan: Patient remains on ventilator. Tracheostomy performed. I have been asked to see for possible PEG tube. (2) Ventilator dependence: Code(s): Z99.11 - Dependence on respirator [ventilator] status Status: Acute (3) Mediastinal mass: Code(s): J98.59 - Other diseases of mediastinum, not elsewhere classified Status: Acute (4) End-stage renal disease on peritoneal dialysis: Code(s): N18.6 - End stage renal disease; Z99.2 - Dependence on renal dialysis Status: Acute Assessment and Plan: Patient to start hemodialysis. Peritoneal dialysis would preclude PEG tube placement. There is too high a risk for infectious peritonitis. He either bacterial or fungal is at risk because of peritoneal dialysis. Agree with starting hemodialysis. Consider PEG tube perhaps on Wednesday or Wednesday PD catheter should be removed prior to this. We would need to give him prophylactic antibiotics before PEG tube in perhaps continue them for a while for both antifungal and antibacterial prophylaxis. Long discussion with Dr. Combs, Nephrology today regarding discontinuing peritoneal dialysis and probably not restarting it for at least 2 months because of risk of infection. (5) Persistent atrial fibrillation: Code(s): I48.19 - Other persistent atrial fibrillation Status: Acute (6) Chronic anticoagulation: Code(s): Z79.01 - lard maker (current) use of anticoagulants Status: Acute Assessment and Plan: Anticoagulation will be need to be held in anticipation of PEG tube placement. Anticipate PEG tube placement Wednesday or Wednesday if hemodialysis started and peritoneal dialysis held for at least 3 days prior to PEG tube placement. Subjective Date/time seen: 10/23/21 11:22 Patient remains on the ventilator. Tracheostomy in place. Currently receiving NG tube feedings. Hemodialysis to start today. Peritoneal dialysis catheter remains in place. Review of Systems Review of Systems: ROS unobtainable: Yes unobtainable due to endotracheal tube Exam Narrative: Physical exam patient is on vent. Tracheostomy in place. Lungs are clear. Heart without murmur. Abdomen. Bowel sounds are present soft nontender PD catheter remains in place today. Extremities without clubbing cyanosis or edema. Objective Data Vital Signs Vital Signs: Vital Signs - 24 hr 04/20/22 12:00 10/22/21 15:22 10/22/21 16:00 Temperature 98.7 F Pulse Rate 61 65 59 L Respiratory Rate 27 H 20 17 Blood Pressure 120/50 L 115/70 105/56 L Pulse Oximetry 98 98 97 10/22/21 16:49 10/22/21 18:00 10/22/21 20:00 Temperature 98.4 F Pulse Rate 80 62 60 Respiratory Rate 27 H 18 Blood Pressure 110/69 96/56 L Pulse Oximetry 98 64 L 99 10/22/21 20:18 10/22/21 20:22 10/22/21 20:32 Temperature Pulse Rate 58 L 60 55 L Respiratory Rate 13 21 H Blood Pressure Pulse Oximetry 100 10/22/21 22:00 10/22/21 23:00 10/22/21 23:25 Temperature Pulse Rate 61 54 L Respiratory Rate 17 Blood Pressure 90/68 L 101/62 Pulse Oximetry 98 99 10/23/21 00:00 10/23/21 01:26 10/23/21 01:28 Temperature 98.3 F Pulse Rate 57 L 60 57 L Respiratory Rate 21 H 25 H Blood Pressure 95/64 L Pulse Oximetry 98 97 10/23/21 01:34 10/23/21 02:00 10/23/21 04:00 Temperature 98.9 F Pulse Rate 60 60 58 L Respiratory Rate 17 12 16 Blood Pressure 98/57 L 92/66 L Pulse Oximetry 97 96 10/23/21 04:10 10/23/21 06:00 10/23/21 08:00 Temperature 98.4 F Pulse Rate 60 63 58 L Respiratory Rate 24 H 19 Blood Pressure 108/61 112/64 Pulse Oximetry 96 99 95 10/23/21 08:36 10/23/21 08:40 10/23/21 08:45 Temperature Pulse Rate 58 L 62 60 Respiratory Rate 16 16 Blood Pressure Pulse Oxim
--- NOTE | 2021-10-23 11:33 | PCFNICU ---
ICU Rounding Note: Pt current nutrition is Nepro at 60 ml/hr over 22 hours. Last recorded weight is 118 kg, down from 122.5 kg patient on dialysis. Bowel Motility:+Bm reported 10/22 Labs Reviewed:Glu 136,Alb 3.4,BUN 131, Cr 8.7,GFR 6 Meds Noted:Phoslo, Atrovent, Midodrine,Protonix, Crestor, Retacrit, Zyloprim, Reglan Skin:left lower leg-venous status, right foot-DM ulcer Additional Notes: Patient is current with Trach ASV mode. Tunneled Cath placed yesterday 10/22. Plans for Hemodialysis this afternoon. Nursing is reporting 300 residuals, tube feeding on hold at this time. Reglan added. GI consult for PEG placement. Recommend to continue Nepro at 60 ml/hr over 22 hours. Free water flush 30 ml q 4 hours. Agree with diet orders. Following daily in ICU rounds. Will be reassessing every Wednesday and Wednesday.
[2021-10-23] MEDS: ALBUMIN HUMAN 25% 25 GM/100 ML 100 ML IVPB ×2 (11:47→18:05)
[2021-10-23] MEDS: METOCLOPRAMIDE HCL INJ 10 MG/2 ML VIAL 5 MG IV PUSH (11:51)
[2021-10-23 12:07] LABS: Glucose Point of Care 189 mg/dl (65-105)
--- NOTE | 2021-10-23 13:06 | PM.PNCARD ---
Progress Note: A&P Additional Plan 65-year-old man with: Chronic atrial fibrillation with slow ventricular response and respiratory arrest resulting in PA arrest 1st part of this month. Since then he has been in the ICU on ventilator support and otherwise stable in that respect. Unfortunately it appears that he will be a chronic ventilator patient or least a long-term ventilator patient and plans are in place for establishing a PEG tube and then transfer to long-term ventilator facility. Barrington Lock MD [facility] Subjective Date/time seen: Date of service: 10/23/21 13:06 Interval history: 65-year-old man seen in follow-up h/o ischemic cardiomyopathy, chronic atrial fibrillation LV systolic dysfunction and [id number]-pd-[id number] aortic valve stenosis. Patient admitted here with sepsis had a PEA arrest after which she has been placed in the ICU. Patient is still on ventilator support via Trach. No longer sedated. Date of service 10/13/21: No acute events overnight. He remains on vasopressor support but is off dopamine at this point. Date of service 10/14/2021: No significant changes from a cardiac perspective. HR and BP remain stable off dopamine. Date of service 10/15/2021: Arousable. Rhythm stable. Blood pressure okay. Date of service 10/16/2021: Still on pressor support. Heart rate rhythm stable. Plan for trach and PEG tomorrow Date of service 10/17/2021: Left hand is cool. He is responsive and will answer some questions on the ventilator a shaking his head yes and no. Denies any pain Date of service 10/18/2021: Status post trach yesterday. Peg was not performed due to peritoneal dialysis need. He is responsive but agitated. No pain. Date of service 10/19/2021: Still off Levophed. Withdrawal so pain. Trach Date of service 10/20/2021: Remains off pressors but receiving midodrine per tube. Ventilatory support via trach. Patient awake alert, denies chest pain or shortness of breath. No new issues overnight. Plan for tunneled hemodialysis catheter placement today. Remains in atrial fibrillation heart rate controlled. He asked me by mouthing his words if today was Wednesday which I confirmed. Date of service 10/21/2021: Unable to obtain tunneled hemodialysis catheter yesterday. Schedule for this afternoon. No new issues overnight. Remains in atrial fibrillation heart rate stable. BP unchanged. Patient is sleeping arousable denied pain. Nods and mouths answers in response to questions. Date of service 10/21/2021: Clinically unchanged. Continues in slow atrial fibrillation but hemodynamically stable with is. Received a hemodialysis catheter and PEG tube is to be placed next. After this plans are for transfer to a long-term ventilator management facility Exam Narrative: Trach Const: General: comfortable, no acute distress, alert and awake Nutritional Appearance: obese Orientation/consciousness: No patient oriented x3 HENMT: Head: normal to inspection Eyes: General: appearance normal, both eyes and all related structures Pupils: Equal, round and reactive pupils present Neck: Neck: normal visual inspection Resp: Effort & Inspection: other (mehanically ventilated ) Auscultation: not clear to auscultation bilaterally and rhonchi Cardio: Rate: regular rate Rhythm: abnormal rhythm Heart sounds: S1 normal heart sound present, S2 normal heart sound present and Murmur heart sound present systolic Other: Left hand is improved from yesterday. GI: Auscultation: normal bowel sounds Skin: General skin exam: normal color and rashes and/or lesions noted Wounds: wounds noted (bilateral feet ) Neuro: General: No patient oriented x3 Cranial nerves: Yes Equal, round and reactive pupils present Psych: Appearance: grossly abnormal Objective Data Vital Signs Vital Signs: Vital Signs - 24 hr 10/22/21 15:22 10/22/21 16:00 10/22/21 16:49 Temperature 37.1 C Pulse Rate 65 59 L 80 Respiratory Rate 20 17
--- NOTE | 2021-10-23 13:25 | WPDINTPN ---
Progress Note: A&P Assessment and Plan (1) Acute respiratory failure with hypoxia: Code(s): J96.01 - Acute respiratory failure with hypoxia Status: Acute Assessment and Plan: Acute Respiratory failure secondary to cardiac arrest, pneumonia, pulmonary edema, left pleural effusion. Intubated on 10/04/2021 during code blue - Continue full mechanical ventilation support to prevent hypoxemia/hypercarbia and end organ damage. -most recent PCXR reviewed -patient has been on ASV mode with 35% FiO2 and 8 of PEEP. -off all sedation since 10/09 -10/07/2021: Sputum culture growing E coli, sensitive to cefepime, Zosyn, imipenem and gentamicin. - 10/11 -repeat Sputum culture still growing E coli ESBL which is sensitive to imipenem --10/14 DC Vanc, changed Zosyn to imipenem -patient tolerated only few hours of PSV 16/02 yesterday. Will try again today -tracheostomy done on 10/17/2021 10/09/2021: CT chest, abdomen, pelvis without contrast 1. Small right and moderate left pleural effusions with collapse of the bilateral lower lobes with additional dependent compressive atelectasis. 2. Cardiomegaly. 3. Nonspecific 2.2 x 1.4 cm anterior mediastinal mass with differential including enlarged lymph node or thymoma. 4. Small volume of ascites with peritoneal dialysis catheter. (2) End-stage renal disease on peritoneal dialysis: Code(s): N18.6 - End stage renal disease; Z99.2 - Dependence on renal dialysis Status: Acute Assessment and Plan: patient is being followed by Nephrology and is currently peritoneal dialysis. -discussed with nephrology. Patient will need a PEG tube, Dr. Combs plans to transition him to hemodialysis. - surgery has been consulted for tunneled dialysis catheter placement, unable to access left subclavian on 10/20. -10/22/2021: Right-sided tunneled IJ dialysis catheter placed by surgery - conventional hemodialysis today per Nephrology (3) Cardiac arrest: Code(s): I46.9 - Cardiac arrest, cause unspecified Status: Acute Assessment and Plan: Its possible patient's cardiac arrest secondary to junctional bradycardia or slow AFib Troponins, although mildly elevated in presence of end-stage renal disease, remained flat EKG showed AFib/ junctional bradycardia with heart rate in 40s -off dopamine 10/12 - off Levophed 10/18 - he may need transvenous pacemaker and I have discussed with Cardiology - cardiology is following - continue Eliquis -repeat head CT on 10/09: No acute intracranial findings or interval change, mild atrophy and microangiopathy. -patient opens his eyes to name and follows simple commands in all extremities 10/06/2021 Echo: - mild LVH; moderate-severe LV systolic dysfunction, ejection fraction about 30-35% - Moderate-severe aortic stenosis - Moderate pulmonary hypertension, RVSP 54 mmHg (4) Persistent atrial fibrillation: Code(s): I48.19 - Other persistent atrial fibrillation Status: Acute Assessment and Plan: currently in junctional bradycardia/sinus Jacinto- see above Eliquis was resumed after tracheostomy but now on hold for tunnel dialysis catheter placement (5) Bradycardia: Code(s): R00.1 - Bradycardia, unspecified Status: Chronic Assessment and Plan: see above (6) Pneumonia: Code(s): J18.9 - Pneumonia, unspecified organism Status: Acute Assessment and Plan: patient on the floor was being treated for community-acquired pneumonia antibiotics were broadened after intubation as possible patient may have aspirated 10/03/2021 Blood cultures: Negative Procalcitonin level 6.4 10/08: leukocystosis persists -10/07/2021: Sputum culture -growing E coli, sensitive to cefepime, Zosyn, imipenem and gentamicin - 10/11 -repeat culture still growing E coli ESBL sensitive to imipenem -10/14 DC vanc, changed Zosyn to imipenem - increase in WBC likely secondary to steroids as patient continues to be afebrile an
[2021-10-23 18:44] LABS: Glucose Point of Care 218 mg/dl (65-105)
[2021-10-23] MEDS: ROSUVASTATIN 10 MG TABLET PO (20:16)
[2021-10-23 20:20] LABS: Glucose Point of Care 245 mg/dl (65-105)
[2021-10-24] VITALS (31 sets, daily range): BP systolic 117–137; BP diastolic 55–79; PULSE 47–58; RESP 16–26; TEMP 36.2–37; O2SAT 91–98
[2021-10-24] MEDS: INSULIN ASPART (*BKC) 100 UNITS/ML SUB-Q ×3 (00:06→14:19)
[2021-10-24] MEDS: ALBUMIN HUMAN 25% 25 GM/100 ML 100 ML IVPB ×2 (00:06→06:12)
[2021-10-24 00:08] LABS: Glucose Point of Care 225 mg/dl (65-105)
[2021-10-24] MEDS: ALBUTEROL SULFATE NEB 2.5 MG/0.5 ML INH INHALATION ×4 (02:30→20:04)
[2021-10-24] MEDS: IPRATROPIUM BR 0.02% INH SOLN 0.5 MG/2.5 ML VIAL INHALATION ×4 (02:30→20:04)
[2021-10-24 05:00] LABS: Alveolar/Arterial O2 Gradient 127.3 mmHg; Base Excess ABG -1.8 mEq/l (+/-2.0); Carboxyhemoglobin 0.3 % THb (0-2.0); Fractional Inspired Oxygen 35 %; HCO3 ABG 22.2 mEq/l (22.0-26.0); Methemoglobin ABG 0.2 %THb (0-1.5); Oxygen Content ABG 14.1 %vol (16.0-22.0); Oxygen Saturation ABG 96.3 % (95.0-100.0); Oxyhemoglobin 94.6 % THb (90.0-100.0); PCO2 ABG 34.9 mmHg (35.0-45.0); PO2 ABG 81.7 mmHg (80.0-100.0); PO2 FiO2 Ratio Arterial Blood 2.33 %; Reduced Hemoglobin 4.9 %THb (0-5.0); Total Hemoglobin 10.5 g/dL (12.0-18.0); pH ABG 7.422 (7.350-7.450)
[2021-10-24 05:01] LABS: Site Drawn RIGHT RADIAL
[2021-10-24 05:02] LABS: Arterial Blood Gas PEEP 8 cmH2O; Arterial Blood Gas Vent Mode ASV; Device VENTILATOR; Modified Allen's Test Pass
[2021-10-24 05:05] LABS: Basophils Percent Auto 0.2 % (0.2-1.2); Eosinophils Percent Auto 0.1 % (0-4.4); Hemoglobin 9.5 g/dL (14.0-18.0); Immature Granulocyte Absolute 0.34 K/mm3 (0.00-0.031); Immature Granulocyte Percent A 1.9 % (0-0.5); Lymphocytes Percent Auto 4.5 % (18.3-44.2); Mean Corpuscular HGB Conc 32.8 g/dl (32-36); Mean Corpuscular Hemoglobin 31.1 pg (26-34); Mean Corpuscular Volume 95.1 fl (80-100); Mean Platelet Volume 11.9 fl (7.4-10.4); Monocytes Absolute Auto 1.1 K/mm3 (0.1-0.6); Monocytes Percent Auto 5.9 % (2.6-8.5); Neutrophils Absolute Auto 15.7 K/mm3 (1.3-6.7); Neutrophils Percent Auto 87.4 % (45.5-73.1); Nucleated Red Blood Cells Absolute Auto 0.1 K/mm3 (0.0-0.012); Nucleated Red Blood Cells Perc 0.5 % (0.0-0.2); Platelet Count Result 361 k/mm3 (150-375); Red Blood Count 3.05 M/mm3 (4.6-6.20); Red Cell Distribution Width 18.6 % (11.5-14.5); White Blood Count 17.9 K/mm3 (4.5-10.0)
[2021-10-24 05:16] LABS: INR 1.5; Prothrombin Time 17.2 Seconds (11.1-14.7)
[2021-10-24 05:23] LABS: Alanine Aminotransferase 8 U/L (4-50); Albumin Level 3.7 g/dL (3.5-5.1); Alkaline Phosphatase 135 U/L (38-126); Anion Gap 20 mmol/L (8-16); Aspartate Amino Transferase 28 U/L (17-59); Bilirubin,Total 1.3 mg/dL (0.2-1.3); Calcium 8.4 mg/dL (8.4-10.2); Carbon Dioxide 22 mmol/L (22-30); Chloride 90 mmol/L (98-107); Estimated CRCL calculation 11 ml/min; Estimated Glomerular Filt Rate 7; Glucose 196 mg/dL (65-110); Magnesium 2.7 mg/dL (1.6-2.3); Phosphorus 8.5 mg/dL (2.5-4.5); Sodium 132 mmol/L (137-145)
[2021-10-24 05:30] LABS: Blood Urea Nitrogen 142 mg/dL (9-20)
[2021-10-24] MEDS: HYDROCORTISONE SODIUM SUCCINATE 100 MG/2 ML VIAL 50 MG IV PUSH (06:08)
[2021-10-24] MEDS: MIDODRINE HCL 10 MG TABLET FEED TUBE ×3 (06:08→20:37)
[2021-10-24 08:02] LABS: Glucose Point of Care 214 mg/dl (65-105)
[2021-10-24] MEDS: DORNASE ALFA INH SOLN 1 MG/ML 2.5 ML AMP 2.5 MG INHALATION ×2 (08:10→20:04)
[2021-10-24] MEDS: CALCIUM ACETATE 667 MG TABLET 1334 MG FEED TUBE ×2 (08:11→14:09)
[2021-10-24] MEDS: BRIMONIDINE TARTRATE 0.2% OP SOLN 5 ML BTL 1 DROP EACH EYE ×2 (08:12→20:37)
[2021-10-24] MEDS: MINERAL OIL/WHITE PETROLATUM OINTMENT 1 APPLIC EACH EYE ×2 (08:12→20:38)
[2021-10-24] MEDS: PANTOPRAZOLE SODIUM IV 40 MG VIAL IV PUSH (08:12)
[2021-10-24] MEDS: DORZOLAMIDE/TIMOLOL OPHTH SOL 10 ML BOTTLE 1 DROP EACH EYE ×2 (08:12→20:37)
[2021-10-24] MEDS: allopurinoL 100 MG TABLET PO (08:13)
[2021-10-24] MEDS: polyethylene glycoL 3350 17 GM POWD.PACK PO (08:14)
[2021-10-24] MEDS: MUPIROCIN 2% OINT 22 GM TUBE 1 APPLIC TOPICAL (08:15)
[2021-10-24] MEDS: SOD HYPOCHLORITE 1/4 STRENGTH 473 ML 1 APPLIC TOPICAL (08:15)
[2021-10-24] MEDS: SILVER SULFADIAZINE 1% CR 50 GM JAR (*BKC) 1 APPLIC TOPICAL (08:15)
[2021-10-24] MEDS: INSULIN GLARGINE (*BKC) 100 UNITS/ML 45 UNITS SUB-Q ×2 (08:21→20:43)
--- NOTE | 2021-10-24 10:50 | PM.CNGS ---
Assessment and Plan Assessment and plan (1) End-stage renal disease on peritoneal dialysis: Onset Date: Unknown Code(s): N18.6 - End stage renal disease; Z99.2 - Dependence on renal dialysis Status: Acute Assessment and Plan: Because of the need for a PEG tube been asked to remove his peritoneal dialysis catheter. This is because of the increased risk of peritonitis if not removed. No signs of current infection of the peritoneal dialysis catheter on my assessment. The patient is converting to hemodialysis and requiring a PEG tube placement. Therefore, there was concern regarding possible future peritonitis if this is not removed. Currently were holding off removing it because there have been some issues with flow through his new temporary tunneled dialysis catheter. Hemodialysis nurses will put Cathflo in that yesterday after they tried it for the 1st time and will be trying it again. I reviewed the chest x-ray and does not appear to be kinked or have other problems with it. Hopefully it will function well and we will wait over the weekend to see how it works since the patient will need some type of dialysis and he can still have the peritoneal dialysis for now if needed. Patient is tolerating his tube feedings through his NG tube. For now will reschedule patient for removal of his peritoneal dialysis catheter for Wednesday10/27/2021 and if his hemodialysis catheter is working well will plan to proceed at that time. His tube feedings would need to be stopped at midnight on Wednesday night if we are to proceed. (2) Respiratory failure: Code(s): J96.90 - Respiratory failure, unspecified, unspecified whether with hypoxia or hypercapnia Status: Acute (3) Ventilator dependence: Onset Date: ~10/2021 Code(s): Z99.11 - Dependence on respirator [ventilator] status Status: Acute Assessment and Plan: Now has tracheostomy in place (4) Cardiac arrest: Code(s): I46.9 - Cardiac arrest, cause unspecified Status: Acute (5) Obesity (BMI 30.0-34.9): Code(s): E66.9 - Obesity, unspecified Status: Acute (6) Anemia: Qualifiers: Anemia type: unspecified type Qualified Code(s): D64.9 - Anemia, unspecified Code(s): D64.9 - Anemia, unspecified Status: Acute (7) Atrial fibrillation: Qualifiers: Atrial fibrillation type: unspecified chronic Qualified Code(s): I48.20 - Chronic atrial fibrillation, unspecified Code(s): I48.91 - Unspecified atrial fibrillation Status: Acute History of Present Illness Consult details Consult date: 10/24/21 Requesting physician: Suraj Combs MD Narrative: 10/24/2021: I was asked this date to see the patient regarding possible removal of his peritoneal dialysis catheter. There is currently no infection or problem with this. However, the patient is converting to hemodialysis and requiring a PEG tube placement. Therefore, there was concern regarding possible future peritonitis if this is not removed. Currently were holding off removing it because there have been some issues with flow through his new temporary tunneled dialysis catheter. Hemodialysis nurses will put Cathflo in that yesterday after they tried it for the 1st time and will be trying it again. I reviewed the chest x-ray and does not appear to be kinked or have other problems with it. Hopefully it will function well and we will wait over the weekend to see how it works since the patient will need some type of dialysis and he can still have the peritoneal dialysis for now if needed. Patient is tolerating his tube feedings through his NG tube. 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
[2021-10-24 11:58] LABS: Glucose Point of Care 219 mg/dl (65-105)
--- NOTE | 2021-10-24 12:10 | PCNFU ---
Nutrition Follow-Up Complete: Inadequate Oral Intake as related to mechanical ventilation as evidenced by NPO. goal: Meet estimated nutritional needs Patient is progressing towards goal. We will continue current goal. Pt current nutrition is Nepro at 60 ml/hr over 22 hours. Last recorded weight is 121.1 kg, down from 122.5 kg on admit. Bowel Motility:+Bm reported 10/22 Labs Reviewed:Glu 196, Cr 8.10,BUN 142, GFR 7, Na 132, Hct 29.0,Hgb 95 Meds Noted:PhosLo, Atrovent, Midodrine,Protonix, Crestor, Retacrit, Zyloprim, Miralax, NovoLog, Lantus Skin: left lower leg-venous status, right foot-DM ulcer Additional Notes: Patient current with Trach ASV mode. Plans for Hemodialysis today. Tube feeding continue with Nepro at 60 ml/hr over 22 hours, providing 2376 kcals/107 gms protein/960 ml water. Meeting 100% of caloric needs/100% of protein needs. Free water flush 30 ml q 4 hours. Plans for PEG next week. Agree with diet orders. Will monitor in ICU rounds and reassessing every Wednesday and Wednesday.
--- NOTE | 2021-10-24 12:54 | WPDINTPN ---
Progress Note: A&P Assessment and Plan (1) Acute respiratory failure with hypoxia: Code(s): J96.01 - Acute respiratory failure with hypoxia Status: Acute Assessment and Plan: Acute Respiratory failure secondary to cardiac arrest, pneumonia, pulmonary edema, left pleural effusion. Intubated on 10/04/2021 during code blue - Continue full mechanical ventilation support to prevent hypoxemia/hypercarbia and end organ damage. -most recent PCXR reviewed -patient has been on ASV mode with 35% FiO2 and 8 of PEEP. -off all sedation since 10/09 -10/07/2021: Sputum culture growing E coli, sensitive to cefepime, Zosyn, imipenem and gentamicin. - 10/11 -repeat Sputum culture still growing E coli ESBL which is sensitive to imipenem --10/14 started on imipenem, continue for total of 14 days -patient has tolerated ASV mode of ventilation, when placed on pressure support 04/08 patient became tachypneic, and was in respiratory distress, placed him back on ASV mode -tracheostomy done on 10/17/2021 10/09/2021: CT chest, abdomen, pelvis without contrast 1. Small right and moderate left pleural effusions with collapse of the bilateral lower lobes with additional dependent compressive atelectasis. 2. Cardiomegaly. 3. Nonspecific 2.2 x 1.4 cm anterior mediastinal mass with differential including enlarged lymph node or thymoma. 4. Small volume of ascites with peritoneal dialysis catheter. (2) End-stage renal disease on peritoneal dialysis: Onset Date: Unknown Code(s): N18.6 - End stage renal disease; Z99.2 - Dependence on renal dialysis Status: Acute Assessment and Plan: patient is being followed by Nephrology and is currently peritoneal dialysis. -discussed with nephrology. Patient will need a PEG tube, Dr. Combs plans to transition him to hemodialysis. - surgery has been consulted for tunneled dialysis catheter placement, unable to access left subclavian on 10/20. -10/22/2021: Right-sided tunneled IJ dialysis catheter placed by surgery -hemodialysis this was started on 10/23/2021, they were able to remove 11 her mL of fluid, the catheter clotted and that they have put cath flow in it. Chest x-ray does not show any kinking of the catheter, discussed with Dr. Quintana the surgeon also and he feels that the line is functioning well -hemodialysis again to be done today on 10/24, if the line works well then Dr. Quintana the surgeon will remove the PD catheter on WednesdayOctober 27. (3) Cardiac arrest: Code(s): I46.9 - Cardiac arrest, cause unspecified Status: Acute Assessment and Plan: Its possible patient's cardiac arrest secondary to junctional bradycardia or slow AFib Troponins, although mildly elevated in presence of end-stage renal disease, remained flat EKG showed AFib/ junctional bradycardia with heart rate in 40s -off dopamine 10/12 - off Levophed 10/18 - he may need transvenous pacemaker and I have discussed with Cardiology - cardiology is following -repeat head CT on 10/09: No acute intracranial findings or interval change, mild atrophy and microangiopathy. -patient opens his eyes to name and follows simple commands in all extremities 10/06/2021 Echo: - mild LVH; moderate-severe LV systolic dysfunction, ejection fraction about 30-35% - Moderate-severe aortic stenosis - Moderate pulmonary hypertension, RVSP 54 mmHg (4) Persistent atrial fibrillation: Code(s): I48.19 - Other persistent atrial fibrillation Status: Acute Assessment and Plan: currently in junctional bradycardia/sinus Jacinto- see above -will resume Eliquis again today, as discussed with Dr. Bryan, surveying or spatial science technician, stated that there is a high risk of peritonitis if he places the PEG tube. He recommended checking with the LTAC that if they would take him on a Dobbhoff tube or NG tube for feeding. (5) Bradycardia: Code(s): R00.1 - Bradycardia, unspecified Status: Chronic Assessment a
--- NOTE | 2021-10-24 13:29 | WPDGIPROGNO ---
Progress Note: A&P Assessment and Plan (1) Respiratory failure: Code(s): J96.90 - Respiratory failure, unspecified, unspecified whether with hypoxia or hypercapnia Status: Acute (2) Mediastinal mass: Code(s): J98.59 - Other diseases of mediastinum, not elsewhere classified Status: Acute (3) Ventilator dependence: Onset Date: ~10/2021 Code(s): Z99.11 - Dependence on respirator [ventilator] status Status: Acute (4) End-stage renal disease on peritoneal dialysis: Onset Date: Unknown Code(s): N18.6 - End stage renal disease; Z99.2 - Dependence on renal dialysis Status: Acute (5) Chronic anticoagulation: Code(s): Z79.01 - terminal operator (current) use of anticoagulants Status: Acute Additional Plan I have had discussions with both Nephrology and day care director. There is a high rate of peritonitis if PEG tube is placed while patient receiving peritoneal dialysis. The risk is not totally diminish if we stop peritoneal dialysis. Peritoneal dialysis should not be given for several months after placement of PEG tube. Ideally it would be best to avoid a PEG tube. However if PEG tube required peritoneal dialysis catheter should be removed prophylactic antibiotics for both fungus and bacteria should be given at the time of PEG tube placement. At that time anticoagulation will need to be on held hold. And it should be least 3 days after peritoneal dialysis and tube removed before placement PEG tube. If long-term care institution is able to take patient with Dobbhoff tube feedings this would be best. At the present time peritoneal dialysis needs to be an option as hemodialysis is not yet totally functional. I will discussed with day care director. Will reassess the situation on Wednesday. Subjective Date/time seen: 10/24/21 13:29 Patient remains on ventilator via tracheostomy. Nutrition via NG tube present. Had tunnel dialysis catheter placed for hemodialysis but some issues remain not totally functional at this point. Review of Systems Review of Systems: ROS unobtainable: Yes unobtainable due to endotracheal tube Exam Narrative: Physical exam reveals Vital Signs be stable. Lungs with a few rhonchi. Heart without murmur. Abdomen is obese. peritoneal dialysis catheter remains in place. Objective Data Vital Signs Vital Signs: Vital Signs - 24 hr 10/23/21 14:00 10/23/21 15:01 10/23/21 15:08 Temperature Pulse Rate 54 L 55 L 54 L Respiratory Rate 18 24 H Blood Pressure 104/56 L Pulse Oximetry 95 98 10/23/21 15:16 10/23/21 16:00 10/23/21 16:28 Temperature 97.7 F Pulse Rate 54 L 53 L 51 L Respiratory Rate 24 H 15 Blood Pressure 113/69 101/65 Pulse Oximetry 95 10/23/21 16:30 10/23/21 16:45 10/23/21 17:12 Temperature Pulse Rate 48 L 55 L 54 L Respiratory Rate Blood Pressure 105/63 104/63 Pulse Oximetry 97 10/23/21 17:30 10/23/21 17:40 10/23/21 17:41 Temperature 97.5 F L Pulse Rate 53 L 51 L 51 L Respiratory Rate 16 Blood Pressure 101/58 L 113/61 113/61 Pulse Oximetry 10/23/21 18:00 10/23/21 20:00 10/23/21 20:35 Temperature 97.4 F L Pulse Rate 54 L 52 L 53 L Respiratory Rate 19 18 19 Blood Pressure 113/63 131/66 Pulse Oximetry 98 10/23/21 20:37 10/23/21 20:46 10/23/21 22:00 Temperature Pulse Rate 53 L 52 L 55 L Respiratory Rate 23 H 21 H Blood Pressure 121/77 Pulse Oximetry 98 97 10/23/21 23:08 10/24/21 00:00 10/24/21 02:00 Temperature 97.3 F L Pulse Rate 52 L 48 L 51 L Respiratory Rate 20 21 H Blood Pressure 117/59 L 135/72 Pulse Oximetry 98 98 98 10/24/21 02:30 10/24/21 02:35 10/24/21 04:00 Temperature 98 F Pulse Rate 51 L 54 L 57 L Respiratory Rate 19 19 Blood Pressure 128/66 Pulse Oximetry 94 94 10/24/21 04:23 10/24/21 06:00 10/24/21 08:00 Temperature 98.1 F Pulse Rate 54 L 55 L 53 L Respiratory Rate 20 16 Blood Pressure 123/71 124/70 Pulse Oximetry
--- NOTE | 2021-10-24 13:54 | PM.PNNEP ---
Progress Note: A&P Assessment and Plan (1) End-stage renal disease (ESRD): Code(s): N18.6 - End stage renal disease Status: Acute Assessment and Plan: HD treatment today since suboptimal treatment yesterday follow electrolytes and volume status (2) Acute respiratory failure with hypoxia: Code(s): J96.01 - Acute respiratory failure with hypoxia Status: Acute Assessment and Plan: continue ventilator support s/p tracheostomy complicated by pneumonia - on antibiotics will likely need LTACH for ongoing ventilator weaning (3) Hyponatremia: Code(s): E87.1 - Hypo-osmolality and hyponatremia Status: Acute Assessment and Plan: relatively stable at this time follow trend (4) Hypotension: Code(s): I95.9 - Hypotension, unspecified Status: Acute Assessment and Plan: off pressor support follow trend of hemodynamics (5) Anemia: Code(s): D64.9 - Anemia, unspecified Status: Chronic Assessment and Plan: due to ESRD and possibly acute illness on Epogen follow trend of H/H (6) Diabetes: Code(s): E11.9 - Type 2 diabetes mellitus without complications Status: Acute Assessment and Plan: follow accucheks on SSI and Lantus Will continue to follow. Subjective Date/time seen: 10/24/21 13:54 Chart reviewed since last seen - assuming care from Dr. Combs; s/p tunneled HD catheter placement with attempted treatment yesterday which was quite limited due to clotting; will re-attempt dialysis again today this afternoon; remains hemodynamically stable; no other issues/events overnight or earlier this AM. Exam Narrative: General: WD/WN male trached and on mechanical ventilation Heart: normal S1 and S2; no rub or gallop Lungs: coarse breath sounds bilaterally Abdomen: obese but soft, nontender, nondistended, positive bowel sounds; PD catheter in place Extremities: trace to 1+ chronic bilateral edema Skin: warm and dry Objective Data Vital Signs Vital Signs: Vital Signs Temp Pulse Resp BP Pulse Ox 10/24/21 12:00 52 L 24 H 129/72 97 10/24/21 11:01 53 L 97 10/24/21 10:00 54 L 20 118/68 97 10/24/21 08:35 47 L 18 10/24/21 08:13 49 L 97 10/24/21 08:10 49 L 19 10/24/21 08:00 36.7 C 53 L 16 124/70 98 10/24/21 06:00 55 L 20 123/71 96 10/24/21 04:23 54 L 95 10/24/21 04:00 36.6 C 57 L 19 128/66 94 10/24/21 02:35 54 L 94 10/24/21 02:30 51 L 19 10/24/21 02:00 51 L 21 H 135/72 98 10/24/21 00:00 36.3 C L 48 L 20 117/59 L 98 10/23/21 23:08 52 L 98 10/23/21 22:00 55 L 21 H 121/77 97 10/23/21 20:46 52 L 23 H 10/23/21 20:37 53 L 98 10/23/21 20:35 53 L 19 10/23/21 20:00 36.3 C L 52 L 18 131/66 98 10/23/21 18:00 54 L 19 113/63 10/23/21 17:41 51 L 113/61 10/23/21 17:40 36.4 C L 51 L 16 113/61 10/23/21 17:30 53 L 101/58 L 10/23/21 17:12 54 L 97 10/23/21 16:45 55 L 104/63 10/23/21 16:30 48 L 105/63 10/23/21 16:28 51 L 101/65 10/23/21 16:00 36.5 C 53 L 15 113/69 95 10/23/21 15:16 54 L 24 H 10/23/21 15:08 54 L 98 10/23/21 15:01 55 L 24 H Intake/Output Intake/Output: Intake & Output 10/21/21 10/22/21 10/23/21 10/24/21 23:59 23:59 23:59 23:59 Intake Total 7217 385 4794 876 Output Total -1884 5367 1117 Balance 3404 -4612 383 876 Meds/Results Medications: Active Medications Generic Name Dose Route Start Last Admin Trade Name Freq PRN Reason Stop Dose Admin Hydrocodone Bitart/Acetaminophen 1 tab 10/16/21 07:42 10/16/21 10:20 Hydrocodone/Acetaminophen (*Crx) 10-325 Mg Tablet PO 1 tab Q4H PRN Administration Pain Rated 4-6 Albuterol 2.5 mg 10/13/21 14:00 10/24/21 14:14 Albuterol Sulfate Neb 2.5 Mg/0.5 Ml Inh INHALATION 2.5 mg Q6HRT CHELSEY Administration Allopurinol 1
--- NOTE | 2021-10-24 18:45 | P.PNIM_ITS ---
Progress Note: A&P Assessment and Plan (1) Acute respiratory failure with hypoxia: Code(s): J96.01 - Acute respiratory failure with hypoxia Status: Acute Assessment and Plan: Acute Respiratory failure secondary to cardiac arrest, pneumonia, pulmonary edema, left pleural effusion. Intubated on 10/04/2021 during code blue - Continue full mechanical ventilation support to prevent hypoxemia/hypercarbia and end organ damage. -most recent PCXR reviewed -patient has been on ASV mode with 35% FiO2 and 8 of PEEP. -off all sedation since 10/09 -10/07/2021: Sputum culture growing E coli, sensitive to cefepime, Zosyn, imipenem and gentamicin. - 10/11 -repeat Sputum culture still growing E coli ESBL which is sensitive to imipenem --10/14 started on imipenem, continue for total of 14 days -patient has tolerated ASV mode of ventilation, when placed on pressure support 04/08 patient became tachypneic, and was in respiratory distress, placed him back on ASV mode -tracheostomy done on 10/17/2021 10/09/2021: CT chest, abdomen, pelvis without contrast 1. Small right and moderate left pleural effusions with collapse of the bilateral lower lobes with additional dependent compressive atelectasis. 2. Cardiomegaly. 3. Nonspecific 2.2 x 1.4 cm anterior mediastinal mass with differential including enlarged lymph node or thymoma. 4. Small volume of ascites with peritoneal dialysis catheter. (2) End-stage renal disease on peritoneal dialysis: Onset Date: Unknown Code(s): N18.6 - End stage renal disease; Z99.2 - Dependence on renal dialysis Status: Acute Assessment and Plan: patient is being followed by Nephrology and is currently peritoneal dialysis. -discussed with nephrology. Patient will need a PEG tube, Dr. Combs plans to transition him to hemodialysis. - surgery has been consulted for tunneled dialysis catheter placement, unable to access left subclavian on 10/20. -10/22/2021: Right-sided tunneled IJ dialysis catheter placed by surgery -hemodialysis this was started on 10/23/2021, they were able to remove 11 her mL of fluid, the catheter clotted and that they have put cath flow in it. Chest x- ray does not show any kinking of the catheter, discussed with Dr. Quintana the surgeon also and he feels that the line is functioning well -hemodialysis again to be done today on 10/24, if the line works well then Dr. Quintana the surgeon will remove the PD catheter on WednesdayOctober 27. (3) Cardiac arrest: Code(s): I46.9 - Cardiac arrest, cause unspecified Status: Acute Assessment and Plan: Its possible patient's cardiac arrest secondary to junctional bradycardia or slow AFib Troponins, although mildly elevated in presence of end-stage renal disease, remained flat EKG showed AFib/ junctional bradycardia with heart rate in 40s -off dopamine 10/12 - off Levophed 10/18 - he may need transvenous pacemaker and I have discussed with Cardiology - cardiology is following -repeat head CT on 10/09: No acute intracranial findings or interval change, mild atrophy and microangiopathy. -patient opens his eyes to name and follows simple commands in all extremities 10/06/2021 Echo: - mild LVH; moderate-severe LV systolic dysfunction, ejection fraction about 30- 35% - Moderate-severe aortic stenosis - Moderate pulmonary hypertension, RVSP 54 mmHg (4) Persistent atrial fibrillation: Code(s): I48.19 - Other persistent atrial fibrillation Status: Acute Assessment and Plan: currently in junctional bradycardia/sinus Jacinto- see above -will resume Eliquis again today, as discussed with Dr. Pizarro
[2021-10-24 18:46] LABS: Glucose Point of Care 150 mg/dl (65-105)
[2021-10-24] MEDS: ROSUVASTATIN 10 MG TABLET PO (20:37)
[2021-10-24] MEDS: APIXABAN 5 MG TABLET PO (20:38)
[2021-10-25] VITALS (31 sets, daily range): BP systolic 108–147; BP diastolic 62–80; PULSE 47–60; RESP 16–29; TEMP 36.4–36.9; O2SAT 90–98
[2021-10-25 00:28] LABS: Glucose Point of Care 128 mg/dl (65-105)
[2021-10-25] MEDS: IPRATROPIUM BR 0.02% INH SOLN 0.5 MG/2.5 ML VIAL INHALATION ×4 (01:40→20:00)
[2021-10-25] MEDS: ALBUTEROL SULFATE NEB 2.5 MG/0.5 ML INH INHALATION ×4 (01:40→20:00)
[2021-10-25 04:39] LABS: Basophils Percent Auto 0.2 % (0.2-1.2); Eosinophils Absolute Auto 0.4 K/mm3 (0-0.3); Eosinophils Percent Auto 2.1 % (0-4.4); Hematocrit 29.1 % (42.0-52.0); Hemoglobin 9.8 g/dL (14.0-18.0); Immature Granulocyte Absolute 0.27 K/mm3 (0.00-0.031); Immature Granulocyte Percent A 1.6 % (0-0.5); Lymphocytes Percent Auto 6.4 % (18.3-44.2); Mean Corpuscular HGB Conc 33.7 g/dl (32-36); Mean Corpuscular Hemoglobin 30.9 pg (26-34); Mean Corpuscular Volume 91.8 fl (80-100); Mean Platelet Volume 10.6 fl (7.4-10.4); Monocytes Absolute Auto 1.6 K/mm3 (0.1-0.6); Monocytes Percent Auto 9.3 % (2.6-8.5); Neutrophils Absolute Auto 13.9 K/mm3 (1.3-6.7); Neutrophils Percent Auto 80.4 % (45.5-73.1); Nucleated Red Blood Cells Absolute Auto 0.1 K/mm3 (0.0-0.012); Nucleated Red Blood Cells Perc 0.5 % (0.0-0.2); Platelet Count Result 329 k/mm3 (150-375); Red Blood Count 3.17 M/mm3 (4.6-6.20); Red Cell Distribution Width 18.4 % (11.5-14.5); White Blood Count 17.3 K/mm3 (4.5-10.0)
[2021-10-25 04:49] LABS: INR 1.6
[2021-10-25 05:03] LABS: Alanine Aminotransferase 8 U/L (4-50); Albumin Level 3.7 g/dL (3.5-5.1); Alkaline Phosphatase 151 U/L (38-126); Anion Gap 19 mmol/L (8-16); Aspartate Amino Transferase 23 U/L (17-59); Bilirubin,Total 1.2 mg/dL (0.2-1.3); Calcium 8.3 mg/dL (8.4-10.2); Carbon Dioxide 23 mmol/L (22-30); Chloride 91 mmol/L (98-107); Estimated CRCL calculation 10 ml/min; Estimated Glomerular Filt Rate 6; Glucose 126 mg/dL (65-110); Magnesium 2.8 mg/dL (1.6-2.3); Phosphorus 8.1 mg/dL (2.5-4.5); Potassium 4.8 mmol/L (3.4-5.0); Sodium 133 mmol/L (137-145)
[2021-10-25 05:10] LABS: Blood Urea Nitrogen 155 mg/dL (9-20)
[2021-10-25] MEDS: MIDODRINE HCL 10 MG TABLET FEED TUBE ×3 (06:38→21:06)
[2021-10-25] MEDS: DORNASE ALFA INH SOLN 1 MG/ML 2.5 ML AMP 2.5 MG INHALATION ×2 (08:10→20:00)
[2021-10-25] MEDS: INSULIN GLARGINE (*BKC) 100 UNITS/ML 45 UNITS SUB-Q ×2 (08:32→21:06)
[2021-10-25] MEDS: PANTOPRAZOLE SODIUM IV 40 MG VIAL IV PUSH (08:32)
[2021-10-25] MEDS: HYDROCORTISONE SODIUM SUCCINATE 100 MG/2 ML VIAL 50 MG IV PUSH (08:33)
[2021-10-25] MEDS: CALCIUM ACETATE 667 MG TABLET 1334 MG FEED TUBE ×3 (08:34→17:13)
[2021-10-25] MEDS: BRIMONIDINE TARTRATE 0.2% OP SOLN 5 ML BTL 1 DROP EACH EYE ×2 (08:34→21:06)
[2021-10-25] MEDS: DORZOLAMIDE/TIMOLOL OPHTH SOL 10 ML BOTTLE 1 DROP EACH EYE ×2 (08:34→21:05)
[2021-10-25] MEDS: APIXABAN 5 MG TABLET PO ×2 (08:35→21:05)
[2021-10-25] MEDS: allopurinoL 100 MG TABLET PO (08:35)
[2021-10-25] MEDS: SOD HYPOCHLORITE 1/4 STRENGTH 473 ML 1 APPLIC TOPICAL (09:35)
[2021-10-25] MEDS: MUPIROCIN 2% OINT 22 GM TUBE 1 APPLIC TOPICAL (09:56)
[2021-10-25] MEDS: SILVER SULFADIAZINE 1% CR 50 GM JAR (*BKC) 1 APPLIC TOPICAL (09:56)
--- NOTE | 2021-10-25 11:09 | WPDINTPN ---
Progress Note: A&P Assessment and Plan (1) Acute respiratory failure with hypoxia: Code(s): J96.01 - Acute respiratory failure with hypoxia Status: Acute Assessment and Plan: Acute Respiratory failure secondary to cardiac arrest, pneumonia, pulmonary edema, left pleural effusion. Intubated on 10/04/2021 during code blue -chest x-ray and ABGs reviewed -currently on ASV mode with 35% FiO2 and 8 of PEEP. -off all sedation since 10/09 -10/07/2021: Sputum culture growing E coli, sensitive to cefepime, Zosyn, imipenem and gentamicin. - 10/11 -repeat Sputum culture still growing E coli ESBL which is sensitive to imipenem --10/14 started on imipenem, continue for total of 14 days -patient not tolerating pressure support ventilation as he becomes tachypneic and diaphoretic -tracheostomy done on 10/17/2021 10/09/2021: CT chest, abdomen, pelvis without contrast 1. Small right and moderate left pleural effusions with collapse of the bilateral lower lobes with additional dependent compressive atelectasis. 2. Cardiomegaly. 3. Nonspecific 2.2 x 1.4 cm anterior mediastinal mass with differential including enlarged lymph node or thymoma. 4. Small volume of ascites with peritoneal dialysis catheter. (2) End-stage renal disease on peritoneal dialysis: Onset Date: Unknown Code(s): N18.6 - End stage renal disease; Z99.2 - Dependence on renal dialysis Status: Acute Assessment and Plan: patient is being followed by Nephrology and is currently peritoneal dialysis. -discussed with nephrology. Patient will need a PEG tube, Dr. Combs plans to transition him to hemodialysis. - surgery has been consulted for tunneled dialysis catheter placement, unable to access left subclavian on 10/20. -10/22/2021: Right-sided tunneled IJ dialysis catheter placed by surgery -hemodialysis this was started on 10/23/2021, they were able to remove 11 her mL of fluid, the catheter clotted and that they have put cath flow in it. -10/24/2021: Hemodialysis was unsuccessful, questionable kinking of the catheter -discuss with Nephrology, peritoneal dialysis to be done today, will try HD again on 10/26/2021, if the catheter does not work we will have surgery replace the catheter on Wednesday10/27/2021. (3) Cardiac arrest: Code(s): I46.9 - Cardiac arrest, cause unspecified Status: Acute Assessment and Plan: Its possible patient's cardiac arrest secondary to junctional bradycardia or slow AFib Troponins, although mildly elevated in presence of end-stage renal disease, remained flat. EKG on admission showed AFib/ junctional bradycardia with heart rate in 40s -off dopamine 10/12 - off Levophed 10/18 - he may need transvenous pacemaker and I have discussed with Cardiology - cardiology is following -repeat head CT on 10/09: No acute intracranial findings or interval change, mild atrophy and microangiopathy. -patient opens his eyes to name and follows simple commands in all extremities 10/06/2021 Echo: - mild LVH; moderate-severe LV systolic dysfunction, ejection fraction about 30-35% - Moderate-severe aortic stenosis - Moderate pulmonary hypertension, RVSP 54 mmHg (4) Persistent atrial fibrillation: Code(s): I48.19 - Other persistent atrial fibrillation Status: Acute Assessment and Plan: currently in junctional bradycardia/sinus Jacinto- see above - Eliquis resumed on 10/24/[address] Bryan, telegraph dispatcher, who stated stated that there is a high risk of peritonitis if he places the PEG tube. He recommended checking with the LTAC that if they would take him on a Dobbhoff tube or NG tube for feeding. (5) Bradycardia: Code(s): R00.1 - Bradycardia, unspecified Status: Chronic Assessment and Plan: see above (6) Pneumonia: Code(s): J18.9 - Pneumonia, unspecified organism Status: Acute Assessment and Plan: patient on the floor was being treat
[2021-10-25 12:25] LABS: Glucose Point of Care 149 mg/dl (65-105)
--- NOTE | 2021-10-25 13:31 | PM.PNNEP ---
Progress Note: A&P Assessment and Plan (1) End-stage renal disease (ESRD): Code(s): N18.6 - End stage renal disease Status: Acute Assessment and Plan: peritoneal dialysis treatment today since unable to perfom hemodialysis at this time follow electrolytes and volume status will re-attempt HD treatment tomorrow (2) Acute respiratory failure with hypoxia: Code(s): J96.01 - Acute respiratory failure with hypoxia Status: Acute Assessment and Plan: continue ventilator support s/p tracheostomy complicated by pneumonia - on antibiotics will likely need LTACH for ongoing ventilator weaning (3) Hyponatremia: Code(s): E87.1 - Hypo-osmolality and hyponatremia Status: Acute Assessment and Plan: relatively stable at this time follow trend (4) Hypotension: Code(s): I95.9 - Hypotension, unspecified Status: Acute Assessment and Plan: off pressor support follow trend of hemodynamics (5) Anemia: Code(s): D64.9 - Anemia, unspecified Status: Chronic Assessment and Plan: due to ESRD and possibly acute illness on Epogen follow trend of H/H (6) Diabetes: Code(s): E11.9 - Type 2 diabetes mellitus without complications Status: Acute Assessment and Plan: follow accucheks on SSI and Lantus Will continue to follow. Subjective Date/time seen: 10/25/21 13:31 Hemodialysis treatment unable to be done yesterday due to HD catheter malfunction; started on peritoneal dialysis treatment during the days given ongoing issues/problems with HD catheter; otherwise, remains hemodynamically stable and stable mentation (follows commands and nods head to simple yes/no questions). Exam Narrative: General: WD/WN male trached and on mechanical ventilation Heart: normal S1 and S2; no rub or gallop Lungs: coarse breath sounds bilaterally Abdomen: obese but soft, nontender, nondistended, positive bowel sounds; PD catheter in place Extremities: trace - 1+ chronic bilateral edema Skin: warm and intact Objective Data Vital Signs Vital Signs: Vital Signs - 24 hr 10/25/21 06:00 10/25/21 08:00 10/25/21 08:11 Temperature 36.8 C Pulse Rate 54 L 57 L 56 L Respiratory Rate 21 H 23 H 24 H Blood Pressure 123/71 132/62 Pulse Oximetry 93 92 10/25/21 08:24 10/25/21 08:26 10/25/21 08:29 Temperature Pulse Rate 58 L 55 L Respiratory Rate 19 Blood Pressure Pulse Oximetry 91 92 10/25/21 10:00 10/25/21 10:30 10/25/21 12:00 Temperature 36.9 C Pulse Rate 56 L 55 L 53 L Respiratory Rate 22 H 23 H Blood Pressure 129/73 122/67 Pulse Oximetry 94 90 97 Intake/Output Intake/Output: Intake & Output 10/22/21 10/23/21 10/24/21 10/25/21 23:59 23:59 23:59 23:59 Intake Total 755 1500 1788 630 Output Total 5386 1117 19 Balance -4612 383 1769 630 Meds/Results Medications: Active Medications Generic Name Dose Route Start Last Admin Trade Name Freq PRN Reason Stop Dose Admin Acetaminophen 650 mg 10/25/21 13:52 10/25/21 14:20 Acetaminophen Elixir 325 Mg/10.15 Ml Udc PO 650 mg Q6H PRN Administration Mild Pain (1-3) or Fever Hydrocodone Bitart/Acetaminophen 1 tab 10/16/21 07:42 10/16/21 10:20 Hydrocodone/Acetaminophen (*Crx) 10-325 Mg Tablet PO 1 tab Q4H PRN Administration Pain Rated 4-6 Albuterol 2.5 mg 10/13/21 14:00 10/25/21 14:30 Albuterol Sulfate Neb 2.5 Mg/0.5 Ml Inh INHALATION 2.5 mg Q6HRT CHELSEY Administration Allopurinol 100 mg 10/04/21 08:00 10/25/21 08:35 Allopurinol 100 Mg Tablet PO 100 mg DAILY@0800 CHELSEY Administration Alteplase, Recombinant 2 mg 10/23/21 17:09 Alteplase 2 Mg Vial (Cathflo) IV PUSH ONCE PRN Line Occlusion Apixaban 5 mg 10/24/21 12:49 10/25/21 08:35 Apixaban 5 Mg Tablet PO 5 mg Q12HR CHELSEY Administration Brimonidine Tartrate 1 drop 10/04/21 21:00 10/25/21 08:34 B
--- NOTE | 2021-10-25 13:31 | P.PNNP_ITS ---
Progress Note: A&P Assessment and Plan (1) End-stage renal disease (ESRD): Code(s): N18.6 - End stage renal disease Status: Acute Assessment and Plan: * peritoneal dialysis treatment today since unable to perfom hemodialysis at this time * follow electrolytes and volume status * will re-attempt HD treatment tomorrow (2) Acute respiratory failure with hypoxia: Code(s): J96.01 - Acute respiratory failure with hypoxia Status: Acute Assessment and Plan: * continue ventilator support * s/p tracheostomy * complicated by pneumonia - on antibiotics * will likely need LTACH for ongoing ventilator weaning (3) Hyponatremia: Code(s): E87.1 - Hypo-osmolality and hyponatremia Status: Acute Assessment and Plan: * relatively stable at this time * follow trend (4) Hypotension: Code(s): I95.9 - Hypotension, unspecified Status: Acute Assessment and Plan: * off pressor support * follow trend of hemodynamics (5) Anemia: Code(s): D64.9 - Anemia, unspecified Status: Chronic Assessment and Plan: * due to ESRD and possibly acute illness * on Epogen * follow trend of H/H (6) Diabetes: Code(s): E11.9 - Type 2 diabetes mellitus without complications Status: Acute Assessment and Plan: * follow accucheks * on SSI and Lantus Will continue to follow. Subjective Date/time seen: 10/25/21 13:31 Hemodialysis treatment unable to be done yesterday due to HD catheter malfunction; started on peritoneal dialysis treatment during the days given ongoing issues/problems with HD catheter; otherwise, remains hemodynamically stable and stable mentation (follows commands and nods head to simple yes/no q uestions). Exam Narrative: General: WD/WN male trached and on mechanical ventilation Heart: normal S1 and S2; no rub or gallop Lungs: coarse breath sounds bilaterally Abdomen: obese but soft, nontender, nondistended, positive bowel sounds; PD catheter in place Extremities: trace - 1+ chronic bilateral edema Skin: warm and intact Objective Data Vital Signs Vital Signs: Vital Signs - 24 hr 10/25/21 06:00 10/25/21 08:00 10/25/21 08:11 Temperature 36.8 C Pulse Rate 54 L 57 L 56 L Respiratory Rate 21 H 23 H 24 H Blood Pressure 123/71 132/62 Pulse Oximetry 93 92 10/25/21 08:24 10/25/21 08:26 10/25/21 08:29 Temperature Pulse Rate 58 L 55 L Respiratory Rate 19 Blood Pressure Pulse Oximetry 91 92 10/25/21 10:00 10/25/21 10:30 10/25/21 12:00 Temperature 36.9 C Pulse Rate 56 L 55 L 53 L Respiratory Rate 22 H 23 H Blood Pressure 129/73 122/67 Pulse Oximetry 94 90 97 Intake/Output Intake/Output: Intake & Output 10/22/21 10/23/21 10/24/21 10/25/21 23:59 23:59 23:59 23:59 Intake Total 755 1500 1788 630 Output Total 5367 1117 19 Balance -4612 383 1769 630 Meds/Results Medications: Active Medications Generic Name Dose Route Start Last Admin Trade Name Freq PRN Reason Stop Dose Admin Acetaminophen 650 mg 10/25/21 13:52 10/25/21 14:20 Acetaminophen Elixir 325 Mg/10.15 Ml
[2021-10-25] MEDS: ACETAMINOPHEN ELIXIR 325 MG/10.15 ML UDC 650 MG PO ×2 (14:20→21:12)
[2021-10-25 17:12] LABS: Glucose Point of Care 290 mg/dl (65-105)
[2021-10-25] MEDS: INSULIN ASPART (*BKC) 100 UNITS/ML SUB-Q ×2 (17:13→23:47)
[2021-10-25] MEDS: ROSUVASTATIN 10 MG TABLET PO (21:06)
[2021-10-25 23:45] LABS: Glucose Point of Care 369 mg/dl (65-105)
[2021-10-26] VITALS (25 sets, daily range): BP systolic 101–163; BP diastolic 58–79; PULSE 53–67; RESP 16–33; TEMP 36.4–37.1; O2SAT 95–100
[2021-10-26] MEDS: IPRATROPIUM BR 0.02% INH SOLN 0.5 MG/2.5 ML VIAL INHALATION ×4 (02:10→19:55)
[2021-10-26] MEDS: ALBUTEROL SULFATE NEB 2.5 MG/0.5 ML INH INHALATION ×4 (02:10→19:55)
[2021-10-26 06:30] LABS: Glucose Point of Care 223 mg/dl (65-105)
[2021-10-26] MEDS: INSULIN ASPART (*BKC) 100 UNITS/ML SUB-Q ×2 (06:30→12:11)
[2021-10-26] MEDS: MIDODRINE HCL 10 MG TABLET FEED TUBE ×3 (06:31→21:30)
[2021-10-26 07:12] LABS: Basophils Percent Auto 0.2 % (0.2-1.2); Eosinophils Absolute Auto 0.4 K/mm3 (0-0.3); Eosinophils Percent Auto 2.3 % (0-4.4); Hematocrit 32.9 % (42.0-52.0); Hemoglobin 10.5 g/dL (14.0-18.0); Immature Granulocyte Absolute 0.23 K/mm3 (0.00-0.031); Immature Granulocyte Percent A 1.3 % (0-0.5); Lymphocytes Absolute Auto 0.95 K/mm3 (0.9-3.2); Lymphocytes Percent Auto 5.3 % (18.3-44.2); Mean Corpuscular HGB Conc 31.9 g/dl (32-36); Mean Corpuscular Hemoglobin 30.9 pg (26-34); Mean Corpuscular Volume 96.8 fl (80-100); Mean Platelet Volume 12.1 fl (7.4-10.4); Monocytes Percent Auto 11.3 % (2.6-8.5); Neutrophils Absolute Auto 14.2 K/mm3 (1.3-6.7); Neutrophils Percent Auto 79.6 % (45.5-73.1); Nucleated Red Blood Cells Perc 0.2 % (0.0-0.2); Platelet Count Result 318 k/mm3 (150-375); Red Cell Distribution Width 18.8 % (11.5-14.5); White Blood Count 17.8 K/mm3 (4.5-10.0)
[2021-10-26 07:25] LABS: Alanine Aminotransferase 9 U/L (4-50); Albumin Level 3.6 g/dL (3.5-5.1); Alkaline Phosphatase 171 U/L (38-126); Anion Gap 21 mmol/L (8-16); Aspartate Amino Transferase 27 U/L (17-59); Bilirubin,Total 1.2 mg/dL (0.2-1.3); Blood Urea Nitrogen > 120 mg/dL (9-20); Calcium 8.5 mg/dL (8.4-10.2); Carbon Dioxide 20 mmol/L (22-30); Chloride 93 mmol/L (98-107); Estimated CRCL calculation 10 ml/min; Estimated Glomerular Filt Rate 6; Glucose 206 mg/dL (65-110); Magnesium 2.6 mg/dL (1.6-2.3); Potassium 4.3 mmol/L (3.4-5.0); Sodium 134 mmol/L (137-145)
[2021-10-26 07:29] LABS: INR 1.7; Prothrombin Time 19.4 Seconds (11.1-14.7)
--- NOTE | 2021-10-26 07:51 | PC.NURSE ---
Notified electrotype molder of HD treatment at 0752 on 10/26/21. Waiting for callback.
[2021-10-26] MEDS: DORNASE ALFA INH SOLN 1 MG/ML 2.5 ML AMP 2.5 MG INHALATION (08:24)
--- NOTE | 2021-10-26 08:54 | P.PNINT_ITS ---
Progress Note: A&P Assessment and Plan (1) Acute respiratory failure with hypoxia: Code(s): J96.01 - Acute respiratory failure with hypoxia Status: Acute Assessment and Plan: Acute Respiratory failure secondary to cardiac arrest, pneumonia, pulmonary edema, left pleural effusion. Intubated on 10/04/2021 during code blue -chest x-ray and ABGs reviewed -currently on ASV mode with 35% FiO2 and 8 of PEEP. Placed patient on pressure support ventilation 12/5 will further decrease to 10/5 as tolerated -off all sedation since 10/09 -10/07/2021: Sputum culture growing E coli, sensitive to cefepime, Zosyn, imipenem and gentamicin. - 10/11 -repeat Sputum culture still growing E coli ESBL which is sensitive to imipenem. -10/14 started on imipenem, continue for total of 14 days -repeat sputum cultures -patient not tolerating pressure support ventilation as he becomes tachypneic and diaphoretic -tracheostomy done on 10/17/2021 10/09/2021: CT chest, abdomen, pelvis without contrast 1. Small right and moderate left pleural effusions with collapse of the bilateral lower lobes with additional dependent compressive atelectasis. 2. Cardiomegaly. 3. Nonspecific 2.2 x 1.4 cm anterior mediastinal mass with differential including enlarged lymph node or thymoma. 4. Small volume of ascites with peritoneal dialysis catheter. (2) End-stage renal disease on peritoneal dialysis: Onset Date: Unknown Code(s): N18.6 - End stage renal disease; Z99.2 - Dependence on renal dialysis Status: Acute Assessment and Plan: patient is being followed by Nephrology and is currently peritoneal dialysis. -discussed with nephrology. Patient will need a PEG tube, Dr. Combs plans to transition him to hemodialysis. - surgery has been consulted for tunneled dialysis catheter placement, unable to access left subclavian on 10/20. -10/22/2021: Right-sided tunneled IJ dialysis catheter placed by surgery -hemodialysis this was started on 10/23/2021, they were able to remove 11 her mL of fluid, the catheter clotted and that they have put cath flow in it. -10/24/2021: Hemodialysis was unsuccessful, questionable kinking of the catheter -discussed with Nephrology, patient currently on peritoneal dialysis as his hemodialysis catheter is malfunctioning. -discussed with Dr. Urrutia on 10/25: They will switch to a shorter HD catheter on 10/27/2021 as it has a kink on the chest x-ray -the dialysis nurse could not aspirate any blood from either port on the HD catheter this morning (3) Cardiac arrest: Code(s): I46.9 - Cardiac arrest, cause unspecified Status: Acute Assessment and Plan: Its possible patient's cardiac arrest secondary to junctional bradycardia or slow AFib Troponins, although mildly elevated in presence of end-stage renal disease, remained flat. EKG on admission showed AFib/ junctional bradycardia with heart rate in 40s -off dopamine 10/12 - off Levophed 10/18 - he may need transvenous pacemaker and I have discussed with Cardiology - cardiology is following -repeat head CT on 10/09: No acute intracranial findings or interval change, mild atrophy and microangiopathy. -patient opens his eyes to name and follows simple commands in all extremities 10/06/2021 Echo: - mild LVH; moderate-severe LV systolic dysfunction, ejection fraction about 30- 35% - Moderate-severe aortic stenosis - Moderate pulmonary hypertension, RVSP 54 mmHg (4) Persistent atrial fibrillation: Code(s): I48.19 - Other persistent atrial fibrillation Status: Acute Assessment and Plan: currently in junctional bradyca
[2021-10-26] MEDS: SILVER SULFADIAZINE 1% CR 50 GM JAR (*BKC) 1 APPLIC TOPICAL (09:20)
[2021-10-26] MEDS: SOD HYPOCHLORITE 1/4 STRENGTH 473 ML 1 APPLIC TOPICAL (09:20)
[2021-10-26] MEDS: MUPIROCIN 2% OINT 22 GM TUBE 1 APPLIC TOPICAL (09:20)
[2021-10-26] MEDS: HYDROcodone/acetaminophen (*CRX) 10-325 MG TABLET 1 TAB PO ×2 (09:21→22:15)
[2021-10-26] MEDS: PANTOPRAZOLE SODIUM IV 40 MG VIAL IV PUSH (09:22)
[2021-10-26] MEDS: CALCIUM ACETATE 667 MG TABLET 1334 MG FEED TUBE ×3 (09:22→16:25)
[2021-10-26] MEDS: BRIMONIDINE TARTRATE 0.2% OP SOLN 5 ML BTL 1 DROP EACH EYE ×2 (09:22→21:27)
[2021-10-26] MEDS: DORZOLAMIDE/TIMOLOL OPHTH SOL 10 ML BOTTLE 1 DROP EACH EYE ×2 (09:22→21:27)
[2021-10-26] MEDS: HYDROCORTISONE SODIUM SUCCINATE 100 MG/2 ML VIAL 50 MG IV PUSH (09:22)
[2021-10-26] MEDS: allopurinoL 100 MG TABLET PO (09:23)
[2021-10-26] MEDS: APIXABAN 5 MG TABLET PO (09:23)
[2021-10-26] MEDS: INSULIN GLARGINE (*BKC) 100 UNITS/ML 45 UNITS SUB-Q (09:34)
[2021-10-26 11:43] LABS: Glucose Point of Care 327 mg/dl (65-105)
--- NOTE | 2021-10-26 13:23 | PM.PNNEP ---
Progress Note: A&P Assessment and Plan (1) End-stage renal disease (ESRD): Code(s): N18.6 - End stage renal disease Status: Acute Assessment and Plan: peritoneal dialysis treatment today and this evening since unable to perform hemodialysis at this time follow electrolytes and volume status Surgery to re-evaluated HD catheter tomorrow (2) Acute respiratory failure with hypoxia: Code(s): J96.01 - Acute respiratory failure with hypoxia Status: Acute Assessment and Plan: continue ventilator support s/p tracheostomy complicated by pneumonia - on antibiotics will likely need LTACH for ongoing ventilator weaning (3) Hyponatremia: Code(s): E87.1 - Hypo-osmolality and hyponatremia Status: Acute Assessment and Plan: relatively stable at this time follow trend (4) Hypotension: Code(s): I95.9 - Hypotension, unspecified Status: Acute Assessment and Plan: off pressor support follow trend of hemodynamics on midodrine therapy (5) Anemia: Code(s): D64.9 - Anemia, unspecified Status: Chronic Assessment and Plan: due to ESRD and possibly acute illness on Epogen follow trend of H/H (6) Diabetes: Code(s): E11.9 - Type 2 diabetes mellitus without complications Status: Acute Assessment and Plan: follow accucheks on SSI and Lantus Discussed situation with Dr. Zafar. Will continue to follow. Subjective Date/time seen: 10/26/21 13:23 Once again, attempted dialysis treatment earlier this AM aborted due to malfunctioning HD catheter; started back on PD treatment today (tolerated treatment on my visit at 1:00pm); will likely plan HD treatment this evening as well to compensate for missed HD treatments; no other issues/events to report; no apparent distress noted. Exam Narrative: General: WD/WN male trached and on mechanical ventilation Heart: normal S1 and S2; no rub or gallop Lungs: coarse breath sounds bilaterally Abdomen: obese but soft, nontender, nondistended, positive bowel sounds; PD catheter in place Extremities: trace - 1+ chronic bilateral edema Skin: chronic skin changes noted in LEs Objective Data Vital Signs Vital Signs: Vital Signs Temp Pulse Resp BP Pulse Ox 10/26/21 12:00 36.4 C 57 L 17 111/60 97 10/26/21 10:58 56 L 97 10/26/21 10:00 61 16 124/65 98 10/26/21 08:27 58 L 28 H 96 10/26/21 08:20 60 33 H 10/26/21 08:00 37.1 C 59 L 20 125/58 L 95 10/26/21 06:00 58 L 20 125/58 L 96 10/26/21 05:05 60 96 10/26/21 04:00 37.1 C 55 L 23 H 114/60 96 10/26/21 03:53 95 10/26/21 02:18 59 L 23 H 10/26/21 02:10 53 L 23 H 10/26/21 02:00 55 L 17 163/69 H 96 10/26/21 00:00 36.8 C 60 20 128/60 98 10/25/21 23:57 98 10/25/21 23:11 58 L 97 10/25/21 22:00 55 L 16 116/67 95 10/25/21 20:12 57 L 22 H 10/25/21 20:02 55 L 97 10/25/21 20:00 36.6 C 56 L 21 H 130/64 97 10/25/21 19:58 97 10/25/21 18:00 58 L 20 144/80 H 97 10/25/21 17:48 58 L 97 10/25/21 16:00 55 L 10/25/21 15:57 97 10/25/21 15:54 36.4 C L 60 29 H 147/78 H 97 10/25/21 14:40 53 L 24 H 10/25/21 14:39 54 L 96 10/25/21 14:30 53 L 20 Intake/Output Intake/Output: Intake & Output 10/23/21 10/24/21 10/25/21 10/26/21 23:59 23:59 23:59 23:59 Intake Total 1500 1788 1726 670 Output Total 1117 19 1668 Balance 383 1769 1726 -998 Meds/Results Medications: Active Medications Generic Name Dose Route Start Last Admin Trade Name Freq PRN Reason Stop Dose Admin Acetaminophen 650 mg 10/25/21 13:52 10/25/21 21:12 Acetaminophen Elixir 325 Mg/10.15 Ml Udc PO 650 mg Q6H PRN Administration Mild Pain (1-3) or Fever Hydrocodone Bitart/Acetaminophen 1 tab 10/16/21 07:42 04/24/22 09:21 Hydrocodone/Acetaminophen (*Crx) 10-637
--- NOTE | 2021-10-26 15:14 | PM.IMPN ---
Progress Note: A&P Assessment and Plan (1) Acute respiratory failure with hypoxia: Code(s): J96.01 - Acute respiratory failure with hypoxia Status: Acute Assessment and Plan: Acute Respiratory failure secondary to cardiac arrest, pneumonia, pulmonary edema, left pleural effusion. Intubated on 10/04/2021 during code blue -chest x-ray and ABGs reviewed -currently on ASV mode with 35% FiO2 and 8 of PEEP. Placed patient on pressure support ventilation 12/5 will further decrease to 10/5 as tolerated -off all sedation since 10/09 -10/07/2021: Sputum culture growing E coli, sensitive to cefepime, Zosyn, imipenem and gentamicin. - 10/11 -repeat Sputum culture still growing E coli ESBL which is sensitive to imipenem. -10/14 started on imipenem, continue for total of 14 days -repeat sputum cultures -patient not tolerating pressure support ventilation as he becomes tachypneic and diaphoretic -tracheostomy done on 10/17/2021 10/09/2021: CT chest, abdomen, pelvis without contrast 1. Small right and moderate left pleural effusions with collapse of the bilateral lower lobes with additional dependent compressive atelectasis. 2. Cardiomegaly. 3. Nonspecific 2.2 x 1.4 cm anterior mediastinal mass with differential including enlarged lymph node or thymoma. 4. Small volume of ascites with peritoneal dialysis catheter. (2) End-stage renal disease on peritoneal dialysis: Onset Date: Unknown Code(s): N18.6 - End stage renal disease; Z99.2 - Dependence on renal dialysis Status: Acute Assessment and Plan: patient is being followed by Nephrology and is currently peritoneal dialysis. -discussed with nephrology. Patient will need a PEG tube, Dr. Combs plans to transition him to hemodialysis. - surgery has been consulted for tunneled dialysis catheter placement, unable to access left subclavian on 10/20. -10/22/2021: Right-sided tunneled IJ dialysis catheter placed by surgery -hemodialysis this was started on 10/23/2021, they were able to remove 11 her mL of fluid, the catheter clotted and that they have put cath flow in it. -10/24/2021: Hemodialysis was unsuccessful, questionable kinking of the catheter -discussed with Nephrology, patient currently on peritoneal dialysis as his hemodialysis catheter is malfunctioning. -discussed with Dr. Urrutia on 10/25: They will switch to a shorter HD catheter on 10/27/2021 as it has a kink on the chest x-ray -the dialysis nurse could not aspirate any blood from either port on the HD catheter this morning (3) Cardiac arrest: Code(s): I46.9 - Cardiac arrest, cause unspecified Status: Acute Assessment and Plan: Its possible patient's cardiac arrest secondary to junctional bradycardia or slow AFib Troponins, although mildly elevated in presence of end-stage renal disease, remained flat. EKG on admission showed AFib/ junctional bradycardia with heart rate in 40s -off dopamine 10/12 - off Levophed 10/18 - he may need transvenous pacemaker and I have discussed with Cardiology - cardiology is following -repeat head CT on 10/09: No acute intracranial findings or interval change, mild atrophy and microangiopathy. -patient opens his eyes to name and follows simple commands in all extremities 10/06/2021 Echo: - mild LVH; moderate-severe LV systolic dysfunction, ejection fraction about 30-35% - Moderate-severe aortic stenosis - Moderate pulmonary hypertension, RVSP 54 mmHg (4) Persistent atrial fibrillation: Code(s): I48.19 - Other persistent atrial fibrillation Status: Acute Assessment and Plan: currently in junctional bradycardia/sinus Jacinto- see above - Anny resumed on 10/24/[address] Bryan, patient insurance clerk, who stated stated that there is a high risk of peritonitis if he places the PEG tube. He recommended checking with the LTAC that if they would take him on a Dobbhoff tube or NG tube for feeding. (5) Bradycardia
[2021-10-26 18:22] LABS: Glucose Point of Care 452 mg/dl (65-105)
[2021-10-26] MEDS: INSULIN ASPART (*BKC) 100 UNITS/ML 10 UNITS SUB-Q (18:41)
[2021-10-26] MEDS: INSULIN GLARGINE (*BKC) 100 UNITS/ML 50 UNITS SUB-Q (21:27)
[2021-10-26] MEDS: ROSUVASTATIN 10 MG TABLET PO (21:30)
[2021-10-27] VITALS (44 sets, daily range): BP systolic 71–128; BP diastolic 40–71; PULSE 53–73; RESP 12–26; TEMP 35.7–37; O2SAT 92–100
[2021-10-27 00:07] LABS: Glucose Point of Care 402 mg/dl (65-105)
[2021-10-27] MEDS: INSULIN ASPART (*BKC) 100 UNITS/ML SUB-Q ×2 (00:07→05:58)
[2021-10-27] MEDS: ALBUTEROL SULFATE NEB 2.5 MG/0.5 ML INH INHALATION ×4 (01:35→20:10)
[2021-10-27] MEDS: IPRATROPIUM BR 0.02% INH SOLN 0.5 MG/2.5 ML VIAL INHALATION ×4 (01:35→20:10)
[2021-10-27 04:43] LABS: Basophils Percent Auto 0.1 % (0.2-1.2); Eosinophils Absolute Auto 0.5 K/mm3 (0-0.3); Eosinophils Percent Auto 2.9 % (0-4.4); Hematocrit 32.6 % (42.0-52.0); Hemoglobin 11.1 g/dL (14.0-18.0); Immature Granulocyte Absolute 0.14 K/mm3 (0.00-0.031); Immature Granulocyte Percent A 0.9 % (0-0.5); Lymphocytes Absolute Auto 0.91 K/mm3 (0.9-3.2); Lymphocytes Percent Auto 5.8 % (18.3-44.2); Mean Corpuscular Hemoglobin 31.4 pg (26-34); Mean Corpuscular Volume 92.1 fl (80-100); Mean Platelet Volume 11.8 fl (7.4-10.4); Monocytes Absolute Auto 1.8 K/mm3 (0.1-0.6); Monocytes Percent Auto 11.7 % (2.6-8.5); Neutrophils Absolute Auto 12.3 K/mm3 (1.3-6.7); Neutrophils Percent Auto 78.6 % (45.5-73.1); Nucleated Red Blood Cells Perc 0.3 % (0.0-0.2); Platelet Count Result 348 k/mm3 (150-375); Red Blood Count 3.54 M/mm3 (4.6-6.20); Red Cell Distribution Width 18.2 % (11.5-14.5); White Blood Count 15.6 K/mm3 (4.5-10.0)
[2021-10-27 04:55] LABS: INR 1.7
[2021-10-27 04:59] LABS: Alanine Aminotransferase 13 U/L (4-50); Albumin Level 3.5 g/dL (3.5-5.1); Alkaline Phosphatase 177 U/L (38-126); Anion Gap 14 mmol/L (8-16); Aspartate Amino Transferase 32 U/L (17-59); Bilirubin,Total 1.2 mg/dL (0.2-1.3); Blood Urea Nitrogen 116 mg/dL (9-20); Calcium 9.2 mg/dL (8.4-10.2); Carbon Dioxide 28 mmol/L (22-30); Chloride 92 mmol/L (98-107); Estimated CRCL calculation 11 ml/min; Estimated Glomerular Filt Rate 7; Glucose 269 mg/dL (65-110); Magnesium 2.6 mg/dL (1.6-2.3); Potassium 3.4 mmol/L (3.4-5.0); Sodium 134 mmol/L (137-145)
[2021-10-27 06:03] LABS: Glucose Point of Care 304 mg/dl (65-105)
[2021-10-27] MEDS: BRIMONIDINE TARTRATE 0.2% OP SOLN 5 ML BTL 1 DROP EACH EYE ×2 (08:32→20:07)
[2021-10-27] MEDS: LIDO 1%/EPINEPHRINE 1:100,000 20 ML VIAL INFILTRATE (08:32)
[2021-10-27] MEDS: DORZOLAMIDE/TIMOLOL OPHTH SOL 10 ML BOTTLE 1 DROP EACH EYE ×2 (08:32→20:07)
[2021-10-27] MEDS: PANTOPRAZOLE SODIUM IV 40 MG VIAL IV PUSH (08:32)
[2021-10-27] MEDS: allopurinoL 100 MG TABLET PO (08:32)
[2021-10-27] MEDS: MIDODRINE HCL 10 MG TABLET FEED TUBE ×3 (08:32→21:24)
[2021-10-27] MEDS: INSULIN GLARGINE (*BKC) 100 UNITS/ML 60 UNITS SUB-Q (08:39)
[2021-10-27] MEDS: MIDODRINE HCL 10 MG TABLET PO (09:25)
--- NOTE | 2021-10-27 09:26 | PC.NURSE ---
Spoke with Dr. Morgan regarding drop in patient's BP after dialysis was started. New order to give one extra dose of 10mg Po Midodrine now and for kosher inspector to only clean the blood, not take fluids off.
--- NOTE | 2021-10-27 09:50 | P.PNINT_ITS ---
Progress Note: A&P Assessment and Plan (1) Acute respiratory failure with hypoxia: Code(s): J96.01 - Acute respiratory failure with hypoxia Status: Acute Assessment and Plan: Acute Respiratory failure secondary to cardiac arrest, pneumonia, pulmonary edema, left pleural effusion. Intubated on 10/04/2021 during code blue -chest x-ray and ABGs reviewed -currently on ASV mode with 35% FiO2 and 8 of PEEP. Placed patient on pressure support ventilation 12/5 will further decrease to 10/5 as tolerated -off all sedation since 10/09 -10/07/2021: Sputum culture growing E coli, sensitive to cefepime, Zosyn, imipenem and gentamicin. - 10/11 -repeat Sputum culture still growing E coli ESBL which is sensitive to imipenem. -10/14 started on imipenem, continue for total of 14 days -repeat sputum cultures -patient not tolerating pressure support ventilation as he becomes tachypneic and diaphoretic -tracheostomy done on 10/17/2021 10/09/2021: CT chest, abdomen, pelvis without contrast 1. Small right and moderate left pleural effusions with collapse of the bilateral lower lobes with additional dependent compressive atelectasis. 2. Cardiomegaly. 3. Nonspecific 2.2 x 1.4 cm anterior mediastinal mass with differential including enlarged lymph node or thymoma. 4. Small volume of ascites with peritoneal dialysis catheter. (2) End-stage renal disease on peritoneal dialysis: Onset Date: Unknown Code(s): N18.6 - End stage renal disease; Z99.2 - Dependence on renal dialysis Status: Acute Assessment and Plan: patient is being followed by Nephrology and is currently peritoneal dialysis. -discussed with nephrology. Patient will need a PEG tube, Dr. Combs plans to transition him to hemodialysis. - surgery has been consulted for tunneled dialysis catheter placement, unable to access left subclavian on 10/20. -10/22/2021: Right-sided tunneled IJ dialysis catheter placed by surgery -hemodialysis this was started on 10/23/2021, they were able to remove 11 her mL of fluid, the catheter clotted and that they have put cath flow in it. -10/24/2021: Hemodialysis was unsuccessful, questionable kinking of the catheter -discussed with Nephrology, patient currently on peritoneal dialysis as his hemodialysis catheter is malfunctioning. -10/27/2021: Dr. Quintana did pulled by the HD catheter 3 cm. Hemodialysis started, the dialysis not had to pull the dialysis catheter and make a taut and started functioning. -discussed with surgery, will not remove the peritoneal dialysis catheter today, will try another round of hemodialysis and if that catheter functions correctly then we will discuss with Nephrology about removing the peritoneal dialysis catheter (3) Cardiac arrest: Code(s): I46.9 - Cardiac arrest, cause unspecified Status: Acute Assessment and Plan: Its possible patient's cardiac arrest secondary to junctional bradycardia or slow AFib Troponins, although mildly elevated in presence of end-stage renal disease, remained flat. EKG on admission showed AFib/ junctional bradycardia with heart rate in 40s -off dopamine 10/12 - off Levophed 10/18 - he may need transvenous pacemaker and I have discussed with Cardiology - cardiology is following -repeat head CT on 10/09: No acute intracranial findings or interval change, mild atrophy and microangiopathy. -patient opens his eyes to name and follows simple commands in all extremities 10/06/2021 Echo: - mild LVH; moderate-severe LV systolic dysfunction, ejection fraction about 30- 35% - Moderate-severe aortic stenosis - Moderate pulmonary hypertension, RVSP 54 mmHg (4)
[2021-10-27] MEDS: CALCIUM ACETATE 667 MG TABLET 1334 MG FEED TUBE ×3 (10:25→17:39)
--- NOTE | 2021-10-27 11:17 | PCFNICU ---
ICU Rounding Note: Pt current nutrition is Nepro at 60 ml/hr over 22 hours. Last recorded weight is 119.7 kg, down from 122.5 kg on admit. Bowel Motility: +BM reported 10/27 Labs Reviewed:Glu 269, GFR 7,BUN 116, Cr 7.6, Na 134, Hct 32.6,Hgb 11.0 Meds Noted: PhosLo, Atrovent, Midodrine,Protonix, Crestor, Retacrit, Zyloprim, Miralax, NovoLog, Lantus Skin: left lower leg-venous status, right foot-DM ulcer Additional Notes: Patient remains current with Trach. Plans for tube feedings to be restarted with Nepro at 60 ml/hr over 22 hours. Plans for Dialysis tomorrow. No PEG plans at this time. LTAC will take a Dobbhoff, plans for feeding tube change. Agree with tube feeding orders. Free water flush 30 ml q 4 hours. Following daily in ICU rounds. Will be reassessing every Wednesday and Wednesday..
--- NOTE | 2021-10-27 11:30 | WPDGIPROGNO ---
Progress Note: A&P Assessment and Plan (1) Respiratory failure: Code(s): J96.90 - Respiratory failure, unspecified, unspecified whether with hypoxia or hypercapnia Status: Acute (2) Ventilator dependence: Onset Date: ~10/2021 Code(s): Z99.11 - Dependence on respirator [ventilator] status Status: Acute (3) Mediastinal mass: Code(s): J98.59 - Other diseases of mediastinum, not elsewhere classified Status: Acute (4) End-stage renal disease on peritoneal dialysis: Onset Date: Unknown Code(s): N18.6 - End stage renal disease; Z99.2 - Dependence on renal dialysis Status: Acute (5) Chronic anticoagulation: Code(s): 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 At the present time patient has rather high risk of infection if PEG tube is placed while a patient on peritoneal dialysis. And also risks if peritoneal dialysis resumed shortly after placement of PEG tube. At the present time I understand extended care placement will take him if he remains on Dobbhoff tube feedings. I would recommend continuing Dobbhoff tube feedings for nutrition and avoiding PEG tube because of rest with peritoneal dialysis catheter. Software Engineering Associate Manager agrees. And apparently this is acceptable for the long-term care placement. Subjective Date/time seen: 10/27/21 11:30 Patient remains on the ventilator. Currently via tracheostomy. Patient has become somewhat more alert. Over the weekend continued to required dialysis via peritoneal dialysis. There have been some issues with hemodialysis. Today receiving hemodialysis however. Review of Systems Review of Systems: ROS unobtainable: Yes unobtainable due to endotracheal tube Exam Narrative: Vital signs stable. HEENT exam reveals no icterus. Lungs are a few rhonchi. Heart without murmur. Abdomen is obese. Bowel sounds are present soft peritoneal dialysis catheter remains in place. Objective Data Vital Signs Vital Signs: Vital Signs - 24 hr 10/26/21 12:00 10/26/21 14:00 10/26/21 14:12 Temperature 97.6 F Pulse Rate 54 L 60 60 Respiratory Rate 17 19 21 H Blood Pressure 111/60 123/61 Pulse Oximetry 97 97 10/26/21 14:13 10/26/21 14:18 10/26/21 16:00 Temperature 97.6 F Pulse Rate 59 L 60 59 L Respiratory Rate 25 H 23 H Blood Pressure 130/63 Pulse Oximetry 97 97 10/26/21 18:00 10/26/21 19:00 10/26/21 19:55 Temperature 97.6 F Pulse Rate 61 61 59 L Respiratory Rate 20 20 21 H Blood Pressure 128/79 128/79 Pulse Oximetry 97 100 10/26/21 20:00 10/26/21 20:05 10/26/21 22:00 Temperature 98.2 F Pulse Rate 62 59 L 60 Respiratory Rate 27 H 21 H 22 H Blood Pressure 125/67 119/70 Pulse Oximetry 100 96 10/27/21 00:00 10/27/21 00:25 10/27/21 01:40 Temperature 97.5 F L Pulse Rate 58 L 60 56 L Respiratory Rate 22 H 22 H Blood Pressure 128/65 Pulse Oximetry 100 98 92 10/27/21 01:50 10/27/21 02:00 10/27/21 04:00 Temperature 98.3 F Pulse Rate 56 L 58 L 62 Respiratory Rate 22 H 12 17 Blood Pressure 79/56 L 102/64 Pulse Oximetry 93 97 10/27/21 05:08 10/27/21 06:00 10/27/21 07:54 Temperature 98.3 F Pulse Rate 60 62 62 Respiratory Rate 24 H 24 H Blood Pressure 105/67 105/67 Pulse Oximetry 95 96 10/27/21 08:00 10/27/21 08:15 10/27/21 08:18 Temperature 96.2 F L Pulse Rate 63 65 68 Respiratory Rate 19 21 H Blood Pressure 103/68 Pulse Oximetry 100 97 10/27/21 08:25 10/27/21 08:50 10/27/21 09:00 Temperature Pulse Rate 64 71 73 Respiratory Ra
--- NOTE | 2021-10-27 12:05 | PM.PNNEP ---
Progress Note: A&P Assessment and Plan (1) End-stage renal disease (ESRD): Code(s): N18.6 - End stage renal disease Status: Acute Assessment and Plan: peritoneal dialysis treatment yesterday during the day and evening HD today now that catheter is working better today following repositioning follow electrolytes and volume status will plan another HD treatment tomorrow for further uremic clearance (2) Acute respiratory failure with hypoxia: Code(s): J96.01 - Acute respiratory failure with hypoxia Status: Acute Assessment and Plan: continue ventilator support s/p tracheostomy complicated by pneumonia - on antibiotics will likely need LTACH for ongoing ventilator weaning (3) Hyponatremia: Code(s): E87.1 - Hypo-osmolality and hyponatremia Status: Acute Assessment and Plan: relatively stable at this time will likely correct more with hemodialysis follow trend (4) Hypotension: Code(s): I95.9 - Hypotension, unspecified Status: Acute Assessment and Plan: off pressor support follow trend of hemodynamics on midodrine therapy (5) Anemia: Code(s): D64.9 - Anemia, unspecified Status: Chronic Assessment and Plan: due to ESRD and possibly acute illness on Epogen follow trend of H/H (6) Diabetes: Code(s): E11.9 - Type 2 diabetes mellitus without complications Status: Chronic Assessment and Plan: follow accucheks on SSI and Lantus Will continue to follow. Subjective Date/time seen: 10/27/21 12:05 S/P repositioning of HD catheter today at bedside; tolerating hemodialysis treatment at the time of my visit (seen on HD at 11:45AM) but dialysis nurse had to provide continuous retraction of HD catheter for acceptable blood flows; some issues with hypotension at the start of treatment but relatively stable with discontinuation of fluid removal and lower blood flow rates; tolerated CCPD treatment last night and yesterday during the day as well. Exam Narrative: General: WD/WN male trached and on mechanical ventilation Heart: normal S1 and S2; no rub or gallop Lungs: coarse breath sounds bilaterally Abdomen: obese but soft, nontender, nondistended, positive bowel sounds; PD catheter in place Extremities: trace - 1+ chronic bilateral edema Skin: chronic skin changes noted in LEs Objective Data Vital Signs Vital Signs: Vital Signs Temp Pulse Resp BP Pulse Ox 10/27/21 12:04 35.7 C L 69 18 109/71 95 10/27/21 12:03 64 99/63 L 10/27/21 11:35 68 96/57 L 10/27/21 11:16 67 99/55 L 10/27/21 11:01 72 97 10/27/21 10:59 66 97/60 L 10/27/21 10:40 66 81/55 L 10/27/21 10:20 71 95/56 L 10/27/21 10:00 66 15 72/54 L 98 10/27/21 09:40 66 87/48 L 10/27/21 09:20 70 73/53 L 10/27/21 09:14 35.7 C L 69 26 H 103/68 10/27/21 09:00 73 71/45 L 10/27/21 08:50 71 103/62 10/27/21 08:25 64 22 H 10/27/21 08:18 68 97 10/27/21 08:15 65 21 H 10/27/21 08:00 35.7 C L 63 19 103/68 100 10/27/21 07:54 36.8 C 62 24 H 105/67 10/27/21 06:00 62 24 H 105/67 96 10/27/21 05:08 60 95 10/27/21 04:00 36.8 C 62 17 102/64 97 10/27/21 02:00 58 L 12 79/56 L 93 10/27/21 01:50 56 L 22 H 10/27/21 01:40 56 L 22 H 92 10/27/21 00:25 60 98 10/27/21 00:00 36.4 C L 58 L 22 H 128/65 100 10/26/21 22:00 60 22 H 119/70 96 10/26/21 20:05 59 L 21 H 10/26/21 20:00 36.8 C 62 27 H 125/67 100 10/26/21 19:55 59 L 21 H 100 10/26/21 19:00 36.4 C 61 20 128/79 10/26/21 18:00 61 20 128/79 97 10/26/21 16:00 36.4 C 59 L 23 H 130/63 97 10/26/21 14:18 60 25 H 10/26/21 14:13 59 L 97 10/26/21 14:12 60 21 H 10/26/21 14:00 60 19 123/61 97 Intake/Output Intake/Output: Intake & Output 10/24/21 10/25/21 10/26/2110/27/
[2021-10-27 12:22] LABS: Glucose Point of Care 81 mg/dl (65-105)
[2021-10-27] MEDS: SILVER SULFADIAZINE 1% CR 50 GM JAR (*BKC) 1 APPLIC TOPICAL (12:31)
[2021-10-27] MEDS: SOD HYPOCHLORITE 1/4 STRENGTH 473 ML 1 APPLIC TOPICAL (12:31)
[2021-10-27] MEDS: MUPIROCIN 2% OINT 22 GM TUBE 1 APPLIC TOPICAL (12:31)
--- NOTE | 2021-10-27 15:33 | PM.IMPN ---
Progress Note: A&P Assessment and Plan (1) Acute respiratory failure with hypoxia: Code(s): J96.01 - Acute respiratory failure with hypoxia Status: Acute Assessment and Plan: Acute Respiratory failure secondary to cardiac arrest, pneumonia, pulmonary edema, left pleural effusion. Intubated on 10/04/2021 during code blue -chest x-ray and ABGs reviewed -currently on ASV mode with 35% FiO2 and 8 of PEEP. Placed patient on pressure support ventilation 12/5 will further decrease to 10/5 as tolerated -off all sedation since 10/09 -10/07/2021: Sputum culture growing E coli, sensitive to cefepime, Zosyn, imipenem and gentamicin. - 10/11 -repeat Sputum culture still growing E coli ESBL which is sensitive to imipenem. -10/14 started on imipenem, continue for total of 14 days -repeat sputum cultures -patient not tolerating pressure support ventilation as he becomes tachypneic and diaphoretic -tracheostomy done on 10/17/2021 10/09/2021: CT chest, abdomen, pelvis without contrast 1. Small right and moderate left pleural effusions with collapse of the bilateral lower lobes with additional dependent compressive atelectasis. 2. Cardiomegaly. 3. Nonspecific 2.2 x 1.4 cm anterior mediastinal mass with differential including enlarged lymph node or thymoma. 4. Small volume of ascites with peritoneal dialysis catheter. (2) End-stage renal disease on peritoneal dialysis: Onset Date: Unknown Code(s): N18.6 - End stage renal disease; Z99.2 - Dependence on renal dialysis Status: Acute Assessment and Plan: patient is being followed by Nephrology and is currently peritoneal dialysis. -discussed with nephrology. Patient will need a PEG tube, Dr. Combs plans to transition him to hemodialysis. - surgery has been consulted for tunneled dialysis catheter placement, unable to access left subclavian on 10/20. -10/22/2021: Right-sided tunneled IJ dialysis catheter placed by surgery -hemodialysis this was started on 10/23/2021, they were able to remove 11 her mL of fluid, the catheter clotted and that they have put cath flow in it. -10/24/2021: Hemodialysis was unsuccessful, questionable kinking of the catheter -discussed with Nephrology, patient currently on peritoneal dialysis as his hemodialysis catheter is malfunctioning. -10/27/2021: Dr. Quintana did pulled by the HD catheter 3 cm. Hemodialysis started, the dialysis not had to pull the dialysis catheter and make a taut and started functioning. -discussed with surgery, will not remove the peritoneal dialysis catheter today, will try another round of hemodialysis and if that catheter functions correctly then we will discuss with Nephrology about removing the peritoneal dialysis catheter (3) Cardiac arrest: Code(s): I46.9 - Cardiac arrest, cause unspecified Status: Acute Assessment and Plan: Its possible patient's cardiac arrest secondary to junctional bradycardia or slow AFib Troponins, although mildly elevated in presence of end-stage renal disease, remained flat. EKG on admission showed AFib/ junctional bradycardia with heart rate in 40s -off dopamine 10/12 - off Levophed 10/18 - he may need transvenous pacemaker and I have discussed with Cardiology - cardiology is following -repeat head CT on 10/09: No acute intracranial findings or interval change, mild atrophy and microangiopathy. -patient opens his eyes to name and follows simple commands in all extremities 10/06/2021 Echo: - mild LVH; moderate-severe LV systolic dysfunction, ejection fraction about 30-35% - Moderate-severe aortic stenosis - Moderate pulmonary hypertension, RVSP 54 mmHg (4) Persistent atrial fibrillation: Code(s): I48.19 - Other persistent atrial fibrillation Status: Acute Assessment and Plan: currently in junctional bradycardia/sinus Jacinto- see above - Eliquis resumed on 10/24/[address] Bryan, career placement services counselor, who stated stated ju
--- NOTE | 2021-10-27 17:06 | W.PM.PROC2 ---
Procedure Note - Detailed Date of Procedure 10/27/21 Pre-op Diagnosis 1. chronic renal failure. 2. Poorly functioning tunneled dialysis catheter Post-op Diagnosis Same Procedure Performed Repositioning of tunneled dialysis catheter and re-suture Surgeon MD [employer] Sales Representative ICU nurse, [place] Anesthesia Local ( 1% xylocaine with epinephrine) Indications patient had placement of a tunneled dialysis catheter approximately 5 days ago. Day following the placement he had 1 hour of dialysis but there was poor flow and problems with clotting in the line. Following day it was tried again and apparently not tried for long as the dialysis nurse could not flush or aspirate well from the line and Cathflo was placed in the catheter. Findings Initial aspiration from both sides of the line did not return dark blood. All sutures holding the catheter were removed and the catheter was retracted toward the feet about 3 cm immediately upon doing this both lines were able to be draw 0 trial head easily with good dark blood. Description of Procedure At the patient's bedside under sterile technique I repositioned the catheter. Details: Initially the sterile dressing around the patient's tunneled dialysis catheter on the right chest was removed. Following this I prepped with chlorhexidine. Following this I used a suture removal kit in sterile number a clubs to remove the sutures of 3-0 nylon holding the catheter at its exit site and the 2 sutures holding the Y connector such that the catheter could be withdrawn toward the feet. Having left 10 cc syringes on each of the dialysis lines, we aspirated back as soon as I pulled the catheter out about 3 cm. There was an immediate good flow (aspirate) of dark blood and both sides were flushed with 5 cc of sterile saline. Following this we left both lines unclamped and with sterile syringes full of some sterile saline connected. I then carefully selected sites on the patient's anterior chest to re-suture the Y connector of the tunneled dialysis catheter to the patient. Then local anesthetic was infiltrated into the skin a the 2 sites. Following this 3-0 nylon was used to place 2 new sutures in the patient's skin and an air knot was tied followed by passing this through the Y connector eyelets and the catheter was sutured into place in this manner. A new antibiotic disc was placed at the exit site and I was not able to see any of the catheter cuff extruding from the exit site. Therefore, I felt we could leave this in this position without further manipulation of the catheter. Following this a new sterile dressing was applied and we then reaspirated and flushed with 5 cc of saline. Good dark was was able to be aspirated even after suturing the catheter in place. I have discussed the situation with Dr. Zafar. We will have the dialysis nurse tried to use the catheter the day and if it is not able to be successfully used I can try to replace it in the OR with a different catheter later today. Implants none Estimated Blood Loss 10 Urine Output 0 Drains No Packing No Pathology None sent Complications No immediate complications Condition Stable Disposition ICU
[2021-10-27] MEDS: hetaSTARCH 6%/NACL 500 ML 250 ML IV CONT ×2 (17:37→23:34)
[2021-10-27] MEDS: DEXTROSE 50% 25 GM/50 ML SYRINGE IV PUSH ×3 (17:41→23:05)
[2021-10-27 18:07] LABS: Glucose Point of Care 44 mg/dl (65-105)
[2021-10-27 18:07] LABS: Glucose Point of Care 88 mg/dl (65-105)
[2021-10-27 18:07] LABS: Glucose Point of Care 47 mg/dl (65-105)
--- NOTE | 2021-10-27 18:09 | PC.NURSE ---
Spoke with Dr. Zafar regarding patient's drop in BP. SBP in 80's with MAP of 60's. New order for 500ml Hetastarch
[2021-10-27 19:57] LABS: Glucose Point of Care 56 mg/dl (65-105)
[2021-10-27 20:26] LABS: Glucose Point of Care 95 mg/dl (65-105)
[2021-10-27] MEDS: ROSUVASTATIN 10 MG TABLET PO (20:50)
[2021-10-27] MEDS: HYDROcodone/acetaminophen (*CRX) 10-325 MG TABLET 1 TAB PO (21:57)
[2021-10-27 23:13] LABS: Glucose Point of Care 52 mg/dl (65-105)
[2021-10-27 23:47] LABS: Glucose Point of Care 63 mg/dl (65-105)
[2021-10-28] VITALS (47 sets, daily range): BP systolic 90–130; BP diastolic 49–75; PULSE 52–68; RESP 12–20; TEMP 35.9–36.8; O2SAT 92–99; BMI 37.7
[2021-10-28 00:15] LABS: Glucose Point of Care 53 mg/dl (65-105)
[2021-10-28] MEDS: DEXTROSE 10% 1,000 ML 25 ML IV CONT (01:15)
[2021-10-28] MEDS: DEXTROSE 50% 25 GM/50 ML SYRINGE IV PUSH ×4 (01:50→23:34)
[2021-10-28] MEDS: IPRATROPIUM BR 0.02% INH SOLN 0.5 MG/2.5 ML VIAL INHALATION ×4 (02:02→20:47)
[2021-10-28] MEDS: ALBUTEROL SULFATE NEB 2.5 MG/0.5 ML INH INHALATION ×4 (02:02→20:47)
[2021-10-28 02:14] LABS: Glucose Point of Care 87 mg/dl (65-105)
[2021-10-28 02:14] LABS: Glucose Point of Care 55 mg/dl (65-105)
[2021-10-28 04:28] LABS: Basophils Percent Auto 0.2 % (0.2-1.2); Eosinophils Absolute Auto 0.4 K/mm3 (0-0.3); Eosinophils Percent Auto 3.6 % (0-4.4); Hematocrit 30.3 % (42.0-52.0); Hemoglobin 9.6 g/dL (14.0-18.0); Immature Granulocyte Absolute 0.08 K/mm3 (0.00-0.031); Immature Granulocyte Percent A 0.7 % (0-0.5); Lymphocytes Absolute Auto 0.85 K/mm3 (0.9-3.2); Lymphocytes Percent Auto 7.6 % (18.3-44.2); Mean Corpuscular HGB Conc 31.7 g/dl (32-36); Mean Corpuscular Hemoglobin 30.9 pg (26-34); Mean Corpuscular Volume 97.4 fl (80-100); Mean Platelet Volume 10.9 fl (7.4-10.4); Monocytes Absolute Auto 1.3 K/mm3 (0.1-0.6); Monocytes Percent Auto 11.8 % (2.6-8.5); Neutrophils Absolute Auto 8.6 K/mm3 (1.3-6.7); Neutrophils Percent Auto 76.1 % (45.5-73.1); Platelet Count Result 281 k/mm3 (150-375); Red Blood Count 3.11 M/mm3 (4.6-6.20); Red Cell Distribution Width 18.6 % (11.5-14.5); White Blood Count 11.2 K/mm3 (4.5-10.0)
[2021-10-28 04:39] LABS: Alanine Aminotransferase 15 U/L (4-50); Albumin Level 2.3 g/dL (3.5-5.1); Alkaline Phosphatase 135 U/L (38-126); Anion Gap 6 mmol/L (8-16); Aspartate Amino Transferase 52 U/L (17-59); Bilirubin,Total 0.9 mg/dL (0.2-1.3); Blood Urea Nitrogen 70 mg/dL (9-20); Calcium 7.5 mg/dL (8.4-10.2); Carbon Dioxide 33 mmol/L (22-30); Chloride 96 mmol/L (98-107); Estimated CRCL calculation 15 ml/min; Estimated Glomerular Filt Rate 10; Glucose 59 mg/dL (65-110); INR 1.5; Potassium 3.5 mmol/L (3.4-5.0); Prothrombin Time 17.5 Seconds (11.1-14.7); Sodium 135 mmol/L (137-145)
[2021-10-28] MEDS: MIDODRINE HCL 10 MG TABLET FEED TUBE ×3 (06:13→21:14)
[2021-10-28 06:19] LABS: Glucose Point of Care 65 mg/dl (65-105)
[2021-10-28 06:19] LABS: Glucose Point of Care 69 mg/dl (65-105)
[2021-10-28 06:43] LABS: Glucose Point of Care 99 mg/dl (65-105)
[2021-10-28 08:34] LABS: Lactic Acid Reflex 1.3 mmol/L (0.7-2.1)
--- NOTE | 2021-10-28 08:34 | PC.NURSE ---
Hemodialysis nurse at bedside.
[2021-10-28 09:58] LABS: Glucose Point of Care 79 mg/dl (65-105)
[2021-10-28] MEDS: EPOETIN ALFA-EPBX 10,000 UNITS/ML VIAL 10000 UNITS IV PUSH (10:05)
--- NOTE | 2021-10-28 10:10 | P.PNNP_ITS ---
Progress Note: A&P Assessment and Plan (1) End-stage renal disease (ESRD): Code(s): N18.6 - End stage renal disease Status: Acute Assessment and Plan: * peritoneal dialysis treatment yesterday during the day and evening * HD today more so for clearance of uremic toxins * using citrate bath given history of HIT * follow electrolytes and volume status (2) Acute respiratory failure with hypoxia: Code(s): J96.01 - Acute respiratory failure with hypoxia Status: Acute Assessment and Plan: * continue ventilator support * s/p tracheostomy * complicated by pneumonia - on antibiotics * will likely need LTACH for ongoing ventilator weaning (3) Hyponatremia: Code(s): E87.1 - Hypo-osmolality and hyponatremia Status: Acute Assessment and Plan: * relatively stable at this time * will likely correct more with hemodialysis * follow trend (4) Hypotension: Code(s): I95.9 - Hypotension, unspecified Status: Acute Assessment and Plan: * off pressor support * follow trend of hemodynamics * on midodrine therapy (5) Anemia: Code(s): D64.9 - Anemia, unspecified Status: Chronic Assessment and Plan: * due to ESRD and possibly acute illness * on Epogen * follow trend of H/H (6) Diabetes: Code(s): E11.9 - Type 2 diabetes mellitus without complications Status: Chronic Assessment and Plan: * follow accucheks * issues with hypoglycemia noted -- on dextrose IVFs * continue to follow Discussed case with Dr. Zafar. Will continue to follow. Subjective Date/time seen: 10/28/21 10:10 Tolerated dialysis yesterday as well as dialysis currently (seen on HD at 9:45AM); awake and able to nod head to simple questions; issues with hypotension overnight requiring hespan and as well as hypoglycemia requiring D50 and subsequent dextrose IV fluids; no apparent distress at time. Exam Narrative: General: WD/WN male trached and on mechanical ventilation Heart: normal S1 and S2; no rub or gallop Lungs: coarse breath sounds; decreased at bases Abdomen: obese but soft, nontender, nondistended, positive bowel sounds; PD catheter in place Extremities: trace - 1+ chronic bilateral edema Skin: chronic skin changes noted in LEs Objective Data Vital Signs Vital Signs: Vital Signs Temp Pulse Resp BP Pulse Ox 10/28/21 10:01 64 100/60 10/28/21 10:00 65 18 107/58 L 95 10/28/21 09:45 63 106/59 L 10/28/21 09:30 64 110/54 L 10/28/21 09:15 61 100/51 L 10/28/21 09:08 57 L 96 10/28/21 08:50 57 L 99/57 L 10/28/21 08:45 36.8 C 61 16 110/56 L 96 10/28/21 08:43 58 L 96 10/28/21 08:37 56 L 12 10/28/21 08:00 36.4 C L 59 L 19 110/58 L 99 10/28/21 06:00 59 L 18 109/59 L 96 10/28/21 05:09 60 96 10/28/21 05:00 59 L 14 103/53 L 95 10/28/21 04:00 36.4 C L 61 18 115/60 95 10/28/21 03:00 56 L 15 90/50 L 96 10/28/21 02:30 117/56 L 10/28/21 02:12 53 L 18 10/28/21 02:02 59 L 20 10/28/21 02:01 55 L 96 10/28/21 02:00 52 L 14 91/49 L 96 10/28/21 01:30 54 L 14 93/60 L 96 10/28/21 00:00 36.2 C L 53 L 14 94/56 L 96 10/27/21 23:
--- NOTE | 2021-10-28 10:10 | PM.PNNEP ---
Progress Note: A&P Assessment and Plan (1) End-stage renal disease (ESRD): Code(s): N18.6 - End stage renal disease Status: Acute Assessment and Plan: peritoneal dialysis treatment yesterday during the day and evening HD today more so for clearance of uremic toxins using citrate bath given history of HIT follow electrolytes and volume status (2) Acute respiratory failure with hypoxia: Code(s): J96.01 - Acute respiratory failure with hypoxia Status: Acute Assessment and Plan: continue ventilator support s/p tracheostomy complicated by pneumonia - on antibiotics will likely need LTACH for ongoing ventilator weaning (3) Hyponatremia: Code(s): E87.1 - Hypo-osmolality and hyponatremia Status: Acute Assessment and Plan: relatively stable at this time will likely correct more with hemodialysis follow trend (4) Hypotension: Code(s): I95.9 - Hypotension, unspecified Status: Acute Assessment and Plan: off pressor support follow trend of hemodynamics on midodrine therapy (5) Anemia: Code(s): D64.9 - Anemia, unspecified Status: Chronic Assessment and Plan: due to ESRD and possibly acute illness on Epogen follow trend of H/H (6) Diabetes: Code(s): E11.9 - Type 2 diabetes mellitus without complications Status: Chronic Assessment and Plan: follow accucheks issues with hypoglycemia noted -- on dextrose IVFs continue to follow Discussed case with Dr. Zafar. Will continue to follow. Subjective Date/time seen: 10/28/21 10:10 Tolerated dialysis yesterday as well as dialysis currently (seen on HD at 9:45AM); awake and able to nod head to simple questions; issues with hypotension overnight requiring hespan and as well as hypoglycemia requiring D50 and subsequent dextrose IV fluids; no apparent distress at time. Exam Narrative: General: WD/WN male trached and on mechanical ventilation Heart: normal S1 and S2; no rub or gallop Lungs: coarse breath sounds; decreased at bases Abdomen: obese but soft, nontender, nondistended, positive bowel sounds; PD catheter in place Extremities: trace - 1+ chronic bilateral edema Skin: chronic skin changes noted in LEs Objective Data Vital Signs Vital Signs: Vital Signs Temp Pulse Resp BP Pulse Ox 10/28/21 10:01 64 100/60 10/28/21 10:00 65 18 107/58 L 95 10/28/21 09:45 63 106/59 L 10/28/21 09:30 64 110/54 L 10/28/21 09:15 61 100/51 L 10/28/21 09:08 57 L 96 10/28/21 08:50 57 L 99/57 L 10/28/21 08:45 36.8 C 61 16 110/56 L 96 10/28/21 08:43 58 L 96 10/28/21 08:37 56 L 12 10/28/21 08:00 36.4 C L 59 L 19 110/58 L 99 10/28/21 06:00 59 L 18 109/59 L 96 10/28/21 05:09 60 96 10/28/21 05:00 59 L 14 103/53 L 95 10/28/21 04:00 36.4 C L 61 18 115/60 95 10/28/21 03:00 56 L 15 90/50 L 96 10/28/21 02:30 117/56 L 10/28/21 02:12 53 L 18 10/28/21 02:02 59 L 20 10/28/21 02:01 55 L 96 10/28/21 02:00 52 L 14 91/49 L 96 10/28/21 01:30 54 L 14 93/60 L 96 10/28/21 00:00 36.2 C L 53 L 14 94/56 L 96 10/27/21 23:45 94/51 L 10/27/21 23:30 53 L 76/45 L 10/27/21 23:05 53 L 98 10/27/21 23:00 56 L 12 72/40 L 97 10/27/21 22:00 60 123/66 97 10/27/21 20:20 59 L 14 10/27/21 20:10 59 L 13 97 10/27/21 20:00 35.8 C L 69 14 97/53 L 98 10/27/21 18:30 109/57 L 10/27/21 18:00 60 14 76/50 L 99 10/27/21 16:58 70 97 10/27/21 16:00 36.4 C L 62 15 85/48 L 98 10/27/21 14:11 66 20 10/27/21 14:03 69 97 10/27/21 14:00 66 20 101/58 L 97 10/27/21 12:04 35.7 C L 69 18 109/71 95 10/27/21 12:03 64 99/63 L 10/27/21 12:00 37.0 C 68 19 109/71 100 10/27/21 11:35 68 96/57 L 10/27/21 11:16 67 99/55 L Intake/Output In
[2021-10-28 10:25] LABS: Hepatitis B Surface Antigen Negative (Negative)
--- NOTE | 2021-10-28 10:40 | WPDINTPN ---
Progress Note: A&P Assessment and Plan (1) Acute respiratory failure with hypoxia: Code(s): J96.01 - Acute respiratory failure with hypoxia Status: Acute Assessment and Plan: Acute Respiratory failure secondary to cardiac arrest, pneumonia, pulmonary edema, left pleural effusion. Intubated on 10/04/2021 during code blue -chest x-ray and ABGs reviewed -currently on ASV mode with 35% FiO2 and 8 of PEEP. Placed patient on pressure support ventilation 04/08, Tolerating, will switch to ASV when patient tires out -off all sedation since 10/09 -10/07/2021: Sputum culture growing E coli, sensitive to cefepime, Zosyn, imipenem and gentamicin. - 10/11 -repeat Sputum culture still growing E coli ESBL which is sensitive to imipenem. -10/14 started on imipenem -10/27: repeat sputum cultures growing E coli and Staph aureus, continue imipenem and added vancomycin on 10/28/2021 -patient not tolerating pressure support ventilation as he becomes tachypneic and diaphoretic -tracheostomy done on 10/17/2021. 10/09/2021: CT chest, abdomen, pelvis without contrast 1. Small right and moderate left pleural effusions with collapse of the bilateral lower lobes with additional dependent compressive atelectasis. 2. Cardiomegaly. 3. Nonspecific 2.2 x 1.4 cm anterior mediastinal mass with differential including enlarged lymph node or thymoma. 4. Small volume of ascites with peritoneal dialysis catheter. (2) End-stage renal disease on peritoneal dialysis: Onset Date: Unknown Code(s): N18.6 - End stage renal disease; Z99.2 - Dependence on renal dialysis Status: Acute Assessment and Plan: patient is being followed by Nephrology and is currently peritoneal dialysis. -discussed with nephrology. Patient will need a PEG tube, Dr. Combs plans to transition him to hemodialysis. - surgery has been consulted for tunneled dialysis catheter placement, unable to access left subclavian on 10/20. -10/22/2021: Right-sided tunneled IJ dialysis catheter placed by surgery -hemodialysis this was started on 10/23/2021, they were able to remove 11 her mL of fluid, the catheter clotted and that they have put cath flow in it. -10/24/2021: Hemodialysis was unsuccessful, questionable kinking of the catheter -discussed with Nephrology, patient currently on peritoneal dialysis as his hemodialysis catheter is malfunctioning. -10/27/2021: Dr. Quintana did pulled by the HD catheter 3 cm. Hemodialysis started, the dialysis not had to pull the dialysis catheter with some tension and started functioning. -10/28: HD catheter working fine, discussed with Nephrology, recommended leaving the peritoneal dialysis catheter in place, he stated that LTAC normally take patients with peritoneal dialysis catheter and tunneled HD catheters. (3) Cardiac arrest: Code(s): I46.9 - Cardiac arrest, cause unspecified Status: Acute Assessment and Plan: Its possible patient's cardiac arrest secondary to junctional bradycardia or slow AFib Troponins, although mildly elevated in presence of end-stage renal disease, remained flat. EKG on admission showed AFib/ junctional bradycardia with heart rate in 40s -off dopamine 10/12 - off Levophed 10/18 - he may need transvenous pacemaker and I have discussed with Cardiology - cardiology is following -repeat head CT on 10/09: No acute intracranial findings or interval change, mild atrophy and microangiopathy. -patient opens his eyes to name and follows simple commands in all extremities 10/06/2021 Echo: - mild LVH; moderate-severe LV systolic dysfunction, ejection fraction about 30-35% - Moderate-severe aortic stenosis - Moderate pulmonary hypertension, RVSP 54 mmHg (4) Persistent atrial fibrillation: Code(s): I48.19 - Other persistent atrial fibrillation Status: Acute Assessment and Plan: currently in junctional bradycardia/sinus Jacinto- see above - Eliquis resumed on 10/24/2021 after discussing
[2021-10-28 10:43] LABS: Hepatitis B Surface Anti Res Negative
[2021-10-28] MEDS: allopurinoL 100 MG TABLET PO (11:55)
[2021-10-28] MEDS: CALCIUM ACETATE 667 MG TABLET 1334 MG FEED TUBE (11:56)
[2021-10-28] MEDS: BRIMONIDINE TARTRATE 0.2% OP SOLN 5 ML BTL 1 DROP EACH EYE ×2 (11:56→21:18)
[2021-10-28] MEDS: MUPIROCIN 2% OINT 22 GM TUBE 1 APPLIC TOPICAL (11:57)
[2021-10-28] MEDS: PANTOPRAZOLE SODIUM IV 40 MG VIAL IV PUSH (11:57)
[2021-10-28] MEDS: DORZOLAMIDE/TIMOLOL OPHTH SOL 10 ML BOTTLE 1 DROP EACH EYE ×2 (11:57→21:18)
[2021-10-28] MEDS: SOD HYPOCHLORITE 1/4 STRENGTH 473 ML 1 APPLIC TOPICAL (11:58)
[2021-10-28] MEDS: SILVER SULFADIAZINE 1% CR 50 GM JAR (*BKC) 1 APPLIC TOPICAL (11:58)
--- NOTE | 2021-10-28 12:05 | PCNFU ---
Nutrition Follow-Up Complete: Inadequate Oral Intake as related to mechanical ventilation as evidenced by NPO. Goal: Meet estimated nutritional needs Patient is progressing towards goal. We will continue current goal. Pt current nutrition is Nepro at 60 ml/hr over 22 hours. Last recorded weight is 119.3 kg, down from 122.5 kg on admit. Bowel Motility: +Bm reported 10/27 Labs Reviewed: Glu 59, BUN 70, GFR 10, Na 135, Hgb 9.6,Hct 30.3 Meds Noted:PhosLo, Atrovent, Midodrine,Protonix, Crestor, Retacrit, Zyloprim, Miralax, NovoLog, Lantus, Dextrose 10%, Cymbalta, Drisdol Skin: left lower leg-venous status, right foot-DM ulcer Additional Notes: Patient is current with Trach. Plans for Dobbhoff tube today for LTAC placement. Patient remains on tube feedings of Nepro at 60 ml/hr over 22 hours. Dialysis today. Patient started patient on D10 at 25 ml/hr for hypoglycemia. Licensed Funeral Director called regarding hypoglycemia event. Nepro at 60 ml/hr is providing 2178 kcals/87 gms protein/960 ml water. Free water flush 30 ml q 4 hours. Tube feeding is meeting 92% caloric needs and 96% of protein needs. Agree with diet orders. Will be monitoring in ICU rounds and reassessing every Wednesday and Wednesday.
[2021-10-28] MEDS: ALBUMIN HUMAN 25% 25 GM/100 ML 100 ML IVPB ×4 (12:08→21:31)
[2021-10-28] MEDS: ACETAMINOPHEN ELIXIR 325 MG/10.15 ML UDC 650 MG PO ×2 (16:25→22:03)
--- NOTE | 2021-10-28 16:27 | P.PNIM_ITS ---
Progress Note: A&P Assessment and Plan (1) Acute respiratory failure with hypoxia: Code(s): J96.01 - Acute respiratory failure with hypoxia Status: Acute Assessment and Plan: Acute Respiratory failure secondary to cardiac arrest, pneumonia, pulmonary edema, left pleural effusion. Intubated on 10/04/2021 during code blue -chest x-ray and ABGs reviewed -currently on ASV mode with 35% FiO2 and 8 of PEEP. Placed patient on pressure support ventilation 04/08, Tolerating, will switch to ASV when patient tires out -off all sedation since 10/09 -10/07/2021: Sputum culture growing E coli, sensitive to cefepime, Zosyn, imipenem and gentamicin. - 10/11 -repeat Sputum culture still growing E coli ESBL which is sensitive to imipenem. -10/14 started on imipenem -10/27: repeat sputum cultures growing E coli and Staph aureus, continue imipenem and added vancomycin on 10/28/2021 -patient not tolerating pressure support ventilation as he becomes tachypneic and diaphoretic -tracheostomy done on 10/17/2021. 10/09/2021: CT chest, abdomen, pelvis without contrast 1. Small right and moderate left pleural effusions with collapse of the bilateral lower lobes with additional dependent compressive atelectasis. 2. Cardiomegaly. 3. Nonspecific 2.2 x 1.4 cm anterior mediastinal mass with differential including enlarged lymph node or thymoma. 4. Small volume of ascites with peritoneal dialysis catheter. (2) End-stage renal disease on peritoneal dialysis: Onset Date: Unknown Code(s): N18.6 - End stage renal disease; Z99.2 - Dependence on renal dialysis Status: Acute Assessment and Plan: patient is being followed by Nephrology and is currently peritoneal dialysis. -discussed with nephrology. Patient will need a PEG tube, Dr. Combs plans to transition him to hemodialysis. - surgery has been consulted for tunneled dialysis catheter placement, unable to access left subclavian on 10/20. -10/22/2021: Right-sided tunneled IJ dialysis catheter placed by surgery -hemodialysis this was started on 10/23/2021, they were able to remove 11 her mL of fluid, the catheter clotted and that they have put cath flow in it. -10/24/2021: Hemodialysis was unsuccessful, questionable kinking of the catheter -discussed with Nephrology, patient currently on peritoneal dialysis as his hemodialysis catheter is malfunctioning. -10/27/2021: Dr. Quintana did pulled by the HD catheter 3 cm. Hemodialysis started, the dialysis not had to pull the dialysis catheter with some tension and started functioning. -10/28: HD catheter working fine, discussed with Nephrology, recommended leaving the peritoneal dialysis catheter in place, he stated that LTAC normally take patients with peritoneal dialysis catheter and tunneled HD catheters. (3) Cardiac arrest: Code(s): I46.9 - Cardiac arrest, cause unspecified Status: Acute Assessment and Plan: Its possible patient's cardiac arrest secondary to junctional bradycardia or slow AFib Troponins, although mildly elevated in presence of end-stage renal disease, remained flat. EKG on admission showed AFib/ junctional bradycardia with heart rate in 40s -off dopamine 10/12 - off Levophed 10/18 - he may need transvenous pacemaker and I have discussed with Cardiology - cardiology is following -repeat head CT on 10/09: No acute intracranial findings or interval change, mild atrophy and microangiopathy. -patient opens his eyes to name and follows simple commands in all extremities 10/06/2021 Echo: - mild LVH; moderate-severe LV systolic dysfunction, ejection fraction about 30- 35% - Moderate-severe aortic stenosis
[2021-10-28 18:25] LABS: Glucose Point of Care 97 mg/dl (65-105)
[2021-10-28] MEDS: ONDANSETRON INJ 4 MG/2 ML VIAL (18:56)
[2021-10-28] MEDS: ROSUVASTATIN 10 MG TABLET PO (21:14)
[2021-10-28] MEDS: diphenhydrAMINE HCL ELIXIR 12.5 MG/5 ML UDC 50 MG PO (22:12)
[2021-10-28 23:38] LABS: Glucose Point of Care 66 mg/dl (65-105)
[2021-10-28 23:54] LABS: Glucose Point of Care 72 mg/dl (65-105)
[2021-10-29] VITALS (42 sets, daily range): BP systolic 90–134; BP diastolic 52–72; PULSE 49–92; RESP 12–24; TEMP 36–36.9; O2SAT 83–98
[2021-10-29] MEDS: ALBUTEROL SULFATE NEB 2.5 MG/0.5 ML INH INHALATION ×4 (01:59→20:19)
[2021-10-29] MEDS: IPRATROPIUM BR 0.02% INH SOLN 0.5 MG/2.5 ML VIAL INHALATION ×4 (01:59→20:19)
[2021-10-29 02:56] LABS: Glucose Point of Care 65 mg/dl (65-105)
[2021-10-29 04:43] LABS: Basophils Percent Auto 0.2 % (0.2-1.2); Eosinophils Absolute Auto 0.4 K/mm3 (0-0.3); Eosinophils Percent Auto 3.1 % (0-4.4); Hematocrit 28.8 % (42.0-52.0); Hemoglobin 9.1 g/dL (14.0-18.0); Immature Granulocyte Absolute 0.07 K/mm3 (0.00-0.031); Immature Granulocyte Percent A 0.6 % (0-0.5); Lymphocytes Absolute Auto 0.96 K/mm3 (0.9-3.2); Lymphocytes Percent Auto 8.5 % (18.3-44.2); Mean Corpuscular HGB Conc 31.6 g/dl (32-36); Mean Corpuscular Hemoglobin 30.8 pg (26-34); Mean Corpuscular Volume 97.6 fl (80-100); Mean Platelet Volume 11.5 fl (7.4-10.4); Monocytes Absolute Auto 1.3 K/mm3 (0.1-0.6); Neutrophils Absolute Auto 8.7 K/mm3 (1.3-6.7); Neutrophils Percent Auto 76.6 % (45.5-73.1); Platelet Count Result 270 k/mm3 (150-375); Red Blood Count 2.95 M/mm3 (4.6-6.20); Red Cell Distribution Width 18.6 % (11.5-14.5); White Blood Count 11.3 K/mm3 (4.5-10.0)
[2021-10-29 05:01] LABS: Alanine Aminotransferase 10 U/L (4-50); Alkaline Phosphatase 102 U/L (38-126); Anion Gap 6 mmol/L (8-16); Aspartate Amino Transferase 47 U/L (17-59); Bilirubin,Total 1.2 mg/dL (0.2-1.3); Blood Urea Nitrogen 51 mg/dL (9-20); Calcium 7.7 mg/dL (8.4-10.2); Carbon Dioxide 33 mmol/L (22-30); Chloride 95 mmol/L (98-107); Estimated CRCL calculation 19 ml/min; Estimated Glomerular Filt Rate 13; Glucose 43 mg/dL (65-110); Magnesium 1.9 mg/dL (1.6-2.3); Phosphorus 3.8 mg/dL (2.5-4.5); Potassium 3.9 mmol/L (3.4-5.0); Sodium 134 mmol/L (137-145)
[2021-10-29] MEDS: GLUCAGON FOR INJ 1 MG VIAL IM (05:12)
[2021-10-29 05:18] LABS: Alveolar/Arterial O2 Gradient 113.4 mmHg; Base Excess ABG 2.7 mEq/l (+/-2.0); Fractional Inspired Oxygen 35 %; HCO3 ABG 25.5 mEq/l (22.0-26.0); Methemoglobin ABG 0.1 %THb (0-1.5); Oxyhemoglobin 97.4 % THb (90.0-100.0); PCO2 ABG 32.8 mmHg (35.0-45.0); Reduced Hemoglobin 2.5 %THb (0-5.0); Total Hemoglobin 10.1 g/dL (12.0-18.0)
[2021-10-29 05:20] LABS: Device VENTILATOR; Modified Allen's Test Pass; Site Drawn LEFT RADIAL; pH ABG 7.509 (7.350-7.450)
[2021-10-29 05:21] LABS: Arterial Blood Gas PEEP 5 cmH2O; Arterial Blood Gas Vent Mode ASV
[2021-10-29] MEDS: MIDODRINE HCL 10 MG TABLET FEED TUBE ×3 (05:24→20:35)
[2021-10-29] MEDS: GLUCOSE ORAL GEL 15 GM OF GLUCSE IN 37.5 GM TUBE PO (05:35)
[2021-10-29 05:57] LABS: Glucose Point of Care 61 mg/dl (65-105)
[2021-10-29 05:57] LABS: Glucose Point of Care 75 mg/dl (65-105)
[2021-10-29 06:25] LABS: Glucose Point of Care 102 mg/dl (65-105)
[2021-10-29 07:44] LABS: Glucose Point of Care 94 mg/dl (65-105)
[2021-10-29 08:19] LABS: Lipase 15 U/L (23-300)
[2021-10-29] MEDS: DEXTROSE 10% 1,000 ML 40 ML IV CONT (09:15)
[2021-10-29] MEDS: ONDANSETRON INJ 4 MG/2 ML VIAL IV PUSH ×2 (09:36→20:54)
[2021-10-29] MEDS: BRIMONIDINE TARTRATE 0.2% OP SOLN 5 ML BTL 1 DROP EACH EYE ×2 (09:38→20:36)
[2021-10-29] MEDS: DORZOLAMIDE/TIMOLOL OPHTH SOL 10 ML BOTTLE 1 DROP EACH EYE ×2 (09:38→20:36)
[2021-10-29] MEDS: allopurinoL 100 MG TABLET PO (09:38)
[2021-10-29] MEDS: PANTOPRAZOLE SODIUM IV 40 MG VIAL IV PUSH (09:39)
[2021-10-29] MEDS: MUPIROCIN 2% OINT 22 GM TUBE 1 APPLIC TOPICAL (09:39)
[2021-10-29] MEDS: SOD HYPOCHLORITE 1/4 STRENGTH 473 ML 1 APPLIC TOPICAL (09:39)
[2021-10-29] MEDS: METOCLOPRAMIDE HCL 10 MG/10 ML SOLN UDC PO ×4 (09:39→23:39)
[2021-10-29] MEDS: SILVER SULFADIAZINE 1% CR 50 GM JAR (*BKC) 1 APPLIC TOPICAL (09:42)
[2021-10-29] MEDS: DEXTROSE 50% 25 GM/50 ML SYRINGE IV PUSH ×3 (09:50→17:37)
[2021-10-29 10:14] LABS: Glucose Point of Care 60 mg/dl (65-105)
[2021-10-29 10:14] LABS: Glucose Point of Care 64 mg/dl (65-105)
[2021-10-29 10:53] LABS: Glucose Point of Care 81 mg/dl (65-105)
[2021-10-29 11:39] LABS: Appearance Peritoneal Fluid Clear (Clear); Color Peritoneal Fluid Yellow (Colorless); Nucleated Cells Peritoneal Flu 192 /uL (0-500); RBC Peritoneal Fluid 8 /uL (0-100000); Source Peritoneal Fluid Peritoneal Fluid
[2021-10-29 11:44] LABS: Lymphocytes Peritoneal Fluid 9 %; Monocytes Peritoneal Fluid 85 %; Neutrophils Peritoneal Fluid 4 % (0-25)
[2021-10-29 11:45] LABS: Glucose Point of Care 73 mg/dl (65-105)
[2021-10-29 11:45] LABS: Mesothelial Cells Peritoneal Fluid 2 %
--- NOTE | 2021-10-29 11:47 | PCFNICU ---
ICU Rounding Note: Pt current nutrition is Nepro at 60 ml/hr over 22 hours. Last recorded weight is 120 kg-stable Bowel Motility:+Bm reported 10/27 Labs Reviewed: Glu 43, GFR 13, BUN 51, Lipase 15, Hgb 9.1,Hct 28.8, Na 134, Alb 3.0 Meds Noted:PhosLo, Atrovent, Midodrine,Protonix, Crestor, Retacrit, Zyloprim, Miralax, NovoLog, Lantus, Dextrose 10%, Cymbalta, Drisdol, Reglan Skin: left lower leg-venous status, right foot-DM ulcer Additional Notes: Patient current with Trach. Patient had Glu 43, is being treated with Glutose 15 and Dextrose 10%. Patient had been vomiting, tube feeding has been stopped at this time. Patient getting CT scan today. Dialysis treatment competed 10/28. Following daily in ICU rounds. Will be reassessing every Wednesday and Wednesday.
--- NOTE | 2021-10-29 12:44 | WPDINTPN ---
Progress Note: A&P Assessment and Plan (1) Acute respiratory failure with hypoxia: Code(s): J96.01 - Acute respiratory failure with hypoxia Status: Acute Assessment and Plan: Acute Respiratory failure secondary to cardiac arrest, pneumonia, pulmonary edema, left pleural effusion. Intubated on 10/04/2021 during code blue -chest x-ray and ABGs reviewed -currently on ASV mode with 35% FiO2 and 8 of PEEP. Changed minute ventilation to 80% -off all sedation since 10/09 -10/07/2021: Sputum culture growing E coli, sensitive to cefepime, Zosyn, imipenem and gentamicin. - 10/11 -repeat Sputum culture still growing E coli ESBL which is sensitive to imipenem. -10/14 started on imipenem -10/27: repeat sputum cultures growing E coli and MRSA, continue imipenem and added vancomycin on 10/28/2021 -patient not tolerating pressure support ventilation as he becomes tachypneic and diaphoretic -tracheostomy done on 10/17/2021. 10/09/2021: CT chest, abdomen, pelvis without contrast 1. Small right and moderate left pleural effusions with collapse of the bilateral lower lobes with additional dependent compressive atelectasis. 2. Cardiomegaly. 3. Nonspecific 2.2 x 1.4 cm anterior mediastinal mass with differential including enlarged lymph node or thymoma. 4. Small volume of ascites with peritoneal dialysis catheter. (2) End-stage renal disease on peritoneal dialysis: Onset Date: Unknown Code(s): N18.6 - End stage renal disease; Z99.2 - Dependence on renal dialysis Status: Acute Assessment and Plan: patient is being followed by Nephrology -patient was on PD but is now being transition to hemodialysis. - surgery has been consulted for tunneled dialysis catheter placement, unable to access left subclavian on 10/20. -10/22/2021: Right-sided tunneled IJ dialysis catheter placed by surgery -hemodialysis this was started on 10/23/2021, they were able to remove 11 her mL of fluid, the catheter clotted and that they have put cath flow in it. -10/24/2021: Hemodialysis was unsuccessful, questionable kinking of the catheter -discussed with Nephrology, patient currently on peritoneal dialysis as his hemodialysis catheter is malfunctioning. -10/27/2021: Dr. Quintana did pulled by the HD catheter 3 cm. Hemodialysis started, the dialysis not had to pull the dialysis catheter with some tension and started functioning. -10/28: HD catheter working fine, discussed with Nephrology, recommended leaving the peritoneal dialysis catheter in place, he stated that LTAC normally take patients with peritoneal dialysis catheter and tunneled HD catheters. (3) Cardiac arrest: Code(s): I46.9 - Cardiac arrest, cause unspecified Status: Acute Assessment and Plan: Its possible patient's cardiac arrest secondary to junctional bradycardia or slow AFib Troponins, although mildly elevated in presence of end-stage renal disease, remained flat. EKG on admission showed AFib/ junctional bradycardia with heart rate in 40s -off dopamine 10/12 - off Levophed 10/18 - he may need pacemaker in future - cardiology is following -repeat head CT on 10/09: No acute intracranial findings or interval change, mild atrophy and microangiopathy. -patient opens his eyes to name and follows simple commands in all extremities 10/06/2021 Echo: - mild LVH; moderate-severe LV systolic dysfunction, ejection fraction about 30-35% - Moderate-severe aortic stenosis - Moderate pulmonary hypertension, RVSP 54 mmHg (4) Persistent atrial fibrillation: Code(s): I48.19 - Other persistent atrial fibrillation Status: Acute Assessment and Plan: currently in junctional bradycardia/sinus Jacinto- see above - Anny resumed on 10/24/[address] Bryan, e commerce project manager, who stated stated that there is a high risk of peritonitis if he places the PEG tube. He recommended checking with the LTAC that if they would take him on a Dobbhof
[2021-10-29] MEDS: GENTAMICIN SULFATE 0.1% CR 15 GM TUBE 1 APPLIC TOPICAL (16:12)
[2021-10-29] MEDS: ALTEPLASE 2 MG VIAL (CATHFLO) 4 MG INTRACATH (16:13)
[2021-10-29] MEDS: EPOETIN ALFA-EPBX 10,000 UNITS/ML VIAL 10000 UNITS IV PUSH (16:21)
--- NOTE | 2021-10-29 16:37 | P.PNNP_ITS ---
Progress Note: A&P Assessment and Plan (1) End-stage renal disease (ESRD): Code(s): N18.6 - End stage renal disease Status: Acute Assessment and Plan: * peritoneal dialysis treatment yesterday during the day and evening * HD today more so for clearance of uremic toxins * using citrate bath given history of HIT * follow electrolytes and volume status (2) Acute respiratory failure with hypoxia: Code(s): J96.01 - Acute respiratory failure with hypoxia Status: Acute Assessment and Plan: * continue ventilator support * s/p tracheostomy * complicated by pneumonia - on antibiotics * will likely need LTACH for ongoing ventilator weaning (3) Hyponatremia: Code(s): E87.1 - Hypo-osmolality and hyponatremia Status: Acute Assessment and Plan: * relatively stable at this time * will likely correct more with hemodialysis * follow trend (4) Hypotension: Code(s): I95.9 - Hypotension, unspecified Status: Acute Assessment and Plan: * off pressor support * follow trend of hemodynamics * on midodrine therapy (5) Anemia: Code(s): D64.9 - Anemia, unspecified Status: Chronic Assessment and Plan: * due to ESRD and possibly acute illness * on Epogen * follow trend of H/H (6) Diabetes: Code(s): E11.9 - Type 2 diabetes mellitus without complications Status: Chronic Assessment and Plan: * follow accucheks * issues with hypoglycemia noted -- on dextrose IVFs * continue to follow Will continue to follow. Subjective Date/time seen: 10/29/21 16:37 Tolerating hemodialysis treatment at the time of my visit (seen on HD at ~ 4:00PM); awake and alert -- stating to me that he wants to go home; and family at bedside and we discussed the situation; issues with hypoglycemia noted requiring dextrose IVFs to maintain blood sugars. Exam Narrative: General: WD/WN male trached and on mechanical ventilation Heart: normal S1 and S2; no rub or gallop Lungs: coarse breath sounds; decreased at bases Abdomen: obese but soft, nontender, nondistended, positive bowel sounds; PD catheter in place Extremities: trace - 1+ chronic bilateral edema Skin: chronic skin changes noted in LEs Objective Data Vital Signs Vital Signs: Vital Signs Temp Pulse Resp BP Pulse Ox 10/29/21 16:30 59 L 134/67 10/29/21 16:15 56 L 113/57 L 10/29/21 16:00 56 L 114/68 98 10/29/21 15:45 54 L 110/55 L 10/29/21 15:30 56 L 105/57 L 10/29/21 15:15 55 L 96/58 L 10/29/21 15:00 53 L 105/56 L 10/29/21 14:45 55 L 108/58 L 10/29/21 14:30 57 L 97/58 L 10/29/21 14:20 60 20 10/29/21 14:16 57 L 93 10/29/21 14:15 56 L 98/56 L 10/29/21 14:14 56 L 20 10/29/21 14:00 59 L 101/60 10/29/21 13:45 59 L 92/52 L 10/29/21 13:00 54 L 90/52 L 10/29/21 12:00 36.9 C 54 L 18 104/70 98 10/29/21 11:05 54 L 96 10/29/21 10:00 53 L 17 91/53 L 94 10/29/21 08:17 56 L 95 10/29/21 08:15 53 L 14 10/29/21 08:00 36.4 C 55 L 13 115/60 98 10/29/21 06:39 93 10/29/21 06:08 49 L 12 98/56 L 97 10/29/21 06:03 50 L 97 10/29/21 04:55 56 L
--- NOTE | 2021-10-29 16:37 | PM.PNNEP ---
Progress Note: A&P Assessment and Plan (1) End-stage renal disease (ESRD): Code(s): N18.6 - End stage renal disease Status: Acute Assessment and Plan: peritoneal dialysis treatment yesterday during the day and evening HD today more so for clearance of uremic toxins using citrate bath given history of HIT follow electrolytes and volume status (2) Acute respiratory failure with hypoxia: Code(s): J96.01 - Acute respiratory failure with hypoxia Status: Acute Assessment and Plan: continue ventilator support s/p tracheostomy complicated by pneumonia - on antibiotics will likely need LTACH for ongoing ventilator weaning (3) Hyponatremia: Code(s): E87.1 - Hypo-osmolality and hyponatremia Status: Acute Assessment and Plan: relatively stable at this time will likely correct more with hemodialysis follow trend (4) Hypotension: Code(s): I95.9 - Hypotension, unspecified Status: Acute Assessment and Plan: off pressor support follow trend of hemodynamics on midodrine therapy (5) Anemia: Code(s): D64.9 - Anemia, unspecified Status: Chronic Assessment and Plan: due to ESRD and possibly acute illness on Epogen follow trend of H/H (6) Diabetes: Code(s): E11.9 - Type 2 diabetes mellitus without complications Status: Chronic Assessment and Plan: follow accucheks issues with hypoglycemia noted -- on dextrose IVFs continue to follow Will continue to follow. Subjective Date/time seen: 10/29/21 16:37 Tolerating hemodialysis treatment at the time of my visit (seen on HD at ~ 4:00PM); awake and alert -- stating to me that he wants to go home; and family at bedside and we discussed the situation; issues with hypoglycemia noted requiring dextrose IVFs to maintain blood sugars. Exam Narrative: General: WD/WN male trached and on mechanical ventilation Heart: normal S1 and S2; no rub or gallop Lungs: coarse breath sounds; decreased at bases Abdomen: obese but soft, nontender, nondistended, positive bowel sounds; PD catheter in place Extremities: trace - 1+ chronic bilateral edema Skin: chronic skin changes noted in LEs Objective Data Vital Signs Vital Signs: Vital Signs Temp Pulse Resp BP Pulse Ox 10/29/21 16:30 59 L 134/67 10/29/21 16:15 56 L 113/57 L 10/29/21 16:00 56 L 114/68 98 10/29/21 15:45 54 L 110/55 L 10/29/21 15:30 56 L 105/57 L 10/29/21 15:15 55 L 96/58 L 10/29/21 15:00 53 L 105/56 L 10/29/21 14:45 55 L 108/58 L 10/29/21 14:30 57 L 97/58 L 10/29/21 14:20 60 20 10/29/21 14:16 57 L 93 10/29/21 14:15 56 L 98/56 L 10/29/21 14:14 56 L 20 10/29/21 14:00 59 L 101/60 10/29/21 13:45 59 L 92/52 L 10/29/21 13:00 54 L 90/52 L 10/29/21 12:00 36.9 C 54 L 18 104/70 98 10/29/21 11:05 54 L 96 10/29/21 10:00 53 L 17 91/53 L 94 10/29/21 08:17 56 L 95 10/29/21 08:15 53 L 14 10/29/21 08:00 36.4 C 55 L 13 115/60 98 10/29/21 06:39 93 10/29/21 06:08 49 L 12 98/56 L 97 10/29/21 06:03 50 L 97 10/29/21 04:55 56 L 96 10/29/21 04:00 36.4 C L 52 L 15 97/58 L 97 10/29/21 02:13 58 L 96 10/29/21 02:09 60 18 10/29/21 02:00 61 21 H 102/68 94 10/29/21 00:00 36.0 C L 65 20 129/67 98 10/28/21 23:56 97 10/28/21 23:25 63 94 10/28/21 22:00 62 17 123/71 93 10/28/21 21:00 63 20 92 10/28/21 20:53 63 94 10/28/21 20:48 60 18 10/28/21 20:00 35.9 C L 65 18 130/75 92 Intake/Output Intake/Output: Intake & Output 10/26/21 10/27/21 10/28/21 10/29/21 23:59 23:59 23:59 23:59 Intake Total 1170 1295 2519 1195 Output Total 4691 2217 18 Fhccnsk -4471 -237 8094 8862 Meds/Results Medications: Active Medications Generic Name Dose Route Start Last Admin Tra
[2021-10-29 17:33] LABS: Glucose Point of Care 63 mg/dl (65-105)
[2021-10-29] MEDS: CALCIUM GLUC 1,000 MG/NS 50 ML 1,000 MG/50 ML BAG 100 MG IVPB (17:41)
[2021-10-29 18:02] LABS: Glucose Point of Care 82 mg/dl (65-105)
[2021-10-29] MEDS: ACETAMINOPHEN ELIXIR 325 MG/10.15 ML UDC 650 MG PO (20:33)
[2021-10-29] MEDS: ROSUVASTATIN 10 MG TABLET PO (20:35)
[2021-10-29 20:54] LABS: Glucose Point of Care 84 mg/dl (65-105)
[2021-10-29 21:41] LABS: Vancomycin Random 16.7 ug/mL (10-20)
[2021-10-29 23:49] LABS: Glucose Point of Care 101 mg/dl (65-105)
[2021-10-30] VITALS (28 sets, daily range): BP systolic 95–135; BP diastolic 59–81; PULSE 56–85; RESP 14–31; TEMP 36.1–36.9; O2SAT 88–100
[2021-10-30] MEDS: IPRATROPIUM BR 0.02% INH SOLN 0.5 MG/2.5 ML VIAL INHALATION ×4 (01:56→19:46)
[2021-10-30] MEDS: ALBUTEROL SULFATE NEB 2.5 MG/0.5 ML INH INHALATION ×4 (01:56→19:46)
[2021-10-30] MEDS: LORazepam INJ (*CRX) 2 MG/ML VIAL 1 MG IV PUSH (02:25)
[2021-10-30 03:37] LABS: Glucose Point of Care 133 mg/dl (65-105)
[2021-10-30] MEDS: DEXTROSE 10% 1,000 ML 40 ML IV CONT (05:59)
[2021-10-30] MEDS: METOCLOPRAMIDE HCL 10 MG/10 ML SOLN UDC PO ×3 (06:04→17:12)
[2021-10-30] MEDS: MIDODRINE HCL 10 MG TABLET FEED TUBE ×3 (06:05→22:43)
[2021-10-30 06:07] LABS: Glucose Point of Care 131 mg/dl (65-105)
[2021-10-30 07:23] LABS: Hematocrit 31.1 % (42.0-52.0); Mean Corpuscular HGB Conc 32.2 g/dl (32-36); Mean Corpuscular Hemoglobin 30.8 pg (26-34); Mean Corpuscular Volume 95.7 fl (80-100); Mean Platelet Volume 11.9 fl (7.4-10.4); Platelet Count Result 300 k/mm3 (150-375); Red Blood Count 3.25 M/mm3 (4.6-6.20); Red Cell Distribution Width 18.6 % (11.5-14.5); White Blood Count 14.5 K/mm3 (4.5-10.0)
[2021-10-30 07:35] LABS: Alanine Aminotransferase 8 U/L (4-50); Albumin Level 3.6 g/dL (3.5-5.1); Alkaline Phosphatase 110 U/L (38-126); Anion Gap 7 mmol/L (8-16); Aspartate Amino Transferase 34 U/L (17-59); Bilirubin,Total 1.2 mg/dL (0.2-1.3); Blood Urea Nitrogen 41 mg/dL (9-20); Calcium 8.3 mg/dL (8.4-10.2); Carbon Dioxide 29 mmol/L (22-30); Chloride 95 mmol/L (98-107); Estimated CRCL calculation 23 ml/min; Estimated Glomerular Filt Rate 16; Glucose 140 mg/dL (65-110); Magnesium 2.1 mg/dL (1.6-2.3); Potassium 4.1 mmol/L (3.4-5.0); Sodium 131 mmol/L (137-145)
[2021-10-30 08:05] LABS: Glucose Point of Care 140 mg/dl (65-105)
--- NOTE | 2021-10-30 09:05 | WPDINTPN ---
Progress Note: A&P Assessment and Plan (1) Acute respiratory failure with hypoxia: Code(s): J96.01 - Acute respiratory failure with hypoxia Status: Acute Assessment and Plan: Acute Respiratory failure secondary to cardiac arrest, pneumonia, pulmonary edema, left pleural effusion. Intubated on 10/04/2021 during code blue -chest x-ray and ABGs reviewed -currently on ASV mode with 80% minute ventilation 35% FiO2 and 8 of PEEP -off all sedation since 10/09 -10/07/2021: Sputum culture growing E coli, sensitive to cefepime, Zosyn, imipenem and gentamicin. - 10/11 -repeat Sputum culture still growing E coli ESBL which is sensitive to imipenem. -10/14 started on imipenem -10/27: repeat sputum cultures growing E coli and MRSA, continue imipenem and added vancomycin on 10/28/2021 -patient not tolerating pressure support ventilation as he becomes tachypneic and diaphoretic -tracheostomy done on 10/17/2021. (2) End-stage renal disease on peritoneal dialysis: Onset Date: Unknown Code(s): N18.6 - End stage renal disease; Z99.2 - Dependence on renal dialysis Status: Acute Assessment and Plan: patient is being followed by Nephrology -patient was on PD but is now being transition to hemodialysis. - surgery has been consulted for tunneled dialysis catheter placement, unable to access left subclavian on 10/20. -10/22/2021: Right-sided tunneled IJ dialysis catheter placed by surgery -hemodialysis this was started on 10/23/2021, they were able to remove 11 her mL of fluid, the catheter clotted and that they have put cath flow in it. -10/24/2021: Hemodialysis was unsuccessful, questionable kinking of the catheter -discussed with Nephrology, patient currently on peritoneal dialysis as his hemodialysis catheter is malfunctioning. -10/27/2021: Dr. Quintana did pulled by the HD catheter 3 cm. Hemodialysis started, the dialysis not had to pull the dialysis catheter with some tension and started functioning. -10/28: HD catheter working fine, discussed with Nephrology, recommended leaving the peritoneal dialysis catheter in place, he stated that LTAC normally take patients with peritoneal dialysis catheter and tunneled HD catheters. Patient was hemodialyzed yesterday and 1 L fluid was removed (3) Cardiac arrest: Code(s): I46.9 - Cardiac arrest, cause unspecified Status: Acute Assessment and Plan: Its possible patient's cardiac arrest secondary to junctional bradycardia or slow AFib Troponins, although mildly elevated in presence of end-stage renal disease, remained flat. EKG on admission showed AFib/ junctional bradycardia with heart rate in 40s -off dopamine 10/12 - off Levophed 10/18 - he may need pacemaker in future - cardiology is following 10/06/2021 Echo: - mild LVH; moderate-severe LV systolic dysfunction, ejection fraction about 30-35% - Moderate-severe aortic stenosis - Moderate pulmonary hypertension, RVSP 54 mmHg (4) Persistent atrial fibrillation: Code(s): I48.19 - Other persistent atrial fibrillation Status: Acute Assessment and Plan: currently in junctional bradycardia/sinus Jacinto- see above - Eliquis resumed after discussing with Dr. Bryan, farm reporter, who stated stated that there is a high risk of peritonitis if he places the PEG tube. He recommended checking with the LTAC that if they would take him on a Dobbhoff tube or NG tube for feeding. (5) Bradycardia: Code(s): R00.1 - Bradycardia, unspecified Status: Chronic Assessment and Plan: see above (6) Pneumonia: Code(s): J18.9 - Pneumonia, unspecified organism Status: Acute Assessment and Plan: patient on the floor was being treated for community-acquired pneumonia antibiotics were broadened after intubation as possible patient may have aspirated 10/03/2021 Blood cultures: Negative Procalcitonin level 6.4 10/08: leukocystosis persists -10/07/2021: Sput
[2021-10-30] MEDS: allopurinoL 100 MG TABLET PO (09:14)
[2021-10-30] MEDS: PANTOPRAZOLE SODIUM IV 40 MG VIAL IV PUSH (09:14)
[2021-10-30] MEDS: DORZOLAMIDE/TIMOLOL OPHTH SOL 10 ML BOTTLE 1 DROP EACH EYE ×2 (09:15→20:28)
[2021-10-30] MEDS: BRIMONIDINE TARTRATE 0.2% OP SOLN 5 ML BTL 1 DROP EACH EYE ×2 (09:15→20:29)
[2021-10-30] MEDS: SOD HYPOCHLORITE 1/4 STRENGTH 473 ML 1 APPLIC TOPICAL (09:18)
[2021-10-30] MEDS: MUPIROCIN 2% OINT 22 GM TUBE 1 APPLIC TOPICAL (09:18)
[2021-10-30] MEDS: GENTAMICIN SULFATE 0.1% CR 15 GM TUBE 1 APPLIC TOPICAL (09:19)
[2021-10-30] MEDS: SILVER SULFADIAZINE 1% CR 50 GM JAR (*BKC) 1 APPLIC TOPICAL (09:22)
[2021-10-30 11:49] LABS: Glucose Point of Care 118 mg/dl (65-105)
--- NOTE | 2021-10-30 12:57 | PCFNICU ---
Addendum entered by Dionne Zeng RD, LDN 10/31/21 11:43: skin: left lower leg-venous status, right foot-DM ulcer. Original Note: ICU Rounding Note: Pt current nutrition is Nepro at 60 ml/hr over 22 hours. Last recorded weight is 116 kg, down from 122.5 kg on admit. Bowel Motility:+Bm reported 10/27 Labs Reviewed: Glu 140, GFR 16, BUN 41, Cr 3.7,Hct 31.1,Hgb 10.0 Meds Noted:PhosLo, Atrovent, Midodrine,Protonix, Crestor, Retacrit, Zyloprim, Miralax, NovoLog, Lantus, Dextrose 10%, Cymbalta, Drisdol, Reglan Skin: WNL Additional Notes: Patient is current with Trach and Dobbhoff tube feedings of Nepro at 60 ml/hr over 22 hours. Free water flush 30 ml q 4 hours. Plans to decrease the Dextrose 10% today. Blood sugars improved. Agree with diet orders. Following daily in ICU rounds. Will be reassessing every Wednesday and Wednesday.
--- NOTE | 2021-10-30 13:20 | P.PNIM_ITS ---
Progress Note: A&P Assessment and Plan (1) Acute respiratory failure with hypoxia: Code(s): J96.01 - Acute respiratory failure with hypoxia Status: Acute Assessment and Plan: Acute Respiratory failure secondary to cardiac arrest, pneumonia, pulmonary edema, left pleural effusion. Intubated on 10/04/2021 during code blue -chest x-ray and ABGs reviewed -currently on ASV mode with 80% minute ventilation 35% FiO2 and 8 of PEEP -off all sedation since 10/09 -10/07/2021: Sputum culture growing E coli, sensitive to cefepime, Zosyn, imipenem and gentamicin. - 10/11 -repeat Sputum culture still growing E coli ESBL which is sensitive to imipenem. -10/14 started on imipenem -10/27: repeat sputum cultures growing E coli and MRSA, continue imipenem and added vancomycin on 10/28/2021 -patient not tolerating pressure support ventilation as he becomes tachypneic and diaphoretic -tracheostomy done on 10/17/2021. (2) End-stage renal disease on peritoneal dialysis: Onset Date: Unknown Code(s): N18.6 - End stage renal disease; Z99.2 - Dependence on renal dialysis Status: Acute Assessment and Plan: patient is being followed by Nephrology -patient was on PD but is now being transition to hemodialysis. - surgery has been consulted for tunneled dialysis catheter placement, unable to access left subclavian on 10/20. -10/22/2021: Right-sided tunneled IJ dialysis catheter placed by surgery -hemodialysis this was started on 10/23/2021, they were able to remove 11 her mL of fluid, the catheter clotted and that they have put cath flow in it. -10/24/2021: Hemodialysis was unsuccessful, questionable kinking of the catheter -discussed with Nephrology, patient currently on peritoneal dialysis as his hemodialysis catheter is malfunctioning. -10/27/2021: Dr. Quintana did pulled by the HD catheter 3 cm. Hemodialysis started, the dialysis not had to pull the dialysis catheter with some tension and started functioning. -10/28: HD catheter working fine, discussed with Nephrology, recommended leaving the peritoneal dialysis catheter in place, he stated that LTAC normally take patients with peritoneal dialysis catheter and tunneled HD catheters. Patient was hemodialyzed yesterday and 1 L fluid was removed (3) Cardiac arrest: Code(s): I46.9 - Cardiac arrest, cause unspecified Status: Acute Assessment and Plan: Its possible patient's cardiac arrest secondary to junctional bradycardia or slow AFib Troponins, although mildly elevated in presence of end-stage renal disease, remained flat. EKG on admission showed AFib/ junctional bradycardia with heart rate in 40s -off dopamine 10/12 - off Levophed 10/18 - he may need pacemaker in future - cardiology is following 10/06/2021 Echo: - mild LVH; moderate-severe LV systolic dysfunction, ejection fraction about 30- 35% - Moderate-severe aortic stenosis - Moderate pulmonary hypertension, RVSP 54 mmHg (4) Persistent atrial fibrillation: Code(s): I48.19 - Other persistent atrial fibrillation Status: Acute Assessment and Plan: currently in junctional bradycardia/sinus Jacinto- see above - Eliquis resumed after discussing with Dr. Bryan, pasting inspector, who stated stated that there is a high risk of peritonitis if he places the PEG tube. He recommended checking with the LTAC that if they would take him on a Dobbhoff tube or NG tube for feeding. (5) Bradycardia: Code(s): R00.1 - Bradycardia, unspecified Status: Chronic Assessment and Plan: see above (6) Pneumonia: Code(s): J18.9 - Pneumonia, uns
--- NOTE | 2021-10-30 13:32 | PM.PNNEP ---
Progress Note: A&P Assessment and Plan (1) End-stage renal disease (ESRD): Code(s): N18.6 - End stage renal disease Status: Acute Assessment and Plan: HD yesterday more so for clearance of uremic toxins using citrate bath given history of HIT follow electrolytes and volume status plan next HD treatment tomorrow or Wednesday depending on availability of dialysis nureses (2) Acute respiratory failure with hypoxia: Code(s): J96.01 - Acute respiratory failure with hypoxia Status: Acute Assessment and Plan: continue ventilator support s/p tracheostomy complicated by pneumonia - on antibiotics will likely need LTACH on discharge for ongoing ventilator weaning (3) Hyponatremia: Code(s): E87.1 - Hypo-osmolality and hyponatremia Status: Acute Assessment and Plan: relatively stable at this time will likely correct more with hemodialysis follow trend (4) Hypotension: Code(s): I95.9 - Hypotension, unspecified Status: Acute Assessment and Plan: off pressor support follow trend of hemodynamics on midodrine therapy (5) Anemia: Code(s): D64.9 - Anemia, unspecified Status: Chronic Assessment and Plan: due to ESRD and possibly acute illness on Epogen follow trend of H/H (6) Diabetes: Code(s): E11.9 - Type 2 diabetes mellitus without complications Status: Chronic Assessment and Plan: follow accucheks hypoglycemia improving with tube feeds continue to follow Will continue to follow. Subjective Date/time seen: 10/30/21 13:32 Tolerated dialysis yesterday without any issues or problems; ultrafiltration of about 1000cc with the use/assistance of IV albumin; respiratory status stable; blood sugars improving with tube feeds; awake and alert at this time as well; no issues/events overnight or earlier this AM. Exam Narrative: General: WD/WN male trached and on mechanical ventilation Heart: normal S1 and S2; no rub or gallop Lungs: coarse breath sounds; decreased at bases Abdomen: obese but soft, nontender, nondistended, positive bowel sounds; PD catheter in place Extremities: trace - 1+ chronic bilateral edema Skin: chronic skin changes noted in LEs Objective Data Vital Signs Vital Signs: Vital Signs Temp Pulse Resp BP Pulse Ox 10/30/21 12:00 63 21 H 113/81 100 10/30/21 11:05 65 98 10/30/21 10:00 61 24 H 115/70 100 10/30/21 08:30 59 L 25 H 10/30/21 08:26 65 100 10/30/21 08:22 65 21 H 10/30/21 08:00 36.9 C 61 24 H 105/59 L 100 10/30/21 06:00 63 17 119/71 90 10/30/21 05:16 68 91 10/30/21 04:00 36.4 C 66 17 127/59 L 88 L 10/30/21 02:07 66 28 H 10/30/21 02:01 64 92 10/30/21 02:00 60 24 H 127/73 95 10/30/21 01:57 64 31 H 10/30/21 00:00 36.1 C L 56 L 20 132/64 92 10/29/21 23:10 55 L 93 10/29/21 22:00 92 20 119/64 92 10/29/21 20:30 61 22 H 10/29/21 20:24 58 L 90 10/29/21 20:20 58 L 24 H 10/29/21 20:00 36.0 C L 58 L 24 H 124/72 83 L 10/29/21 18:00 57 L 22 H 124/60 96 10/29/21 17:10 57 L 92 10/29/21 16:40 36.1 C L 54 L 16 134/65 94 10/29/21 16:34 56 L 128/64 10/29/21 16:30 59 L 134/67 10/29/21 16:15 56 L 113/57 L 10/29/21 16:00 57 L 16 114/68 91 10/29/21 15:45 54 L 110/55 L 10/29/21 15:30 56 L 105/57 L 10/29/21 15:15 55 L 96/58 L 10/29/21 15:00 53 L 105/56 L 10/29/21 14:45 55 L 108/58 L 10/29/21 14:30 57 L 97/58 L 10/29/21 14:20 60 20 10/29/21 14:16 57 L 93 10/29/21 14:15 56 L 98/56 L 10/29/21 14:14 56 L 20 10/29/21 14:00 56 L 20 98/56 L 94 Intake/Output Intake/Output: Intake & Output 04/25/22 04/26/22 04/27/22 04/28/22 23:59 23:59 23:59 23:59 Intake Total 1295 2619 1395 2134 Output Total 2217 18 1000 Balance -922 2601 395
[2021-10-30] MEDS: APIXABAN 5 MG TABLET PO ×2 (14:42→20:28)
[2021-10-30 17:30] LABS: Glucose Point of Care 122 mg/dl (65-105)
--- NOTE | 2021-10-30 17:39 | PDONCCN ---
HPI - Date of Consult Date/Time: 10/30/21 17:39 Requesting Physician: Mian Mesa MD Primary Care Provider: PHYSICIAN NOT ON STAFF - Consult Narrative Reason for consult: Mediastinal mass Narrative: Rl Gomez Sr. is a 65 year old male with history of end-stage renal disease on hemodialysis as well as ischemic cardiomyopathy, atrial fibrillation and insulin-dependent diabetes admitted to the hospital on October 03 status post fall. He was on Eliquis and was concerned about bleeding at that time. Patient had a complicated hospital course and had cardiac arrest status post code blue. Patient is on the ventilator and had tracheostomy done. Patient had recent CT abdomen and pelvis on October 29 that showed small right and moderate left pleural effusion with small pericardial effusion. There was 2.3 cm anterior mediastinal mass along with moderate volume of ascites. Liver gallbladder, spleen, pancreas and adrenal glands were normal. He denies any previous history of malignancy. Review of Systems - Review of Systems All systems reviewed & are unremarkable except as noted in HPI and bel (Patient is awake and had tracheostomy done) - Neurologic Reports system reviewed and no additional complaints, except as documented, Reports hearing normal, Denies abnormal speech, Denies confusion, Denies syncope [facility] Medical History: Medical History (Last Reviewed 10/24/21 @ 10:53 by Nikita Quintana MD) Acute kidney injury Amputation toe 2nd toe on the right Charcot's joint of foot Chronic anemia Chronic wound of extremity Coronary artery disease End-stage renal disease on hemodialysis Glaucoma Hyperlipidemia Hypertension Insulin dependent diabetes mellitus Ischemic cardiomyopathy Patient reports recent ejection fraction of about 35%. Osteoarthritis Paroxysmal atrial fibrillation Ventricular tachyarrhythmia Surgical History: Surgical History (Last Reviewed 10/24/21 @ 10:53 by Nikita Quintana MD) History of bilateral knee arthroplasty History of cardiac catheterization Onset Date: ~2005 With history of stent to the LAD. History of implantable cardioverter-defibrillator (ICD) insertion With subsequent removal due to pocket infection. History of orthopedic surgery Right arm ORIF with hardware. History of tonsillectomy History of tracheostomy After lengthy hospitalization in 2018 for sepsis due to cellulitis. S/P dialysis catheter insertion Right chest Status post debridement Multiple debridements of bilateral lower leg wounds over the years. Family History: Family History (Last Reviewed 10/24/21 @ 10:53 by Nikita Quintana MD) Mother Diabetes mellitus Acute myocardial infarction Hypertension Congestive heart failure Father Lung cancer - Social History Social History: Social History (Last Reviewed 10/24/21 @ 10:53 by Nikita Quintana MD) Gender Identity: Gender identity (if verbalized by the patient): Male Alcohol Use: Alcohol intake: never Substance Use: Substance use: never Substance use type: does not use Others: Spiritual care concerns: No Smoking Status: Smoking status: Never smoker Second hand tobacco smoke exposure: No Meds Home Medications Medication Instructions Recorded Confirmed Type Eliquis 5 mg PO Q12H 04/06/20 10/04/21 History allopurinol 100 mg PO DAILY 04/06/20 10/03/21 History brimonidine 0.2 % OPHTHALMIC (EYE) Q12H 04/06/20 10/04/21 History dorzolamide-timolol 1 drp OPHTHALMIC (EYE) Q12H 04/06/20 10/04/21 History gabapentin 300 mg PO Q12H 04/06/20 10/04/21 History insulin aspart U-100 [Novolog See Rx Instructions .ROUTE .COMPLEX 04/06/20 10/03/21 History Flexpen U-100 Insulin] rosuvastatin 10 mg PO HS 04/06/20 10/04/21 History alprazolam 0.25 mg PO BID PRN 05/24/20 10/03/21 History duloxetine 60 mg PO DAILY 05/24/20 10/03/21 History bumetanide 2 mg PO 09,12 06/20/20 10/04/21 History sevelamer ca
[2021-10-30] MEDS: ROSUVASTATIN 10 MG TABLET PO (20:28)
[2021-10-30 20:44] LABS: Vancomycin Random 26.7 ug/mL (10-20)
[2021-10-31] VITALS (15 sets, daily range): BP systolic 109–131; BP diastolic 62–82; PULSE 55–65; RESP 21–28; TEMP 36.2–36.6; O2SAT 100; BMI 36.4
[2021-10-31] MEDS: METOCLOPRAMIDE HCL 10 MG/10 ML SOLN UDC PO ×2 (00:25→06:23)
[2021-10-31 00:32] LABS: Glucose Point of Care 90 mg/dl (65-105)
[2021-10-31] MEDS: ALBUTEROL SULFATE NEB 2.5 MG/0.5 ML INH INHALATION ×2 (02:25→08:23)
[2021-10-31] MEDS: IPRATROPIUM BR 0.02% INH SOLN 0.5 MG/2.5 ML VIAL INHALATION ×2 (02:25→08:23)
[2021-10-31 05:06] LABS: Hematocrit 31.2 % (42.0-52.0); Hemoglobin 9.9 g/dL (14.0-18.0); Mean Corpuscular HGB Conc 31.7 g/dl (32-36); Mean Corpuscular Hemoglobin 30.9 pg (26-34); Mean Corpuscular Volume 97.5 fl (80-100); Mean Platelet Volume 11.7 fl (7.4-10.4); Platelet Count Result 308 k/mm3 (150-375); Red Cell Distribution Width 18.4 % (11.5-14.5); White Blood Count 14.8 K/mm3 (4.5-10.0)
[2021-10-31 05:23] LABS: Alanine Aminotransferase 8 U/L (4-50); Albumin Level 3.3 g/dL (3.5-5.1); Alkaline Phosphatase 112 U/L (38-126); Anion Gap 12 mmol/L (8-16); Aspartate Amino Transferase 25 U/L (17-59); Bilirubin,Total 1.2 mg/dL (0.2-1.3); Blood Urea Nitrogen 59 mg/dL (9-20); Calcium 7.7 mg/dL (8.4-10.2); Carbon Dioxide 25 mmol/L (22-30); Chloride 93 mmol/L (98-107); Estimated CRCL calculation 19 ml/min; Estimated Glomerular Filt Rate 13; Glucose 122 mg/dL (65-110); Magnesium 2.1 mg/dL (1.6-2.3); Potassium 4.3 mmol/L (3.4-5.0); Sodium 130 mmol/L (137-145)
[2021-10-31] MEDS: MIDODRINE HCL 10 MG TABLET FEED TUBE (06:22)
[2021-10-31 08:16] LABS: Glucose Point of Care 127 mg/dl (65-105)
--- NOTE | 2021-10-31 08:23 | WPDINTPN ---
Progress Note: A&P Assessment and Plan (1) Acute respiratory failure with hypoxia: Code(s): J96.01 - Acute respiratory failure with hypoxia Status: Acute Assessment and Plan: Acute Respiratory failure secondary to cardiac arrest, pneumonia, pulmonary edema, left pleural effusion. Intubated on 10/04/2021 during code blue -chest x-ray and ABGs reviewed -currently on ASV mode with 80% minute ventilation 35% FiO2 and 8 of PEEP -off all sedation since 10/09 -10/07/2021: Sputum culture growing E coli, sensitive to cefepime, Zosyn, imipenem and gentamicin. - 10/11 -repeat Sputum culture still growing E coli ESBL which is sensitive to imipenem. -10/14 started on imipenem -10/27: repeat sputum cultures growing E coli and MRSA, continue imipenem and added vancomycin on 10/28/2021. Will continue for a 10 day course -patient not tolerating pressure support ventilation as he becomes tachypneic and diaphoretic -tracheostomy done on 10/17/2021. (2) End-stage renal disease on peritoneal dialysis: Onset Date: Unknown Code(s): N18.6 - End stage renal disease; Z99.2 - Dependence on renal dialysis Status: Acute Assessment and Plan: patient is being followed by Nephrology -patient was on PD but is now being transition to hemodialysis. - surgery has been consulted for tunneled dialysis catheter placement, unable to access left subclavian on 10/20. -10/22/2021: Right-sided tunneled IJ dialysis catheter placed by surgery -hemodialysis this was started on 10/23/2021, they were able to remove 11 her mL of fluid, the catheter clotted and that they have put cath flow in it. -10/24/2021: Hemodialysis was unsuccessful, questionable kinking of the catheter -discussed with Nephrology, patient currently on peritoneal dialysis as his hemodialysis catheter is malfunctioning. -10/27/2021: Dr. Quintana did pulled by the HD catheter 3 cm. Hemodialysis started, the dialysis not had to pull the dialysis catheter with some tension and started functioning. -10/28: HD catheter working fine, discussed with Nephrology, recommended leaving the peritoneal dialysis catheter in place, he stated that LTAC normally take patients with peritoneal dialysis catheter and tunneled HD catheters. Patient was hemodialyzed yesterday and 1 L fluid was removed (3) Cardiac arrest: Code(s): I46.9 - Cardiac arrest, cause unspecified Status: Acute Assessment and Plan: Its possible patient's cardiac arrest secondary to junctional bradycardia or slow AFib Troponins, although mildly elevated in presence of end-stage renal disease, remained flat. EKG on admission showed AFib/ junctional bradycardia with heart rate in 40s -off dopamine 10/12 - off Levophed 10/18 - he may need pacemaker in future - cardiology is following 10/06/2021 Echo: - mild LVH; moderate-severe LV systolic dysfunction, ejection fraction about 30-35% - Moderate-severe aortic stenosis - Moderate pulmonary hypertension, RVSP 54 mmHg (4) Persistent atrial fibrillation: Code(s): I48.19 - Other persistent atrial fibrillation Status: Acute Assessment and Plan: currently in junctional bradycardia/sinus Jacinto- see above - Eliquis resumed after discussing with Dr. Bryan, geophysical laboratory chief, who stated stated that there is a high risk of peritonitis if he places the PEG tube. He recommended checking with the LTAC that if they would take him on a Dobbhoff tube or NG tube for feeding. (5) Bradycardia: Code(s): R00.1 - Bradycardia, unspecified Status: Chronic Assessment and Plan: see above (6) Pneumonia: Code(s): J18.9 - Pneumonia, unspecified organism Status: Acute Assessment and Plan: patient on the floor was being treated for community-acquired pneumonia antibiotics were broadened after intubation as possible patient may have aspirated 10/03/2021 Blood cultures: Negative Procalcitonin level 6.4 10/08: leukoc
[2021-10-31] MEDS: BRIMONIDINE TARTRATE 0.2% OP SOLN 5 ML BTL 1 DROP EACH EYE (08:50)
[2021-10-31] MEDS: DORZOLAMIDE/TIMOLOL OPHTH SOL 10 ML BOTTLE 1 DROP EACH EYE (08:50)
[2021-10-31] MEDS: PANTOPRAZOLE SODIUM IV 40 MG VIAL IV PUSH (08:54)
[2021-10-31] MEDS: SOD HYPOCHLORITE 1/4 STRENGTH 473 ML 1 APPLIC TOPICAL (09:02)
[2021-10-31] MEDS: SILVER SULFADIAZINE 1% CR 50 GM JAR (*BKC) 1 APPLIC TOPICAL (09:03)
[2021-10-31] MEDS: MUPIROCIN 2% OINT 22 GM TUBE 1 APPLIC TOPICAL (09:03)
--- NOTE | 2021-10-31 10:34 | P.PNNP_ITS ---
Progress Note: A&P Assessment and Plan (1) End-stage renal disease (ESRD): Code(s): N18.6 - End stage renal disease Status: Acute Assessment and Plan: * HD yesterday more so for clearance of uremic toxins * using citrate bath given history of HIT * follow electrolytes and volume status * plan next HD treatment tomorrow or Wednesday depending on availability of dialysis nureses (2) Acute respiratory failure with hypoxia: Code(s): J96.01 - Acute respiratory failure with hypoxia Status: Acute Assessment and Plan: * continue ventilator support * s/p tracheostomy * complicated by pneumonia - on antibiotics * will likely need LTACH on discharge for ongoing ventilator weaning (3) Hyponatremia: Code(s): E87.1 - Hypo-osmolality and hyponatremia Status: Acute Assessment and Plan: * relatively stable at this time * will likely correct more with hemodialysis * follow trend (4) Hypotension: Code(s): I95.9 - Hypotension, unspecified Status: Acute Assessment and Plan: * off pressor support * follow trend of hemodynamics * on midodrine therapy (5) Anemia: Code(s): D64.9 - Anemia, unspecified Status: Chronic Assessment and Plan: * due to ESRD and possibly acute illness * on Epogen * follow trend of H/H (6) Diabetes: Code(s): E11.9 - Type 2 diabetes mellitus without complications Status: Chronic Assessment and Plan: * follow accucheks * hypoglycemia improving with tube feeds * continue to follow Ok for transfer [facility] from renal perspective - he is arranged to received dialysis tomorrow at that facility. Subjective Date/time seen: 10/31/21 10:34 Appears to be doing reasonably well at the time of my visit; stable hemodynamics and tolerating tube feeds; tentatively scheduled for transfer to [facility] later this morning; no issues/events overnight or earlier this AM. Exam Narrative: General: WD/WN male trached and on mechanical ventilation Heart: normal S1 and S2; no rub or gallop Lungs: coarse breath sounds; decreased at bases Abdomen: obese but soft, nontender, nondistended, positive bowel sounds; PD catheter in place Extremities: trace - 1+ chronic bilateral edema Skin: chronic skin changes noted in LEs Objective Data Vital Signs Vital Signs: Vital Signs Temp Pulse Resp BP Pulse Ox 10/31/21 08:40 61 24 H 10/31/21 08:26 57 L 100 10/31/21 08:25 59 L 28 H 10/31/21 08:00 36.4 C L 59 L 22 H 109/62 100 10/31/21 06:00 64 21 H 121/64 100 10/31/21 04:34 58 L 100 10/31/21 04:00 36.2 C L 65 22 H 113/77 100 10/31/21 02:31 58 L 22 H 10/31/21 02:28 60 100 10/31/21 02:25 64 24 H 10/31/21 02:00 64 21 H 131/82 100 10/31/21 00:00 36.3 C L 63 24 H 111/68 100 10/30/21 23:10 65 100 10/30/21 22:00 64 22 H 125/64 100 10/30/21 20:03 67 20 10/30/21 20:00 36.4 C 68 24 H 127/63 100 10/30/21 19:48 65 100 10/30/21 19:47 66 21 H 10/30/21 18:00 63 14 135/72 95 10/30/21 17:35 62 97 10/30/21 16:00 36.9 C 67 25 H 95/67 L 100 10/30/21 14:13 62 25 H 10/30/21 14:09 60 100 10/30/21 14:03 60 27 H
--- NOTE | 2021-10-31 10:34 | PM.PNNEP ---
Progress Note: A&P Assessment and Plan (1) End-stage renal disease (ESRD): Code(s): N18.6 - End stage renal disease Status: Acute Assessment and Plan: HD yesterday more so for clearance of uremic toxins using citrate bath given history of HIT follow electrolytes and volume status plan next HD treatment tomorrow or Wednesday depending on availability of dialysis nureses (2) Acute respiratory failure with hypoxia: Code(s): J96.01 - Acute respiratory failure with hypoxia Status: Acute Assessment and Plan: continue ventilator support s/p tracheostomy complicated by pneumonia - on antibiotics will likely need LTACH on discharge for ongoing ventilator weaning (3) Hyponatremia: Code(s): E87.1 - Hypo-osmolality and hyponatremia Status: Acute Assessment and Plan: relatively stable at this time will likely correct more with hemodialysis follow trend (4) Hypotension: Code(s): I95.9 - Hypotension, unspecified Status: Acute Assessment and Plan: off pressor support follow trend of hemodynamics on midodrine therapy (5) Anemia: Code(s): D64.9 - Anemia, unspecified Status: Chronic Assessment and Plan: due to ESRD and possibly acute illness on Epogen follow trend of H/H (6) Diabetes: Code(s): E11.9 - Type 2 diabetes mellitus without complications Status: Chronic Assessment and Plan: follow accucheks hypoglycemia improving with tube feeds continue to follow Ok for transfer to [facility] from renal perspective - he is arranged to received dialysis tomorrow at that facility. Subjective Date/time seen: 10/31/21 10:34 Appears to be doing reasonably well at the time of my visit; stable hemodynamics and tolerating tube feeds; tentatively scheduled for transfer to [facility] later this morning; no issues/events overnight or earlier this AM. Exam Narrative: General: WD/WN male trached and on mechanical ventilation Heart: normal S1 and S2; no rub or gallop Lungs: coarse breath sounds; decreased at bases Abdomen: obese but soft, nontender, nondistended, positive bowel sounds; PD catheter in place Extremities: trace - 1+ chronic bilateral edema Skin: chronic skin changes noted in LEs Objective Data Vital Signs Vital Signs: Vital Signs Temp Pulse Resp BP Pulse Ox 10/31/21 08:40 61 24 H 10/31/21 08:26 57 L 100 10/31/21 08:25 59 L 28 H 10/31/21 08:00 36.4 C L 59 L 22 H 109/62 100 10/31/21 06:00 64 21 H 121/64 100 10/31/21 04:34 58 L 100 10/31/21 04:00 36.2 C L 65 22 H 113/77 100 10/31/21 02:31 58 L 22 H 10/31/21 02:28 60 100 10/31/21 02:25 64 24 H 10/31/21 02:00 64 21 H 131/82 100 10/31/21 00:00 36.3 C L 63 24 H 111/68 100 10/30/21 23:10 65 100 10/30/21 22:00 64 22 H 125/64 100 10/30/21 20:03 67 20 10/30/21 20:00 36.4 C 68 24 H 127/63 100 10/30/21 19:48 65 100 10/30/21 19:47 66 21 H 10/30/21 18:00 63 14 135/72 95 10/30/21 17:35 62 97 10/30/21 16:00 36.9 C 67 25 H 95/67 L 100 10/30/21 14:13 62 25 H 10/30/21 14:09 60 100 10/30/21 14:03 60 27 H 10/30/21 14:00 85 19 101/62 100 10/30/21 12:00 63 21 H 113/81 100 10/30/21 11:05 65 98 Intake/Output Intake/Output: Intake & Output 10/28/21 10/29/21 10/30/21 10/31/21 23:59 23:59 23:59 23:59 Intake Total 2619 1395 2597 580 Output Total 18 1000 Balance 2601 395 2592 580 Meds/Results Medications: Active Medications Generic Name Dose Route Start Last Admin Trade Name Freq PRN Reason Stop Dose Admin Acetaminophen 650 mg 10/25/21 13:52 10/29/21 20:33 Acetaminophen Elixir 325 Mg/10.15 Ml Udc PO 650 mg Q6H PRN Administration Mild Pain (1-3) or Fever Albuterol 2.5 mg 10/13/21 14:00 10/31/21 08:23 Albuterol Sulfate Neb 2.5 Mg/0.5 Ml Inh INHALAT
[2021-10-31] MEDS: allopurinoL 100 MG TABLET PO (10:37)
[2021-10-31] MEDS: APIXABAN 5 MG TABLET PO (10:37)
--- NOTE | 2021-10-31 11:18 | PCNFU ---
Nutrition Follow-Up Complete: Inadequate Oral Intake as related to mechanical ventilation as evidenced by NPO. Goal: Meet estimated nutritional needs Patient is progressing towards goal. We will continue current goal. Pt current nutrition is Nepro tube feedings. Nutrition Recommendation: Nepro at 55 ml/hr over 22 hours. Last recorded weight is 115.2 kg, down from 122.5 kg on admit. Bowel Motility: Last BM reported 10/27 Labs Reviewed: Glu 122, BUN 59, GFR 13, Cr 4.5,Hct 31.2 Meds Noted:PhosLo, Atrovent, Midodrine,Protonix, Crestor, Retacrit, Zyloprim, Miralax, NovoLog, Lantus, Dextrose 10%, Cymbalta, Drisdol, Reglan Skin: left lower leg-venous status, right foot-DM ulcer Additional Notes: Patient is current with Trach. Dobbhoff is being replaced today. Orders for Tube feedings of Nepro at 60 ml/hr over 22hours, which is providing 2376 kcals/107 gms protein/960 ml water. Free water flush is 30 ml q 4 hours. Reassessing patient today, recommending Nepro at 55 ml/hr over 22 hours providing 2178 kcals/98 gms protein/880 ml water. Plans for transfer to LTAC today. Monitoring in ICU rounds and reassessing every Wednesday and Wednesday.
[2021-10-31] MEDS: LORazepam INJ (*CRX) 2 MG/ML VIAL IV PUSH (11:40)
--- NOTE | 2021-10-31 11:56 | PM.TDS ---
Transfer Discharge Sum: Prov Provider Date of admission: 10/05/21 07:53 Primary care physician: PHYSICIAN NOT ON STAFF Admitting clinician: Mor Isaac MD Consults: 10/03/21 Consult to Physician Routine Comment: Consulting Provider: Claudio Jaimes Reason for consultation: bradycardia Has provider been notified: Yes Consult to Physician Routine Comment: Consulting Provider: Raquel Morgan Reason for consultation: hyperkalemia Has provider been notified: Yes 10/05/21 Consult to Physician Routine Comment: Consulting Provider: Luis Alberto Dow Reason for consultation: cardiac arrest/intubated Has provider been notified: Yes 10/07/21 Wound/ET Consult Routine Reason for Consult:: Lower extremity foot wound 10/15/21 Consult to Physician Routine Comment: MD is aware of the pt. consult and spoke with RN Consulting Provider: Tres Li call centre supervisor/MD group to consult: ENT Reason for consultation: Tracheostomy Has provider been notified: Yes Consult to Physician Routine Comment: called office with consult information Consulting Provider: Duane Bryan call centre supervisor/MD group to consult: Gastroenterology Reason for consultation: PEG tube Has provider been notified: Yes 10/17/21 Consult to Physician Routine Comment: md is aware of the pt consult Consulting Provider: Nikita Quintana Reason for consultation: please place a tunneled dialysis catheter Wednesday or Wednesday Has provider been notified: Yes 10/29/21 Consult to Physician Routine Comment: SPOKE WITH DR. FRITZ REGARDING CONSULT Consulting Provider: Agusto Fritz call centre supervisor/MD group to consult: Oncology Reason for consultation: Mediastinal mass Has provider been notified: Yes DS: Admitting Diagnosis Discharge Date 10/31/21 Admitting Diagnosis fall DS: Discharge Diagnosis Discharge Diagnosis (1) Acute respiratory failure with hypoxia: Code(s): J96.01 - Acute respiratory failure with hypoxia Status: Acute Assessment and Plan: Acute Respiratory failure secondary to cardiac arrest, pneumonia, pulmonary edema, left pleural effusion. Intubated on 10/04/2021 during code blue -chest x-ray and ABGs reviewed -currently on ASV mode with 80% minute ventilation 35% FiO2 and 8 of PEEP -off all sedation since 10/09 -10/07/2021: Sputum culture growing E coli, sensitive to cefepime, Zosyn, imipenem and gentamicin. - 10/11 -repeat Sputum culture still growing E coli ESBL which is sensitive to imipenem. -10/14 started on imipenem -10/27: repeat sputum cultures growing E coli and MRSA, continue imipenem and added vancomycin on 10/28/2021. Will continue for a 10 day course -patient not tolerating pressure support ventilation as he becomes tachypneic and diaphoretic -tracheostomy done on 10/17/2021. (2) End-stage renal disease on peritoneal dialysis: Onset Date: Unknown Code(s): N18.6 - End stage renal disease; Z99.2 - Dependence on renal dialysis Status: Acute Assessment and Plan: patient is being followed by Nephrology -patient was on PD but is now being transition to hemodialysis. - surgery has been consulted for tunneled dialysis catheter placement, unable to access left subclavian on 10/20. -10/22/2021: Right-sided tunneled IJ dialysis catheter placed by surgery -hemodialysis this was started on 10/23/2021, they were able to remove 11 her mL of fluid, the catheter clotted and that they have put cath flow in it. -10/24/2021: Hemodialysis was unsuccessful, questionable kinking of the catheter -discussed with Nephrology, patient currently on peritoneal dialysis as his hemodialysis catheter is malfunctioning. -10/27/2021: Dr. Quintana did pulled by the HD catheter 3 cm. Hemodialysis started, the dialysis not had to pull the dialysis catheter with some tension and started functioning. -10/28: HD catheter working fine, discussed with Nephrology, recommended leaving the peritoneal
== END 2021-10-31 11:41 | DRG 4 ==
LOC: ANHED 13:26 → ANHIMU 16:29 → ANHICU 10-04 22:56
PROVIDERS: Internal Medicine; Internal Medicine Nephrology; Nurse Practitioner Adult Health; Otolaryngology; Surgery; Admitting Provider Family Medicine; Emergency Provider Emergency Medicine; Visit Provider Family Medicine
PROC: 0B110F4 Bypass Trachea to Cutaneous with Tracheostomy Device, Open Approach (ICD-10-PCS; principal; 2021-10-17 10:15)
PROC: 059 Upper Veins, Drainage (ICD-10-PCS; CPT 36908; principal; 2021-10-20 14:30)
PROC: 0JH63XZ Insertion of Tunneled Vascular Access Device into Chest Subcutaneous Tissue and Fascia, Percutaneous Approach (ICD-10-PCS; CPT 36908; principal; 2021-10-22 13:30)
DX: J18.9 Pneumonia, unspecified organism (principal); N18.6 End stage renal disease; J96.01 Acute respiratory failure with hypoxia; J98.59 Other diseases of mediastinum, not elsewhere classified; I46.2 Cardiac arrest due to underlying cardiac condition; A41.9 Sepsis, unspecified organism; R65.21 Severe sepsis with septic shock; I48.19 Other persistent atrial fibrillation; M96.89 Other intraoperative and postprocedural complications and disorders of the musculoskeletal system; T82.41XA Breakdown (mechanical) of vascular dialysis catheter, initial encounter; Z16.12 Extended spectrum beta lactamase (ESBL) resistance; I13.2 Hypertensive heart and chronic kidney disease with heart failure and with stage 5 chronic kidney disease, or end stage renal disease; E87.1 Hypo-osmolality and hyponatremia; E87.5 Hyperkalemia; J15.5 Pneumonia due to Escherichia coli; Z79.01 Long term (current) use of anticoagulants; Z89.421 Acquired absence of other right toe(s); I25.10 Atherosclerotic heart disease of native coronary artery without angina pectoris; E11.22 Type 2 diabetes mellitus with diabetic chronic kidney disease; Z99.2 Dependence on renal dialysis; E78.5 Hyperlipidemia, unspecified; Z79.4 Long term (current) use of insulin; I25.5 Ischemic cardiomyopathy; I48.0 Paroxysmal atrial fibrillation; M19.90 Unspecified osteoarthritis, unspecified site; Z96.653 Presence of artificial knee joint, bilateral; R00.1 Bradycardia, unspecified; R77.8 Other specified abnormalities of plasma proteins; Z95.5 Presence of coronary angioplasty implant and graft; E66.01 Morbid (severe) obesity due to excess calories; Z68.36 Body mass index [BMI] 36.0-36.9, adult; D63.1 Anemia in chronic kidney disease; Y84.8 Other medical procedures as the cause of abnormal reaction of the patient, or of later complication, without mention of misadventure at the time of the procedure; Y92.230 Patient room in hospital as the place of occurrence of the external cause; Z91.81 History of falling; E87.70 Fluid overload, unspecified; I35.0 Nonrheumatic aortic (valve) stenosis; I27.20 Pulmonary hypertension, unspecified; Y82.8 Other medical devices associated with adverse incidents; I99.8 Other disorder of circulatory system; I50.9 Heart failure, unspecified
CPT/HCPCS: 36415; 36600; 43752; 70450; 71045; 71250; 72125; 72170; 73564; 73620; 74019; 74176; 76705; 76937; 77001; 80048; 80053; 80202; 82140; 82375; 82805; 82948; 83050; 83605; 83690; 83735; 84100; 84145; 84439; 84443; 84484; 85025; 85027; 85610; 85730; 86140; 86704; 86706; 87040; 87070; 87075; 87077; 87102; 87186; 87205; 87206; 87340; 89051; 90471; 90715; 90945; 92950; 93005; 93923; 93970; 94002; 94003; 94640; 96361; 96365; 96366; 96367; 96368; 96375; 99285; A9270; C1750; C1751; C1769; C8929; C9113; G0257; G0378; J0131; J0171; J0282; J0456; J0610; J0690; J0696; J0743; J1265; J1610; J1644; J1720; J1815; J2060; J2250; J2270; J2370; J2405; J2543; J2710; J2765; J2997; J3010; J3370; J7030; J7040; P9047; Q5105; Q9957